=== PATIENT | male | born 1945 | race Caucasian/White ===

== ENCOUNTER 2020-01-01 10:43 | Inpatient (IN) | payer MEDICARE, SELFPAY ==
--- NOTE | 2020-01-01 | CT_ITS ---
EXAMINATION: CT ABDOMEN AND PELVIS WITHOUT CONTRAST CLINICAL INFORMATION: Right lower quadrant pain COMPARISON: Previous CT of the abdomen and pelvis January 2019 TECHNIQUE: Multidetector volumetric imaging was performed from the superior aspect of the liver through the pubic symphysis. Sagittal and coronal reformatted images were obtained on the technologist's workstation. This CT examination was performed using dose optimization techniques as appropriate, variously including the following: *Automated exposure control *Adjustment of mA and/or kV according to patient size (this includes techniques or standardized protocols for targeted exams where dose is matched to indication/reason for exam; i.e. extremities or head) *Use of iterative reconstruction technique DLP: 570 mGy-cm FINDINGS: LUNG BASES: There is dependent atelectasis seen at the lung bases. LIVER, GALLBLADDER, AND BILIARY TREE: The liver is normal in size, shape, and attenuation. No focal hepatic lesion or biliary ductal dilatation is present. There is a small gallstone in the gallbladder. There is no biliary duct dilatation. PANCREAS: Unremarkable. SPLEEN: Unremarkable. ADRENAL GLANDS: Unremarkable. KIDNEYS AND URETERS: There is bilateral hydronephrosis and ureteral dilatation. No stone is seen. BLADDER: There is a Gaytan catheter in the bladder. The bladder is empty. There is severe diffuse bladder wall thickening. This is new from January 2019 exam. GASTROINTESTINAL TRACT: The sigmoid colon is tortuous. There is mild diverticulosis of the colon. There is some stool seen in the distal colon. Small and large bowel is otherwise unremarkable. The appendix is unremarkable. ABDOMINAL WALL: There is a right inguinal hernia containing fat. LYMPH NODES: Normal. VASCULAR: Unremarkable. PELVIC VISCERA: The prostate gland is enlarged and measures 5.2 x 5.4 cm in AP and transverse dimension. OSSEOUS STRUCTURES: There are severe degenerative changes of the spine area there mild degenerative changes at the hip joints. IMPRESSION: Gaytan catheter in the bladder. Severe diffuse bladder wall thickening new from 2018 exam.. Bilateral hydronephrosis and ureteral dilatation. No stone seen. Enlarged prostate gland. Findings may be related to bladder outlet obstruction from the enlarged prostate gland. Infectious, inflammatory and neoplastic bladder process cannot be excluded. Small gallstone in the gallbladder. No evidence of cholecystitis. Mild diverticulosis.
[2020-01-01 11:18] VITALS: BP 101/58; PULSE 106; RESP 18; TEMP 36.7; O2SAT 99; BMI 34.0
--- NOTE | 2020-01-01 12:21 | PC.NURSE ---
Pt presents to the ED with c/o right groin pain, suspecting a correlation to his previous hernia repair. Awaiting initial provider eval.
[2020-01-01] MEDS: 0.9 % Sodium Chloride 1,000 ML 999 ML IVCONT ×2 (13:10→14:43)
[2020-01-01 13:17] LABS: MANUAL DIFF FLAG NO
[2020-01-01 13:20] LABS: Basophils Percent Auto 0.1 % (0-2); Hematocrit 40.5 % (42-52); Hemoglobin 13.3 g/dl (14.0-18.0); Imm Gran Abs Auto 0.08 X10*3/uL (0.00-0.03); Imm Gran Pct Auto 0.6 % (0.0-0.4); Lymphocytes Absolute Auto 0.7 X10*3/uL (1.2-4.9); Mean Corpuscular HGB Conc 32.8 g/dl (31.0-36.0); Mean Corpuscular Hemoglobin 30.4 pg (27.0-33.0); Mean Corpuscular Volume 92.7 fL (80-98); Mean Platelet Volume 9.7 fL (9.4-12.4); Monocytes Absolute Auto 0.8 X10*3/uL (0.1-1.2); Monocytes Percent Auto 5.7 % (2-11); Neutrophils Absolute Auto 12.8 X10*3/uL (2.0-8.3); Neutrophils Percent Auto 88.6 % (45-73); Platelet Count 294 X10*3/uL (160-400); Red Blood Count 4.37 X10*6/uL (4.60-5.80); White Blood Count 14.5 X10*3/uL (4.8-10.8)
[2020-01-01 13:24] LABS: Glucose Urine UA >=1000 MG/DL (NEG); Leukocyte Esterase Urine 2+ (NEG); Nitrite Urine NEG (NEG); Urine Blood 3+ (NEG); Urine Ketones NEG (NEG); Urine Protein 2+ MG/DL (NEG-TRACE)
[2020-01-01 13:27] LABS: Appearance Urine TURBID; Color Urine YELLOW
[2020-01-01] MEDS: Fluconazole 150 MG TABLET PO (13:41)
[2020-01-01] MEDS: Clotrimazole 1 % Cream 15 GM TUBE TOPICAL (13:41)
[2020-01-01] MEDS: Hydrocortisone 1 % Cream 28.35 GM TUBE 1 APPL TOPICAL (13:41)
[2020-01-01 13:43] LABS: Bacteria Urine 1+ /LPF; WBC Urine TNTC /HPF (0-4)
[2020-01-01 13:44] LABS: Lactic Acid 2.6 mmol/L (0.5-2.0)
[2020-01-01 14:32] VITALS: BP 111/56; PULSE 98; RESP 18; O2SAT 96
[2020-01-01] MEDS: cefTRIAXone sodium 2 GM in 0.9 % Sodium Chloride 50 ML IV (14:43)
[2020-01-01 14:46] VITALS: BP 125/71; PULSE 99; RESP 17; O2SAT 99
[2020-01-01 15:06] LABS: Anion Gap 13 (12-20); Blood Urea Nitrogen 33 mg/dL (9-16); Calcium 7.6 mg/dL (8.4-10.2); Carbon Dioxide 27 mmol/L (22-29); Chloride 98 mmol/L (96-108); Creatinine Clr Calc Pharmacy 33.2; Estimated Glomerular Filt Rate 37; Glucose Random 141 mg/dL (60-115); Potassium 3.7 mmol/l (3.3-5.1); Sodium 134 mmol/L (135-145)
[2020-01-01 15:15] LABS: Reflex Lactate? Lactic Acid Added
--- NOTE | 2020-01-01 15:23 | ED.ABDPAIN ---
HPI - Abdominal Pain General Chief Complaint: Abdominal Pain Stated Complaint: abd pain,diarrhea Time Seen by Provider: 01/01/20 12:20 Source: patient Mode of arrival: wheelchair Limitations: language barrier (Kiswahili Speaking ) History of Present Illness HPI narrative: 74yoM c PMHX of DM, HTN, asthma, arthritis, which is dependent presenting to the ED with complaints of right suprapubic abdominal/groin pain with associated dysuria, increased frequency/urgency with urinary incontinence along with increased weakness and rash around the foreskin of the penis x2 weeks. Denies Fvers, cough, CP/SOB, back pain, hematuria, urinary retention, diarrhea or any other symptoms complaints or concerns at this time. Related Data Home Medications Medication Instructions Recorded Confirmed albuterol sulfate 2 puff PO Q4-6H PRN 01/01/20 01/01/20 amlodipine 5 mg PO DAILY 01/01/20 01/01/20 brimonidine 1 drp OPHTHALMIC (EYE) TID 01/01/20 01/01/20 clopidogrel 75 mg PO DAILY 01/01/20 01/01/20 fluticasone propionate 2 spray INTRANASAL DAILY 01/01/20 01/01/20 glimepiride 1 mg PO DAILY 01/01/20 01/01/20 hydrochlorothiazide 12.5 mg PO DAILY 01/01/20 01/01/20 insulin glargine [Lantus Solostar 45 unit SUBCUT DAILY 01/01/20 01/01/20 U-100 Insulin] pravastatin 80 mg PO DAILY 01/01/20 01/01/20 Allergies Allergy/AdvReac Type Severity Reaction Status Date / Time No Known Allergies Allergy Unverified 12/14/19 18:22 [No Known Allergies*] Review of Systems Review of Systems Yes all other systems are reviewed and are negative Constitutional: Reports as per HPI, Denies chills, Denies fever(s), Denies frequent falls and Denies headache(s) Eyes: Reports as per HPI Reports as per HPI, Denies dizziness, Denies headache(s) and Denies neck pain Cardiovascular: Reports as per HPI, Denies Abdominal Distension, Denies chest pain, Denies chest pain at rest, Denies syncope, Denies rapid heart rate, Denies pedal edema, Denies edema, Denies irregular heart rhythm, Denies claudication, Denies leg edema, Denies lightheadedness, Denies Loss of Consciousness, Denies radiating jaw, neck or arm pain, Denies palpitations, Denies dyspnea, Denies dyspnea on exertion, Denies orthopnea, Denies paroxysmal nocturnal dyspnea and Denies slow heart rate Respiratory: Reports as per HPI, Denies cough, Denies dyspnea and Denies dyspnea on exertion Gastrointestinal: Reports as per HPI, Denies belching, Denies melena, Denies hematochezia, Denies change in bowel habits, Denies tenesmus, Denies coffee ground emesis, Denies constipation, Denies heartburn, Denies diarrhea, Denies nausea and Denies vomiting Genitourinary: Reports as per HPI, Denies hematuria, Reports oliguria, Denies genital lesions, Reports dysuria, Denies penile discharge, Denies scrotal swelling, Denies testicular mass, Denies testicular pain, Reports urinary frequency, Reports urinary hesitancy, Reports urinary incontinence and Reports urinary urgency Musculoskeletal: Reports as per HPI, Denies neck pain, Denies numbness and Denies tingling Skin/Breast: Reports as per HPI Reports Abnormal speech present, Denies dizziness, Denies syncope, Denies frequent falls, Denies headache(s), Denies numbness and Denies tingling Psychiatric: Reports as per HPI Endocrine: Reports as per HPI and Denies palpitations Hematologic/Lymphatic: Reports as per HPI Allergic/Immunologic: Reports as per HPI Physical Exam Vital Signs and I&O and Narrative: Vital Signs and I&O: Vital Signs Temp 98.0 F 01/01/20 11:18 Pulse 103 H 01/01/20 17:01 Resp 13 01/01/20 17:01 BP 144/74 H 01/01/20 17:01 Pulse Ox 97 01/01/20 17:01 Intake & Output 01/01/20 01/01/20 01/02/20 06:59 18:59 06:59 Intake Total 2049 Balance 2049 Weight 84.368 kg Intake: Intake, IV Amoun t 2049 cefTRIAXone so dium 2 gm In 0.9 50 / 50 % Sodium Chlor jason 50 ml @ 100 mls/hr IV ONCE ONE Rx#: [id number] 0.9 % Sodium C hloride 1,000 ml 1999 @ 999 mls/hr I VCONT .Q1H1M RENETTA Rx#:[id number] Body Mass Index 34.0 Const: General: cooperative, healthy appearing, comfortable, no acute distress, well developed, alert, awake and Physically active Nutritional Appearance: average body habitus Orientation/consciousness: patient oriented x3 Limitations: wheelchair HENMT: Head: Yes normal to inspection, Yes No palpable skull fracture present, Yes normocephalic and Yes atraumatic Ears: hearing grossly normal bilaterally General nose exam: Normal external nose present and Normal nares present Face and sinus: Yes normal facial exam Mouth: Normal oral and palatal mucosa present and moist mucous membranes Throat: Yes posterior oropharynx normal Eyes: General: appearance normal, both eyes and all related structures Visual [place]: normal visual copeland by confrontation Alignment and Position: alignment normal Periorbital: periorbital findings normal Eyelids: Yes eyelids normal Conjunctivae: conjunctivae normal Sclerae: sclerae normal Corneas: corneas normal Pupils: Equal, round and reactive pupils present EOM: EOMs intact bilaterally Direct Ophthalmoscopy: normal light reflex Neck: Neck: Yes normal visual inspection, Yes full ROM, Yes no lymphadenopathy, Yes no meningeal signs, Yes trachea midline and Yes supple Chest: Chest palpation & inspection: normal inspection of the chest Resp: Effort & Inspection: normal respiratory effort and able to speak in complete sentences Auscultation: clear to auscultation bilaterally, no crackles, no rales, no rhonchi and no wheezes Cardio: Rate: tachycardic Rhythm: regular rhythm Heart sounds: S1 normal heart sound present and S2 normal heart sound present Peripheral pulses: Peripheral pulses 2+ throughout GI: Inspection: Yes normal to inspection Palpation (GI): Soft to palpation, Tenderness to palpation present (GI) suprapubicly (Right suprapubic); Barragan's sign negative, obturator sign negative, psoas sign negative, with no rebound tenderness and Rovsing's sign negative and No hepatosplenomegaly present Percussion: Yes normal to percussion Auscultation: normal bowel sounds : Other: purulent thick plaque like exudate on the foreskin and glans penis c/w balanitis General: Yes no CVA tenderness Back/Spine/Pelvis: Back: no CVA tenderness Cervical Spine: normal cervical lordosis and cervical ROM normal Thoracic/Lumbar Spine: thoracic and lumbar spine normal to inspection and thoraco-lumbar ROM normal Skin: General skin exam: elasticity normal and turgor normal Lesions: no lesions Rashes: rashes noted (See above no rash to area) Neuro: General: patient oriented x3, moves all extremities, no meningeal signs and CN's II-XI intact bilaterally Cranial nerves: Yes CN's II-XII intact bilaterally, Yes Equal, round and reactive pupils present and Yes Bilaterally intact EOM present Cognition (Neuro): normal cognition Speech: Abnormal speech present Extrem: General: Yes normal to inspection Right upper extremity: normal to inspection Left upper extremity: normal to inspection Right lower extremity: normal to inspection Left lower extremity: normal to inspection Psych: Appearance: grossly normal Mental Status: mental status grossly normal Speech and movement: Normal speech and movement present Affect: normal affect Attitude: cooperative Thought process: Normal thought process present Thought content: Normal thought content present Insight: Good insight present (Psych) Judgement: Good judgement present (Psych) Course Course Course Narrative: Patient seen at 12:20PM - 74yoM c PMHX of DM, HTN, asthma, arthritis, which is dependent presenting to the ED with complaints of right suprapubic abdominal/groin pain with associated dysuria, increased frequency/urgency with urinary incontinence along with increased weakness and rash around the foreskin of the penis x2 weeks. Denies Fvers, cough, CP/SOB, back pain, hematuria, urinary retention, diarrhea or any other symptoms complaints or concerns at this time. -Plan: Labs, CT scan of abd/pelvis c IV contrast, Place a Gaytan Catheter due to moderate balanitis infection. Blood cultures, lactic acid. Provide IVF's, antifungal creams to penis balanitis infection and give 1 dose of 150mg Diflucan then re-evaluate. Labs/CT scan of ab/pelvis at 14:20PM - Elevated WBC at 14,000, BUN 33, creatinine and 1.78, lactic acid 2.6. UA consistent with UTI therefore 2 g of Rocephin ordered at this time. - Plan is to admit for UTI/dehydration/ENRIQUE/sepsis with balanitis. Patient understands agrees with this plan. Hospitalist understands agrees with this plan. MDM - Abdominal Pain Lab Data Result diagrams: 01/01/20 13:06 01/01/20 14:31 Labs: Lab Results 01/01/20 01/01/20 01/01/20 Range/Units 12:56 13:06 13:06 WBC 14.5 H (4.8-10.8) X10*3/uL RBC 4.37 L (4.60-5.80) X10*6/uL Hgb 13.3 L (14.0-18.0) g/dl Hct 40.5 L (42-52) % MCV 92.7 (80-98) fL MCH 30.4 (27.0-33.0) pg MCHC 32.8 (31.0-36.0) g/dl RDW 13.0 (11.0-16.0) % Plt Count 294 (160-400) X10*3/uL MPV 9.7 (9.4-12.4) fL Immature Gran % (Auto) 0.6 H (0.0-0.4) % Neut % (Auto) 88.6 H (45-73) % Lymph % (Auto) 5.0 L (20-40) % [place] % (Auto) 5.7 (2-11) % Eos % (Auto) 0.0 (0-4) % Baso % (Auto) 0.1 (0-2) % Neut # (Auto) 12.8 H (2.0-8.3) X10*3/uL Lymph # (Auto) 0.7 L (1.2-4.9) X10*3/uL [place] # (Auto) 0.8 (0.1-1.2) X10*3/uL Eos # (Auto) 0.0 (0.0-0.4) X10*3/uL Baso # (Auto) 0.0 (0.0-0.2) X10*3/uL Abs Immat Gran (auto) 0.08 H (0.00-0.03) X10*3/uL Absolute Nucleated RBC 0.000 (0.0-0.012) X10*3/uL Nucleated RBC % (auto) 0.0 (0.0-0.2) /100WBC Hold Purple Top SEE NOTE Sodium (135-145) mmol/L Potassium (3.3-5.1) mmol/l Chloride (96-108) mmol/L Carbon Dioxide (22-29) mmol/L Anion Gap (12-20) BUN (9-16) mg/dL Creatinine (0.5-1.4) mg/dL Estim Creat Clear Calc Estimated GFR Random Glucose (60-115) mg/dL Lactic Acid (0.5-2.0) mmol/L Calcium (8.4-10.2) mg/dL Urine Color YELLOW Urine Appearance TURBID Urine pH 6.0 (5.0-8.0) Ur Specific [place] 1.020 (1.005-1.025) Urine Protein 2+ H (NEG-TRACE) MG/DL Urine Glucose (UA) >=1000 H (NEG) MG/DL Urine Ketones NEG (NEG) MG/DL Urine Blood 3+ H (NEG) Urine Nitrite NEG (NEG) Ur Leukocyte Esterase 2+ H (NEG) Urine RBC 76-150 H (0) /HPF Urine WBC TNTC H (0-4) /HPF Ur Squamous Epith Cells NONE /LPF Urine Bacteria 1+ /LPF 01/01/20 01/01/20 Range/Units 13:06 14:31 WBC (4.8-10.8) X10*3/uL RBC (4.60-5.80) X10*6/uL Hgb (14.0-18.0) g/dl Hct (42-52) % MCV (80-98) fL MCH (27.0-33.0) pg MCHC (31.0-36.0) g/dl RDW (11.0-16.0) % Plt Count (160-400) X10*3/uL MPV (9.4-12.4) fL Immature Gran % (Auto) (0.0-0.4) % Neut % (Auto) (45-73) % Lymph % (Auto) (20-40) % [place] % (Auto) (2-11) % Eos % (Auto) (0-4) % Baso % (Auto) (0-2) % Neut # (Auto) (2.0-8.3) X10*3/uL Lymph # (Auto) (1.2-4.9) X10*3/uL [place] # (Auto) (0.1-1.2) X10*3/uL Eos # (Auto) (0.0-0.4) X10*3/uL Baso # (Auto) (0.0-0.2) X10*3/uL Abs Immat Gran (auto) (0.00-0.03) X10*3/uL Absolute Nucleated RBC (0.0-0.012) X10*3/uL Nucleated RBC % (auto) (0.0-0.2) /100WBC Hold Purple Top Sodium 134 L (135-145) mmol/L Potassium 3.7 (3.3-5.1) mmol/l Chloride 98 (96-108) mmol/L Carbon Dioxide 27 (22-29) mmol/L Anion Gap 13 (12-20) BUN 33 H (9-16) mg/dL Creatinine 1.78 H (0.5-1.4) mg/dL Estim Creat Clear Calc 33.2 Estimated GFR 37 Random Glucose 141 H (60-115) mg/dL Lactic Acid 2.6 H* (0.5-2.0) mmol/L Calcium 7.6 L (8.4-10.2) mg/dL Urine Color Urine Appearance Urine pH (5.0-8.0) Ur Specific [place] (1.005-1.025) Urine Protein (NEG-TRACE) MG/DL Urine Glucose (UA) (NEG) MG/DL Urine Ketones (NEG) MG/DL Urine Blood (NEG) Urine Nitrite (NEG) Ur Leukocyte Esterase (NEG) Urine RBC (0) /HPF Urine WBC (0-4) /HPF Ur Squamous Epith Cells /LPF Urine Bacteria /LPF Critical Care Time Critical Care Time Critical Care Time: Yes Total Critical Care Time: 60 Attestation: I attest to the [facility] Discharge Plan Discharge Clinical Impression: Acute UTI, Balanitis, Enlarged prostate, Cholelithiasis, Diverticulosis Sepsis Qualifiers: Sepsis type: sepsis due to unspecified organism Sepsis acute organ dysfunction status: with acute organ dysfunction Severe sepsis acute organ dysfunction type: acute renal failure Acute renal failure type: unspecified Severe sepsis shock status: without septic shock Qualified Code(s): A41.9 - Sepsis, unspecified organism Hydronephrosis Qualifiers: Hydronephrosis type: unspecified Qualified Code(s): N13.30 - Unspecified hydronephrosis Patient Disposition: Admitted As Inpatient [facility] Past Medical History Medical History Arthritis Asthma Diabetes mellitus, type 2 Hiatal hernia Hyperlipidemia Hypertension Surgical History H/O hernia repair Social History Social History Smoked in Last 30 Days: No Use of substances other than those prescribed or required for medical reasons: No Advance Directives: No Advance Directives Information Provided: No
[2020-01-01 17:01] VITALS: BP 144/74; PULSE 103; RESP 13; O2SAT 97
--- NOTE | 2020-01-01 17:38 | PM.IMHP ---
History of Present Illness Date of Service: 01/01/20 Chief Complaint: Flank pain 74-year-old man presenting with flank pain. He reported that he was having urinary symptoms including dark urine, dysuria. He stated that he felt cold but denied fever. 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 He seems mildly vague about his symptoms but reported that the MARINE CARGO SPECIALIST had been putting cream on his penis due to redness and he did not want that so he threw away. He was noted to have tachycardia with heart rate of 103 no fever, he was noted to gave leukocytosis, creatinine, lactic acid 2.6. ABD ct showed severe diffuse bladder wall thickening, bilateral hydronephrosis and ureteral dilatation. Possible bladder outlet obstruction from the enlarged prostate gland. He recieved Rocephin in the ED. He was also given a dose of diflucan and had topical clotriamzole and hydrocortisone. Review of Systems ENT: Comments: Denies any recent fever, chills, decrease in appetite Respiratory denies any shortness of breath, cough or sputum production Cardiovascular denies any chest pain, orthopnea, PND or edema Gastrointestinal denies any abdominal pain, nausea, vomiting, diarrhea Genitourinary denies any frequency hematuria, reports dysuria Denies any weakness or seizures All other systems are reviewed and are negative [facility] [place] Medical History (Updated 01/01/20 @ 18:20 by FLORENTIN Johns) Arthritis Asthma Diabetes mellitus, type 2 Hiatal hernia Hyperlipidemia Hypertension Cognitive capacity: Functional capacity: independent ambulation Pertinent family history: hypertension Surgical History H/O hernia repair Social History Smoked in Last 30 Days: No Use of substances other than those prescribed or required for medical reasons: No Advance Directives: No Advance Directives Information Provided: No Meds Allergies Allergy/AdvReac Type Severity Reaction Status Date / Time No Known Allergies Allergy Unverified 12/14/19 18:22 [No Known Allergies*] Home Medications Medication Instructions Recorded Confirmed Type albuterol sulfate 2 puff PO Q4-6H PRN 01/01/20 01/01/20 History amlodipine 5 mg PO DAILY 01/01/20 01/01/20 History brimonidine 1 drp OPHTHALMIC (EYE) TID 01/01/20 01/01/20 History clopidogrel 75 mg PO DAILY 01/01/20 01/01/20 History fluticasone propionate 2 spray INTRANASAL DAILY 01/01/20 01/01/20 History glimepiride 1 mg PO DAILY 01/01/20 01/01/20 History hydrochlorothiazide 12.5 mg PO DAILY 01/01/20 01/01/20 History insulin glargine [Lantus Solostar 45 unit SUBCUT DAILY 01/01/20 01/01/20 History U-100 Insulin] pravastatin 80 mg PO DAILY 01/01/20 01/01/20 History Physical Exam Vital Signs and Narrative: Vital Signs: Last Vital Signs Temp 98.0 F 01/01/20 11:18 Pulse 103 H 01/01/20 17:01 Resp 13 01/01/20 17:01 BP 144/74 H 01/01/20 17:01 Pulse Ox 97 01/01/20 17:01 Body Mass Index 34.0 Appearing in no acute distress head is normocephalic atraumatic eyes pupils are PERRLA sclera is anicteric mouth throat mucous membranes are intact and moist neck is supple no lymphadenopathy, no JVD noted lung sounds are clear to auscultation heart regular rate rhythm, clear S1, S2 positive bowel sounds, abdomen is soft, nontender patient is alert x3, no focal deficits Results Labs Labs: Laboratory Tests 01/01/20 01/01/20 01/01/20 12:56 13:06 13:06 WBC 14.5 H RBC 4.37 L Hgb 13.3 L Hct 40.5 L MCV 92.7 MCH 30.4 MCHC 32.8 RDW 13.0 Plt Count 294 MPV 9.7 Immature Gran % (Auto) 0.6 H Neut % (Auto) 88.6 H Lymph % (Auto) 5.0 L [place] % (Auto) 5.7 Eos % (Auto) 0.0 Baso % (Auto) 0.1 Neut # (Auto) 12.8 H Lymph # (Auto) 0.7 L [place] # (Auto) 0.8 Eos # (Auto) 0.0 Baso # (Auto) 0.0 Abs Immat Gran (auto) 0.08 H Absolute Nucleated RBC 0.000 Nucleated RBC % (auto) 0.0 Hold Purple Top SEE NOTE Sodium Potassium Chloride Carbon Dioxide Anion Gap BUN Creatinine Estim Creat Clear Calc Estimated GFR Random Glucose Lactic Acid Calcium Urine Color YELLOW Urine Appearance TURBID Urine pH 6.0 Ur Specific [place] 1.020 Urine Protein 2+ H Urine Glucose (UA) >=1000 H Urine Ketones NEG Urine Blood 3+ H Urine Nitrite NEG Ur Leukocyte Esterase 2+ H Urine RBC 76-150 H Urine WBC TNTC H Ur Squamous Epith Cells NONE Urine Bacteria 1+ 01/01/20 01/01/20 13:06 14:31 WBC RBC Hgb Hct MCV MCH MCHC RDW Plt Count MPV Immature Gran % (Auto) Neut % (Auto) Lymph % (Auto) [place] % (Auto) Eos % (Auto) Baso % (Auto) Neut # (Auto) Lymph # (Auto) [place] # (Auto) Eos # (Auto) Baso # (Auto) Abs Immat Gran (auto) Absolute Nucleated RBC Nucleated RBC % (auto) Hold Purple Top Sodium 134 L Potassium 3.7 Chloride 98 Carbon Dioxide 27 Anion Gap 13 BUN 33 H Creatinine 1.78 H Estim Creat Clear Calc 33.2 Estimated GFR 37 Random Glucose 141 H Lactic Acid 2.6 H* Calcium 7.6 L Urine Color Urine Appearance Urine pH Ur Specific [place] Urine Protein Urine Glucose (UA) Urine Ketones Urine Blood Urine Nitrite Ur Leukocyte Esterase Urine RBC Urine WBC Ur Squamous Epith Cells Urine Bacteria Assessment and Plan (1) Severe sepsis: Status: Acute (2) UTI (urinary tract infection): Status: Acute (3) Acute kidney injury superimposed on CKD: Status: Acute (4) Candidiasis of penis: Status: Acute 74-year-old man admitted with severe sepsis related to urinary tract infection. Abdominal CT shows possible bladder outlet obstruction due to enlarged prostate. Also malignancy is not ruled out. #Severe sepsis. Related to urinary tract infection. Leukocytosis, tachycardia, lactic acidosis. Follow blood cultures. #UTI. Rocephin, follow urine cultures. Will consult Urology for possible bladder outlet obstruction with hydronephrosis. Continue Gaytan catheter. #ENRIQUE on CKD. Related to urinary tract infection. IV fluids, continue Gaytan catheter. #Candidiasis. Noted on penis. Will continue with fluconazole and topical hydrocortisone. #Diabetes mellitus. Sliding scale, ADA diet. Continue lantus and glimeperide. #Hypertension. Stable blood pressure. Hold HCTZ due to ENRIQUE on CKD #DVT prophylaxis with heparin. Discussed with Dr. Pereira Full code Quality VTE Deep Vein Thrombosis/Pulmonary Embolism Present on Admission: No
--- NOTE | 2020-01-01 17:55 | P.EN_ITS ---
Event Note Event Note: Patient seen and examined independently and was present during yanez portion of E/M service. Agree with midlevel's history, physical, assessment, and plan. Patient presented with abdominal pain and urinary symptoms and diagnosed to have sepsis related to urinary tract infection and acute on chronic kidney disease stage 3 will continue antibiotic as prescribed follow CBC electrolytes,urine and blood cultures. On examination patient awake alert in no distress no confusion noted. 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 CT abdomen and pelvis reviewed.
[2020-01-01 18:48] LABS: ~Lactic Acid-LAB USE ONLY 0.8 mmol/L (0.5-2.0)
[2020-01-01 22:28] VITALS: BP 131/64; PULSE 106; RESP 20; O2SAT 96
--- NOTE | 2020-01-01 22:30 | PC.NURSE ---
AWAITING ROOM ASSIGNMENT FOR HOURS, THEN DELAY IN GIVING REPORT DUE TO VOLUME IN ER. PT AWAKE AND ALERT, VITALS REPEATED. PT GIVEN SANDWICH, APPLE SAUCE AND SODA.
--- NOTE | 2020-01-01 22:58 | PC.NURSE ---
rn from floor will call back for report.
--- NOTE | 2020-01-01 23:03 | PC.NURSE ---
report given to rn on floor, pt ready for transport.
[2020-01-01 23:58] VITALS: BP 140/61; PULSE 100; RESP 18; TEMP 36.9; O2SAT 96
[2020-01-02] VITALS (8 sets, daily range): BP systolic 103–153; BP diastolic 53–82; PULSE 82–104; RESP 18–20; TEMP 36.1–37.2; O2SAT 90–98; BMI 34.0
[2020-01-02 00:04] LABS: Glucose, Whole Blood 134 mg/dL (60-115)
--- NOTE | 2020-01-02 04:56 | PC.NURSE ---
Addendum entered by Bella Lyle RN 01/02/20 04:57: Patient has beefy red groin/ scrotum and discomfort given levaquin in the ED. Gaytan placed due to urinary incontinence in the ED r/t bladder outlet obstruction from lg prsotate as seen on CT. Patient oriented to room and how to use call hernadez. Patient able to teach back how to use call hernadez and discussed not getting out of bed alone. Stage 2 noted to L-Buttocks clean dry patient repositioned. Oncoming RN notified and will continue to monitor. Original Note: Patient is alert and oriented male [place]er speaking only who lives alone in elderly housing with SERVICE OFFICER services. Patient reports having multiple fall,generalized weakness, urinary issues and irritating/red area to groin. _a
[2020-01-02 06:51] LABS: Basophils Percent Auto 0.2 % (0-2); Hematocrit 34.1 % (42-52); Hemoglobin 11.2 g/dl (14.0-18.0); Imm Gran Abs Auto 0.08 X10*3/uL (0.00-0.03); Imm Gran Pct Auto 0.6 % (0.0-0.4); Lymphocytes Absolute Auto 0.7 X10*3/uL (1.2-4.9); Lymphocytes Percent Auto 5.5 % (20-40); MANUAL DIFF FLAG SCAN; Mean Corpuscular HGB Conc 32.8 g/dl (31.0-36.0); Mean Corpuscular Hemoglobin 30.6 pg (27.0-33.0); Mean Corpuscular Volume 93.2 fL (80-98); Mean Platelet Volume 9.7 fL (9.4-12.4); Monocytes Absolute Auto 0.9 X10*3/uL (0.1-1.2); Monocytes Percent Auto 7.2 % (2-11); Neutrophils Absolute Auto 10.8 X10*3/uL (2.0-8.3); Neutrophils Percent Auto 86.5 % (45-73); Platelet Count 233 X10*3/uL (160-400); Red Blood Count 3.66 X10*6/uL (4.60-5.80); Red Cell Distribution Width 13.1 % (11.0-16.0); SCAN SMEAR FLAG 1; White Blood Count 12.4 X10*3/uL (4.8-10.8)
[2020-01-02 07:23] LABS: Anion Gap 13 (12-20); Blood Urea Nitrogen 27 mg/dL (9-16); Calcium 7.3 mg/dL (8.4-10.2); Carbon Dioxide 27 mmol/L (22-29); Chloride 101 mmol/L (96-108); Creatinine Clr Calc Pharmacy 43.7; Estimated Glomerular Filt Rate 51; Glucose Fasting 95 mg/dL (60-99); Potassium 3.6 mmol/l (3.3-5.1); Sodium 137 mmol/L (135-145)
[2020-01-02 07:32] LABS: SLIDE REVIEW VERIFIED
[2020-01-02 07:38] LABS: Glucose, Whole Blood 91 mg/dL (60-115)
[2020-01-02] MEDS: glipiZIDE 5 MG TABLET 2.5 MG PO (08:03)
[2020-01-02] MEDS: Clopidogrel Bisulfate 75 MG TABLET PO (08:04)
[2020-01-02] MEDS: Heparin Sodium,Porcine 5,000 UNIT/ML VIAL 5000 UNIT SUBCUT ×2 (08:04→17:51)
[2020-01-02] MEDS: amLODIPine Besylate 5 MG TABLET PO (08:05)
[2020-01-02] MEDS: hydroCHLOROthiazide 12.5 MG TABLET PO (08:28)
[2020-01-02] MEDS: Clotrimazole 1 % Cream 15 GM TUBE TOPICAL ×2 (08:30→22:03)
--- NOTE | 2020-01-02 08:56 | PM.UROPN ---
Subjective Subjective Patient reports: no new complaints Interval history: a 74-year-old male with baseline diabetes. Presents with balanitis and paraphimosis Foreskin was reduced at bedside Should continue with clotrimoxazole cream BID to glands Physical Exam Vital Signs and I&O and Narrative: Vital Signs and I&O: Vital Signs Temp 98.9 F 01/02/20 08:00 Pulse 90 01/02/20 08:00 Resp 20 01/02/20 08:00 BP 107/58 L 01/02/20 08:00 Pulse Ox 95 01/02/20 07:00 Intake & Output 01/01/20 01/02/20 01/02/20 18:59 06:59 18:59 Intake Total 2049 / 2529 480 / 2530 Output Total 800 / 800 Balance 1250 / 1730 480 / 1730 Urine Output (Aver age ml/kg/hr) 0.79 0.79 Weight 186 lb Intake: Intake, Oral [place] unt 480 / 480 Intake, IV Amoun t 2049 cefTRIAXone so dium 2 gm In 0.9 50 / 50 % Sodium Chlor jason 50 ml @ 100 mls/hr IV ONCE ONE Rx#: [id number] 0.9 % Sodium C hloride 1,000 ml 2000 / 1999 @ 999 mls/hr I VCONT .Q1H1M [facility] Rx#:[id number] Output: Output, Urine Am ount (Catheter) 800 / 800 Urethral 800 / 800 Other: Number of Incont inent Bowel 1 Movements Last Bowel Movem ent 01/02/20 Stool Color Brown Stool Consistenc y Semi Formed Body Mass Index 34.0 Const: General: cooperative, healthy appearing, comfortable and no acute distress Nutritional Appearance: average body habitus Orientation/consciousness: oriented to person, oriented to place and oriented to time Eyes: General: appearance normal, both eyes and all related structures Chest: Chest palpation & inspection: normal inspection of the chest Resp: Effort & Inspection: normal respiratory effort Cardio: Rate: regular rate GI: Inspection: Yes normal to inspection : Penis: uncircumcised, erythematous and paraphimosis Meatus: meatus normal Scrotum: scrotum normal Skin: Hair: normal Neuro: General: oriented to person, oriented to place and oriented to time Extrem: General: Yes normal to inspection Progress Note: A&P Assessment and plan (1) Balanitis: Status: Acute (2) Paraphimosis: Status: Acute Assessment and Plan: continue topical therapy for fungal infection of glans Foreskin should remain in non retracted position Optimized with alpha-melba for urinary retention Fall Risk Details Current Medications: Current Medications Generic Name Dose Route Start Last Admin Trade Name Freq PRN Reason Stop Dose Admin Albuterol Sulfate 2 puff 01/01/20 23:58 Albuterol Sulfate 90 Mcg 18 Gm Inhaler INHALE Q4H PRN Shortness Of Breath Or Wheezing Amlodipine Besylate 5 mg 01/02/20 09:00 01/02/20 08:05 Amlodipine Besylate 5 Mg Tablet PO 5 mg DAILY [facility] Administration Protocol Brimonidine Tartrate 1 drop 01/01/20 23:58 01/02/20 02:28 Brimonidine Tartrate 0.2% Oph 5 Ml Bottle EYE-BOTH Not Given TID [facility] Clopidogrel Bisulfate 75 mg 01/02/20 09:00 01/02/20 08:04 Clopidogrel Bisulfate 75 Mg Tablet PO 75 mg DAILY [facility] Administration Clotrimazole 1 gm 01/01/20 23:58 01/02/20 08:30 Clotrimazole 1 % Cream 15 Gm Tube TOPICAL 1 gm BID [facility] Administration Fluticasone Propionate 2 spray 01/02/20 09:00 Fluticasone Propionate Nasal 16 Gm [place] NOSTRIL-B DAILY [facility] Glipizide 2.5 mg 01/02/20 07:30 01/02/20 08:03 Glipizide 5 Mg Tablet PO 2.5 mg DAILY@0730 [facility] Administration Heparin Sodium (Porcine) 5,000 unit 01/01/20 18:45 01/02/20 08:04 Heparin Sodium,Porcine 5,000 Unit/Ml Vial SUBCUT 5,000 unit Q12H [facility] Administration Hydrochlorothiazide 12.5 mg 01/02/20 09:00 01/02/20 08:28 Hydrochlorothiazide 12.5 Mg Tablet PO 12.5 mg DAILY [facility] Administration Protocol Hydrocortisone 1 appl 01/01/20 23:58 01/02/20 08:30 Hydrocortisone 1 % Ointment 28.35 Gm Tube TOPICAL Not Given BID [facility] Protocol Ceftriaxone Sodium 1 gm/ 50 mls @ 100 mls/hr 01/02/20 16:00 Sodium Chloride IV Q24H [facility] Insulin Glargine 45 unit 01/02/20 09:00 Insulin Glargine,Hum.Rec.Anlog 100 Unit/Ml 10 Ml Vial SUBCUT DAILY [facility] Insulin Human Lispro 0 unit 01/01/20 23:58 01/02/20 08:06 Insulin Lispro 100 Unit/Ml 3 Ml Vial SUBCUT 01/02/20 23:58 Not Given QIDACHS [facility] Protocol Pharmacy Consult 1 each 01/01/20 18:17 Consult Rx Perform Med Rec MISCELLANE ONCE PRN Consult order Pravastatin Sodium 80 mg 01/02/20 21:00 Pravastatin Sodium 80 Mg Tablet PO BEDTIME [facility] Time Spent With Patient Time: Total time spent is greater than 50% in coordination of care (as documented) at patient's floor/unit and/or counseling patient: Time with patient: 15 - 24 minutes
--- NOTE | 2020-01-02 09:58 | P.CDIC_ITS ---
CDI Concurrent Query Service Date: 01/03/20 Documentation Clarification: Please clarify if you are treating a proba ble/suspected/likely or confirmed: Specifics to documentation: Acute on chronic kidney disease (CKD) Stage 1 - 5 Please specify if known or undetermined Provider Response: CKD Stage 3 Other Diagnosis: acute on chronic kidney disease stage 3. PLEASE DO NOT DELETE/MODIFY EXISTING CONTENT Additional information is needed in order to code to the highest accuracy and appropriate Severity of Illness (SOI). Please clarify the information noted below in your progress notes and discharge summary. Risk Factors/Clinical Indicators/Treatments ENRIQUE superimposed on CKD. Cr. 2.76 from 2.3 Hydration as encouraged. Monitor renal function and electrolytes. Nephro consult. CDS: Meera Alvarado CCS, CDIS Contact Number: [phone] Please Review the information above and exercise your independent professional judgment in responding to the query. If you concur, pleas document in the PROGRESS NOTES and DISCHARGE SUMMARY. If you do not agree with the query, please document in the query above. THIS QUERY IS PART OF THE PERMANENT MEDICAL RECORD
--- NOTE | 2020-01-02 10:11 | MHC.CM.PN ---
Patient lives alone in an apartment and uses a w/c to assist with mobility. Patient receives 29.5 [employer] INTERN hours and a RN or SW, through [facility] . Plan is home with resumption of services and eventually to move in with his Son/Alberto.IMM addressed with Patient and the original has been given to him and a copy has been placed on the chart.
[2020-01-02] MEDS: Brimonidine Tartrate 0.2% Oph 5 ML BOTTLE 1 DROP EYE-BOTH ×2 (10:27→18:10)
[2020-01-02] MEDS: Finasteride 5 MG TABLET PO (10:27)
[2020-01-02] MEDS: Fluticasone Propionate Nasal 16 GM SPRAY 2 SPRAY NOSTRIL-B (10:27)
[2020-01-02 11:20] LABS: Glucose, Whole Blood 177 mg/dL (60-115)
[2020-01-02] MEDS: Insulin Lispro 100 UNIT/ML 3 ML VIAL SUBCUT ×2 (14:07→21:57)
[2020-01-02] MEDS: cefTRIAXone sodium 1 GM in 0.9 % Sodium Chloride 50 ML IV (17:50)
[2020-01-02 18:04] LABS: Glucose, Whole Blood 163 mg/dL (60-115)
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
[2020-01-02 21:33] LABS: Glucose, Whole Blood 232 mg/dL (60-115)
[2020-01-02] MEDS: diphenhydrAMINE HCL 50 MG/ML VIAL 25 MG IVPUSH (21:57)
[2020-01-02] MEDS: Doxazosin Mesylate 2 MG TABLET 4 MG PO (21:58)
[2020-01-02] MEDS: Pravastatin Sodium 80 MG TABLET PO (21:58)
[2020-01-03] VITALS (7 sets, daily range): BP systolic 99–112; BP diastolic 52–61; PULSE 77–86; RESP 18–20; TEMP 36.1–37.2; O2SAT 95–98
[2020-01-03] MEDS: Heparin Sodium,Porcine 5,000 UNIT/ML VIAL 5000 UNIT SUBCUT ×2 (06:24→21:52)
[2020-01-03 08:03] LABS: Glucose, Whole Blood 135 mg/dL (60-115)
[2020-01-03] MEDS: Insulin Glargine,Hum.rec.anlog 100 UNIT/ML 10 ML VIAL 45 UNIT SUBCUT (08:26)
[2020-01-03] MEDS: Clopidogrel Bisulfate 75 MG TABLET PO (08:27)
[2020-01-03] MEDS: glipiZIDE 5 MG TABLET 2.5 MG PO (08:27)
[2020-01-03] MEDS: amLODIPine Besylate 5 MG TABLET PO (08:27)
[2020-01-03] MEDS: Finasteride 5 MG TABLET PO (08:28)
[2020-01-03] MEDS: Fluticasone Propionate Nasal 16 GM SPRAY 2 SPRAY NOSTRIL-B (08:29)
[2020-01-03] MEDS: Hydrocortisone 1 % Ointment 28.35 GM TUBE 1 APPL TOPICAL (08:29)
[2020-01-03] MEDS: Brimonidine Tartrate 0.2% Oph 5 ML BOTTLE 1 DROP EYE-BOTH ×3 (08:30→21:52)
[2020-01-03] MEDS: Clotrimazole 1 % Cream 15 GM TUBE TOPICAL ×2 (08:30→21:52)
[2020-01-03] MEDS: hydroCHLOROthiazide 12.5 MG TABLET PO (08:32)
[2020-01-03 11:27] LABS: Glucose, Whole Blood 257 mg/dL (60-115)
--- NOTE | 2020-01-03 15:55 | CONS_ITS ---
DATE OF SERVICE: 01/02/2020 CONSULTING COMPLAINT: 1. Balanitis. 2. Paraphimosis. 3. Urinary retention. 4. Hydronephrosis. HISTORY OF PRESENT ILLNESS: This is a 74-year-old male. Initially presented with flank pain who reported urinary symptoms. These have been ongoing. He is not on any prostate medications. Was vague about his symptomatology. Had reported that his penis had been red and he had been getting cream for this. Was admitted and noted to have tachycardia with leukocytosis and lactic acid elevation. Abdominal CT has been performed. Notable for bilateral hydronephrosis and Gaytan catheter in the bladder. The bladder is empty. Diffuse bladder wall thickening that is new from a prior exam in January 2019. Large prostate. REVIEW OF SYSTEMS: Otherwise reported as negative. PAST MEDICAL HISTORY: Significant for diabetes, dyslipidemia, hypertension, asthma, and arthritis. SOCIAL HISTORY: Nonsmoker, nondrinker. Lives with family. 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 MEDICATIONS: On admission, reviewed and do not include any prostate medications. PHYSICAL EXAM: VITAL SIGNS: On admission, pulse 103, respiratory rate 13, BP 144/74, pulse ox 97. GENERAL: Appearance consistent with stated age. Awake, alert, and oriented. NECK: Trachea midline. RESPIRATORY: Normal excursion. CARDIOVASCULAR: Good peripheral pulses. Good capillary refill. GASTROINTESTINAL: Abdomen is soft, nontender, and nondistended. : Paraphimosis. Foreskin was reduced at this point in time. Also with balanitis and on clotrimazole. INVESTIGATIONS: WBC 12.4 down from 14.5, left shift. Creatinine 1.35, down from 1.78, baseline is approximately 1.3. ASSESSMENT AND PLAN: 1. Balanitis. Continue with clotrimazole cream. Stop steroid cream. 2. Bilateral hydronephrosis. Has Gaytan catheter in place. Addition of prostate medications, doxazosin and finasteride. Repeat imaging in 48 hours with ultrasound to check for resolution of hydronephrosis. Catheter can remain. Can move to a capped catheter rather than to a leg bag as creatinine has come into normal range. 3. We will continue to follow. MD BRISSA Moore/ROXANA / [phone]
[2020-01-03] MEDS: cefTRIAXone sodium 1 GM in 0.9 % Sodium Chloride 50 ML IV (16:06)
--- NOTE | 2020-01-03 16:11 | P.PNIM_ITS ---
Subjective Subjective Date of Service: 01/03/20 Interval History: patient presented with abdominal pain dark-colored urine and dysuria, patient was complaining of right leg pain and weakness yesterday, but today feels leg pain is significantly better. Patient denies nausea vomiting or diarrhea, no fever chills complain of intermittent lower abdominal discomfort. Review of Systems General no headache , no dizziness ,no fever, chills. CVS no chest pain, no palpitation. Respiratory no cough no sputum production no respiratory distress. Gastrointestinal no nausea no vomiting, lower abdominal pain difficulty emptying urine. Physical Exam Vital Signs and I&O and Narrative: Vital Signs and I&O: Vital Signs Temp 97.6 F 01/03/20 14:40 Pulse 79 01/03/20 14:40 Resp 18 01/03/20 14:40 BP 107/59 L 01/03/20 14:40 Pulse Ox 98 01/03/20 14:40 Intake & Output 01/02/20 01/03/20 01/03/20 18:59 06:59 18:59 Intake Total 600 / 1310 710 / 1310 720 / 720 Output Total 700 / 1550 850 / 1550 800 / 800 Balance -100 / -240 -140 / -240 -80 / -80 Urine Output (Aver age ml/kg/hr) 0.69 0.84 0.79 Weight 84.368 kg Intake: Intake, Oral [place] unt 600 / 1260 660 / 1260 720 / 720 Intake, IV Amoun t 50 / 50 cefTRIAXone so dium 1 gm In 0.9 50 / 50 % Sodium Chlor jason 50 ml @ 100 mls/hr IV Q24H [facility] Rx#: [id number] Output: Output, Urine Am ount 700 / 700 Output, Urine Am ount (Catheter) 850 / 850 800 / 800 Urethral 850 / 850 800 / 800 Other: Meal Refused No: pt is sleeping Breakfast % Eate n 50% 100% Lunch % Eaten 100% Urine SOLOMON Urine Color Straw Yellow Body Mass Index 34.0 General patient resting comfortably in no acute distress. Neck is supple no JVD. CVS regular rate rhythm, Respiratory lungs clear to auscultation, no respiratory distress, no wheeze, no rhonchi. Gastrointestinal abdomen soft, Mild suprapubic discomfort with palpation, bowel sounds audible, no no guarding , no rigidity. Extremities no clubbing cyanosis or edema. Neuro nonfocal patient moving all 4 extremity speech clear. Skin no rash right lower extremity able to move hip knee and ankle no limitation of movement Objective Data Current Medications Generic Name Dose Route Start Last Admin Trade Name Freray PRN Reason Stop Dose Admin Albuterol Sulfate 2 puff 01/01/20 23:58 Albuterol Sulfate 90 Mcg 18 Gm Inhaler INHALE Q4H PRN Shortness Of Breath Or Wheezing Amlodipine Besylate 5 mg 01/02/20 09:00 01/03/20 08:27 Amlodipine Besylate 5 Mg Tablet PO 5 mg DAILY [facility] Administration Protocol Brimonidine Tartrate 1 drop 01/01/20 23:58 01/03/20 14:25 Brimonidine Tartrate 0.2% Oph 5 Ml Bottle EYE-BOTH 1 drop TID [facility] Administration Clopidogrel Bisulfate 75 mg 01/02/20 09:00 01/03/20 08:27 Clopidogrel Bisulfate 75 Mg Tablet PO 75 mg DAILY [facility] Administration Clotrimazole 1 gm 01/01/20 23:58 01/03/20 08:30 Clotrimazole 1 % Cream 15 Gm Tube TOPICAL 1 gm BID [facility] Administration Doxazosin Mesylate 4 mg 01/02/20 21:00 01/02/20 21:58 Doxazosin Mesylate 2 Mg Tablet PO 4 mg BEDTIME [facility] Administration Protocol Finasteride 5 mg 01/02/20 09:00 01/03/20 08:28 Finasteride 5 Mg Tablet PO 5 mg DAILY [facility] Administration Fluticasone Propionate 2 spray 01/02/20 09:00 01/03/20 08:29 Fluticasone Propionate Nasal 16 Gm [place] NOSTRIL-B 2 spray DAILY [facility] Administration Glipizide 2.5 mg 01/02/20 07:30 01/03/20 08:27 Glipizide 5 Mg Tablet PO 2.5 mg DAILY@0730 [facility] Administration Heparin Sodium (Porcine) 5,000 unit 01/01/20 18:45 01/03/20 06:24 Heparin Sodium,Porcine 5,000 Unit/Ml Vial SUBCUT 5,000 unit Q12H [facility] Administration Hydrochlorothiazide 12.5 mg 01/02/20 09:00 01/03/20 08:32 Hydrochlorothiazide 12.5 Mg Tablet PO 12.5 mg DAILY [facility] Administration Protocol Hydrocortisone 1 appl 01/01/20 23:58 01/03/20 08:29 Hydrocortisone 1 % Ointment 28.35 Gm Tube TOPICAL 1 appl BID [facility] Administration Protocol Ceftriaxone Sodium 1 gm/ 50 mls @ 100 mls/hr 01/02/20 16:00 01/02/20 19:54 Sodium Chloride IV Infused Q24H [facility] Infusion Insulin Glargine 45 unit 01/02/20 09:00 01/03/20 08:26 Insulin Glargine,Hum.Rec.Anlog 100 Unit/Ml 10 Ml Vial SUBCUT 45 unit DAILY [facility] Administration Pharmacy Consult 1 each 01/01/20 18:17 Consult Rx Perform Med Rec MISCELLANE ONCE PRN Consult order Pravastatin Sodium 80 mg 01/02/20 21:00 01/02/20 21:58 Pravastatin Sodium 80 Mg Tablet PO 80 mg BEDTIME [facility] Administration Labs CBC & Chem 7: 01/02/20 05:30 01/02/20 05:30 Labs: Laboratory Results - last 24 hr 01/02/20 01/02/20 01/03/20 17:49 21:22 08:00 POC Glucose 163 H 232 H 135 H 01/03/20 11:24 POC Glucose 257 H Microbiology Microbiology Results: Microbiology 01/01/20 13:06 Blood - Venous Blood Culture - Preliminary No growth after 48 hours. 01/01/20 12:51 Urine clean catch - Clean Catch Midstream Urine Culture - Final Escherichia coli 01/01/20 14:31 Blood - Venous Blood Culture - Preliminary No growth after 24 hours. Quality VTE Deep Vein Thrombosis/Pulmonary Embolism Present on Admission: No Assessment and Plan (1) Sepsis: Status: Acute (2) Balanitis: Status: Acute (3) Hydronephrosis: Status: Acute (4) Enlarged prostate: Status: Acute (5) Acute UTI: Status: Acute (6) Diabetes mellitus, type 2: Status: Acute (7) Asthma: Status: Acute (8) Wheelchair dependence: Status: Acute Assessment and Plan: 74-year-old man admitted with severe sepsis related to urinary tract infection. Abdominal CT shows possible bladder outlet obstruction due to enlarged prostate. Also malignancy is not ruled out. #Severe sepsis. Related to urinary tract infection. WBC trending down, no fever,no chills, lactic acidosis resolved, urine culture growing Gram-negative rods blood cultures negative, continue Solomon catheter and IV ceftriaxone day 2 #ENRIQUE on CKD is stage III. Related to urinary tract infection, and retention due to enlarged prostate with bilateral hydronephrosis. continue Solomon catheter , DC IV fluid patient seen by Dr. Fuller he place patient on doxazosin and finasteride he recommend repeat imaging in 48 hours with ultrasound to check for resolution of hydronephrosis will order renal ultrasound for tomorrow morning. He recommend to cap Solomon catheter rather than to a leg bag. #Balanitis. Noted on penis. Will continue with clotrimazole and DC topical hydrocortisone. #Diabetes mellitus. blood sugar elevated continue Sliding scale, ADA diet, lantus and glimeperide. #Hypertension. Stable blood pressure, continue to hold hydrochlorothiazide. #DVT prophylaxis with heparin.
[2020-01-03 20:49] LABS: Glucose, Whole Blood 320 mg/dL (60-115)
[2020-01-03] MEDS: Doxazosin Mesylate 2 MG TABLET 4 MG PO (21:52)
[2020-01-03] MEDS: Pravastatin Sodium 80 MG TABLET PO (21:53)
[2020-01-04 04:00] VITALS: BP 139/75; PULSE 69; RESP 19; TEMP 36.8; O2SAT 96
[2020-01-04] MEDS: Heparin Sodium,Porcine 5,000 UNIT/ML VIAL 5000 UNIT SUBCUT ×2 (05:33→21:00)
[2020-01-04 06:58] LABS: Basophils Percent Auto 0.6 % (0-2); Eosinophils Absolute Auto 0.4 X10*3/uL (0.0-0.4); Eosinophils Percent Auto 7.6 % (0-4); Hematocrit 34.5 % (42-52); Hemoglobin 11.3 g/dl (14.0-18.0); Imm Gran Abs Auto 0.03 X10*3/uL (0.00-0.03); Imm Gran Pct Auto 0.6 % (0.0-0.4); Lymphocytes Absolute Auto 0.7 X10*3/uL (1.2-4.9); Lymphocytes Percent Auto 13.4 % (20-40); MANUAL DIFF FLAG SCAN; Mean Corpuscular HGB Conc 32.8 g/dl (31.0-36.0); Mean Corpuscular Hemoglobin 30.5 pg (27.0-33.0); Mean Platelet Volume 9.4 fL (9.4-12.4); Monocytes Absolute Auto 0.5 X10*3/uL (0.1-1.2); Monocytes Percent Auto 9.8 % (2-11); Neutrophils Absolute Auto 3.4 X10*3/uL (2.0-8.3); Platelet Count 211 X10*3/uL (160-400); Red Blood Count 3.71 X10*6/uL (4.60-5.80); SCAN SMEAR FLAG 1
[2020-01-04 07:33] VITALS: BP 133/66; PULSE 79; RESP 18; TEMP 36.6; O2SAT 96
[2020-01-04 07:34] LABS: Anion Gap 12 (12-20); Blood Urea Nitrogen 38 mg/dL (9-16); Calcium 7.5 mg/dL (8.4-10.2); Carbon Dioxide 29 mmol/L (22-29); Chloride 99 mmol/L (96-108); Creatinine Clr Calc Pharmacy 42.2; Estimated Glomerular Filt Rate 49; Glucose Random 334 mg/dL (60-115); Potassium 4.6 mmol/l (3.3-5.1); Sodium 135 mmol/L (135-145)
[2020-01-04 07:35] LABS: Glucose, Whole Blood 293 mg/dL (60-115)
[2020-01-04 07:36] LABS: SLIDE REVIEW VERIFIED
[2020-01-04] MEDS: Finasteride 5 MG TABLET PO (07:55)
[2020-01-04] MEDS: Clotrimazole 1 % Cream 15 GM TUBE TOPICAL ×2 (07:56→21:00)
[2020-01-04] MEDS: glipiZIDE 5 MG TABLET 2.5 MG PO (07:56)
[2020-01-04] MEDS: amLODIPine Besylate 5 MG TABLET PO (07:56)
[2020-01-04] MEDS: Clopidogrel Bisulfate 75 MG TABLET PO (07:56)
[2020-01-04] MEDS: Fluticasone Propionate Nasal 16 GM SPRAY 2 SPRAY NOSTRIL-B (07:57)
[2020-01-04] MEDS: Insulin Glargine,Hum.rec.anlog 100 UNIT/ML 10 ML VIAL 45 UNIT SUBCUT (07:57)
[2020-01-04] MEDS: Brimonidine Tartrate 0.2% Oph 5 ML BOTTLE 1 DROP EYE-BOTH ×3 (08:00→21:00)
--- NOTE | 2020-01-04 11:21 | US_ITS ---
EXAMINATION: US renal and PELVIS LIMITED (BLADDER) CLINICAL INFORMATION: Hydronephrosis. COMPARISON: Previous CT of the abdomen and pelvis 01/01/2020 TECHNIQUE: Real-time imaging of the kidneys and bladder. FINDINGS: The kidneys are normal in contour and symmetric in size in the right kidney measuring 11.0 x 5.6 x 6.8 cm and the left kidney measuring 11.1 x 6.7 x 5.6 cm. Renal cortical thickness and echogenicity is normal. No hydronephrosis is seen. The visualized right proximal and mid ureter is dilated. No renal stone or mass is seen. BLADDER: There is a Gaytan catheter in the bladder. The bladder wall is diffusely thickened and hypervascular measuring up to 1.7 cm in thickness. The prostate gland is enlarged and protrudes into the base of the bladder. The prostate gland measures 5.6 x 5.8 x 4.6 cm, volume 77 mL. Ureteral jets are not identified.. IMPRESSION: No hydronephrosis. The visualized right proximal and mid ureter is dilated. Gaytan catheter in the bladder. Diffusely thickened hypervascular bladder wall. Enlarged prostate gland that protrudes into the base of the bladder.
[2020-01-04 12:17] VITALS: BP 105/55; PULSE 79; RESP 18; TEMP 36.4; O2SAT 96
[2020-01-04 12:20] LABS: Glucose, Whole Blood 291 mg/dL (60-115)
--- NOTE | 2020-01-04 14:31 | PM.IMPN ---
Subjective Subjective Date of Service: 01/04/20 Physical Exam Vital Signs and I&O and Narrative: Vital Signs and I&O: Vital Signs Temp 97.5 F 01/04/20 12:17 Pulse 79 01/04/20 12:17 Resp 18 01/04/20 12:17 BP 105/55 L 01/04/20 12:17 Pulse Ox 96 01/04/20 12:17 Intake & Output 01/03/20 01/04/20 01/04/20 18:59 06:59 18:59 Intake Total 770 / 770 600 / 600 Output Total 800 / 2900 2100 / 2900 200 / 200 Balance -30 / -2130 -2100 / -2130 400 / 400 Urine Output (Aver age ml/kg/hr) 0.79 2.07 0.20 Intake: Intake, Oral Anil unt 720 / 720 600 / 600 Intake, IV Amoun t 50 / 50 cefTRIAXone so dium 1 gm In 0.9 50 / 50 % Sodium Chlor jason 50 ml @ 100 mls/hr IV Q24H [facility] Rx#: [id number] Output: Output, Urine Am ount 200 / 200 Output, Urine Am ount (Catheter) 800 / 2700 1900 / 2700 200 / 200 Urethral 800 / 2700 1900 / 2700 200 / 200 Other: Meal Refused Yes NPO Yes Breakfast % Eate n 100% 100% Lunch % Eaten 100% 100% Urine Color Yellow Body Mass Index 34.0 Objective Data Current Medications Generic Name Dose Route Start Last Admin Trade Name Freq PRN Reason Stop Dose Admin Albuterol Sulfate 2 puff 01/01/20 23:58 Albuterol Sulfate 90 Mcg 18 Gm Inhaler INHALE Q4H PRN Shortness Of Breath Or Wheezing Amlodipine Besylate 5 mg 01/02/20 09:00 01/04/20 07:56 Amlodipine Besylate 5 Mg Tablet PO 5 mg DAILY RENETTA Administration Protocol Brimonidine Tartrate 1 drop 01/01/20 23:58 01/04/20 08:00 Brimonidine Tartrate 0.2% Oph 5 Ml Bottle EYE-BOTH 1 drop TID RENETTA Administration Clopidogrel Bisulfate 75 mg 01/02/20 09:00 01/04/20 07:56 Clopidogrel Bisulfate 75 Mg Tablet PO 75 mg DAILY RENETTA Administration Clotrimazole 1 gm 01/01/20 23:58 01/04/20 07:56 Clotrimazole 1 % Cream 15 Gm Tube TOPICAL 1 gm BID RENETTA Administration Doxazosin Mesylate 4 mg 01/02/20 21:00 01/03/20 21:52 Doxazosin Mesylate 2 Mg Tablet PO 4 mg BEDTIME RENETTA Administration Protocol Finasteride 5 mg 01/02/20 09:00 01/04/20 07:55 Finasteride 5 Mg Tablet PO 5 mg DAILY RENETTA Administration Fluticasone Propionate 2 spray 01/02/20 09:00 01/04/20 07:57 Fluticasone Propionate Nasal 16 Gm [place] NOSTRIL-B 2 spray DAILY RENETTA Administration Glipizide 2.5 mg 01/02/20 07:30 01/04/20 07:56 Glipizide 5 Mg Tablet PO 2.5 mg DAILY@0730 RENETTA Administration Heparin Sodium (Porcine) 5,000 unit 01/01/20 18:45 01/04/20 05:33 Heparin Sodium,Porcine 5,000 Unit/Ml Vial SUBCUT 5,000 unit Q12H RENETTA Administration Ceftriaxone Sodium 1 gm/ 50 mls @ 100 mls/hr 01/02/20 16:00 01/03/20 16:52 Sodium Chloride IV Infused Q24H RENETTA Infusion Insulin Glargine 45 unit 01/02/20 09:00 01/04/20 07:57 Insulin Glargine,Hum.Rec.Anlog 100 Unit/Ml 10 Ml Vial SUBCUT 45 unit DAILY RENETTA Administration Insulin Human Lispro 0 unit 01/04/20 16:30 Insulin Lispro 100 Unit/Ml 3 Ml Vial SUBCUT QIDACHS [facility] Protocol Pharmacy Consult 1 each 01/01/20 18:17 Consult Rx Perform Med Rec MISCELLANE ONCE PRN Consult order Pravastatin Sodium 80 mg 01/02/20 21:00 01/03/20 21:53 Pravastatin Sodium 80 Mg Tablet PO 80 mg BEDTIME RENETTA Administration Labs CBC & Chem 7: 01/04/20 06:28 01/04/20 06:28 Labs: Laboratory Results - last 24 hr 01/03/20 01/04/20 01/04/20 20:40 06:28 06:28 MCV 93.0 MCH 30.5 MCHC 32.8 RDW 13.0 Plt Count 211 MPV 9.4 Immature Gran % (Auto) 0.6 H Neut % (Auto) 68.0 Lymph % (Auto) 13.4 L Miller % (Auto) 9.8 Eos % (Auto) 7.6 H Baso % (Auto) 0.6 Lymph # (Auto) 0.7 L Miller # (Auto) 0.5 Eos # (Auto) 0.4 Baso # (Auto) 0.0 Abs Immat Gran (auto) 0.03 Absolute Neuts (auto) 3.4 Absolute Nucleated RBC 0.000 Nucleated RBC % (auto) 0.0 Smear Tech's Comments VERIFIED Anion Gap 12 Estim Creat Clear Calc 42.2 Estimated GFR 49 POC Glucose 320 H Random Glucose 334 H D Calcium 7.5 L 01/04/20 01/04/20 07:31 12:13 MCV MCH MCHC RDW Plt Count MPV Immature Gran % (Auto) Neut % (Auto) Lymph % (Auto) Miller % (Auto) Eos % (Auto) Baso % (Auto) Lymph # (Auto) Miller # (Auto) Eos # (Auto) Baso # (Auto) Abs Immat Gran (auto) Absolute Neuts (auto) Absolute Nucleated RBC Nucleated RBC % (auto) Smear Tech's Comments Anion Gap Estim Creat Clear Calc Estimated GFR POC Glucose 293 H 291 H Random Glucose Calcium Microbiology Microbiology Results: Microbiology 01/01/20 14:31 Blood - Venous Blood Culture - Preliminary No growth after 48 hours. 01/01/20 13:06 Blood - Venous Blood Culture - Preliminary No growth after 48 hours. 01/01/20 12:51 Urine clean catch - Clean Catch Midstream Urine Culture - Final Escherichia coli Progress Note: A&P (1) Acute UTI: Status: Acute (2) Acute kidney injury superimposed on CKD: Status: Acute (3) Balanitis: Status: Acute (4) Hydronephrosis: Status: Acute Assessment and Plan: 74-year-old man admitted with severe sepsis related to urinary tract infection. Abdominal CT shows possible bladder outlet obstruction due to enlarged prostate. Also malignancy is not ruled out. 1.Severe sepsis. Related to urinary tract infection. WBC trending down, no fever,no chills, lactic acidosis resolved, urine culture growing E coli sensitive to ceftriaxone, blood culture prelim negative at 48 hour, continue Gaytan catheter and IV ceftriaxone day 3 2.ENRIQUE on CKD is stage III. Related to urinary tract infection, and retention due to enlarged prostate with bilateral hydronephrosis. continue Gaytan catheter off IV fluid patient seen by Dr. Fuller he place patient on doxazosin and finasteride . renal sono-? hydroureter: He recommend to cap Gaytan catheter rather than to a leg bag. urology fu pending 3.Balanitis. Noted on penis. Will continue with clotrimazole and DC topical hydrocortisone. 4.Diabetes mellitus. blood sugar elevated continue Sliding scale, ADA diet, lantus and glimeperide. 5.Hypertension. Stable blood pressure, continue to hold hydrochlorothiazide. 6. DVT prophylaxis with heparin. Quality VTE Deep Vein Thrombosis/Pulmonary Embolism Present on Admission: No
[2020-01-04 15:29] VITALS: BP 140/70; PULSE 85; RESP 14; TEMP 36.8; O2SAT 97
--- NOTE | 2020-01-04 16:35 | PM.UROPN ---
Subjective Subjective Patient reports: no new complaints Interval history: A 74-year-old male with baseline diabetes. original presentation with balanitis and paraphimosis On imaging was found to have bilateral chronic hydronephrosis with hydroureter down the level bladder Repeat ultrasound shows persistence of hydronephrosis on right Resolved on left Creatinine at baseline Presumed chronic in nature Would continue with catheter Physical Exam Vital Signs and I&O and Narrative: Vital Signs and I&O: Vital Signs Temp 98.3 F 01/04/20 15:29 Pulse 85 01/04/20 15:29 Resp 14 01/04/20 15:29 BP 140/70 H 01/04/20 15:29 Pulse Ox 97 01/04/20 15:29 Intake & Output 01/03/20 01/04/20 01/04/20 18:59 06:59 18:59 Intake Total 770 / 770 600 / 600 Output Total 800 / 2900 2100 / 2900 200 / 200 Balance -30 / -2130 -2100 / -2130 400 / 400 Urine Output (Aver age ml/kg/hr) 0.79 2.07 0.20 Intake: Intake, Oral Anil unt 720 / 720 600 / 600 Intake, IV Amoun t 50 / 50 cefTRIAXone so dium 1 gm In 0.9 50 / 50 % Sodium Chlor jason 50 ml @ 100 mls/hr IV Q24H [facility] Rx#: [id number] Output: Output, Urine Am ount 200 / 200 Output, Urine Am ount (Catheter) 800 / 2700 1900 / 2700 200 / 200 Urethral 800 / 2700 1900 / 2700 200 / 200 Other: Meal Refused Yes NPO Yes Breakfast % Eate n 100% 100% Lunch % Eaten 100% 100% Urine Color Yellow Body Mass Index 34.0 Const: General: cooperative, healthy appearing, comfortable and no acute distress Nutritional Appearance: average body habitus Orientation/consciousness: oriented to person, oriented to place and oriented to time Eyes: General: appearance normal, both eyes and all related structures Chest: Chest palpation & inspection: normal inspection of the chest Resp: Effort & Inspection: normal respiratory effort Cardio: Rate: regular rate GI: Inspection: Yes normal to inspection Skin: Hair: normal Neuro: General: oriented to person, oriented to place and oriented to time Extrem: General: Yes normal to inspection Progress Note: A&P Assessment and plan (1) Hydronephrosis: Status: Acute (2) Paraphimosis: Status: Acute Assessment and Plan: creatinine at baseline Paraphimosis resolved Balanitis clearing Would cap catheter and teach him how to use. Will need outpatient evaluation for prostate procedure Fall Risk Details Current Medications: Current Medications Generic Name Dose Route Start Last Admin Trade Name Freq PRN Reason Stop Dose Admin Albuterol Sulfate 2 puff 01/01/20 23:58 Albuterol Sulfate 90 Mcg 18 Gm Inhaler INHALE Q4H PRN Shortness Of Breath Or Wheezing Amlodipine Besylate 5 mg 01/02/20 09:00 01/04/20 07:56 Amlodipine Besylate 5 Mg Tablet PO 5 mg DAILY RENETTA Administration Protocol Brimonidine Tartrate 1 drop 01/01/20 23:58 01/04/20 08:00 Brimonidine Tartrate 0.2% Oph 5 Ml Bottle EYE-BOTH 1 drop TID RENETTA Administration Clopidogrel Bisulfate 75 mg 01/02/20 09:00 01/04/20 07:56 Clopidogrel Bisulfate 75 Mg Tablet PO 75 mg DAILY RENETTA Administration Clotrimazole 1 gm 01/01/20 23:58 01/04/20 07:56 Clotrimazole 1 % Cream 15 Gm Tube TOPICAL 1 gm BID RENETTA Administration Doxazosin Mesylate 4 mg 01/02/20 21:00 01/03/20 21:52 Doxazosin Mesylate 2 Mg Tablet PO 4 mg BEDTIME RENETTA Administration Protocol Finasteride 5 mg 01/02/20 09:00 01/04/20 07:55 Finasteride 5 Mg Tablet PO 5 mg DAILY RENETTA Administration Fluticasone Propionate 2 spray 01/02/20 09:00 01/04/20 07:57 Fluticasone Propionate Nasal 16 Gm [place] NOSTRIL-B 2 spray DAILY RENETTA Administration Glipizide 2.5 mg 01/02/20 07:30 01/04/20 07:56 Glipizide 5 Mg Tablet PO 2.5 mg DAILY@0730 RENETTA Administration Heparin Sodium (Porcine) 5,000 unit 01/01/20 18:45 01/04/20 05:33 Heparin Sodium,Porcine 5,000 Unit/Ml Vial SUBCUT 5,000 unit Q12H RENETTA Administration Ceftriaxone Sodium 1 gm/ 50 mls @ 100 mls/hr 01/02/20 16:00 01/03/20 16:52 Sodium Chloride IV Infused Q24H R[facility]TA Infusion Insulin Glargine 45 unit 01/02/20 09:00 01/04/20 07:57 Insulin Glargine,Hum.Rec.Anlog 100 Unit/Ml 10 Ml Vial SUBCUT 45 unit DAILY RENETTA Administration Insulin Human Lispro 0 unit 01/04/20 16:30 Insulin Lispro 100 Unit/Ml 3 Ml Vial SUBCUT QIDACHS [facility] Protocol Pharmacy Consult 1 each 01/01/20 18:17 Consult Rx Perform Med Rec MISCELLANE ONCE PRN Consult order Pravastatin Sodium 80 mg 01/02/20 21:00 01/03/20 21:53 Pravastatin Sodium 80 Mg Tablet PO 80 mg BEDTIME RENETTA Administration Time Spent With Patient Time: Total time spent is greater than 50% in coordination of care (as documented) at patient's floor/unit and/or counseling patient: Time with patient: less than 15 minutes
[2020-01-04 16:44] LABS: Glucose, Whole Blood 298 mg/dL (60-115)
[2020-01-04] MEDS: cefTRIAXone sodium 1 GM in 0.9 % Sodium Chloride 50 ML IV (16:49)
[2020-01-04] MEDS: Insulin Lispro 100 UNIT/ML 3 ML VIAL SUBCUT ×2 (16:51→21:10)
[2020-01-04 19:59] VITALS: BP 100/51; PULSE 85; RESP 18; TEMP 37.3; O2SAT 96
[2020-01-04] MEDS: Pravastatin Sodium 80 MG TABLET PO (20:59)
[2020-01-04] MEDS: Doxazosin Mesylate 2 MG TABLET 4 MG PO (21:01)
[2020-01-04 21:11] LABS: Glucose, Whole Blood 246 mg/dL (60-115)
[2020-01-05] VITALS (8 sets, daily range): BP systolic 107–151; BP diastolic 59–68; PULSE 74–89; RESP 17–20; TEMP 35.9–36.3; O2SAT 96–98
[2020-01-05 00:35] LABS: Glucose, Whole Blood 227 mg/dL (60-115)
[2020-01-05] MEDS: Heparin Sodium,Porcine 5,000 UNIT/ML VIAL 5000 UNIT SUBCUT ×2 (05:50→18:22)
[2020-01-05 07:34] LABS: Glucose, Whole Blood 227 mg/dL (60-115)
[2020-01-05 08:02] LABS: Glucose, Whole Blood 353 mg/dL (60-115)
[2020-01-05] MEDS: Insulin Lispro 100 UNIT/ML 3 ML VIAL SUBCUT ×4 (08:41→21:09)
[2020-01-05] MEDS: amLODIPine Besylate 5 MG TABLET PO (08:42)
[2020-01-05] MEDS: Finasteride 5 MG TABLET PO (08:42)
[2020-01-05] MEDS: Clopidogrel Bisulfate 75 MG TABLET PO (08:42)
[2020-01-05] MEDS: glipiZIDE 5 MG TABLET 2.5 MG PO (08:42)
[2020-01-05] MEDS: Insulin Glargine,Hum.rec.anlog 100 UNIT/ML 10 ML VIAL 50 UNIT SUBCUT (09:11)
[2020-01-05] MEDS: Fluticasone Propionate Nasal 16 GM SPRAY 2 SPRAY NOSTRIL-B (09:13)
[2020-01-05] MEDS: Clotrimazole 1 % Cream 15 GM TUBE TOPICAL ×2 (09:14→21:09)
[2020-01-05] MEDS: Brimonidine Tartrate 0.2% Oph 5 ML BOTTLE 1 DROP EYE-BOTH ×3 (09:15→21:09)
[2020-01-05 11:56] LABS: Glucose, Whole Blood 285 mg/dL (60-115)
--- NOTE | 2020-01-05 14:43 | PC.NURSE ---
f/c removed at 10am. unable to void. bladder scan pvr was 500ml. #16 Fr Cath inserted without diff. draining bloody urine at this time.
--- NOTE | 2020-01-05 14:59 | MHC.CM.PN ---
Addendum entered by Bella Wills 01/05/20 15:47: [facility] IS ACCEPTING PATIENT HOSPITALIST MADE AWARE. PATIENT WILL DC WEDNESDAY (ANTICIPATED) Original Note: PER [facility] STAFF MEMBER, PATIENT IS STARTED WITH [facility] OF TODAY. [facility]AN, TRANSITION OF CARE RN, AWARE AND GIVES AUTH TO PUT IN REFERRAL TO [facility], [facility] IS NOT TAKING REFERRALS FOR WEEKEND DC PER CONVERSATION WITH CASE MANAGEMENT TEAM. REAGAN'S CONTACT NUMBER IS [phone]
--- NOTE | 2020-01-05 15:06 | MHC.CLN ---
PO INTAKE 100% DIET RX: 1500-APPROPRIATE PT RECEIVING GLUCERNA BID AND SHEREE FOR WOUND HEALING FOLLOWING
--- NOTE | 2020-01-05 15:28 | PC.NURSE ---
1500 F/C reinserted easily. Was unable to void. PVR was 500ml. Gaytan now draining bloody urine. Dr Moraes and Dr Fuller aware
[2020-01-05] MEDS: cefTRIAXone sodium 1 GM in 0.9 % Sodium Chloride 50 ML IV (16:01)
[2020-01-05 17:10] LABS: Glucose, Whole Blood 164 mg/dL (60-115)
--- NOTE | 2020-01-05 19:00 | PM.IMPN ---
Subjective Subjective Date of Service: 01/05/20 Interval History: Hematuria Review of Systems patient denies any chest pain or shortness of breath or abdominal pain Physical Exam Vital Signs and I&O and Narrative: Vital Signs and I&O: Vital Signs Temp 97.2 F 01/05/20 15:18 Pulse 76 01/05/20 15:18 Resp 17 01/05/20 15:18 BP 107/60 01/05/20 15:18 Pulse Ox 97 01/05/20 15:18 Intake & Output 01/05/20 01/05/20 01/06/20 06:59 18:59 06:59 Intake Total 180 / 830 810 / 810 Output Total 1300 / 2300 1400 / 1400 Balance -1120 / -1470 -590 / -590 Urine Output (Aver age ml/kg/hr) 1.28 1.38 Intake: Intake, Oral [place] unt 180 / 780 760 / 760 Intake, IV Amoun t 50 / 50 cefTRIAXone so dium 1 gm In 0.9 50 / 50 % Sodium Chlor jason 50 ml @ 100 mls/hr IV Q24H [facility] Rx#: [id number] Output: Output, Urine Am ount 700 / 700 Output, Urine Am ount (Catheter) 1300 / 2300 700 / 700 Urethral 1300 / 2300 700 / 700 Other: Meal Refused No NPO No Breakfast % Eate n 100% Lunch % Eaten 100% Urine Urinal Urine Color Yellow Yellow Body Mass Index 34.0 physical exam: cvs: [id number], [id number] , no murmur res: clear to auscultation ,no rhonchii or wheezing abd: no rebound or guarding ,nt, bs present. ext pulses present , no cyanosis neuro: axo3 , nonfocal. gu: has urinary bag with pinkish urine Objective Data Current Medications Generic Name Dose Route Start Last Admin Trade Name Freq PRN Reason Stop Dose Admin Albuterol Sulfate 2 puff 01/01/20 23:58 Albuterol Sulfate 90 Mcg 18 Gm Inhaler INHALE Q4H PRN Shortness Of Breath Or Wheezing Amlodipine Besylate 5 mg 01/02/20 09:00 01/05/20 08:42 Amlodipine Besylate 5 Mg Tablet PO 5 mg DAILY [facility] Administration Protocol Brimonidine Tartrate 1 drop 01/01/20 23:58 10/09/20 14:54 Brimonidine Tartrate 0.2% Oph 5 Ml Bottle EYE-BOTH 1 drop TID RENETTA Administration Clopidogrel Bisulfate 75 mg 01/02/20 09:00 01/05/20 08:42 Clopidogrel Bisulfate 75 Mg Tablet PO 75 mg DAILY RENETTA Administration Clotrimazole 1 gm 01/01/20 23:58 01/05/20 09:14 Clotrimazole 1 % Cream 15 Gm Tube TOPICAL 1 gm BID RENETTA Administration Doxazosin Mesylate 4 mg 01/02/20 21:00 01/04/20 21:01 Doxazosin Mesylate 2 Mg Tablet PO 4 mg BEDTIME RENETTA Administration Protocol Finasteride 5 mg 01/02/20 09:00 01/05/20 08:42 Finasteride 5 Mg Tablet PO 5 mg DAILY RENETTA Administration Fluticasone Propionate 2 spray 01/02/20 09:00 01/05/20 09:13 Fluticasone Propionate Nasal 16 Gm [place] NOSTRIL-B 2 spray DAILY RENETTA Administration Glipizide 2.5 mg 01/02/20 07:30 01/05/20 08:42 Glipizide 5 Mg Tablet PO 2.5 mg DAILY@0730 RENETTA Administration Heparin Sodium (Porcine) 5,000 unit 01/01/20 18:45 01/05/20 18:22 Heparin Sodium,Porcine 5,000 Unit/Ml Vial SUBCUT 5,000 unit Q12H R[facility] Administration Ceftriaxone Sodium 1 gm/ 50 mls @ 100 mls/hr 01/02/20 16:00 01/05/20 16:44 Sodium Chloride IV Infused Q24H [facility] Infusion Insulin Glargine 50 unit 01/05/20 09:00 01/05/20 09:11 Insulin Glargine,Hum.Rec.Anlog 100 Unit/Ml 10 Ml Vial SUBCUT 50 unit DAILY [facility] Administration Insulin Human Lispro 0 unit 01/04/20 16:30 01/05/20 17:15 Insulin Lispro 100 Unit/Ml 3 Ml Vial SUBCUT 2 unit QIDACHS [facility] Administration Protocol Pharmacy Consult 1 each 01/01/20 18:17 Consult Rx Perform Med Rec MISCELLANE ONCE PRN Consult order Pravastatin Sodium 80 mg 01/02/20 21:00 01/04/20 20:59 Pravastatin Sodium 80 Mg Tablet PO 80 mg BEDTIME RENETTA Administration Labs CBC & Chem 7: 01/04/20 06:28 01/04/20 06:28 Labs: Laboratory Results - last 24 hr 01/04/20 01/05/20 01/05/20 21:05 00:30 00:30 POC Glucose 246 H 227 H 227 H 01/05/20 01/05/20 01/05/20 07:58 11:29 17:05 POC Glucose 353 H* 285 H 164 H Microbiology Microbiology Results: Microbiology 01/01/20 14:31 Blood - Venous Blood Culture - Preliminary No growth after 48 hours. 01/01/20 13:06 Blood - Venous Blood Culture - Preliminary No growth after 48 hours. 01/01/20 12:51 Urine clean catch - Clean Catch Midstream Urine Culture - Final Escherichia coli Progress Note: A&P (1) Acute UTI: Status: Acute (2) Hydronephrosis: Status: Acute (3) Hematuria: Status: Acute (4) Acute kidney injury superimposed on CKD: Status: Acute (5) Balanitis: Status: Acute Assessment and Plan: 74-year-old man admitted with severe sepsis related to urinary tract infection. Abdominal CT shows possible bladder outlet obstruction due to enlarged prostate. Also malignancy is not ruled out. 1.Severe sepsis. Related to urinary tract infection. WBC trending down, no fever,no chills, lactic acidosis resolved, urine culture growing E coli sensitive to ceftriaxone, blood culture prelim negative at 48 hour, continue Al catheter and IV ceftriaxone day 4 2.ENRIQEU on CKD is stage III. Related to urinary tract infection, and retention due to enlarged prostate with bilateral hydronephrosis. continue Al catheter off IV fluid patient seen by Dr. Fuller he place patient on doxazosin and finasteride . renal sono-? hydroureter: He recommend to cap Al catheter rather than to a leg bag. urology fu : continue to recommend treat UTI with IV antibiotics. hematuria green: Question related Al ingestion initially Al was removed but patient had started retained around 500 mL-al replaced -subsequently hematuria- will continue to monitor. 3.Balanitis. Noted on penis. Will continue with clotrimazole and DC topical hydrocortisone. 4.Diabetes mellitus. blood sugar elevated continue Sliding scale, ADA diet, lantus and glimeperide. 5.Hypertension. Stable blood pressure, continue to hold hydrochlorothiazide. 6. DVT prophylaxis with heparin. Quality VTE Deep Vein Thrombosis/Pulmonary Embolism Present on Admission: No
[2020-01-05] MEDS: Pravastatin Sodium 80 MG TABLET PO (21:09)
[2020-01-05] MEDS: Doxazosin Mesylate 2 MG TABLET 4 MG PO (21:10)
[2020-01-05 21:11] LABS: Glucose, Whole Blood 232 mg/dL (60-115)
[2020-01-06 03:49] VITALS: BP 101/61; PULSE 84; RESP 16; TEMP 36; O2SAT 97
[2020-01-06] MEDS: Heparin Sodium,Porcine 5,000 UNIT/ML VIAL 5000 UNIT SUBCUT (06:23)
[2020-01-06 07:54] VITALS: BP 121/60; PULSE 85; RESP 16; TEMP 36.4; O2SAT 98
[2020-01-06 07:55] LABS: Glucose, Whole Blood 214 mg/dL (60-115)
[2020-01-06] MEDS: amLODIPine Besylate 5 MG TABLET PO (08:12)
[2020-01-06] MEDS: Finasteride 5 MG TABLET PO (08:12)
[2020-01-06] MEDS: glipiZIDE 5 MG TABLET 2.5 MG PO (08:13)
[2020-01-06] MEDS: Clopidogrel Bisulfate 75 MG TABLET PO (08:13)
[2020-01-06] MEDS: Insulin Lispro 100 UNIT/ML 3 ML VIAL SUBCUT ×2 (08:13→11:45)
[2020-01-06] MEDS: Insulin Glargine,Hum.rec.anlog 100 UNIT/ML 10 ML VIAL 50 UNIT SUBCUT (08:14)
[2020-01-06 11:14] VITALS: BP 137/62; PULSE 80; RESP 18; TEMP 36.1; O2SAT 98
[2020-01-06 11:15] LABS: Glucose, Whole Blood 256 mg/dL (60-115)
[2020-01-06] MEDS: Fluticasone Propionate Nasal 16 GM SPRAY 2 SPRAY NOSTRIL-B (11:45)
[2020-01-06] MEDS: Brimonidine Tartrate 0.2% Oph 5 ML BOTTLE 1 DROP EYE-BOTH ×2 (11:46→15:17)
[2020-01-06] MEDS: Clotrimazole 1 % Cream 15 GM TUBE TOPICAL (11:46)
--- NOTE | 2020-01-06 13:16 | MHC.CM.PN ---
DISCHARGE PLANNED FOR TODAY, HOME WITH RESUMPTION OF STOCK REPLENISHER AND [facility] WELL A NEW REFERRAL FOR [facility].
--- NOTE | 2020-01-06 14:17 | W.MHC.F2F ---
Service Date Service Date: 01/06/20 Reasons for Services overseeing care: Maxime Fernandez MD . Homebound: Leaving the home is medically contraindicated at this time without the asist of a device and/or another person due th the listed conditions above and below. Certification: Based on the above findings, I certify that this patient is confined to the home and needs intermittent long term care, physical therapy and/or speech therapy, or continues to need occupational therapy. The patient is under my care, and I have initiated the establishment of the plan of care. The patient will be followed by a physician who will periodically review the plan of care.
--- NOTE | 2020-01-06 14:19 | PM.DS ---
DS: Providers Provider Date of admission: 01/01/20 16:47 Primary care physician: Maxime Fernandez MD Consults: 01/01/20 23:58 Consult to Urology Routine Consulting Provider: [facility] Reason for consultation: bladder outlet obstruction Has provider been notified: No DS: Diagnosis Discharge Diagnosis (1) Acute UTI: Status: Acute (2) Hydronephrosis: Status: Acute (3) Hematuria: Status: Acute (4) Acute kidney injury superimposed on CKD: Status: Acute (5) Balanitis: Status: Acute DS: Summary Hospital Course Hospital Course: [id number] man presenting with flank pain. He reported that he was having urinary symptoms including dark urine, dysuria. He stated that he felt cold but denied fever. He denied nausea, vomiting, diarrhea.He lives alone but has a BAR MACHINE OPERATOR PRODUCTION who assist in his care. He seems mildly vague about his symptoms but reported that the BAR MACHINE OPERATOR PRODUCTION had been putting cream on his penis due to redness and he did not want that so he threw away. He was noted to have tachycardia with heart rate of 103 no fever, he was noted to gave leukocytosis, creatinine, lactic acid 2.6. ABD ct showed severe diffuse bladder wall thickening, bilateral hydronephrosis and ureteral dilatation. Possible bladder outlet obstruction from the enlarged prostate gland. He recieved Rocephin in the ED. He was also given a dose of diflucan and had topical clotriamzole and hydrocortisone. Plan: Initially patient admitted forSevere sepsis probablyRelated to urinary tract infection. patient was started on IV antibiotics, subsequently WBC trending down, no fever,no chills, lactic acidosis resolved, urine culture growing E coli sensitive to ceftriaxone, blood culture prelim negative at 48 hour. discussed with Urology and patient was switched on p.o. antibiotic upon discharge- complete the course of Ceftin.. 2.ENRIQUE on CKD is stage III. Related to urinary tract infection, and retention due to enlarged prostate with bilateral hydronephrosis. Patient was started on IV fluids and Al was placed: furthermore seen by urologist who recommended to add doxazosin and finasteride colon and urology also repeated the renalsono and thought to be chronic dilation of the ureter. voiding trials was given but patient failed, and urology recommended to place follow up back- afterwards has some pinkish urine question hematuria mild related to Al ingestion as per urology. urology recommended to hold off on Plavix for 2 days and then continue if hematuria resolves further management as per PCP. hematuria green: Question related Al ingestion initially Al was removed but patient had started retained around 500 mL-al replaced -subsequently hematuria- will continue to monitor. Patient needs to follow-up with Urology outpatient Dr. Uli hernández from urology. 3.Balanitis. Noted on penis. continue with clotrimazole . please repeat renal function and electrolytes with PCP next week, further management as per PCP. assessment in plan coordination spent time for discharge 45 minutes. Time Spent with Patient Time attestation: Total time spent providing and/or coordinating discharge services: Quality: VTE Deep Vein Thrombosis/Pulmonary Embolism Present on Admission: No Physical Exam Vital Signs: Vital Signs: Vital Signs Temp Pulse Resp BP Pulse Ox 01/06/20 11:14 97 F 80 18 137/62 98 01/06/20 07:54 97.5 F 85 16 121/60 98 01/06/20 03:49 96.8 F 84 16 101/61 97 01/05/20 23:25 97.4 F 74 18 127/64 96 01/05/20 21:10 82 118/60 01/05/20 19:49 96.7 F L 85 118/59 L 97 01/05/20 15:18 97.2 F 76 17 107/60 97 Body Mass Index 34.0 physical exam: cvs: rrr, [id number] , no murmur res: clear to auscultation ,no rhonchii or wheezing abd: no rebound or guarding ,nt, bs present. ext pulses present , no cyanosis neuro: axo3 , nonfocal. gu: has urinary bag with pinkish urine improving from yesterday , penile area seems improving , no erythema DS: Data Data Completed and Pending Labs on day of discharge: Labs from last 24 hours 01/06/20 01/06/20 01/05/20 11:11 07:52 21:02 POC Glucose 256 H 214 H 232 H 01/05/20 17:05 POC Glucose 164 H Preliminary micro results at discharge 01/01/20 14:31 Blood Culture - Preliminary Blood - Venous No growth after 48 hours. 01/01/20 13:06 Blood Culture - Preliminary Blood - Venous No growth after 48 hours. Discharge Plan Discharge Patient Disposition: Home Health Service Referrals: [facility] [Outside] (THE NURSE WILL SEE YOU AT HOME TOMORROW 01/07/20) Name,MD Maxime [Primary Care Provider] - Discharge Medications: New cefuroxime axetil 250 mg tablet 250 mg PO BID Qty: 14 RF: 0 clotrimazole 1 % cream 1 applic topical BID Qty: 15 RF: 0 Continued amlodipine 5 mg tablet 5 mg PO DAILY RF: 0 glimepiride 1 mg tablet 1 mg PO DAILY RF: 0 pravastatin 80 mg tablet 80 mg PO DAILY RF: 0 brimonidine 0.2 % drops 1 drp ophthalmic (eye) TID RF: 0 albuterol sulfate 90 mcg/actuation HFA aerosol inhaler 2 puff PO Q4-6H PRN (Reason: Shortness Of Breath Or Wheezing) RF: 0 fluticasone propionate 50 mcg/actuation spray,suspension 2 spray intranasal DAILY RF: 0 Lantus Solostar U-100 Insulin 100 unit/mL (3 mL) insulin pen 45 unit subcut DAILY RF: 0 Held clopidogrel 75 mg tablet 75 mg PO DAILY RF: 0 Hold Instructions: Resume on 01/09/20. Hold Plavix until Wednesday, if patient still has hematuria discussed with PCP for further use. Discontinued hydrochlorothiazide 12.5 mg tablet 12.5 mg PO DAILY RF: 0 Discharge Orders: Discharge Order (Routine); Ordered 01/06/20 Ordered By: Keke Moraes Diet: diabetic diet Activity on Discharge: As tolerated Visit Report Forms: Patient Portal Discharge page Care Plan Goals: sepsis secondary to UTI: patient treated with IV antibiotics subsequently improving denies any new urinary complaints, patient will be going home with p.o. antibiotics. patient also has urinary retention issue for which a Al was placed and subsequently widening trial was given which patient failed- so Al replaced has some pinkish urine smiled hematuria - urology recommended to hold Plavix for 2 days and then start if hematuria resolves. Further management outpatient as per PCP. Health Concerns: As above. Plan of Treatment: As above.
--- NOTE | 2020-01-06 14:28 | MHC.CM.PN ---
CM met with pt along with database modeler. Pt is aware he will be discharged today, home with resumption of CAREER DEVELOPMENT SPECIALIST and new [facility] services. CM will contact [facility] to determine if they will be provding the custodial services or if it should be sent out to an agency. Pt reports his CAREER DEVELOPMENT SPECIALIST will provide transportation at DC and will bring in necessary personal items so he can get dressed. Pt was informed his new prescription was sent to his preferred pharmacy and will be ready for him to cotton picking machine operator after DC
--- NOTE | 2020-01-06 14:43 | MHC.CM.PN ---
ASHLEY spoke to Phylicia, JULI nurse at [facility] and informed her of pts DC and need for group home services. Phylicia indicated she would authorize services if arranged by CM. A referral had been made to [facility] prior and [facility] had offered services. CM messaged them to inquire when they would be able to initiate care as pt will be going with [facility] and is concerned. currently awaiting response.
[2020-01-06 15:07] VITALS: BP 133/70; PULSE 78; TEMP 36.1; O2SAT 96
--- NOTE | 2020-01-06 15:11 | MHC.CM.PN ---
PT ANXIOUS ABOUT [facility]. CM MADE NEW REFERRAL TO [facility] THEY ARE ABLE TO INITIATE SERVICE TOMORROW. REFERRAL TO [facility] CANCELLED. PT DISCHARGED HOME TODAY WITH RESUMPTION OF ASSISTANT SCIENTIST AND NEW [facility] REFERRAL
== END 2020-01-06 16:00 | disposition home health service (06) | DRG 872 ==
LOC: HO.ED 18:20 → HO.IMC 18:23 → HO.S3 01-03 16:00
PROVIDERS: Hospitalist; Physician Assistant Medical; Admitting Provider Nurse Practitioner Acute Care; PCP Internal Medicine Geriatric Medicine; Visit Provider Internal Medicine
DX: A41.9 Sepsis, unspecified organism (principal); N17.9 Acute kidney failure, unspecified; N13.6 Pyonephrosis; M19.90 Unspecified osteoarthritis, unspecified site; I12.9 Hypertensive chronic kidney disease with stage 1 through stage 4 chronic kidney disease, or unspecified chronic kidney disease; J45.909 Unspecified asthma, uncomplicated; E11.22 Type 2 diabetes mellitus with diabetic chronic kidney disease; N18.30 Chronic kidney disease, stage 3 unspecified; N47.2 Paraphimosis; R31.9 Hematuria, unspecified; R65.20 Severe sepsis without septic shock; B37.42 Candidal balanitis; N40.0 Benign prostatic hyperplasia without lower urinary tract symptoms; Z99.3 Dependence on wheelchair; Z79.4 Long term (current) use of insulin; Z79.02 Long term (current) use of antithrombotics/antiplatelets; Z79.51 Long term (current) use of inhaled steroids; Z79.899 Other long term (current) drug therapy
CPT/HCPCS: 36415; 74176; 76775; 76857; 80048; 81001; 82947; 83605; 85025; 87040; 87086; 87088; 87186; 96361; 96365; 99284; 99291; J0696; J1200

== ENCOUNTER → 2020-01-18 14:24 | Outpatient (BNVA) | payer MEDICARE, SELFPAY | PROVIDERS: PCP Internal Medicine Geriatric Medicine; Visit Provider Urology | DX: Z76.89 Persons encountering health services in other specified circumstances (principal) | CPT/HCPCS: 99212 ==

== ENCOUNTER → 2020-02-12 10:34 | Outpatient (BNVA) | payer MEDICARE, SELFPAY | PROVIDERS: PCP Internal Medicine Geriatric Medicine; Referring Provider Internal Medicine Geriatric Medicine; Visit Provider Internal Medicine Cardiovascular Disease | DX: R00.0 Tachycardia, unspecified (principal); R13.10 Dysphagia, unspecified; Z86.73 Personal history of transient ischemic attack (TIA), and cerebral infarction without residual deficits; Z79.02 Long term (current) use of antithrombotics/antiplatelets; Z79.82 Long term (current) use of aspirin | CPT/HCPCS: 93005; 99202 ==

== ENCOUNTER 2020-02-20 12:02 | Emergency (ER) | payer MEDICARE, SELFPAY ==
[2020-02-20 12:21] VITALS: BP 135/63; PULSE 93; RESP 18; TEMP 36.8; O2SAT 97; BMI 29.2
--- NOTE | 2020-02-20 14:01 | XR_ITS ---
EXAMINATION: XR CALCANEUS, LEFT CLINICAL INFORMATION: Foot ulcer. Assess for osteomyelitis. COMPARISON: Radiographs contralateral right foot 08/18/2018. TECHNIQUE: The left calcaneus is imaged in 2 views, lateral and Reyez. FINDINGS: There is no focal bony destructive process or periostitis. No gas tracking in the soft tissues. There is bulky plantar calcaneal spur and smaller posterior calcaneal spur. There are degenerative changes subtalar joint and extensive arthropathy midfoot. The retrocalcaneal recess is preserved. XR/XR calcaneus LT min 2V IMPRESSION: 1. No bony destructive process. No gas tracking in soft tissues. 2. Arthritic changes mid foot and subtalar joint. Posterior and plantar calcaneal spurs.
--- NOTE | 2020-02-20 14:32 | ED_ITS ---
HPI - General Adult General Chief complaint: Wound/Laceration Stated complaint: pressure ulcer Time Seen by Provider: 02/20/20 13:58 Source: patient Mode of arrival: ambulatory Limitations: language barrier History of Present Illness HPI narrative: 74 y/o male with multiple co-morbidities including DM, CKD, HTN, CVA w/ dysphagia, non-ambulatory at baseline who presentins with worsening left heel ulcer for the last 2-3 weeks. He states his SOFTWARE PROGRAM MANAGER at home told him that it was draining pus today, prompting ER evaluation. He denies fever, chills at home. He states his foot has been hurting more than usual. No subjective warmth or redness noted. Related Data Home Medications Medication Instructions Recorded Confirmed Lantus Solostar U-100 Insulin 45 unit SUBCUT DAILY 01/01/20 02/12/20 albuterol sulfate 2 puff PO Q4-6H PRN 01/01/20 02/12/20 amlodipine 5 mg PO DAILY 01/01/20 02/12/20 brimonidine 1 drp OPHTHALMIC (EYE) TID 01/01/20 02/12/20 clopidogrel 75 mg PO DAILY 01/01/20 02/12/20 fluticasone propionate 2 spray INTRANASAL DAILY 01/01/20 02/12/20 glimepiride 1 mg PO DAILY 01/01/20 02/12/20 atorvastatin 80 mg tablet 80 mg PO DAILY 02/12/20 02/12/20 Previous Rx's Medication Instructions Recorded cefuroxime axetil 250 mg PO BID #14 tab 01/05/20 clotrimazole 1 applic TOPICAL BID #15 g 01/06/20 finasteride 5 mg tablet 5 mg PO DAILY 90 Days #90 tab 01/18/20 cephalexin [Keflex] 500 mg PO QID #28 cap 02/20/20 Allergies Allergy/AdvReac Type Severity Reaction Status Date / Time No Known Allergies Allergy Unverified 12/14/19 18:22 [No Known Allergies*] Review of Systems Review of Systems: Constitutional: No Fever, No Chills ENT/Mouth: No sore throat, No Rhinorrhea, No Swallowing Difficulty Eyes: No Eye Pain, No Swelling, No Redness Cardiovascular: No Chest Pain, No SOB, No Orthopnea, No Edema Respiratory: No Cough, No Sputum, No Wheezing, No dyspnea Gastrointestinal: No Nausea, No Vomiting, No Diarrhea, No abdominal Pain Genitourinary: No Dysuria, No Urinary Frequency, No Hematuria Musculoskeletal: + joint pain, + Myalgias Skin: No Skin Lesions, No rash Neuro: No Weakness, No Numbness, No Dizziness, No Headache Psych: No Anxiety/Panic, No Depression Heme/Lymph: No Bruising, No Lymphadenopathy Endocrine: No Polyuria, No Polydipsia PMFSH Past Medical History Attestation statement: The following information was validated with the patient. Source: unable to obtain Medical History Arthritis Asthma Diabetes mellitus, type 2 Hiatal hernia Hyperlipidemia Hypertension Surgical History H/O hernia repair Social History Social History Household Members: None Housing: Apartment Alcohol intake: never Smoking Status: Never smoker Second Hand Smoke Exposure: No Use of substances other than those prescribed or required for medical reasons: No Advance Directives: No Advance Directives Information Provided: Yes service: No Current occupational status: disabled Physical Exam Vital Signs: Vital Signs: Last Vital Signs Temp 98.2 F 02/20/20 12:21 Pulse 70 02/20/20 15:12 Resp 18 02/20/20 15:12 BP 135/63 02/20/20 12:21 Pulse Ox 97 02/20/20 12:21 Body Mass Index 29.2 Appearance: Alert. Oriented X2. No acute distress. Eyes: Pupils equal, round and reactive to light. ENT: Pharynx normal. Neck: Normal inspection. Neck supple. CVS: Normal heart rate and rhythm. Pulses normal. Respiratory: No respiratory distress. Breath sounds normal. Abdomen: Soft and nontender. +BS x4 Skin: Skin warm and dry. Normal skin color. Normal skin turgor. No rashes. Extremities: left heal with 4cm blackened eschar to posterior aspect. mild serosanguinous drainage. 1+ DP pulse. Neuro: AAO x2. Confused, unable to move toes, has sensation Course Course Course Narrative: 74 y/o chronically ill male presenting with left heel ulcer that has been worsening over the last 2-3 weeks. Draining pus per SOFTWARE PROGRAM MANAGER, not appreaciated here. Will check XR to assess for developing osteo or gas. Labs and cultures pending. He is afebrile and hemodynamically stable. Reevaluation(s) Reevaluation #1: Lactic normal, no leukocytosis. Given appearance of the wound will cover empirically with Ancef. Spoke with hospitalist who will come and assess. Reevaluation #2: Dr. Alonzo came to evaluate the patient and is not recommending inpatient admission at this time. He is stable for discharge with plan to follow up with wound care. He has a timekeeper SOFTWARE PROGRAM MANAGER during the day hours and a son who helps take care of him. UA pending. Will treat ulcer with ppx keflex for possible evolving infection. Medical Decision Making Lab Data Result diagrams: 02/20/20 14:29 02/20/20 14:29 Labs: Lab Results 02/20/20 02/20/20 02/20/20 Range/Units 14:29 14:29 14:29 WBC 5.5 (4.8-10.8) X10*3/uL RBC 3.94 L (4.60-5.80) X10*6/uL Hgb 11.9 L (14.0-18.0) g/dl Hct 36.9 L (42-52) % MCV 93.7 (80-98) fL MCH 30.2 (27.0-33.0) pg MCHC 32.2 (31.0-36.0) g/dl RDW 13.8 (11.0-16.0) % Plt Count 290 D (160-400) X10*3/uL MPV 8.7 L (9.4-12.4) fL Immature Gran % (Auto) 0.4 (0.0-0.4) % Neut % (Auto) 73.6 H (45-73) % Lymph % (Auto) 15.2 L (20-40) % [place] % (Auto) 6.7 (2-11) % Eos % (Auto) 3.4 (0-4) % Baso % (Auto) 0.7 (0-2) % Lymph # (Auto) 0.8 L (1.2-4.9) X10*3/uL [place] # (Auto) 0.4 (0.1-1.2) X10*3/uL Eos # (Auto) 0.2 (0.0-0.4) X10*3/uL Baso # (Auto) 0.0 (0.0-0.2) X10*3/uL Abs Immat Gran (auto) 0.02 (0.00-0.03) X10*3/uL Absolute Neuts (auto) 4.1 (2.0-8.3) X10*3/uL Absolute Nucleated RBC 0.000 (0.0-0.012) X10*3/uL Nucleated RBC % (auto) 0.0 (0.0-0.2) /100WBC Sodium 139 (135-145) mmol/L Potassium 4.1 (3.3-5.1) mmol/l Chloride 102 (96-108) mmol/L Carbon Dioxide 27 (22-29) mmol/L Anion Gap 14 (12-20) BUN 23 H (9-16) mg/dL Creatinine 1.23 (0.5-1.4) mg/dL Estim Creat Clear Calc 44.6 Estimated GFR 57 Random Glucose 159 H D (60-115) mg/dL Lactic Acid 0.7 (0.5-2.0) mmol/L Calcium 8.3 L D (8.4-10.2) mg/dL Magnesium 1.9 (1.6-2.6) mg/dL Critical Care Time Critical Care Time Critical Care Time: No Discharge Plan Discharge Clinical Impression: Diabetic foot ulcer Qualifiers: Diabetic foot ulcer location: heel Diabetes mellitus type: type 2 Laterality: left Non-pressure ulcer stage: unspecified non-pressure ulcer stage Qualified Code(s): E11.621 - Type 2 diabetes mellitus with foot ulcer Patient Disposition: Home, Self-Care Instructions: Foot Care for People with Diabetes (ED), Diabetic Foot Ulcers (ED) Additional Instructions: It is very important that you follow up with the Wound Clinic. If you develop worsening symptoms including drainage of pus, increased pain or fever or chills come back to the ER for further evaluation. Follow up with your primary care doctor this week. Prescriptions: New cephalexin [Keflex] 500 mg capsule 500 mg PO QID Qty: 28 RF: 0 No Action clopidogrel 75 mg tablet 75 mg PO DAILY RF: 0 Hold Instructions: Resume on 01/09/20. Hold Plavix until Wednesday, if patient still has hematuria discussed with PCP for further use. amlodipine 5 mg tablet 5 mg PO DAILY RF: 0 glimepiride 1 mg tablet 1 mg PO DAILY RF: 0 brimonidine 0.2 % drops 1 drp ophthalmic (eye) TID RF: 0 albuterol sulfate 90 mcg/actuation HFA aerosol inhaler 2 puff PO Q4-6H PRN (Reason: Shortness Of Breath Or Wheezing) RF: 0 fluticasone propionate 50 mcg/actuation spray,suspension 2 spray intranasal DAILY RF: 0 Lantus Solostar U-100 Insulin 100 unit/mL (3 mL) insulin pen 45 unit subcut DAILY RF: 0 cefuroxime axetil 250 mg tablet 250 mg PO BID Qty: 14 RF: 0 clotrimazole 1 % cream 1 applic topical BID Qty: 15 RF: 0 finasteride 5 mg tablet 5 mg PO DAILY 90 Days Qty: 90 RF: 0 atorvastatin 80 mg tablet 80 mg PO DAILY RF: 0 Referrals: [facility] [Provider Group] - 2 days Print Language: Thai
[2020-02-20 14:35] LABS: MANUAL DIFF FLAG NO
[2020-02-20 14:38] LABS: Basophils Percent Auto 0.7 % (0-2); Eosinophils Absolute Auto 0.2 X10*3/uL (0.0-0.4); Eosinophils Percent Auto 3.4 % (0-4); Hematocrit 36.9 % (42-52); Hemoglobin 11.9 g/dl (14.0-18.0); Imm Gran Abs Auto 0.02 X10*3/uL (0.00-0.03); Imm Gran Pct Auto 0.4 % (0.0-0.4); Lymphocytes Absolute Auto 0.8 X10*3/uL (1.2-4.9); Lymphocytes Percent Auto 15.2 % (20-40); Mean Corpuscular HGB Conc 32.2 g/dl (31.0-36.0); Mean Corpuscular Hemoglobin 30.2 pg (27.0-33.0); Mean Corpuscular Volume 93.7 fL (80-98); Mean Platelet Volume 8.7 fL (9.4-12.4); Monocytes Absolute Auto 0.4 X10*3/uL (0.1-1.2); Monocytes Percent Auto 6.7 % (2-11); Neutrophils Absolute Auto 4.1 X10*3/uL (2.0-8.3); Neutrophils Percent Auto 73.6 % (45-73); Platelet Count 290 X10*3/uL (160-400); Red Blood Count 3.94 X10*6/uL (4.60-5.80); Red Cell Distribution Width 13.8 % (11.0-16.0); White Blood Count 5.5 X10*3/uL (4.8-10.8)
[2020-02-20 15:01] LABS: Lactic Acid 0.7 mmol/L (0.5-2.0)
[2020-02-20 15:05] LABS: Anion Gap 14 (12-20); Blood Urea Nitrogen 23 mg/dL (9-16); Calcium 8.3 mg/dL (8.4-10.2); Carbon Dioxide 27 mmol/L (22-29); Chloride 102 mmol/L (96-108); Creatinine Clr Calc Pharmacy 44.6; Estimated Glomerular Filt Rate 57; Glucose Random 159 mg/dL (60-115); Magnesium 1.9 mg/dL (1.6-2.6); Potassium 4.1 mmol/l (3.3-5.1); Sodium 139 mmol/L (135-145)
[2020-02-20 15:12] VITALS: PULSE 70; RESP 18
--- NOTE | 2020-02-20 16:21 | P.EN_ITS ---
Event Note Date of Service: 02/20/20 Event Note: Asked to evaluate patient's LLE wound to see if he would benefit f rom IV antibiotics. Per ED provider reports, apparently was draining serosanguineous discharge earlier in the ED. No reported fevers at home. No reported acute pain. Pt's current visit vitals, labs and imaging studies reviewed. He does not have any fevers or leukocytosis. His XR of the heel does not have any evidence of OM / soft tissue gas tracking. On Exam the wound (L calcaneal region) appears chronic in nature with out any acute drainage identified. No surrounding cellulitic changes. At this time, I do not think he would benefit from IV antibiotics. Can consider PO antibiotics for a week to 10 days. I think what he needs the most is appropriate wound care.
[2020-02-20] MEDS: ceFAZolin Sodium/Dextrose,Iso 2 GM/50 ML PIGGYBACK IV (16:27)
[2020-02-20 17:29] LABS: Glucose Urine UA NEG (NEG); Leukocyte Esterase Urine 3+ (NEG); Nitrite Urine NEG (NEG); Urine Blood 2+ (NEG); Urine Ketones NEG (NEG); Urine Protein 1+ MG/DL (NEG-TRACE)
[2020-02-20 17:40] LABS: Appearance Urine CLOUDY; Color Urine YELLOW
[2020-02-20 17:56] LABS: Bacteria Urine 3+ /LPF; Squamous Epithelial Cell Urine 1+ /LPF; WBC Urine TNTC /HPF (0-4)
[2020-02-23 08:06] LABS: Glucose, Whole Blood 171 mg/dL (60-115)
== END 2020-02-20 18:16 | disposition home or self-care (01) ==
PROVIDERS: Physician Assistant; Emergency Provider Emergency Medicine Emergency Medical Services
DX: E11.621 Type 2 diabetes mellitus with foot ulcer (principal); M79.672 Pain in left foot; M79.671 Pain in right foot; I10 Essential (primary) hypertension; J45.909 Unspecified asthma, uncomplicated; Z79.899 Other long term (current) drug therapy
CPT/HCPCS: 36415; 73650; 80048; 81001; 82947; 83605; 83735; 85025; 87040; 87086; 87088; 87186; 96365; 99284; J0690

== ENCOUNTER 2020-02-26 12:54 | Outpatient (RCR) | payer MEDICARE, SELFPAY | END 2020-06-04 14:00 | disposition home or self-care (01) | LOC: HO.WCC 12:54 | PROVIDERS: Visit Provider Physician Assistant | DX: E10.621 Type 1 diabetes mellitus with foot ulcer (principal); L97.422 Non-pressure chronic ulcer of left heel and midfoot with fat layer exposed; L97.529 Non-pressure chronic ulcer of other part of left foot with unspecified severity; L97.519 Non-pressure chronic ulcer of other part of right foot with unspecified severity; L89.519 Pressure ulcer of right ankle, unspecified stage; L89.619 Pressure ulcer of right heel, unspecified stage; I70.244 Atherosclerosis of native arteries of left leg with ulceration of heel and midfoot; E10.51 Type 1 diabetes mellitus with diabetic peripheral angiopathy without gangrene; E10.622 Type 1 diabetes mellitus with other skin ulcer; E10.40 Type 1 diabetes mellitus with diabetic neuropathy, unspecified; E10.22 Type 1 diabetes mellitus with diabetic chronic kidney disease; I12.9 Hypertensive chronic kidney disease with stage 1 through stage 4 chronic kidney disease, or unspecified chronic kidney disease; N18.30 Chronic kidney disease, stage 3 unspecified | CPT/HCPCS: 11042; 11043; 11044; 87071; 87077; 87186; 87205; 97597; 99204; 99212; 99213; 99215 ==

== ENCOUNTER → 2020-02-27 13:03 | Outpatient (REF) | payer MEDICARE, SELFPAY ==
--- NOTE | 2020-02-27 13:08 | HM_ITS ---
TEST PERFORMED: Cardiac event monitoring. INDICATION: Cerebral infarction. REQUESTING PHYSICIAN: Dr. Ross. ENROLLMENT PERIOD: 03/15/2020 to 04/10/2020 - 26 days. FINDINGS: In the above monitoring period, the underlying rhythm was sinus. Resting rate was 98/min. There were no documented bradyarrhythmias or tachyarrhythmias noted during this time. There was 1 isolated PVC, but essentially otherwise unremarkable. There were also no patient activated symptoms during this time. CONCLUSION: Study shows underlying sinus only without any concerning arrhythmias apart from 1 isolated PVC during the entire period. Jose F Feliz MD HS/MODL / [id number]
== END ==
LOC: HO.CARD 13:03
PROVIDERS: Visit Provider Internal Medicine Cardiovascular Disease
DX: Z86.73 Personal history of transient ischemic attack (TIA), and cerebral infarction without residual deficits (principal)
CPT/HCPCS: 93270

== ENCOUNTER 2020-03-28 09:26 | Outpatient (REF) | payer MEDICARE, SELFPAY ==
--- NOTE | 2020-03-28 | US_ITS ---
EXAMINATION: COLOR-FLOW DUPLEX IMAGING OF THE UNILATERAL LEFT LOWER EXTREMITY ARTERIAL SYSTEM. VELOCITY MEASUREMENTS THROUGHOUT THE FEMORAL ARTERIES WITH ANKLE-BRACHIAL PERIPHERAL ARTERIAL TESTING. CLINICAL INFORMATION: This a 74-year-old male with a left leg ulcer. Peripheral arterial disease. Interventional Radiologist: Elias Schaeffer M.D., F.S.I.R., F.A.C.R. RIGHT FEMORAL RUNOFF VELOCITIES: The right ankle-brachial index measured 1.59. This may be elevated due to calcified arteries and difficulty with compression. LEFT FEMORAL RUNOFF VELOCITIES: The left common femoral artery measures 113 cm/s and biphasic. The right profunda femoral artery is 118 cm/s and is biphasic. Right proximal superficial femoral artery measures 77 cm/s and biphasic. Mid superficial femoral artery is 143 cm/s and biphasic. Distal right superficial femoral artery measures 93 cm/s and is triphasic. Right popliteal velocity measures 115 cm/s and is triphasic. The posterior tibial artery velocity measures 13 cm/s and was monophasic. A severe stenosis is demonstrated in the proximal peroneal artery. The left ankle brachial index is 0.88. US/US KRISTINA complete IMPRESSION: 1. There appears to be mild hemodynamically significant atherosclerotic disease in the distal left superficial femoral artery. Furthermore, there appears to be significant distal runoff tibial vessel disease in the left calf.
--- NOTE | 2020-03-28 | US_ITS ---
EXAMINATION: COLOR-FLOW DUPLEX IMAGING OF THE UNILATERAL LEFT LOWER EXTREMITY ARTERIAL SYSTEM. VELOCITY MEASUREMENTS THROUGHOUT THE FEMORAL ARTERIES WITH ANKLE-BRACHIAL PERIPHERAL ARTERIAL TESTING. CLINICAL INFORMATION: This a 74-year-old male with a left leg ulcer. Peripheral arterial disease. Interventional Radiologist: Elias Schaeffer M.D., F.S.I.R., F.A.C.R. RIGHT FEMORAL RUNOFF VELOCITIES: The right ankle-brachial index measured 1.59. This may be elevated due to calcified arteries and difficulty with compression. LEFT FEMORAL RUNOFF VELOCITIES: The left common femoral artery measures 113 cm/s and biphasic. The right profunda femoral artery is 118 cm/s and is biphasic. Right proximal superficial femoral artery measures 77 cm/s and biphasic. Mid superficial femoral artery is 143 cm/s and biphasic. Distal right superficial femoral artery measures 93 cm/s and is triphasic. Right popliteal velocity measures 115 cm/s and is triphasic. The posterior tibial artery velocity measures 13 cm/s and was monophasic. A severe stenosis is demonstrated in the proximal peroneal artery. The left ankle brachial index is 0.88. US/US arterial duplex LE LT IMPRESSION: 1. There appears to be mild hemodynamically significant atherosclerotic disease in the distal left superficial femoral artery. Furthermore, there appears to be significant distal runoff tibial vessel disease in the left calf.
== END 2020-03-28 09:27 | disposition home or self-care (01) ==
LOC: HO.US 09:26
PROVIDERS: Visit Provider Physician Assistant
DX: L89.620 Pressure ulcer of left heel, unstageable (principal); I69.354 Hemiplegia and hemiparesis following cerebral infarction affecting left non-dominant side; I70.202 Unspecified atherosclerosis of native arteries of extremities, left leg
CPT/HCPCS: 93923; 93926

== ENCOUNTER 2020-04-01 10:54 | Emergency (ER) | payer MEDICARE, SELFPAY ==
[2020-04-01 12:08] VITALS: BP 119/66; PULSE 91; RESP 16; TEMP 36.6; O2SAT 99; BMI 25.8
--- NOTE | 2020-04-01 12:09 | ED.GENADULT ---
HPI - General Adult General Chief complaint: Urogenital-Male Stated complaint: blood in urine,catheter pain Time Seen by Provider: 04/01/20 12:08 Related Data Home Medications Medication Instructions Recorded Confirmed Lantus Solostar U-100 Insulin 45 unit SUBCUT DAILY 01/01/20 02/12/20 albuterol sulfate 2 puff PO Q4-6H PRN 01/01/20 02/12/20 amlodipine 5 mg PO DAILY 01/01/20 02/12/20 brimonidine 1 drp OPHTHALMIC (EYE) TID 01/01/20 02/12/20 clopidogrel 75 mg PO DAILY 01/01/20 02/12/20 fluticasone propionate 2 spray INTRANASAL DAILY 01/01/20 02/12/20 glimepiride 1 mg PO DAILY 01/01/20 02/12/20 atorvastatin 80 mg tablet 80 mg PO DAILY 02/12/20 02/12/20 Previous Rx's Medication Instructions Recorded cefuroxime axetil 250 mg PO BID #14 tab 01/05/20 clotrimazole 1 applic TOPICAL BID #15 g 01/06/20 finasteride 5 mg tablet 5 mg PO DAILY 90 Days #90 tab 01/18/20 cephalexin [Keflex] 500 mg PO QID #28 cap 02/20/20 Allergies Allergy/AdvReac Type Severity Reaction Status Date / Time No Known Allergies Allergy Unverified 12/14/19 18:22 [No Known Allergies*] [facility] Past Medical History Medical History Arthritis Asthma Diabetes mellitus, type 2 Hiatal hernia Hyperlipidemia Hypertension Surgical History H/O hernia repair Social History Social History Household Members: None Housing: Apartment Alcohol intake: never Smoking Status: Never smoker Second Hand Smoke Exposure: No service: No Current occupational status: disabled Course Course Course Narrative: 1205-This is a rapid medical exam. 74 yo male with BPH with chronic al here with hematuria in al bag since last evening. He tells me he accidentally pulled on the al catheter and then noticed gross hematuria with no clots. He is on plavix. Will check labs, UA. Deferred HPI, ROS and PE to primary provider. Discharge Plan Discharge Prescriptions: No Action clopidogrel 75 mg tablet 75 mg PO DAILY RF: 0 Hold Instructions: Resume on 01/09/20. Hold Plavix until Wednesday, if patient still has hematuria discussed with PCP for further use. amlodipine 5 mg tablet 5 mg PO DAILY RF: 0 glimepiride 1 mg tablet 1 mg PO DAILY RF: 0 brimonidine 0.2 % drops 1 drp ophthalmic (eye) TID RF: 0 albuterol sulfate 90 mcg/actuation HFA aerosol inhaler 2 puff PO Q4-6H PRN (Reason: Shortness Of Breath Or Wheezing) RF: 0 fluticasone propionate 50 mcg/actuation spray,suspension 2 spray intranasal DAILY RF: 0 Lantus Solostar U-100 Insulin 100 unit/mL (3 mL) insulin pen 45 unit subcut DAILY RF: 0 cefuroxime axetil 250 mg tablet 250 mg PO BID Qty: 14 RF: 0 clotrimazole 1 % cream 1 applic topical BID Qty: 15 RF: 0 cephalexin [Keflex] 500 mg capsule 500 mg PO QID Qty: 28 RF: 0 finasteride 5 mg tablet 5 mg PO DAILY 90 Days Qty: 90 RF: 0 atorvastatin 80 mg tablet 80 mg PO DAILY RF: 0
[2020-04-01] MEDS: Lidocaine HCl 2 % Urojet 10 ML JEL.PF.APP TOPICAL (19:18)
--- NOTE | 2020-04-01 19:30 | PC.NURSE ---
PATIENT REFUSED LAB DRAW, OKAY WITH URINALYSIS BEING OBTAINED. PROVIDER AWARE.
--- NOTE | 2020-04-01 19:34 | ED.MALEGU ---
HPI - Male Genitourinary General Chief complaint: Urogenital-Male Stated complaint: blood in urine,catheter pain Time Seen by Provider: 04/01/20 12:08 Source: patient Mode of arrival: wheelchair Limitations: language barrier History of Present Illness HPI Narrative: 74-year-old male past medical history of dysphagia, history of CVA, chronic Gaytan catheterization, hypertension, and arthritis presents with 1 day of hematuria. He ran over his Gaytan catheter bag and had pain at the meatus as well as bleeding noted in his Gaytan catheter bag. Does not have any other complaints at this time. MD Complaint: other (Hematuria) Onset (ago): day(s) (1) Duration: constant Location: penis Severity: moderate Severity scale (1-10): 6 Quality: aching Relieving factors: none Exacerbating factors: movement Associated symptoms: Reports denies other symptoms Related Data Sexually active: No Home Medications Medication Instructions Recorded Confirmed Lantus Solostar U-100 Insulin 45 unit SUBCUT DAILY 01/01/20 02/12/20 albuterol sulfate 2 puff PO Q4-6H PRN 01/01/20 02/12/20 amlodipine 5 mg PO DAILY 01/01/20 02/12/20 brimonidine 1 drp OPHTHALMIC (EYE) TID 01/01/20 02/12/20 clopidogrel 75 mg PO DAILY 01/01/20 02/12/20 fluticasone propionate 2 spray INTRANASAL DAILY 01/01/20 02/12/20 glimepiride 1 mg PO DAILY 01/01/20 02/12/20 atorvastatin 80 mg tablet 80 mg PO DAILY 02/12/20 02/12/20 Previous Rx's Medication Instructions Recorded cefuroxime axetil 250 mg PO BID #14 tab 01/05/20 clotrimazole 1 applic TOPICAL BID #15 g 01/06/20 finasteride 5 mg tablet 5 mg PO DAILY 90 Days #90 tab 01/18/20 cephalexin [Keflex] 500 mg PO QID #28 cap 02/20/20 levofloxacin 750 mg PO DAILY 4 Days #4 tab 04/01/20 Allergies Allergy/AdvReac Type Severity Reaction Status Date / Time No Known Allergies Allergy Unverified 12/14/19 18:22 [No Known Allergies*] Review of Systems Review of Systems: Constitutional: No Fever, No Chills ENT/Mouth: No Ear Pain, No Hoarseness, No sore throat Eyes: No Eye Pain, No Swelling, No Redness, No Foreign Body Cardiovascular: No Chest Pain, No SOB Respiratory: No Cough, No Dyspnea Gastrointestinal: No Nausea, No Vomiting, No Diarrhea, No abdominal Pain Genitourinary: Positive penile pain at the meatus, positive hematuria, No Dysuria Musculoskeletal: No joint pain, No Myalgias, No Joint Swelling Skin: No Skin lacerations, No rash Neuro: No Weakness, No Numbness, No Paresthesias, No Loss of Consciousness, No Dizziness, No Headache Psych: No Anxiety/Panic, No Depression Heme/Lymph: no easy bruising, no Lymphadenopathy Endocrine: No Polyuria, No Polydipsia Yes all other systems are reviewed and are negative [facility]LY [facility] Past Medical History Medical History Arthritis Asthma Candidiasis of penis Cholelithiasis Diabetes mellitus, type 2 Diverticulosis Hiatal hernia Hydronephrosis Hyperlipidemia Hypertension Sepsis Severe sepsis Wheelchair dependence Surgical History H/O hernia repair Social History Social History Household Members: None Housing: Apartment Alcohol intake: never Smoking Status: Never smoker Second Hand Smoke Exposure: No Advance Directives: No Advance Directives Information Provided: Yes service: No Current occupational status: disabled Physical Exam Vital Signs: Vital Signs: Last Vital Signs Temp 98 F 04/01/20 12:08 Pulse 91 04/01/20 12:08 Resp 16 04/01/20 12:08 BP 119/66 04/01/20 12:08 Pulse Ox 99 04/01/20 12:08 Body Mass Index 25.8 Appearance: Alert. Oriented X3. No acute distress. Eyes: Pupils equal, round and reactive to light. ENT: Pharynx normal. Neck: Normal inspection. Neck supple. CVS: Normal heart rate and rhythm. Pulses normal. Respiratory: No respiratory distress. Breath sounds normal. Abdomen: Soft and nontender. Skin: Skin warm and dry. Normal skin color. Normal skin turgor. Extremities: No lower extremity edema. Neuro: No motor deficit. No sensory deficit. Course Course Course Narrative: Patient presents with hematuria after running over his catheter bag with his electric wheelchair. Patient waiting in the waiting room for several hours and does not want labs to be drawn, asking to have the Gaytan bag removed. Multiple discussions between myself patient and RN utilizing diplomatic interpreter regarding best plan of care. Patient does realize that he must maintain the Gaytan and has accepted Gaytan catheter placement. This FLORIST DESIGNER replaced the Gaytan bag which had 600 mL of dark bloody urine with sediment. No difficulty with changing bag over, 16 English Gaytan replaced with a 16 English Gaytan. Urinalysis is pending. Urine is cloudy yellow with small wispy blood clots less than 2 mm in diameter. Urinalysis indicates UTI, plan of care is to treat with Levaquin and discharged home. Patient tolerated procedure and Gaytan catheter change without difficulty. diplomatic interpreter utilized for all correspondence. Google translate utilized for discharge instructions. MDM - Male Genitourinary MDM Narrative Medical decision making narrative: Mechanical trauma Differential Diagnosis Differential diagnosis: Likely urinary tract infection Medical Records Attestation: I reviewed the patient's medical records. Lab Data Attestation: I reviewed the patient's lab results. Labs: Lab Results 04/01/20 Range/Units 19:29 Urine Color YELLOW Urine Appearance CLEAR Urine pH 6.0 (5.0-8.0) Ur Specific [place] <= 1.005 (1.005-1.025) Urine Protein NEG (NEG-TRACE) MG/DL Urine Glucose (UA) NEG (NEG) MG/DL Urine Ketones NEG (NEG) MG/DL Urine Blood NEG (NEG) Urine Nitrite POS H (NEG) Ur Leukocyte Esterase NEG (NEG) Urine RBC 0 (0) /HPF Urine WBC 0 (0-4) /HPF Ur Squamous Epith Cells NONE /LPF Urine Bacteria TRACE /LPF Discharge Plan Discharge Clinical Impression: Acute UTI Hematuria Qualifiers: Hematuria type: gross Qualified Code(s): R31.0 - Gross hematuria Patient Disposition: Home, Self-Care Instructions: Gaytan Catheter Placement and Care (ED), Catheter-associated Urinary Tract Infection (ED) Additional Instructions: Se le evalu? la hematuria despu?s de atropellar poon bolsa de Gaytan urinaria con jalen silla de kelle. Reemplazamos poon bolsa, y el an?lisis de orina muestra jalen natalia?a cantidad de nitritos y rastros de bacterias. Debido a que tiene un cat?ter Gaytan, lo trataremos por infecci?n del tracto urinario. Por favor, tome Levaquin 750 mg jacquelin los pr?ximos 4 d?as. Le dimos poon primera dosis en el departamento de emergencias. Hilario por elegir sadie departamento de emergencias para la evaluaci?n. Por favor, clay un seguimiento con el m?dico de atenci?n primaria seg?n sea necesario. Regrese al servicio de urgencias para cualquier s?ntoma nuevo, preocupante o que empeore. You were evaluated for hematuria after running over your urinary Gaytan bag with a wheelchair. We replaced her bag, and urinalysis shows a small amount of nitrites and trace of bacteria. Because you have a Gaytan catheter we will treat you for urinary tract infection. Please take Levaquin 750 mg for the next 4 days. We gave you your 1st dose in the emergency department. Thank you for choosing this emergency department for evaluation. Please follow-up with primary care physician as needed. Return to the emergency department for any new, concerning, or worsening symptoms. Prescriptions: New levofloxacin 750 mg tablet 750 mg PO DAILY 4 Days Qty: 4 RF: 0 No Action clopidogrel 75 mg tablet 75 mg PO DAILY RF: 0 Hold Instructions: Resume on 01/09/20. Hold Plavix until Wednesday, if patient still has hematuria discussed with PCP for further use. amlodipine 5 mg tablet 5 mg PO DAILY RF: 0 glimepiride 1 mg tablet 1 mg PO DAILY RF: 0 brimonidine 0.2 % drops 1 drp ophthalmic (eye) TID RF: 0 albuterol sulfate 90 mcg/actuation HFA aerosol inhaler 2 puff PO Q4-6H PRN (Reason: Shortness Of Breath Or Wheezing) RF: 0 fluticasone propionate 50 mcg/actuation spray,suspension 2 spray intranasal DAILY RF: 0 Lantus Solostar U-100 Insulin 100 unit/mL (3 mL) insulin pen 45 unit subcut DAILY RF: 0 cefuroxime axetil 250 mg tablet 250 mg PO BID Qty: 14 RF: 0 clotrimazole 1 % cream 1 applic topical BID Qty: 15 RF: 0 cephalexin [Keflex] 500 mg capsule 500 mg PO QID Qty: 28 RF: 0 finasteride 5 mg tablet 5 mg PO DAILY 90 Days Qty: 90 RF: 0 atorvastatin 80 mg tablet 80 mg PO DAILY RF: 0 Interventions: ED Discharge Assessment Last Done: 04/01/20 20:24 Discharge Date/Time: 04/01/20 20:25 Print Language: Qatari
[2020-04-01 19:46] LABS: Glucose Urine UA NEG (NEG); Leukocyte Esterase Urine NEG (NEG); Nitrite Urine POS (NEG); Specific Gravity - Urine <= 1.005 (1.005-1.025); Urine Blood NEG (NEG); Urine Ketones NEG (NEG); Urine Protein NEG (NEG-TRACE)
[2020-04-01 19:47] LABS: Appearance Urine CLEAR; Color Urine YELLOW
[2020-04-01 19:53] LABS: Bacteria Urine TRACE /LPF; RBC Urine 0 /HPF (0); WBC Urine 0 /HPF (0-4)
[2020-04-01] MEDS: levoFLOXacin 750 MG TABLET PO (20:24)
== END 2020-04-01 20:25 | disposition home or self-care (01) ==
PROVIDERS: Nurse Practitioner Family; Emergency Provider Emergency Medicine; PCP Internal Medicine Geriatric Medicine
DX: T83.511A Infection and inflammatory reaction due to indwelling urethral catheter, initial encounter (principal); N39.0 Urinary tract infection, site not specified; R31.0 Gross hematuria; Z46.6 Encounter for fitting and adjustment of urinary device
CPT/HCPCS: 51702; 81001; 87086; 99283; 99284

== ENCOUNTER 2020-05-02 10:52 | Inpatient (IN) | payer MEDICARE, SELFPAY ==
[2020-05-02 11:05] VITALS: BP 106/47; PULSE 84; RESP 16; TEMP 36.9; O2SAT 98; BMI 26.6
--- NOTE | 2020-05-02 11:26 | XR_ITS ---
EXAMINATION: XR FOOT, LEFT XR FOOT, RIGHT CLINICAL INFORMATION: Worsening foot infection. Rule out osteomyelitis. COMPARISON: Right foot radiographs 08/18/2018 TECHNIQUE: 2 views of the left foot. 2 views of the right foot. FINDINGS: Left foot: Soft tissue swelling is seen diffusely. No acute fractures are identified. There is a destructive and distribution as the appearance of the midfoot/hindfoot with loss of joint spaces at the tarsometatarsal joints and prominent spurring. Crowding of the partial bones. No definite osseous erosion. Prominent heel spurs. Vascular calcifications. Right foot: No fracture or dislocation. Progressive abnormality of the right foot when compared to the prior study with disorganized appearance at the midfoot/hindfoot with heterogeneous appearance of the bones. Prominent heel spurs. No definite osseous erosions. Vascular calcifications. Mild soft tissue swelling. XR/XR foot RT 2V IMPRESSION: Abnormal appearance of both feet involving the midfoot/hindfoot, likely neuropathic in origin. No osseous erosions are seen, but cannot exclude infectious process. Soft tissue swelling is present.
--- NOTE | 2020-05-02 11:26 | XR_ITS ---
EXAMINATION: XR FOOT, LEFT XR FOOT, RIGHT CLINICAL INFORMATION: Worsening foot infection. Rule out osteomyelitis. COMPARISON: Right foot radiographs 08/18/2018 TECHNIQUE: 2 views of the left foot. 2 views of the right foot. FINDINGS: Left foot: Soft tissue swelling is seen diffusely. No acute fractures are identified. There is a destructive and distribution as the appearance of the midfoot/hindfoot with loss of joint spaces at the tarsometatarsal joints and prominent spurring. Crowding of the partial bones. No definite osseous erosion. Prominent heel spurs. Vascular calcifications. Right foot: No fracture or dislocation. Progressive abnormality of the right foot when compared to the prior study with disorganized appearance at the midfoot/hindfoot with heterogeneous appearance of the bones. Prominent heel spurs. No definite osseous erosions. Vascular calcifications. Mild soft tissue swelling. XR/XR foot LT 2V IMPRESSION: Abnormal appearance of both feet involving the midfoot/hindfoot, likely neuropathic in origin. No osseous erosions are seen, but cannot exclude infectious process. Soft tissue swelling is present.
--- NOTE | 2020-05-02 11:27 | PC.NURSE ---
Patient with 3 circular ulcers to right lateral foot, eschar covering ulcers. 4th circular ulcer to right lateral mallelous, covered w/ eschar. Left heel ulcer covered w/ eschar, slough, and foul smelling purluent drainage
--- NOTE | 2020-05-02 11:43 | ED_ITS ---
HPI - General Adult General Chief complaint: General Medical Stated complaint: L FOOT INFECTION, +COVID Time Seen by Provider: 05/02/20 10:59 Source: patient and EMS Mode of arrival: EMS Limitations: language barrier History of Present Illness HPI narrative: 74 y/o wheelchair bound male with extensive PMH including CVA, CKD, HTN, DM on insulin, dysphagia, artiritis, urinary retention with Gaytan, hx UTI, & chronic LE wounds who presents to the ED via EMS with reports of worsening wounds on his feet. He is a poor historian. History was obtained from Rene his [employer] & prior records. He was reportedly admitted at [facility] recently with COVID-19. He currently has no COVID symptoms. [facility] and Rene received a phone call from the doctor today to call the ambulance and bring him to the hospital for his LE wounds. MD complaint: worsening bilateral foot wounds Location: left, right and lower extremity Radiation: non-radiation Severity: moderate Related Data Home Medications Medication Instructions Recorded Confirmed Lantus Solostar U-100 Insulin 45 unit SUBCUT DAILY 01/01/20 02/12/20 albuterol sulfate 2 puff PO Q4-6H PRN 01/01/20 02/12/20 amlodipine 5 mg PO DAILY 01/01/20 02/12/20 brimonidine 1 drp OPHTHALMIC (EYE) TID 01/01/20 02/12/20 clopidogrel 75 mg PO DAILY 01/01/20 02/12/20 fluticasone propionate 2 spray INTRANASAL DAILY 01/01/20 02/12/20 glimepiride 1 mg PO DAILY 01/01/20 02/12/20 atorvastatin 80 mg tablet 80 mg PO DAILY 02/12/20 02/12/20 Previous Rx's Medication Instructions Recorded cefuroxime axetil 250 mg PO BID #14 tab 01/05/20 clotrimazole 1 applic TOPICAL BID #15 g 01/06/20 cephalexin [Keflex] 500 mg PO QID #28 cap 02/20/20 levofloxacin 750 mg PO DAILY 4 Days #4 tab 04/01/20 Allergies Allergy/AdvReac Type Severity Reaction Status Date / Time No Known Allergies Allergy Unverified 12/14/19 18:22 [No Known Allergies*] Review of Systems Review of Systems: Constitutional: No Fever, + Chills Cardiovascular: No Chest Pain, No SOB, No Orthopnea, No Edema Respiratory: No Cough, No Sputum, No Wheezing, No dyspnea Gastrointestinal: No Nausea, No Vomiting, No Diarrhea, No abdominal Pain Genitourinary: No Dysuria, No Urinary Frequency, No Hematuria Musculoskeletal: + joint pain, No Myalgias Skin: + Skin Lesions, No rash Neuro: No Weakness, No Numbness, No Dizziness, No Headache Psych: No Anxiety/Panic, No Depression Heme/Lymph: No Bruising, No Lymphadenopathy PMFSH Past Medical History Attestation statement: The following information was validated with the patient. Medical History Arthritis Asthma Candidiasis of penis Cholelithiasis Diabetes mellitus, type 2 Diverticulosis Hiatal hernia Hydronephrosis Hyperlipidemia Hypertension Sepsis Severe sepsis Wheelchair dependence Surgical History H/O hernia repair Social History Social History Household Members: None Housing: Apartment Alcohol intake: never Smoking Status: Never smoker Second Hand Smoke Exposure: No Advance Directives: No Advance Directives Information Provided: No service: No Current occupational status: disabled Physical Exam Vital Signs: Vital Signs: Last Vital Signs Temp 98.4 F 05/02/20 16:04 Pulse 86 05/02/20 16:04 Resp 18 05/02/20 16:04 BP 125/73 05/02/20 16:04 Pulse Ox 94 05/02/20 16:04 Body Mass Index 26.6 Appearance: Alert. Oriented X2. No acute distress. Eyes: Pupils equal, round and reactive to light. ENT: Pharynx normal. Neck: Normal inspection. Neck supple. CVS: Normal heart rate and rhythm. Pulses normal. Respiratory: No respiratory distress. Breath sounds normal. Abdomen: Soft and nontender. +BS x4 Skin: Skin warm and dry. Normal skin color. Normal skin turgor. No rashes. Extremities: right foot everted with 4 moderate sized pressure wounds with eschar, right foot with large lateral area with eschar with purulent, foul smelling drainage. 1+ dp pulses bilaterally, warm and well perfused. Neuro: Oriented X 2. Poor cooperative with examination given language barrier, can move all 4 extremities although bilateral LE are weak and painful due to wounds Course Course Course Narrative: 74 y/o male presenting with acute on chronic LE wounds. Left foot has purulent, foul-smelling discharge which is new. No fever at home per [facility] [employer]. Will get XR to assess for osteomyeliits, give empiric abx for such and plan for admission to the hospital. ?whether he had MRI or CT scan performed yesterday given [employer]'s report of wound provider calling today and telling him to go to the hospital. Reevaluation(s) Reevaluation #1: Lactic acid 2.5 - ordered for 1L IVF and vanco/zosyn. Remains hemodynamically stable and afebrile. Reevaluation #2: Lactic acid improved w/ 1L IVF. Plan for admission for IV abx, surgical consult and ?MRI to assess for osteo. TT Melody Neville at 230 PM for admission. Medical Decision Making Lab Data Result diagrams: 05/02/20 11:33 05/02/20 11:33 Labs: Lab Results 05/02/20 05/02/20 05/02/20 Range/Units 11:33 11:33 11:33 WBC 5.6 (4.8-10.8) X10*3/uL RBC 3.43 L (4.60-5.80) X10*6/uL Hgb 10.0 L (14.0-18.0) g/dl Hct 30.4 L (42-52) % MCV 88.6 (80-98) fL MCH 29.2 (27.0-33.0) pg MCHC 32.9 (31.0-36.0) g/dl RDW 14.6 (11.0-16.0) % Plt Count 334 (160-400) X10*3/uL MPV 9.0 L (9.4-12.4) fL Immature Gran % (Auto) 0.5 H (0.0-0.4) % Neut % (Auto) 82.1 H (45-73) % Lymph % (Auto) 10.0 L (20-40) % [place] % (Auto) 6.1 (2-11) % Eos % (Auto) 1.1 (0-4) % Baso % (Auto) 0.2 (0-2) % Lymph # (Auto) 0.6 L (1.2-4.9) X10*3/uL [place] # (Auto) 0.3 (0.1-1.2) X10*3/uL Eos # (Auto) 0.1 (0.0-0.4) X10*3/uL Baso # (Auto) 0.0 (0.0-0.2) X10*3/uL Abs Immat Gran (auto) 0.03 (0.00-0.03) X10*3/uL Absolute Neuts (auto) 4.6 (2.0-8.3) X10*3/uL Absolute Nucleated RBC 0.000 (0.0-0.012) X10*3/uL Nucleated RBC % (auto) 0.0 (0.0-0.2) /100WBC Smear Tech's Comments VERIFIED ESR (0-15) MM/HR Hold Blue Top SEE NOTE Sodium 136 (135-145) mmol/L Potassium 4.2 (3.3-5.1) mmol/L Chloride 97 (96-108) mmol/L Carbon Dioxide 28 (22-29) mmol/L Anion Gap 15 (12-20) BUN 16 (9-16) mg/dL Creatinine 1.02 (0.5-1.4) mg/dL Estim Creat Clear Calc 51.5 Estimated GFR > 60 Random Glucose 353 H* (60-115) mg/dL Lactic Acid (0.5-2.0) mmol/L Lactic Acid Fup @ 2Hr (0.5-2.0) mmol/L Calcium 7.3 L D (8.4-10.2) mg/dL Magnesium 1.5 L (1.6-2.6) mg/dL Total Bilirubin 0.5 (0.0-1.0) mg/dL Direct Bilirubin 0.3 (0.0-0.5) mg/dL AST 15 (5-37) U/L ALT 17 (0-40) U/L Alkaline Phosphatase 78 (39-117) U/L C-Reactive Protein 15.68 H (< or = 0.50) mg/dL Total Protein 5.9 L (6.5-8.0) g/dL Albumin 2.5 L (3.5-5.0) g/dL COVID-19 ([facility]) (Negative) COVID-19 Clin Com 05/02/20 05/02/20 05/02/20 Range/Units 11:53 11:53 13:58 WBC (4.8-10.8) X10*3/uL RBC (4.60-5.80) X10*6/uL Hgb (14.0-18.0) g/dl Hct (42-52) % MCV (80-98) fL MCH (27.0-33.0) pg MCHC (31.0-36.0) g/dl RDW (11.0-16.0) % Plt Count (160-400) X10*3/uL MPV (9.4-12.4) fL Immature Gran % (Auto) (0.0-0.4) % Neut % (Auto) (45-73) % Lymph % (Auto) (20-40) % [place] % (Auto) (2-11) % Eos % (Auto) (0-4) % Baso % (Auto) (0-2) % Lymph # (Auto) (1.2-4.9) X10*3/uL [place] # (Auto) (0.1-1.2) X10*3/uL Eos # (Auto) (0.0-0.4) X10*3/uL Baso # (Auto) (0.0-0.2) X10*3/uL Abs Immat Gran (auto) (0.00-0.03) X10*3/uL Absolute Neuts (auto) (2.0-8.3) X10*3/uL Absolute Nucleated RBC (0.0-0.012) X10*3/uL Nucleated RBC % (auto) (0.0-0.2) /100WBC Smear Tech's Comments ESR 94 H (0-15) MM/HR Hold Blue Top Sodium (135-145) mmol/L Potassium (3.3-5.1) mmol/L Chloride (96-108) mmol/L Carbon Dioxide (22-29) mmol/L Anion Gap (12-20) BUN (9-16) mg/dL Creatinine (0.5-1.4) mg/dL Estim Creat Clear Calc Estimated GFR Random Glucose (60-115) mg/dL Lactic Acid 2.3 H* (0.5-2.0) mmol/L Lactic Acid Fup @ 2Hr (0.5-2.0) mmol/L Calcium (8.4-10.2) mg/dL Magnesium (1.6-2.6) mg/dL Total Bilirubin (0.0-1.0) mg/dL Direct Bilirubin (0.0-0.5) mg/dL AST (5-37) U/L ALT (0-40) U/L Alkaline Phosphatase (39-117) U/L C-Reactive Protein (< or = 0.50) mg/dL Total Protein (6.5-8.0) g/dL Albumin (3.5-5.0) g/dL COVID-19 ([facility]) Positive A (Negative) COVID-19 Clin Com See Note 05/02/20 Range/Units 14:48 WBC (4.8-10.8) X10*3/uL RBC (4.60-5.80) X10*6/uL Hgb (14.0-18.0) g/dl Hct (42-52) % MCV (80-98) fL MCH (27.0-33.0) pg MCHC (31.0-36.0) g/dl RDW (11.0-16.0) % Plt Count (160-400) X10*3/uL MPV (9.4-12.4) fL Immature Gran % (Auto) (0.0-0.4) % Neut % (Auto) (45-73) % Lymph % (Auto) (20-40) % [place] % (Auto) (2-11) % Eos % (Auto) (0-4) % Baso % (Auto) (0-2) % Lymph # (Auto) (1.2-4.9) X10*3/uL [place] # (Auto) (0.1-1.2) X10*3/uL Eos # (Auto) (0.0-0.4) X10*3/uL Baso # (Auto) (0.0-0.2) X10*3/uL Abs Immat Gran (auto) (0.00-0.03) X10*3/uL Absolute Neuts (auto) (2.0-8.3) X10*3/uL Absolute Nucleated RBC (0.0-0.012) X10*3/uL Nucleated RBC % (auto) (0.0-0.2) /100WBC Smear Tech's Comments ESR (0-15) MM/HR Hold Blue Top Sodium (135-145) mmol/L Potassium (3.3-5.1) mmol/L Chloride (96-108) mmol/L Carbon Dioxide (22-29) mmol/L Anion Gap (12-20) BUN (9-16) mg/dL Creatinine (0.5-1.4) mg/dL Estim Creat Clear Calc Estimated GFR Random Glucose (60-115) mg/dL Lactic Acid (0.5-2.0) mmol/L Lactic Acid Fup @ 2Hr 1.0 (0.5-2.0) mmol/L Calcium (8.4-10.2) mg/dL Magnesium (1.6-2.6) mg/dL Total Bilirubin (0.0-1.0) mg/dL Direct Bilirubin (0.0-0.5) mg/dL AST (5-37) U/L ALT (0-40) U/L Alkaline Phosphatase (39-117) U/L C-Reactive Protein (< or = 0.50) mg/dL Total Protein (6.5-8.0) g/dL Albumin (3.5-5.0) g/dL COVID-19 ([facility]) (Negative) COVID-19 Clin Com Discharge Plan Discharge Clinical Impression: Open wnd foot-complicated Patient Disposition: Admitted As Inpatient Prescriptions: No Action clopidogrel 75 mg tablet 75 mg PO DAILY RF: 0 Hold Instructions: Resume on 01/09/20. Hold Plavix until Wednesday, if patient still has hematuria discussed with PCP for further use. amlodipine 5 mg tablet 5 mg PO DAILY RF: 0 glimepiride 1 mg tablet 1 mg PO DAILY RF: 0 brimonidine 0.2 % drops 1 drp ophthalmic (eye) TID RF: 0 albuterol sulfate 90 mcg/actuation HFA aerosol inhaler 2 puff PO Q4-6H PRN (Reason: Shortness Of Breath Or Wheezing) RF: 0 fluticasone propionate 50 mcg/actuation spray,suspension 2 spray intranasal DAILY RF: 0 Lantus Solmargaritaar U-100 Insulin 100 unit/mL (3 mL) insulin pen 45 unit subcut DAILY RF: 0 cefuroxime axetil 250 mg tablet 250 mg PO BID Qty: 14 RF: 0 clotrimazole 1 % cream 1 applic topical BID Qty: 15 RF: 0 cephalexin [Keflex] 500 mg capsule 500 mg PO QID Qty: 28 RF: 0 levofloxacin 750 mg tablet 750 mg PO DAILY 4 Days Qty: 4 RF: 0 atorvastatin 80 mg tablet 80 mg PO DAILY RF: 0
[2020-05-02 11:47] LABS: Basophils Percent Auto 0.2 % (0-2); Eosinophils Absolute Auto 0.1 X10*3/uL (0.0-0.4); Eosinophils Percent Auto 1.1 % (0-4); Hematocrit 30.4 % (42-52); Imm Gran Abs Auto 0.03 X10*3/uL (0.00-0.03); Imm Gran Pct Auto 0.5 % (0.0-0.4); Lymphocytes Absolute Auto 0.6 X10*3/uL (1.2-4.9); MANUAL DIFF FLAG SCAN; Mean Corpuscular HGB Conc 32.9 g/dl (31.0-36.0); Mean Corpuscular Hemoglobin 29.2 pg (27.0-33.0); Mean Corpuscular Volume 88.6 fL (80-98); Monocytes Absolute Auto 0.3 X10*3/uL (0.1-1.2); Monocytes Percent Auto 6.1 % (2-11); Neutrophils Absolute Auto 4.6 X10*3/uL (2.0-8.3); Neutrophils Percent Auto 82.1 % (45-73); Platelet Count 334 X10*3/uL (160-400); Red Blood Count 3.43 X10*6/uL (4.60-5.80); Red Cell Distribution Width 14.6 % (11.0-16.0); SCAN SMEAR FLAG 1; White Blood Count 5.6 X10*3/uL (4.8-10.8)
[2020-05-02 12:04] VITALS: BP 148/67; PULSE 90; RESP 16; TEMP 36.7; O2SAT 96
[2020-05-02] MEDS: Piperacillin Sodium/Tazobactam 3.375 GM in 0.9 % Sodium Chloride 50 ML IV ×2 (12:10→19:30)
[2020-05-02 12:16] LABS: SLIDE REVIEW VERIFIED
[2020-05-02 12:47] LABS: Alanine Aminotransferase 17 U/L (0-40); Albumin Level 2.5 g/dL (3.5-5.0); Alkaline Phosphatase 78 U/L (39-117); Anion Gap 15 (12-20); Aspartate Amino Transferase 15 U/L (5-37); Blood Urea Nitrogen 16 mg/dL (9-16); C Reactive Protein 15.68 mg/dL (< or = 0.50); Calcium 7.3 mg/dL (8.4-10.2); Carbon Dioxide 28 mmol/L (22-29); Chloride 97 mmol/L (96-108); Creatinine Clr Calc Pharmacy 51.5; Estimated Glomerular Filt Rate > 60; Glucose Random 353 mg/dL (60-115); Magnesium 1.5 mg/dL (1.6-2.6); Potassium 4.2 mmol/L (3.3-5.1); Sodium 136 mmol/L (135-145); Total Protein 5.9 g/dL (6.5-8.0)
[2020-05-02 12:47] LABS: Lactic Acid 2.3 mmol/L (0.5-2.0)
[2020-05-02 12:55] LABS: Bilirubin Direct 0.3 mg/dL (0.0-0.5); Bilirubin Total 0.5 mg/dL (0.0-1.0)
[2020-05-02 13:06] LABS: Erythrocyte Sedimentation Rate 94 MM/HR (0-15)
[2020-05-02] MEDS: 0.9 % Sodium Chloride 1,000 ML 999 ML IVCONT (13:12)
[2020-05-02] MEDS: vancomycin HCL 750 MG in 0.9 % Sodium Chloride 250 ML 265 MG IV (13:13)
[2020-05-02 14:02] LABS: Reflex Lactate? Lactic Acid Added
[2020-05-02 14:13] LABS: COVID-19 Test Positive (Negative)
[2020-05-02] MEDS: Magnesium Sulfate/H2O 2 GM/50 ML PIGGYBACK IV (14:37)
[2020-05-02 16:04] VITALS: BP 125/73; PULSE 86; RESP 18; TEMP 36.9; O2SAT 94
--- NOTE | 2020-05-02 17:05 | PM.EVENT ---
Event Note Date of Service: 05/02/20 Event Note: Patient seen and examined independently and was present during yanez portion of E/M service. Agree with midlevel's history, physical, assessment, and plan. 74M sent for infected chronic left heel ulcer offloading, wound care, empiric antibiotics covid seems to have recovered can keep isolated for now
--- NOTE | 2020-05-02 18:37 | PM.IMHP ---
History of Present Illness Date of Service: 05/02/20 Chief Complaint: Foot wound 74 year old man presenting with worsening diabetic foot wound. He was seen yesterday at the wound clinic and then called today and told to go to the ED. He was recently at [facility] due to Covid. Today he has no covid symptoms. He has had foot wounds and is being treated at the wound clinic. Blood sugar known with to be elevated at 353, initial lactic acid 2.3 with repeat of 1.0. Urinalysis showed positive UTI however patient does have Gaytan catheter. COVID-19 positive still from previous COVID test at [facility]. He had no leukocytosis or fever. He was given vancomycin and zosyn. He will be admitted for management of diabetic foot wound. Review of Systems Review of Systems: Denies any recent fever chills or decrease in appetite respiratory denies any shortness of breath Cardio no chest pain gastrointestinal denies any dysphagia abdominal pain nausea vomiting or diarrhea genitourinary denies any dysuria frequency or hematuria musculoskeletal denies any joint pain or swelling neuropsych denies any weakness or seizures all other systems reviewed are negative [facility] Medical History Arthritis Asthma Candidiasis of penis Cholelithiasis Diabetes mellitus, type 2 Diverticulosis Hiatal hernia Hydronephrosis Hyperlipidemia Hypertension Sepsis Severe sepsis Wheelchair dependence Surgical History H/O hernia repair Social History Household Members: None Housing: Apartment Alcohol intake: never Smoking Status: Never smoker Second Hand Smoke Exposure: No Advance Directives: No Advance Directives Information Provided: No service: No Current occupational status: disabled Meds Allergies Allergy/AdvReac Type Severity Reaction Status Date / Time No Known Allergies Allergy Unverified 12/14/19 18:22 [No Known Allergies*] Home Medications Medication Instructions Recorded Confirmed Type Lantus Solostar U-100 Insulin 35 unit SUBCUT BEDTIME 01/01/20 05/02/20 History albuterol sulfate 2 puff PO Q4-6H PRN 01/01/20 05/02/20 History amlodipine 5 mg PO DAILY 01/01/20 05/02/20 History clopidogrel 75 mg PO DAILY 01/01/20 05/02/20 History glimepiride 1 mg PO DAILY 01/01/20 05/02/20 History atorvastatin 80 mg tablet 80 mg PO DAILY 02/12/20 05/02/20 History aspirin 81 mg PO DAILY 05/02/20 05/02/20 History brimonidine 1 drp OPHTHALMIC (EYE) TID 05/02/20 05/02/20 History finasteride 5 mg PO DAILY 05/02/20 05/02/20 History fluticasone propionate [Flonase] 2 spray INTRANASAL DAILY 05/02/20 05/02/20 History melatonin 3 mg PO BEDTIME 05/02/20 05/02/20 History multivitamin [Daily-Casa] 1 tab PO DAILY 05/02/20 05/02/20 History sulfamethoxazole-trimethoprim 1 tab PO Q12H 05/02/20 05/02/20 History [SMZ-TMP DS] tamsulosin 0.4 mg PO BEDTIME 05/02/20 05/02/20 History Physical Exam Vital Signs and Narrative: Vital Signs: Last Vital Signs Temp 98.4 F 05/02/20 16:04 Pulse 86 05/02/20 16:04 Resp 18 05/02/20 16:04 BP 125/73 05/02/20 16:04 Pulse Ox 94 05/02/20 16:04 Body Mass Index 26.6 Appearing in no acute distress head is normocephalic atraumatic eyes pupils are PERRLA sclera is anicteric mouth throat mucous membranes are intact and moist neck is supple no lymphadenopathy, no JVD noted lung sounds Normal expansion heart regular rate rhythm bowel sounds nontender neuro patient is alert x3, no focal deficit Left foot above Right foot above Results Labs CBC and Chem 7: 05/02/20 11:33 05/02/20 11:33 Labs: Laboratory Results - last 24 hr 05/02/20 05/02/20 05/02/20 11:33 11:33 11:33 MCV 88.6 MCH 29.2 MCHC 32.9 RDW 14.6 Plt Count 334 MPV 9.0 L Immature Gran % (Auto) 0.5 H Neut % (Auto) 82.1 H Lymph % (Auto) 10.[address] [place] % (Auto) 6.1 Eos % (Auto) 1.1 Baso % (Auto) 0.2 Lymph # (Auto) 0.[address] [place] # (Auto) 0.3 Eos # (Auto) 0.1 Baso # (Auto) 0.0 Abs Immat Gran (auto) 0.03 Absolute Neuts (auto) 4.6 Absolute Nucleated RBC 0.000 Nucleated RBC % (auto) 0.0 Smear Tech's Comments VERIFIED ESR Hold Blue Top SEE NOTE Anion Gap 15 Estim Creat Clear Calc 51.5 Estimated GFR > 60 Random Glucose 353 H* Lactic Acid Lactic Acid Fup @ 2Hr Calcium 7.3 L D Magnesium 1.5 L Total Bilirubin 0.5 Direct Bilirubin 0.3 AST 15 ALT 17 Alkaline Phosphatase 78 C-Reactive Protein 15.68 H Total Protein 5.9 L Albumin 2.5 L COVID-19 (OCT[facility]IO) COVID-[employer] 05/02/20 05/02/20 05/02/20 11:53 11:53 13:58 MCV MCH MCHC RDW Plt Count MPV Immature Gran % (Auto) Neut % (Auto) Lymph % (Auto) [place] % (Auto) Eos % (Auto) Baso % (Auto) Lymph # (Auto) [place] # (Auto) Eos # (Auto) Baso # (Auto) Abs Immat Gran (auto) Absolute Neuts (auto) Absolute Nucleated RBC Nucleated RBC % (auto) Smear Tech's Comments ESR 94 H Hold Blue Top Anion Gap Estim Creat Clear Calc Estimated GFR Random Glucose Lactic Acid 2.3 H* Lactic Acid Fup @ 2Hr Calcium Magnesium Total Bilirubin Direct Bilirubin AST ALT Alkaline Phosphatase C-Reactive Protein Total Protein Albumin COVID-19 (OCTAVIO) Positive A COVID-19 [employer] See Note 05/02/20 14:48 MCV MCH MCHC RDW Plt Count MPV Immature Gran % (Auto) Neut % (Auto) Lymph % (Auto) [place] % (Auto) Eos % (Auto) Baso % (Auto) Lymph # (Auto) [place] # (Auto) Eos # (Auto) Baso # (Auto) Abs Immat Gran (auto) Absolute Neuts (auto) Absolute Nucleated RBC Nucleated RBC % (auto) Smear Tech's Comments ESR Hold Blue Top Anion Gap Estim Creat Clear Calc Estimated GFR Random Glucose Lactic Acid Lactic Acid Fup @ 2Hr 1.0 Calcium Magnesium Total Bilirubin Direct Bilirubin AST ALT Alkaline Phosphatase C-Reactive Protein Total Protein Albumin COVID-19 (OCTAVIO) COVID-19 Clin Com Imaging Radiologist's Impressions: Impressions Foot X-Ray 05/02/20 11:26 IMPRESSION: Abnormal appearance of both feet involving the midfoot/hindfoot, likely neuropathic in origin. No osseous erosions are seen, but cannot exclude infectious process. Soft tissue swelling is present. Foot X-Ray 05/02/20 11:26 IMPRESSION: Abnormal appearance of both feet involving the midfoot/hindfoot, likely neuropathic in origin. No osseous erosions are seen, but cannot exclude infectious process. Soft tissue swelling is present. Assessment and Plan (1) Open wnd foot-complicated: Qualifiers: Encounter type: initial encounter Laterality: left Qualified Code(s): S91.302A - Unspecified open wound, left foot, initial encounter Status: Acute 74 year old man admitted with bilateral diabetic foot wounds Bilateral diabetic foot wounds. May need debridement. General surgery consultation. Antibiotics. Normocytic anemia. No signs of bleeding. Follow CBC. Lactic acidosis. Resolved. Diabetes. Sliding scale, ADA diet, continue lantus. HTN. Stable. Continue amlodipine. Covid 19. No symptoms. Isolation. Urinary retension. Gaytan catheter, continue tamsulosin, finasteride. DVT prophylaxis with Heparin. Discussed with Dr. Lin Full code
[2020-05-02 19:09] VITALS: BP 156/70; PULSE 84; RESP 18; TEMP 36.9; O2SAT 94
[2020-05-02 19:25] LABS: Appearance Urine CLOUDY; Color Urine YELLOW; Glucose Urine UA 250 MG/DL (NEG); Leukocyte Esterase Urine 2+ (NEG); Nitrite Urine NEG (NEG); PH 6.5 (5.0-8.0); Specific Gravity - Urine 1.015 (1.005-1.025); UACC Culture Trigger YES; Urine Blood 3+ (NEG); Urine Ketones NEG (NEG); Urine Protein 3+ MG/DL (NEG-TRACE)
[2020-05-02] MEDS: Heparin Sodium,Porcine 5,000 UNIT/ML VIAL 5000 UNIT SUBCUT (19:30)
[2020-05-02 19:31] LABS: Bacteria Urine 1+ /LPF; Squamous Epithelial Cell Urine 1+ /LPF; WBC Urine TNTC /HPF (0-4)
--- NOTE | 2020-05-02 21:00 | PC.NURSE ---
PT RESTING IN STRETCHER W/O COMPLAINTS. PT MEDICATED PER EMAR. PT ALERT AND [place]ESE SPEAKING, RESPIRATIONS EASY, N/L.. SKIN W/D. PT DENIES ANY PAIN/COMPLAINTS AT THIS TIME. WILL CONTINUE TO MONITOR PT.
[2020-05-02] MEDS: Insulin Glargine,Hum.rec.anlog 100 UNIT/ML 10 ML VIAL 35 UNIT SUBCUT (21:30)
[2020-05-02] MEDS: Tamsulosin HCL 0.4 MG CAPSULE PO (22:09)
[2020-05-02 22:24] LABS: Glucose, Whole Blood 231 mg/dL (60-115)
[2020-05-03] VITALS (7 sets, daily range): BP systolic 114–150; BP diastolic 42–70; PULSE 79–84; RESP 15–20; TEMP 36.7–37.1; O2SAT 94–96
--- NOTE | 2020-05-03 00:05 | PC.NURSE ---
PT SLEEPING, RESPIRATIONS EASY, N/L. WILL CONTINUE TO MONITOR PT.
[2020-05-03] MEDS: 0.9 % Sodium Chloride Flush 3 ML SYRINGE IVFLUSH ×3 (00:39→16:10)
[2020-05-03] MEDS: Piperacillin Sodium/Tazobactam 3.375 GM in 0.9 % Sodium Chloride 50 ML IV ×4 (01:44→19:14)
--- NOTE | 2020-05-03 03:19 | PC.NURSE ---
PT WAKES TO VERBAL STIMULI, RESPIRATIONS EASY, N/L. SKIN W/D. PT DENIES ANY COMPLAINTS.
[2020-05-03 06:31] LABS: MANUAL DIFF FLAG NO
[2020-05-03 06:32] LABS: Basophils Percent Auto 0.2 % (0-2); Eosinophils Absolute Auto 0.1 X10*3/uL (0.0-0.4); Eosinophils Percent Auto 1.6 % (0-4); Hematocrit 30.2 % (42-52); Hemoglobin 9.7 g/dl (14.0-18.0); Imm Gran Abs Auto 0.03 X10*3/uL (0.00-0.03); Imm Gran Pct Auto 0.6 % (0.0-0.4); Lymphocytes Absolute Auto 0.8 X10*3/uL (1.2-4.9); Lymphocytes Percent Auto 15.3 % (20-40); Mean Corpuscular HGB Conc 32.1 g/dl (31.0-36.0); Mean Corpuscular Hemoglobin 28.9 pg (27.0-33.0); Mean Corpuscular Volume 89.9 fL (80-98); Mean Platelet Volume 8.5 fL (9.4-12.4); Monocytes Absolute Auto 0.4 X10*3/uL (0.1-1.2); Monocytes Percent Auto 7.4 % (2-11); Neutrophils Absolute Auto 3.9 X10*3/uL (2.0-8.3); Neutrophils Percent Auto 74.9 % (45-73); Platelet Count 342 X10*3/uL (160-400); Red Blood Count 3.36 X10*6/uL (4.60-5.80); Red Cell Distribution Width 14.6 % (11.0-16.0); White Blood Count 5.2 X10*3/uL (4.8-10.8)
[2020-05-03 06:54] LABS: Anion Gap 12 (12-20); Blood Urea Nitrogen 12 mg/dL (9-16); Calcium 7.1 mg/dL (8.4-10.2); Carbon Dioxide 30 mmol/L (22-29); Chloride 103 mmol/L (96-108); Creatinine Clr Calc Pharmacy 60.4; Estimated Glomerular Filt Rate > 60; Glucose Random 147 mg/dL (60-115); Potassium 3.6 mmol/L (3.3-5.1); Sodium 141 mmol/L (135-145)
--- NOTE | 2020-05-03 07:12 | PC.NURSE ---
report to FRANCHESCA Gibbs
[2020-05-03] MEDS: Atorvastatin Calcium 80 MG TABLET PO (09:14)
[2020-05-03] MEDS: amLODIPine Besylate 5 MG TABLET PO (09:14)
[2020-05-03] MEDS: Aspirin Enteric Coated 81 MG TABLET.DR PO (09:18)
[2020-05-03] MEDS: Clopidogrel Bisulfate 75 MG TABLET PO (09:18)
[2020-05-03] MEDS: Finasteride 5 MG TABLET PO (09:18)
[2020-05-03] MEDS: Multivitamin TABLET 1 TAB PO (09:18)
[2020-05-03] MEDS: glipiZIDE 5 MG TABLET 2.5 MG PO (09:30)
--- NOTE | 2020-05-03 09:53 | PC.NURSE ---
pt states he does not use oxygen at home. He was on 2L here, o2 sat was 97%. O2 was turned off, his O2 sat is now 96%.
--- NOTE | 2020-05-03 10:05 | PM.CNGS ---
History of Present Illness Consult details Consult date: 05/03/20 Narrative: Daron Kimble is a 74-year-old male patient presenting with worsening heel ulcers on the left side and history of chronic lower extremity wounds [facility]. Patient has multiple medical problems including a recent diagnosis of COVID-19, CVA, chronic kidney disease, hypertension, diabetes mellitus on insulin. The patient is a poor historian and is able to tell us along the wounds have been present. Surgical consultation requested for possible debridement. He denies significant pain associated with the foot. Review of Systems Review of Systems: Yes Unobtainable due to mental condition PMFSH Past Medical History Medical History Arthritis Asthma Candidiasis of penis Cholelithiasis Diabetes mellitus, type 2 Diverticulosis Hiatal hernia Hydronephrosis Hyperlipidemia Hypertension Sepsis Severe sepsis Wheelchair dependence Surgical History Surgical History H/O hernia repair Social History Social History Household Members: None Housing: Apartment Alcohol intake: unknown Smoking Status: Never smoker Second Hand Smoke Exposure: No Use of substances other than those prescribed or required for medical reasons: Unknown Advance Directives: No Advance Directives Information Provided: No service: No Current occupational status: disabled Meds Allergies Allergy/AdvReac Type Severity Reaction Status Date / Time No Known Allergies Allergy Unverified 12/14/19 18:22 [No Known Allergies*] Home Medications Medication Instructions Recorded Confirmed Type Lantus Solostar U-100 Insulin 35 unit SUBCUT BEDTIME 01/01/20 05/02/20 History albuterol sulfate 2 puff PO Q4-6H PRN 01/01/20 05/02/20 History amlodipine 5 mg PO DAILY 01/01/20 05/02/20 History clopidogrel 75 mg PO DAILY 01/01/20 05/02/20 History glimepiride 1 mg PO DAILY 01/01/20 05/02/20 History atorvastatin 80 mg tablet 80 mg PO DAILY 02/12/20 05/02/20 History aspirin 81 mg PO DAILY 05/02/20 05/02/20 History brimonidine 1 drp OPHTHALMIC (EYE) TID 05/02/20 05/02/20 History finasteride 5 mg PO DAILY 05/02/20 05/02/20 History fluticasone propionate [Flonase] 2 spray INTRANASAL DAILY 05/02/20 05/02/20 History melatonin 3 mg PO BEDTIME 05/02/20 05/02/20 History multivitamin [Daily-Casa] 1 tab PO DAILY 05/02/20 05/02/20 History sulfamethoxazole-trimethoprim 1 tab PO Q12H 05/02/20 05/02/20 History [SMZ-TMP DS] tamsulosin 0.4 mg PO BEDTIME 05/02/20 05/02/20 History Physical Exam Vital Signs: Vital Signs: Last Vital Signs Temp 98.2 F 05/03/20 06:00 Pulse 84 05/03/20 09:14 Resp 20 05/03/20 06:00 BP 129/54 L 05/03/20 09:14 Pulse Ox 96 05/03/20 09:54 Body Mass Index 26.6 Const: Other: Elderly male in no acute distress Eyes: Sclerae: sclerae normal EOM: EOMs intact bilaterally Neck: Neck: Yes normal visual inspection and Yes no JVD Resp: Other: Breathing comfortably on room air, no shortness of breath GI: Other: Soft and nondistended, nontender Skin: Other: Warm and dry, no rash Extrem: Other: Left foot examination reveals necrotic skin at the healed and multiple small areas both above and below this. There is lifting of the necrotic skin with some purulent discharge. Surrounding skin is warm and dry with out erythema. Results Labs Result diagrams: 05/03/20 06:12 05/03/20 06:12 Labs: Abnormal lab results 05/02/20 05/02/20 05/02/20 Range/Units 11:33 11:33 11:53 RBC 3.43 L (4.60-5.80) X10*6/uL Hgb 10.0 L (14.0-18.0) g/dl Hct 30.4 L (42-52) % MPV 9.0 L (9.4-12.4) fL Immature Gran % (Auto) 0.5 H (0.0-0.4) % Neut % (Auto) 82.1 H (45-73) % Lymph % (Auto) 10.0 L (20-40) % Lymph # (Auto) 0.6 L (1.2-4.9) X10*3/uL ESR 94 H (0-15) MM/HR Carbon Dioxide (22-29) mmol/L POC Glucose (60-115) mg/dL Random Glucose 353 H* (60-115) mg/dL Lactic Acid (0.5-2.0) mmol/L Calcium 7.3 L D (8.4-10.2) mg/dL Magnesium 1.5 L (1.6-2.6) mg/dL C-Reactive Protein 15.68 H (< or = 0.50) mg/dL Total Protein 5.9 L (6.5-8.0) g/dL Albumin 2.5 L (3.5-5.0) g/dL Urine Protein (NEG-TRACE) MG/DL Urine Glucose (UA) (NEG) MG/DL Urine Blood (NEG) Ur Leukocyte Esterase (NEG) Urine RBC (0) /HPF Urine WBC (0-4) /HPF COVID-19 (OCTAVIO) (Negative) 05/02/20 05/02/20 05/02/20 Range/Units 11:53 13:58 19:09 RBC (4.60-5.80) X10*6/uL Hgb (14.0-18.0) g/dl Hct (42-52) % MPV (9.4-12.4) fL Immature Gran % (Auto) (0.0-0.4) % Neut % (Auto) (45-73) % Lymph % (Auto) (20-40) % Lymph # (Auto) (1.2-4.9) X10*3/uL ESR (0-15) MM/HR Carbon Dioxide (22-29) mmol/L POC Glucose (60-115) mg/dL Random Glucose (60-115) mg/dL Lactic Acid 2.3 H* (0.5-2.0) mmol/L Calcium (8.4-10.2) mg/dL Magnesium (1.6-2.6) mg/dL C-Reactive Protein (< or = 0.50) mg/dL Total Protein (6.5-8.0) g/dL Albumin (3.5-5.0) g/dL Urine Protein 3+ H (NEG-TRACE) MG/DL Urine Glucose (UA) 250 H (NEG) MG/DL Urine Blood 3+ H (NEG) Ur Leukocyte Esterase 2+ H (NEG) Urine RBC 5-9 H (0) /HPF Urine WBC TNTC H (0-4) /HPF COVID-19 (OCTAVIO) Positive A (Negative) 05/02/20 05/03/20 05/03/20 Range/Units 22:01 06:12 06:12 RBC 3.36 L (4.60-5.80) X10*6/uL Hgb 9.7 L (14.0-18.0) g/dl Hct 30.2 L (42-52) % MPV 8.5 L (9.4-12.4) fL Immature Gran % (Auto) 0.6 H (0.0-0.4) % Neut % (Auto) 74.9 H (45-73) % Lymph % (Auto) 15.3 L (20-40) % Lymph # (Auto) 0.8 L (1.2-4.9) X10*3/uL ESR (0-15) MM/HR Carbon Dioxide 30 H (22-29) mmol/L POC Glucose 231 H (60-115) mg/dL Random Glucose 147 H D (60-115) mg/dL Lactic Acid (0.5-2.0) mmol/L Calcium 7.1 L (8.4-10.2) mg/dL Magnesium (1.6-2.6) mg/dL C-Reactive Protein (< or = 0.50) mg/dL Total Protein (6.5-8.0) g/dL Albumin (3.5-5.0) g/dL Urine Protein (NEG-TRACE) MG/DL Urine Glucose (UA) (NEG) MG/DL Urine Blood (NEG) Ur Leukocyte Esterase (NEG) Urine RBC (0) /HPF Urine WBC (0-4) /HPF COVID-19 (OCTAVIO) (Negative) Short CBC 05/02/20 05/03/20 Range/Units 11:33 06:12 WBC 5.6 5.2 (4.8-10.8) X10*3/uL Hgb 10.0 L 9.7 L (14.0-18.0) g/dl Hct 30.4 L 30.2 L (42-52) % Plt Count 334 342 (160-400) X10*3/uL BMP 05/02/20 05/03/20 11:33 06:12 Sodium 136 141 Potassium 4.2 3.6 Chloride 97 103 Carbon Dioxide 28 30 H BUN 16 12 Creatinine 1.02 0.87 Calcium 7.3 L D 7.1 L Liver Function 05/02/20 Range/Units 11:33 Total Bilirubin 0.5 (0.0-1.0) mg/dL Direct Bilirubin 0.3 (0.0-0.5) mg/dL AST 15 (5-37) U/L ALT 17 (0-40) U/L Alkaline Phosphatase 78 (39-117) U/L Albumin 2.5 L (3.5-5.0) g/dL Urine 05/02/20 Range/Units 19:09 Urine Color YELLOW Urine Appearance CLOUDY Urine pH 6.5 (5.0-8.0) Ur Specific [place] 1.015 (1.005-1.025) Urine Protein 3+ H (NEG-TRACE) MG/DL Urine Glucose (UA) 250 H (NEG) MG/DL All other labs normal. 03/28/2020: US/US arterial duplex LE IMPRESSION: 1. There appears to be mild hemodynamically significant atherosclerotic disease in the distal left superficial femoral artery. Furthermore, there appears to be significant distal runoff tibial vessel disease in the left calf. Assessment and Plan (1) Open wnd foot-complicated: Qualifiers: Encounter type: initial encounter Laterality: left Qualified Code(s): S91.302A - Unspecified open wound, left foot, initial encounter Status: Acute 74-year-old male patient with large ulceration involving the left heel and foot with necrotic skin in need of debridement. This will be a very difficult wound to heal given its size and location. The previous ultrasound arterial duplex study of 03/28/2020 is noted with hemodynamically significant atherosclerosis identified in the left superficial femoral artery. It does not appear that he was evaluated by vascular surgery following the study. Suggest vascular surgery consultation with Dr. Anderson for evaluation of a possible endovascular stenting. Will follow along during his hospitalization.
[2020-05-03 12:09] LABS: Glucose, Whole Blood 163 mg/dL (60-115)
[2020-05-03] MEDS: Acetaminophen 325 MG TABLET 650 MG PO ×2 (13:01→19:16)
--- NOTE | 2020-05-03 13:22 | HO.PM.IMPN ---
Subjective Subjective Date of Service: 05/03/20 Interval History: no complaints Cardiovascular Cardiovascular: Reports no additional cardiovascular complaints Respiratory Respiratory: Reports no additional respiratory complaints Physical Exam Vital Signs: Vital Signs: Last Vital Signs Temp 98.2 F 05/03/20 06:00 Pulse 84 05/03/20 09:14 Resp 20 05/03/20 06:00 BP 129/54 L 05/03/20 09:14 Pulse Ox 96 05/03/20 09:54 Body Mass Index 26.6 Const: Other: Elderly male in no acute distress Eyes: Sclerae: sclerae normal EOM: EOMs intact bilaterally Neck: Neck: Yes normal visual inspection and Yes no JVD Resp: Other: Breathing comfortably on room air, no shortness of breath Cardio: Other: Elderly male in no acute distress GI: Other: Soft and nondistended, nontender Skin: Other: Warm and dry, no rash Extrem: Other: Left foot examination reveals necrotic skin at the healed and multiple small areas both above and below this. There is lifting of the necrotic skin with some purulent discharge. Surrounding skin is warm and dry with out erythema. Objective Data Current Medications Generic Name Dose Route Start Last Admin Trade Name Freq PRN Reason Stop Dose Admin Acetaminophen 650 mg 05/02/20 19:11 05/03/20 13:01 Acetaminophen 325 Mg Tablet PO 650 mg Q6H PRN Administration Pain, Mild (Pain Scale 1-3) Albuterol Sulfate 2 puff 05/02/20 19:11 Albuterol Sulfate 90 Mcg 8 Gm Inhaler INHALE Q4H PRN Shortness Of Breath Or Wheezing Amlodipine Besylate 5 mg 05/03/20 09:00 05/03/20 09:14 Amlodipine Besylate 5 Mg Tablet PO 5 mg DAILY [facility] Administration Protocol Aspirin 81 mg 05/03/20 09:00 05/03/20 09:18 Aspirin Enteric Coated 81 Mg Tablet. PO 81 mg DAILY RENETTA Administration Atorvastatin Calcium 80 mg 05/03/20 09:00 05/03/20 09:14 Atorvastatin Calcium 80 Mg Tablet PO 80 mg DAILY [facility] Administration Brimonidine Tartrate 1 drop 05/02/20 21:00 05/03/20 09:30 Brimonidine Tartrate 0.2% Oph 5 Ml Bottle EYE-BOTH Not Given TID [facility] Clopidogrel Bisulfate 75 mg 05/03/20 09:00 05/03/20 09:18 Clopidogrel Bisulfate 75 Mg Tablet PO 75 mg DAILY [facility]TA Administration Finasteride 5 mg 05/03/20 09:00 05/03/20 09:18 Finasteride 5 Mg Tablet PO 5 mg DAILY [facility] Administration Fluticasone Propionate 2 spray 05/03/20 09:00 05/03/20 09:18 Fluticasone Propionate Nasal 16 Gm [place] NOSTRIL-B Not Given DAILY [facility] Glipizide 2.5 mg 05/03/20 09:00 05/03/20 09:30 Glipizide 5 Mg Tablet PO 2.5 mg DAILY [facility] Administration Heparin Sodium (Porcine) 5,000 unit 05/02/20 19:30 05/03/20 07:33 Heparin Sodium,Porcine 5,000 Unit/Ml Vial SUBCUT Not Given Q12H [facility] Vancomycin HCl 750 mg/ 275 mls @ 183.333 mls/hr 05/03/20 13:00 Vancomycin HCl 500 mg/ Sodium IV Chloride Q24H [facility] Piperacillin Sod/Tazobactam 50 mls @ 100 mls/hr 05/02/20 19:15 05/03/20 07:02 Sod 3.375 gm/ Sodium Chloride IV Infused Q6H [facility] Infusion Insulin Glargine 35 unit 05/02/20 21:00 05/02/20 21:30 Insulin Glargine,Hum.Rec.Anlog 100 Unit/Ml 10 Ml Vial SUBCUT 35 unit BEDTIME [facility] Administration Multivitamins/Vitamin C 1 tab 05/03/20 09:00 05/03/20 09:18 Multivitamin Tablet PO 1 tab DAILY [facility] Administration Ondansetron HCl 4 mg 05/02/20 19:11 Ondansetron Hcl 4 Mg/2 Ml Vial IVPUSH Q8H PRN Nausea and Vomiting Pharmacy Consult 1 each 05/02/20 19:14 Consult Rx Vancomycin Dosing MISCELLANE DAILY PRN Consult order Sodium Chloride 3 ml 05/03/20 00:00 05/03/20 07:29 0.9 % Sodium Chloride Flush 3 Ml Syringe IVFLUSH 3 ml QSHIFT [facility] Administration Tamsulosin HCl 0.4 mg 05/02/20 21:00 05/02/20 22:09 Tamsulosin Hcl 0.4 Mg Capsule PO 0.4 mg BEDTIME [facility] Administration Labs CBC & Chem 7: 05/03/20 06:12 05/03/20 06:12 Microbiology Microbiology Results: Microbiology 05/02/20 16:17 Ankle Left Gram Stain - Final 05/02/20 16:17 Ankle Left Routine Culture - Preliminary Gram negative keri 05/02/20 19:27 Urine clean catch - Clean Catch Midstream Urine Culture - Final Assessment and Plan (1) Open wnd foot-complicated: Status: Acute Assessment and Plan: 74 year old man admitted with bilateral diabetic foot wounds Bilateral diabetic foot wounds empiric antiobitcs surgery appreciated, will get vascular eval Normocytic anemia. No signs of bleeding. Follow CBC. Lactic acidosis. Resolved. Diabetes. Sliding scale, ADA diet, continue lantus. HTN. amlodipine. Covid 19. No symptoms. Isolation. Urinary retension. Gaytan catheter, continue tamsulosin, finasteride. DVT prophylaxis with Heparin.
[2020-05-03 16:41] LABS: Glucose, Whole Blood 196 mg/dL (60-115)
[2020-05-03] MEDS: Heparin Sodium,Porcine 5,000 UNIT/ML VIAL 5000 UNIT SUBCUT (19:13)
--- NOTE | 2020-05-03 19:21 | PC.NURSE ---
patient a&0, medicated per order, vss, al cath patient/draining, will continue to monitor.
--- NOTE | 2020-05-03 19:23 | PC.NURSE ---
attempted to call floor to give report, RN will call us back as she is with a patient with low o2 sats.
--- NOTE | 2020-05-03 19:34 | PC.NURSE ---
report called to floor
[2020-05-03 20:52] LABS: Glucose, Whole Blood 204 mg/dL (60-115)
[2020-05-03] MEDS: Insulin Lispro 100 UNIT/ML 3 ML VIAL SUBCUT (21:37)
[2020-05-03] MEDS: Insulin Glargine,Hum.rec.anlog 100 UNIT/ML 10 ML VIAL 35 UNIT SUBCUT (21:38)
[2020-05-03] MEDS: Tamsulosin HCL 0.4 MG CAPSULE PO (21:39)
[2020-05-04] VITALS (8 sets, daily range): BP systolic 112–147; BP diastolic 54–66; PULSE 75–95; RESP 18; TEMP 36.1–36.8; O2SAT 2–100
[2020-05-04] MEDS: Piperacillin Sodium/Tazobactam 3.375 GM in 0.9 % Sodium Chloride 50 ML IV ×4 (00:38→21:03)
[2020-05-04] MEDS: 0.9 % Sodium Chloride Flush 3 ML SYRINGE IVFLUSH ×3 (00:38→18:19)
[2020-05-04 06:27] LABS: MANUAL DIFF FLAG NO
[2020-05-04 06:35] LABS: Basophils Percent Auto 0.5 % (0-2); Eosinophils Absolute Auto 0.1 X10*3/uL (0.0-0.4); Eosinophils Percent Auto 2.1 % (0-4); Hematocrit 31.8 % (42-52); Hemoglobin 10.2 g/dl (14.0-18.0); Imm Gran Abs Auto 0.02 X10*3/uL (0.00-0.03); Imm Gran Pct Auto 0.4 % (0.0-0.4); Lymphocytes Percent Auto 16.9 % (20-40); Mean Corpuscular HGB Conc 32.1 g/dl (31.0-36.0); Mean Corpuscular Hemoglobin 28.7 pg (27.0-33.0); Mean Corpuscular Volume 89.6 fL (80-98); Mean Platelet Volume 8.6 fL (9.4-12.4); Monocytes Absolute Auto 0.4 X10*3/uL (0.1-1.2); Monocytes Percent Auto 7.3 % (2-11); Neutrophils Absolute Auto 4.1 X10*3/uL (2.0-8.3); Neutrophils Percent Auto 72.8 % (45-73); Platelet Count 408 X10*3/uL (160-400); Red Blood Count 3.55 X10*6/uL (4.60-5.80); Red Cell Distribution Width 14.5 % (11.0-16.0); White Blood Count 5.6 X10*3/uL (4.8-10.8)
[2020-05-04 06:54] LABS: Anion Gap 12 (12-20); Blood Urea Nitrogen 15 mg/dL (9-16); Calcium 7.1 mg/dL (8.4-10.2); Carbon Dioxide 28 mmol/L (22-29); Chloride 102 mmol/L (96-108); Creatinine Clr Calc Pharmacy 67.4; Estimated Glomerular Filt Rate > 60; Glucose Fasting 61 mg/dL (60-99); Potassium 3.9 mmol/L (3.3-5.1); Sodium 138 mmol/L (135-145)
[2020-05-04 07:22] LABS: Glucose, Whole Blood 65 mg/dL (60-115)
[2020-05-04] MEDS: Atorvastatin Calcium 80 MG TABLET PO (10:19)
[2020-05-04] MEDS: glipiZIDE 5 MG TABLET 2.5 MG PO (10:19)
[2020-05-04] MEDS: Multivitamin TABLET 1 TAB PO (10:19)
[2020-05-04] MEDS: Finasteride 5 MG TABLET PO (10:19)
[2020-05-04] MEDS: Heparin Sodium,Porcine 5,000 UNIT/ML VIAL 5000 UNIT SUBCUT ×2 (10:20→21:05)
[2020-05-04] MEDS: Clopidogrel Bisulfate 75 MG TABLET PO (10:20)
[2020-05-04] MEDS: Aspirin Enteric Coated 81 MG TABLET.DR PO (10:21)
[2020-05-04] MEDS: amLODIPine Besylate 5 MG TABLET PO (10:25)
--- NOTE | 2020-05-04 10:29 | P.PNIM_ITS ---
Subjective Subjective Date of Service: 05/04/20 Interval History: no coplaints Cardiovascular Cardiovascular: Reports no additional cardiovascular complaints Gastrointestinal Gastrointestinal: Reports no additional gastrointestinal complaints Physical Exam Vital Signs: Vital Signs: Last Vital Signs Temp 97.0 F 05/04/20 08:00 Pulse 95 05/04/20 08:00 Resp 18 05/04/20 08:00 BP 147/66 H 05/04/20 08:00 Pulse Ox 2 L 05/04/20 08:00 Body Mass Index 26.6 General: AO X 3, no acute distress Resp: CTA bilateral CVS: S1,S2,RRR GI: soft, non tender, non distended Neuro: motor grossly intact Psych: appropriate affect skinL: left heal ulcers Objective Data Current Medications Generic Name Dose Route Start Last Admin Trade Name Freq PRN Reason Stop Dose Admin Acetaminophen 650 mg 05/02/20 19:11 05/03/20 19:16 Acetaminophen 325 Mg Tablet PO 650 mg Q6H PRN Administration Pain, Mild (Pain Scale 1-3) Albuterol Sulfate 2 puff 05/02/20 19:11 Albuterol Sulfate 90 Mcg 8 Gm Inhaler INHALE Q4H PRN Shortness Of Breath Or Wheezing Amlodipine Besylate 5 mg 05/03/20 09:00 05/03/20 09:14 Amlodipine Besylate 5 Mg Tablet PO 5 mg DAILY RENETTA Administration Protocol Aspirin 81 mg 05/03/20 09:00 05/04/20 10:21 Aspirin Enteric Coated 81 Mg Tablet.Dr PO 81 mg DAILY RENETTA Administration Atorvastatin Calcium 80 mg 05/03/20 09:00 05/04/20 10:19 Atorvastatin Calcium 80 Mg Tablet PO 80 mg DAILY RENETTA Administration Brimonidine Tartrate 1 drop 05/02/20 21:00 05/03/20 21:40 Brimonidine Tartrate 0.2% Oph 5 Ml Bottle EYE-BOTH Not Given TID R[facility]ETTA Clopidogrel Bisulfate 75 mg 05/03/20 09:00 05/04/20 10:20 Clopidogrel Bisulfate 75 Mg Tablet PO 75 mg DAILY [facility] Administration Finasteride 5 mg 05/03/20 09:00 05/04/20 10:19 Finasteride 5 Mg Tablet PO 5 mg DAILY [facility] Administration Fluticasone Propionate 2 spray 05/03/20 09:00 05/03/20 09:18 Fluticasone Propionate Nasal 16 Gm [place] NOSTRIL-B Not Given DAILY R[facility]TA Glipizide 2.5 mg 05/03/20 09:00 05/04/20 10:19 Glipizide 5 Mg Tablet PO 2.5 mg DAILY R[facility]TA Administration Heparin Sodium (Porcine) 5,000 unit 05/02/20 19:30 05/04/20 10:20 Heparin Sodium,Porcine 5,000 Unit/Ml Vial SUBCUT 5,000 unit Q12H [facility] Administration Vancomycin HCl 750 mg/ 275 mls @ 183.333 mls/hr 05/03/20 13:00 05/03/20 16:26 Vancomycin HCl 500 mg/ Sodium IV Infused Chloride Q24H [facility] Infusion Piperacillin Sod/Tazobactam 50 mls @ 100 mls/hr 05/02/20 19:15 05/04/20 10:19 Sod 3.375 gm/ Sodium Chloride IV 100 mls/hr Q6H [facility] Administration Insulin Glargine 35 unit 05/02/20 21:00 05/03/20 21:38 Insulin Glargine,Hum.Rec.Anlog 100 Unit/Ml 10 Ml Vial SUBCUT 35 unit BEDTIME ON [facility] OF [facility] Administration Insulin Human Lispro 0 unit 05/03/20 20:13 05/04/20 10:22 Insulin Lispro 100 Unit/Ml 3 Ml Vial SUBCUT Not Given QIDACHS ON LICENSE OF [facility] Protocol Multivitamins/Vitamin C 1 tab 05/03/20 09:00 05/04/20 10:19 Multivitamin Tablet PO 1 tab DAILY [facility] OF [facility] Administration Ondansetron HCl 4 mg 05/02/20 19:11 Ondansetron Hcl 4 Mg/2 Ml Vial IVPUSH Q8H PRN Nausea and Vomiting Pharmacy Consult 1 each 05/02/20 19:14 Consult Rx Vancomycin Dosing MISCELLANE DAILY PRN Consult order Sodium Chloride 3 ml 05/03/20 00:00 05/04/20 10:21 0.9 % Sodium Chloride Flush 3 Ml Syringe IVFLUSH 3 ml QSHIFT ON [facility] OF [facility] Administration Tamsulosin HCl 0.4 mg 05/02/20 21:00 05/03/20 21:39 Tamsulosin Hcl 0.4 Mg Capsule PO 0.4 mg BEDTIME [facility] Administration Labs CBC & Chem 7: 05/04/20 05:56 05/04/20 05:56 Microbiology Microbiology Results: Microbiology 05/02/20 16:17 Ankle Left Gram Stain - Final 05/02/20 16:17 Ankle Left Routine Culture - Final Escherichia coli 05/02/20 11:53 Blood - Venous Blood Culture - Preliminary 05/02/20 11:33 Blood - Venous Blood Culture - Preliminary No growth after 24 hours. 05/02/20 19:27 Urine clean catch - Clean Catch Midstream Urine Culture - Final Assessment and Plan (1) Open wnd foot-complicated: Status: Acute Assessment and Plan: 74 year old man admitted with bilateral diabetic foot wounds Bilateral diabetic foot wounds continue antiobitcs surgery appreciated, vascular to see GPC in 1/2 bottles - ?contaminantl DM insulin HTN amlodipine covid asymptomatic, no hypoxia urinatry retention al, flomax, finasteride
[2020-05-04 11:16] LABS: Glucose, Whole Blood 96 mg/dL (60-115)
[2020-05-04] MEDS: Acetaminophen 325 MG TABLET 650 MG PO (13:17)
[2020-05-04 16:48] LABS: Glucose, Whole Blood 81 mg/dL (60-115)
[2020-05-04 20:45] LABS: Glucose, Whole Blood 83 mg/dL (60-115)
[2020-05-04] MEDS: Insulin Glargine,Hum.rec.anlog 100 UNIT/ML 10 ML VIAL 35 UNIT SUBCUT (21:06)
[2020-05-04] MEDS: Tamsulosin HCL 0.4 MG CAPSULE PO (21:07)
[2020-05-05] VITALS (7 sets, daily range): BP systolic 112–133; BP diastolic 54–67; PULSE 78–92; RESP 16–18; TEMP 36.1–37.1; O2SAT 92–98
[2020-05-05] MEDS: Piperacillin Sodium/Tazobactam 3.375 GM in 0.9 % Sodium Chloride 50 ML IV ×4 (01:25→19:22)
[2020-05-05 07:16] LABS: Basophils Percent Auto 0.3 % (0-2); Eosinophils Absolute Auto 0.1 X10*3/uL (0.0-0.4); Hematocrit 28.9 % (42-52); Hemoglobin 9.3 g/dl (14.0-18.0); Imm Gran Abs Auto 0.02 X10*3/uL (0.00-0.03); Imm Gran Pct Auto 0.3 % (0.0-0.4); Lymphocytes Absolute Auto 0.7 X10*3/uL (1.2-4.9); Lymphocytes Percent Auto 10.9 % (20-40); MANUAL DIFF FLAG SCAN; Mean Corpuscular HGB Conc 32.2 g/dl (31.0-36.0); Mean Corpuscular Hemoglobin 28.5 pg (27.0-33.0); Mean Corpuscular Volume 88.7 fL (80-98); Mean Platelet Volume 8.5 fL (9.4-12.4); Monocytes Absolute Auto 0.5 X10*3/uL (0.1-1.2); Monocytes Percent Auto 8.1 % (2-11); Neutrophils Absolute Auto 4.8 X10*3/uL (2.0-8.3); Neutrophils Percent Auto 79.4 % (45-73); Platelet Count 382 X10*3/uL (160-400); Red Blood Count 3.26 X10*6/uL (4.60-5.80); Red Cell Distribution Width 14.6 % (11.0-16.0); SCAN SMEAR FLAG 1; White Blood Count 6.1 X10*3/uL (4.8-10.8)
[2020-05-05 07:53] LABS: Anion Gap 12 (12-20); Blood Urea Nitrogen 12 mg/dL (9-16); Calcium 7.4 mg/dL (8.4-10.2); Carbon Dioxide 28 mmol/L (22-29); Chloride 103 mmol/L (96-108); Creatinine Clr Calc Pharmacy 62.6; Estimated Glomerular Filt Rate > 60; Glucose Fasting 42 mg/dL (60-99); Potassium 4.2 mmol/L (3.3-5.1); Sodium 139 mmol/L (135-145)
[2020-05-05 08:23] LABS: SLIDE REVIEW VERIFIED
[2020-05-05 08:27] LABS: Glucose, Whole Blood 49 mg/dL (60-115)
[2020-05-05 08:55] LABS: Glucose, Whole Blood 70 mg/dL (60-115)
--- NOTE | 2020-05-05 08:56 | MHC.CM.PN ---
CM attempted to contact pt via T/c to both his cell phone number ([phone]) and his room extension ([phone]). No answer at either number. CM will attempt to contact pt again later in the day. If unable to reach pt, CM will contact pts son, Alberto ([phone]).
--- NOTE | 2020-05-05 09:12 | P.PNIM_ITS ---
Subjective Subjective Date of Service: 05/05/20 Interval History: no complaints Cardiovascular Cardiovascular: Reports no additional cardiovascular complaints Respiratory Respiratory: Reports no additional respiratory complaints Physical Exam Vital Signs: Vital Signs: Last Vital Signs Temp 96.9 F 05/05/20 08:00 Pulse 85 05/05/20 08:00 Resp 18 05/05/20 08:00 BP 118/58 L 05/05/20 08:00 Pulse Ox 96 05/05/20 08:00 Body Mass Index 26.6 General: AO X 3, no acute distress Resp: CTA bilateral CVS: S1,S2,RRR GI: soft, non tender, non distended Neuro: motor grossly intact Psych: appropriate affect Objective Data Current Medications Generic Name Dose Route Start Last Admin Trade Name Freq PRN Reason Stop Dose Admin Acetaminophen 650 mg 05/02/20 19:11 05/04/20 13:17 Acetaminophen 325 Mg Tablet PO 650 mg Q6H PRN Administration Pain, Mild (Pain Scale 1-3) Albuterol Sulfate 2 puff 05/02/20 19:11 Albuterol Sulfate 90 Mcg 8 Gm Inhaler INHALE Q4H PRN Shortness Of Breath Or Wheezing Amlodipine Besylate 5 mg 05/03/20 09:00 05/04/20 10:25 Amlodipine Besylate 5 Mg Tablet PO 5 mg DAILY [facility]ETTA Administration Protocol Aspirin 81 mg 05/03/20 09:00 05/04/20 10:21 Aspirin Enteric Coated 81 Mg Tablet.Dr PO 81 mg DAILY [facility]TA Administration Atorvastatin Calcium 80 mg 05/03/20 09:00 05/04/20 10:19 Atorvastatin Calcium 80 Mg Tablet PO 80 mg DAILY [facility] Administration Brimonidine Tartrate 1 drop 05/02/20 21:00 05/04/20 22:10 Brimonidine Tartrate 0.2% Oph 5 Ml Bottle EYE-BOTH Not Given TID [facility] Clopidogrel Bisulfate 75 mg 05/03/20 09:00 05/04/20 10:20 Clopidogrel Bisulfate 75 Mg Tablet PO 75 mg DAILY R[facility]TA Administration Finasteride 5 mg 05/03/20 09:00 05/04/20 10:19 Finasteride 5 Mg Tablet PO 5 mg DAILY [facility] Administration Fluticasone Propionate 2 spray 05/03/20 09:00 05/04/20 11:11 Fluticasone Propionate Nasal 16 Gm [place] NOSTRIL-B Not Given DAILY [facility] Heparin Sodium (Porcine) 5,000 unit 05/02/20 19:30 05/04/20 21:05 Heparin Sodium,Porcine 5,000 Unit/Ml Vial SUBCUT 5,000 unit Q12H [facility] Administration Vancomycin HCl 750 mg/ 275 mls @ 183.333 mls/hr 05/03/20 13:00 05/04/20 19:23 Vancomycin HCl 500 mg/ Sodium IV Infused Chloride Q24H [facility] Infusion Piperacillin Sod/Tazobactam 50 mls @ 100 mls/hr 05/02/20 19:15 05/05/20 09:05 Sod 3.375 gm/ Sodium Chloride IV Infused Q6H [facility] Infusion Insulin Glargine 20 unit 05/05/20 21:00 Insulin Glargine,Hum.Rec.Anlog 100 Unit/Ml 10 Ml Vial SUBCUT BEDTIME [facility] Insulin Human Lispro 0 unit 05/03/20 20:13 05/05/20 08:04 Insulin Lispro 100 Unit/Ml 3 Ml Vial SUBCUT Not Given QIDACHS [facility] Protocol Multivitamins/Vitamin C 1 tab 05/03/20 09:00 05/04/20 10:19 Multivitamin Tablet PO 1 tab DAILY [facility] Administration Ondansetron HCl 4 mg 05/02/20 19:11 Ondansetron Hcl 4 Mg/2 Ml Vial IVPUSH Q8H PRN Nausea and Vomiting Pharmacy Consult 1 each 05/02/20 19:14 Consult Rx Vancomycin Dosing MISCELLANE DAILY PRN Consult order Sodium Chloride 3 ml 05/03/20 00:00 05/04/20 22:10 0.9 % Sodium Chloride Flush 3 Ml Syringe IVFLUSH Not Given QSHIFT [facility] Tamsulosin HCl 0.4 mg 05/02/20 21:00 05/04/20 21:07 Tamsulosin Hcl 0.4 Mg Capsule PO 0.4 mg BEDTIME [facility] Administration Labs CBC & Chem 7: 05/05/20 06:22 05/05/20 06:22 Microbiology Microbiology Results: Microbiology 05/02/20 11:53 Blood - Venous Blood Culture - Final Coag negative Staphylococcus 05/02/20 11:33 Blood - Venous Blood Culture - Preliminary No growth after 48 hours. 05/02/20 16:17 Ankle Left Gram Stain - Final 05/02/20 16:17 Ankle Left Routine Culture - Final Escherichia coli 02/04/21 19:27 Urine clean catch - Clean Catch Midstream Urine Culture - Final Assessment and Plan (1) Open wnd foot-complicated: Status: Acute Assessment and Plan: 74 year old man admitted with bilateral diabetic foot wounds Bilateral diabetic foot wounds continue antiobitcs surgery appreciated, vascular to see coag negative staph - contaminant DM with hypoglycemia in AM insulin dc glipizide, decrease pm lantus from 35units to 20units, monitor HTN amlodipine covid asymptomatic, no hypoxia urinatry retention al, flomax, finasteride
[2020-05-05] MEDS: Atorvastatin Calcium 80 MG TABLET PO (09:38)
[2020-05-05] MEDS: Clopidogrel Bisulfate 75 MG TABLET PO (09:38)
[2020-05-05] MEDS: Finasteride 5 MG TABLET PO (09:38)
[2020-05-05] MEDS: Multivitamin TABLET 1 TAB PO (09:38)
[2020-05-05] MEDS: Aspirin Enteric Coated 81 MG TABLET.DR PO (09:39)
[2020-05-05] MEDS: 0.9 % Sodium Chloride Flush 3 ML SYRINGE IVFLUSH ×2 (09:39→15:47)
[2020-05-05] MEDS: Heparin Sodium,Porcine 5,000 UNIT/ML VIAL 5000 UNIT SUBCUT ×2 (09:39→19:22)
[2020-05-05] MEDS: amLODIPine Besylate 5 MG TABLET PO (09:39)
[2020-05-05 11:50] LABS: Glucose, Whole Blood 105 mg/dL (60-115)
[2020-05-05 12:46] LABS: Vancomycin Trough 15.8 mcg/mL (10.0-20.0)
[2020-05-05] MEDS: Acetaminophen 325 MG TABLET 650 MG PO (12:46)
--- NOTE | 2020-05-05 14:45 | MHC.CM.PN ---
Addendum entered by Verena Reyez 05/05/20 14:51: CHILD [employer] TEAM LEAD completed using EMR Original Note: CM attempted to contact pt ([phone]). Pt did not answer, a VM message was left. CM attempted to contact pts son, Alberto ([phone]). There was no answer and VM did not pick up worker the call. Message left for pt included his medicare rights and a copy will be mailed to his home
[2020-05-05 16:32] LABS: Glucose, Whole Blood 109 mg/dL (60-115)
[2020-05-05 20:28] LABS: Glucose, Whole Blood 112 mg/dL (60-115)
[2020-05-05] MEDS: Tamsulosin HCL 0.4 MG CAPSULE PO (21:09)
[2020-05-05] MEDS: Insulin Glargine,Hum.rec.anlog 100 UNIT/ML 10 ML VIAL 20 UNIT SUBCUT (21:09)
[2020-05-06] VITALS (7 sets, daily range): BP systolic 119–148; BP diastolic 55–72; PULSE 81–101; RESP 16–20; TEMP 36.2–36.8; O2SAT 92–96
[2020-05-06] MEDS: Piperacillin Sodium/Tazobactam 3.375 GM in 0.9 % Sodium Chloride 50 ML IV ×4 (01:20→23:25)
[2020-05-06] MEDS: 0.9 % Sodium Chloride Flush 3 ML SYRINGE IVFLUSH ×3 (01:21→16:02)
[2020-05-06 06:10] LABS: MANUAL DIFF FLAG NO
[2020-05-06 06:14] LABS: Basophils Percent Auto 0.4 % (0-2); Eosinophils Absolute Auto 0.2 X10*3/uL (0.0-0.4); Hematocrit 28.2 % (42-52); Imm Gran Abs Auto 0.01 X10*3/uL (0.00-0.03); Imm Gran Pct Auto 0.2 % (0.0-0.4); Lymphocytes Absolute Auto 0.9 X10*3/uL (1.2-4.9); Mean Corpuscular HGB Conc 31.9 g/dl (31.0-36.0); Mean Corpuscular Hemoglobin 28.6 pg (27.0-33.0); Mean Corpuscular Volume 89.5 fL (80-98); Mean Platelet Volume 8.6 fL (9.4-12.4); Monocytes Absolute Auto 0.5 X10*3/uL (0.1-1.2); Monocytes Percent Auto 8.9 % (2-11); Neutrophils Absolute Auto 3.9 X10*3/uL (2.0-8.3); Neutrophils Percent Auto 71.5 % (45-73); Platelet Count 379 X10*3/uL (160-400); Red Blood Count 3.15 X10*6/uL (4.60-5.80); Red Cell Distribution Width 14.6 % (11.0-16.0); White Blood Count 5.4 X10*3/uL (4.8-10.8)
[2020-05-06 06:52] LABS: Anion Gap 10 (12-20); Blood Urea Nitrogen 11 mg/dL (9-16); Calcium 7.2 mg/dL (8.4-10.2); Carbon Dioxide 29 mmol/L (22-29); Chloride 105 mmol/L (96-108); Creatinine Clr Calc Pharmacy 57.8; Estimated Glomerular Filt Rate > 60; Magnesium 1.7 mg/dL (1.6-2.6); Potassium 3.7 mmol/L (3.3-5.1); Sodium 140 mmol/L (135-145)
[2020-05-06 06:54] LABS: Glucose Fasting 54 mg/dL (60-99)
[2020-05-06 07:19] LABS: Glucose, Whole Blood 70 mg/dL (60-115)
[2020-05-06] MEDS: Finasteride 5 MG TABLET PO (10:34)
[2020-05-06] MEDS: Heparin Sodium,Porcine 5,000 UNIT/ML VIAL 5000 UNIT SUBCUT ×2 (10:34→18:02)
[2020-05-06] MEDS: Multivitamin TABLET 1 TAB PO (10:35)
[2020-05-06] MEDS: Aspirin Enteric Coated 81 MG TABLET.DR PO (10:35)
[2020-05-06] MEDS: Clopidogrel Bisulfate 75 MG TABLET PO (10:35)
[2020-05-06] MEDS: Atorvastatin Calcium 80 MG TABLET PO (10:35)
[2020-05-06] MEDS: Fluticasone Propionate Nasal 16 GM SPRAY 2 SPRAY NOSTRIL-B (10:36)
[2020-05-06] MEDS: amLODIPine Besylate 5 MG TABLET PO (10:36)
[2020-05-06 11:44] LABS: Glucose, Whole Blood 69 mg/dL (60-115)
--- NOTE | 2020-05-06 16:05 | P.PNIM_ITS ---
Subjective Subjective Date of Service: 05/06/20 Interval History: hx taken in [place] from pt no fever/chills no chest pain/dyspnea Physical Exam Vital Signs: Vital Signs: Last Vital Signs Temp 98 F 05/06/20 11:47 Pulse 82 05/06/20 11:47 Resp 18 05/06/20 11:47 BP 132/72 05/06/20 11:47 Pulse Ox 96 05/06/20 11:47 Body Mass Index 26.6 Gen: in no acute distress HEENT: sclera anicteric, moist mucus membranes Neck: supple Lungs: no respiratory distress, auscultation deferred due to COVID-19 Heart: normal peripheral pulses Abd: soft, non-tender, non-distended Ext: no cyanosis, clubbing, or edema Skin: multiple ulcers R>L foot Neuro: alert and oriented x3, no focal findings Psych: appropriate affect Objective Data Current Medications Generic Name Dose Route Start Last Admin Trade Name Freq PRN Reason Stop Dose Admin Acetaminophen 650 mg 05/02/20 19:11 05/05/20 12:46 Acetaminophen 325 Mg Tablet PO 650 mg Q6H PRN Administration Pain, Mild (Pain Scale 1-3) Albuterol Sulfate 2 puff 05/02/20 19:11 Albuterol Sulfate 90 Mcg 8 Gm Inhaler INHALE Q4H PRN Shortness Of Breath Or Wheezing Amlodipine Besylate 5 mg 05/03/20 09:00 05/06/20 10:36 Amlodipine Besylate 5 Mg Tablet PO 5 mg DAILY [facility] Administration Protocol Aspirin 81 mg 05/03/20 09:00 05/06/20 10:35 Aspirin Enteric Coated 81 Mg Tablet. PO 81 mg DAILY [facility] Administration Atorvastatin Calcium 80 mg 05/03/20 09:00 05/06/20 10:35 Atorvastatin Calcium 80 Mg Tablet PO 80 mg DAILY [facility] Administration Brimonidine Tartrate 1 drop 05/02/20 21:00 05/06/20 16:01 Brimonidine Tartrate 0.2% Oph 5 Ml Bottle EYE-BOTH Not Given TID [facility] Clopidogrel Bisulfate 75 mg 05/03/20 09:00 05/06/20 10:35 Clopidogrel Bisulfate 75 Mg Tablet PO 75 mg DAILY [facility] Administration Finasteride 5 mg 05/03/20 09:00 05/06/20 10:34 Finasteride 5 Mg Tablet PO 5 mg DAILY [facility] Administration Fluticasone Propionate 2 spray 05/03/20 09:00 05/06/20 10:36 Fluticasone Propionate Nasal 16 Gm [place] NOSTRIL-B 2 spray DAILY [facility] Administration Heparin Sodium (Porcine) 5,000 unit 05/02/20 19:30 05/06/20 10:34 Heparin Sodium,Porcine 5,000 Unit/Ml Vial SUBCUT 5,000 unit Q12H [facility] Administration Vancomycin HCl 750 mg/ 275 mls @ 183.333 mls/hr 05/03/20 13:00 05/06/20 16:00 Vancomycin HCl 500 mg/ Sodium IV 183.33 mls/hr Chloride Q24H [facility] Administration Piperacillin Sod/Tazobactam 50 mls @ 100 mls/hr 05/06/20 16:00 Sod 3.375 gm/ Sodium Chloride IV Q6H [facility] Insulin Glargine 10 unit 05/06/20 21:00 Insulin Glargine,Hum.Rec.Anlog 100 Unit/Ml 10 Ml Vial SUBCUT BEDTIME [facility] Insulin Human Lispro 0 unit 05/03/20 20:13 05/06/20 12:02 Insulin Lispro 100 Unit/Ml 3 Ml Vial SUBCUT Not Given QIDACHS [facility] Protocol Multivitamins/Vitamin C 1 tab 05/03/20 09:00 05/06/20 10:35 Multivitamin Tablet PO 1 tab DAILY [facility] Administration Ondansetron HCl 4 mg 05/02/20 19:11 Ondansetron Hcl 4 Mg/2 Ml Vial IVPUSH Q8H PRN Nausea and Vomiting Pharmacy Consult 1 each 05/02/20 19:14 Consult Rx Vancomycin Dosing MISCELLANE DAILY PRN Consult order Sodium Chloride 3 ml 05/03/20 00:00 05/06/20 16:02 0.9 % Sodium Chloride Flush 3 Ml Syringe IVFLUSH 3 ml QSHIFT [facility] Administration Tamsulosin HCl 0.4 mg 05/02/20 21:00 05/05/20 21:09 Tamsulosin Hcl 0.4 Mg Capsule PO 0.4 mg BEDTIME [facility] Administration Labs CBC & Chem 7: 05/06/20 05:28 05/06/20 05:28 Labs: Laboratory Results - last 24 hr 05/05/20 05/05/20 05/06/20 16:22 20:12 05:28 WBC 5.4 RBC 3.15 L Hgb 9.0 L Hct 28.2 L MCV 89.5 MCH 28.6 MCHC 31.9 RDW 14.6 Plt Count 379 MPV 8.6 L Immature Gran % (Auto) 0.2 Neut % (Auto) 71.5 Lymph % (Auto) 16.0 L [place] % (Auto) 8.9 Eos % (Auto) 3.0 Baso % (Auto) 0.4 Lymph # (Auto) 0.9 L [place] # (Auto) 0.5 Eos # (Auto) 0.2 Baso # (Auto) 0.0 Abs Immat Gran (auto) 0.01 Absolute Neuts (auto) 3.9 Absolute Nucleated RBC 0.000 Nucleated RBC % (auto) 0.0 Sodium Potassium Chloride Carbon Dioxide Anion Gap BUN Creatinine Estim Creat Clear Calc Estimated GFR POC Glucose 109 112 Fasting Glucose Calcium Magnesium 05/06/20 05/06/20 05/06/20 05:28 07:10 11:41 WBC RBC Hgb Hct MCV MCH MCHC RDW Plt Count MPV Immature Gran % (Auto) Neut % (Auto) Lymph % (Auto) [place] % (Auto) Eos % (Auto) Baso % (Auto) Lymph # (Auto) [place] # (Auto) Eos # (Auto) Baso # (Auto) Abs Immat Gran (auto) Absolute Neuts (auto) Absolute Nucleated RBC Nucleated RBC % (auto) Sodium 140 Potassium 3.7 Chloride 105 Carbon Dioxide 29 Anion Gap 10 L BUN 11 Creatinine 0.91 Estim Creat Clear Calc 57.8 Estimated GFR > 60 POC Glucose 70 69 Fasting Glucose 54 L* Calcium 7.2 L Magnesium 1.7 ITS Impressions Foot X-Ray 05/02/20 11:26 IMPRESSION: Abnormal appearance of both feet involving the midfoot/hindfoot, likely neuropathic in origin. No osseous erosions are seen, but cannot exclude infectious process. Soft tissue swelling is present. Foot X-Ray 05/02/20 11:26 IMPRESSION: Abnormal appearance of both feet involving the midfoot/hindfoot, likely neuropathic in origin. No osseous erosions are seen, but cannot exclude infectious process. Soft tissue swelling is present. Microbiology Microbiology Results: Microbiology 05/02/20 11:53 Blood - Venous Blood Culture - Final Coag negative Staphylococcus 05/02/20 11:33 Blood - Venous Blood Culture - Preliminary No growth after 48 hours. 05/02/20 16:17 Ankle Left Gram Stain - Final 05/02/20 16:17 Ankle Left Routine Culture - Final Escherichia coli 05/02/20 19:27 Urine clean catch - Clean Catch Midstream Urine Culture - Final Assessment and Plan (1) Open wnd foot-complicated: Status: Acute Assessment and Plan: hospital d#5 74yo M with DM2 admitted with concern of infected bilateral diabetic foot ulcers asymptomatic COVID-19 infection # diabetic foot ulcers witn infection - pip/norm + vanco d#5 - ID + Vascular consults. may require angiogram/R BKA # COVID-19 infection - asymptomatic, tested positive 05/02/20 # DM2 with am hypoglycemia - decrease Lantus from 20 to 10 units, continue correction-dose lispro # HTN - continue amlodipine # PVD - continue clopidogrel + statin # urinary retention - continue finasteride + tamsulosin, Gaytan in place # VTE ppx - UFH # dispo - pending any surgical intervention
--- NOTE | 2020-05-06 16:22 | P.CNID_ITS ---
History of Present Illness Data of Consult Service Date: 05/06/20 Requesting physician: Richy Rivera Primary Care Provider: MD CHILO Mcmanus Reason for consult: left foot infection He presents with left lateral foot swelling and purulence He was hospitalized at [facility] recently with COVID He has some chills Review of Systems Review of Systems: Yes all other systems are reviewed and are negative PMFSH Past Medical History Medical History Arthritis Asthma Candidiasis of penis Cholelithiasis Diabetes mellitus, type 2 Diverticulosis Hiatal hernia Hydronephrosis Hyperlipidemia Hypertension Sepsis Severe sepsis Wheelchair dependence Surgical History Surgical History H/O hernia repair Social History Social History Household Members: Other Housing: Apartment Alcohol intake: unknown Smoking Status: Never smoker Second Hand Smoke Exposure: No service: No Current occupational status: disabled Meds Allergies Allergy/AdvReac Type Severity Reaction Status Date / Time No Known Allergies Allergy Unverified 12/14/19 18:22 [No Known Allergies*] Home Medications Medication Instructions Recorded Confirmed Type Lantus Solostar U-100 Insulin 35 unit SUBCUT BEDTIME 01/01/20 05/02/20 History albuterol sulfate 2 puff PO Q4-6H PRN 01/01/20 05/02/20 History amlodipine 5 mg PO DAILY 01/01/20 05/02/20 History clopidogrel 75 mg PO DAILY 01/01/20 05/02/20 History glimepiride 1 mg PO DAILY 01/01/20 05/02/20 History atorvastatin 80 mg tablet 80 mg PO DAILY 02/12/20 05/02/20 History aspirin 81 mg PO DAILY 05/02/20 05/02/20 History brimonidine 1 drp OPHTHALMIC (EYE) TID 05/02/20 05/02/20 History finasteride 5 mg PO DAILY 05/02/20 05/02/20 History fluticasone propionate [Flonase] 2 spray INTRANASAL DAILY 05/02/20 05/02/20 History melatonin 3 mg PO BEDTIME 05/02/20 05/02/20 History multivitamin [Daily-Casa] 1 tab PO DAILY 05/02/20 05/02/20 History sulfamethoxazole-trimethoprim 1 tab PO Q12H 05/02/20 05/02/20 History [SMZ-TMP DS] tamsulosin 0.4 mg PO BEDTIME 05/02/20 05/02/20 History Physical Exam Vital Signs: Vital Signs: Last Vital Signs Temp 98.2 F 05/06/20 16:00 Pulse 99 05/06/20 16:00 Resp 18 05/06/20 16:00 BP 145/65 H 05/06/20 16:00 Pulse Ox 94 05/06/20 16:00 Body Mass Index 26.6 Const: General: cooperative HENMT: Head: Yes normal to inspection Mouth: Normal oral and palatal mucosa present Resp: Effort & Inspection: normal respiratory effort Cardio: Rate: regular rate Rhythm: regular rhythm GI: Palpation (GI): Soft to palpation and nontender : General: Yes no CVA tenderness Back/Spine/Pelvis: Back: no CVA tenderness Skin: General skin exam: no rashes or lesions noted Extrem: Other: purulence lateral left foot Assessment and Plan (1) Open wnd foot-complicated: Qualifiers: Encounter type: initial encounter Laterality: left Qualified Code(s): S91.302A - Unspecified open wound, left foot, initial encounter Problem details: Possible gram negative /gram positive Diabetic foot infection,possible osteomyelitis Status: Acute Continue antibiotics See Dr Anderson If surgery done,doesnt need retirement antibiotics if all affected area removed Results Labs CBC & Chem 7: 05/06/20 05:28 05/06/20 05:28 Labs: Short CBC 05/06/20 Range/Units 05:28 WBC 5.4 (4.8-10.8) X10*3/uL Hgb 9.0 L (14.0-18.0) g/dl Hct 28.2 L (42-52) % Plt Count 379 (160-400) X10*3/uL BMP 05/06/20 05:28 Sodium 140 Potassium 3.7 Chloride 105 Carbon Dioxide 29 BUN 11 Creatinine 0.91 Calcium 7.2 L Microbiology Microbiology Results: Microbiology 05/02/20 11:53 Blood - Venous Blood Culture - Final Coag negative Staphylococcus 05/02/20 11:33 Blood - Venous Blood Culture - Preliminary No growth after 48 hours. 05/02/20 16:17 Ankle Left Gram Stain - Final 05/02/20 16:17 Ankle Left Routine Culture - Final Escherichia coli 05/02/20 19:27 Urine clean catch - Clean Catch Midstream Urine Culture - Final
[2020-05-06 16:52] LABS: Glucose, Whole Blood 124 mg/dL (60-115)
[2020-05-06 20:44] LABS: Glucose, Whole Blood 174 mg/dL (60-115)
[2020-05-06] MEDS: Insulin Lispro 100 UNIT/ML 3 ML VIAL SUBCUT (23:25)
[2020-05-06] MEDS: Tamsulosin HCL 0.4 MG CAPSULE PO (23:25)
[2020-05-06] MEDS: Insulin Glargine,Hum.rec.anlog 100 UNIT/ML 10 ML VIAL 10 UNIT SUBCUT (23:26)
[2020-05-07] VITALS (8 sets, daily range): BP systolic 97–144; BP diastolic 52–67; PULSE 77–95; RESP 16–20; TEMP 36–37.2; O2SAT 94–96
[2020-05-07] MEDS: 0.9 % Sodium Chloride Flush 3 ML SYRINGE IVFLUSH ×4 (02:36→23:07)
[2020-05-07] MEDS: Piperacillin Sodium/Tazobactam 3.375 GM in 0.9 % Sodium Chloride 50 ML IV ×4 (04:42→21:57)
[2020-05-07 05:52] LABS: MANUAL DIFF FLAG NO
[2020-05-07 06:18] LABS: Basophils Percent Auto 0.4 % (0-2); Eosinophils Absolute Auto 0.1 X10*3/uL (0.0-0.4); Eosinophils Percent Auto 2.6 % (0-4); Hematocrit 29.7 % (42-52); Hemoglobin 9.2 g/dl (14.0-18.0); Imm Gran Abs Auto 0.01 X10*3/uL (0.00-0.03); Imm Gran Pct Auto 0.2 % (0.0-0.4); Lymphocytes Percent Auto 19.6 % (20-40); Mean Corpuscular Hemoglobin 28.1 pg (27.0-33.0); Mean Corpuscular Volume 90.8 fL (80-98); Mean Platelet Volume 8.6 fL (9.4-12.4); Monocytes Absolute Auto 0.4 X10*3/uL (0.1-1.2); Monocytes Percent Auto 8.1 % (2-11); Neutrophils Absolute Auto 3.4 X10*3/uL (2.0-8.3); Neutrophils Percent Auto 69.1 % (45-73); Platelet Count 361 X10*3/uL (160-400); Red Blood Count 3.27 X10*6/uL (4.60-5.80); Red Cell Distribution Width 14.6 % (11.0-16.0)
[2020-05-07 06:21] LABS: Anion Gap 13 (12-20); Blood Urea Nitrogen 10 mg/dL (9-16); C Reactive Protein 5.42 mg/dL (< or = 0.50); Calcium 7.3 mg/dL (8.4-10.2); Carbon Dioxide 28 mmol/L (22-29); Chloride 104 mmol/L (96-108); Creatinine Clr Calc Pharmacy 61.1; Estimated Glomerular Filt Rate > 60; Glucose Random 61 mg/dL (60-115); Sodium 141 mmol/L (135-145)
--- NOTE | 2020-05-07 08:01 | PC.NURSE ---
Addendum entered by Shala Martin RN 05/07/20 09:25: Recheck POC blood glucose 118 Original Note: Patient POC blood glucose 58, asymptomatic. PT given 8oz of orange juice and breakfast tray. Dr. Rivera made aware. No new orders. Will recheck POC blood glucose in 15 mins.
[2020-05-07] MEDS: Heparin Sodium,Porcine 5,000 UNIT/ML VIAL 5000 UNIT SUBCUT ×2 (08:07→18:04)
[2020-05-07] MEDS: Clopidogrel Bisulfate 75 MG TABLET PO (08:07)
[2020-05-07] MEDS: Finasteride 5 MG TABLET PO (08:08)
[2020-05-07] MEDS: Aspirin Enteric Coated 81 MG TABLET.DR PO (08:08)
[2020-05-07] MEDS: amLODIPine Besylate 5 MG TABLET PO (08:08)
[2020-05-07] MEDS: Multivitamin TABLET 1 TAB PO (08:08)
[2020-05-07] MEDS: Atorvastatin Calcium 80 MG TABLET PO (08:08)
[2020-05-07] MEDS: Fluticasone Propionate Nasal 16 GM SPRAY 2 SPRAY NOSTRIL-B (08:09)
[2020-05-07 08:26] LABS: Glucose, Whole Blood 58 mg/dL (60-115)
[2020-05-07 09:28] LABS: Glucose, Whole Blood 118 mg/dL (60-115)
--- NOTE | 2020-05-07 10:04 | P.CONGS_ITS ---
History of Present Illness Consult details Consult date: 05/06/20 Reason for consult: other (Nonhealing leg ulcer) Narrative: Complex 74-year-old gentleman presents for vascular evaluation regarding nonhealing lower extremity ulceration. He had been admitted for pr ogression nonhealing left heel ulcer. Of note in general the patient is confused in history of CVA. He upon admission was worked up and noted to be COVID positive. He he has had prior admissions and has had prior arterial ultrasound. He has been seen and evaluated by General surgery. They have requested vascular evaluation regarding his arterial status. Review of Systems Constitutional: Constitutional: Reports daytime sleepiness and Reports other (Generalized confusion) ENT: Reports Normal hearing present Cardiovascular: Cardiovascular: Denies chest pain, Denies chest pain at rest, Denies chest pain with activity and Denies pedal edema Respiratory: Respiratory: Denies cough Gastrointestinal: Gastrointestinal: Denies abdominal pain Musculoskeletal: Musculoskeletal: Denies abnormal gait, Denies muscle cramps and Denies radiating pain into limb Integumentary/Breasts: Skin/Breast: Denies skin ulcer and Denies wounds Neurologic: Reports Normal hearing present and Denies abnormal gait Psychiatric: Psychiatric: Reports no additional psychiatric complaints PMFSH Past Medical History Medical History Arthritis Asthma Candidiasis of penis Cholelithiasis Diabetes mellitus, type 2 Diverticulosis Hiatal hernia Hydronephrosis Hyperlipidemia Hypertension Sepsis Severe sepsis Wheelchair dependence Surgical History Surgical History H/O hernia repair Social History Social History Household Members: Other Housing: Apartment Alcohol intake: unknown Smoking Status: Never smoker Second Hand Smoke Exposure: No service: No Current occupational status: disabled Meds Allergies Allergy/AdvReac Type Severity Reaction Status Date / Time No Known Allergies Allergy Unverified 12/14/19 18:22 [No Known Allergies*] Home Medications Medication Instructions Recorded Confirmed Type Lantus Solostar U-100 Insulin 35 unit SUBCUT BEDTIME 01/01/20 05/02/20 History albuterol sulfate 2 puff PO Q4-6H PRN 01/01/20 05/02/20 History amlodipine 5 mg PO DAILY 01/01/20 05/02/20 History clopidogrel 75 mg PO DAILY 01/01/20 05/02/20 History glimepiride 1 mg PO DAILY 01/01/20 05/02/20 History atorvastatin 80 mg tablet 80 mg PO DAILY 02/12/20 05/02/20 History aspirin 81 mg PO DAILY 05/02/20 05/02/20 History brimonidine 1 drp OPHTHALMIC (EYE) TID 05/02/20 05/02/20 History finasteride 5 mg PO DAILY 05/02/20 05/02/20 History fluticasone propionate [Flonase] 2 spray INTRANASAL DAILY 05/02/20 05/02/20 History melatonin 3 mg PO BEDTIME 05/02/20 05/02/20 History multivitamin [Daily-Casa] 1 tab PO DAILY 05/02/20 05/02/20 History sulfamethoxazole-trimethoprim 1 tab PO Q12H 05/02/20 05/02/20 History [SMZ-TMP DS] tamsulosin 0.4 mg PO BEDTIME 05/02/20 05/02/20 History Physical Exam Vital Signs: Vital Signs: Last Vital Signs Temp 97.8 F 05/07/20 07:48 Pulse 87 05/07/20 08:08 Resp 20 05/07/20 07:48 BP 117/58 L 05/07/20 08:08 Pulse Ox 95 05/07/20 07:48 Body Mass Index 26.6 Const: General: cooperative, healthy appearing and no acute distress Orientation/consciousness: oriented to person, oriented to place and oriented to time HENMT: Head: Yes normal to inspection Neck: Neck: Yes normal visual inspection Carotids: no bruits Chest: Chest palpation & inspection: normal inspection of the chest Resp: Effort & Inspection: normal respiratory effort and able to speak in complete sentences Auscultation: clear to auscultation bilaterally Cardio: Rate: regular rate Rhythm: regular rhythm Heart sounds: S1 normal heart sound present and S2 normal heart sound present Bruits: no carotid bruits Peripheral pulses: Peripheral pulses 2+ throughout GI: Inspection: Yes normal to inspection Skin: General skin exam: no rashes or lesions noted Wounds: wounds noted (Right lateral leg 3 focal dry areas. Left heel dry eschar) Hair: normal Neuro: General: oriented to person, oriented to place, oriented to time and CN's II-XI intact bilaterally Cranial nerves: Yes CN's II-XII intact bilaterally and Yes Normal hearing present Cognition (Neuro): normal cognition Motor exam (neuro): 5/5 motor strength present throughout Extrem: Other: venous exam: No significant superficial varicosities or spider telangiectasias, minimal edema General: Yes normal to inspection, Yes full ROM and Yes no clubbing, cyanosis or edema Psych: Appearance: grossly normal and well kempt Mental Status: mental status grossly normal Speech and movement: Normal speech and movement present Affect: normal affect Results Labs Result diagrams: 05/07/20 05:33 05/07/20 05:33 Labs: Abnormal lab results 05/06/20 05/06/20 05/07/20 Range/Units 16:48 20:39 05:33 RBC 3.27 L (4.60-5.80) X10*6/uL Hgb 9.2 L (14.0-18.0) g/dl Hct 29.7 L (42-52) % MPV 8.6 L (9.4-12.4) fL Lymph % (Auto) 19.6 L (20-40) % Lymph # (Auto) 1.0 L (1.2-4.9) X10*3/uL POC Glucose 124 H 174 H (60-115) mg/dL Calcium (8.4-10.2) mg/dL C-Reactive Protein (< or = 0.50) mg/dL 05/07/20 05/07/20 05/07/20 Range/Units 05:33 07:46 09:22 RBC (4.60-5.80) X10*6/uL Hgb (14.0-18.0) g/dl Hct (42-52) % MPV (9.4-12.4) fL Lymph % (Auto) (20-40) % Lymph # (Auto) (1.2-4.9) X10*3/uL POC Glucose 58 L* 118 H (60-115) mg/dL Calcium 7.3 L (8.4-10.2) mg/dL C-Reactive Protein 5.42 H (< or = 0.50) mg/dL Short CBC 05/07/20 Range/Units 05:33 WBC 5.0 (4.8-10.8) X10*3/uL Hgb 9.2 L (14.0-18.0) g/dl Hct 29.7 L (42-52) % Plt Count 361 (160-400) X10*3/uL BMP 05/07/20 05:33 Sodium 141 Potassium 4.0 Chloride 104 Carbon Dioxide 28 BUN 10 Creatinine 0.86 Calcium 7.3 L Urine 05/02/20 Range/Units 19:09 Urine Color YELLOW Urine Appearance CLOUDY Urine pH 6.5 (5.0-8.0) Ur Specific [place] 1.015 (1.005-1.025) Urine Protein 3+ H (NEG-TRACE) MG/DL Urine Glucose (UA) 250 H (NEG) MG/DL All other labs normal. Assessment and Plan (1) PVD (peripheral vascular disease): Status: Acute Noninvasive testing independently reviewed and interpreted. The KRISTINA of 0.88 May be artifactually elevated. There appears to be distal SFA and below knee disease. He may benefit from endovascular intervention. Unfortunately he may end up with a below-knee amputation on the left side. The right side is laterally rotated and appears to be more of a pressure ulcer. Recommend offloading as much as possible. We will follow-up with healthcare proxy for possible intervention. Thank you for allowing us to assist in this patient's care.
[2020-05-07 11:34] LABS: Glucose, Whole Blood 132 mg/dL (60-115)
--- NOTE | 2020-05-07 12:37 | HO.VASCPN ---
Subjective Subjective Date of Service: 05/07/20 Patient reports: no new complaints and feels better Interval history: Pt. seen and examined. No new events. In much better spirits this morning. Physical Exam Vital Signs: Vital Signs: Last Vital Signs Temp 98.9 F 05/07/20 12:00 Pulse 85 05/07/20 12:00 Resp 20 05/07/20 12:00 BP 129/57 L 05/07/20 12:00 Pulse Ox 94 05/07/20 12:00 Body Mass Index 26.6 Const: General: cooperative, healthy appearing and no acute distress Orientation/consciousness: oriented to person, oriented to place and oriented to time HENMT: Head: Yes normal to inspection Neck: Carotids: no bruits Chest: Chest palpation & inspection: normal inspection of the chest Resp: Effort & Inspection: normal respiratory effort and able to speak in complete sentences Auscultation: clear to auscultation bilaterally Cardio: Rate: regular rate Heart sounds: S1 normal heart sound present and S2 normal heart sound present Peripheral pulses: other (DP signals only) GI: Inspection: Yes normal to inspection Skin: General skin exam: no rashes or lesions noted Wounds: wounds noted (left heel ulcer. r lat foot ulcerx3. ) Neuro: General: oriented to person, oriented to place, oriented to time and CN's II-XI intact bilaterally Extrem: General: Yes normal to inspection, Yes full ROM and Yes no clubbing, cyanosis or edema Psych: Appearance: grossly normal and well kempt Speech and movement: Normal speech and movement present Affect: normal affect Progress Note: A&P Assessment and plan (1) PVD (peripheral vascular disease): Status: Acute Assessment and Plan: Patient notes nonhealing left leg ulcer. I have discussed the pathophysiology of peripheral vascular disease with the patient. I have also discussed risk factor modification. I have reviewed the patient's arterial testing which reveals distal SFA disease. the patient would benefit from a left leg endovascular peripheral angiogram with possible angioplasty, stent, and/or atherectomy. This has been discussed in detail with the patient along with risks, benefits, and complications. This includes but is not limited to bleeding, infection, heart attack, need for emergent surgical repair, limb ischemia, blood vessel damage, bleeding, puncture, kidney injury, bruising, allergic reaction, and skin reaction. The patient demonstrates a clear understanding. We will schedule for the next appropriate time. Thank you for allowing us to assist in this patient's care. Fall Risk Details Current Medications: Current Medications Generic Name Dose Route Start Last Admin Trade Name Marko PRN Reason Stop Dose Admin Acetaminophen 650 mg 05/02/20 19:11 05/05/20 12:46 Acetaminophen 325 Mg Tablet PO 650 mg Q6H PRN Administration Pain, Mild (Pain Scale 1-3) Albuterol Sulfate 2 puff 05/02/20 19:11 Albuterol Sulfate 90 Mcg 8 Gm Inhaler INHALE Q4H PRN Shortness Of Breath Or Wheezing Amlodipine Besylate 5 mg 05/03/20 09:00 05/07/20 08:08 Amlodipine Besylate 5 Mg Tablet PO 5 mg DAILY RENETTA Administration Protocol Aspirin 81 mg 05/03/20 09:00 05/07/20 08:08 Aspirin Enteric Coated 81 Mg Tablet. PO 81 mg DAILY RENETTA Administration Atorvastatin Calcium 80 mg 05/03/20 09:00 05/07/20 08:08 Atorvastatin Calcium 80 Mg Tablet PO 80 mg DAILY RENETTA Administration Brimonidine Tartrate 1 drop 05/02/20 21:00 05/07/20 08:09 Brimonidine Tartrate 0.2% Oph 5 Ml Bottle EYE-BOTH Not Given TID RENETTA Clopidogrel Bisulfate 75 mg 05/03/20 09:00 05/07/20 08:07 Clopidogrel Bisulfate 75 Mg Tablet PO 75 mg DAILY RENETTA Administration Finasteride 5 mg 05/03/20 09:00 05/07/20 08:08 Finasteride 5 Mg Tablet PO 5 mg DAILY RENETTA Administration Fluticasone Propionate 2 spray 05/03/20 09:00 05/07/20 08:09 Fluticasone Propionate Nasal 16 Gm [place] NOSTRIL-B 2 spray DAILY RENETTA Administration Heparin Sodium (Porcine) 5,000 unit 05/02/20 19:30 05/07/20 08:07 Heparin Sodium,Porcine 5,000 Unit/Ml Vial SUBCUT 5,000 unit Q12H RENETTA Administration Vancomycin HCl 750 mg/ 275 mls @ 183.333 mls/hr 05/03/20 13:00 05/06/20 17:35 Vancomycin HCl 500 mg/ Sodium IV Infused Chloride Q24H RENETTA Infusion Piperacillin Sod/Tazobactam 50 mls @ 100 mls/hr 05/06/20 16:00 05/07/20 10:46 Sod 3.375 gm/ Sodium Chloride IV Infused Q6H RENETTA Infusion Insulin Human Lispro 0 unit 05/03/20 20:13 05/07/20 11:25 Insulin Lispro 100 Unit/Ml 3 Ml Vial SUBCUT Not Given QIDACHS [facility] Protocol Multivitamins/Vitamin C 1 tab 05/03/20 09:00 05/07/20 08:08 Multivitamin Tablet PO 1 tab DAILY RENETTA Administration Ondansetron HCl 4 mg 05/02/20 19:11 Ondansetron Hcl 4 Mg/2 Ml Vial IVPUSH Q8H PRN Nausea and Vomiting Pharmacy Consult 1 each 05/02/20 19:14 Consult Rx Vancomycin Dosing MISCELLANE DAILY PRN Consult order Sodium Chloride 3 ml 05/03/20 00:00 05/07/20 07:55 0.9 % Sodium Chloride Flush 3 Ml Syringe IVFLUSH 3 ml QSHIFT RENETTA Administration Tamsulosin HCl 0.4 mg 05/02/20 21:00 05/06/20 23:25 Tamsulosin Hcl 0.4 Mg Capsule PO 0.4 mg BEDTIME RENETTA Administration Time Spent With Patient Time: Total time spent is greater than 50% in coordination of care (as documented) at patient's floor/unit and/or counseling patient: Time with patient: 15 - 24 minutes
--- NOTE | 2020-05-07 13:50 | P.PNIM_ITS ---
Subjective Subjective Date of Service: 05/07/20 Interval History: C/o pain of L foot. Denies fever, chills, cough, dyspnea, or chest pain. Physical Exam Vital Signs: Vital Signs: Last Vital Signs Temp 98.9 F 05/07/20 12:00 Pulse 85 05/07/20 12:00 Resp 20 05/07/20 12:00 BP 129/57 L 05/07/20 12:00 Pulse Ox 94 05/07/20 12:00 Body Mass Index 26.6 Gen: in no acute distress HEENT: sclera anicteric, moist mucus membranes Neck: supple Lungs: no respiratory distress, auscultation deferred due to COVID-19 Heart: normal peripheral pulses Abd: soft, non-tender, non-distended Ext: no cyanosis, clubbing, or edema Skin: multiple ulcers R>L foot Neuro: alert and oriented x3, no focal findings Psych: appropriate affect Objective Data Current Medications Generic Name Dose Route Start Last Admin Trade Name Freq PRN Reason Stop Dose Admin Acetaminophen 650 mg 05/02/20 19:11 05/05/20 12:46 Acetaminophen 325 Mg Tablet PO 650 mg Q6H PRN Administration Pain, Mild (Pain Scale 1-3) Albuterol Sulfate 2 puff 05/02/20 19:11 Albuterol Sulfate 90 Mcg 8 Gm Inhaler INHALE Q4H PRN Shortness Of Breath Or Wheezing Amlodipine Besylate 5 mg 05/03/20 09:00 05/07/20 08:08 Amlodipine Besylate 5 Mg Tablet PO 5 mg DAILY RENETTA Administration Protocol Aspirin 81 mg 05/03/20 09:00 05/07/20 08:08 Aspirin Enteric Coated 81 Mg Tablet. PO 81 mg DAILY RENETTA Administration Atorvastatin Calcium 80 mg 05/03/20 09:00 05/07/20 08:08 Atorvastatin Calcium 80 Mg Tablet PO 80 mg DAILY RENETTA Administration Brimonidine Tartrate 1 drop 05/02/20 21:00 05/07/20 08:09 Brimonidine Tartrate 0.2% Oph 5 Ml Bottle EYE-BOTH Not Given TID RENETTA Clopidogrel Bisulfate 75 mg 05/03/20 09:00 05/07/20 08:07 Clopidogrel Bisulfate 75 Mg Tablet PO 75 mg DAILY RENETTA Administration Finasteride 5 mg 05/03/20 09:00 02/09/21 08:08 Finasteride 5 Mg Tablet PO 5 mg DAILY RENETTA Administration Fluticasone Propionate 2 spray 05/03/20 09:00 05/07/20 08:09 Fluticasone Propionate Nasal 16 Gm [place] NOSTRIL-B 2 spray DAILY RENETTA Administration Heparin Sodium (Porcine) 5,000 unit 05/02/20 19:30 05/07/20 08:07 Heparin Sodium,Porcine 5,000 Unit/Ml Vial SUBCUT 5,000 unit Q12H RENETTA Administration Vancomycin HCl 750 mg/ 275 mls @ 183.333 mls/hr 05/03/20 13:00 05/07/20 13:15 Vancomycin HCl 500 mg/ Sodium IV 183.33 mls/hr Chloride Q24H RENETTA Administration Piperacillin Sod/Tazobactam 50 mls @ 100 mls/hr 05/06/20 16:00 05/07/20 10:46 Sod 3.375 gm/ Sodium Chloride IV Infused Q6H RENETTA Infusion Insulin Human Lispro 0 unit 05/03/20 20:13 05/07/20 11:25 Insulin Lispro 100 Unit/Ml 3 Ml Vial SUBCUT Not Given QIDACHS [facility] Protocol Multivitamins/Vitamin C 1 tab 05/03/20 09:00 05/07/20 08:08 Multivitamin Tablet PO 1 tab DAILY [facility] Administration Ondansetron HCl 4 mg 05/02/20 19:11 Ondansetron Hcl 4 Mg/2 Ml Vial IVPUSH Q8H PRN Nausea and Vomiting Pharmacy Consult 1 each 05/02/20 19:14 Consult Rx Vancomycin Dosing MISCELLANE DAILY PRN Consult order Sodium Chloride 3 ml 05/03/20 00:00 05/07/20 07:55 0.9 % Sodium Chloride Flush 3 Ml Syringe IVFLUSH 3 ml QSHIFT [facility] Administration Tamsulosin HCl 0.4 mg 05/02/20 21:00 05/06/20 23:25 Tamsulosin Hcl 0.4 Mg Capsule PO 0.4 mg BEDTIME RENETTA Administration Labs CBC & Chem 7: 05/07/20 05:33 05/07/20 05:33 Labs: Laboratory Results - last 24 hr 05/06/20 05/06/20 05/07/20 16:48 20:39 05:33 WBC 5.0 RBC 3.27 L Hgb 9.2 L Hct 29.7 L MCV 90.8 MCH 28.1 MCHC 31.0 RDW 14.6 Plt Count 361 MPV 8.6 L Immature Gran % (Auto) 0.2 Neut % (Auto) 69.1 Lymph % (Auto) 19.6 L [place] % (Auto) 8.1 Eos % (Auto) 2.6 Baso % (Auto) 0.4 Lymph # (Auto) 1.0 L [place] # (Auto) 0.4 Eos # (Auto) 0.1 Baso # (Auto) 0.0 Abs Immat Gran (auto) 0.01 Absolute Neuts (auto) 3.4 Absolute Nucleated RBC 0.000 Nucleated RBC % (auto) 0.0 Sodium Potassium Chloride Carbon Dioxide Anion Gap BUN Creatinine Estim Creat Clear Calc Estimated GFR POC Glucose 124 H 174 H Random Glucose Calcium C-Reactive Protein 05/07/20 05/07/20 05/07/20 05:33 07:46 09:22 WBC RBC Hgb Hct MCV MCH MCHC RDW Plt Count MPV Immature Gran % (Auto) Neut % (Auto) Lymph % (Auto) [place] % (Auto) Eos % (Auto) Baso % (Auto) Lymph # (Auto) [place] # (Auto) Eos # (Auto) Baso # (Auto) Abs Immat Gran (auto) Absolute Neuts (auto) Absolute Nucleated RBC Nucleated RBC % (auto) Sodium 141 Potassium 4.0 Chloride 104 Carbon Dioxide 28 Anion Gap 13 BUN 10 Creatinine 0.86 Estim Creat Clear Calc 61.1 Estimated GFR > 60 POC Glucose 58 L* 118 H Random Glucose 61 D Calcium 7.3 L C-Reactive Protein 5.42 H 05/07/20 11:23 WBC RBC Hgb Hct MCV MCH MCHC RDW Plt Count MPV Immature Gran % (Auto) Neut % (Auto) Lymph % (Auto) [place] % (Auto) Eos % (Auto) Baso % (Auto) Lymph # (Auto) [place] # (Auto) Eos # (Auto) Baso # (Auto) Abs Immat Gran (auto) Absolute Neuts (auto) Absolute Nucleated RBC Nucleated RBC % (auto) Sodium Potassium Chloride Carbon Dioxide Anion Gap BUN Creatinine Estim Creat Clear Calc Estimated GFR POC Glucose 132 H Random Glucose Calcium C-Reactive Protein Microbiology Microbiology Results: Microbiology 05/02/20 11:33 Blood - Venous Blood Culture - Final No growth after 5 days. 05/02/20 11:53 Blood - Venous Blood Culture - Final Coag negative Staphylococcus 05/02/20 16:17 Ankle Left Gram Stain - Final 05/02/20 16:17 Ankle Left Routine Culture - Final Escherichia coli 05/02/20 19:27 Urine clean catch - Clean Catch Midstream Urine Culture - Final Assessment and Plan (1) Open wnd foot-complicated: Status: Acute Assessment and Plan: hospital d#6 74yo M with DM2 admitted with concern of infected bilateral diabetic foot ulcers resolving COVID-19 infection (admitted to [facility] 04/23-04/26/20) # diabetic foot infection with ulcers - pip/norm + vanco d#6 - ID + Vascular consulted. Plan LLE angiogram tomorrow. May require BKA for definitive treatment. # COVID-19 infection - asymptomatic, tested positive 05/02/20 # DM2 with am hypoglycemia - d/c Lantus # HTN - continue amlodipine # PVD - continue clopidogrel + statin # urinary retention - continue finasteride + tamsulosin, Gaytan in place # VTE ppx - UFH # dispo - pending any surgical intervention I updated the pt's son Alberto by phone, [phone]
[2020-05-07 14:04] LABS: INTERNATIONAL NORM RATIO 1.1 (0.9-1.1)
[2020-05-07 14:07] LABS: Partial Thromboplastin Time 42.4 SEC (24.1-38.0)
[2020-05-07 16:53] LABS: Glucose, Whole Blood 153 mg/dL (60-115)
[2020-05-07] MEDS: Insulin Lispro 100 UNIT/ML 3 ML VIAL SUBCUT ×2 (17:00→21:53)
[2020-05-07 21:18] LABS: Glucose, Whole Blood 153 mg/dL (60-115)
[2020-05-07] MEDS: Tamsulosin HCL 0.4 MG CAPSULE PO (21:54)
[2020-05-08] VITALS (8 sets, daily range): BP systolic 115–142; BP diastolic 58–75; PULSE 77–95; RESP 18; TEMP 36.1–36.6; O2SAT 92–96
[2020-05-08] MEDS: Piperacillin Sodium/Tazobactam 3.375 GM in 0.9 % Sodium Chloride 50 ML IV ×4 (04:13→23:34)
[2020-05-08 08:26] LABS: Glucose, Whole Blood 98 mg/dL (60-115)
--- NOTE | 2020-05-08 11:02 | P.PNIM_ITS ---
Subjective Subjective Date of Service: 05/08/20 Interval History: c/o foot pain no chest pain no dyspnea Physical Exam Vital Signs: Vital Signs: Last Vital Signs Temp 97.3 F 05/08/20 08:00 Pulse 86 05/08/20 08:00 Resp 18 05/08/20 08:00 BP 140/67 H 05/08/20 08:00 Pulse Ox 96 05/08/20 08:00 Body Mass Index 26.6 Gen: in no acute distress HEENT: sclera anicteric, moist mucus membranes Neck: supple Lungs: no respiratory distress, auscultation deferred due to COVID-19 Heart: normal peripheral pulses Abd: soft, non-tender, non-distended Ext: no cyanosis, clubbing, or edema Skin: warm/well-perfused, multiple ulcers bilateral feet Neuro: alert and oriented x3, no focal findings Psych: appropriate affect Objective Data Current Medications Generic Name Dose Route Start Last Admin Trade Name Freq PRN Reason Stop Dose Admin Acetaminophen 650 mg 05/02/20 19:11 05/05/20 12:46 Acetaminophen 325 Mg Tablet PO 650 mg Q6H PRN Administration Pain, Mild (Pain Scale 1-3) Albuterol Sulfate 2 puff 05/02/20 19:11 Albuterol Sulfate 90 Mcg 8 Gm Inhaler INHALE Q4H PRN Shortness Of Breath Or Wheezing Amlodipine Besylate 5 mg 05/03/20 09:00 05/07/20 08:08 Amlodipine Besylate 5 Mg Tablet PO 5 mg DAILY RENETTA Administration Protocol Aspirin 81 mg 05/03/20 09:00 05/07/20 08:08 Aspirin Enteric Coated 81 Mg Tablet. PO 81 mg DAILY RENETTA Administration Atorvastatin Calcium 80 mg 05/03/20 09:00 05/07/20 08:08 Atorvastatin Calcium 80 Mg Tablet PO 80 mg DAILY RENETTA Administration Brimonidine Tartrate 1 drop 05/02/20 21:00 05/08/20 10:11 Brimonidine Tartrate 0.2% Oph 5 Ml Bottle EYE-BOTH Not Given TID [facility] Clopidogrel Bisulfate 75 mg 05/03/20 09:00 05/07/20 08:07 Clopidogrel Bisulfate 75 Mg Tablet PO 75 mg DAILY RENETTA Administration Finasteride 5 mg 05/03/20 09:00 05/07/20 08:08 Finasteride 5 Mg Tablet PO 5 mg DAILY RENETTA Administration Fluticasone Propionate 2 spray 05/03/20 09:00 05/07/20 08:09 Fluticasone Propionate Nasal 16 Gm [place] NOSTRIL-B 2 spray DAILY RENETTA Administration Heparin Sodium (Porcine) 5,000 unit 05/02/20 19:30 05/08/20 10:11 Heparin Sodium,Porcine 5,000 Unit/Ml Vial SUBCUT Not Given Q12H RENETTA Vancomycin HCl 750 mg/ 275 mls @ 183.333 mls/hr 05/03/20 13:00 05/07/20 14:58 Vancomycin HCl 500 mg/ Sodium IV Infused Chloride Q24H [facility] Infusion Piperacillin Sod/Tazobactam 50 mls @ 100 mls/hr 05/06/20 16:00 05/08/20 04:43 Sod 3.375 gm/ Sodium Chloride IV Infused Q6H [facility] Infusion Insulin Human Lispro 0 unit 05/03/20 20:13 05/08/20 08:47 Insulin Lispro 100 Unit/Ml 3 Ml Vial SUBCUT Not Given QIDACHS [facility] Protocol Multivitamins/Vitamin C 1 tab 05/03/20 09:00 05/07/20 08:08 Multivitamin Tablet PO 1 tab DAILY [facility] Administration Ondansetron HCl 4 mg 05/02/20 19:11 Ondansetron Hcl 4 Mg/2 Ml Vial IVPUSH Q8H PRN Nausea and Vomiting Pharmacy Consult 1 each 05/02/20 19:14 Consult Rx Vancomycin Dosing MISCELLANE DAILY PRN Consult order Sodium Chloride 3 ml 05/03/20 00:00 05/07/20 23:07 0.9 % Sodium Chloride Flush 3 Ml Syringe IVFLUSH 3 ml QSHIFT [facility] Administration Tamsulosin HCl 0.4 mg 05/02/20 21:00 05/07/20 21:54 Tamsulosin Hcl 0.4 Mg Capsule PO 0.4 mg BEDTIME RENETTA Administration Labs CBC & Chem 7: 05/07/20 05:33 05/07/20 05:33 Labs: Laboratory Results - last 24 hr 05/07/20 05/07/20 05/07/20 11:23 13:23 16:43 PT 13.0 INR 1.1 APTT 42.4 H POC Glucose 132 H 153 H 05/07/20 05/08/20 20:30 08:19 PT INR APTT POC Glucose 153 H 98 Microbiology Microbiology Results: Microbiology 05/02/20 11:33 Blood - Venous Blood Culture - Final No growth after 5 days. 05/02/20 11:53 Blood - Venous Blood Culture - Final Coag negative Staphylococcus 05/02/20 16:17 Ankle Left Gram Stain - Final 05/02/20 16:17 Ankle Left Routine Culture - Final Escherichia coli 05/02/20 19:27 Urine clean catch - Clean Catch Midstream Urine Culture - Final Assessment and Plan (1) Open wnd foot-complicated: Status: Acute Assessment and Plan: hospital d#7 74yo M with DM2 admitted with concern of infected bilateral diabetic foot ulcers resolving COVID-19 infection (admitted to [facility] 04/23-04/26/20) # diabetic foot infection with ulcers - pip/norm + vanco d#7 - ID + Vasc Surg following. LLE angiogram today; may require BKA for definitive treatment. # COVID-19 infection - asymptomatic, tested positive 05/02/20 # DM2 with am hypoglycemia - d/c'ed Lantus # HTN - continue amlodipine # PVD - continue clopidogrel + statin # urinary retention - continue finasteride + tamsulosin, Gaytan in place # VTE ppx - UFH # dispo - pending surgical intervention
--- NOTE | 2020-05-08 11:05 | W.PM.OPN ---
Operative Note Operative Note Date of Service: 05/08/20 Narrative: Angiogram report from [facility] Preoperative diagnosis: Peripheral arterial disease of left lower extremity Postoperative diagnosis: Same Procedure: 1. Ultrasound-guided right common femoral access 2. Aortogram with bilateral lower extremity runoff 3. Plasty of left popliteal 4. Plasty of left peroneal Surgeon:Bird Anderson M.D. Hydroelectric Station Operator Chief:None Anesthesia: Local with moderate conscious sedation for a total of 54minutes, performed by ia Specimens:none Drains:none Estimated blood loss:minimal Indications: 74-year-old diabetic gentleman with bilateral nonhealing ulcer. Left is significantly worse than right. On noninvasive testing he was noted to have arterial stenosis in the distal SFA popliteal and below-knee vessels. He now presents for endovascular intervention. Risks benefits complications were discussed in detail with the patient. He understood and consented. Procedure in detail: Patient was brought to the angiography suite prior to which a time-out was called for patient identification and site verification. Bilateral groins were prepped and draped in the standard surgical fashion. Under ultrasound guidance right common femoral was punctured with micro puncture needle and wire. Subsequently a precision 4 [place] sheath was then placed. [email or web address] wire was advanced to the level of the aorta. 4 [place] Flush catheter was brought up and parked at the level of the renal arteries. Aortogram was then undertaken. Catheter was brought down to the level of the iliac bifurcation. Iliacs were subsequently imaged. Catheter was then brought in up and over to the left side SFA. Runoff study was then undertaken. At this point 4000 units of systemic heparin was administered. After 5 minutes of circulation time Glidewire to rajiv was used to traverse the popliteal into the peroneal artery. Once in position an up and over 6 [place] sheath was then placed. After 5 minutes of circulation time we plasty the left peroneal with a 3 x 40 balloon pre areas once this was accomplished we upsized to a 4 x 40 drug coated balloon. This was brought into position in under 3 minutes and then subsequently insufflated for 3 minutes. We then turned our attention to the popliteal P2 segment and P1 segment which appear to be stenotic. This was plasty did with a 5 x 40 balloon. We then brought in a 5 x 40 drug coated balloon this was brought into position and under 3 minutes and insufflated for a total of 3 minutes in duration. Once this was accomplished completion angiogram demonstrated excellent result. Right lower extremity study was then undertaken. StarClose closure device was then deployed. Patient tolerated the procedure well returned to recovery with stable vitals. Interpretation of films: 1. Ultrasound demonstrates appropriate femoral puncture. Image of which was saved. 2. Aortogram demonstrates appropriate caliber aorta. Minimal disease. Appropriate take-off of the renals. 3. Iliac images demonstrate normal caliber aorta no significant stenosis. 4. Left lower extremity vessels demonstrate good flow through the common femoral profunda femorals all the way down through the SFA behind knee popliteal did demonstrated some stenosis the origin of the peroneal had some high-grade stenosis with good flow all the way down to the foot. This was the only 1 vessel below-knee runoff. 5. Right lower extremity demonstrated good flow through the profunda and SFA. Behind knee popliteal had no significant disease. Below-knee vessel was only pro Raheel which was somewhat diminutive and did terminate at the level of the ankle. There was some collateral flow below the ankle but no arch was noted. Conclusion: 1. Successful plasty of left peroneal and popliteal. The patient will require 6 months of aspirin and Plavix. This note is constructed using voice recognition software. While every effort has been made to ensure accuracy, human resources services specialist errors may have been included. Thank you for allowing me to participate in the care of your patient. Yours sincerely, Bird Anderson MD, FACS, R.P.V.I.
[2020-05-08] MEDS: iohexoL 300 MG/ML 100 ML INFUS..BTL 150 ML IV (11:18)
[2020-05-08] MEDS: Lidocaine HCl 1 % MPF 5 ML VIAL 10 ML SUBCUT (11:19)
[2020-05-08 12:38] LABS: Glucose, Whole Blood 87 mg/dL (60-115)
[2020-05-08] MEDS: Clopidogrel Bisulfate 75 MG TABLET PO (12:45)
[2020-05-08] MEDS: Atorvastatin Calcium 80 MG TABLET PO (12:45)
[2020-05-08] MEDS: 0.9 % Sodium Chloride Flush 3 ML SYRINGE IVFLUSH ×3 (12:45→23:34)
[2020-05-08] MEDS: Multivitamin TABLET 1 TAB PO (12:45)
[2020-05-08] MEDS: Aspirin Enteric Coated 81 MG TABLET.DR PO (12:45)
[2020-05-08] MEDS: amLODIPine Besylate 5 MG TABLET PO (12:46)
[2020-05-08] MEDS: Finasteride 5 MG TABLET PO (12:46)
[2020-05-08 13:33] LABS: Vancomycin Trough 18.9 mcg/mL (10.0-20.0)
--- NOTE | 2020-05-08 13:35 | MHC.CM.PN ---
CM spoke with patient's son Alberto [phone] who speaks little Polish and asked if I would speak with Brant his [employer] [phone]. ASHLEY spoke with Brant by phone who reports patient is wheel chair bound and does not amb. Patient lives alone and has 4 hrs daily of [employer] services with [facility]. Brant reports he does go back at night to help patient with his needs. Patient is dependent for care and are asking for increased [employer] hours. Instructed CM will suggest to [facility] if patient goes home after discharge. Also informed could refer to [facility]. Also instructed we will need to see how patient does with surgery and might need STR post discharge. CM will continue to follow patient for discharge needs.
[2020-05-08] MEDS: vancomycin HCL 1,000 MG in 0.9 % Sodium Chloride 250 ML 270 MG IV (13:55)
[2020-05-08 16:11] LABS: Glucose, Whole Blood 150 mg/dL (60-115)
[2020-05-08] MEDS: Heparin Sodium,Porcine 5,000 UNIT/ML VIAL 5000 UNIT SUBCUT (18:12)
[2020-05-08 19:56] LABS: Glucose, Whole Blood 226 mg/dL (60-115)
[2020-05-08] MEDS: Tamsulosin HCL 0.4 MG CAPSULE PO (20:10)
[2020-05-08] MEDS: Insulin Lispro 100 UNIT/ML 3 ML VIAL SUBCUT (20:10)
[2020-05-08] MEDS: Brimonidine Tartrate 0.2% Oph 5 ML BOTTLE 1 DROP EYE-BOTH (20:41)
[2020-05-09 03:42] VITALS: BP 127/60; PULSE 80; RESP 18; TEMP 36.8; O2SAT 96
[2020-05-09] MEDS: Piperacillin Sodium/Tazobactam 3.375 GM in 0.9 % Sodium Chloride 50 ML IV ×3 (05:11→17:44)
[2020-05-09 06:15] LABS: MANUAL DIFF FLAG NO
[2020-05-09 06:21] LABS: Basophils Percent Auto 0.7 % (0-2); Eosinophils Absolute Auto 0.1 X10*3/uL (0.0-0.4); Eosinophils Percent Auto 3.1 % (0-4); Hematocrit 27.4 % (42-52); Hemoglobin 8.6 g/dl (14.0-18.0); Imm Gran Abs Auto 0.02 X10*3/uL (0.00-0.03); Imm Gran Pct Auto 0.4 % (0.0-0.4); Lymphocytes Absolute Auto 0.8 X10*3/uL (1.2-4.9); Lymphocytes Percent Auto 17.4 % (20-40); Mean Corpuscular HGB Conc 31.4 g/dl (31.0-36.0); Mean Corpuscular Hemoglobin 28.4 pg (27.0-33.0); Mean Corpuscular Volume 90.4 fL (80-98); Mean Platelet Volume 8.8 fL (9.4-12.4); Monocytes Absolute Auto 0.4 X10*3/uL (0.1-1.2); Monocytes Percent Auto 9.5 % (2-11); Neutrophils Absolute Auto 3.1 X10*3/uL (2.0-8.3); Neutrophils Percent Auto 68.9 % (45-73); Platelet Count 337 X10*3/uL (160-400); Red Blood Count 3.03 X10*6/uL (4.60-5.80); Red Cell Distribution Width 14.6 % (11.0-16.0); White Blood Count 4.5 X10*3/uL (4.8-10.8)
[2020-05-09 06:46] LABS: Estimated Average Glucose 203 mg/dL; Hemoglobin A1c % 8.7 %
[2020-05-09 07:01] VITALS: BP 123/59; PULSE 96; RESP 18; TEMP 36; O2SAT 95
[2020-05-09 07:16] LABS: Glucose, Whole Blood 169 mg/dL (60-115)
[2020-05-09 07:20] LABS: Anion Gap 11 (12-20); Blood Urea Nitrogen 12 mg/dL (9-16); C Reactive Protein 6.57 mg/dL (< or = 0.50); Calcium 7.2 mg/dL (8.4-10.2); Carbon Dioxide 29 mmol/L (22-29); Chloride 104 mmol/L (96-108); Creatinine Clr Calc Pharmacy 49.1; Estimated Glomerular Filt Rate > 60; Glucose Random 220 mg/dL (60-115); Potassium 4.5 mmol/L (3.3-5.1); Sodium 139 mmol/L (135-145)
[2020-05-09 08:03] LABS: Erythrocyte Sedimentation Rate 100 MM/HR (0-15)
[2020-05-09] MEDS: Aspirin Enteric Coated 81 MG TABLET.DR PO (08:41)
[2020-05-09] MEDS: amLODIPine Besylate 5 MG TABLET PO (08:41)
[2020-05-09] MEDS: Clopidogrel Bisulfate 75 MG TABLET PO (08:41)
[2020-05-09] MEDS: Multivitamin TABLET 1 TAB PO (08:41)
[2020-05-09] MEDS: Atorvastatin Calcium 80 MG TABLET PO (08:41)
[2020-05-09] MEDS: Finasteride 5 MG TABLET PO (08:42)
[2020-05-09] MEDS: Insulin Lispro 100 UNIT/ML 3 ML VIAL SUBCUT ×4 (08:42→20:14)
[2020-05-09] MEDS: Heparin Sodium,Porcine 5,000 UNIT/ML VIAL 5000 UNIT SUBCUT ×2 (08:42→19:52)
[2020-05-09] MEDS: 0.9 % Sodium Chloride Flush 3 ML SYRINGE IVFLUSH ×2 (08:42→16:59)
--- NOTE | 2020-05-09 10:04 | P.PNIM_ITS ---
Subjective Subjective Date of Service: 05/09/20 Interval History: s/p angioplasty yesterday ongoing L foot pain no chest pain or dyspnea no fever Physical Exam Vital Signs: Vital Signs: Last Vital Signs Temp 96.8 F 05/09/20 07:01 Pulse 96 05/09/20 07:01 Resp 18 05/09/20 07:01 BP 123/59 L 05/09/20 07:01 Pulse Ox 95 05/09/20 07:01 Body Mass Index 26.6 Gen: in no acute distress HEENT: sclera anicteric, moist mucus membranes Neck: supple Lungs: no respiratory distress, auscultation deferred due to COVID-19 Heart: normal peripheral pulses Abd: soft, non-tender, non-distended Ext: no cyanosis, clubbing, or edema Skin: warm/well-perfused, multiple ulcers bilateral feet Neuro: alert and oriented x3, no focal findings Psych: appropriate affect Objective Data Current Medications Generic Name Dose Route Start Last Admin Trade Name Freq PRN Reason Stop Dose Admin Acetaminophen 650 mg 05/02/20 19:11 05/05/20 12:46 Acetaminophen 325 Mg Tablet PO 650 mg Q6H PRN Administration Pain, Mild (Pain Scale 1-3) Albuterol Sulfate 2 puff 05/02/20 19:11 Albuterol Sulfate 90 Mcg 8 Gm Inhaler INHALE Q4H PRN Shortness Of Breath Or Wheezing Amlodipine Besylate 5 mg 05/03/20 09:00 05/09/20 08:41 Amlodipine Besylate 5 Mg Tablet PO 5 mg DAILY [facility] Administration Protocol Aspirin 81 mg 05/03/20 09:00 05/09/20 08:41 Aspirin Enteric Coated 81 Mg Tablet. PO 81 mg DAILY [facility] Administration Atorvastatin Calcium 80 mg 05/03/20 09:00 05/09/20 08:41 Atorvastatin Calcium 80 Mg Tablet PO 80 mg DAILY [facility] Administration Brimonidine Tartrate 1 drop 05/02/20 21:00 05/09/20 08:43 Brimonidine Tartrate 0.2% Oph 5 Ml Bottle EYE-BOTH Not Given TID [facility] Clopidogrel Bisulfate 75 mg 05/03/20 09:00 05/09/20 08:41 Clopidogrel Bisulfate 75 Mg Tablet PO 75 mg DAILY [facility] Administration Finasteride 5 mg 05/03/20 09:00 05/09/20 08:42 Finasteride 5 Mg Tablet PO 5 mg DAILY [facility] Administration Fluticasone Propionate 2 spray 05/03/20 09:00 05/09/20 08:43 Fluticasone Propionate Nasal 16 Gm [place] NOSTRIL-B Not Given DAILY [facility] Heparin Sodium (Porcine) 5,000 unit 05/02/20 19:30 05/09/20 08:42 Heparin Sodium,Porcine 5,000 Unit/Ml Vial SUBCUT 5,000 unit Q12H [facility] Administration Vancomycin HCl 1,000 mg/ 270 mls @ 270 mls/hr 05/08/20 14:00 05/08/20 14:55 Sodium Chloride IV Infused Q24H [facility] Infusion Piperacillin Sod/Tazobactam 50 mls @ 100 mls/hr 05/08/20 18:00 05/09/20 05:51 Sod 3.375 gm/ Sodium Chloride IV Infused Q6H [facility] Infusion Insulin Human Lispro 0 unit 05/03/20 20:13 05/09/20 08:42 Insulin Lispro 100 Unit/Ml 3 Ml Vial SUBCUT 2 unit QIDACHS [facility] Administration Protocol Multivitamins/Vitamin C 1 tab 05/03/20 09:00 05/09/20 08:41 Multivitamin Tablet PO 1 tab DAILY [facility] Administration Ondansetron HCl 4 mg 05/02/20 19:11 Ondansetron Hcl 4 Mg/2 Ml Vial IVPUSH Q8H PRN Nausea and Vomiting Pharmacy Consult 1 each 05/02/20 19:14 Consult Rx Vancomycin Dosing MISCELLANE DAILY PRN Consult order Sodium Chloride 3 ml 05/03/20 00:00 05/09/20 08:42 0.9 % Sodium Chloride Flush 3 Ml Syringe IVFLUSH 3 ml QSHIFT [facility] Administration Tamsulosin HCl 0.4 mg 05/02/20 21:00 05/08/20 20:10 Tamsulosin Hcl 0.4 Mg Capsule PO 0.4 mg BEDTIME [facility] Administration Labs CBC & Chem 7: 05/09/20 05:34 05/09/20 05:34 Labs: Laboratory Results - last 24 hr 05/08/20 05/08/20 05/08/20 11:58 12:22 16:05 WBC RBC Hgb Hct MCV MCH MCHC RDW Plt Count MPV Immature Gran % (Auto) Neut % (Auto) Lymph % (Auto) Meigs % (Auto) Eos % (Auto) Baso % (Auto) Lymph # (Auto) Meigs # (Auto) Eos # (Auto) Baso # (Auto) Abs Immat Gran (auto) Absolute Neuts (auto) Absolute Nucleated RBC Nucleated RBC % (auto) ESR Sodium Potassium Chloride Carbon Dioxide Anion Gap BUN Creatinine Estim Creat Clear Calc Estimated GFR POC Glucose 87 150 H Random Glucose Estimat Average Glucose Hemoglobin A1c % Calcium C-Reactive Protein Vancomycin Trough 18.9 05/08/20 05/09/20 05/09/20 19:52 05:34 05:34 WBC 4.5 L RBC 3.03 L Hgb 8.6 L Hct 27.4 L MCV 90.4 MCH 28.4 MCHC 31.4 RDW 14.6 Plt Count 337 MPV 8.8 L Immature Gran % (Auto) 0.4 Neut % (Auto) 68.9 Lymph % (Auto) 17.4 L Meigs % (Auto) 9.5 Eos % (Auto) 3.1 Baso % (Auto) 0.7 Lymph # (Auto) 0.8 L Meigs # (Auto) 0.4 Eos # (Auto) 0.1 Baso # (Auto) 0.0 Abs Immat Gran (auto) 0.02 Absolute Neuts (auto) 3.1 Absolute Nucleated RBC 0.000 Nucleated RBC % (auto) 0.0 ESR Sodium Potassium Chloride Carbon Dioxide Anion Gap BUN Creatinine Estim Creat Clear Calc Estimated GFR POC Glucose 226 H Random Glucose Estimat Average Glucose 203 Hemoglobin A1c % 8.7 Calcium C-Reactive Protein Vancomycin Trough 05/09/20 05/09/20 05/09/20 05:34 05:34 07:01 WBC RBC Hgb Hct MCV MCH MCHC RDW Plt Count MPV Immature Gran % (Auto) Neut % (Auto) Lymph % (Auto) Meigs % (Auto) Eos % (Auto) Baso % (Auto) Lymph # (Auto) Meigs # (Auto) Eos # (Auto) Baso # (Auto) Abs Immat Gran (auto) Absolute Neuts (auto) Absolute Nucleated RBC Nucleated RBC % (auto) ESR 100 H Sodium 139 Potassium 4.5 Chloride 104 Carbon Dioxide 29 Anion Gap 11 L BUN 12 Creatinine 1.07 Estim Creat Clear Calc 49.1 Estimated GFR > 60 POC Glucose 169 H Random Glucose 220 H D Estimat Average Glucose Hemoglobin A1c % Calcium 7.2 L C-Reactive Protein 6.57 H Vancomycin Trough Microbiology Microbiology Results: Microbiology 05/02/20 11:33 Blood - Venous Blood Culture - Final No growth after 5 days. 05/02/20 11:53 Blood - Venous Blood Culture - Final Coag negative Staphylococcus 05/02/20 16:17 Ankle Left Gram Stain - Final 05/02/20 16:17 Ankle Left Routine Culture - Final Escherichia coli 05/02/20 19:27 Urine clean catch - Clean Catch Midstream Urine Culture - Final Assessment and Plan (1) Open wnd foot-complicated: Status: Acute Assessment and Plan: hospital d#8 74yo M with DM2 admitted with concern of infected bilateral diabetic foot ulcers resolving COVID-19 infection (admitted to [facility] 04/23-04/26/20) # diabetic foot infection with ulcers # peripheral arterial disease - pip/norm + vanco d#8 - POD #1 arterioplasty of left peroneal and popliteal arteries. DAPT + statin. # COVID-19 infection - resolving, diagnosed 04/23/20 # DM2 with am hypoglycemia, A1c 8.7 - d/c'ed Gabrieltus # HTN - continue amlodipine # urinary retention - continue finasteride + tamsulosin, Gaytan in place # VTE ppx - UFH # dispo - likely will need SNF
[2020-05-09 11:05] VITALS: BP 104/50; PULSE 78; RESP 19; TEMP 36; O2SAT 99
[2020-05-09 11:16] LABS: Glucose, Whole Blood 175 mg/dL (60-115)
[2020-05-09] MEDS: vancomycin HCL 1,000 MG in 0.9 % Sodium Chloride 250 ML 270 MG IV (14:02)
[2020-05-09] MEDS: Brimonidine Tartrate 0.2% Oph 5 ML BOTTLE 1 DROP EYE-BOTH ×2 (14:03→19:53)
[2020-05-09 15:21] VITALS: BP 136/65; PULSE 92; RESP 20; TEMP 36.3; O2SAT 98
[2020-05-09 16:28] LABS: Glucose, Whole Blood 217 mg/dL (60-115)
--- NOTE | 2020-05-09 16:46 | PM.PNGS ---
Subjective Subjective Date of Service: 05/09/20 Interval history: Patient denies any new complaints, denies left foot pain Physical Exam Vital Signs: Vital Signs: Last Vital Signs Temp 97.4 F 05/09/20 15:21 Pulse 92 05/09/20 15:21 Resp 20 05/09/20 15:21 BP 136/65 05/09/20 15:21 Pulse Ox 98 05/09/20 15:21 Body Mass Index 26.6 Const: General: cooperative, healthy appearing and no acute distress Resp: Effort & Inspection: normal respiratory effort, no stridor and not tachypneic Auscultation: clear to auscultation bilaterally and no wheezes Cardio: Jugular venous distension: no JVD Skin: General skin exam: no rashes or lesions noted Extrem: Other: Left heel ulcer with necrotic skin and purulent discharge lifting from skin margins. Foot otherwise warm with brisk capillary refill Ankle/foot/toe images: 1. Site of left heel ulcer 2. Site of left heel ulcer Progress Note: A&P Assessment and plan (1) Open wnd foot-complicated: Status: Acute Assessment and Plan: Patient is status post angioplasty with stent placement performed by Dr. Anderson with good results. Foot is now warm with brisk capillary refill. Patient is ready for debridement of the left heel ulcer. I explained the procedure, alternatives, and risks he consents to the procedure. He will be added onto the OR schedule for tomorrow. NPO after midnight. Fall Risk Details Current Medications: Current Medications Generic Name Dose Route Start Last Admin Trade Name Lvq PRN Reason Stop Dose Admin Acetaminophen 650 mg 05/02/20 19:11 05/05/20 12:46 Acetaminophen 325 Mg Tablet PO 650 mg Q6H PRN Administration Pain, Mild (Pain Scale 1-3) Albuterol Sulfate 2 puff 05/02/20 19:11 Albuterol Sulfate 90 Mcg 8 Gm Inhaler INHALE Q4H PRN Shortness Of Breath Or Wheezing Amlodipine Besylate 5 mg 05/03/20 09:00 05/09/20 08:41 Amlodipine Besylate 5 Mg Tablet PO 5 mg DAILY [facility] Administration Protocol Aspirin 81 mg 05/03/20 09:00 05/09/20 08:41 Aspirin Enteric Coated 81 Mg Tablet. PO 81 mg DAILY [facility] Administration Atorvastatin Calcium 80 mg 05/03/20 09:00 05/09/20 08:41 Atorvastatin Calcium 80 Mg Tablet PO 80 mg DAILY [facility] Administration Brimonidine Tartrate 1 drop 05/02/20 21:00 05/09/20 14:03 Brimonidine Tartrate 0.2% Oph 5 Ml Bottle EYE-BOTH 1 drop TID [facility] Administration Clopidogrel Bisulfate 75 mg 05/03/20 09:00 05/09/20 08:41 Clopidogrel Bisulfate 75 Mg Tablet PO 75 mg DAILY [facility] Administration Finasteride 5 mg 05/03/20 09:00 05/09/20 08:42 Finasteride 5 Mg Tablet PO 5 mg DAILY [facility] Administration Fluticasone Propionate 2 spray 05/03/20 09:00 05/09/20 08:43 Fluticasone Propionate Nasal 16 Gm [place] NOSTRIL-B Not Given DAILY [facility] Heparin Sodium (Porcine) 5,000 unit 05/02/20 19:30 05/09/20 08:42 Heparin Sodium,Porcine 5,000 Unit/Ml Vial SUBCUT 5,000 unit Q12H [facility] Administration Vancomycin HCl 1,000 mg/ 270 mls @ 270 mls/hr 05/08/20 14:00 05/09/20 14:02 Sodium Chloride IV 270 mls/hr Q24H [facility] Administration Piperacillin Sod/Tazobactam 50 mls @ 100 mls/hr 05/08/20 18:00 05/09/20 14:03 Sod 3.375 gm/ Sodium Chloride IV Infused Q6H [facility] Infusion Cefazolin Sodium/Dextrose 2 gm in 50 mls @ 100 mls/hr 05/10/20 12:00 Ancef IV 05/10/20 12:29 PREOP ONE Insulin Human Lispro 0 unit 05/03/20 20:13 05/09/20 12:10 Insulin Lispro 100 Unit/Ml 3 Ml Vial SUBCUT 2 unit QIDACHS [facility] Administration Protocol Multivitamins/Vitamin C 1 tab 05/03/20 09:00 05/09/20 08:41 Multivitamin Tablet PO 1 tab DAILY [facility] Administration Ondansetron HCl 4 mg 05/02/20 19:11 Ondansetron Hcl 4 Mg/2 Ml Vial IVPUSH Q8H PRN Nausea and Vomiting Pharmacy Consult 1 each 05/02/20 19:14 Consult Rx Vancomycin Dosing MISCELLANE DAILY PRN Consult order Sodium Chloride 3 ml 05/03/20 00:00 05/09/20 08:42 0.9 % Sodium Chloride Flush 3 Ml Syringe IVFLUSH 3 ml QSHIFT [facility] Administration Tamsulosin HCl 0.4 mg 05/02/20 21:00 05/08/20 20:10 Tamsulosin Hcl 0.4 Mg Capsule PO 0.4 mg BEDTIME [facility] Administration Time Spent With Patient Time: Total time spent is greater than 50% in coordination of care (as documented) at patient's floor/unit and/or counseling patient: Time with patient: 15 - 24 minutes
[2020-05-09] MEDS: Tamsulosin HCL 0.4 MG CAPSULE PO (19:53)
[2020-05-09 20:00] VITALS: BP 145/65; PULSE 94; RESP 18; TEMP 36.7; O2SAT 94
[2020-05-09 20:31] LABS: Glucose, Whole Blood 179 mg/dL (60-115)
[2020-05-10] VITALS (10 sets, daily range): BP systolic 110–158; BP diastolic 55–77; PULSE 81–99; RESP 16–20; TEMP 36.2–37.4; O2SAT 93–97
[2020-05-10] MEDS: 0.9 % Sodium Chloride Flush 3 ML SYRINGE IVFLUSH ×4 (01:09→22:04)
[2020-05-10] MEDS: Piperacillin Sodium/Tazobactam 3.375 GM in 0.9 % Sodium Chloride 50 ML IV ×4 (01:10→16:41)
[2020-05-10] MEDS: Heparin Sodium,Porcine 5,000 UNIT/ML VIAL 5000 UNIT SUBCUT ×2 (06:16→22:01)
--- NOTE | 2020-05-10 08:03 | P.PNVS_ITS ---
Subjective Subjective Date of Service: 05/10/20 Patient reports: no new complaints and feels better Interval history: Patient seen examined. No events over the past day. He has done well status post endovascular intervention. No lower extremity complaints. No groin hematoma. He now presents for routine postprocedure follow-up. Physical Exam Vital Signs: Vital Signs: Last Vital Signs Temp 99.3 F 05/10/20 03:46 Pulse 87 05/10/20 03:46 Resp 18 05/10/20 03:46 BP 112/57 L 05/10/20 03:46 Pulse Ox 93 05/10/20 03:46 Body Mass Index 26.6 Const: General: cooperative, healthy appearing and comfortable Orientation/consciousness: oriented to person, oriented to place and oriented to time HENMT: Head: Yes normal to inspection Neck: Neck: Yes normal visual inspection Carotids: no bruits Chest: Chest palpation & inspection: normal inspection of the chest Resp: Effort & Inspection: normal respiratory effort and able to speak in complete sentences Auscultation: clear to auscultation bilaterally, no crac kles, no rales, no rhonchi and no wheezes Cardio: Rate: regular rate Rhythm: regular rhythm Heart sounds: S1 normal heart sound present and S2 normal heart sound present Bruits: no carotid bruits Peripheral pulses: dorsalis pedis present (Bilateral signals only) GI: Inspection: Yes normal to inspection Skin: Wounds: wounds noted (Left heel, right ankle) Hair: normal Neuro: General: oriented to person, oriented to place and oriented to time Cranial nerves: Yes CN's II-XII intact bilaterally and Yes Normal hearing present Cognition (Neuro): normal cognition Motor exam (neuro): 5/5 motor strength present throughout Extrem: Other: venous exam: No significant superficial varicosities or spider telangiectasias, minimal edema General: No clubbing, No cyanosis and No edema Psych: Appearance: grossly normal Mental Status: mental status grossly normal Speech and movement: Normal speech and movement present Progress Note: A&P Assessment and plan (1) PVD (peripheral vascular disease): Problem details: 05/08/2020 - left popliteal and peroneal plasty Status: Acute Assessment and Plan: Patient is doing well from endovascular intervention. He is scheduled for debridement for today. Hopefully this will clear the if acute infection. Will plan for surveillance follow-up as outpatient. I did discuss with him and the family that even though he is undergoing all of this he is at high risk for amputation. They demonstrated a clear understanding. Data Recovery Planner was present at the time of discussion. Continue antibiotics. Wound care per General surgery. Thank you for allowing us to assist in his care. The patient had an opportunity to ask questions regarding the treatment plan. All questions were answered. Imaging studies, laboratory studies and physical exam results were discussed and reviewed in detail. No major barriers to understanding were identified. The patient expressed understanding and agreement with the above treatment plan. The patient is aware they should contact our office by phone for worsening of the current condition or the appearance of new symptoms. Thank you for allowing me to participate in the vascular care of this patient. If you have any questions or concerns regarding the treatment for the above condition please do not hesitate to contact me. The office telephone contact is [phone]. This note is constructed using voice recognition software. While every effort has been made to ensure accuracy, integrity assessor errors may have been included. Thank you for allowing me to participate in the care of your patient. Yours sincerely, Bird Anderson MD, FACS, R.P.V.I. Fall Risk Details Current Medications: Current Medications Generic Name Dose Route Start Last Admin Trade Name Freq PRN Reason Stop Dose Admin Acetaminophen 650 mg 05/02/20 19:11 05/05/20 12:46 Acetaminophen 325 Mg Tablet PO 650 mg Q6H PRN Administration Pain, Mild (Pain Scale 1-3) Albuterol Sulfate 2 puff 05/02/20 19:11 Albuterol Sulfate 90 Mcg 8 Gm Inhaler INHALE Q4H PRN Shortness Of Breath Or Wheezing Amlodipine Besylate 5 mg 05/03/20 09:00 05/09/20 08:41 Amlodipine Besylate 5 Mg Tablet PO 5 mg DAILY [facility] Administration Protocol Aspirin 81 mg 05/03/20 09:00 05/09/20 08:41 Aspirin Enteric Coated 81 Mg Tablet. PO 81 mg DAILY [facility] Administration Atorvastatin Calcium 80 mg 05/03/20 09:00 05/09/20 08:41 Atorvastatin Calcium 80 Mg Tablet PO 80 mg DAILY [facility] Administration Brimonidine Tartrate 1 drop 05/02/20 21:00 05/09/20 19:53 Brimonidine Tartrate 0.2% Oph 5 Ml Bottle EYE-BOTH 1 drop TID [facility] Administration Clopidogrel Bisulfate 75 mg 05/03/20 09:00 05/09/20 08:41 Clopidogrel Bisulfate 75 Mg Tablet PO 75 mg DAILY [facility] Administration Finasteride 5 mg 05/03/20 09:00 05/09/20 08:42 Finasteride 5 Mg Tablet PO 5 mg DAILY [facility] Administration Fluticasone Propionate 2 spray 05/03/20 09:00 05/09/20 08:43 Fluticasone Propionate Nasal 16 Gm [place] NOSTRIL-B Not Given DAILY [facility] Heparin Sodium (Porcine) 5,000 unit 05/02/20 19:30 05/10/20 06:16 Heparin Sodium,Porcine 5,000 Unit/Ml Vial SUBCUT 5,000 unit Q12H [facility] Administration Vancomycin HCl 1,000 mg/ 270 mls @ 270 mls/hr 05/08/20 14:00 05/09/20 16:59 Sodium Chloride IV Infused Q24H [facility] Infusion Piperacillin Sod/Tazobactam 50 mls @ 100 mls/hr 05/08/20 18:00 05/10/20 06:57 Sod 3.375 gm/ Sodium Chloride IV Infused Q6H [facility] Infusion Cefazolin Sodium/Dextrose 2 gm in 50 mls @ 100 mls/hr 05/10/20 12:00 Ancef IV 05/10/20 12:29 PREOP ONE Insulin Human Lispro 0 unit 05/03/20 20:13 05/09/20 20:14 Insulin Lispro 100 Unit/Ml 3 Ml Vial SUBCUT [address] [facility] Administration Protocol Multivitamins/Vitamin C 1 tab 05/03/20 09:00 05/09/20 08:41 Multivitamin Tablet PO 1 tab DAILY [facility] Administration Ondansetron HCl 4 mg 05/02/20 19:11 Ondansetron Hcl 4 Mg/2 Ml Vial IVPUSH Q8H PRN Nausea and Vomiting Sodium Chloride 3 ml 05/03/20 00:00 05/10/20 01:09 0.9 % Sodium Chloride Flush 3 Ml Syringe IVFLUSH 3 ml QSHIFT [facility] Administration Tamsulosin HCl 0.4 mg 05/02/20 21:00 05/09/20 19:53 Tamsulosin Hcl 0.4 Mg Capsule PO 0.4 mg BEDTIME [facility] Administration Time Spent With Patient Time: Total time spent is greater than 50% in coordination of care (as documented) at patient's floor/unit and/or counseling patient: Time with patient: 15 - 24 minutes
[2020-05-10 09:32] LABS: Glucose, Whole Blood 244 mg/dL (60-115)
--- NOTE | 2020-05-10 10:14 | P.PNIM_ITS ---
Subjective Subjective Date of Service: 05/10/20 Interval History: c/o foot pain going to OR today no cough or dyspnea no chest pain Physical Exam Vital Signs: Vital Signs: Last Vital Signs Temp 97.8 F 05/10/20 08:00 Pulse 97 05/10/20 08:00 Resp 18 05/10/20 08:00 BP 128/68 05/10/20 08:00 Pulse Ox 96 05/10/20 08:00 Body Mass Index 26.6 Gen: in no acute distress HEENT: sclera anicteric, moist mucus membranes Neck: supple Lungs: no respiratory distress, auscultation deferred due to COVID-19 Heart: normal peripheral pulses Abd: soft, non-tender, non-distended Ext: no cyanosis, clubbing, or edema Skin: warm/well-perfused, L heel with necrotic ulcer Neuro: alert and oriented x3, no focal findings Psych: appropriate affect Objective Data Current Medications Generic Name Dose Route Start Last Admin Trade Name Freq PRN Reason Stop Dose Admin Acetaminophen 650 mg 05/02/20 19:11 05/05/20 12:46 Acetaminophen 325 Mg Tablet PO 650 mg Q6H PRN Administration Pain, Mild (Pain Scale 1-3) Albuterol Sulfate 2 puff 05/02/20 19:11 Albuterol Sulfate 90 Mcg 8 Gm Inhaler INHALE Q4H PRN Shortness Of Breath Or Wheezing Amlodipine Besylate 5 mg 05/03/20 09:00 05/09/20 08:41 Amlodipine Besylate 5 Mg Tablet PO 5 mg DAILY [facility] Administration Protocol Aspirin 81 mg 05/03/20 09:00 05/09/20 08:41 Aspirin Enteric Coated 81 Mg Tablet. PO 81 mg DAILY [facility] Administration Atorvastatin Calcium 80 mg 05/03/20 09:00 05/09/20 08:41 Atorvastatin Calcium 80 Mg Tablet PO 80 mg DAILY [facility] Administration Brimonidine Tartrate 1 drop 05/02/20 21:00 05/09/20 19:53 Brimonidine Tartrate 0.2% Oph 5 Ml Bottle EYE-BOTH 1 drop TID [facility] Administration Clopidogrel Bisulfate 75 mg 05/03/20 09:00 05/09/20 08:41 Clopidogrel Bisulfate 75 Mg Tablet PO 75 mg DAILY [facility] Administration Finasteride 5 mg 05/03/20 09:00 05/09/20 08:42 Finasteride 5 Mg Tablet PO 5 mg DAILY [facility] Administration Fluticasone Propionate 2 spray 05/03/20 09:00 05/09/20 08:43 Fluticasone Propionate Nasal 16 Gm [place] NOSTRIL-B Not Given DAILY [facility] Heparin Sodium (Porcine) 5,000 unit 05/02/20 19:30 05/10/20 06:16 Heparin Sodium,Porcine 5,000 Unit/Ml Vial SUBCUT 5,000 unit Q12H [facility] Administration Vancomycin HCl 1,000 mg/ 270 mls @ 270 mls/hr 05/08/20 14:00 05/09/20 16:59 Sodium Chloride IV Infused Q24H [facility] Infusion Piperacillin Sod/Tazobactam 50 mls @ 100 mls/hr 05/08/20 18:00 05/10/20 06:57 Sod 3.375 gm/ Sodium Chloride IV Infused Q6H [facility] Infusion Cefazolin Sodium/Dextrose 2 gm in 50 mls @ 100 mls/hr 05/10/20 12:00 Ancef IV 05/10/20 12:29 PREOP ONE Insulin Human Lispro 0 unit 05/03/20 20:13 05/10/20 08:53 Insulin Lispro 100 Unit/Ml 3 Ml Vial SUBCUT Not Given QIDACHS [facility] Protocol Multivitamins/Vitamin C 1 tab 05/03/20 09:00 05/09/20 08:41 Multivitamin Tablet PO 1 tab DAILY [facility] Administration Ondansetron HCl 4 mg 05/02/20 19:11 Ondansetron Hcl 4 Mg/2 Ml Vial IVPUSH Q8H PRN Nausea and Vomiting Sodium Chloride 3 ml 05/03/20 00:00 05/10/20 08:54 0.9 % Sodium Chloride Flush 3 Ml Syringe IVFLUSH 3 ml QSHIFT [facility] Administration Tamsulosin HCl 0.4 mg 05/02/20 21:00 05/09/20 19:53 Tamsulosin Hcl 0.4 Mg Capsule PO 0.4 mg BEDTIME [facility] Administration Labs CBC & Chem 7: 05/09/20 05:34 05/09/20 05:34 Labs: Laboratory Results - last 24 hr 05/09/20 05/09/20 05/09/20 11:04 16:16 20:02 POC Glucose 175 H 217 H 179 H 05/10/20 08:48 POC Glucose 244 H Microbiology Microbiology Results: Microbiology 05/02/20 11:33 Blood - Venous Blood Culture - Final No growth after 5 days. 05/02/20 11:53 Blood - Venous Blood Culture - Final Coag negative Staphylococcus 05/02/20 16:17 Ankle Left Gram Stain - Final 05/02/20 16:17 Ankle Left Routine Culture - Final Escherichia coli 05/02/20 19:27 Urine clean catch - Clean Catch Midstream Urine Culture - Final Assessment and Plan (1) Open wnd foot-complicated: Status: Acute Assessment and Plan: hospital d#9 74yo M with DM2 admitted with concern of infected bilateral diabetic foot ulcers resolving COVID-19 infection (admitted to [facility] 04/23-04/26/20) # diabetic foot infection with ulcers # peripheral arterial disease - pip/norm + vanco d#9 - POD #2 arterioplasty of left peroneal and popliteal arteries. DAPT + statin. - to OR today for debridement of ulcer with Dr Yin # COVID-19 infection - resolving, diagnosed 04/23/20 # DM2 with am hypoglycemia, A1c 8.7 - d/c'ed Lantus # HTN - continue amlodipine # urinary retention - continue finasteride + tamsulosin, Gaytan in place # VTE ppx - UFH # dispo - likely will need SNF
[2020-05-10 12:36] LABS: Glucose, Whole Blood 208 mg/dL (60-115)
[2020-05-10] MEDS: Insulin Lispro 100 UNIT/ML 3 ML VIAL SUBCUT ×3 (12:40→22:03)
--- NOTE | 2020-05-10 13:06 | P.PNGS_ITS ---
Subjective Subjective Date of Service: 05/10/20 Interval history: No new complaints, happy surgery is scheduled for today Physical Exam Vital Signs: Vital Signs: Last Vital Signs Temp 98.5 F 05/10/20 12:00 Pulse 95 05/10/20 12:00 Resp 18 05/10/20 12:00 BP 150/70 H 05/10/20 12:00 Pulse Ox 95 05/10/20 12:00 Body Mass Index 26.6 Const: General: cooperative, comfortable and alert Resp: Effort & Inspection: normal respiratory effort, no audible wheezes and no cough Cardio: Rate: regular rate Rhythm: regular rhythm Skin: General skin exam: no rashes or lesions noted Extrem: Other: Bilateral foot ulcers in forefoot and heal with necrotic skin Progress Note: A&P Assessment and plan (1) Open wnd foot-complicated: Status: Acute Assessment and Plan: Bilateral foot wounds with skin necrosis. I reviewed the procedure, alternatives and risks of the bilateral foot debridements with the assistance of a medical oncologist, and the patient gives his consent for the surgery. Fall Risk Details Current Medications: Current Medications Generic Name Dose Route Start Last Admin Trade Name Freq PRN Reason Stop Dose Admin Acetaminophen 650 mg 05/02/20 19:11 05/05/20 12:46 Acetaminophen 325 Mg Tablet PO 650 mg Q6H PRN Administration Pain, Mild (Pain Scale 1-3) Albuterol Sulfate 2 puff 05/02/20 19:11 Albuterol Sulfate 90 Mcg 8 Gm Inhaler INHALE Q4H PRN Shortness Of Breath Or Wheezing Amlodipine Besylate 5 mg 05/03/20 09:00 05/10/20 10:52 Amlodipine Besylate 5 Mg Tablet PO Not Given DAILY [facility] Protocol Aspirin 81 mg 05/03/20 09:00 05/10/20 10:52 Aspirin Enteric Coated 81 Mg Tablet.Dr PO Not Given DAILY [facility] Atorvastatin Calcium 80 mg 05/03/20 09:00 05/10/20 10:52 Atorvastatin Calcium 80 Mg Tablet PO Not Given DAILY [facility] Brimonidine Tartrate 1 drop 05/02/20 21:00 05/10/20 10:52 Brimonidine Tartrate 0.2% Oph 5 Ml Bottle EYE-BOTH Not Given TID [facility] Clopidogrel Bisulfate 75 mg 05/03/20 09:00 05/10/20 10:52 Clopidogrel Bisulfate 75 Mg Tablet PO Not Given DAILY [facility] Finasteride 5 mg 05/03/20 09:00 05/10/20 10:52 Finasteride 5 Mg Tablet PO Not Given DAILY [facility] Fluticasone Propionate 2 spray 05/03/20 09:00 05/10/20 10:53 Fluticasone Propionate Nasal 16 Gm [place] NOSTRIL-B Not Given DAILY [facility] Heparin Sodium (Porcine) 5,000 unit 05/02/20 19:30 05/10/20 06:16 Heparin Sodium,Porcine 5,000 Unit/Ml Vial SUBCUT 5,000 unit Q12H [facility] Administration Vancomycin HCl 1,000 mg/ 270 mls @ 270 mls/hr 05/08/20 14:00 05/09/20 16:59 Sodium Chloride IV Infused Q24H [facility] Infusion Piperacillin Sod/Tazobactam 50 mls @ 100 mls/hr 05/08/20 18:00 05/10/20 13:01 Sod 3.375 gm/ Sodium Chloride IV Infused Q6H [facility] Infusion Insulin Human Lispro 0 unit 05/03/20 20:13 05/10/20 12:40 Insulin Lispro 100 Unit/Ml 3 Ml Vial SUBCUT 4 unit QIDACHS [facility] Administration Protocol Multivitamins/Vitamin C 1 tab 05/03/20 09:00 05/10/20 10:53 Multivitamin Tablet PO Not Given DAILY [facility] Ondansetron HCl 4 mg 05/02/20 19:11 Ondansetron Hcl 4 Mg/2 Ml Vial IVPUSH Q8H PRN Nausea and Vomiting Sodium Chloride 3 ml 05/03/20 00:00 05/10/20 08:54 0.9 % Sodium Chloride Flush 3 Ml Syringe IVFLUSH 3 ml QSHIFT [facility] Administration Tamsulosin HCl 0.4 mg 05/02/20 21:00 05/09/20 19:53 Tamsulosin Hcl 0.4 Mg Capsule PO 0.4 mg BEDTIME [facility] Administration Time Spent With Patient Time: Total time spent is greater than 50% in coordination of care (as documented) at patient's floor/unit and/or counseling patient: Time with patient: 15 - 24 minutes
--- NOTE | 2020-05-10 13:33 | MHC.SHP ---
Pre-Procedural Eval Section A The patient is an INPATIENT: Yes Changes since office visit: Yes Cold of Flu in the past 2 weeks The History & Physical has been completed within 30 days and I have reviewed it.: Yes Section B Chief Complaint: L FOOT INFECTION, +COVID Allergies: Allergies Allergy/AdvReac Type Severity Reaction Status Date / Time No Known Allergies Allergy Unverified 12/14/19 18:22 [No Known Allergies*] Plan Diagnosis/Plan: Unchanged I have reviewed the history and physical and performed a pertinent physical examination on my patient. No changes have occurred unless specified.
--- NOTE | 2020-05-10 13:36 | P.CONAN_ITS ---
[facility] Active Problems Active Problems: All Active Problems (Updated 05/10/20 @ 08:07 by Bird Anderson MD) PVD (peripheral vascular disease) (Acute) Open wnd foot-complicated (Acute) Dysphagia (Acute) CVA (cerebral vascular accident) (Acute) BPH w urinary obs/LUTS (Acute) Weak urinary stream (Acute) Hematuria (Acute) Paraphimosis (Acute) Acute UTI (Acute) Balanitis (Acute) Enlarged prostate (Acute) Acute kidney injury superimposed on CKD (Acute) UTI (urinary tract infection) (Acute) Hypertension (Acute) Hiatal hernia (Acute) Arthritis (Acute) Past Medical History Medical History Arthritis Asthma Candidiasis of penis Cholelithiasis Diabetes mellitus, type 2 Diverticulosis Hiatal hernia Hydronephrosis Hyperlipidemia Hypertension Sepsis Severe sepsis Wheelchair dependence Surgical History Surgical History H/O hernia repair Social History Social History Household Members: Other Housing: Apartment Alcohol intake: unknown Smoking Status: Never smoker Second Hand Smoke Exposure: No service: No Current occupational status: disabled Meds Allergies Allergy/AdvReac Type Severity Reaction Status Date / Time No Known Allergies Allergy Unverified 12/14/19 18:22 [No Known Allergies*] Active Medications: Current Medications Generic Name Dose Route Start Last Admin Trade Name Freq PRN Reason Stop Dose Admin Acetaminophen 650 mg 05/02/20 19:11 05/05/20 12:46 Acetaminophen 325 Mg Tablet PO 650 mg Q6H PRN Administration Pain, Mild (Pain Scale 1-3) Albuterol Sulfate 2 puff 05/02/20 19:11 Albuterol Sulfate 90 Mcg 8 Gm Inhaler INHALE Q4H PRN Shortness Of Breath Or Wheezing Amlodipine Besylate 5 mg 05/03/20 09:00 05/10/20 10:52 Amlodipine Besylate 5 Mg Tablet PO Not Given DAILY [facility] Protocol Aspirin 81 mg 05/03/20 09:00 05/10/20 10:52 Aspirin Enteric Coated 81 Mg Tablet.Dr PO Not Given DAILY [facility] Atorvastatin Calcium 80 mg 05/03/20 09:00 05/10/20 10:52 Atorvastatin Calcium 80 Mg Tablet PO Not Given DAILY [facility] Brimonidine Tartrate 1 drop 05/02/20 21:00 05/10/20 10:52 Brimonidine Tartrate 0.2% Oph 5 Ml Bottle EYE-BOTH Not Given TID [facility] Clopidogrel Bisulfate 75 mg 05/03/20 09:00 05/10/20 10:52 Clopidogrel Bisulfate 75 Mg Tablet PO Not Given DAILY [facility] Finasteride 5 mg 05/03/20 09:00 05/10/20 10:52 Finasteride 5 Mg Tablet PO Not Given DAILY [facility] Fluticasone Propionate 2 spray 05/03/20 09:00 05/10/20 10:53 Fluticasone Propionate Nasal 16 Gm [place] NOSTRIL-B Not Given DAILY [facility] Heparin Sodium (Porcine) 5,000 unit 05/02/20 19:30 05/10/20 06:16 Heparin Sodium,Porcine 5,000 Unit/Ml Vial SUBCUT 5,000 unit Q12H [facility] Administration Vancomycin HCl 1,000 mg/ 270 mls @ 270 mls/hr 05/08/20 14:00 05/09/20 16:59 Sodium Chloride IV Infused Q24H [facility] Infusion Piperacillin Sod/Tazobactam 50 mls @ 100 mls/hr 05/08/20 18:00 05/10/20 13:01 Sod 3.375 gm/ Sodium Chloride IV Infused Q6H [facility] Infusion Insulin Human Lispro 0 unit 05/03/20 20:13 05/10/20 12:40 Insulin Lispro 100 Unit/Ml 3 Ml Vial SUBCUT 4 unit QIDACHS [facility] Administration Protocol Multivitamins/Vitamin C 1 tab 05/03/20 09:00 05/10/20 10:53 Multivitamin Tablet PO Not Given DAILY [facility] Ondansetron HCl 4 mg 05/02/20 19:11 Ondansetron Hcl 4 Mg/2 Ml Vial IVPUSH Q8H PRN Nausea and Vomiting Sodium Chloride 3 ml 05/03/20 00:00 05/10/20 08:54 0.9 % Sodium Chloride Flush 3 Ml Syringe IVFLUSH 3 ml QSHIFT [facility] Administration Tamsulosin HCl 0.4 mg 05/02/20 21:00 05/09/20 19:53 Tamsulosin Hcl 0.4 Mg Capsule PO 0.4 mg BEDTIME [facility] Administration Home Medications Medication Instructions Recorded Confirmed Last Taken Type Lantus Solostar U-100 Insulin 35 unit SUBCUT BEDTIME 01/01/20 05/02/20 05/01/20 History albuterol sulfate 2 puff PO Q4-6H PRN 01/01/20 05/02/20 Unknown History amlodipine 5 mg PO DAILY 01/01/20 05/02/20 05/01/20 History clopidogrel 75 mg PO DAILY 01/01/20 05/02/20 05/01/20 History glimepiride 1 mg PO DAILY 01/01/20 05/02/20 05/01/20 History atorvastatin 80 mg tablet 80 mg PO DAILY 02/12/20 05/02/20 05/01/20 History aspirin 81 mg PO DAILY 05/02/20 05/02/20 05/01/20 History brimonidine 1 drp OPHTHALMIC (EYE) TID 05/02/20 05/02/20 05/01/20 History finasteride 5 mg PO DAILY 05/02/20 05/02/20 05/01/20 History fluticasone propionate [Flonase] 2 spray INTRANASAL DAILY 05/02/20 05/02/20 05/01/20 History melatonin 3 mg PO BEDTIME 05/02/20 05/02/20 05/01/20 History multivitamin [Daily-Casa] 1 tab PO DAILY 05/02/20 05/02/20 05/01/20 History sulfamethoxazole-trimethoprim 1 tab PO Q12H 05/02/20 05/02/20 05/01/20 History [SMZ-TMP DS] tamsulosin 0.4 mg PO BEDTIME 05/02/20 05/02/20 05/01/20 History Exam Exam Date and Time: May 10, 2020 1336 Height,Weight and Vital Signs: Height 5 ft 4 in Weight 70.5 kg Last Vital Signs Temp 98.5 F 05/10/20 12:00 Pulse 95 05/10/20 12:00 Resp 18 05/10/20 12:00 BP 150/70 H 05/10/20 12:00 Pulse Ox 95 05/10/20 12:00 Pertinent Lab Results Pertinent Lab Results: Laboratory Tests 05/02/20 05/02/20 05/02/20 11:33 11:33 11:33 WBC 5.6 RBC 3.43 L Hgb 10.0 L Hct 30.4 L MCV 88.6 MCH 29.2 MCHC 32.9 RDW 14.6 Plt Count 334 MPV 9.0 L Immature Gran % (Auto) 0.5 H Neut % (Auto) 82.1 H Lymph % (Auto) 10.0 L [place] % (Auto) 6.1 Eos % (Auto) 1.1 Baso % (Auto) 0.2 Lymph # (Auto) 0.6 L [place] # (Auto) 0.3 Eos # (Auto) 0.1 Baso # (Auto) 0.0 Abs Immat Gran (auto) 0.03 Absolute Neuts (auto) 4.6 Absolute Nucleated RBC 0.000 Nucleated RBC % (auto) 0.0 Smear Tech's Comments VERIFIED ESR PT INR APTT Hold Blue Top SEE NOTE Sodium 136 Potassium 4.2 Chloride 97 Carbon Dioxide 28 Anion Gap 15 BUN 16 Creatinine 1.02 Estim Creat Clear Calc 51.5 Estimated GFR > 60 POC Glucose Random Glucose 353 H* Fasting Glucose Estimat Average Glucose Hemoglobin A1c % Lactic Acid Lactic Acid Fup @ 2Hr Calcium 7.3 L D Magnesium 1.5 L Total Bilirubin 0.5 Direct Bilirubin 0.3 AST 15 ALT 17 Alkaline Phosphatase 78 C-Reactive Protein 15.68 H Total Protein 5.9 L Albumin 2.5 L Urine Color Urine Appearance Urine pH Ur Specific [place] Urine Protein Urine Glucose (UA) Urine Ketones Urine Blood Urine Nitrite Ur Leukocyte Esterase Urine RBC Urine WBC Ur Squamous Epith Cells Urine Bacteria Vancomycin Trough COVID-19 ([facility]) COVID-19 Clin Com 05/02/20 05/02/20 05/02/20 11:53 11:53 13:58 WBC RBC Hgb Hct MCV MCH MCHC RDW Plt Count MPV Immature Gran % (Auto) Neut % (Auto) Lymph % (Auto) [place] % (Auto) Eos % (Auto) Baso % (Auto) Lymph # (Auto) [place] # (Auto) Eos # (Auto) Baso # (Auto) Abs Immat Gran (auto) Absolute Neuts (auto) Absolute Nucleated RBC Nucleated RBC % (auto) Smear Tech's Comments ESR 94 H PT INR APTT Hold Blue Top Sodium Potassium Chloride Carbon Dioxide Anion Gap BUN Creatinine Estim Creat Clear Calc Estimated GFR POC Glucose Random Glucose Fasting Glucose Estimat Average Glucose Hemoglobin A1c % Lactic Acid 2.3 H* Lactic Acid Fup @ 2Hr Calcium Magnesium Total Bilirubin Direct Bilirubin AST ALT Alkaline Phosphatase C-Reactive Protein Total Protein Albumin Urine Color Urine Appearance Urine pH Ur Specific [place] Urine Protein Urine Glucose (UA) Urine Ketones Urine Blood Urine Nitrite Ur Leukocyte Esterase Urine RBC Urine WBC Ur Squamous Epith Cells Urine Bacteria Vancomycin Trough COVID-19 ([facility]) Positive A COVID-19 Clin Com See Note 05/02/20 05/02/20 05/02/20 14:48 19:09 22:01 WBC RBC Hgb Hct MCV MCH MCHC RDW Plt Count MPV Immature Gran % (Auto) Neut % (Auto) Lymph % (Auto) [place] % (Auto) Eos % (Auto) Baso % (Auto) Lymph # (Auto) [place] # (Auto) Eos # (Auto) Baso # (Auto) Abs Immat Gran (auto) Absolute Neuts (auto) Absolute Nucleated RBC Nucleated RBC % (auto) Smear Tech's Comments ESR PT INR APTT Hold Blue Top Sodium Potassium Chloride Carbon Dioxide Anion Gap BUN Creatinine Estim Creat Clear Calc Estimated GFR POC Glucose 231 H Random Glucose Fasting Glucose Estimat Average Glucose Hemoglobin A1c % Lactic Acid Lactic Acid Fup @ 2Hr 1.0 Calcium Magnesium Total Bilirubin Direct Bilirubin AST ALT Alkaline Phosphatase C-Reactive Protein Total Protein Albumin Urine Color YELLOW Urine Appearance CLOUDY Urine pH 6.5 Ur Specific [place] 1.015 Urine Protein 3+ H Urine Glucose (UA) 250 H Urine Ketones NEG Urine Blood 3+ H Urine Nitrite NEG Ur Leukocyte Esterase 2+ H Urine RBC 5-9 H Urine WBC TNTC H Ur Squamous Epith Cells 1+ Urine Bacteria 1+ Vancomycin Trough COVID-19 ([facility]) COVID-19 Clin Com 05/03/20 05/03/20 05/03/20 06:12 06:12 11:55 WBC 5.2 RBC 3.36 L Hgb 9.7 L Hct 30.2 L MCV 89.9 MCH 28.9 MCHC 32.1 RDW 14.6 Plt Count 342 MPV 8.5 L Immature Gran % (Auto) 0.6 H Neut % (Auto) 74.9 H Lymph % (Auto) 15.3 L [place] % (Auto) 7.4 Eos % (Auto) 1.6 Baso % (Auto) 0.2 Lymph # (Auto) 0.8 L [place] # (Auto) 0.4 Eos # (Auto) 0.1 Baso # (Auto) 0.0 Abs Immat Gran (auto) 0.03 Absolute Neuts (auto) 3.9 Absolute Nucleated RBC 0.000 Nucleated RBC % (auto) 0.0 Smear Tech's Comments ESR PT INR APTT Hold Blue Top Sodium 141 Potassium 3.6 Chloride 103 Carbon Dioxide 30 H Anion Gap 12 BUN 12 Creatinine 0.87 Estim Creat Clear Calc 60.4 Estimated GFR > 60 POC Glucose 163 H Random Glucose 147 H D Fasting Glucose Estimat Average Glucose Hemoglobin A1c % Lactic Acid Lactic Acid Fup @ 2Hr Calcium 7.1 L Magnesium Total Bilirubin Direct Bilirubin AST ALT Alkaline Phosphatase C-Reactive Protein Total Protein Albumin Urine Color Urine Appearance Urine pH Ur Specific [place] Urine Protein Urine Glucose (UA) Urine Ketones Urine Blood Urine Nitrite Ur Leukocyte Esterase Urine RBC Urine WBC Ur Squamous Epith Cells Urine Bacteria Vancomycin Trough COVID-19 ([facility]) [employer] 05/03/20 05/03/20 05/04/20 16:35 20:32 05:56 WBC 5.6 RBC 3.55 L Hgb 10.2 L Hct 31.8 L MCV 89.6 MCH 28.7 MCHC 32.1 RDW 14.5 Plt Count 408 H MPV 8.6 L Immature Gran % (Auto) 0.4 Neut % (Auto) 72.8 Lymph % (Auto) 16.9 L [place] % (Auto) 7.3 Eos % (Auto) 2.1 Baso % (Auto) 0.5 Lymph # (Auto) 1.0 L [place] # (Auto) 0.4 Eos # (Auto) 0.1 Baso # (Auto) 0.0 Abs Immat Gran (auto) 0.02 Absolute Neuts (auto) 4.1 Absolute Nucleated RBC 0.000 Nucleated RBC % (auto) 0.0 Smear Tech's Comments ESR PT INR APTT Hold Blue Top Sodium Potassium Chloride Carbon Dioxide Anion Gap BUN Creatinine Estim Creat Clear Calc Estimated GFR POC Glucose 196 H 204 H Random Glucose Fasting Glucose Estimat Average Glucose Hemoglobin A1c % Lactic Acid Lactic Acid Fup @ 2Hr Calcium Magnesium Total Bilirubin Direct Bilirubin AST ALT Alkaline Phosphatase C-Reactive Protein Total Protein Albumin Urine Color Urine Appearance Urine pH Ur Specific [place] Urine Protein Urine Glucose (UA) Urine Ketones Urine Blood Urine Nitrite Ur Leukocyte Esterase Urine RBC Urine WBC Ur Squamous Epith Cells Urine Bacteria Vancomycin Trough COVID-19 ([facility]) [employer] 05/04/20 05/04/20 05/04/20 05:56 07:16 11:07 WBC RBC Hgb Hct MCV MCH MCHC RDW Plt Count MPV Immature Gran % (Auto) Neut % (Auto) Lymph % (Auto) [place] % (Auto) Eos % (Auto) Baso % (Auto) Lymph # (Auto) [place] # (Auto) Eos # (Auto) Baso # (Auto) Abs Immat Gran (auto) Absolute Neuts (auto) Absolute Nucleated RBC Nucleated RBC % (auto) Smear Tech's Comments ESR PT INR APTT Hold Blue Top Sodium 138 Potassium 3.9 Chloride 102 Carbon Dioxide 28 Anion Gap 12 BUN 15 Creatinine 0.78 Estim Creat Clear Calc 67.4 Estimated GFR > 60 POC Glucose 65 96 Random Glucose Fasting Glucose 61 D Estimat Average Glucose Hemoglobin A1c % Lactic Acid Lactic Acid Fup @ 2Hr Calcium 7.1 L Magnesium Total Bilirubin Direct Bilirubin AST ALT Alkaline Phosphatase C-Reactive Protein Total Protein Albumin Urine Color Urine Appearance Urine pH Ur Specific [place] Urine Protein Urine Glucose (UA) Urine Ketones Urine Blood Urine Nitrite Ur Leukocyte Esterase Urine RBC Urine WBC Ur Squamous Epith Cells Urine Bacteria Vancomycin Trough COVID-19 ([facility]) COVID-19 Clin Com 05/04/20 05/04/20 05/05/20 16:42 20:34 06:22 WBC 6.1 RBC 3.26 L Hgb 9.3 L Hct 28.9 L MCV 88.7 MCH 28.5 MCHC 32.2 RDW 14.6 Plt Count 382 MPV 8.5 L Immature Gran % (Auto) 0.3 Neut % (Auto) 79.4 H Lymph % (Auto) 10.9 L [place] % (Auto) 8.1 Eos % (Auto) 1.0 Baso % (Auto) 0.3 Lymph # (Auto) 0.7 L [place] # (Auto) 0.5 Eos # (Auto) 0.1 Baso # (Auto) 0.0 Abs Immat Gran (auto) 0.02 Absolute Neuts (auto) 4.8 Absolute Nucleated RBC 0.000 Nucleated RBC % (auto) 0.0 Smear Tech's Comments VERIFIED ESR PT INR APTT Hold Blue Top Sodium Potassium Chloride Carbon Dioxide Anion Gap BUN Creatinine Estim Creat Clear Calc Estimated GFR POC Glucose 81 83 Random Glucose Fasting Glucose Estimat Average Glucose Hemoglobin A1c % Lactic Acid Lactic Acid Fup @ 2Hr Calcium Magnesium Total Bilirubin Direct Bilirubin AST ALT Alkaline Phosphatase C-Reactive Protein Total Protein Albumin Urine Color Urine Appearance Urine pH Ur Specific [place] Urine Protein Urine Glucose (UA) Urine Ketones Urine Blood Urine Nitrite Ur Leukocyte Esterase Urine RBC Urine WBC Ur Squamous Epith Cells Urine Bacteria Vancomycin Trough COVID-19 ([facility]) COVID-19 [email or web address] Com 05/05/20 05/05/20 05/05/20 06:22 08:10 08:51 WBC RBC Hgb Hct MCV MCH MCHC RDW Plt Count MPV Immature Gran % (Auto) Neut % (Auto) Lymph % (Auto) [place] % (Auto) Eos % (Auto) Baso % (Auto) Lymph # (Auto) [place] # (Auto) Eos # (Auto) Baso # (Auto) Abs Immat Gran (auto) Absolute Neuts (auto) Absolute Nucleated RBC Nucleated RBC % (auto) Smear Tech's Comments ESR PT INR APTT Hold Blue Top Sodium 139 Potassium 4.2 Chloride 103 Carbon Dioxide 28 Anion Gap 12 BUN 12 Creatinine 0.84 Estim Creat Clear Calc 62.6 Estimated GFR > 60 POC Glucose 49 L* 70 Random Glucose Fasting Glucose 42 L* Estimat Average Glucose Hemoglobin A1c % Lactic Acid Lactic Acid Fup @ 2Hr Calcium 7.4 L Magnesium Total Bilirubin Direct Bilirubin AST ALT Alkaline Phosphatase C-Reactive Protein Total Protein Albumin Urine Color Urine Appearance Urine pH Ur Specific [place] Urine Protein Urine Glucose (UA) Urine Ketones Urine Blood Urine Nitrite Ur Leukocyte Esterase Urine RBC Urine WBC Ur Squamous Epith Cells Urine Bacteria Vancomycin Trough COVID-19 ([facility]) [employer] 05/05/20 05/05/20 05/05/20 11:40 11:52 16:22 WBC RBC Hgb Hct MCV MCH MCHC RDW Plt Count MPV Immature Gran % (Auto) Neut % (Auto) Lymph % (Auto) [place] % (Auto) Eos % (Auto) Baso % (Auto) Lymph # (Auto) [place] # (Auto) Eos # (Auto) Baso # (Auto) Abs Immat Gran (auto) Absolute Neuts (auto) Absolute Nucleated RBC Nucleated RBC % (auto) Smear Tech's Comments ESR PT INR APTT Hold Blue Top Sodium Potassium Chloride Carbon Dioxide Anion Gap BUN Creatinine Estim Creat Clear Calc Estimated GFR POC Glucose 105 109 Random Glucose Fasting Glucose Estimat Average Glucose Hemoglobin A1c % Lactic Acid Lactic Acid Fup @ 2Hr Calcium Magnesium Total Bilirubin Direct Bilirubin AST ALT Alkaline Phosphatase C-Reactive Protein Total Protein Albumin Urine Color Urine Appearance Urine pH Ur Specific [place] Urine Protein Urine Glucose (UA) Urine Ketones Urine Blood Urine Nitrite Ur Leukocyte Esterase Urine RBC Urine WBC Ur Squamous Epith Cells Urine Bacteria Vancomycin Trough 15.8 COVID-19 ([facility]) COVID-19 Clin Com 05/05/20 05/06/20 05/06/20 20:12 05:28 05:28 WBC 5.4 RBC 3.15 L Hgb 9.0 L Hct 28.2 L MCV 89.5 MCH 28.6 MCHC 31.9 RDW 14.6 Plt Count 379 MPV 8.6 L Immature Gran % (Auto) 0.2 Neut % (Auto) 71.5 Lymph % (Auto) 16.0 L [place] % (Auto) 8.9 Eos % (Auto) 3.0 Baso % (Auto) 0.4 Lymph # (Auto) 0.9 L [place] # (Auto) 0.5 Eos # (Auto) 0.2 Baso # (Auto) 0.0 Abs Immat Gran (auto) 0.01 Absolute Neuts (auto) 3.9 Absolute Nucleated RBC 0.000 Nucleated RBC % (auto) 0.0 Smear Tech's Comments ESR PT INR APTT Hold Blue Top Sodium 140 Potassium 3.7 Chloride 105 Carbon Dioxide 29 Anion Gap 10 L BUN 11 Creatinine 0.91 Estim Creat Clear Calc 57.8 Estimated GFR > 60 POC Glucose 112 Random Glucose Fasting Glucose 54 L* Estimat Average Glucose Hemoglobin A1c % Lactic Acid Lactic Acid Fup @ 2Hr Calcium 7.2 L Magnesium 1.7 Total Bilirubin Direct Bilirubin AST ALT Alkaline Phosphatase C-Reactive Protein Total Protein Albumin Urine Color Urine Appearance Urine pH Ur Specific [place] Urine Protein Urine Glucose (UA) Urine Ketones Urine Blood Urine Nitrite Ur Leukocyte Esterase Urine RBC Urine WBC Ur Squamous Epith Cells Urine Bacteria Vancomycin Trough COVID-19 ([facility]) COVID-19 Clin Com 05/06/20 05/06/20 05/06/20 07:10 11:41 16:48 WBC RBC Hgb Hct MCV MCH MCHC RDW Plt Count MPV Immature Gran % (Auto) Neut % (Auto) Lymph % (Auto) [place] % (Auto) Eos % (Auto) Baso % (Auto) Lymph # (Auto) [place] # (Auto) Eos # (Auto) Baso # (Auto) Abs Immat Gran (auto) Absolute Neuts (auto) Absolute Nucleated RBC Nucleated RBC % (auto) Smear Tech's Comments ESR PT INR APTT Hold Blue Top Sodium Potassium Chloride Carbon Dioxide Anion Gap BUN Creatinine Estim Creat Clear Calc Estimated GFR POC Glucose 70 69 124 H Random Glucose Fasting Glucose Estimat Average Glucose Hemoglobin A1c % Lactic Acid Lactic Acid Fup @ 2Hr Calcium Magnesium Total Bilirubin Direct Bilirubin AST ALT Alkaline Phosphatase C-Reactive Protein Total Protein Albumin Urine Color Urine Appearance Urine pH Ur Specific [place] Urine Protein Urine Glucose (UA) Urine Ketones Urine Blood Urine Nitrite Ur Leukocyte Esterase Urine RBC Urine WBC Ur Squamous Epith Cells Urine Bacteria Vancomycin Trough COVID-19 ([facility]) COVID-19 Clin Com 05/06/20 05/07/20 05/07/20 20:39 05:33 05:33 WBC 5.0 RBC 3.27 L Hgb 9.2 L Hct 29.7 L MCV 90.8 MCH 28.1 MCHC 31.0 RDW 14.6 Plt Count 361 MPV 8.6 L Immature Gran % (Auto) 0.2 Neut % (Auto) 69.1 Lymph % (Auto) 19.6 L [place] % (Auto) 8.1 Eos % (Auto) 2.6 Baso % (Auto) 0.4 Lymph # (Auto) 1.0 L [place] # (Auto) 0.4 Eos # (Auto) 0.1 Baso # (Auto) 0.0 Abs Immat Gran (auto) 0.01 Absolute Neuts (auto) 3.4 Absolute Nucleated RBC 0.000 Nucleated RBC % (auto) 0.0 Smear Tech's Comments ESR PT INR APTT Hold Blue Top Sodium 141 Potassium 4.0 Chloride 104 Carbon Dioxide 28 Anion Gap 13 BUN 10 Creatinine 0.86 Estim Creat Clear Calc 61.1 Estimated GFR > 60 POC Glucose 174 H Random Glucose 61 D Fasting Glucose Estimat Average Glucose Hemoglobin A1c % Lactic Acid Lactic Acid Fup @ 2Hr Calcium 7.3 L Magnesium Total Bilirubin Direct Bilirubin AST ALT Alkaline Phosphatase C-Reactive Protein 5.42 H Total Protein Albumin Urine Color Urine Appearance Urine pH Ur Specific [place] Urine Protein Urine Glucose (UA) Urine Ketones Urine Blood Urine Nitrite Ur Leukocyte Esterase Urine RBC Urine WBC Ur Squamous Epith Cells Urine Bacteria Vancomycin Trough COVID-19 ([facility]) COVID-19 Clin Com 05/07/20 05/07/20 05/07/20 07:46 09:22 11:23 WBC RBC Hgb Hct MCV MCH MCHC RDW Plt Count MPV Immature Gran % (Auto) Neut % (Auto) Lymph % (Auto) [place] % (Auto) Eos % (Auto) Baso % (Auto) Lymph # (Auto) [place] # (Auto) Eos # (Auto) Baso # (Auto) Abs Immat Gran (auto) Absolute Neuts (auto) Absolute Nucleated RBC Nucleated RBC % (auto) Smear Tech's Comments ESR PT INR APTT Hold Blue Top Sodium Potassium Chloride Carbon Dioxide Anion Gap BUN Creatinine Estim Creat Clear Calc Estimated GFR POC Glucose 58 L* 118 H 132 H Random Glucose Fasting Glucose Estimat Average Glucose Hemoglobin A1c % Lactic Acid Lactic Acid Fup @ 2Hr Calcium Magnesium Total Bilirubin Direct Bilirubin AST ALT Alkaline Phosphatase C-Reactive Protein Total Protein Albumin Urine Color Urine Appearance Urine pH Ur Specific [place] Urine Protein Urine Glucose (UA) Urine Ketones Urine Blood Urine Nitrite Ur Leukocyte Esterase Urine RBC Urine WBC Ur Squamous Epith Cells Urine Bacteria Vancomycin Trough COVID-19 ([facility]) [employer] 05/07/20 05/07/20 05/07/20 13:23 16:43 20:30 WBC RBC Hgb Hct MCV MCH MCHC RDW Plt Count MPV Immature Gran % (Auto) Neut % (Auto) Lymph % (Auto) [place] % (Auto) Eos % (Auto) Baso % (Auto) Lymph # (Auto) [place] # (Auto) Eos # (Auto) Baso # (Auto) Abs Immat Gran (auto) Absolute Neuts (auto) Absolute Nucleated RBC Nucleated RBC % (auto) Smear Tech's Comments ESR PT 13.0 INR 1.1 APTT 42.4 H Hold Blue Top Sodium Potassium Chloride Carbon Dioxide Anion Gap BUN Creatinine Estim Creat Clear Calc Estimated GFR POC Glucose 153 H 153 H Random Glucose Fasting Glucose Estimat Average Glucose Hemoglobin A1c % Lactic Acid Lactic Acid Fup @ 2Hr Calcium Magnesium Total Bilirubin Direct Bilirubin AST ALT Alkaline Phosphatase C-Reactive Protein Total Protein Albumin Urine Color Urine Appearance Urine pH Ur Specific [place] Urine Protein Urine Glucose (UA) Urine Ketones Urine Blood Urine Nitrite Ur Leukocyte Esterase Urine RBC Urine WBC Ur Squamous Epith Cells Urine Bacteria Vancomycin Trough COVID-19 ([facility]) COVID-19 [facility] 05/08/20 05/08/20 05/08/20 08:19 11:58 12:22 WBC RBC Hgb Hct MCV MCH MCHC RDW Plt Count MPV Immature Gran % (Auto) Neut % (Auto) Lymph % (Auto) [place] % (Auto) Eos % (Auto) Baso % (Auto) Lymph # (Auto) [place] # (Auto) Eos # (Auto) Baso # (Auto) Abs Immat Gran (auto) Absolute Neuts (auto) Absolute Nucleated RBC Nucleated RBC % (auto) Smear Tech's Comments ESR PT INR APTT Hold Blue Top Sodium Potassium Chloride Carbon Dioxide Anion Gap BUN Creatinine Estim Creat Clear Calc Estimated GFR POC Glucose 98 87 Random Glucose Fasting Glucose Estimat Average Glucose Hemoglobin A1c % Lactic Acid Lactic Acid Fup @ 2Hr Calcium Magnesium Total Bilirubin Direct Bilirubin AST ALT Alkaline Phosphatase C-Reactive Protein Total Protein Albumin Urine Color Urine Appearance Urine pH Ur Specific [place] Urine Protein Urine Glucose (UA) Urine Ketones Urine Blood Urine Nitrite Ur Leukocyte Esterase Urine RBC Urine WBC Ur Squamous Epith Cells Urine Bacteria Vancomycin Trough 18.9 COVID-19 ([facility]) [employer] 05/08/20 05/08/20 05/09/20 16:05 19:52 05:34 WBC RBC Hgb Hct MCV MCH MCHC RDW Plt Count MPV Immature Gran % (Auto) Neut % (Auto) Lymph % (Auto) [place] % (Auto) Eos % (Auto) Baso % (Auto) Lymph # (Auto) [place] # (Auto) Eos # (Auto) Baso # (Auto) Abs Immat Gran (auto) Absolute Neuts (auto) Absolute Nucleated RBC Nucleated RBC % (auto) Smear Tech's Comments ESR PT INR APTT Hold Blue Top Sodium Potassium Chloride Carbon Dioxide Anion Gap BUN Creatinine Estim Creat Clear Calc Estimated GFR POC Glucose 150 H 226 H Random Glucose Fasting Glucose Estimat Average Glucose 203 Hemoglobin A1c % 8.7 Lactic Acid Lactic Acid Fup @ 2Hr Calcium Magnesium Total Bilirubin Direct Bilirubin AST ALT Alkaline Phosphatase C-Reactive Protein Total Protein Albumin Urine Color Urine Appearance Urine pH Ur Specific [place] Urine Protein Urine Glucose (UA) Urine Ketones Urine Blood Urine Nitrite Ur Leukocyte Esterase Urine RBC Urine WBC Ur Squamous Epith Cells Urine Bacteria Vancomycin Trough COVID-19 ([facility]) COVID-19 [facility] 05/09/20 05/09/20 05/09/20 05:34 05:34 05:34 WBC 4.5 L RBC 3.03 L Hgb 8.6 L Hct 27.4 L MCV 90.4 MCH 28.4 MCHC 31.4 RDW 14.6 Plt Count 337 MPV 8.8 L Immature Gran % (Auto) 0.4 Neut % (Auto) 68.9 Lymph % (Auto) 17.4 L [place] % (Auto) 9.5 Eos % (Auto) 3.1 Baso % (Auto) 0.7 Lymph # (Auto) 0.8 L [place] # (Auto) 0.4 Eos # (Auto) 0.1 Baso # (Auto) 0.0 Abs Immat Gran (auto) 0.02 Absolute Neuts (auto) 3.1 Absolute Nucleated RBC 0.000 Nucleated RBC % (auto) 0.0 Smear Tech's Comments ESR 100 H PT INR APTT Hold Blue Top Sodium 139 Potassium 4.5 Chloride 104 Carbon Dioxide 29 Anion Gap 11 L BUN 12 Creatinine 1.07 Estim Creat Clear Calc 49.1 Estimated GFR > 60 POC Glucose Random Glucose 220 H D Fasting Glucose Estimat Average Glucose Hemoglobin A1c % Lactic Acid Lactic Acid Fup @ 2Hr Calcium 7.2 L Magnesium Total Bilirubin Direct Bilirubin AST ALT Alkaline Phosphatase C-Reactive Protein 6.57 H Total Protein Albumin Urine Color Urine Appearance Urine pH Ur Specific [place] Furnace Urine Protein Urine Glucose (UA) Urine Ketones Urine Blood Urine Nitrite Ur Leukocyte Esterase Urine RBC Urine WBC Ur Squamous Epith Cells Urine Bacteria Vancomycin Trough COVID-19 ([facility]) COVID-19 Clin Com 05/09/20 05/09/20 05/09/20 07:01 11:04 16:16 WBC RBC Hgb Hct MCV MCH MCHC RDW Plt Count MPV Immature Gran % (Auto) Neut % (Auto) Lymph % (Auto) [place] % (Auto) Eos % (Auto) Baso % (Auto) Lymph # (Auto) [place] # (Auto) Eos # (Auto) Baso # (Auto) Abs Immat Gran (auto) Absolute Neuts (auto) Absolute Nucleated RBC Nucleated RBC % (auto) Smear Tech's Comments ESR PT INR APTT Hold Blue Top Sodium Potassium Chloride Carbon Dioxide Anion Gap BUN Creatinine Estim Creat Clear Calc Estimated GFR POC Glucose 169 H 175 H 217 H Random Glucose Fasting Glucose Estimat Average Glucose Hemoglobin A1c % Lactic Acid Lactic Acid Fup @ 2Hr Calcium Magnesium Total Bilirubin Direct Bilirubin AST ALT Alkaline Phosphatase C-Reactive Protein Total Protein Albumin Urine Color Urine Appearance Urine pH Ur Specific [place] Urine Protein Urine Glucose (UA) Urine Ketones Urine Blood Urine Nitrite Ur Leukocyte Esterase Urine RBC Urine WBC Ur Squamous Epith Cells Urine Bacteria Vancomycin Trough COVID-19 ([facility]) COVID-19 Clin Com 05/09/20 05/10/20 05/10/20 20:02 08:48 12:31 WBC RBC Hgb Hct MCV MCH MCHC RDW Plt Count MPV Immature Gran % (Auto) Neut % (Auto) Lymph % (Auto) [place] % (Auto) Eos % (Auto) Baso % (Auto) Lymph # (Auto) [place] # (Auto) Eos # (Auto) Baso # (Auto) Abs Immat Gran (auto) Absolute Neuts (auto) Absolute Nucleated RBC Nucleated RBC % (auto) Smear Tech's Comments ESR PT INR APTT Hold Blue Top Sodium Potassium Chloride Carbon Dioxide Anion Gap BUN Creatinine Estim Creat Clear Calc Estimated GFR POC Glucose 179 H 244 H 208 H Random Glucose Fasting Glucose Estimat Average Glucose Hemoglobin A1c % Lactic Acid Lactic Acid Fup @ 2Hr Calcium Magnesium Total Bilirubin Direct Bilirubin AST ALT Alkaline Phosphatase C-Reactive Protein Total Protein Albumin Urine Color Urine Appearance Urine pH Ur Specific [place] Urine Protein Urine Glucose (UA) Urine Ketones Urine Blood Urine Nitrite Ur Leukocyte Esterase Urine RBC Urine WBC Ur Squamous Epith Cells Urine Bacteria Vancomycin Trough COVID-19 ([facility]) COVID-19 Clin Com Airway Mallampati Class: II TM Dist: >3cm Neck ROM: Full Denture: Upper and Lower
--- NOTE | 2020-05-10 13:44 | MHC.CM.PN ---
Patient had an angioplasy yesterday to LLE, improved perfusion. Patient went to OR today to have foot wounds debrided. Patient is on IV Zosyn for wound infection. PT will see patient tomorrow and discuss discharge plan from there. CM will continue to follow patient for discharge needs.
[2020-05-10 13:48] LABS: Vancomycin Trough 18.5 mcg/mL (10.0-20.0)
--- NOTE | 2020-05-10 14:46 | W.PM.OPN ---
Operative Note Operative Note Date of Service: 05/10/20 Narrative: Prep diagnosis: Diabetic ulcers bilateral feet Postoperative diagnosis: Same Procedure: Debridement of bilateral diabetic foot ulcers Surgeon: Uriel Yin MD Ag Equipment Field Service Technician: None Anesthesia: Mac Indications: 74-year-old male patient with necrotic ulcers of bilateral feet with history of diabetes mellitus and peripheral vascular disease. Operative findings: Bilateral areas of necrotic skin including a large heel ulcer of the left foot and multiple smaller areas of necrosis on the lateral right foot. Specimen: Necrotic skin bilateral feet Estimated blood loss: 10 mL Complications: None Procedure details: Patient was brought to the OR and placed in a supine position. After administering light sedation patient's bilateral feet were prepped with Betadine and draped in a sterile fashion. A surgical time-out was called and the consent confirmed. Patient received preoperative antibiotics and no vena dyne boots were placed. Scalpel was used to debride the left heel ulcer with an ulcer measuring approximately 10 x 10 cm extending through skin dermis and subcutaneous tissue. No debridement of bone was performed. Ulcer was approximately 1 cm deep in the central portion. Bone is palpable at the base of the ulcer. Bleeding was noted from the margins of the wound. No undrained abscess was encountered. Pressure was held to maintain hemostasis. Attention was then directed to the right foot were again several small ulcers in the lateral foot were identified each measuring approximately 2 cm in diameter. There were 3 of these ulcers which were debrided of skin, subcutaneous tissue, and tendon sheath. Once again no bone was debrided at this time. Hemostasis was assured using light pressure. The wounds were then cleaned with saline solution. Xeroform dressings were then applied to both foot wounds followed by fluffed gauze, ABD pad, Kerlix, and 4 in Jose bandage. Patient tolerated the procedure well. Sponge, instrument, needle counts reported as correct. As the patient is COVID positive, he was recovered in OR room 5 and then transferred [place] his [place] [facility] [place]
[2020-05-10] MEDS: vancomycin HCL 750 MG in 0.9 % Sodium Chloride 250 ML 265 MG IV (15:34)
[2020-05-10] MEDS: Lactated Ringers 1,000 ML 100 ML IVCONT (15:34)
[2020-05-10 16:35] LABS: Glucose, Whole Blood 192 mg/dL (60-115)
[2020-05-10 21:33] LABS: Glucose, Whole Blood 249 mg/dL (60-115)
[2020-05-10] MEDS: Tamsulosin HCL 0.4 MG CAPSULE PO (22:03)
[2020-05-10] MEDS: Brimonidine Tartrate 0.2% Oph 5 ML BOTTLE 1 DROP EYE-BOTH (22:09)
[2020-05-11] VITALS (7 sets, daily range): BP systolic 110–134; BP diastolic 56–63; PULSE 77–97; RESP 18–20; TEMP 36.3–37.1; O2SAT 94–97
[2020-05-11] MEDS: Piperacillin Sodium/Tazobactam 3.375 GM in 0.9 % Sodium Chloride 50 ML IV ×2 (00:01→05:49)
[2020-05-11 06:32] LABS: MANUAL DIFF FLAG NO
[2020-05-11 06:39] LABS: Basophils Percent Auto 0.9 % (0-2); Eosinophils Absolute Auto 0.1 X10*3/uL (0.0-0.4); Eosinophils Percent Auto 2.8 % (0-4); Hemoglobin 8.4 g/dl (14.0-18.0); Imm Gran Abs Auto 0.01 X10*3/uL (0.00-0.03); Imm Gran Pct Auto 0.2 % (0.0-0.4); Lymphocytes Percent Auto 22.3 % (20-40); Mean Corpuscular HGB Conc 31.1 g/dl (31.0-36.0); Mean Corpuscular Hemoglobin 28.2 pg (27.0-33.0); Mean Corpuscular Volume 90.6 fL (80-98); Mean Platelet Volume 8.8 fL (9.4-12.4); Monocytes Absolute Auto 0.5 X10*3/uL (0.1-1.2); Monocytes Percent Auto 9.8 % (2-11); Neutrophils Absolute Auto 2.9 X10*3/uL (2.0-8.3); Platelet Count 302 X10*3/uL (160-400); Red Blood Count 2.98 X10*6/uL (4.60-5.80); Red Cell Distribution Width 15.1 % (11.0-16.0); White Blood Count 4.6 X10*3/uL (4.8-10.8)
[2020-05-11 07:08] LABS: Blood Urea Nitrogen 12 mg/dL (9-16); C Reactive Protein 6.26 mg/dL (< or = 0.50); Creatinine Clr Calc Pharmacy 50.1; Estimated Glomerular Filt Rate > 60; Glucose Random 231 mg/dL (60-115)
[2020-05-11 07:29] LABS: Anion Gap 11 (12-20); Calcium 7.6 mg/dL (8.4-10.2); Carbon Dioxide 28 mmol/L (22-29); Chloride 105 mmol/L (96-108); Potassium 4.9 mmol/L (3.3-5.1); Sodium 139 mmol/L (135-145)
[2020-05-11 07:39] LABS: Glucose, Whole Blood 215 mg/dL (60-115)
[2020-05-11] MEDS: Atorvastatin Calcium 80 MG TABLET PO (08:40)
[2020-05-11] MEDS: Insulin Lispro 100 UNIT/ML 3 ML VIAL SUBCUT ×4 (08:40→21:30)
[2020-05-11] MEDS: Multivitamin TABLET 1 TAB PO (08:40)
[2020-05-11] MEDS: 0.9 % Sodium Chloride Flush 3 ML SYRINGE IVFLUSH ×2 (08:40→17:04)
[2020-05-11] MEDS: Finasteride 5 MG TABLET PO (08:40)
[2020-05-11] MEDS: Aspirin Enteric Coated 81 MG TABLET.DR PO (08:40)
[2020-05-11] MEDS: Heparin Sodium,Porcine 5,000 UNIT/ML VIAL 5000 UNIT SUBCUT ×2 (08:40→21:30)
[2020-05-11] MEDS: Clopidogrel Bisulfate 75 MG TABLET PO (08:41)
[2020-05-11] MEDS: amLODIPine Besylate 5 MG TABLET PO (08:41)
[2020-05-11] MEDS: Insulin Glargine,Hum.rec.anlog 100 UNIT/ML 10 ML VIAL SUBCUT (10:42)
[2020-05-11] MEDS: Amoxicillin/Potassium Clav 875 MG TABLET PO ×2 (10:42→21:31)
[2020-05-11 11:24] LABS: Glucose, Whole Blood 181 mg/dL (60-115)
--- NOTE | 2020-05-11 11:56 | HO.POSTANES ---
Post Anesthesia Evaluation Post Anesthesia Evaluation Vital Signs: Vital Signs Temp Pulse Resp BP Pulse Ox 05/11/20 08:41 78 124/58 L 05/11/20 08:00 98.4 F 77 20 134/63 96 05/11/20 05:16 84 20 119/56 L 96 Anesthesia: Monitored Mental Status: Awake Pain Control: Satisfactory Nausea/Vomiting: None Hydration: Adequate Anesthesia-Related Issues: No Anes. Related Issues
--- NOTE | 2020-05-11 13:44 | P.PNIM_ITS ---
Subjective Subjective Date of Service: 05/11/20 Interval History: pain improved POD #1 no fever no chest pain or dyspnea Physical Exam Vital Signs: Vital Signs: Last Vital Signs Temp 97.3 F 05/11/20 12:00 Pulse 86 05/11/20 12:00 Resp 20 05/11/20 12:00 BP 110/56 L 05/11/20 12:00 Pulse Ox 95 05/11/20 12:50 Body Mass Index 26.6 Gen: in no acute distress HEENT: sclera anicteric, moist mucus membranes Neck: supple Lungs: no respiratory distress, auscultation deferred due to COVID-19 Heart: normal peripheral pulses Abd: soft, non-tender, non-distended Ext: no cyanosis, clubbing, or edema Skin: warm/well-perfused, bilateral heels in dressings Neuro: alert and oriented x3, no focal findings Psych: appropriate affect Objective Data Current Medications Generic Name Dose Route Start Last Admin Trade Name Freq PRN Reason Stop Dose Admin Acetaminophen 650 mg 05/02/20 19:11 05/05/20 12:46 Acetaminophen 325 Mg Tablet PO 650 mg Q6H PRN Administration Pain, Mild (Pain Scale 1-3) Albuterol Sulfate 2 puff 05/02/20 19:11 Albuterol Sulfate 90 Mcg 8 Gm Inhaler INHALE Q4H PRN Shortness Of Breath Or Wheezing Amlodipine Besylate 5 mg 05/03/20 09:00 05/11/20 08:41 Amlodipine Besylate 5 Mg Tablet PO 5 mg DAILY [facility] Administration Protocol Amoxicillin/Clavulanate Potassium 875 mg 05/11/20 11:00 05/11/20 10:42 Amoxicillin/Potassium Clav 875 Mg Tablet PO 875 mg Q12H [facility] Administration Aspirin 81 mg 05/03/20 09:00 05/11/20 08:40 Aspirin Enteric Coated 81 Mg Tablet.Dr PO 81 mg DAILY [facility] Administration Atorvastatin Calcium 80 mg 05/03/20 09:00 05/11/20 08:40 Atorvastatin Calcium 80 Mg Tablet PO 80 mg DAILY [facility] Administration Brimonidine Tartrate 1 drop 05/02/20 21:00 05/11/20 13:33 Brimonidine Tartrate 0.2% Oph 5 Ml Bottle EYE-BOTH Not Given TID [facility] Clopidogrel Bisulfate 75 mg 05/03/20 09:00 05/11/20 08:41 Clopidogrel Bisulfate 75 Mg Tablet PO 75 mg DAILY [facility] Administration Doxycycline Hyclate 100 mg 05/11/20 11:00 05/11/20 10:42 Doxycycline Hyclate 100 Mg Tablet PO 100 mg Q12H [facility] Administration Finasteride 5 mg 05/03/20 09:00 05/11/20 08:40 Finasteride 5 Mg Tablet PO 5 mg DAILY [facility] Administration Fluticasone Propionate 2 spray 05/03/20 09:00 05/11/20 08:59 Fluticasone Propionate Nasal 16 Gm [place] NOSTRIL-B Not Given DAILY [facility] Heparin Sodium (Porcine) 5,000 unit 05/02/20 19:30 05/11/20 08:40 Heparin Sodium,Porcine 5,000 Unit/Ml Vial SUBCUT 5,000 unit Q12H [facility] Administration Insulin Glargine 5 unit 05/11/20 09:15 05/11/20 10:42 Insulin Glargine,Hum.Rec.Anlog 100 Unit/Ml 10 Ml Vial SUBCUT 5 unit DAILY [facility] Administration Insulin Human Lispro 0 unit 05/03/20 20:13 05/11/20 11:41 Insulin Lispro 100 Unit/Ml 3 Ml Vial SUBCUT 2 unit QIDACHS [facility] Administration Protocol Multivitamins/Vitamin C 1 tab 05/03/20 09:00 05/11/20 08:40 Multivitamin Tablet PO 1 tab DAILY [facility] Administration Ondansetron HCl 4 mg 05/02/20 19:11 Ondansetron Hcl 4 Mg/2 Ml Vial IVPUSH Q8H PRN Nausea and Vomiting Sodium Chloride 3 ml 05/03/20 00:00 05/11/20 08:40 0.9 % Sodium Chloride Flush 3 Ml Syringe IVFLUSH 3 ml QSHIFT [facility] Administration Tamsulosin HCl 0.4 mg 05/02/20 21:00 05/10/20 22:03 Tamsulosin Hcl 0.4 Mg Capsule PO 0.4 mg BEDTIME [facility] Administration Labs CBC & Chem 7: 05/11/20 06:20 05/11/20 06:20 Microbiology Microbiology Results: Microbiology 05/02/20 11:33 Blood - Venous Blood Culture - Final No growth after 5 days. 05/02/20 11:53 Blood - Venous Blood Culture - Final Coag negative Staphylococcus 05/02/20 16:17 Ankle Left Gram Stain - Final 05/02/20 16:17 Ankle Left Routine Culture - Final Escherichia coli 05/02/20 19:27 Urine clean catch - Clean Catch Midstream Urine Culture - Final Assessment and Plan (1) Open wnd foot-complicated: Status: Acute Assessment and Plan: hospital d#10 74yo M with DM2 admitted with concern of infected bilateral diabetic foot ulcers resolving COVID-19 infection [place] [facility] [place] # diabetic foot infection with ulcers # peripheral arterial disease - got 9d of pip/norm + vanco, switched to amox/clav + doxy PO d#1 - POD #3 arterioplasty of left peroneal and popliteal arteries. DAPT + statin. - POD #1 debridement of bilateral necrotic ulcers # COVID-19 infection - resolving, diagnosed 04/23/20 # DM2, A1c 8.7 - resume low dose of Lantus, correction-dose Humalog # HTN - continue amlodipine # urinary retention - continue finasteride + tamsulosin, Gaytan in place- will do voiding trial # VTE ppx - UFH # dispo - PT recommends home with VNA - pt at baseline uses electric wheelchair and has [employer] I updated pt's son Alberto by phone. [phone]
[2020-05-11 16:09] LABS: Glucose, Whole Blood 217 mg/dL (60-115)
[2020-05-11 20:07] LABS: Glucose, Whole Blood 211 mg/dL (60-115)
[2020-05-11] MEDS: Brimonidine Tartrate 0.2% Oph 5 ML BOTTLE 1 DROP EYE-BOTH (21:32)
[2020-05-11] MEDS: Tamsulosin HCL 0.4 MG CAPSULE PO (21:32)
[2020-05-12] VITALS (8 sets, daily range): BP systolic 110–138; BP diastolic 56–76; PULSE 72–92; RESP 16–20; TEMP 36.3–36.7; O2SAT 94–98
[2020-05-12] MEDS: 0.9 % Sodium Chloride Flush 3 ML SYRINGE IVFLUSH ×4 (02:24→21:24)
[2020-05-12 06:30] LABS: MANUAL DIFF FLAG NO
[2020-05-12 06:36] LABS: Eosinophils Absolute Auto 0.2 X10*3/uL (0.0-0.4); Eosinophils Percent Auto 3.9 % (0-4); Hematocrit 27.2 % (42-52); Hemoglobin 8.6 g/dl (14.0-18.0); Imm Gran Abs Auto 0.01 X10*3/uL (0.00-0.03); Imm Gran Pct Auto 0.2 % (0.0-0.4); Lymphocytes Absolute Auto 0.9 X10*3/uL (1.2-4.9); Lymphocytes Percent Auto 22.7 % (20-40); Mean Corpuscular HGB Conc 31.6 g/dl (31.0-36.0); Mean Corpuscular Hemoglobin 28.7 pg (27.0-33.0); Mean Corpuscular Volume 90.7 fL (80-98); Monocytes Absolute Auto 0.5 X10*3/uL (0.1-1.2); Monocytes Percent Auto 11.2 % (2-11); Neutrophils Absolute Auto 2.5 X10*3/uL (2.0-8.3); Platelet Count 303 X10*3/uL (160-400); Red Cell Distribution Width 15.1 % (11.0-16.0); White Blood Count 4.1 X10*3/uL (4.8-10.8)
[2020-05-12 06:59] LABS: Anion Gap 10 (12-20); Blood Urea Nitrogen 13 mg/dL (9-16); C Reactive Protein 7.02 mg/dL (< or = 0.50); Calcium 7.6 mg/dL (8.4-10.2); Carbon Dioxide 28 mmol/L (22-29); Chloride 105 mmol/L (96-108); Creatinine Clr Calc Pharmacy 55.9; Estimated Glomerular Filt Rate > 60; Glucose Random 242 mg/dL (60-115); Potassium 4.1 mmol/L (3.3-5.1); Sodium 139 mmol/L (135-145)
[2020-05-12 07:28] LABS: Glucose, Whole Blood 219 mg/dL (60-115)
[2020-05-12] MEDS: Heparin Sodium,Porcine 5,000 UNIT/ML VIAL 5000 UNIT SUBCUT ×2 (10:21→19:49)
[2020-05-12] MEDS: Insulin Lispro 100 UNIT/ML 3 ML VIAL SUBCUT ×3 (10:21→21:23)
[2020-05-12] MEDS: Atorvastatin Calcium 80 MG TABLET PO (10:22)
[2020-05-12] MEDS: Multivitamin TABLET 1 TAB PO (10:23)
[2020-05-12] MEDS: Amoxicillin/Potassium Clav 875 MG TABLET PO ×2 (10:23→22:53)
[2020-05-12] MEDS: Clopidogrel Bisulfate 75 MG TABLET PO (10:23)
[2020-05-12] MEDS: Aspirin Enteric Coated 81 MG TABLET.DR PO (10:24)
[2020-05-12] MEDS: amLODIPine Besylate 5 MG TABLET PO (10:24)
[2020-05-12] MEDS: Finasteride 5 MG TABLET PO (10:25)
[2020-05-12] MEDS: Insulin Glargine,Hum.rec.anlog 100 UNIT/ML 10 ML VIAL SUBCUT (10:26)
--- NOTE | 2020-05-12 11:38 | P.PNIM_ITS ---
Subjective Subjective Date of Service: 05/12/20 Interval History: foot pain improved no fever no cough/dyspnea no chest pain no abd pain/diarrhea/nausea Physical Exam Vital Signs: Vital Signs: Last Vital Signs Temp 98.0 F 05/12/20 10:57 Pulse 72 05/12/20 10:57 Resp 18 05/12/20 10:57 BP 120/76 05/12/20 10:57 Pulse Ox 98 05/12/20 10:57 Body Mass Index 26.6 Gen: in no acute distress HEENT: sclera anicteric, moist mucus membranes Neck: supple Lungs: no respiratory distress, auscultation deferred due to COVID-19 Heart: normal peripheral pulses Abd: soft, non-tender, non-distended Ext: no cyanosis, clubbing, or edema Skin: large, deep ulcer involving the L heel down to bone, approx 10 cm in width and length; 3 ulcers approx 2-3 cm in diameter on the lateral R foot. minimal surrounding erythema Neuro: alert and oriented x3, no focal findings Psych: appropriate affect Objective Data Current Medications Generic Name Dose Route Start Last Admin Trade Name Freq PRN Reason Stop Dose Admin Acetaminophen 650 mg 05/02/20 19:11 05/05/20 12:46 Acetaminophen 325 Mg Tablet PO 650 mg Q6H PRN Administration Pain, Mild (Pain Scale 1-3) Albuterol Sulfate 2 puff 05/02/20 19:11 Albuterol Sulfate 90 Mcg 8 Gm Inhaler INHALE Q4H PRN Shortness Of Breath Or Wheezing Amlodipine Besylate 5 mg 05/03/20 09:00 05/12/20 10:24 Amlodipine Besylate 5 Mg Tablet PO 5 mg DAILY [facility] Administration Protocol Amoxicillin/Clavulanate Potassium 875 mg 05/11/20 11:00 05/12/20 10:23 Amoxicillin/Potassium Clav 875 Mg Tablet PO 875 mg Q12H [facility] Administration Aspirin 81 mg 05/03/20 09:00 05/12/20 10:24 Aspirin Enteric Coated 81 Mg Tablet.Dr PO 81 mg DAILY [facility] Administration Atorvastatin Calcium 80 mg 05/03/20 09:00 05/12/20 10:22 Atorvastatin Calcium 80 Mg Tablet PO 80 mg DAILY [facility] Administration Brimonidine Tartrate 1 drop 05/02/20 21:00 05/12/20 10:25 Brimonidine Tartrate 0.2% Oph 5 Ml Bottle EYE-BOTH Not Given TID [facility] Clopidogrel Bisulfate 75 mg 05/03/20 09:00 05/12/20 10:23 Clopidogrel Bisulfate 75 Mg Tablet PO 75 mg DAILY [facility] Administration Doxycycline Hyclate 100 mg 05/11/20 11:00 05/12/20 10:22 Doxycycline Hyclate 100 Mg Tablet PO 100 mg Q12H [facility] Administration Finasteride 5 mg 05/03/20 09:00 05/12/20 10:25 Finasteride 5 Mg Tablet PO 5 mg DAILY [facility] Administration Fluticasone Propionate 2 spray 05/03/20 09:00 05/12/20 10:26 Fluticasone Propionate Nasal 16 Gm [place] NOSTRIL-B Not Given DAILY [facility] Heparin Sodium (Porcine) 5,000 unit 05/02/20 19:30 05/12/20 10:21 Heparin Sodium,Porcine 5,000 Unit/Ml Vial SUBCUT 5,000 unit Q12H [facility] Administration Insulin Glargine 5 unit 05/11/20 09:15 05/12/20 10:26 Insulin Glargine,Hum.Rec.Anlog 100 Unit/Ml 10 Ml Vial SUBCUT 5 unit DAILY [facility] Administration Insulin Human Lispro 0 unit 05/03/20 20:13 05/12/20 10:21 Insulin Lispro 100 Unit/Ml 3 Ml Vial SUBCUT 4 unit QIDACHS [facility] Administration Protocol Multivitamins/Vitamin C 1 tab 05/03/20 09:00 05/12/20 10:23 Multivitamin Tablet PO 1 tab DAILY [facility] Administration Ondansetron HCl 4 mg 05/02/20 19:11 Ondansetron Hcl 4 Mg/2 Ml Vial IVPUSH Q8H PRN Nausea and Vomiting Sodium Chloride 3 ml 05/03/20 00:00 05/12/20 10:22 0.9 % Sodium Chloride Flush 3 Ml Syringe IVFLUSH 3 ml QSHIFT [facility] Administration Tamsulosin HCl 0.4 mg 05/02/20 21:00 05/11/20 21:32 Tamsulosin Hcl 0.4 Mg Capsule PO 0.4 mg BEDTIME [facility] Administration Labs CBC & Chem 7: 05/12/20 06:01 05/12/20 06:01 Labs: Laboratory Results - last 24 hr 05/11/20 05/11/20 05/12/20 15:41 19:52 06:01 WBC 4.1 L RBC 3.00 L Hgb 8.6 L Hct 27.2 L MCV 90.7 MCH 28.7 MCHC 31.6 RDW 15.1 Plt Count 303 MPV 9.0 L Immature Gran % (Auto) 0.2 Neut % (Auto) 61.0 Lymph % (Auto) 22.7 [place] % (Auto) 11.2 H Eos % (Auto) 3.9 Baso % (Auto) 1.0 Lymph # (Auto) 0.9 L [place] # (Auto) 0.5 Eos # (Auto) 0.2 Baso # (Auto) 0.0 Abs Immat Gran (auto) 0.01 Absolute Neuts (auto) 2.5 Absolute Nucleated RBC 0.000 Nucleated RBC % (auto) 0.0 Sodium Potassium Chloride Carbon Dioxide Anion Gap BUN Creatinine Estim Creat Clear Calc Estimated GFR POC Glucose 217 H 211 H Random Glucose Calcium C-Reactive Protein 05/12/20 05/12/20 06:01 07:19 WBC RBC Hgb Hct MCV MCH MCHC RDW Plt Count MPV Immature Gran % (Auto) Neut % (Auto) Lymph % (Auto) [place] % (Auto) Eos % (Auto) Baso % (Auto) Lymph # (Auto) [place] # (Auto) Eos # (Auto) Baso # (Auto) Abs Immat Gran (auto) Absolute Neuts (auto) Absolute Nucleated RBC Nucleated RBC % (auto) Sodium 139 Potassium 4.1 Chloride 105 Carbon Dioxide 28 Anion Gap 10 L BUN 13 Creatinine 0.94 Estim Creat Clear Calc 55.9 Estimated GFR > 60 POC Glucose 219 H Random Glucose 242 H Calcium 7.6 L C-Reactive Protein 7.02 H Microbiology Microbiology Results: Microbiology 05/02/20 11:33 Blood - Venous Blood Culture - Final No growth after 5 days. 05/02/20 11:53 Blood - Venous Blood Culture - Final Coag negative Staphylococcus 05/02/20 16:17 Ankle Left Gram Stain - Final 05/02/20 16:17 Ankle Left Routine Culture - Final Escherichia coli 05/02/20 19:27 Urine clean catch - Clean Catch Midstream Urine Culture - Final Assessment and Plan (1) Open wnd foot-complicated: Status: Acute Assessment and Plan: hospital d#11 74yo M with DM2 admitted with concern of infected bilateral diabetic foot ulcers resolving COVID-19 infection (admitted to [facility] 1/26-04/26/20) # diabetic foot infection with ulcers # peripheral arterial disease - got 9d of pip/norm + vanco, switched to amox/clav + doxy PO d#2/7 - POD #4 arterioplasty of left peroneal and popliteal arteries by Dr Anderson. continue DAPT + statin. - POD #2 debridement of bilateral necrotic diabetic foot ulcers. the left heel ulcer is down to bone. there is a risk he will end up needing L BKA but hopefully the revascularization procedure will allow the L foot ulcer to heal. I will ask surgery to see him again and also consult Wound Care # COVID-19 infection - resolved, diagnosed 04/23/20, out of the isolation window # DM2, A1c 8.7 - Lantus/Humalog # HTN - continue amlodipine # urinary retention - continue finasteride + tamsulosin, chronic Gaytan # VTE ppx - UFH # dispo - PT recommends home with VNA- will need daily wound care- CM notified - pt at baseline uses electric wheelchair and has [employer]IST I updated pt's son Alberto by phone. [phone]
[2020-05-12 11:42] LABS: Glucose, Whole Blood 242 mg/dL (60-115)
[2020-05-12] MEDS: Brimonidine Tartrate 0.2% Oph 5 ML BOTTLE 1 DROP EYE-BOTH ×2 (14:16→22:53)
[2020-05-12 16:08] LABS: Glucose, Whole Blood 146 mg/dL (60-115)
--- NOTE | 2020-05-12 16:43 | MHC.CM.PN ---
Current DC plan is for pt to go home with resumption of [employer] and new referral to [facility] for daily wound care. [facility] accepted referral and confirmed with pts [employer] that he will be willing to learn. Pt currently awaiting a wound care consult. POssible DC Wednesday. [facility] will need [facility] auth at DC. Pt will need BLS transport
[2020-05-12 20:21] LABS: Glucose, Whole Blood 183 mg/dL (60-115)
[2020-05-12] MEDS: Tamsulosin HCL 0.4 MG CAPSULE PO (21:23)
[2020-05-13] VITALS (9 sets, daily range): BP systolic 105–124; BP diastolic 57–62; PULSE 65–86; RESP 16–18; TEMP 36.3–36.9; O2SAT 93–99; BMI 26.6
[2020-05-13] MEDS: Acetaminophen 325 MG TABLET 650 MG PO ×2 (06:36→14:50)
[2020-05-13 07:12] LABS: Glucose, Whole Blood 190 mg/dL (60-115)
[2020-05-13] MEDS: Insulin Lispro 100 UNIT/ML 3 ML VIAL SUBCUT ×4 (07:19→20:51)
[2020-05-13] MEDS: Heparin Sodium,Porcine 5,000 UNIT/ML VIAL 5000 UNIT SUBCUT ×2 (07:24→19:25)
--- NOTE | 2020-05-13 07:48 | HO.VASCPN ---
Subjective Subjective Date of Service: 05/13/20 Patient reports: no new complaints and feels better Interval history: Pt. has undergone endovacular intervention (pop and peroneal plasty). Subsequent debridement by gen surg. No events Doing well. Physical Exam Vital Signs: Vital Signs: Last Vital Signs Temp 97.6 F 05/13/20 07:37 Pulse 77 05/13/20 07:37 Resp 18 05/13/20 07:37 BP 105/58 L 05/13/20 07:37 Pulse Ox 98 05/13/20 07:37 Body Mass Index 26.6 Const: General: cooperative, healthy appearing and no acute distress Orientation/consciousness: oriented to person, oriented to place and oriented to time HENMT: Head: Yes normal to inspection Neck: Carotids: no bruits Chest: Chest palpation & inspection: normal inspection of the chest Resp: Effort & Inspection: normal respiratory effort and able to speak in complete sentences Auscultation: clear to auscultation bilaterally Cardio: Rate: regular rate Heart sounds: S1 normal heart sound present and S2 normal heart sound present GI: Inspection: Yes normal to inspection Skin: General skin exam: no rashes or lesions noted Wounds: wounds noted (heel dressing) Neuro: General: oriented to person, oriented to place, oriented to time and CN's II-XI intact bilaterally Extrem: General: Yes normal to inspection, Yes full ROM and Yes no clubbing, cyanosis or edema Psych: Appearance: grossly normal and well kempt Speech and movement: Normal speech and movement present Affect: normal affect Progress Note: A&P Assessment and plan (1) PVD (peripheral vascular disease): Problem details: 05/08/2020 - left popliteal and peroneal plasty Status: Acute Assessment and Plan: Stable from vasc perspective. Cont. ASA and plavix on d/c. See me in 2 weeks upon d/c. Cont local wound care per gen Surg. Fall Risk Details Current Medications: Current Medications Generic Name Dose Route Start Last Admin Trade Name Freq PRN Reason Stop Dose Admin Acetaminophen 650 mg 05/02/20 19:11 05/13/20 06:36 Acetaminophen 325 Mg Tablet PO 650 mg Q6H PRN Administration Pain, Mild (Pain Scale 1-3) Albuterol Sulfate 2 puff 05/02/20 19:11 Albuterol Sulfate 90 Mcg 8 Gm Inhaler INHALE Q4H PRN Shortness Of Breath Or Wheezing Amlodipine Besylate 5 mg 05/03/20 09:00 05/12/20 10:24 Amlodipine Besylate 5 Mg Tablet PO 5 mg DAILY [facility] Administration Protocol Amoxicillin/Clavulanate Potassium 875 mg 05/11/20 11:00 05/12/20 22:53 Amoxicillin/Potassium Clav 875 Mg Tablet PO 875 mg Q12H [facility] Administration Aspirin 81 mg 05/03/20 09:00 05/12/20 10:24 Aspirin Enteric Coated 81 Mg Tablet.Dr PO 81 mg DAILY [facility] Administration Atorvastatin Calcium 80 mg 05/03/20 09:00 05/12/20 10:22 Atorvastatin Calcium 80 Mg Tablet PO 80 mg DAILY [facility] Administration Brimonidine Tartrate 1 drop 05/02/20 21:00 05/12/20 22:53 Brimonidine Tartrate 0.2% Oph 5 Ml Bottle EYE-BOTH 1 drop TID [facility] Administration Clopidogrel Bisulfate 75 mg 05/03/20 09:00 05/12/20 10:23 Clopidogrel Bisulfate 75 Mg Tablet PO 75 mg DAILY [facility] Administration Doxycycline Hyclate 100 mg 05/11/20 11:00 05/12/20 22:53 Doxycycline Hyclate 100 Mg Tablet PO 100 mg Q12H [facility] Administration Finasteride 5 mg 05/03/20 09:00 05/12/20 10:25 Finasteride 5 Mg Tablet PO 5 mg DAILY [facility] Administration Fluticasone Propionate 2 spray 05/03/20 09:00 05/12/20 10:26 Fluticasone Propionate Nasal 16 Gm [place] NOSTRIL-B Not Given DAILY [facility] Heparin Sodium (Porcine) 5,000 unit 05/02/20 19:30 05/13/20 07:24 Heparin Sodium,Porcine 5,000 Unit/Ml Vial SUBCUT 5,000 unit Q12H [facility] Administration Insulin Glargine 10 unit 05/13/20 09:00 Insulin Glargine,Hum.Rec.Anlog 100 Unit/Ml 10 Ml Vial SUBCUT DAILY [facility] Insulin Human Lispro 0 unit 05/03/20 20:13 05/13/20 07:19 Insulin Lispro 100 Unit/Ml 3 Ml Vial SUBCUT 2 unit QIDACHS [facility] Administration Protocol Multivitamins/Vitamin C 1 tab 05/03/20 09:00 05/12/20 10:23 Multivitamin Tablet PO 1 tab DAILY [facility] Administration Ondansetron HCl 4 mg 05/02/20 19:11 Ondansetron Hcl 4 Mg/2 Ml Vial IVPUSH Q8H PRN Nausea and Vomiting Sodium Chloride 3 ml 05/03/20 00:00 05/12/20 21:24 0.9 % Sodium Chloride Flush 3 Ml Syringe IVFLUSH 3 ml QSHIFT [facility] Administration Tamsulosin HCl 0.4 mg 05/02/20 21:00 05/12/20 21:23 Tamsulosin Hcl 0.4 Mg Capsule PO 0.4 mg BEDTIME [facility] Administration Time Spent With Patient Time: Total time spent is greater than 50% in coordination of care (as documented) at patient's floor/unit and/or counseling patient: Time with patient: 15 - 24 minutes
[2020-05-13] MEDS: Multivitamin TABLET 1 TAB PO (08:03)
[2020-05-13] MEDS: Finasteride 5 MG TABLET PO (08:03)
[2020-05-13] MEDS: Clopidogrel Bisulfate 75 MG TABLET PO (08:04)
[2020-05-13] MEDS: Atorvastatin Calcium 80 MG TABLET PO (08:04)
[2020-05-13] MEDS: amLODIPine Besylate 5 MG TABLET PO (08:05)
[2020-05-13] MEDS: Insulin Glargine,Hum.rec.anlog 100 UNIT/ML 10 ML VIAL 10 UNIT SUBCUT (08:05)
[2020-05-13] MEDS: 0.9 % Sodium Chloride Flush 3 ML SYRINGE IVFLUSH ×3 (08:06→20:51)
[2020-05-13] MEDS: Aspirin Enteric Coated 81 MG TABLET.DR PO (08:06)
[2020-05-13] MEDS: Brimonidine Tartrate 0.2% Oph 5 ML BOTTLE 1 DROP EYE-BOTH ×3 (08:12→20:55)
[2020-05-13] MEDS: Fluticasone Propionate Nasal 16 GM SPRAY 2 SPRAY NOSTRIL-B (09:46)
[2020-05-13 11:04] LABS: Glucose, Whole Blood 186 mg/dL (60-115)
[2020-05-13] MEDS: Amoxicillin/Potassium Clav 875 MG TABLET PO (11:57)
--- NOTE | 2020-05-13 11:57 | HO.PM.IMPN ---
Subjective Subjective Date of Service: 05/13/20 Interval History: no complaints Cardiovascular Cardiovascular: Reports no additional cardiovascular complaints Respiratory Respiratory: Reports no additional respiratory complaints Physical Exam Vital Signs: Vital Signs: Last Vital Signs Temp 97.5 F 05/13/20 11:28 Pulse 72 05/13/20 11:28 Resp 18 05/13/20 11:28 BP 118/59 L 05/13/20 11:28 Pulse Ox 99 05/13/20 11:28 Body Mass Index 26.6 General: AO X 3, no acute distress Resp: CTA bilateral CVS: S1,S2,RRR GI: soft, non tender, non distended Neuro: motor grossly intact Psych: appropriate affect Objective Data Current Medications Generic Name Dose Route Start Last Admin Trade Name Freq PRN Reason Stop Dose Admin Acetaminophen 650 mg 05/02/20 19:11 05/13/20 06:36 Acetaminophen 325 Mg Tablet PO 650 mg Q6H PRN Administration Pain, Mild (Pain Scale 1-3) Albuterol Sulfate 2 puff 05/02/20 19:11 Albuterol Sulfate 90 Mcg 8 Gm Inhaler INHALE Q4H PRN Shortness Of Breath Or Wheezing Amlodipine Besylate 5 mg 05/03/20 09:00 05/13/20 08:05 Amlodipine Besylate 5 Mg Tablet PO 5 mg DAILY RENETTA Administration Protocol Amoxicillin/Clavulanate Potassium 875 mg 05/11/20 11:00 05/13/20 11:57 Amoxicillin/Potassium Clav 875 Mg Tablet PO 875 mg Q12H RENETTA Administration Aspirin 81 mg 05/03/20 09:00 05/13/20 08:06 Aspirin Enteric Coated 81 Mg Tablet. PO 81 mg DAILY RENETTA Administration Atorvastatin Calcium 80 mg 05/03/20 09:00 05/13/20 08:04 Atorvastatin Calcium 80 Mg Tablet PO 80 mg DAILY RENETTA Administration Brimonidine Tartrate 1 drop 05/02/20 21:00 05/13/20 08:12 Brimonidine Tartrate 0.2% Oph 5 Ml Bottle EYE-BOTH 1 drop TID RENETTA Administration Clopidogrel Bisulfate 75 mg 05/03/20 09:00 05/13/20 08:04 Clopidogrel Bisulfate 75 Mg Tablet PO 75 mg DAILY RENETTA Administration Doxycycline Hyclate 100 mg 05/11/20 11:00 05/13/20 11:57 Doxycycline Hyclate 100 Mg Tablet PO 100 mg Q12H RENETTA Administration Finasteride 5 mg 05/03/20 09:00 05/13/20 08:03 Finasteride 5 Mg Tablet PO 5 mg DAILY RENETTA Administration Fluticasone Propionate 2 spray 05/03/20 09:00 05/13/20 09:46 Fluticasone Propionate Nasal 16 Gm [place] NOSTRIL-B 2 spray DAILY RENETTA Administration Heparin Sodium (Porcine) 5,000 unit 05/02/20 19:30 05/13/20 07:24 Heparin Sodium,Porcine 5,000 Unit/Ml Vial SUBCUT 5,000 unit Q12H RENETTA Administration Insulin Glargine 10 unit 05/13/20 09:00 05/13/20 08:05 Insulin Glargine,Hum.Rec.Anlog 100 Unit/Ml 10 Ml Vial SUBCUT 10 unit DAILY RENETTA Administration Insulin Human Lispro 0 unit 05/03/20 20:13 05/13/20 11:57 Insulin Lispro 100 Unit/Ml 3 Ml Vial SUBCUT 2 unit QIDACHS [facility] Administration Protocol Multivitamins/Vitamin C 1 tab 05/03/20 09:00 05/13/20 08:03 Multivitamin Tablet PO 1 tab DAILY RENETTA Administration Ondansetron HCl 4 mg 05/02/20 19:11 Ondansetron Hcl 4 Mg/2 Ml Vial IVPUSH Q8H PRN Nausea and Vomiting Sodium Chloride 3 ml 05/03/20 00:00 05/13/20 08:06 0.9 % Sodium Chloride Flush 3 Ml Syringe IVFLUSH 3 ml QSHIFT [facility] Administration Tamsulosin HCl 0.4 mg 05/02/20 21:00 05/12/20 21:23 Tamsulosin Hcl 0.4 Mg Capsule PO 0.4 mg BEDTIME RENETTA Administration Labs CBC & Chem 7: 05/12/20 06:01 05/12/20 06:01 Microbiology Microbiology Results: Microbiology 05/02/20 11:33 Blood - Venous Blood Culture - Final No growth after 5 days. 05/02/20 11:53 Blood - Venous Blood Culture - Final Coag negative Staphylococcus 05/02/20 16:17 Ankle Left Gram Stain - Final 05/02/20 16:17 Ankle Left Routine Culture - Final Escherichia coli 05/02/20 19:27 Urine clean catch - Clean Catch Midstream Urine Culture - Final Assessment and Plan (1) Open wnd foot-complicated: Status: Acute Assessment and Plan: hospital d#12 74yo M with DM2 admitted with concern of infected bilateral diabetic foot ulcers resolving COVID-19 infection (admitted to [facility] 04/23-04/26/20) diabetic foot infection with ulcers peripheral arterial disease - got 9d of pip/norm + vanco, switched to amox/clav + doxy PO d#3/7 - POD #5 arterioplasty of left peroneal and popliteal arteries by Dr Anderson. continue DAPT + statin. - POD #3 debridement of bilateral necrotic diabetic foot ulcers. the left heel ulcer is down to bone. there is a risk he will end up needing L BKA but hopefully the revascularization procedure will allow the L foot ulcer to heal. follow up Wound Care COVID-19 infection - resolved, diagnosed 04/23/20, out of the isolation window DM2, A1c 8.7 - Lantus/Humalog HTN - continue amlodipine urinary retention - continue finasteride + tamsulosin, chronic Gaytan VTE ppx - UFH
--- NOTE | 2020-05-13 13:29 | HO.WOUNDCONS ---
History of Present Illness Data of Consult Service Date: 05/13/20 Requesting physician: Richy Rivera Primary Care Provider: MD CHILO Mcmanus Reason for consult: Right lateral foot wounds 74-year-old male known to the wound clinic who was instructed to go to the emergency department when a foul smelling odor from the foot associated with black eschar of the heel. He was admitted. Was seen by Dr. Ingram and had a surgical debridement of the necrotic left heel. Prior to surgical debridement a left arterioplasty of the peroneal and posterior tibial arteries was done by Dr. Anderson. He was on Zosyn for 9 days. He was seen by Dr. Ibarra and switched to Augmentin and doxycycline to complete a 7 day course. He feels good. He has pain more so on the right foot where nonsurgical DFU are located compared to the surgical left foot. His history of chronic kidney disease and hypertension. [facility] Medical History Arthritis Asthma Candidiasis of penis Cholelithiasis Diabetes mellitus, type 2 Diverticulosis Hiatal hernia Hydronephrosis Hyperlipidemia Hypertension Sepsis Severe sepsis Wheelchair dependence Surgical History H/O hernia repair Social History Household Members: Other Housing: Apartment Alcohol intake: unknown Smoking Status: Never smoker Second Hand Smoke Exposure: No service: No Current occupational status: disabled Meds Allergies Allergy/AdvReac Type Severity Reaction Status Date / Time No Known Allergies Allergy Unverified 12/14/19 18:22 [No Known Allergies*] Active Medications: Current Medications Generic Name Dose Route Start Last Admin Trade Name Freq PRN Reason Stop Dose Admin Acetaminophen 650 mg 05/02/20 19:11 05/13/20 06:36 Acetaminophen 325 Mg Tablet PO 650 mg Q6H PRN Administration Pain, Mild (Pain Scale 1-3) Albuterol Sulfate 2 puff 05/02/20 19:11 Albuterol Sulfate 90 Mcg 8 Gm Inhaler INHALE Q4H PRN Shortness Of Breath Or Wheezing Amlodipine Besylate 5 mg 05/03/20 09:00 05/13/20 08:05 Amlodipine Besylate 5 Mg Tablet PO 5 mg DAILY RENETTA Administration Protocol Amoxicillin/Clavulanate Potassium 875 mg 05/11/20 11:00 05/13/20 11:57 Amoxicillin/Potassium Clav 875 Mg Tablet PO 875 mg Q12H RENETTA Administration Aspirin 81 mg 05/03/20 09:00 05/13/20 08:06 Aspirin Enteric Coated 81 Mg Tablet.Dr PO 81 mg DAILY RENETTA Administration Atorvastatin Calcium 80 mg 05/03/20 09:00 05/13/20 08:04 Atorvastatin Calcium 80 Mg Tablet PO 80 mg DAILY RENETTA Administration Brimonidine Tartrate 1 drop 05/02/20 21:00 05/13/20 08:12 Brimonidine Tartrate 0.2% Oph 5 Ml Bottle EYE-BOTH 1 drop TID RENETTA Administration Clopidogrel Bisulfate 75 mg 05/03/20 09:00 05/13/20 08:04 Clopidogrel Bisulfate 75 Mg Tablet PO 75 mg DAILY RENETTA Administration Doxycycline Hyclate 100 mg 05/11/20 11:00 05/13/20 11:57 Doxycycline Hyclate 100 Mg Tablet PO 100 mg Q12H RENETTA Administration Finasteride 5 mg 05/03/20 09:00 05/13/20 08:03 Finasteride 5 Mg Tablet PO 5 mg DAILY RENETTA Administration Fluticasone Propionate 2 spray 05/03/20 09:00 05/13/20 09:46 Fluticasone Propionate Nasal 16 Gm [place] NOSTRIL-B 2 spray DAILY RENETTA Administration Heparin Sodium (Porcine) 5,000 unit 05/02/20 19:30 05/13/20 07:24 Heparin Sodium,Porcine 5,000 Unit/Ml Vial SUBCUT 5,000 unit Q12H RENETTA Administration Insulin Glargine 10 unit 05/13/20 09:00 05/13/20 08:05 Insulin Glargine,Hum.Rec.Anlog 100 Unit/Ml 10 Ml Vial SUBCUT 10 unit DAILY RENETTA Administration Insulin Human Lispro 0 unit 05/03/20 20:13 05/13/20 11:57 Insulin Lispro 100 Unit/Ml 3 Ml Vial SUBCUT 2 unit QIDACHS RENETTA Administration Protocol Multivitamins/Vitamin C 1 tab 05/03/20 09:00 05/13/20 08:03 Multivitamin Tablet PO 1 tab DAILY RENETTA Administration Ondansetron HCl 4 mg 05/02/20 19:11 Ondansetron Hcl 4 Mg/2 Ml Vial IVPUSH Q8H PRN Nausea and Vomiting Sodium Chloride 3 ml 05/03/20 00:00 05/13/20 08:06 0.9 % Sodium Chloride Flush 3 Ml Syringe IVFLUSH 3 ml QSHIFT RENETTA Administration Tamsulosin HCl 0.4 mg 05/02/20 21:00 05/12/20 21:23 Tamsulosin Hcl 0.4 Mg Capsule PO 0.4 mg BEDTIME RENETTA Administration Home Medications Medication Instructions Recorded Confirmed Last Taken Type Lantus Solostar U-100 Insulin 35 unit SUBCUT BEDTIME 01/01/20 05/02/20 05/01/20 History albuterol sulfate 2 puff PO Q4-6H PRN 01/01/20 05/02/20 Unknown History amlodipine 5 mg PO DAILY 01/01/20 05/02/20 05/01/20 History clopidogrel 75 mg PO DAILY 01/01/20 05/02/20 05/01/20 History glimepiride 1 mg PO DAILY 01/01/20 05/02/20 05/01/20 History atorvastatin 80 mg tablet 80 mg PO DAILY 02/12/20 05/02/20 05/01/20 History aspirin 81 mg PO DAILY 05/02/20 05/02/20 05/01/20 History brimonidine 1 drp OPHTHALMIC (EYE) TID 05/02/20 05/02/20 05/01/20 History finasteride 5 mg PO DAILY 05/02/20 05/02/20 05/01/20 History fluticasone propionate [Flonase] 2 spray INTRANASAL DAILY 05/02/20 05/02/20 05/01/20 History melatonin 3 mg PO BEDTIME 05/02/20 05/02/20 05/01/20 History multivitamin [Daily-Casa] 1 tab PO DAILY 05/02/20 05/02/20 05/01/20 History sulfamethoxazole-trimethoprim 1 tab PO Q12H 05/02/20 05/02/20 05/01/20 History [SMZ-TMP DS] tamsulosin 0.4 mg PO BEDTIME 05/02/20 05/02/20 05/01/20 History Physical Exam Vital Signs and Narrative: Vital Signs: Last Vital Signs Temp 97.5 F 05/13/20 11:28 Pulse 72 05/13/20 11:28 Resp 18 05/13/20 11:28 BP 118/59 L 05/13/20 11:28 Pulse Ox 99 05/13/20 11:28 Body Mass Index 26.6 The left surgical dressing was not removed. The nurse was present for my examination. The right Jose wrap was removed. Xeroform was removed from the lateral foot wounds which are necrotic. The lateral malleolus is dry gangrene. The lateral 5th MTP wound is dry gangrene. The lateral midfoot wound is open without significant granulation. There is discoloration of the dorsum of the foot, brawny in appearance. There is no coldness. There is impaired capillary refill with pallor of the distal toes. I am able to obtain both dorsalis pedis and posterior tibial signals with Doppler. A photograph from the past shows a medial right calcaneal ulcer which does not appear to be present on this examination. There does not appear to be a wound opening or eschar on the medial calcaneus. 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 The Xeroform that is being utilized is helpful because that is non stick. I would continue with this. He will need complete vascular workup at the descrestion of Dr. Anderson for right foot wounds, ischemic in nature. A transition to Betadine paint could be considered to the lateral malleolus and lateral 5th MTP wound after he is discharged. The underlying root of these wounds should be identified before making significant changes to his care plan from a wound care perspective. Followup with Dr. Ingram for the left foot. Followup with Dr. Anderson for bilateral vasculopathy.
[2020-05-13 13:49] LABS: Vancomycin Trough 5.5 mcg/mL (10.0-20.0)
--- NOTE | 2020-05-13 15:50 | MHC.CLN ---
RE: CONSULT WILL START SHEREE AND GLUCERNA BID TO PROMOTE WOUND HEALING FOLLOWING
[2020-05-13 16:12] LABS: Glucose, Whole Blood 239 mg/dL (60-115)
[2020-05-13 20:36] LABS: Glucose, Whole Blood 237 mg/dL (60-115)
[2020-05-13] MEDS: Tamsulosin HCL 0.4 MG CAPSULE PO (20:50)
[2020-05-14] MEDS: Amoxicillin/Potassium Clav 875 MG TABLET PO ×2 (00:42→10:51)
[2020-05-14 03:11] VITALS: BP 128/58; PULSE 80; RESP 16; TEMP 36.7; O2SAT 97
[2020-05-14 07:11] LABS: Glucose, Whole Blood 122 mg/dL (60-115)
[2020-05-14 07:32] VITALS: BP 114/55; PULSE 90; RESP 18; TEMP 36.6; O2SAT 98
[2020-05-14 08:36] VITALS: BP 114/55; PULSE 90
[2020-05-14] MEDS: Heparin Sodium,Porcine 5,000 UNIT/ML VIAL 5000 UNIT SUBCUT (08:36)
[2020-05-14] MEDS: 0.9 % Sodium Chloride Flush 3 ML SYRINGE IVFLUSH (08:36)
[2020-05-14] MEDS: amLODIPine Besylate 5 MG TABLET PO (08:36)
[2020-05-14] MEDS: Aspirin Enteric Coated 81 MG TABLET.DR PO (08:37)
[2020-05-14] MEDS: Fluticasone Propionate Nasal 16 GM SPRAY 2 SPRAY NOSTRIL-B (08:37)
[2020-05-14] MEDS: Atorvastatin Calcium 80 MG TABLET PO (08:37)
[2020-05-14] MEDS: Insulin Glargine,Hum.rec.anlog 100 UNIT/ML 10 ML VIAL 10 UNIT SUBCUT (08:37)
[2020-05-14] MEDS: Finasteride 5 MG TABLET PO (08:37)
[2020-05-14] MEDS: Clopidogrel Bisulfate 75 MG TABLET PO (08:37)
[2020-05-14] MEDS: Multivitamin TABLET 1 TAB PO (08:37)
[2020-05-14] MEDS: Brimonidine Tartrate 0.2% Oph 5 ML BOTTLE 1 DROP EYE-BOTH ×2 (08:37→15:26)
[2020-05-14 11:04] LABS: Glucose, Whole Blood 192 mg/dL (60-115)
[2020-05-14 11:13] VITALS: BP 119/72; PULSE 80; RESP 18; TEMP 36.7; O2SAT 99
[2020-05-14] MEDS: Insulin Lispro 100 UNIT/ML 3 ML VIAL SUBCUT (12:49)
--- NOTE | 2020-05-14 13:16 | PM.DS ---
DS: Providers Provider Date of Service: 05/14/20 Date of admission: 05/02/20 19:11 Primary care physician: Maxime Fernandez MD Consults: 05/02/20 19:11 Consult to General Surgery Routine Consulting Provider: Uriel Yin Reason for consultation: Foot wounds, may need debridement Has provider been notified: No 05/03/20 13:19 Consult to Vascular Surgery Routine Consulting Provider: Bird Anderson Reason for consultation: pvd 05/06/20 08:21 Consult to Infectious Diseases Routine Consulting Provider: Nelida Ibarra Reason for consultation: DM foot wound 05/12/20 11:36 Consult to Wound Care Provider Routine Consulting Provider: Gem Bee Reason for consultation: necrotic DFU (3 on L, 1 on R) s/p debridement, R one is down to bone, DS: Diagnosis Discharge Diagnosis (1) 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: Status: Acute Problem details: Right lateral foot wounds with dry eschar DS: Medications Discharge Medications Home Medications: Home Medications Medication Instructions Recorded Confirmed Lantus Solostar U-100 Insulin 35 unit SUBCUT BEDTIME 01/01/20 05/02/20 albuterol sulfate 2 puff PO Q4-6H PRN 01/01/20 05/02/20 amlodipine 5 mg PO DAILY 01/01/20 05/02/20 clopidogrel 75 mg PO DAILY 01/01/20 05/02/20 glimepiride 1 mg PO DAILY 01/01/20 05/02/20 atorvastatin 80 mg tablet 80 mg PO DAILY 02/12/20 05/02/20 aspirin 81 mg PO DAILY 05/02/20 05/02/20 brimonidine 1 drp OPHTHALMIC (EYE) TID 05/02/20 05/02/20 finasteride 5 mg PO DAILY 05/02/20 05/02/20 fluticasone propionate 2 spray INTRANASAL DAILY 05/02/20 05/02/20 melatonin 3 mg PO BEDTIME 05/02/20 05/02/20 multivitamin [Daily-Casa] 1 tab PO DAILY 05/02/20 05/02/20 tamsulosin 0.4 mg PO BEDTIME 05/02/20 05/02/20 Previous Rx's Medication Instructions Recorded amoxicillin-pot clavulanate 875 mg PO Q12H #10 tab 05/14/20 doxycycline hyclate 100 mg PO Q12H #10 tab 05/14/20 DS: Summary Hospital Course Hospital Course: Patient was admitted for diabetic/vascular foot ulcer. He was treated with vancomycin and Zosyn for 9 days and then transition to p.o. doxy and Augmentin for total of 7 days (he has 5 days remaining.). Patient underwent a tube plasty of left prone you on popliteal arteries by Dr. Anderson. He will continue on aspirin statin and Plavix. He also underwent debridement of bilateral necrotic foot ulcers. He was seen by wound care who recommended transition to Betadine paint to the lateral malleolus and lateral 5th MTP wound after he is discharged. Is unclear if this will heal on its own. He may need BKA in the future. Time Spent with Patient Time attestation: Total time spent providing and/or coordinating discharge services: Discharge coordination time: Greater than 30 minutes Physical Exam Vital Signs: Vital Signs: Last Vital Signs Temp 98.1 F 05/14/20 11:13 Pulse 80 05/14/20 11:13 Resp 18 05/14/20 11:13 BP 119/72 05/14/20 11:13 Pulse Ox 99 05/14/20 11:13 Body Mass Index 26.6 General: AO X 3, no acute distress Resp: CTA bilateral CVS: S1,S2,RRR GI: soft, non tender, non distended Neuro: motor grossly intact Psych: appropriate affect DS: Data Data Completed and Pending Pending studies at discharge: Pending at discharge 05/10/20 14:47 Surgical [PTH] Routine Labs on day of discharge: Laboratory Results - last 24 hr 05/13/20 05/13/20 05/13/20 12:59 16:02 20:30 POC Glucose 239 H 237 H Vancomycin Trough 5.5 L 05/14/20 05/14/20 06:58 10:55 POC Glucose 122 H 192 H Vancomycin Trough Discharge Plan Discharge Patient Disposition: Home Health Service Referrals: [facility] [Outside] Name,MD Maxime [Primary Care Provider] - Discharge Medications: New doxycycline hyclate 100 mg Tablet 100 mg PO Q12H Qty: 10 RF: 0 amoxicillin-pot clavulanate 875-125 mg Tablet 875 mg PO Q12H Qty: 10 RF: 0 Continued clopidogrel 75 mg tablet 75 mg PO DAILY RF: 0 Hold Instructions: Resume on 01/09/20. Hold Plavix until Wednesday, if patient still has hematuria discussed with PCP for further use. amlodipine 5 mg tablet 5 mg PO DAILY RF: 0 glimepiride 1 mg tablet 1 mg PO DAILY RF: 0 albuterol sulfate 90 mcg/actuation HFA aerosol inhaler 2 puff PO Q4-6H PRN (Reason: Shortness Of Breath Or Wheezing) RF: 0 Lantus Solostar U-100 Insulin 100 unit/mL (3 mL) insulin pen 35 unit subcut BEDTIME RF: 0 multivitamin [Daily-Casa] Tablet 1 tab PO DAILY RF: 0 aspirin 81 mg Tablet,Delayed Release (Dr/Ec) 81 mg PO DAILY RF: 0 tamsulosin 0.4 mg Capsule 0.4 mg PO BEDTIME RF: 0 finasteride 5 mg Tablet 5 mg PO DAILY RF: 0 melatonin 3 mg Capsule 3 mg PO BEDTIME RF: 0 brimonidine 0.2 % Drops 1 drp OPHTHALMIC (EYE) TID RF: 0 fluticasone propionate 50 mcg/actuation [place],Suspension 2 spray INTRANASAL DAILY RF: 0 atorvastatin 80 mg tablet 80 mg PO DAILY RF: 0 Discontinued sulfamethoxazole-trimethoprim [SMZ-TMP DS] 800-160 mg Tablet 1 tab PO Q12H RF: 0 Discharge Orders: Discharge Order (Routine); Ordered 05/14/20 Ordered By: Edis Lin Diet: advance to usual diet Activity on Discharge: As tolerated Stand Alone Forms: Patient Portal Discharge page Care Plan Goals: recovery Health Concerns: foot ulcer Plan of Treatment: continue dapl and statin, antibiotics 5 more days, wound care, close follow up, may need amputation in near future if fails
--- NOTE | 2020-05-14 13:24 | W.MHC.F2F ---
Service Date Service Date: 05/14/20 Reasons for Services Reason for care home: wound care Homebound: Leaving the home is medically contraindicated at this time without the asist of a device and/or another person due th the listed conditions above and below. Certification: Based on the above findings, I certify that this patient is confined to the home and needs intermittent care home care, physical therapy and/or speech therapy, or continues to need occupational therapy. The patient is under my care, and I have initiated the establishment of the plan of care. The patient will be followed by a physician who will periodically review the plan of care.
--- NOTE | 2020-05-14 13:28 | MHC.CM.PN ---
Patient is being discharged home today at 4pm [employer] will provide transport. ASHLEY spoke with Ally at [facility] [place] to refer to [facility] for daily wound care. Patient will have services from [facility] who are aware of discharge. Nurse and son Alberto are all aware of discharge.
[2020-05-14 13:59] VITALS: O2SAT 95
--- NOTE | 2020-05-14 15:51 | PM.PNGS ---
Subjective Subjective Date of Service: 05/14/20 Interval history: Patient reports pain in his right foot, denies symptoms in the left foot Physical Exam Vital Signs: Vital Signs: Last Vital Signs Temp 98.1 F 05/14/20 11:13 Pulse 80 05/14/20 11:13 Resp 18 05/14/20 11:13 BP 119/72 05/14/20 11:13 Pulse Ox 95 05/14/20 13:59 Body Mass Index 26.6 Const: General: cooperative, no acute distress, alert and awake Resp: Effort & Inspection: normal respiratory effort and not tachypneic Skin: Other: Warm and dry, no rashes Extrem: Other: Bilateral foot dressings changed this morning. Left heel ulcer reveals no evidence of healing but some bloody discharge from the margins. Bone is noted at the base of the wound. No granulation tissue is noted. Wounds dressed with silver calcium alginate dry sterile dressings. Right foot reveals some mild erythema with necrotic changes in the forefoot which is new from previous examination. Areas of debridement show no evidence of healing. Wounds were redressed with Xeroform and dry sterile dressings. Patient is foot elevated to remove all pressure for the heel. Progress Note: A&P Assessment and plan (1) PVD (peripheral vascular disease): Problem details: 05/08/2020 - left popliteal and peroneal plasty Status: Acute Assessment and Plan: 74-year-old male patient with known history of peripheral vascular disease status post angioplasty of left leg now with evidence of vascular disease of the right leg as well. Status post debridement of the bilateral heel ulcers without significant evidence of healing at this point. Will continue to monitor wound healing. Patient is at risk for limb loss bilaterally. Continue daily bilateral foot dressing changes. All pressure should be taken off the heel at all times. Fall Risk Details Current Medications: Current Medications Generic Name Dose Route Start Last Admin Trade Name Freq PRN Reason Stop Dose Admin Acetaminophen 650 mg 05/02/20 19:11 05/13/20 14:50 Acetaminophen 325 Mg Tablet PO 650 mg Q6H PRN Administration Pain, Mild (Pain Scale 1-3) Albuterol Sulfate 2 puff 05/02/20 19:11 Albuterol Sulfate 90 Mcg 8 Gm Inhaler INHALE Q4H PRN Shortness Of Breath Or Wheezing Amlodipine Besylate 5 mg 05/03/20 09:00 05/14/20 08:36 Amlodipine Besylate 5 Mg Tablet PO 5 mg DAILY RENETTA Administration Protocol Amoxicillin/Clavulanate Potassium 875 mg 05/11/20 11:00 05/14/20 10:51 Amoxicillin/Potassium Clav 875 Mg Tablet PO 875 mg Q12H RENETTA Administration Aspirin 81 mg 05/03/20 09:00 05/14/20 08:37 Aspirin Enteric Coated 81 Mg Tablet.Dr PO 81 mg DAILY RENETTA Administration Atorvastatin Calcium 80 mg 05/03/20 09:00 05/14/20 08:37 Atorvastatin Calcium 80 Mg Tablet PO 80 mg DAILY RENETTA Administration Brimonidine Tartrate 1 drop 05/02/20 21:00 05/14/20 08:37 Brimonidine Tartrate 0.2% Oph 5 Ml Bottle EYE-BOTH 1 drop TID RENETTA Administration Clopidogrel Bisulfate 75 mg 05/03/20 09:00 05/14/20 08:37 Clopidogrel Bisulfate 75 Mg Tablet PO 75 mg DAILY RENETTA Administration Doxycycline Hyclate 100 mg 05/11/20 11:00 05/14/20 10:51 Doxycycline Hyclate 100 Mg Tablet PO 100 mg Q12H RENETTA Administration Finasteride 5 mg 05/03/20 09:00 05/14/20 08:37 Finasteride 5 Mg Tablet PO 5 mg DAILY RENETTA Administration Fluticasone Propionate 2 spray 05/03/20 09:00 05/14/20 08:37 Fluticasone Propionate Nasal 16 Gm [place] NOSTRIL-B 2 spray DAILY RENETTA Administration Heparin Sodium (Porcine) 5,000 unit 05/02/20 19:30 05/14/20 08:36 Heparin Sodium,Porcine 5,000 Unit/Ml Vial SUBCUT 5,000 unit Q12H RENETTA Administration Insulin Glargine 10 unit 05/13/20 09:00 05/14/20 08:37 Insulin Glargine,Hum.Rec.Anlog 100 Unit/Ml 10 Ml Vial SUBCUT 10 unit DAILY RENETTA Administration Insulin Human Lispro 0 unit 05/03/20 20:13 05/14/20 12:49 Insulin Lispro 100 Unit/Ml 3 Ml Vial SUBCUT 2 unit QIDACHS [facility] Administration Protocol Multivitamins/Vitamin C 1 tab 05/03/20 09:00 05/14/20 08:37 Multivitamin Tablet PO 1 tab DAILY RENETTA Administration Ondansetron HCl 4 mg 05/02/20 19:11 Ondansetron Hcl 4 Mg/2 Ml Vial IVPUSH Q8H PRN Nausea and Vomiting Sodium Chloride 3 ml 05/03/20 00:00 05/14/20 08:36 0.9 % Sodium Chloride Flush 3 Ml Syringe IVFLUSH 3 ml QSHIFT RENETTA Administration Tamsulosin HCl 0.4 mg 05/02/20 21:00 05/13/20 20:50 Tamsulosin Hcl 0.4 Mg Capsule PO 0.4 mg BEDTIME RENETTA Administration Time Spent With Patient Time: Total time spent is greater than 50% in coordination of care (as documented) at patient's floor/unit and/or counseling patient: Time with patient: 25 - 35 minutes
== END 2020-05-14 16:10 | disposition home health service (06) | DRG 622 ==
LOC: HO.ED 17:19 → HO.EDOVER 19:50 → HO.IMC 05-03 16:59
PROVIDERS: Family Medicine; Internal Medicine; Nurse Practitioner Acute Care; Physician Assistant; Surgery; Surgery Vascular Surgery; Admitting Provider Internal Medicine; Emergency Provider Emergency Medicine; PCP Internal Medicine Geriatric Medicine; Visit Provider Internal Medicine
PROC: 047N3Z1 Dilation of Left Popliteal Artery using Drug-Coated Balloon, Percutaneous Approach (ICD-10-PCS; principal; 2020-05-08 09:30)
PROC: 0JBR0ZZ Excision of Left Foot Subcutaneous Tissue and Fascia, Open Approach (ICD-10-PCS; principal; 2020-05-10 14:10)
DX: E11.621 Type 2 diabetes mellitus with foot ulcer (principal); U07.1 COVID-19; L97.429 Non-pressure chronic ulcer of left heel and midfoot with unspecified severity; L97.419 Non-pressure chronic ulcer of right heel and midfoot with unspecified severity; E87.2 Acidosis; E78.5 Hyperlipidemia, unspecified; R33.9 Retention of urine, unspecified; I12.9 Hypertensive chronic kidney disease with stage 1 through stage 4 chronic kidney disease, or unspecified chronic kidney disease; E11.22 Type 2 diabetes mellitus with diabetic chronic kidney disease; E11.51 Type 2 diabetes mellitus with diabetic peripheral angiopathy without gangrene; I70.234 Atherosclerosis of native arteries of right leg with ulceration of heel and midfoot; N18.9 Chronic kidney disease, unspecified; D63.1 Anemia in chronic kidney disease; Z96.0 Presence of urogenital implants; Z86.73 Personal history of transient ischemic attack (TIA), and cerebral infarction without residual deficits; Z99.3 Dependence on wheelchair; Z79.4 Long term (current) use of insulin; Z79.02 Long term (current) use of antithrombotics/antiplatelets; Z79.82 Long term (current) use of aspirin; Z79.899 Other long term (current) drug therapy
CPT/HCPCS: 36253; 36415; 37224; 73620; 75630; 76942; 80048; 80076; 80202; 81001; 81003; 82947; 83036; 83605; 83735; 85025; 85610; 85652; 85730; 86140; 87040; 87071; 87077; 87086; 87186; 87205; 87635; 88304; 96365; 96366; 96367; 97163; 99024; 99152; 99153; 99285; C1725; C1760; C1769; C1887; J0690; J2370; J2543; J3010; J3370; J3475; Q9967

== ENCOUNTER 2020-06-04 11:14 | Inpatient (IN) | payer MEDICARE, SELFPAY ==
[2020-06-04] VITALS (7 sets, daily range): BP systolic 128–162; BP diastolic 59–73; PULSE 90–100; RESP 16–20; TEMP 36.3–36.9; O2SAT 91–99
--- NOTE | ~2020-06-04 | XR_ITS ---
EXAMINATION: XR CHEST CLINICAL INFORMATION: Fever COMPARISON: Chest radiographs 02/01/2019 TECHNIQUE: Frontal view of the chest was obtained. FINDINGS: There is subtle groundglass opacities scattered mid zones. There is no lobar or segmental airspace consolidation, hyperinflation, pleural reaction, or effusion. The heart is normal in size. The hilar and mediastinal contours are normal. There are degenerative changes spine bilateral shoulders. XR/XR chest 1V IMPRESSION: Subtle groundglass opacities scattered mid zones suspicious for atypical or viral pneumonia.
--- NOTE | 2020-06-04 11:33 | ED.WOUNDLAC ---
HPI - Wound/Laceration General Chief Complaint: Wound/Laceration Stated Complaint: wound check, fever Time Seen by Provider: 06/04/20 11:33 Source: patient Mode of arrival: wheelchair Limitations: language barrier History of Present Illness HPI narrative: This is a 74-year-old elderly splenic male primarily speaks [place] with history of Arthritis, Asthma, Diabetes mellitus, type 2, Hiatal hernia, Hyperlipidemia, Hypertension as well as other history as noted below who presents as referral from the wound care center with worsening heel wounds patient is familiar to this facility for this he was most recently seen here and mid last month for same infection saw Dr. Anderson vascular had undergone left popliteal and peroneal plasty and subsequently wound debridement by general surgery who is being followed by wound care center here there was discussion previously about having below the knee amputation however there was some resistance with this plan of care and has been getting worse in relation to this foot wound according to wound care at appears worse with more purulent discharge as well necrotic tissue and exposed bone as well over the wound weak and had chills and subjective fever and night sweats. Related Data Home Medications Medication Instructions Recorded Confirmed Lantus Solostar U-100 Insulin 45 unit SUBCUT BEDTIME 01/01/20 06/04/20 albuterol sulfate 2 puff PO Q4-6H PRN 01/01/20 06/04/20 clopidogrel 75 mg PO DAILY 01/01/20 06/04/20 glimepiride 1 mg PO DAILY 01/01/20 06/04/20 atorvastatin 80 mg tablet 80 mg PO DAILY 02/12/20 06/04/20 aspirin 81 mg PO DAILY 05/02/20 06/04/20 finasteride 5 mg PO DAILY 05/02/20 06/04/20 melatonin 3 mg PO BEDTIME PRN 05/02/20 06/04/20 multivitamin [Daily-Casa] 1 tab PO DAILY 05/02/20 06/04/20 tamsulosin 0.4 mg PO BEDTIME 05/02/20 06/04/20 amlodipine 1 tab PO DAILY 06/04/20 06/04/20 gabapentin 1 cap PO DAILY 06/04/20 06/04/20 lactulose 15 ml PO DAILY 06/04/20 06/04/20 Allergies Allergy/AdvReac Type Severity Reaction Status Date / Time No Known Allergies Allergy Verified 06/04/20 11:24 [No Known Allergies*] Review of Systems Review of Systems: Constitutional: No Weight loss, subjective Fever, + Chills, No Fatigue, No Malaise ENT/Mouth: No Hearing loss, No Ear Pain, No Nasal Congestion, No Sinus Pain, No Hoarseness, No sore throat, No Rhinorrhea, No Swallowing Difficulty Eyes: No Eye Pain, No Swelling, No Redness, No Foreign Body, No Discharge, No Vision Changes Cardiovascular: No Chest Pain, No SOB, No Dyspnea on Exertion, No Orthopnea, No Edema, No Palpitations Respiratory: No Cough, No Sputum, No Wheezing, No Smoke Exposure, No Dyspnea Gastrointestinal: No Nausea, No Vomiting, No Diarrhea, No Constipation, No abdominal Pain, No Hematochezia, No Melena Genitourinary: No Dysuria, No Urinary Frequency, No Hematuria, No Urinary Incontinence, No Urgency, No Flank Pain, No Urinary Flow Changes, No Hesitancy Musculoskeletal: No joint pain, No Myalgias, No Joint Swelling Skin: No Skin Lesions, No rash Neuro: No Weakness, No Numbness, No Paresthesias, No Loss of Consciousness, No Dizziness, No Headache Psych: No Social Issues Heme/Lymph: No Bruising, No Bleeding,No Lymphadenopathy Endocrine: No Polyuria, No Polydipsia, No Temperature Intolerance Yes all other systems are reviewed and are negative [facility] Past Medical History Medical History Arthritis Asthma Candidiasis of penis Cholelithiasis Diabetes mellitus, type 2 Diverticulosis Gaytan catheter in place Hiatal hernia Hydronephrosis Hyperlipidemia Hypertension Sepsis Severe sepsis Wheelchair dependence Surgical History H/O hernia repair Social History Social History Household Members: Other Housing: Apartment Alcohol intake: unknown Smoking Status: Never smoker Smoked in Last 30 Days: No Second Hand Smoke Exposure: No Use of substances other than those prescribed or required for medical reasons: No Advance Directives: No Advance Directives Information Provided: No service: No Current occupational status: disabled Physical Exam Vital Signs: Vital Signs: Last Vital Signs Temp 97.8 F 06/04/20 12:27 Pulse 97 06/04/20 12:27 Resp 19 03/09/21 12:27 BP 142/66 H 06/04/20 12:27 Pulse Ox 97 06/04/20 12:27 Body Mass Index 20.0 Reviewed Const: Other: Elderly, frail appearing General: cooperative; No acute distress Orientation/consciousness: patient oriented x3 HENMT: Head: Yes normal to inspection Ears: hearing grossly normal bilaterally Eyes: General: appearance normal, both eyes and all related structures Visual Copeland: normal visual copeland by confrontation Neck: Neck: Yes normal visual inspection, No positive Brudzinski's sign, No positive Kernig's sign and No tender Thyroid: Thyroid normal Chest: Chest palpation & inspection: normal inspection of the chest Resp: Effort & Inspection: normal respiratory effort Auscultation: clear to auscultation bilaterally Cardio: Jugular venous distension: no JVD Rhythm: regular rhythm Heart sounds: S1 normal heart sound present and S2 normal heart sound present GI: Inspection: Yes normal to inspection Palpation (GI): Soft to palpation Percussion: Yes normal to percussion Auscultation: normal bowel sounds : General: Yes no CVA tenderness Back/Spine/Pelvis: Back: no CVA tenderness Skin: General skin exam: no rashes or lesions noted Neuro: General: patient oriented x3 Extrem: Other: Left foot; Right foot; Course Reevaluation(s) Reevaluation #1: 1150 Patient seen directly upon arrival at bedside. Lactic acid blood cultures as well as basic labs ordered. He offers no complaints he has a DIRECTOR VACCINE with him who takes care of him around the clock and his son Alberto is the healthcare proxy. The DIRECTOR VACCINE reports that primarily provides all the care to him and son is not very much involved in father's care at all. Any tells me that he has had some subjective chills fevers and night sweats over the weekend. Will discuss case with General surgery. Reevaluation #2: Labs overall appear at baseline. No signs of sepsis. Hemodynamically stable. Afebrile not tachy. He is status post COVID couple of weeks ago and his x-ray shows findings consistent with this he is otherwise asymptomatic. Given antibiotics admitted to General surgery. Consultations Consultation #1: Wound care provider FLORENTIN hunt called with expect. Consultation #2: [address] Yin [address] Dr. Mazzucco came down and evaluated patient at bedside will admit to service and Medicine will consult. Defer on any imaging of LE. MDM - Wound/Laceration Medical Records Attestation: I reviewed the patient's medical records. Lab Data Attestation: I reviewed the patient's lab results. Result diagrams: 06/04/20 11:58 06/04/20 11:58 Labs: Lab Results 06/04/20 06/04/20 06/04/20 Range/Units 11:58 11:58 11:58 WBC 5.4 (4.8-10.8) X10*3/uL RBC 3.50 L (4.60-5.80) X10*6/uL Hgb 10.2 L (14.0-18.0) g/dl Hct 31.5 L (42-52) % MCV 90.0 (80-98) fL MCH 29.1 (27.0-33.0) pg MCHC 32.4 (31.0-36.0) g/dl RDW 16.2 H (11.0-16.0) % Plt Count 289 (160-400) X10*3/uL MPV 10.4 (9.4-12.4) fL Immature Gran % (Auto) 0.4 (0.0-0.4) % Neut % (Auto) 71.5 (45-73) % Lymph % (Auto) 14.5 L (20-40) % Mathews % (Auto) 8.2 (2-11) % Eos % (Auto) 4.5 H (0-4) % Baso % (Auto) 0.9 (0-2) % Lymph # (Auto) 0.8 L (1.2-4.9) X10*3/uL Mathews # (Auto) 0.4 (0.1-1.2) X10*3/uL Eos # (Auto) 0.2 (0.0-0.4) X10*3/uL Baso # (Auto) 0.1 (0.0-0.2) X10*3/uL Abs Immat Gran (auto) 0.02 (0.00-0.03) X10*3/uL Absolute Neuts (auto) 3.9 (2.0-8.3) X10*3/uL Absolute Nucleated RBC 0.000 (0.0-0.012) X10*3/uL Nucleated RBC % (auto) 0.0 (0.0-0.2) /100WBC PT 12.9 (10.8-13.0) SEC INR 1.1 (0.9-1.1) APTT 35.3 (24.1-38.0) SEC Sodium 138 (135-145) mmol/L Potassium 4.1 (3.3-5.1) mmol/L Chloride 100 (96-108) mmol/L Carbon Dioxide 29 (22-29) mmol/L Anion Gap 13 (12-20) BUN 23 H D (9-16) mg/dL Creatinine 1.05 (0.5-1.4) mg/dL Estim Creat Clear Calc 46.0 Estimated GFR > 60 Random Glucose 256 H (60-115) mg/dL Lactic Acid (0.5-2.0) mmol/L Calcium 8.5 D (8.4-10.2) mg/dL Total Bilirubin 0.2 (0.0-1.0) mg/dL AST 16 (5-37) U/L ALT 28 (0-40) U/L Alkaline Phosphatase 105 D (39-117) U/L Total Protein 6.8 (6.5-8.0) g/dL Albumin 3.1 L D (3.5-5.0) g/dL Urine Color Urine Appearance Urine pH (5.0-8.0) Ur Specific [place] (1.005-1.025) Urine Protein (NEG-TRACE) MG/DL Urine Glucose (UA) (NEG) MG/DL Urine Ketones (NEG) MG/DL Urine Blood (NEG) Urine Nitrite (NEG) Ur Leukocyte Esterase (NEG) Urine RBC (0) /HPF Urine WBC (0-4) /HPF Ur Squamous Epith Cells /LPF Urine Bacteria /LPF COVID-19 ([facility]) (Negative) COVID-19 Clin Com 06/04/20 06/04/20 06/04/20 Range/Units 11:58 11:59 12:24 WBC (4.8-10.8) X10*3/uL RBC (4.60-5.80) X10*6/uL Hgb (14.0-18.0) g/dl Hct (42-52) % MCV (80-98) fL MCH (27.0-33.0) pg MCHC (31.0-36.0) g/dl RDW (11.0-16.0) % Plt Count (160-400) X10*3/uL MPV (9.4-12.4) fL Immature Gran % (Auto) (0.0-0.4) % Neut % (Auto) (45-73) % Lymph % (Auto) (20-40) % Mathews % (Auto) (2-11) % Eos % (Auto) (0-4) % Baso % (Auto) (0-2) % Lymph # (Auto) (1.2-4.9) X10*3/uL Mathews # (Auto) (0.1-1.2) X10*3/uL Eos # (Auto) (0.0-0.4) X10*3/uL Baso # (Auto) (0.0-0.2) X10*3/uL Abs Immat Gran (auto) (0.00-0.03) X10*3/uL Absolute Neuts (auto) (2.0-8.3) X10*3/uL Absolute Nucleated RBC (0.0-0.012) X10*3/uL Nucleated RBC % (auto) (0.0-0.2) /100WBC PT (10.8-13.0) SEC INR (0.9-1.1) APTT (24.1-38.0) SEC Sodium (135-145) mmol/L Potassium (3.3-5.1) mmol/L Chloride (96-108) mmol/L Carbon Dioxide (22-29) mmol/L Anion Gap (12-20) BUN (9-16) mg/dL Creatinine (0.5-1.4) mg/dL Estim Creat Clear Calc Estimated GFR Random Glucose (60-115) mg/dL Lactic Acid 1.0 (0.5-2.0) mmol/L Calcium (8.4-10.2) mg/dL Total Bilirubin (0.0-1.0) mg/dL AST (5-37) U/L ALT (0-40) U/L Alkaline Phosphatase (39-117) U/L Total Protein (6.5-8.0) g/dL Albumin (3.5-5.0) g/dL Urine Color YELLOW Urine Appearance HAZY Urine pH 5.5 (5.0-8.0) Ur Specific [place] 1.020 (1.005-1.025) Urine Protein 2+ H (NEG-TRACE) MG/DL Urine Glucose (UA) 250 H (NEG) MG/DL Urine Ketones NEG (NEG) MG/DL Urine Blood TRACE (NEG) Urine Nitrite NEG (NEG) Ur Leukocyte Esterase NEG (NEG) Urine RBC 0-2 (0) /HPF Urine WBC 0-2 (0-4) /HPF Ur Squamous Epith Cells NONE /LPF Urine Bacteria 1+ /LPF COVID-19 ([facility]) Negative (Negative) COVID-19 Clin Com See Note Imaging Data Chest x-ray: Radiologist's impression: [address] [id number] ReportSigned Patient: Daron KimbleMR#: [id number]: [id number]:[id number]/Sex: 74 / MADM Date: 06/04/20Loc: EDAttending Dr: Ordering Physician: Srini Mena NP Date of Service: 06/04/20 Procedure(s): XR chest 1V Accession Number(s): [id number] cc: Srini Mena CREATIVE SPECIALIST~ EXAMINATION: XR CHEST CLINICAL INFORMATION: Fever COMPARISON: Chest radiographs 02/01/2019 TECHNIQUE: Frontal view of the chest was obtained. FINDINGS: There is subtle groundglass opacities scattered mid zones. There is no lobar or segmental airspace consolidation, hyperinflation, pleural reaction, or effusion. The heart is normal in size. The hilar and mediastinal contours are normal. There are degenerative changes spine bilateral shoulders. XR/XR chest 1V IMPRESSION: Subtle groundglass opacities scattered mid zones suspicious for atypical or viral pneumonia. Dictated By:YAN MCINTYRE MDSigned By:<Electronically signed by YAN MCINTYRE MD in OV>06/04/20 1249 DD/ 1142TD/TT: Two Way Radio Technician: GOPI ECG Data Interpretation: Normal sinus rhythm Rate 97 Normal ECG When compared with ECG of 02-FEB-2019 09:11, Criteria for Septal infarct are no longer Present Discharge Plan Discharge Clinical Impression: Open wnd foot-complicated Patient Disposition: Admitted As Inpatient Prescriptions: No Action amlodipine 5 mg tablet 1 tab PO DAILY RF: 0 gabapentin 100 mg capsule 1 cap PO DAILY RF: 0 lactulose 10 gram/15 mL solution 15 ml PO DAILY RF: 0 clopidogrel 75 mg tablet 75 mg PO DAILY RF: 0 Hold Instructions: Resume on 01/09/20. Hold Plavix until Wednesday, if patient still has hematuria discussed with PCP for further use. glimepiride 1 mg tablet 1 mg PO DAILY RF: 0 albuterol sulfate 90 mcg/actuation HFA aerosol inhaler 2 puff PO Q4-6H PRN (Reason: Shortness Of Breath Or Wheezing) RF: 0 Lantus Solostar U-100 Insulin 100 unit/mL (3 mL) insulin pen 45 unit subcut BEDTIME RF: 0 multivitamin [Daily-Casa] Tablet 1 tab PO DAILY RF: 0 aspirin 81 mg Tablet,Delayed Release (Dr/Ec) 81 mg PO DAILY RF: 0 tamsulosin 0.4 mg Capsule 0.4 mg PO BEDTIME RF: 0 finasteride 5 mg Tablet 5 mg PO DAILY RF: 0 melatonin 3 mg Capsule 3 mg PO BEDTIME PRN (Reason: BEDTIME) RF: 0 atorvastatin 80 mg tablet 80 mg PO DAILY RF: 0
--- NOTE | 2020-06-04 11:42 | ECG_ITS ---
Test Reason : INFECTION Blood Pressure : / mmHG Vent. Rate : 097 BPM Atrial Rate : 097 BPM P-R Int : 134 ms QRS Dur : 078 ms QT Int : 342 ms P-R-T Axes : 030 004 044 degrees QTc Int : 434 ms Normal sinus rhythm Normal ECG When compared with ECG of 02-FEB-2019 09:11, Criteria for Septal infarct are no longer Present Referred By: Srini Mena Electronically Signed By:Seth Ross
[2020-06-04 12:15] LABS: MANUAL DIFF FLAG NO
[2020-06-04 12:16] LABS: Basophils Absolute Auto 0.1 X10*3/uL (0.0-0.2); Basophils Percent Auto 0.9 % (0-2); Eosinophils Absolute Auto 0.2 X10*3/uL (0.0-0.4); Eosinophils Percent Auto 4.5 % (0-4); Hematocrit 31.5 % (42-52); Hemoglobin 10.2 g/dl (14.0-18.0); Imm Gran Abs Auto 0.02 X10*3/uL (0.00-0.03); Imm Gran Pct Auto 0.4 % (0.0-0.4); Lymphocytes Absolute Auto 0.8 X10*3/uL (1.2-4.9); Lymphocytes Percent Auto 14.5 % (20-40); Mean Corpuscular HGB Conc 32.4 g/dl (31.0-36.0); Mean Corpuscular Hemoglobin 29.1 pg (27.0-33.0); Mean Platelet Volume 10.4 fL (9.4-12.4); Monocytes Absolute Auto 0.4 X10*3/uL (0.1-1.2); Monocytes Percent Auto 8.2 % (2-11); Neutrophils Absolute Auto 3.9 X10*3/uL (2.0-8.3); Neutrophils Percent Auto 71.5 % (45-73); Platelet Count 289 X10*3/uL (160-400); Red Cell Distribution Width 16.2 % (11.0-16.0); White Blood Count 5.4 X10*3/uL (4.8-10.8)
[2020-06-04 12:21] LABS: INTERNATIONAL NORM RATIO 1.1 (0.9-1.1); Prothrombin Time 12.9 SEC (10.8-13.0)
[2020-06-04 12:23] LABS: Partial Thromboplastin Time 35.3 SEC (24.1-38.0)
[2020-06-04] MEDS: Piperacillin Sodium/Tazobactam 3.375 GM in 0.9 % Sodium Chloride 50 ML IV (12:26)
[2020-06-04 12:40] LABS: Glucose Urine UA 250 MG/DL (NEG); Leukocyte Esterase Urine NEG (NEG); Nitrite Urine NEG (NEG); PH 5.5 (5.0-8.0); Urine Blood TRACE (NEG); Urine Ketones NEG (NEG); Urine Protein 2+ MG/DL (NEG-TRACE)
[2020-06-04 12:41] LABS: Appearance Urine HAZY; Color Urine YELLOW
--- NOTE | 2020-06-04 12:42 | P.HPGS_ITS ---
History of Present Illness History of Present Illness Date of Service: 06/04/20 Chief complaint: wound check, fever Narrative: Daron Kimble is a 74 year old male presenting with a known history of diabetic foot ulceration and a large heel ulcer on the left side extending to bone. Patient has been undergoing wound care therapy as an outpatient but is not improving. The patient is reporting increased pain in the foot. Pain is also extending up above the ankle. Patient is admitted to the surgical service for in anticipation of a possible below-knee amputation. Review of Systems Review of Systems: Yes Unobtainable due to mental condition [facility] Past Medical History Medical History Arthritis Asthma Candidiasis of penis Cholelithiasis Diabetes mellitus, type 2 Diverticulosis Gaytan catheter in place Hiatal hernia Hydronephrosis Hyperlipidemia Hypertension Sepsis Severe sepsis Wheelchair dependence Surgical History Surgical History H/O hernia repair Social History Social History Household Members: Other Housing: Apartment Alcohol intake: unknown Smoking Status: Never smoker Smoked in Last 30 Days: No Second Hand Smoke Exposure: No Use of substances other than those prescribed or required for medical reasons: No Advance Directives: No Advance Directives Information Provided: No service: No Current occupational status: disabled Meds Allergies Allergy/AdvReac Type Severity Reaction Status Date / Time No Known Allergies Allergy Verified 06/04/20 11:24 [No Known Allergies*] Active Medications: Current Medications Generic Name Dose Route Start Last Admin Trade Name Freq PRN Reason Stop Dose Admin Vancomycin HCl 750 mg/ Sodium 265 mls @ 265 mls/hr 06/04/20 11:51 Chloride IV 06/04/20 12:50 ONCE ONE Pharmacy Consult 1 each 06/04/20 11:51 Consult Rx Vancomycin Dosing MISCELLANE DAILY PRN Consult order Home Medications Medication Instructions Recorded Confirmed Last Taken Type Lantus Solostar U-100 Insulin 45 unit SUBCUT BEDTIME 01/01/20 06/04/20 05/01/20 History albuterol sulfate 2 puff PO Q4-6H PRN 01/01/20 06/04/20 Unknown History clopidogrel 75 mg PO DAILY 10/08/1506/04/20 05/01/20 History glimepiride 1 mg PO DAILY 01/01/20 06/04/20 05/01/20 History atorvastatin 80 mg tablet 80 mg PO DAILY 02/12/20 06/04/20 05/01/20 History aspirin 81 mg PO DAILY 05/02/20 06/04/20 05/01/20 History finasteride 5 mg PO DAILY 05/02/20 06/04/20 05/01/20 History melatonin 3 mg PO BEDTIME PRN 05/02/20 06/04/20 05/01/20 History multivitamin [Daily-Casa] 1 tab PO DAILY 05/02/20 06/04/20 05/01/20 History tamsulosin 0.4 mg PO BEDTIME 05/02/20 06/04/20 05/01/20 History amlodipine 1 tab PO DAILY 06/04/20 06/04/20 Unknown History gabapentin 1 cap PO DAILY 06/04/20 06/04/20 Unknown History lactulose 15 ml PO DAILY 06/04/20 06/04/20 Unknown History Physical Exam Vital Signs: Vital Signs: Last Vital Signs Temp 97.8 F 06/04/20 12:27 Pulse 97 06/04/20 12:27 Resp 19 06/04/20 12:27 BP 142/66 H 06/04/20 12:27 Pulse Ox 97 06/04/20 12:27 Body Mass Index 20.0 Const: General: cooperative, no acute distress, alert and awake Neck: Neck: Yes normal visual inspection, Yes full ROM and Yes no JVD Resp: Effort & Inspection: normal respiratory effort, no cough, no stridor and not tachypneic Auscultation: no wheezes Cardio: Jugular venous distension: no JVD Rate: regular rate Rhythm: regular rhythm GI: Inspection: Yes normal to inspection Skin: General skin exam: no rashes or lesions noted and dry skin Extrem: Other: Large open wound involving the healed extending to calcaneus as well as the plantar surface. There is also a secondary ulcer in the dorsal surface which is red and exquisitely tender to palpation. No fluctuance is noted to palpation. Skin of the aleman is normal without erythema or edema. 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 Patient is experiencing more discomfort associated with this foot. The ulcer is unlikely to heal given its location in the involvement of bone. I have discussed this with the Wound Care Center and they feel amputation would be the next best step. He will be admitted to the surgical service in preparation for amputation. I will discuss this with his healthcare proxy. Hospitalist consultation will be requested.
[2020-06-04] MEDS: vancomycin HCL 750 MG in 0.9 % Sodium Chloride 250 ML 265 MG IV (12:54)
[2020-06-04 12:59] LABS: Bacteria Urine 1+ /LPF; RBC Urine 0-2 /HPF (0); WBC Urine 0-2 /HPF (0-4)
[2020-06-04 13:15] LABS: Alanine Aminotransferase 28 U/L (0-40); Albumin Level 3.1 g/dL (3.5-5.0); Alkaline Phosphatase 105 U/L (39-117); Anion Gap 13 (12-20); Aspartate Amino Transferase 16 U/L (5-37); Bilirubin Total 0.2 mg/dL (0.0-1.0); Blood Urea Nitrogen 23 mg/dL (9-16); Calcium 8.5 mg/dL (8.4-10.2); Carbon Dioxide 29 mmol/L (22-29); Chloride 100 mmol/L (96-108); Estimated Glomerular Filt Rate > 60; Glucose Random 256 mg/dL (60-115); Potassium 4.1 mmol/L (3.3-5.1); Sodium 138 mmol/L (135-145); Total Protein 6.8 g/dL (6.5-8.0)
[2020-06-04 13:23] LABS: COVID-19 Test Negative (Negative); IDNOW Serial# 9DD0AD1C
[2020-06-04] MEDS: oxyCODONE HCl Immed Release 5 MG TABLET PO (16:47)
[2020-06-04] MEDS: levoFLOXacin/D5W 500 MG/100 ML PIGGYBACK 100 MG IV (16:47)
[2020-06-04] MEDS: Heparin Sodium,Porcine 5,000 UNIT/ML VIAL 5000 UNIT SUBCUT (16:48)
[2020-06-04] MEDS: 0.9 % Sodium Chloride Flush 3 ML SYRINGE IVFLUSH (16:51)
--- NOTE | 2020-06-04 17:07 | PC.NURSE ---
patient had large bowel movement. patient cleaned and linens changed. patient noticed to have pressure ulcer to coccyx as well.
[2020-06-04] MEDS: metroNIDAZOLE/NS 500 MG/100 ML PIGGYBACK 100 MG IV (18:39)
[2020-06-04] MEDS: Sodium Chloride 0.45 % 1,000 ML 80 ML IVCONT (18:39)
[2020-06-04 18:54] LABS: Glucose, Whole Blood 292 mg/dL (60-115)
[2020-06-04] MEDS: Insulin Glargine,Hum.rec.anlog 100 UNIT/ML 10 ML VIAL 45 UNIT SUBCUT (20:07)
[2020-06-04] MEDS: Tamsulosin HCL 0.4 MG CAPSULE PO (20:07)
[2020-06-05] VITALS (9 sets, daily range): BP systolic 101–118; BP diastolic 50–61; PULSE 80–98; RESP 18–20; TEMP 36–37.3; O2SAT 95–99
[2020-06-05] MEDS: metroNIDAZOLE/NS 500 MG/100 ML PIGGYBACK 100 MG IV ×3 (00:21→16:31)
[2020-06-05] MEDS: 0.9 % Sodium Chloride Flush 3 ML SYRINGE IVFLUSH ×2 (00:21→08:31)
[2020-06-05] MEDS: Heparin Sodium,Porcine 5,000 UNIT/ML VIAL 5000 UNIT SUBCUT ×2 (05:34→16:31)
[2020-06-05] MEDS: Sodium Chloride 0.45 % 1,000 ML 80 ML IVCONT ×2 (05:52→21:44)
[2020-06-05 06:38] LABS: MANUAL DIFF FLAG NO
[2020-06-05 06:48] LABS: Basophils Percent Auto 0.8 % (0-2); Eosinophils Absolute Auto 0.3 X10*3/uL (0.0-0.4); Eosinophils Percent Auto 6.4 % (0-4); Hematocrit 26.5 % (42-52); Hemoglobin 8.6 g/dl (14.0-18.0); Lymphocytes Absolute Auto 0.9 X10*3/uL (1.2-4.9); Mean Corpuscular HGB Conc 32.5 g/dl (31.0-36.0); Mean Corpuscular Hemoglobin 29.1 pg (27.0-33.0); Mean Corpuscular Volume 89.5 fL (80-98); Mean Platelet Volume 10.3 fL (9.4-12.4); Monocytes Absolute Auto 0.4 X10*3/uL (0.1-1.2); Monocytes Percent Auto 9.1 % (2-11); Neutrophils Absolute Auto 3.1 X10*3/uL (2.0-8.3); Neutrophils Percent Auto 65.7 % (45-73); Platelet Count 257 X10*3/uL (160-400); Red Blood Count 2.96 X10*6/uL (4.60-5.80); Red Cell Distribution Width 15.9 % (11.0-16.0); White Blood Count 4.7 X10*3/uL (4.8-10.8)
[2020-06-05 07:38] LABS: Anion Gap 12 (12-20); Blood Urea Nitrogen 21 mg/dL (9-16); Carbon Dioxide 28 mmol/L (22-29); Chloride 99 mmol/L (96-108); Creatinine Clr Calc Pharmacy 43.5; Estimated Glomerular Filt Rate > 60; Glucose Random 278 mg/dL (60-115); Potassium 4.9 mmol/L (3.3-5.1); Sodium 134 mmol/L (135-145)
[2020-06-05 07:49] LABS: Calcium 7.7 mg/dL (8.4-10.2)
[2020-06-05 08:06] LABS: Glucose, Whole Blood 266 mg/dL (60-115)
[2020-06-05] MEDS: Insulin Lispro 100 UNIT/ML 3 ML VIAL SUBCUT ×3 (08:19→21:41)
[2020-06-05] MEDS: Lactulose 20 GM/30 ML SOLUTION 10 GM PO (08:26)
[2020-06-05] MEDS: Finasteride 5 MG TABLET PO (08:33)
[2020-06-05] MEDS: Multivitamin TABLET 1 TAB PO (08:34)
[2020-06-05] MEDS: Gabapentin 100 MG CAPSULE PO (08:34)
[2020-06-05] MEDS: Atorvastatin Calcium 80 MG TABLET PO (08:34)
[2020-06-05] MEDS: amLODIPine Besylate 5 MG TABLET PO (08:34)
[2020-06-05] MEDS: Clopidogrel Bisulfate 75 MG TABLET PO (08:34)
[2020-06-05] MEDS: Aspirin Enteric Coated 81 MG TABLET.DR PO (08:34)
--- NOTE | 2020-06-05 08:50 | PM.PNGS ---
Subjective Subjective Date of Service: 06/05/20 <Adelina Maki PA-C - Last Filed: 06/05/20 08:57> 06/05/20 <Jeff Ruiz MD - Last Filed: 06/05/20 09:33> Patient reports: no new complaints <Adelina Maki PA-C - Last Filed: 06/05/20 08:57> Physical Exam Vital Signs: Vital Signs: Last Vital Signs Temp 99.2 F 06/05/20 08:00 Pulse 89 06/05/20 08:34 Resp 18 06/05/20 08:00 BP 111/61 06/05/20 08:34 Pulse Ox 95 06/05/20 08:00 Body Mass Index 20.0 <Adelina Maki PA-C - Last Filed: 06/05/20 08:57> Const: General: comfortable, no acute distress and alert <Adelina Maki PA-C - Last Filed: 06/05/20 08:57> Orientation/consciousness: patient oriented x3 <Adelina Maki PA-C - Last Filed: 06/05/20 08:57> Eyes: Sclerae: sclerae normal <Adelina Maki PA-C - Last Filed: 06/05/20 08:57> Resp: Effort & Inspection: normal respiratory effort <Adelina Maki PA-C - Last Filed: 06/05/20 08:57> Skin: General skin exam: no rashes or lesions noted <Adelina Maki PA-C - Last Filed: 06/05/20 08:57> Neuro: General: patient oriented x3 <Adelina Maki PA-C - Last Filed: 06/05/20 08:57> Extrem: Other: left heel- large open wound extending down to bone, surrounding eschar <NAOMIE Duarte Last Filed: 06/05/20 08:57> Progress Note: A&P Assessment and plan (1) PVD (peripheral vascular disease): Problem details: 05/08/2020 - left popliteal and peroneal plasty <NAOMIE Duarte Last Filed: 06/05/20 08:57> Status: Acute <Adelina Maki PA-C - Last Filed: 06/05/20 08:57> (2) 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 Yin tomorrow Seen and examined -agree with FLORENTIN Maki <Jeff Ruiz MD - Last Filed: 06/05/20 09:33> (3) Open wnd foot-complicated: Status: Acute <Adelina Maki PA-C - Last Filed: 06/05/20 08:57> Assessment and Plan: Nonhealing wound of left heel, down to bone. Dressing changed this morning. Left BKA planned for tomorrow. <Adelina Maki PA-C - Last Filed: 06/05/20 08:57> Fall Risk Details Current Medications: Current Medications Generic Name Dose Route Start Last Admin Trade Name Freq PRN Reason Stop Dose Admin Acetaminophen 650 mg 06/04/20 16:34 Acetaminophen 325 Mg Tablet PO Q6H PRN Pain, Mild (Pain Scale 1-3) Albuterol Sulfate 2 puff 06/04/20 16:34 Albuterol Sulfate 90 Mcg 8 Gm Inhaler INHALE Q4H PRN Shortness Of Breath Or Wheezing Amlodipine Besylate 5 mg 06/05/20 09:00 06/05/20 08:34 Amlodipine Besylate 5 Mg Tablet PO 5 mg DAILY RENETTA Administration Protocol Aspirin 81 mg 06/05/20 09:00 06/05/20 08:34 Aspirin Enteric Coated 81 Mg Tablet. PO 81 mg DAILY RENETTA Administration Atorvastatin Calcium 80 mg 06/05/20 09:00 06/05/20 08:34 Atorvastatin Calcium 80 Mg Tablet PO 80 mg DAILY RENETTA Administration Clopidogrel Bisulfate 75 mg 06/05/20 09:00 06/05/20 08:34 Clopidogrel Bisulfate 75 Mg Tablet PO 75 mg DAILY RENETTA Administration Finasteride 5 mg 06/05/20 09:00 06/05/20 08:33 Finasteride 5 Mg Tablet PO 5 mg DAILY RENETTA Administration Gabapentin 100 mg 06/05/20 09:00 06/05/20 08:34 Gabapentin 100 Mg Capsule PO 100 mg DAILY RENETTA Administration Heparin Sodium (Porcine) 5,000 unit 06/04/20 16:34 06/05/20 05:34 Heparin Sodium,Porcine 5,000 Unit/Ml Vial SUBCUT 5,000 unit Q12H RENETTA Administration Sodium Chloride 1,000 mls @ 80 mls/hr 06/04/20 16:34 06/05/20 05:52 IVCONT 80 mls/hr .[id number] RENETTA Administration Levofloxacin 500 mg in 100 mls @ 100 mls/hr 06/04/20 16:34 06/04/20 18:35 Levaquin IV Infused Q24H RENETTA Infusion Metronidazole 500 mg in 100 mls @ 100 mls/hr 06/04/20 16:34 06/05/20 08:24 Flagyl IV 100 mls/hr Q8H RENETTA Administration Insulin Glargine 45 unit 06/04/20 21:00 06/04/20 20:07 Insulin Glargine,Hum.Rec.Anlog 100 Unit/Ml 10 Ml Vial SUBCUT 45 unit BEDTIME RENETTA Administration Insulin Human Lispro 0 unit 06/05/20 11:30 06/05/20 08:19 Insulin Lispro 100 Unit/Ml 3 Ml Vial SUBCUT 6 unit QIDACHS COUNTS INCLUDE 234 BEDS AT THE [facility] Administration Protocol Lactulose 10 gm 06/05/20 09:00 06/05/20 08:26 Lactulose 20 Gm/30 Ml Solution PO 10 gm DAILY RENETTA Administration Morphine Sulfate 2 mg 06/04/20 16:34 Morphine Sulfate 4 Mg/Ml Cartridge IVPUSH Q2H PRN Pain, Severe (Pain Scale 7-10) Multivitamins/Vitamin C 1 tab 06/05/20 09:00 06/05/20 08:34 Multivitamin Tablet PO 1 tab DAILY RENETTA Administration Ondansetron HCl 4 mg 06/04/20 16:34 Ondansetron Hcl 4 Mg/2 Ml Vial IVPUSH Q8H PRN Nausea and Vomiting Oxycodone HCl 5 mg 06/04/20 16:34 06/04/20 16:47 Oxycodone Hcl Immed Release 5 Mg Tablet PO 5 mg Q6H PRN Administration Pain, Moderate (Pain Scale 4-6 Sodium Chloride 3 ml 06/04/20 16:34 06/05/20 08:31 0.9 % Sodium Chloride Flush 3 Ml Syringe IVFLUSH 3 ml QSHIFT RENETTA Administration Tamsulosin HCl 0.4 mg 06/04/20 21:00 06/04/20 20:07 Tamsulosin Hcl 0.4 Mg Capsule PO 0.4 mg BEDTIME RENETTA Administration Temazepam 15 mg 06/04/20 16:34 Temazepam 15 Mg Capsule PO BEDTIME PRN Insomnia <Adelina Maki PA-C - Last Filed: 06/05/20 08:57> Time Spent With Patient Time: Total time spent is greater than 50% in coordination of care (as documented) at patient's floor/unit and/or counseling patient: <Adelina Maki PA-C - Last Filed: 06/05/20 08:57> Time with patient: less than 15 minutes <Adelina Maki PA-C - Last Filed: 06/05/20 08:57>
[2020-06-05 11:10] LABS: Glucose, Whole Blood 112 mg/dL (60-115)
--- NOTE | 2020-06-05 12:08 | P.CONIM_ITS ---
History of Present Illness Data of Consult Service Date: 06/05/20 Primary Care Provider: Maxime Fernandez MD HPI Reason for consult: Medical management A 74 years old male with PMH of BPH, CVA, dysphagia, PVD, HTN, diabetes among others who presented to the hospital with worsening left lower extremity ulcer. 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 He reports increasing pain in the extremity associated with worsening of the ulcer that is getting deeper and larger in size. Admitted for below-knee amputation. Review of Systems Review of Systems: No fever, chills or weakness No chest pain, palpitation No shortness of breath or coughing No abdominal pain, nausea or vomiting No urinary symptoms Bilateral lower extremities wounds, left heel ulcers. [facility] Medical History (Updated 06/05/20 @ 12:14 by Francie Simpson MD) Arthritis Asthma Candidiasis of penis Cholelithiasis Diabetes mellitus, type 2 Diverticulosis Gaytan catheter in place Hiatal hernia Hydronephrosis Hyperlipidemia Hypertension Sepsis Severe sepsis Wheelchair dependence Surgical History H/O hernia repair Social History Household Members: Other Household Members Other:: sternman Housing: Apartment Do you presently have visiting nurse or other home services: No Alcohol intake: unknown Smoking Status: Never smoker Smoked in Last 30 Days: No Second Hand Smoke Exposure: No Use of substances other than those prescribed or required for medical reasons: No Currently Displaying Signs/Symptoms of Drug Intoxication Withdrawal: No Have you been hit, kicked, punched, or otherwise hurt by someone within the past year? If so, by whom?: No Do you feel safe in your current relationship?: No Current Relationship Is there a partner from a previous relationship who is making you feel unsafe now?: No Are you made to feel afraid or neglected: No Advance Directives: No Advance Directives Information Provided: No Do you have thoughts of harming others: None Do you have a plan to hurt others: No Plan Recently lost weight without trying: No service: No Current occupational status: disabled Meds Allergies Allergy/AdvReac Type Severity Reaction Status Date / Time No Known Allergies Allergy Verified 06/04/20 11:24 [No Known Allergies*] Active Medications: Current Medications Generic Name Dose Route Start Last Admin Trade Name Freq PRN Reason Stop Dose Admin Acetaminophen 650 mg 06/04/20 16:34 Acetaminophen 325 Mg Tablet PO Q6H PRN Pain, Mild (Pain Scale 1-3) Albuterol Sulfate 2 puff 06/04/20 16:34 Albuterol Sulfate 90 Mcg 8 Gm Inhaler INHALE Q4H PRN Shortness Of Breath Or Wheezing Amlodipine Besylate 5 mg 06/05/20 09:00 06/05/20 08:34 Amlodipine Besylate 5 Mg Tablet PO 5 mg DAILY RENETTA Administration Protocol Aspirin 81 mg 06/05/20 09:00 06/05/20 08:34 Aspirin Enteric Coated 81 Mg Tablet. PO 81 mg DAILY RENETTA Administration Atorvastatin Calcium 80 mg 06/05/20 09:00 06/05/20 08:34 Atorvastatin Calcium 80 Mg Tablet PO 80 mg DAILY RENETTA Administration Clopidogrel Bisulfate 75 mg 06/05/20 09:00 06/05/20 08:34 Clopidogrel Bisulfate 75 Mg Tablet PO 75 mg DAILY RENETTA Administration Finasteride 5 mg 06/05/20 09:00 06/05/20 08:33 Finasteride 5 Mg Tablet PO 5 mg DAILY RENETTA Administration Gabapentin 100 mg 06/05/20 09:00 06/05/20 08:34 Gabapentin 100 Mg Capsule PO 100 mg DAILY RENETTA Administration Heparin Sodium (Porcine) 5,000 unit 06/04/20 16:34 06/05/20 05:34 Heparin Sodium,Porcine 5,000 Unit/Ml Vial SUBCUT 5,000 unit Q12H RENETTA Administration Sodium Chloride 1,000 mls @ 80 mls/hr 06/04/20 16:34 06/05/20 05:52 IVCONT 80 mls/hr .[id number] RENETTA Administration Levofloxacin 500 mg in 100 mls @ 100 mls/hr 06/04/20 16:34 06/04/20 18:35 Levaquin IV Infused Q24H RENETTA Infusion Metronidazole 500 mg in 100 mls @ 100 mls/hr 06/04/20 16:34 06/05/20 10:18 Flagyl IV Infused Q8H RENETTA Infusion Cefazolin Sodium/Dextrose 2 gm in 50 mls @ 100 mls/hr 06/06/20 10:53 Ancef IV 06/06/20 11:22 PREOP ONE Insulin Glargine 45 unit 06/04/20 21:00 06/04/20 20:07 Insulin Glargine,Hum.Rec.Anlog 100 Unit/Ml 10 Ml Vial SUBCUT 45 unit BEDTIME RENETTA Administration Insulin Human Lispro 0 unit 06/05/20 11:30 06/05/20 08:19 Insulin Lispro 100 Unit/Ml 3 Ml Vial SUBCUT 6 unit QIDACHS RENETTA Administration Protocol Lactulose 10 gm 06/05/20 09:00 06/05/20 08:26 Lactulose 20 Gm/30 Ml Solution PO 10 gm DAILY RENETTA Administration Morphine Sulfate 2 mg 06/04/20 16:34 Morphine Sulfate 4 Mg/Ml Cartridge IVPUSH Q2H PRN Pain, Severe (Pain Scale 7-10) Multivitamins/Vitamin C 1 tab 06/05/20 09:00 06/05/20 08:34 Multivitamin Tablet PO 1 tab DAILY RENETTA Administration Ondansetron HCl 4 mg 06/04/20 16:34 Ondansetron Hcl 4 Mg/2 Ml Vial IVPUSH Q8H PRN Nausea and Vomiting Oxycodone HCl 5 mg 06/04/20 16:34 06/04/20 16:47 Oxycodone Hcl Immed Release 5 Mg Tablet PO 5 mg Q6H PRN Administration Pain, Moderate (Pain Scale 4-6 Sodium Chloride 3 ml 06/04/20 16:34 06/05/20 08:31 0.9 % Sodium Chloride Flush 3 Ml Syringe IVFLUSH 3 ml QSHIFT RENETTA Administration Tamsulosin HCl 0.4 mg 06/04/20 21:00 06/04/20 20:07 Tamsulosin Hcl 0.4 Mg Capsule PO 0.4 mg BEDTIME RENETTA Administration Temazepam 15 mg 06/04/20 16:34 Temazepam 15 Mg Capsule PO BEDTIME PRN Insomnia Home Medications Medication Instructions Recorded Confirmed Last Taken Type Lantus Solostar U-100 Insulin 45 unit SUBCUT BEDTIME 01/01/20 06/04/20 05/01/20 History albuterol sulfate 2 puff PO Q4-6H PRN 01/01/20 06/04/20 Unknown History clopidogrel 75 mg PO DAILY 01/01/20 06/04/20 05/01/20 History glimepiride 1 mg PO DAILY 01/01/20 06/04/20 05/01/20 History atorvastatin 80 mg tablet 80 mg PO DAILY 02/12/20 06/04/20 05/01/20 History aspirin 81 mg PO DAILY 05/02/20 06/04/20 05/01/20 History finasteride 5 mg PO DAILY 05/02/20 06/04/20 05/01/20 History melatonin 3 mg PO BEDTIME PRN 05/02/20 06/04/20 05/01/20 History multivitamin [Daily-Casa] 1 tab PO DAILY 05/02/20 06/04/20 05/01/20 History tamsulosin 0.4 mg PO BEDTIME 05/02/20 06/04/20 05/01/20 History amlodipine 1 tab PO DAILY 06/04/20 06/04/20 Unknown History gabapentin 1 cap PO DAILY 06/04/20 06/04/20 Unknown History lactulose 15 ml PO DAILY 06/04/20 06/04/20 Unknown History Physical Exam Vital Signs and Narrative: Vital Signs: Last Vital Signs Temp 98.1 F 06/05/20 11:46 Pulse 83 06/05/20 11:46 Resp 19 06/05/20 11:46 BP 104/51 L 06/05/20 11:46 Pulse Ox 98 06/05/20 11:46 Body Mass Index 20.0 Const: Other: Constitutional : Alert, oriented, not in distress Neck : Normal inspection, Supple Cardiovascular : RRR, S1 S2, no lower extremity edema Respiratory : Good bilateral air entry, no crackles, wheezes or rhonchi Gastrointestinal: soft, lax, Normal bowel sounds, Non tender Skin : Warm/Dry, right foot ulcer covered with dressing, left heel deep ulcer covered with dressing Neurological : Alert & oriented , No focal deficit Results Labs CBC and Chem 7: 06/05/20 06:04 06/05/20 06:04 Labs: Laboratory Results - last 24 hr 06/04/20 06/04/20 06/04/20 11:58 11:58 11:58 MCV 90.0 MCH 29.1 MCHC 32.4 RDW 16.2 H Plt Count 289 MPV 10.4 Immature Gran % (Auto) 0.4 Neut % (Auto) 71.5 Lymph % (Auto) 14.5 L [place] % (Auto) 8.2 Eos % (Auto) 4.5 H Baso % (Auto) 0.9 Lymph # (Auto) 0.8 L [place] # (Auto) 0.4 Eos # (Auto) 0.2 Baso # (Auto) 0.1 Abs Immat Gran (auto) 0.02 Absolute Neuts (auto) 3.9 Absolute Nucleated RBC 0.000 Nucleated RBC % (auto) 0.0 PT 12.9 INR 1.1 APTT 35.3 Anion Gap 13 Estim Creat Clear Calc 46.0 Estimated GFR > 60 POC Glucose Random Glucose 256 H Lactic Acid Calcium 8.5 D Total Bilirubin 0.2 AST 16 ALT 28 Alkaline Phosphatase 105 D Total Protein 6.8 Albumin 3.1 L D Urine Color Urine Appearance Urine pH Ur Specific [place] Urine Protein Urine Glucose (UA) Urine Ketones Urine Blood Urine Nitrite Ur Leukocyte Esterase Urine RBC Urine WBC Ur Squamous Epith Cells Urine Bacteria COVID-19 ([facility]) COVID-19 Clin Com 06/04/20 06/04/20 06/04/20 11:58 11:59 12:24 MCV MCH MCHC RDW Plt Count MPV Immature Gran % (Auto) Neut % (Auto) Lymph % (Auto) [place] % (Auto) Eos % (Auto) Baso % (Auto) Lymph # (Auto) [place] # (Auto) Eos # (Auto) Baso # (Auto) Abs Immat Gran (auto) Absolute Neuts (auto) Absolute Nucleated RBC Nucleated RBC % (auto) PT INR APTT Anion Gap Estim Creat Clear Calc Estimated GFR POC Glucose Random Glucose Lactic Acid 1.0 Calcium Total Bilirubin AST ALT Alkaline Phosphatase Total Protein Albumin Urine Color YELLOW Urine Appearance HAZY Urine pH 5.5 Ur Specific [place] 1.020 Urine Protein 2+ H Urine Glucose (UA) 250 H Urine Ketones NEG Urine Blood TRACE Urine Nitrite NEG Ur Leukocyte Esterase NEG Urine RBC 0-2 Urine WBC 0-2 Ur Squamous Epith Cells NONE Urine Bacteria 1+ COVID-19 ([facility]) Negative COVID-19 Clin Com See Note 06/04/20 06/05/20 06/05/20 18:51 06:04 06:04 MCV 89.5 MCH 29.1 MCHC 32.5 RDW 15.9 Plt Count 257 MPV 10.3 Immature Gran % (Auto) 0.0 Neut % (Auto) 65.7 Lymph % (Auto) 18.0 L [place] % (Auto) 9.1 Eos % (Auto) 6.4 H Baso % (Auto) 0.8 Lymph # (Auto) 0.9 L [place] # (Auto) 0.4 Eos # (Auto) 0.3 Baso # (Auto) 0.0 Abs Immat Gran (auto) 0.00 Absolute Neuts (auto) 3.1 Absolute Nucleated RBC 0.000 Nucleated RBC % (auto) 0.0 PT INR APTT Anion Gap 12 Estim Creat Clear Calc 43.5 Estimated GFR > 60 POC Glucose 292 H Random Glucose 278 H Lactic Acid Calcium 7.7 L D Total Bilirubin AST ALT Alkaline Phosphatase Total Protein Albumin Urine Color Urine Appearance Urine pH Ur Specific [place] Urine Protein Urine Glucose (UA) Urine Ketones Urine Blood Urine Nitrite Ur Leukocyte Esterase Urine RBC Urine WBC Ur Squamous Epith Cells Urine Bacteria COVID-19 ([facility]) COVID-19 [facility] 06/05/20 06/05/20 07:55 11:00 MCV MCH MCHC RDW Plt Count MPV Immature Gran % (Auto) Neut % (Auto) Lymph % (Auto) [place] % (Auto) Eos % (Auto) Baso % (Auto) Lymph # (Auto) [place] # (Auto) Eos # (Auto) Baso # (Auto) Abs Immat Gran (auto) Absolute Neuts (auto) Absolute Nucleated RBC Nucleated RBC % (auto) PT INR APTT Anion Gap Estim Creat Clear Calc Estimated GFR POC Glucose 266 H 112 Random Glucose Lactic Acid Calcium Total Bilirubin AST ALT Alkaline Phosphatase Total Protein Albumin Urine Color Urine Appearance Urine pH Ur Specific [place] Urine Protein Urine Glucose (UA) Urine Ketones Urine Blood Urine Nitrite Ur Leukocyte Esterase Urine RBC Urine WBC Ur Squamous Epith Cells Urine Bacteria COVID-19 ([facility]) COVID-19 [facility] Radiologist's Impressions: Impressions Chest X-Ray 06/04/20 11:42 IMPRESSION: Subtle groundglass opacities scattered mid zones suspicious for atypical or viral pneumonia. 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: Status: Acute (2) PVD (peripheral vascular disease): Status: Acute (3) Diabetes mellitus, type 2: Status: Inactive A 74 years old male with PMH of BPH, CVA, dysphagia, PVD, HTN, diabetes among others who presented to the hospital with worsening left lower Diabetic foot heel ulcer Peripheral vascular disease On IV antibiotic of levofloxacin Flagyl Plan for surgical intervention by surgery team Hx PVD On ASA and Plavix Diabetes type 2 Continue Lantus Add SSI Hold oral medications HTN Continue amlodipine BPH continue finasteride and tamsulosin DVT PPX
--- NOTE | 2020-06-05 14:00 | MHC.CM.PN ---
pt lives alone in apt. he has a client project coordinator, wilmar, listed in emr as contact lens edge buffer. pt is heavily dependent on the client project coordinator for all adl's. pt uses a wc for mobilizing. pt is in agreement to going to [facility] at [place] , he would like to stay in [place]. refs. for snfs have been made c regard to this. dc plan is to STR. cm to cont. to follow.
[2020-06-05] MEDS: levoFLOXacin/D5W 500 MG/100 ML PIGGYBACK 100 MG IV (15:38)
[2020-06-05 16:04] LABS: Glucose, Whole Blood 199 mg/dL (60-115)
[2020-06-05 19:50] LABS: Glucose, Whole Blood 161 mg/dL (60-115)
[2020-06-05] MEDS: Insulin Glargine,Hum.rec.anlog 100 UNIT/ML 10 ML VIAL 45 UNIT SUBCUT (21:40)
[2020-06-05] MEDS: Tamsulosin HCL 0.4 MG CAPSULE PO (21:40)
[2020-06-05] MEDS: Temazepam 15 MG CAPSULE PO (21:40)
[2020-06-06] VITALS (14 sets, daily range): BP systolic 85–148; BP diastolic 36–66; PULSE 77–90; RESP 16–20; TEMP 35.8–36.9; O2SAT 95–100
[2020-06-06] MEDS: metroNIDAZOLE/NS 500 MG/100 ML PIGGYBACK 100 MG IV ×3 (00:49→15:50)
[2020-06-06 04:45] LABS: Glucose, Whole Blood 183 mg/dL (60-115)
[2020-06-06 04:45] LABS: Glucose, Whole Blood 58 mg/dL (60-115)
--- NOTE | 2020-06-06 04:47 | PC.NURSE ---
pt diaphoretic checked blood sugar 58.pt npo for surgery 1 amp D50 given at 0425.rechecked blood sugar at 0440 183.
[2020-06-06 06:21] LABS: Hematocrit 29.9 % (42-52); Hemoglobin 9.4 g/dl (14.0-18.0); Mean Corpuscular HGB Conc 31.4 g/dl (31.0-36.0); Mean Corpuscular Hemoglobin 28.7 pg (27.0-33.0); Mean Corpuscular Volume 91.2 fL (80-98); Mean Platelet Volume 9.4 fL (9.4-12.4); Platelet Count 301 X10*3/uL (160-400); Red Blood Count 3.28 X10*6/uL (4.60-5.80); White Blood Count 4.6 X10*3/uL (4.8-10.8)
[2020-06-06 06:53] LABS: Anion Gap 10 (12-20); Blood Urea Nitrogen 18 mg/dL (9-16); Calcium 8.3 mg/dL (8.4-10.2); Carbon Dioxide 30 mmol/L (22-29); Chloride 104 mmol/L (96-108); Creatinine Clr Calc Pharmacy 51.4; Estimated Glomerular Filt Rate > 60; Glucose Random 135 mg/dL (60-115); Potassium 4.9 mmol/L (3.3-5.1); Sodium 139 mmol/L (135-145)
--- NOTE | 2020-06-06 07:33 | MHC.SHP ---
Pre-Procedural Eval Section A The patient is an INPATIENT: Yes Section B Chief Complaint: Left heel diabetic nonhealing ulcer Allergies: Allergies Allergy/AdvReac Type Severity Reaction Status Date / Time No Known Allergies Allergy Verified 06/04/20 11:24 [No Known Allergies*] Plan Diagnosis/Plan: Unchanged I have reviewed the history and physical and performed a pertinent physical examination on my patient. No changes have occurred unless specified.
[2020-06-06 08:04] LABS: Glucose, Whole Blood 109 mg/dL (60-115)
--- NOTE | 2020-06-06 08:28 | P.PNGS_ITS ---
Subjective Subjective Date of Service: 06/06/20 Interval history: Patient reports pain in the left foot and is concerned about his right foot ulcers. Physical Exam Vital Signs: Vital Signs: Last Vital Signs Temp 97.5 F 06/06/20 07:16 Pulse 90 06/06/20 07:16 Resp 17 06/06/20 07:16 BP 148/66 H 06/06/20 07:16 Pulse Ox 97 06/06/20 07:16 Body Mass Index 20.0 Const: General: cooperative, comfortable and no acute distress Resp: Effort & Inspection: normal respiratory effort, no stridor and not tachypneic Auscultation: no wheezes Cardio: Jugular venous distension: no JVD GI: Inspection: Yes normal to inspection Extrem: Other: Bilateral foot dressings clean and intact. Skin of the left aleman is clean and intact without erythema or edema. Progress Note: A&P Assessment and plan (1) Diabetic foot ulcer associated with diabetes mellitus due to underlying condition: Status: Acute Assessment and Plan: 74-year-old male patient with a known history of peripheral vascular disease and a difficult left heel ulcer which extends to the calcaneus. [facility] maximal efforts [facility] this has not healed. I reviewed the findings with the patient via a hospital food technologist. I recommended a below-knee amputation to the left leg and after discussion of the procedure, risks, and alternatives, consents to the procedure. He is scheduled for later on this afternoon. He is also requested debridement of the right foot which will be performed at the same time. (2) PVD (peripheral vascular disease): Status: Acute Fall Risk Details Current Medications: Current Medications Generic Name Dose Route Start Last Admin Trade Name Marko PRN Reason Stop Dose Admin Acetaminophen 650 mg 06/04/20 16:34 Acetaminophen 325 Mg Tablet PO Q6H PRN Pain, Mild (Pain Scale 1-3) Albuterol Sulfate 2 puff 06/04/20 16:34 Albuterol Sulfate 90 Mcg 8 Gm Inhaler INHALE Q4H PRN Shortness Of Breath Or Wheezing Amlodipine Besylate 5 mg 06/05/20 09:00 06/05/20 08:34 Amlodipine Besylate 5 Mg Tablet PO 5 mg DAILY RENETTA Administration Protocol Aspirin 81 mg 06/05/20 09:00 06/05/20 08:34 Aspirin Enteric Coated 81 Mg Tablet. PO 81 mg DAILY RENETTA Administration Atorvastatin Calcium 80 mg 06/05/20 09:00 06/05/20 08:34 Atorvastatin Calcium 80 Mg Tablet PO 80 mg DAILY RENETTA Administration Clopidogrel Bisulfate 75 mg 06/05/20 09:00 06/05/20 08:34 Clopidogrel Bisulfate 75 Mg Tablet PO 75 mg DAILY RENETTA Administration Finasteride 5 mg 06/05/20 09:00 06/05/20 08:33 Finasteride 5 Mg Tablet PO 5 mg DAILY RENETTA Administration Gabapentin 100 mg 06/05/20 09:00 06/05/20 08:34 Gabapentin 100 Mg Capsule PO 100 mg DAILY RENETTA Administration Heparin Sodium (Porcine) 5,000 unit 06/04/20 16:34 06/06/20 05:38 Heparin Sodium,Porcine 5,000 Unit/Ml Vial SUBCUT Not Given Q12H [facility] Sodium Chloride 1,000 mls @ 80 mls/hr 06/04/20 16:34 06/05/20 21:44 IVCONT 80 mls/hr .[id number] RENETTA Administration Levofloxacin 500 mg in 100 mls @ 100 mls/hr 06/04/20 16:34 06/05/20 16:48 Levaquin IV Infused Q24H RENETTA Infusion Metronidazole 500 mg in 100 mls @ 100 mls/hr 06/04/20 16:34 06/06/20 02:00 Flagyl IV Infused Q8H [facility] Infusion Cefazolin Sodium/Dextrose 2 gm in 50 mls @ 100 mls/hr 06/06/20 10:53 Ancef IV 06/06/20 11:22 PREOP ONE Insulin Glargine 35 unit 06/06/20 21:00 Insulin Glargine,Hum.Rec.Anlog 100 Unit/Ml 10 Ml Vial SUBCUT BEDTIME [facility] Insulin Human Lispro 0 unit 06/05/20 11:30 06/05/20 21:41 Insulin Lispro 100 Unit/Ml 3 Ml Vial SUBCUT 2 unit QIDACHS [facility] Administration Protocol Lactulose 10 gm 06/05/20 09:00 06/05/20 08:26 Lactulose 20 Gm/30 Ml Solution PO 10 gm DAILY [facility] Administration Morphine Sulfate 2 mg 06/04/20 16:34 Morphine Sulfate 4 Mg/Ml Cartridge IVPUSH Q2H PRN Pain, Severe (Pain Scale 7-10) Multivitamins/Vitamin C 1 tab 06/05/20 09:00 06/05/20 08:34 Multivitamin Tablet PO 1 tab DAILY RENETTA Administration Ondansetron HCl 4 mg 06/04/20 16:34 Ondansetron Hcl 4 Mg/2 Ml Vial IVPUSH Q8H PRN Nausea and Vomiting Oxycodone HCl 5 mg 06/04/20 16:34 06/04/20 16:47 Oxycodone Hcl Immed Release 5 Mg Tablet PO 5 mg Q6H PRN Administration Pain, Moderate (Pain Scale 4-6 Sodium Chloride 3 ml 06/04/20 16:34 06/05/20 21:41 0.9 % Sodium Chloride Flush 3 Ml Syringe IVFLUSH Not Given QSHIFT RENETTA Tamsulosin HCl 0.4 mg 06/04/20 21:00 06/05/20 21:40 Tamsulosin Hcl 0.4 Mg Capsule PO 0.4 mg BEDTIME RENETTA Administration Temazepam 15 mg 06/04/20 16:34 06/05/20 21:40 Temazepam 15 Mg Capsule PO 15 mg BEDTIME PRN Administration Insomnia Time Spent With Patient Time: Total time spent is greater than 50% in coordination of care (as documented) at patient's floor/unit and/or counseling patient: Time with patient: 25 - 35 minutes
[2020-06-06] MEDS: amLODIPine Besylate 5 MG TABLET PO (09:18)
[2020-06-06] MEDS: Gabapentin 100 MG CAPSULE PO (09:18)
[2020-06-06 10:58] LABS: Glucose, Whole Blood 71 mg/dL (60-115)
--- NOTE | 2020-06-06 13:12 | HO.PM.IMPN ---
Subjective Subjective Date of Service: 06/06/20 Interval History: The patient was seen and evaluated this morning Laying in bed, feels comfortable Denies any fever, chills or shortness of breath No reported other overnight events. Systemic review: No fever, chills or weakness No chest pain, palpitation No shortness of breath or coughing No abdominal pain, nausea or vomiting No urinary symptoms No any rash or wounds Physical Exam Vital Signs: Vital Signs: Last Vital Signs Temp 97.4 F 06/06/20 10:50 Pulse 88 06/06/20 10:50 Resp 18 06/06/20 10:50 BP 114/60 06/06/20 10:50 Pulse Ox 99 06/06/20 10:50 Body Mass Index 20.0 Const: Other: Constitutional : Alert, oriented, not in distress Neck : Normal inspection, Supple Cardiovascular : RRR, S1 S2, no lower extremity edema Respiratory : Good bilateral air entry, no crackles, wheezes or rhonchi Gastrointestinal: soft, lax, Normal bowel sounds, Non tender Skin : Warm/Dry, right foot ulcer covered with dressing, left heel deep ulcer covered with dressing Neurological : Alert & oriented , No focal deficit Objective Data Current Medications Generic Name Dose Route Start Last Admin Trade Name Freq PRN Reason Stop Dose Admin Acetaminophen 650 mg 06/04/20 16:34 Acetaminophen 325 Mg Tablet PO Q6H PRN Pain, Mild (Pain Scale 1-3) Albuterol Sulfate 2 puff 06/04/20 16:34 Albuterol Sulfate 90 Mcg 8 Gm Inhaler INHALE Q4H PRN Shortness Of Breath Or Wheezing Amlodipine Besylate 5 mg 06/05/20 09:00 06/06/20 09:18 Amlodipine Besylate 5 Mg Tablet PO 5 mg DAILY [facility] Administration Protocol Aspirin 81 mg 06/05/20 09:00 06/06/20 09:10 Aspirin Enteric Coated 81 Mg Tablet. PO Not Given DAILY [facility] Atorvastatin Calcium 80 mg 06/05/20 09:00 06/06/20 09:10 Atorvastatin Calcium 80 Mg Tablet PO Not Given DAILY [facility] Clopidogrel Bisulfate 75 mg 06/05/20 09:00 06/06/20 09:10 Clopidogrel Bisulfate 75 Mg Tablet PO Not Given DAILY [facility] Finasteride 5 mg 06/05/20 09:00 06/06/20 09:10 Finasteride 5 Mg Tablet PO Not Given DAILY [facility] Gabapentin 100 mg 06/05/20 09:00 06/06/20 09:18 Gabapentin 100 Mg Capsule PO 100 mg DAILY [facility] Administration Heparin Sodium (Porcine) 5,000 unit 06/04/20 16:34 06/06/20 05:38 Heparin Sodium,Porcine 5,000 Unit/Ml Vial SUBCUT Not Given Q12H [facility] Sodium Chloride 1,000 mls @ 80 mls/hr 06/04/20 16:34 06/06/20 10:44 IVCONT Infused .[id number] [facility] Infusion Levofloxacin 500 mg in 100 mls @ 100 mls/hr 06/04/20 16:34 06/05/20 16:48 Levaquin IV Infused Q24H [facility] Infusion Metronidazole 500 mg in 100 mls @ 100 mls/hr 06/04/20 16:34 06/06/20 10:44 Flagyl IV Infused Q8H [facility] Infusion Insulin Glargine 35 unit 06/06/20 21:00 Insulin Glargine,Hum.Rec.Anlog 100 Unit/Ml 10 Ml Vial SUBCUT BEDTIME [facility] Insulin Human Lispro 0 unit 06/05/20 11:30 06/06/20 08:29 Insulin Lispro 100 Unit/Ml 3 Ml Vial SUBCUT Not Given QIDACHS [facility] Protocol Lactulose 10 gm 06/05/20 09:00 06/06/20 09:10 Lactulose 20 Gm/30 Ml Solution PO Not Given DAILY [facility] Morphine Sulfate 2 mg 06/04/20 16:34 Morphine Sulfate 4 Mg/Ml Cartridge IVPUSH Q2H PRN Pain, Severe (Pain Scale 7-10) Multivitamins/Vitamin C 1 tab 06/05/20 09:00 06/06/20 09:11 Multivitamin Tablet PO Not Given DAILY [facility] Ondansetron HCl 4 mg 06/04/20 16:34 Ondansetron Hcl 4 Mg/2 Ml Vial IVPUSH Q8H PRN Nausea and Vomiting Oxycodone HCl 5 mg 06/04/20 16:34 06/04/20 16:47 Oxycodone Hcl Immed Release 5 Mg Tablet PO 5 mg Q6H PRN Administration Pain, Moderate (Pain Scale 4-6 Sodium Chloride 3 ml 06/04/20 16:34 06/06/20 08:29 0.9 % Sodium Chloride Flush 3 Ml Syringe IVFLUSH Not Given QSHIFT [facility] Tamsulosin HCl 0.4 mg 06/04/20 21:00 06/05/20 21:40 Tamsulosin Hcl 0.4 Mg Capsule PO 0.4 mg BEDTIME [facility] Administration Temazepam 15 mg 06/04/20 16:34 06/05/20 21:40 Temazepam 15 Mg Capsule PO 15 mg BEDTIME PRN Administration Insomnia Labs CBC & Chem 7: 06/06/20 05:59 06/06/20 05:59 Microbiology Microbiology Results: Microbiology 06/04/20 12:24 Blood - Venous Blood Culture - Preliminary No growth after 24 hours. 06/04/20 11:57 Blood - Venous Blood Culture - Preliminary No growth after 24 hours. 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: Status: Acute (2) PVD (peripheral vascular disease): Status: Acute (3) Diabetes mellitus, type 2: Status: Inactive Assessment and Plan: A 74 years old male with PMH of BPH, CVA, dysphagia, PVD, HTN, diabetes among others who presented to the hospital with worsening left lower Diabetic foot heel ulcer Peripheral vascular disease On IV antibiotic of levofloxacin Flagyl Plan for surgical intervention by surgery team Hx PVD On ASA and Plavix Hypoglycemia Diabetes type 2 Decrease Lantus to 35 units Add SSI Hold oral medications HTN Continue amlodipine BPH continue finasteride and tamsulosin DVT PPX Heparin
--- NOTE | 2020-06-06 13:47 | PM.OP ---
Brief Operative Note Date of Service: 06/06/20 <NAOMIE Duarte Last Filed: 06/06/20 13:49> Pre-op diagnosis: Diabetic foot ulcer, left foot <NAOMIE Duarte Last Filed: 06/06/20 13:49> Post-op diagnosis: same <Adelina Maki PA-C - Last Filed: 06/06/20 13:49> Procedure: Left below knee amputation and debridement of right foot ulcers <Adelina Maki PA-C - Last Filed: 06/06/20 13:49> Surgeon: TINA QUEEN MD <Adelina Maki PA-C - Last Filed: 06/06/20 13:49> Anesthesia: GLMA <Adelina Maki PA-C - Last Filed: 06/06/20 13:49> Ornamental Metal Erector Apprentice: Adelina Maki <NAOMIE Duarte Last Filed: 06/06/20 13:49> Estimated blood loss (mL): 250 <NAOMIE Duarte Last Filed: 06/06/20 13:49> Tourniquet time (min): 16 <NAOMIE Duarte Last Filed: 06/06/20 13:49> Pathology: other (left foot) <NAOMIE Duarte Last Filed: 06/06/20 13:49> Condition: stable <NAOMIE Duarte Last Filed: 06/06/20 13:49> Disposition: PACU <NAOMIE Duarte Last Filed: 06/06/20 13:49>
--- NOTE | 2020-06-06 13:51 | P.OP_ITS ---
Operative Note Operative Note Date of Service: 06/06/20 Narrative: Preoperative diagnosis: Nonhealing ulcer of left heel, ulcer of right foot Postoperative diagnosis: Same Procedure: Below-knee amputation left leg, debridement of right foot ulcers Surgeon: Uriel Yin MD Division Order Technician: Adelina Maki PA-C Anesthesia: General LMA Indications for procedure: 74-year-old male patient with diabetes and peripheral vascular disease presenting with a nonhealing ulcer of the heel treated with wound care therapy without significant improvement. He presents today for a left below-knee amputation. Right foot has multiple necrotic ulcers especially in the lateral foot pressure. These will be debrided as well Operative findings: Large necrotic ulcer of left heel, multiple small heel and forefoot ulcers related to pressure, peripheral vascular disease Specimen: Left foot Estimated blood loss: 250 mL Complications: None Procedure details: Patient was brought to the OR placed in a supine position. After administering general anesthesia patient's left and right lower extremities were prepped with Betadine and draped in sterile fashion. A surgical time-out was called and the consent confirmed. Patient received preoperative antibiotics. Starting on the left leg a fish mouth type incision was made with a 15 blade. This carried down through subcutaneous tissue. The lower flap was created longer than the upper flap. Electrocautery was then used to dissect down through muscle. Vascular and nerve structures were ligated with free ties of 3- 0 Polysorb or suture ligature of 2-0 silk. Dissection was continued down to the tibia and fibula.. The periosteum was dissected using electrocautery. A periosteal elevator was then used to dissect up more proximal approximately 3 cm. Fibula was also identified in dissected free. Bone saw was then used to divide the tibia and fibula proximal of the skin incision. Remaining muscular tissue was then divided using electrocautery and the specimen was passed off the table and sent to pathology for further examination. Wounds were then checked for hemostasis. Hemostasis was assured using electrocautery, free ties of Polysorb, and suture ligature. Wounds were then irrigated with saline solution and suctioned dry. Edge of tibia was then trimmed with a rasp. Muscular tissue was then reapproximated using interrupted 2 0 Polysorb sutures. Dermis was reapproximated using interrupted 3-0 Polysorb sutures. Two retention sutures were placed using 2 0 nylon suture. Skin was then reapproximated using skin fern. Attention was then directed to the right foot where several dry eschars were identified in the lateral foot. These were debrided down to viable tissue. Wounds were dressed with Xeroform fluff gauze and ABDs. The left leg was dressed with Xeroform, fluff gauze, Kerlix, and Jose bandage. Patient tolerated procedure well. Sponge, instrument, needle counts reported as correct. Patient was transferred to PACU in stable condition.
[2020-06-06 14:03] LABS: Glucose, Whole Blood 63 mg/dL (60-115)
[2020-06-06 14:35] LABS: Glucose, Whole Blood 130 mg/dL (60-115)
[2020-06-06] MEDS: 0.9 % Sodium Chloride Flush 3 ML SYRINGE IVFLUSH (15:50)
[2020-06-06 16:26] LABS: Glucose, Whole Blood 79 mg/dL (60-115)
[2020-06-06] MEDS: levoFLOXacin/D5W 500 MG/100 ML PIGGYBACK 100 MG IV (16:59)
[2020-06-06] MEDS: Heparin Sodium,Porcine 5,000 UNIT/ML VIAL 5000 UNIT SUBCUT (17:00)
[2020-06-06] MEDS: Sodium Chloride 0.45 % 1,000 ML 80 ML IVCONT (18:06)
[2020-06-06] MEDS: Morphine Sulfate 4 MG/ML CARTRIDGE 2 MG IVPUSH (19:52)
[2020-06-06 20:02] LABS: Glucose, Whole Blood 154 mg/dL (60-115)
[2020-06-06] MEDS: Insulin Glargine,Hum.rec.anlog 100 UNIT/ML 10 ML VIAL 35 UNIT SUBCUT (21:05)
[2020-06-06] MEDS: Tamsulosin HCL 0.4 MG CAPSULE PO (21:05)
[2020-06-06] MEDS: Insulin Lispro 100 UNIT/ML 3 ML VIAL SUBCUT (21:06)
[2020-06-07] MEDS: Morphine Sulfate 4 MG/ML CARTRIDGE 2 MG IVPUSH ×3 (00:09→21:56)
[2020-06-07] MEDS: metroNIDAZOLE/NS 500 MG/100 ML PIGGYBACK 100 MG IV ×3 (00:11→16:37)
[2020-06-07] MEDS: Heparin Sodium,Porcine 5,000 UNIT/ML VIAL 5000 UNIT SUBCUT ×2 (04:21→16:37)
[2020-06-07 07:28] VITALS: BP 119/89; PULSE 109; RESP 17; TEMP 36.4; O2SAT 96
[2020-06-07] MEDS: Finasteride 5 MG TABLET PO (07:40)
[2020-06-07] MEDS: Lactulose 20 GM/30 ML SOLUTION 10 GM PO (07:40)
[2020-06-07] MEDS: 0.9 % Sodium Chloride Flush 3 ML SYRINGE IVFLUSH (07:40)
[2020-06-07] MEDS: Gabapentin 100 MG CAPSULE PO (07:41)
[2020-06-07] MEDS: Clopidogrel Bisulfate 75 MG TABLET PO (07:41)
[2020-06-07] MEDS: Atorvastatin Calcium 80 MG TABLET PO (07:41)
[2020-06-07 07:42] VITALS: BP 119/89; PULSE 109
[2020-06-07] MEDS: amLODIPine Besylate 5 MG TABLET PO (07:42)
[2020-06-07] MEDS: Aspirin Enteric Coated 81 MG TABLET.DR PO (07:42)
[2020-06-07] MEDS: Multivitamin TABLET 1 TAB PO (07:42)
--- NOTE | 2020-06-07 07:58 | P.PNGS_ITS ---
Subjective Subjective Date of Service: 06/07/20 <Adelina Maki PA-C - Last Filed: 06/07/20 08:05> 06/07/20 <Uriel Yin MD - Last Filed: 06/07/20 08:11> Interval history: Having difficulty straightening leg. Having throbbing pain at amputation site. DId not sleep well. <Adelina Maki PA-C - Last Filed: 06/07/20 08:05> Physical Exam Vital Signs: Vital Signs: Last Vital Signs Temp 97.5 F 06/07/20 07:28 Pulse 109 H 06/07/20 07:42 Resp 17 06/07/20 07:28 BP 119/89 06/07/20 07:42 Pulse Ox 96 06/07/20 07:28 Body Mass Index 20.0 <Adelina Maki PA-C - Last Filed: 06/07/20 08:05> Const: General: comfortable, no acute distress and alert <Adelina Maki PA-C - Last Filed: 06/07/20 08:05> Orientation/consciousness: patient oriented x3 <Adelina Maki PA-C - Last Filed: 06/07/20 08:05> Eyes: Sclerae: sclerae normal <Adelina Maki PA-C - Last Filed: 06/07/20 08:05> Resp: Effort & Inspection: normal respiratory effort <Adelina Maki PA-C - Last Filed: 06/07/20 08:05> Skin: Other: normal color warm and dry <Adelina Maki PA-C - Last Filed: 06/07/20 08:05> Neuro: General: patient oriented x3 <NAOMIE Duarte Last Filed: 06/07/20 08:05> Extrem: Other: left BKA site- sutures/fern intact, no erythema and very little edema present right foot- ulcers with some eschar still present, no drainage, no erythema <NAOMIE Duarte Last Filed: 06/07/20 08:05> Progress Note: A&P Assessment and plan (1) Diabetic foot ulcer associated with diabetes mellitus due to underlying condition: Status: Acute <Adelina Maki PA-C - Last Filed: 06/07/20 08:05> (2) 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 COnt daily wound care. <Adelina Maki PA-C - Last Filed: 06/07/20 08:05> (3) Status post below-knee amputation of left lower extremity: Status: Acute <Adelina Maki PA-C - Last Filed: 06/07/20 08:05> Assessment and Plan: Doing fairly well post op. VS- slightly tachy. Amputation site clean. Having difficulty straightening knee- will consult PT, apply knee immobilizer. Cont pain control. Will repeat CBC today, trend H/H. <Adelina Maki PA-C - Last Filed: 06/07/20 08:05> Dressings changed today and wounds are clean and intact. No evidence of skin necrosis. Agree with the above assessment and plan. Will need physical therapy. Long-term plans include short-term rehab. <Uriel Yin MD - Last Filed: 06/07/20 08:11> Fall Risk Details Current Medications: Current Medications Generic Name Dose Route Start Last Admin Trade Name Freq PRN Reason Stop Dose Admin Acetaminophen 650 mg 06/04/20 16:34 Acetaminophen 325 Mg Tablet PO Q6H PRN Pain, Mild (Pain Scale 1-3) Albuterol Sulfate 2 puff 06/04/20 16:34 Albuterol Sulfate 90 Mcg 8 Gm Inhaler INHALE Q4H PRN Shortness Of Breath Or Wheezing Amlodipine Besylate 5 mg 06/05/20 09:00 06/07/20 07:42 Amlodipine Besylate 5 Mg Tablet PO 5 mg DAILY [facility] Administration Protocol Aspirin 81 mg 06/05/20 09:00 06/07/20 07:42 Aspirin Enteric Coated 81 Mg Tablet. PO 81 mg DAILY [facility] Administration Atorvastatin Calcium 80 mg 06/05/20 09:00 06/07/20 07:41 Atorvastatin Calcium 80 Mg Tablet PO 80 mg DAILY [facility] Administration Clopidogrel Bisulfate 75 mg 06/05/20 09:00 06/07/20 07:41 Clopidogrel Bisulfate 75 Mg Tablet PO 75 mg DAILY [facility] Administration Fentanyl 25 mcg 06/06/20 13:50 Fentanyl Citrate/Pf 100 Mcg/2 Ml Vial IVPUSH Q5M PRN Pain, Moderate (Pain Scale 4-6 Finasteride 5 mg 06/05/20 09:00 06/07/20 07:40 Finasteride 5 Mg Tablet PO 5 mg DAILY [facility] Administration Gabapentin 100 mg 06/05/20 09:00 06/07/20 07:41 Gabapentin 100 Mg Capsule PO 100 mg DAILY [facility] Administration Heparin Sodium (Porcine) 5,000 unit 06/04/20 16:34 06/07/20 04:21 Heparin Sodium,Porcine 5,000 Unit/Ml Vial SUBCUT 5,000 unit Q12H [facility] Administration Sodium Chloride 1,000 mls @ 80 mls/hr 06/04/20 16:34 06/07/20 06:31 IVCONT Not Given .[id number] [facility] Levofloxacin 500 mg in 100 mls @ 100 mls/hr 06/04/20 16:34 06/06/20 18:08 Levaquin IV Infused Q24H [facility] Infusion Metronidazole 500 mg in 100 mls @ 100 mls/hr 06/04/20 16:34 06/07/20 07:40 Flagyl IV 100 mls/hr Q8H [facility] Administration Promethazine HCl 12.5 mg/ 50.5 mls @ 202 mls/hr 06/06/20 13:50 Sodium Chloride IV ONCE PRN Nausea and Vomiting Insulin Glargine 35 unit 06/06/20 21:00 06/06/20 21:05 Insulin Glargine,Hum.Rec.Anlog 100 Unit/Ml 10 Ml Vial SUBCUT 35 unit BEDTIME [facility] Administration Insulin Human Lispro 0 unit 06/05/20 11:30 06/07/20 07:39 Insulin Lispro 100 Unit/Ml 3 Ml Vial SUBCUT Not Given QIDACHS [facility] Protocol Lactulose 10 gm 06/05/20 09:00 06/07/20 07:40 Lactulose 20 Gm/30 Ml Solution PO 10 gm DAILY [facility] Administration Morphine Sulfate 2 mg 06/04/20 16:34 06/07/20 00:09 Morphine Sulfate 4 Mg/Ml Cartridge IVPUSH 2 mg Q2H PRN Administration Pain, Severe (Pain Scale 7-10) Multivitamins/Vitamin C 1 tab 06/05/20 09:00 06/07/20 07:42 Multivitamin Tablet PO 1 tab DAILY [facility] Administration Ondansetron HCl 4 mg 06/04/20 16:34 Ondansetron Hcl 4 Mg/2 Ml Vial IVPUSH Q8H PRN Nausea and Vomiting Ondansetron HCl 4 mg 06/06/20 13:50 Ondansetron Hcl 4 Mg/2 Ml Vial IVPUSH ONCE PRN Nausea and Vomiting Oxycodone HCl 5 mg 06/04/20 16:34 06/04/20 16:47 Oxycodone Hcl Immed Release 5 Mg Tablet PO 5 mg Q6H PRN Administration Pain, Moderate (Pain Scale 4-6 Sodium Chloride 3 ml 06/04/20 16:34 06/07/20 07:40 0.9 % Sodium Chloride Flush 3 Ml Syringe IVFLUSH 3 ml QSHIFT [facility] Administration Tamsulosin HCl 0.4 mg 06/04/20 21:00 06/06/20 21:05 Tamsulosin Hcl 0.4 Mg Capsule PO 0.4 mg BEDTIME [facility] Administration Temazepam 15 mg 06/04/20 16:34 06/05/20 21:40 Temazepam 15 Mg Capsule PO 15 mg BEDTIME PRN Administration Insomnia <Adelina Maki PA-C - Last Filed: 06/07/20 08:05> Time Spent With Patient Time: Total time spent is greater than 50% in coordination of care (as documented) at patient's floor/unit and/or counseling patient: <Adelina Maki PA-C - Last Filed: 06/07/20 08:05> Time with patient: 15 - 24 minutes <Adelina Maki PA-C - Last Filed: 06/07/20 08:05> 25 - 35 minutes <Uriel Yin MD - Last Filed: 06/07/20 08:11>
[2020-06-07 08:23] LABS: Glucose, Whole Blood 95 mg/dL (60-115)
[2020-06-07 08:28] LABS: Basophils Percent Auto 0.3 % (0-2); Eosinophils Percent Auto 0.6 % (0-4); Hematocrit 24.1 % (42-52); Hemoglobin 7.7 g/dl (14.0-18.0); Imm Gran Abs Auto 0.03 X10*3/uL (0.00-0.03); Imm Gran Pct Auto 0.4 % (0.0-0.4); Lymphocytes Absolute Auto 0.5 X10*3/uL (1.2-4.9); Lymphocytes Percent Auto 6.6 % (20-40); MANUAL DIFF FLAG SCAN; Mean Corpuscular Hemoglobin 28.6 pg (27.0-33.0); Mean Corpuscular Volume 89.6 fL (80-98); Mean Platelet Volume 8.7 fL (9.4-12.4); Monocytes Absolute Auto 0.4 X10*3/uL (0.1-1.2); Monocytes Percent Auto 5.9 % (2-11); Neutrophils Absolute Auto 6.2 X10*3/uL (2.0-8.3); Neutrophils Percent Auto 86.2 % (45-73); Platelet Count 279 X10*3/uL (160-400); Red Blood Count 2.69 X10*6/uL (4.60-5.80); Red Cell Distribution Width 16.1 % (11.0-16.0); SCAN SMEAR FLAG 1; White Blood Count 7.1 X10*3/uL (4.8-10.8)
[2020-06-07] MEDS: ondansetron HCL 4 MG/2 ML VIAL IVPUSH (08:29)
[2020-06-07 09:01] VITALS: BP 119/89; PULSE 109
[2020-06-07] MEDS: Sodium Chloride 0.45 % 1,000 ML 80 ML IVCONT (09:02)
[2020-06-07 09:03] LABS: SLIDE REVIEW VERIFIED
[2020-06-07 11:27] LABS: Glucose, Whole Blood 95 mg/dL (60-115)
[2020-06-07 11:29] VITALS: BP 118/47; PULSE 107; RESP 24; TEMP 37; O2SAT 96
--- NOTE | 2020-06-07 13:03 | P.PNIM_ITS ---
Subjective Subjective Date of Service: 06/07/20 Interval History: The patient was seen and evaluated this morning Laying in bed, looks comfortable and not in distress, sleepy pain medications Blood level dropped overnight 9.4-7.7 Denies any fever, chills or shortness of breath No reported other overnight events. Systemic review: No fever, chills or weakness No chest pain, palpitation No shortness of breath or coughing No abdominal pain, nausea or vomiting No urinary symptoms No any rash or wounds Physical Exam Vital Signs: Vital Signs: Last Vital Signs Temp 98.6 F 06/07/20 11:29 Pulse 107 H 06/07/20 11:29 Resp 24 H 06/07/20 11:29 BP 118/47 L 06/07/20 11:29 Pulse Ox 96 06/07/20 11:29 Body Mass Index 20.0 Const: Other: Constitutional : Alert, oriented, not in distress Neck : Normal inspection, Supple Cardiovascular : RRR, S1 S2, no lower extremity edema Respiratory : Good bilateral air entry, no crackles, wheezes or rhonchi Gastrointestinal: soft, lax, Normal bowel sounds, Non tender Skin : Warm/Dry, right below-knee amputation, covered with dressing drainage noted. Neurological : Alert & oriented , No focal deficit Objective Data Current Medications Generic Name Dose Route Start Last Admin Trade Name Freq PRN Reason Stop Dose Admin Acetaminophen 650 mg 06/04/20 16:34 Acetaminophen 325 Mg Tablet PO Q6H PRN Pain, Mild (Pain Scale 1-3) Albuterol Sulfate 2 puff 06/04/20 16:34 Albuterol Sulfate 90 Mcg 8 Gm Inhaler INHALE Q4H PRN Shortness Of Breath Or Wheezing Amlodipine Besylate 5 mg 06/05/20 09:00 06/07/20 07:42 Amlodipine Besylate 5 Mg Tablet PO 5 mg DAILY [facility] Administration Protocol Aspirin 81 mg 06/05/20 09:00 06/07/20 07:42 Aspirin Enteric Coated 81 Mg Tablet. PO 81 mg DAILY [facility] Administration Atorvastatin Calcium 80 mg 06/05/20 09:00 06/07/20 07:41 Atorvastatin Calcium 80 Mg Tablet PO 80 mg DAILY [facility] Administration Clopidogrel Bisulfate 75 mg 06/05/20 09:00 06/07/20 07:41 Clopidogrel Bisulfate 75 Mg Tablet PO 75 mg DAILY [facility] Administration Fentanyl 25 mcg 06/06/20 13:50 Fentanyl Citrate/Pf 100 Mcg/2 Ml Vial IVPUSH Q5M PRN Pain, Moderate (Pain Scale 4-6 Finasteride 5 mg 06/05/20 09:00 06/07/20 07:40 Finasteride 5 Mg Tablet PO 5 mg DAILY [facility] Administration Gabapentin 100 mg 06/05/20 09:00 06/07/20 07:41 Gabapentin 100 Mg Capsule PO 100 mg DAILY [facility] Administration Heparin Sodium (Porcine) 5,000 unit 06/04/20 16:34 06/07/20 04:21 Heparin Sodium,Porcine 5,000 Unit/Ml Vial SUBCUT 5,000 unit Q12H [facility] Administration Sodium Chloride 1,000 mls @ 80 mls/hr 06/04/20 16:34 06/07/20 09:02 IVCONT 80 mls/hr .[id number] [facility] Administration Levofloxacin 500 mg in 100 mls @ 100 mls/hr 06/04/20 16:34 06/06/20 18:08 Levaquin IV Infused Q24H [facility] Infusion Metronidazole 500 mg in 100 mls @ 100 mls/hr 06/04/20 16:34 06/07/20 09:04 Flagyl IV Infused Q8H [facility] Infusion Promethazine HCl 12.5 mg/ 50.5 mls @ 202 mls/hr 06/06/20 13:50 Sodium Chloride IV ONCE PRN Nausea and Vomiting Insulin Glargine 25 unit 06/07/20 21:00 Insulin Glargine,Hum.Rec.Anlog 100 Unit/Ml 10 Ml Vial SUBCUT BEDTIME [facility] Insulin Human Lispro 0 unit 06/05/20 11:30 06/07/20 11:30 Insulin Lispro 100 Unit/Ml 3 Ml Vial SUBCUT Not Given QIDACHS [facility] Protocol Lactulose 10 gm 06/05/20 09:00 06/07/20 07:40 Lactulose 20 Gm/30 Ml Solution PO 10 gm DAILY [facility] Administration Morphine Sulfate 2 mg 06/04/20 16:34 06/07/20 00:09 Morphine Sulfate 4 Mg/Ml Cartridge IVPUSH 2 mg Q2H PRN Administration Pain, Severe (Pain Scale 7-10) Multivitamins/Vitamin C 1 tab 06/05/20 09:00 06/07/20 07:42 Multivitamin Tablet PO 1 tab DAILY [facility] Administration Ondansetron HCl 4 mg 06/04/20 16:34 06/07/20 08:29 Ondansetron Hcl 4 Mg/2 Ml Vial IVPUSH 4 mg Q8H PRN Administration Nausea and Vomiting Ondansetron HCl 4 mg 06/06/20 13:50 Ondansetron Hcl 4 Mg/2 Ml Vial IVPUSH ONCE PRN Nausea and Vomiting Oxycodone HCl 5 mg 06/04/20 16:34 06/04/20 16:47 Oxycodone Hcl Immed Release 5 Mg Tablet PO 5 mg Q6H PRN Administration Pain, Moderate (Pain Scale 4-6 Sodium Chloride 3 ml 06/04/20 16:34 06/07/20 07:40 0.9 % Sodium Chloride Flush 3 Ml Syringe IVFLUSH 3 ml QSHIFT [facility] Administration Tamsulosin HCl 0.4 mg 06/04/20 21:00 06/06/20 21:05 Tamsulosin Hcl 0.4 Mg Capsule PO 0.4 mg BEDTIME [facility] Administration Temazepam 15 mg 06/04/20 16:34 06/05/20 21:40 Temazepam 15 Mg Capsule PO 15 mg BEDTIME PRN Administration Insomnia Labs CBC & Chem 7: 06/07/20 08:12 06/06/20 05:59 Microbiology Microbiology Results: Microbiology 06/04/20 12:24 Blood - Venous Blood Culture - Preliminary No growth after 48 hours. 06/04/20 11:57 Blood - Venous Blood Culture - Preliminary No growth after 48 hours. Assessment and Plan (1) Diabetic foot ulcer associated with diabetes mellitus due to underlying c ondition: Status: Acute (2) PVD (peripheral vascular disease): Status: Acute (3) Diabetes mellitus, type 2: Status: Inactive Assessment and Plan: A 74 years old male with PMH of BPH, CVA, dysphagia, PVD, HTN, diabetes among others who presented to the hospital with worsening left lower Diabetic foot heel ulcer post BKA day 1 On IV antibiotic of levofloxacin Flagyl Plan for surgical intervention by surgery team Blood-loss anemia, acute Secondary to surgery and IV fluid HP dropped from 9.2-7.7 Hold on transfusion at this point and monitor Hypoglycemia Diabetes type 2 blood sugar below 100 with episode of hypoglycemia Decrease Lantus to 25 units Add SSI Hold oral medications HTN Continue amlodipine BPH continue finasteride and tamsulosin Peripheral vascular disease ASA, Plavix DVT PPX Heparin
--- NOTE | 2020-06-07 14:05 | HO.POSTANES ---
Post Anesthesia Evaluation Post Anesthesia Evaluation Vital Signs: Vital Signs Temp Pulse Resp BP Pulse Ox 06/07/20 11:29 98.6 F 107 H 24 H 118/47 L 96 06/07/20 09:01 109 H 119/89 06/07/20 07:42 109 H 119/89 06/07/20 07:28 97.5 F 109 H 17 119/89 96 Anesthesia: General Mental Status: Awake Pain Control: Satisfactory Nausea/Vomiting: None Hydration: Adequate Anesthesia-Related Issues: No Anes. Related Issues
--- NOTE | 2020-06-07 14:37 | MHC.CM.PN ---
nurse medicare sales representative note electronic medical record reviewed along with case discussed with staff nurse and on multiple disciplinary rounds met with patient , he is now pd #1 left below the knee amputation and debridement of the right of the right foot ulcer anticipate to be here 2 more days and then dischage to short term rehab . clinical updates sent via [facility] to [facility] , [facility] , [facility] and [facility] discharge plan short term rehab above facilities are continued to follow (
--- NOTE | 2020-06-07 15:20 | MHC.CLN ---
F/U PO INTAKE 75/100% DIET RX: 2000DM-APPROPRIATE WILL RESTART PROSOURCE AND SHEREE TO PROMOTE WOUND HEALING FOLLOWING
[2020-06-07 16:06] VITALS: BP 119/54; PULSE 106; RESP 16; TEMP 36.1; O2SAT 96
[2020-06-07 16:18] LABS: Glucose, Whole Blood 116 mg/dL (60-115)
[2020-06-07] MEDS: levoFLOXacin/D5W 500 MG/100 ML PIGGYBACK 100 MG IV (18:00)
[2020-06-07 18:40] VITALS: PULSE 100
[2020-06-07 20:26] LABS: Glucose, Whole Blood 140 mg/dL (60-115)
[2020-06-07] MEDS: Tamsulosin HCL 0.4 MG CAPSULE PO (21:44)
[2020-06-07] MEDS: Insulin Glargine,Hum.rec.anlog 100 UNIT/ML 10 ML VIAL 25 UNIT SUBCUT (21:45)
[2020-06-08] VITALS (7 sets, daily range): BP systolic 107–118; BP diastolic 42–58; PULSE 94–99; RESP 14–18; TEMP 36.3–37; O2SAT 94–95
[2020-06-08] MEDS: metroNIDAZOLE/NS 500 MG/100 ML PIGGYBACK 100 MG IV ×3 (02:02→18:14)
[2020-06-08] MEDS: Sodium Chloride 0.45 % 1,000 ML 80 ML IVCONT ×2 (03:52→16:46)
[2020-06-08] MEDS: Heparin Sodium,Porcine 5,000 UNIT/ML VIAL 5000 UNIT SUBCUT ×2 (05:53→16:42)
[2020-06-08 08:05] LABS: Glucose, Whole Blood 55 mg/dL (60-115)
[2020-06-08 08:05] LABS: Glucose, Whole Blood 36 mg/dL (60-115)
[2020-06-08 08:05] LABS: Glucose, Whole Blood 40 mg/dL (60-115)
[2020-06-08] MEDS: Morphine Sulfate 4 MG/ML CARTRIDGE 2 MG IVPUSH ×2 (08:14→15:24)
[2020-06-08] MEDS: Lactulose 20 GM/30 ML SOLUTION 10 GM PO (08:18)
[2020-06-08] MEDS: Aspirin Enteric Coated 81 MG TABLET.DR PO (08:19)
[2020-06-08] MEDS: Gabapentin 100 MG CAPSULE PO (08:19)
[2020-06-08] MEDS: Clopidogrel Bisulfate 75 MG TABLET PO (08:19)
[2020-06-08] MEDS: amLODIPine Besylate 5 MG TABLET PO (08:19)
[2020-06-08] MEDS: Finasteride 5 MG TABLET PO (08:19)
[2020-06-08] MEDS: Atorvastatin Calcium 80 MG TABLET PO (08:20)
[2020-06-08] MEDS: Multivitamin TABLET 1 TAB PO (08:20)
[2020-06-08 08:59] LABS: Glucose Random 50 mg/dL (60-115)
[2020-06-08 09:05] LABS: Glucose, Whole Blood 65 mg/dL (60-115)
--- NOTE | 2020-06-08 10:05 | PM.PNGS ---
Subjective Subjective Date of Service: 06/08/20 Interval history: says he has good pain control no events reported Physical Exam Vital Signs: Vital Signs: Last Vital Signs Temp 97.4 F 06/08/20 07:40 Pulse 97 06/08/20 08:19 Resp 18 06/08/20 08:14 BP 113/44 L 06/08/20 08:19 Pulse Ox 94 06/08/20 07:40 Body Mass Index 20.0 Laboratory Results - last 24 hr 06/07/20 06/07/20 06/07/20 11:23 15:59 20:09 POC Glucose 95 116 H 140 H Random Glucose 06/08/20 06/08/20 06/08/20 07:37 07:39 07:57 POC Glucose 36 L* 40 L* Random Glucose 50 L* 06/08/20 06/08/20 08:01 09:01 POC Glucose 55 L* 65 Random Glucose Const: General: comfortable and no acute distress Extrem: Other: BKA on left with dry dressings Progress Note: A&P Assessment and plan (1) Status post below-knee amputation of left lower extremity: Status: Acute Assessment and Plan: doing well postop dressings dry pain mgt plan to change dressings tomorrow Fall Risk Details Current Medications: Current Medications Generic Name Dose Route Start Last Admin Trade Name Lvq PRN Reason Stop Dose Admin Acetaminophen 650 mg 06/04/20 16:34 Acetaminophen 325 Mg Tablet PO Q6H PRN Pain, Mild (Pain Scale 1-3) Albuterol Sulfate 2 puff 06/04/20 16:34 Albuterol Sulfate 90 Mcg 8 Gm Inhaler INHALE Q4H PRN Shortness Of Breath Or Wheezing Amlodipine Besylate 5 mg 06/05/20 09:00 06/08/20 08:19 Amlodipine Besylate 5 Mg Tablet PO 5 mg DAILY [facility] Administration Protocol Aspirin 81 mg 06/05/20 09:00 06/08/20 08:19 Aspirin Enteric Coated 81 Mg Tablet. PO 81 mg DAILY [facility] Administration Atorvastatin Calcium 80 mg 06/05/20 09:00 06/08/20 08:20 Atorvastatin Calcium 80 Mg Tablet PO 80 mg DAILY [facility] Administration Clopidogrel Bisulfate 75 mg 06/05/20 09:00 06/08/20 08:19 Clopidogrel Bisulfate 75 Mg Tablet PO 75 mg DAILY [facility] Administration Fentanyl 25 mcg 06/06/20 13:50 Fentanyl Citrate/Pf 100 Mcg/2 Ml Vial IVPUSH Q5M PRN Pain, Moderate (Pain Scale 4-6 Finasteride 5 mg 06/05/20 09:00 06/08/20 08:19 Finasteride 5 Mg Tablet PO 5 mg DAILY [facility] Administration Gabapentin 100 mg 06/05/20 09:00 06/08/20 08:19 Gabapentin 100 Mg Capsule PO 100 mg DAILY [facility] Administration Heparin Sodium (Porcine) 5,000 unit 06/04/20 16:34 06/08/20 05:53 Heparin Sodium,Porcine 5,000 Unit/Ml Vial SUBCUT 5,000 unit Q12H [facility] Administration Sodium Chloride 1,000 mls @ 80 mls/hr 06/04/20 16:34 06/08/20 07:17 IVCONT Not Given .[id number] [facility] Levofloxacin 500 mg in 100 mls @ 100 mls/hr 06/04/20 16:34 06/07/20 20:11 Levaquin IV Infused Q24H [facility] Infusion Metronidazole 500 mg in 100 mls @ 100 mls/hr 06/04/20 16:34 06/08/20 09:31 Flagyl IV Infused Q8H [facility] Infusion Promethazine HCl 12.5 mg/ 50.5 mls @ 202 mls/hr 06/06/20 13:50 Sodium Chloride IV ONCE PRN Nausea and Vomiting Insulin Glargine 10 unit 06/08/20 21:00 Insulin Glargine,Hum.Rec.Anlog 100 Unit/Ml 10 Ml Vial SUBCUT BEDTIME [facility] Insulin Human Lispro 0 unit 06/05/20 11:30 06/08/20 07:45 Insulin Lispro 100 Unit/Ml 3 Ml Vial SUBCUT Not Given QIDACHS [facility] Protocol Lactulose 10 gm 06/05/20 09:00 06/08/20 08:18 Lactulose 20 Gm/30 Ml Solution PO 10 gm DAILY [facility] Administration Morphine Sulfate 2 mg 06/04/20 16:34 06/08/20 08:14 Morphine Sulfate 4 Mg/Ml Cartridge IVPUSH 2 mg Q2H PRN Administration Pain, Severe (Pain Scale 7-10) Multivitamins/Vitamin C 1 tab 06/05/20 09:00 06/08/20 08:20 Multivitamin Tablet PO 1 tab DAILY [facility] Administration Ondansetron HCl 4 mg 06/04/20 16:34 06/07/20 08:29 Ondansetron Hcl 4 Mg/2 Ml Vial IVPUSH 4 mg Q8H PRN Administration Nausea and Vomiting Ondansetron HCl 4 mg 06/06/20 13:50 Ondansetron Hcl 4 Mg/2 Ml Vial IVPUSH ONCE PRN Nausea and Vomiting Oxycodone HCl 5 mg 06/04/20 16:34 06/04/20 16:47 Oxycodone Hcl Immed Release 5 Mg Tablet PO 5 mg Q6H PRN Administration Pain, Moderate (Pain Scale 4-6 Sodium Chloride 3 ml 06/04/20 16:34 06/08/20 07:17 0.9 % Sodium Chloride Flush 3 Ml Syringe IVFLUSH Not Given QSHIFT [facility] Tamsulosin HCl 0.4 mg 06/04/20 21:00 06/07/20 21:44 Tamsulosin Hcl 0.4 Mg Capsule PO 0.4 mg BEDTIME [facility] Administration Temazepam 15 mg 06/04/20 16:34 06/05/20 21:40 Temazepam 15 Mg Capsule PO 15 mg BEDTIME PRN Administration Insomnia Time Spent With Patient Time: Total time spent is greater than 50% in coordination of care (as documented) at patient's floor/unit and/or counseling patient: Time with patient: less than 15 minutes
--- NOTE | 2020-06-08 10:41 | P.PNIM_ITS ---
Subjective Subjective Date of Service: 06/08/20 Interval History: The patient was seen and evaluated this morning Laying in bed, looks comfortable and not in distress, sleepy pain medications Denies any fever, chills or shortness of breath No reported other overnight events. Systemic review: No fever, chills or weakness No chest pain, palpitation No shortness of breath or coughing No abdominal pain, nausea or vomiting No urinary symptoms No any rash or wounds Physical Exam Vital Signs: Vital Signs: Last Vital Signs Temp 97.4 F 06/08/20 07:40 Pulse 97 06/08/20 08:19 Resp 18 06/08/20 08:14 BP 113/44 L 06/08/20 08:19 Pulse Ox 94 06/08/20 07:40 Body Mass Index 20.0 Const: Other: Constitutional : Alert, oriented, not in distress Neck : Normal inspection, Supple Cardiovascular : RRR, S1 S2, no lower extremity edema Respiratory : Good bilateral air entry, no crackles, wheezes or rhonchi Gastrointestinal: soft, lax, Normal bowel sounds, Non tender Skin : Warm/Dry, right below-knee amputation, covered with dressing drainage noted. Neurological : Alert & oriented , No focal deficit Objective Data Current Medications Generic Name Dose Route Start Last Admin Trade Name Freq PRN Reason Stop Dose Admin Acetaminophen 650 mg 06/04/20 16:34 Acetaminophen 325 Mg Tablet PO Q6H PRN Pain, Mild (Pain Scale 1-3) Albuterol Sulfate 2 puff 06/04/20 16:34 Albuterol Sulfate 90 Mcg 8 Gm Inhaler INHALE Q4H PRN Shortness Of Breath Or Wheezing Amlodipine Besylate 5 mg 06/05/20 09:00 06/08/20 08:19 Amlodipine Besylate 5 Mg Tablet PO 5 mg DAILY [facility] Administration Protocol Aspirin 81 mg 06/05/20 09:00 06/08/20 08:19 Aspirin Enteric Coated 81 Mg Tablet. PO 81 mg DAILY [facility] Administration Atorvastatin Calcium 80 mg 06/05/20 09:00 06/08/20 08:20 Atorvastatin Calcium 80 Mg Tablet PO 80 mg DAILY [facility] Administration Clopidogrel Bisulfate 75 mg 06/05/20 09:00 06/08/20 08:19 Clopidogrel Bisulfate 75 Mg Tablet PO 75 mg DAILY [facility] Administration Fentanyl 25 mcg 06/06/20 13:50 Fentanyl Citrate/Pf 100 Mcg/2 Ml Vial IVPUSH Q5M PRN Pain, Moderate (Pain Scale 4-6 Finasteride 5 mg 06/05/20 09:00 06/08/20 08:19 Finasteride 5 Mg Tablet PO 5 mg DAILY [facility] Administration Gabapentin 100 mg 06/05/20 09:00 06/08/20 08:19 Gabapentin 100 Mg Capsule PO 100 mg DAILY [facility] Administration Heparin Sodium (Porcine) 5,000 unit 06/04/20 16:34 06/08/20 05:53 Heparin Sodium,Porcine 5,000 Unit/Ml Vial SUBCUT 5,000 unit Q12H [facility] Administration Sodium Chloride 1,000 mls @ 80 mls/hr 06/04/20 16:34 06/08/20 07:17 IVCONT Not Given .[id number] [facility] Levofloxacin 500 mg in 100 mls @ 100 mls/hr 06/04/20 16:34 06/07/20 20:11 Levaquin IV Infused Q24H [facility] Infusion Metronidazole 500 mg in 100 mls @ 100 mls/hr 06/04/20 16:34 06/08/20 09:31 Flagyl IV Infused Q8H [facility] Infusion Promethazine HCl 12.5 mg/ 50.5 mls @ 202 mls/hr 06/06/20 13:50 Sodium Chloride IV ONCE PRN Nausea and Vomiting Insulin Glargine 10 unit 06/08/20 21:00 Insulin Glargine,Hum.Rec.Anlog 100 Unit/Ml 10 Ml Vial SUBCUT BEDTIME [facility] Insulin Human Lispro 0 unit 06/05/20 11:30 06/08/20 07:45 Insulin Lispro 100 Unit/Ml 3 Ml Vial SUBCUT Not Given QIDACHS [facility] Protocol Lactulose 10 gm 06/05/20 09:00 06/08/20 08:18 Lactulose 20 Gm/30 Ml Solution PO 10 gm DAILY [facility] Administration Morphine Sulfate 2 mg 06/04/20 16:34 06/08/20 08:14 Morphine Sulfate 4 Mg/Ml Cartridge IVPUSH 2 mg Q2H PRN Administration Pain, Severe (Pain Scale 7-10) Multivitamins/Vitamin C 1 tab 06/05/20 09:00 06/08/20 08:20 Multivitamin Tablet PO 1 tab DAILY [facility] Administration Ondansetron HCl 4 mg 06/04/20 16:34 06/07/20 08:29 Ondansetron Hcl 4 Mg/2 Ml Vial IVPUSH 4 mg Q8H PRN Administration Nausea and Vomiting Ondansetron HCl 4 mg 06/06/20 13:50 Ondansetron Hcl 4 Mg/2 Ml Vial IVPUSH ONCE PRN Nausea and Vomiting Oxycodone HCl 5 mg 06/04/20 16:34 06/04/20 16:47 Oxycodone Hcl Immed Release 5 Mg Tablet PO 5 mg Q6H PRN Administration Pain, Moderate (Pain Scale 4-6 Sodium Chloride 3 ml 06/04/20 16:34 06/08/20 07:17 0.9 % Sodium Chloride Flush 3 Ml Syringe IVFLUSH Not Given QSHIFT [facility] Tamsulosin HCl 0.4 mg 06/04/20 21:00 06/07/20 21:44 Tamsulosin Hcl 0.4 Mg Capsule PO 0.4 mg BEDTIME [facility] Administration Temazepam 15 mg 06/04/20 16:34 06/05/20 21:40 Temazepam 15 Mg Capsule PO 15 mg BEDTIME PRN Administration Insomnia Labs CBC & Chem 7: 06/07/20 08:12 06/08/20 07:57 Microbiology Microbiology Results: Microbiology 06/04/20 12:24 Blood - Venous Blood Culture - Preliminary No growth after 48 hours. 06/04/20 11:57 Blood - Venous Blood Culture - Preliminary No growth after 48 hours. 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: Status: Acute (2) PVD (peripheral vascular disease): Status: Acute (3) Diabetes mellitus, type 2: Status: Inactive Assessment and Plan: A 74 years old male with PMH of BPH, CVA, dysphagia, PVD, HTN, diabetes among others who presented to the hospital with worsening left lower Diabetic foot heel ulcer post BKA day 2 On IV antibiotic of levofloxacin Flagyl per surgical team Long-term antibiotics a source of infection removed Blood-loss anemia, acute Secondary to surgery and IV fluid HP dropped from 7.7 Hold on transfusion at this point and repeat CBC Hypoglycemia Diabetes type 2 blood sugar below 60 overnight Decrease Lantus to 10 units Add SSI Hold oral medications HTN Continue amlodipine BPH continue finasteride and tamsulosin Peripheral vascular disease ASA, Plavix DVT PPX Heparin
[2020-06-08 11:23] LABS: Glucose, Whole Blood 164 mg/dL (60-115)
[2020-06-08] MEDS: Insulin Lispro 100 UNIT/ML 3 ML VIAL SUBCUT ×2 (11:46→16:41)
[2020-06-08 16:14] LABS: Glucose, Whole Blood 158 mg/dL (60-115)
[2020-06-08] MEDS: levoFLOXacin/D5W 500 MG/100 ML PIGGYBACK 100 MG IV (16:42)
[2020-06-08 20:34] LABS: Glucose, Whole Blood 100 mg/dL (60-115)
[2020-06-08] MEDS: Tamsulosin HCL 0.4 MG CAPSULE PO (20:50)
[2020-06-09] VITALS (12 sets, daily range): BP systolic 107–136; BP diastolic 41–71; PULSE 89–105; RESP 12–19; TEMP 36.5–37.1; O2SAT 94–96
[2020-06-09] MEDS: metroNIDAZOLE/NS 500 MG/100 ML PIGGYBACK 100 MG IV ×3 (01:02→16:54)
[2020-06-09] MEDS: Heparin Sodium,Porcine 5,000 UNIT/ML VIAL 5000 UNIT SUBCUT (04:30)
[2020-06-09 06:44] LABS: Mean Corpuscular HGB Conc 32.4 g/dl (31.0-36.0); Mean Corpuscular Hemoglobin 29.1 pg (27.0-33.0); Mean Platelet Volume 9.1 fL (9.4-12.4); Platelet Count 242 X10*3/uL (160-400); Red Cell Distribution Width 16.7 % (11.0-16.0); White Blood Count 5.6 X10*3/uL (4.8-10.8)
[2020-06-09 07:16] LABS: Hematocrit 20.7 % (42-52); Hemoglobin 6.7 g/dl (14.0-18.0)
[2020-06-09 08:01] LABS: Glucose, Whole Blood 185 mg/dL (60-115)
[2020-06-09] MEDS: Insulin Lispro 100 UNIT/ML 3 ML VIAL SUBCUT ×3 (08:03→20:49)
[2020-06-09] MEDS: oxyCODONE HCl Immed Release 5 MG TABLET PO (08:04)
[2020-06-09] MEDS: Lactulose 20 GM/30 ML SOLUTION 10 GM PO (08:04)
[2020-06-09] MEDS: Atorvastatin Calcium 80 MG TABLET PO (08:04)
[2020-06-09] MEDS: Gabapentin 100 MG CAPSULE PO (08:04)
[2020-06-09] MEDS: Multivitamin TABLET 1 TAB PO (08:04)
[2020-06-09] MEDS: Finasteride 5 MG TABLET PO (08:04)
[2020-06-09] MEDS: 0.9 % Sodium Chloride Flush 3 ML SYRINGE IVFLUSH ×3 (08:04→20:52)
[2020-06-09] MEDS: amLODIPine Besylate 5 MG TABLET PO (08:06)
--- NOTE | 2020-06-09 10:16 | PM.PNGS ---
Subjective Subjective Date of Service: 06/09/20 Interval history: c/o pain on right leg otherwise no complaints says he is ok ongoing transfusion Physical Exam Vital Signs: Vital Signs: Last Vital Signs Temp 98.8 F 06/09/20 09:14 Pulse 96 06/09/20 09:14 Resp 18 06/09/20 09:14 BP 118/57 L 06/09/20 09:14 Pulse Ox 96 06/09/20 07:47 Body Mass Index 20.0 Laboratory Results - last 24 hr 06/06/20 06/08/20 06/08/20 11:06 11:10 15:46 WBC RBC Hgb Hct MCV MCH MCHC RDW Plt Count MPV Absolute Nucleated RBC Nucleated RBC % (a uto) POC Glucose 164 H 158 H Blood Type O Positive Antibody Screen NEGATIVE Crossmatch See Detail 06/08/20 06/09/20 06/09/20 20:21 06:21 07:47 WBC 5.6 RBC 2.30 L Hgb 6.7 L* Hct 20.7 L* MCV 90.0 MCH 29.1 MCHC 32.4 RDW 16.7 H Plt Count 242 MPV 9.1 L Absolute Nucleated RBC 0.000 Nucleated RBC % (a uto) 0.0 POC Glucose 100 185 H Blood Type Antibody Screen Crossmatch Const: General: comfortable and no acute distress GI: Palpation (GI): Soft to palpation and nontender Extrem: Other: left BKA stump clean, fern intact, no redness or drainage; right foot with small superficial ulcers, dry Progress Note: A&P Assessment and plan (1) Status post below-knee amputation of left lower extremity: Status: Acute Assessment and Plan: BKA stump looks good no signs of infection dressings changed - thick dry gauze with Kerlux and Jose right foot with superficial ulcers, stage 1 - dressings changed elevate foot off of bed ongoing transfusion for Hg of 6.7 Fall Risk Details Current Medications: Current Medications Generic Name Dose Route Start Last Admin Trade Name Freq PRN Reason Stop Dose Admin Acetaminophen 650 mg 06/04/20 16:34 Acetaminophen 325 Mg Tablet PO Q6H PRN Pain, Mild (Pain Scale 1-3) Albuterol Sulfate 2 puff 06/04/20 16:34 Albuterol Sulfate 90 Mcg 8 Gm Inhaler INHALE Q4H PRN Shortness Of Breath Or Wheezing Amlodipine Besylate 5 mg 06/05/20 09:00 06/09/20 08:06 Amlodipine Besylate 5 Mg Tablet PO 5 mg DAILY [facility] Administration Protocol Aspirin 81 mg 06/05/20 09:00 06/08/20 08:19 Aspirin Enteric Coated 81 Mg Tablet. PO 81 mg DAILY [facility] Administration Atorvastatin Calcium 80 mg 06/05/20 09:00 06/09/20 08:04 Atorvastatin Calcium 80 Mg Tablet PO 80 mg DAILY [facility] Administration Clopidogrel Bisulfate 75 mg 06/05/20 09:00 06/08/20 08:19 Clopidogrel Bisulfate 75 Mg Tablet PO 75 mg DAILY [facility] Administration Fentanyl 25 mcg 06/06/20 13:50 Fentanyl Citrate/Pf 100 Mcg/2 Ml Vial IVPUSH Q5M PRN Pain, Moderate (Pain Scale 4-6 Finasteride 5 mg 06/05/20 09:00 06/09/20 08:04 Finasteride 5 Mg Tablet PO 5 mg DAILY [facility] Administration Gabapentin 100 mg 06/05/20 09:00 06/09/20 08:04 Gabapentin 100 Mg Capsule PO 100 mg DAILY [facility] Administration Heparin Sodium (Porcine) 5,000 unit 06/04/20 16:34 06/09/20 04:30 Heparin Sodium,Porcine 5,000 Unit/Ml Vial SUBCUT 5,000 unit Q12H [facility] Administration Levofloxacin 500 mg in 100 mls @ 100 mls/hr 06/04/20 16:34 06/08/20 17:46 Levaquin IV Infused Q24H [facility] Infusion Metronidazole 500 mg in 100 mls @ 100 mls/hr 06/04/20 16:34 06/09/20 03:36 Flagyl IV Infused Q8H [facility] Infusion Promethazine HCl 12.5 mg/ 50.5 mls @ 202 mls/hr 06/06/20 13:50 Sodium Chloride IV ONCE PRN Nausea and Vomiting Insulin Glargine 10 unit 06/08/20 21:00 06/08/20 21:06 Insulin Glargine,Hum.Rec.Anlog 100 Unit/Ml 10 Ml Vial SUBCUT Not Given BEDTIME [facility] Insulin Human Lispro 0 unit 06/05/20 11:30 06/09/20 08:03 Insulin Lispro 100 Unit/Ml 3 Ml Vial SUBCUT 2 unit QIDACHS [facility] Administration Protocol Lactulose 10 gm 06/05/20 09:00 06/09/20 08:04 Lactulose 20 Gm/30 Ml Solution PO 10 gm DAILY [facility] Administration Morphine Sulfate 2 mg 06/04/20 16:34 06/08/20 15:24 Morphine Sulfate 4 Mg/Ml Cartridge IVPUSH 2 mg Q2H PRN Administration Pain, Severe (Pain Scale 7-10) Multivitamins/Vitamin C 1 tab 06/05/20 09:00 06/09/20 08:04 Multivitamin Tablet PO 1 tab DAILY [facility] Administration Ondansetron HCl 4 mg 06/04/20 16:34 06/07/20 08:29 Ondansetron Hcl 4 Mg/2 Ml Vial IVPUSH 4 mg Q8H PRN Administration Nausea and Vomiting Ondansetron HCl 4 mg 06/06/20 13:50 Ondansetron Hcl 4 Mg/2 Ml Vial IVPUSH ONCE PRN Nausea and Vomiting Oxycodone HCl 5 mg 06/04/20 16:34 06/09/20 08:04 Oxycodone Hcl Immed Release 5 Mg Tablet PO 5 mg Q6H PRN Administration Pain, Moderate (Pain Scale 4-6 Sodium Chloride 3 ml 06/04/20 16:34 06/09/20 08:04 0.9 % Sodium Chloride Flush 3 Ml Syringe IVFLUSH 3 ml QSHIFT [facility] Administration Tamsulosin HCl 0.4 mg 06/04/20 21:00 06/08/20 20:50 Tamsulosin Hcl 0.4 Mg Capsule PO 0.4 mg BEDTIME [facility] Administration Temazepam 15 mg 06/04/20 16:34 06/05/20 21:40 Temazepam 15 Mg Capsule PO 15 mg BEDTIME PRN Administration Insomnia Time Spent With Patient Time: Total time spent is greater than 50% in coordination of care (as documented) at patient's floor/unit and/or counseling patient: Time with patient: 15 - 24 minutes
--- NOTE | 2020-06-09 10:27 | HO.PM.IMPN ---
Subjective Subjective Date of Service: 06/09/20 Interval History: The patient was seen and evaluated this morning Laying in bed, looks comfortable and not in distress, sleepy pain medications No signs of bleeding, no reported bleeding overnight Hemoglobin dropped to 6.7 this morning Denies any fever, chills or shortness of breath No reported other overnight events. Systemic review: No fever, chills or weakness No chest pain, palpitation No shortness of breath or coughing No abdominal pain, nausea or vomiting No urinary symptoms No any rash or wounds Physical Exam Vital Signs: Vital Signs: Last Vital Signs Temp 98.8 F 06/09/20 09:14 Pulse 96 06/09/20 09:14 Resp 18 06/09/20 09:14 BP 118/57 L 06/09/20 09:14 Pulse Ox 96 06/09/20 07:47 Body Mass Index 20.0 Const: Other: Constitutional : Alert, oriented, not in distress Neck : Normal inspection, Supple Cardiovascular : RRR, S1 S2, no lower extremity edema Respiratory : Good bilateral air entry, no crackles, wheezes or rhonchi Gastrointestinal: soft, lax, Normal bowel sounds, Non tender Skin : Warm/Dry, right below-knee amputation, covered with dressing drainage noted. Neurological : Alert & oriented , No focal deficit Objective Data Current Medications Generic Name Dose Route Start Last Admin Trade Name Freq PRN Reason Stop Dose Admin Acetaminophen 650 mg 06/04/20 16:34 Acetaminophen 325 Mg Tablet PO Q6H PRN Pain, Mild (Pain Scale 1-3) Albuterol Sulfate 2 puff 06/04/20 16:34 Albuterol Sulfate 90 Mcg 8 Gm Inhaler INHALE Q4H PRN Shortness Of Breath Or Wheezing Amlodipine Besylate 5 mg 06/05/20 09:00 06/09/20 08:06 Amlodipine Besylate 5 Mg Tablet PO 5 mg DAILY [facility] Administration Protocol Aspirin 81 mg 06/05/20 09:00 06/08/20 08:19 Aspirin Enteric Coated 81 Mg Tablet. PO 81 mg DAILY [facility] Administration Atorvastatin Calcium 80 mg 06/05/20 09:00 06/09/20 08:04 Atorvastatin Calcium 80 Mg Tablet PO 80 mg DAILY [facility] Administration Clopidogrel Bisulfate 75 mg 06/05/20 09:00 06/08/20 08:19 Clopidogrel Bisulfate 75 Mg Tablet PO 75 mg DAILY [facility] Administration Fentanyl 25 mcg 06/06/20 13:50 Fentanyl Citrate/Pf 100 Mcg/2 Ml Vial IVPUSH Q5M PRN Pain, Moderate (Pain Scale 4-6 Finasteride 5 mg 06/05/20 09:00 06/09/20 08:04 Finasteride 5 Mg Tablet PO 5 mg DAILY [facility] Administration Gabapentin 100 mg 06/05/20 09:00 06/09/20 08:04 Gabapentin 100 Mg Capsule PO 100 mg DAILY [facility] Administration Heparin Sodium (Porcine) 5,000 unit 06/04/20 16:34 06/09/20 04:30 Heparin Sodium,Porcine 5,000 Unit/Ml Vial SUBCUT 5,000 unit Q12H [facility] Administration Levofloxacin 500 mg in 100 mls @ 100 mls/hr 06/04/20 16:34 06/08/20 17:46 Levaquin IV Infused Q24H [facility] Infusion Metronidazole 500 mg in 100 mls @ 100 mls/hr 06/04/20 16:34 06/09/20 10:18 Flagyl IV 100 mls/hr Q8H [facility] Administration Promethazine HCl 12.5 mg/ 50.5 mls @ 202 mls/hr 06/06/20 13:50 Sodium Chloride IV ONCE PRN Nausea and Vomiting Insulin Glargine 10 unit 06/08/20 21:00 06/08/20 21:06 Insulin Glargine,Hum.Rec.Anlog 100 Unit/Ml 10 Ml Vial SUBCUT Not Given BEDTIME [facility] Insulin Human Lispro 0 unit 06/05/20 11:30 06/09/20 08:03 Insulin Lispro 100 Unit/Ml 3 Ml Vial SUBCUT 2 unit QIDACHS [facility] Administration Protocol Lactulose 10 gm 06/05/20 09:00 06/09/20 08:04 Lactulose 20 Gm/30 Ml Solution PO 10 gm DAILY [facility] Administration Morphine Sulfate 2 mg 06/04/20 16:34 06/08/20 15:24 Morphine Sulfate 4 Mg/Ml Cartridge IVPUSH 2 mg Q2H PRN Administration Pain, Severe (Pain Scale 7-10) Multivitamins/Vitamin C 1 tab 06/05/20 09:00 06/09/20 08:04 Multivitamin Tablet PO 1 tab DAILY [facility] Administration Ondansetron HCl 4 mg 06/04/20 16:34 06/07/20 08:29 Ondansetron Hcl 4 Mg/2 Ml Vial IVPUSH 4 mg Q8H PRN Administration Nausea and Vomiting Ondansetron HCl 4 mg 06/06/20 13:50 Ondansetron Hcl 4 Mg/2 Ml Vial IVPUSH ONCE PRN Nausea and Vomiting Oxycodone HCl 5 mg 06/04/20 16:34 06/09/20 08:04 Oxycodone Hcl Immed Release 5 Mg Tablet PO 5 mg Q6H PRN Administration Pain, Moderate (Pain Scale 4-6 Sodium Chloride 3 ml 06/04/20 16:34 06/09/20 08:04 0.9 % Sodium Chloride Flush 3 Ml Syringe IVFLUSH 3 ml QSHIFT [facility] Administration Tamsulosin HCl 0.4 mg 06/04/20 21:00 06/08/20 20:50 Tamsulosin Hcl 0.4 Mg Capsule PO 0.4 mg BEDTIME [facility] Administration Temazepam 15 mg 06/04/20 16:34 06/05/20 21:40 Temazepam 15 Mg Capsule PO 15 mg BEDTIME PRN Administration Insomnia Labs CBC & Chem 7: 06/09/20 06:21 06/08/20 07:57 Microbiology Microbiology Results: Microbiology 06/04/20 12:24 Blood - Venous Blood Culture - Preliminary No growth after 48 hours. 06/04/20 11:57 Blood - Venous Blood Culture - Preliminary No growth after 48 hours. 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: Status: Acute (2) PVD (peripheral vascular disease): Status: Acute (3) Diabetes mellitus, type 2: Status: Inactive Assessment and Plan: A 74 years old male with PMH of BPH, CVA, dysphagia, PVD, HTN, diabetes among others who presented to the hospital with worsening left lower Diabetic foot heel ulcer post BKA day 3 On IV antibiotic of levofloxacin Flagyl per surgical team Long-term antibiotic not needed as source of infection removed Blood-loss anemia, acute Secondary to surgery and IV fluid HP dropped to 6.7 from baseline between 9-10 To give blood transfusion today Discontinue IV fluid One dose of Lasix after transfusion Continue to monitors CBC Hypoglycemia Diabetes type 2 blood sugar better controlled overnight Decrease Lantus to 10 units as he continue to have episodes of hypoglycemia SSI Hold oral medications HTN Continue amlodipine BPH continue finasteride and tamsulosin Peripheral vascular disease ASA, Plavix DVT PPX Heparin
[2020-06-09 11:40] LABS: Glucose, Whole Blood 142 mg/dL (60-115)
--- NOTE | 2020-06-09 14:39 | MHC.CM.PN ---
UPDATES SENT TO SNF REFERRALS. POSSIBLE DISCHARGE SATURDAY 06/10. CASE MANAGEMENT FOLLOWING
[2020-06-09] MEDS: levoFLOXacin/D5W 500 MG/100 ML PIGGYBACK 100 MG IV (15:52)
[2020-06-09 16:28] LABS: Glucose, Whole Blood 203 mg/dL (60-115)
[2020-06-09] MEDS: Morphine Sulfate 4 MG/ML CARTRIDGE 2 MG IVPUSH (17:30)
[2020-06-09 20:31] LABS: Glucose, Whole Blood 174 mg/dL (60-115)
[2020-06-09] MEDS: Tamsulosin HCL 0.4 MG CAPSULE PO (20:50)
[2020-06-09] MEDS: Insulin Glargine,Hum.rec.anlog 100 UNIT/ML 10 ML VIAL 10 UNIT SUBCUT (20:53)
[2020-06-10] MEDS: metroNIDAZOLE/NS 500 MG/100 ML PIGGYBACK 100 MG IV ×3 (01:24→16:37)
[2020-06-10 04:15] VITALS: BP 108/53; PULSE 80; RESP 19; TEMP 36.4; O2SAT 96
[2020-06-10] MEDS: Heparin Sodium,Porcine 5,000 UNIT/ML VIAL 5000 UNIT SUBCUT ×2 (04:56→16:42)
[2020-06-10] MEDS: oxyCODONE HCl Immed Release 5 MG TABLET PO (04:59)
[2020-06-10 07:01] LABS: Hematocrit 30.8 % (42-52); Mean Corpuscular HGB Conc 32.5 g/dl (31.0-36.0); Mean Corpuscular Hemoglobin 29.2 pg (27.0-33.0); Mean Corpuscular Volume 90.1 fL (80-98); Mean Platelet Volume 9.3 fL (9.4-12.4); Platelet Count 266 X10*3/uL (160-400); Red Blood Count 3.42 X10*6/uL (4.60-5.80); Red Cell Distribution Width 15.6 % (11.0-16.0); White Blood Count 5.9 X10*3/uL (4.8-10.8)
[2020-06-10 07:27] VITALS: BP 130/62; PULSE 82; RESP 18; TEMP 36.5; O2SAT 96
[2020-06-10 08:01] LABS: Glucose, Whole Blood 107 mg/dL (60-115)
[2020-06-10] MEDS: Lactulose 20 GM/30 ML SOLUTION 10 GM PO (09:54)
[2020-06-10] MEDS: Aspirin Enteric Coated 81 MG TABLET.DR PO (09:55)
[2020-06-10] MEDS: Gabapentin 100 MG CAPSULE PO (09:55)
[2020-06-10] MEDS: Multivitamin TABLET 1 TAB PO (09:55)
[2020-06-10] MEDS: Clopidogrel Bisulfate 75 MG TABLET PO (09:55)
[2020-06-10] MEDS: Finasteride 5 MG TABLET PO (09:55)
[2020-06-10] MEDS: Atorvastatin Calcium 80 MG TABLET PO (09:55)
[2020-06-10] MEDS: 0.9 % Sodium Chloride Flush 3 ML SYRINGE IVFLUSH ×2 (09:57→16:41)
[2020-06-10 11:17] LABS: Glucose, Whole Blood 147 mg/dL (60-115)
--- NOTE | 2020-06-10 14:40 | HO.PM.IMPN ---
Subjective Subjective Date of Service: 06/10/20 Interval History: Patient seen and examined at bedside Denies any complaint Review of Systems No fever, chills or weakness No chest pain, palpitation No shortness of breath or coughing No abdominal pain, nausea or vomiting No urinary symptoms Bilateral lower extremities wounds, left heel ulcers. Physical Exam Vital Signs: Vital Signs: Last Vital Signs Temp 97.7 F 06/10/20 07:27 Pulse 82 06/10/20 07:27 Resp 18 06/10/20 07:27 BP 130/62 06/10/20 07:27 Pulse Ox 96 06/10/20 07:27 Body Mass Index 20.0 Const: Other: Constitutional : Alert, oriented, not in distress Neck : Normal inspection, Supple Cardiovascular : RRR, S1 S2, no lower extremity edema Respiratory : Good bilateral air entry, no crackles, wheezes or rhonchi Gastrointestinal: soft, lax, Normal bowel sounds, Non tender Skin : Warm/Dry, right below-knee amputation, covered with dressing drainage noted. Neurological : Alert & oriented , No focal deficit Objective Data Current Medications Generic Name Dose Route Start Last Admin Trade Name Freq PRN Reason Stop Dose Admin Acetaminophen 650 mg 06/04/20 16:34 Acetaminophen 325 Mg Tablet PO Q6H PRN Pain, Mild (Pain Scale 1-3) Albuterol Sulfate 2 puff 06/04/20 16:34 Albuterol Sulfate 90 Mcg 8 Gm Inhaler INHALE Q4H PRN Shortness Of Breath Or Wheezing Amlodipine Besylate 5 mg 06/05/20 09:00 06/09/20 08:06 Amlodipine Besylate 5 Mg Tablet PO 5 mg DAILY RENETTA Administration Protocol Aspirin 81 mg 06/05/20 09:00 06/10/20 09:55 Aspirin Enteric Coated 81 Mg Tablet. PO 81 mg DAILY RENETTA Administration Atorvastatin Calcium 80 mg 06/05/20 09:00 06/10/20 09:55 Atorvastatin Calcium 80 Mg Tablet PO 80 mg DAILY RENETTA Administration Clopidogrel Bisulfate 75 mg 06/05/20 09:00 06/10/20 09:55 Clopidogrel Bisulfate 75 Mg Tablet PO 75 mg DAILY RENETTA Administration Fentanyl 25 mcg 06/06/20 13:50 Fentanyl Citrate/Pf 100 Mcg/2 Ml Vial IVPUSH Q5M PRN Pain, Moderate (Pain Scale 4-6 Finasteride 5 mg 06/05/20 09:00 06/10/20 09:55 Finasteride 5 Mg Tablet PO 5 mg DAILY RENETTA Administration Gabapentin 100 mg 06/05/20 09:00 06/10/20 09:55 Gabapentin 100 Mg Capsule PO 100 mg DAILY RENETTA Administration Heparin Sodium (Porcine) 5,000 unit 06/04/20 16:34 06/10/20 04:56 Heparin Sodium,Porcine 5,000 Unit/Ml Vial SUBCUT 5,000 unit Q12H RENETTA Administration Levofloxacin 500 mg in 100 mls @ 100 mls/hr 06/04/20 16:34 06/09/20 16:57 Levaquin IV Infused Q24H [facility] Infusion Metronidazole 500 mg in 100 mls @ 100 mls/hr 06/04/20 16:34 06/10/20 11:07 Flagyl IV Infused Q8H [facility] Infusion Promethazine HCl 12.5 mg/ 50.5 mls @ 202 mls/hr 06/06/20 13:50 Sodium Chloride IV ONCE PRN Nausea and Vomiting Insulin Glargine 10 unit 06/08/20 21:00 06/09/20 20:53 Insulin Glargine,Hum.Rec.Anlog 100 Unit/Ml 10 Ml Vial SUBCUT 10 unit BEDTIME [facility] Administration Insulin Human Lispro 0 unit 06/05/20 11:30 06/10/20 11:33 Insulin Lispro 100 Unit/Ml 3 Ml Vial SUBCUT Not Given QIDACHS [facility] Protocol Lactulose 10 gm 06/05/20 09:00 06/10/20 09:54 Lactulose 20 Gm/30 Ml Solution PO 10 gm DAILY [facility] Administration Morphine Sulfate 2 mg 06/09/20 17:17 06/09/20 17:30 Morphine Sulfate 4 Mg/Ml Cartridge IVPUSH 2 mg Q2H PRN Administration Pain, Severe (Pain Scale 7-10) Multivitamins/Vitamin C 1 tab 06/05/20 09:00 06/10/20 09:55 Multivitamin Tablet PO 1 tab DAILY [facility] Administration Ondansetron HCl 4 mg 06/04/20 16:34 06/07/20 08:29 Ondansetron Hcl 4 Mg/2 Ml Vial IVPUSH 4 mg Q8H PRN Administration Nausea and Vomiting Ondansetron HCl 4 mg 06/06/20 13:50 Ondansetron Hcl 4 Mg/2 Ml Vial IVPUSH ONCE PRN Nausea and Vomiting Oxycodone HCl 5 mg 06/09/20 17:14 06/10/20 04:59 Oxycodone Hcl Immed Release 5 Mg Tablet PO 5 mg Q6H PRN Administration Pain, Severe (Pain Scale 7-10) Sodium Chloride 3 ml 06/04/20 16:34 06/10/20 09:57 0.9 % Sodium Chloride Flush 3 Ml Syringe IVFLUSH 3 ml QSHIFT [facility]ETTA Administration Tamsulosin HCl 0.4 mg 06/04/20 21:00 06/09/20 20:50 Tamsulosin Hcl 0.4 Mg Capsule PO 0.4 mg BEDTIME [facility] Administration Labs CBC & Chem 7: 06/10/20 06:24 06/08/20 07:57 Microbiology Microbiology Results: Microbiology 06/04/20 12:24 Blood - Venous Blood Culture - Final No growth after 5 days. 06/04/20 11:57 Blood - Venous Blood Culture - Final No growth after 5 days. 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: Status: Acute (2) PVD (peripheral vascular disease): Status: Acute (3) Diabetes mellitus, type 2: Status: Inactive Assessment and Plan: A 74 years old male with PMH of BPH, CVA, dysphagia, PVD, HTN, diabetes among others who presented to the hospital with worsening left lower Diabetic foot heel ulcer post BKA day 4 On IV antibiotic of levofloxacin Flagyl per surgical team Management per surgical For acute postoperative blood loss anemia Hemoglobin dropped to 6.7 Received 2 units of PRBCs improved 10 today Monitor CBC Hypoglycemia resolved Diabetes type 2 Continue Lantus and sliding scale Monitor blood glucose HTN Continue amlodipine BPH continue finasteride and tamsulosin Peripheral vascular disease ASA, Plavix DVT PPX Heparin
[2020-06-10 15:42] VITALS: BP 122/61; PULSE 86; RESP 18; TEMP 36; O2SAT 95
--- NOTE | 2020-06-10 16:01 | MHC.CLN ---
F/U PO INTAKE 75/100% CONTINUES DIET RX: 2000DM-APPROPRIATE PT RECEIVING PROSOURCE AND SHEREE TO PROMOTE WOUND HEALING FOLLOWING
--- NOTE | 2020-06-10 16:03 | P.PNGS_ITS ---
Subjective Subjective Date of Service: 06/10/20 Interval history: Patient complaining of some soreness in the left leg but does feel improved. Physical Exam Vital Signs: Vital Signs: Last Vital Signs Temp 96.8 F 06/10/20 15:42 Pulse 86 06/10/20 15:42 Resp 18 06/10/20 15:42 BP 122/61 06/10/20 15:42 Pulse Ox 95 06/10/20 15:42 Body Mass Index 20.0 Const: General: cooperative, healthy appearing and comfortable Resp: Effort & Inspection: normal respiratory effort Cardio: Jugular venous distension: no JVD Rate: regular rate Skin: General skin exam: no rashes or lesions noted Extrem: Other: Dressings to bilateral legs are clean, dry, and intact. Knee immobilizer in place on the left leg. Progress Note: A&P Assessment and plan (1) Status post below-knee amputation of left lower extremity: Status: Acute Assessment and Plan: Patient with history of nonhealing ulcer of the left heel now status post left below-knee amputation. Patient tolerated procedure well but did have a decrease in his hemoglobin hematocrit over the weekend. He received transfusion yesterday and his blood count is improved today. Dressings are clean and intact will be changed tomorrow. Will recheck CBC in a.m.. Continue local wound care for right foot. Fall Risk Details Current Medications: Current Medications Generic Name Dose Route Start Last Admin Trade Name Freq PRN Reason Stop Dose Admin Acetaminophen 650 mg 06/04/20 16:34 Acetaminophen 325 Mg Tablet PO Q6H PRN Pain, Mild (Pain Scale 1-3) Albuterol Sulfate 2 puff 06/04/20 16:34 Albuterol Sulfate 90 Mcg 8 Gm Inhaler INHALE Q4H PRN Shortness Of Breath Or Wheezing Amlodipine Besylate 5 mg 06/05/20 09:00 06/09/20 08:06 Amlodipine Besylate 5 Mg Tablet PO 5 mg DAILY RENETTA Administration Protocol Aspirin 81 mg 06/05/20 09:00 06/10/20 09:55 Aspirin Enteric Coated 81 Mg Tablet. PO 81 mg DAILY REN[facility]TA Administration Atorvastatin Calcium 80 mg 06/05/20 09:00 06/10/20 09:55 Atorvastatin Calcium 80 Mg Tablet PO 80 mg DAILY [facility] Administration Clopidogrel Bisulfate 75 mg 06/05/20 09:00 06/10/20 09:55 Clopidogrel Bisulfate 75 Mg Tablet PO 75 mg DAILY [facility] Administration Finasteride 5 mg 06/05/20 09:00 06/10/20 09:55 Finasteride 5 Mg Tablet PO 5 mg DAILY [facility] Administration Gabapentin 100 mg 06/05/20 09:00 06/10/20 09:55 Gabapentin 100 Mg Capsule PO 100 mg DAILY [facility] Administration Heparin Sodium (Porcine) 5,000 unit 06/04/20 16:34 06/10/20 04:56 Heparin Sodium,Porcine 5,000 Unit/Ml Vial SUBCUT 5,000 unit Q12H [facility] Administration Levofloxacin 500 mg in 100 mls @ 100 mls/hr 06/04/20 16:34 06/09/20 16:57 Levaquin IV Infused Q24H [facility] Infusion Metronidazole 500 mg in 100 mls @ 100 mls/hr 06/04/20 16:34 06/10/20 11:07 Flagyl IV Infused Q8H [facility] Infusion Insulin Glargine 10 unit 06/08/20 21:00 06/09/20 20:53 Insulin Glargine,Hum.Rec.Anlog 100 Unit/Ml 10 Ml Vial SUBCUT 10 unit BEDTIME [facility] Administration Insulin Human Lispro 0 unit 06/05/20 11:30 06/10/20 11:33 Insulin Lispro 100 Unit/Ml 3 Ml Vial SUBCUT Not Given QIDACHS [facility] Protocol Lactulose 10 gm 06/05/20 09:00 06/10/20 09:54 Lactulose 20 Gm/30 Ml Solution PO 10 gm DAILY [facility] Administration Morphine Sulfate 2 mg 06/09/20 17:17 06/09/20 17:30 Morphine Sulfate 4 Mg/Ml Cartridge IVPUSH 2 mg Q2H PRN Administration Pain, Severe (Pain Scale 7-10) Multivitamins/Vitamin C 1 tab 06/05/20 09:00 06/10/20 09:55 Multivitamin Tablet PO 1 tab DAILY [facility] Administration Ondansetron HCl 4 mg 06/04/20 16:34 06/07/20 08:29 Ondansetron Hcl 4 Mg/2 Ml Vial IVPUSH 4 mg Q8H PRN Administration Nausea and Vomiting Oxycodone HCl 5 mg 06/09/20 17:14 06/10/20 04:59 Oxycodone Hcl Immed Release 5 Mg Tablet PO 5 mg Q6H PRN Administration Pain, Severe (Pain Scale 7-10) Sodium Chloride 3 ml 06/04/20 16:34 06/10/20 09:57 0.9 % Sodium Chloride Flush 3 Ml Syringe IVFLUSH 3 ml QSHIFT R[facility]TA Administration Tamsulosin HCl 0.4 mg 06/04/20 21:00 06/09/20 20:50 Tamsulosin Hcl 0.4 Mg Capsule PO 0.4 mg BEDTIME R[facility]TA Administration Time Spent With Patient Time: Total time spent is greater than 50% in coordination of care (as documented) at patient's floor/unit and/or counseling patient: Time with patient: 15 - 24 minutes
[2020-06-10] MEDS: levoFLOXacin/D5W 500 MG/100 ML PIGGYBACK 100 MG IV (16:41)
[2020-06-10] MEDS: Insulin Lispro 100 UNIT/ML 3 ML VIAL SUBCUT ×2 (16:43→20:51)
[2020-06-10 16:54] LABS: Glucose, Whole Blood 216 mg/dL (60-115)
[2020-06-10 20:32] LABS: Glucose, Whole Blood 218 mg/dL (60-115)
[2020-06-10] MEDS: Insulin Glargine,Hum.rec.anlog 100 UNIT/ML 10 ML VIAL 10 UNIT SUBCUT (20:50)
[2020-06-10] MEDS: Tamsulosin HCL 0.4 MG CAPSULE PO (20:51)
[2020-06-11] VITALS: BP 109/61; PULSE 85; RESP 18; TEMP 36.3; O2SAT 97
[2020-06-11] MEDS: metroNIDAZOLE/NS 500 MG/100 ML PIGGYBACK 100 MG IV ×2 (01:43→08:00)
[2020-06-11] MEDS: Heparin Sodium,Porcine 5,000 UNIT/ML VIAL 5000 UNIT SUBCUT ×2 (04:12→16:36)
[2020-06-11 06:16] LABS: Hematocrit 31.1 % (42-52); Hemoglobin 9.9 g/dl (14.0-18.0); Mean Corpuscular HGB Conc 31.8 g/dl (31.0-36.0); Mean Corpuscular Hemoglobin 28.9 pg (27.0-33.0); Mean Corpuscular Volume 90.9 fL (80-98); Mean Platelet Volume 8.9 fL (9.4-12.4); Platelet Count 274 X10*3/uL (160-400); Red Blood Count 3.42 X10*6/uL (4.60-5.80); Red Cell Distribution Width 16.1 % (11.0-16.0); White Blood Count 5.3 X10*3/uL (4.8-10.8)
[2020-06-11 07:45] VITALS: BP 107/54; PULSE 81; RESP 18; TEMP 36.2; O2SAT 98
[2020-06-11 07:51] LABS: Glucose, Whole Blood 189 mg/dL (60-115)
[2020-06-11] MEDS: Lactulose 20 GM/30 ML SOLUTION 10 GM PO (07:59)
[2020-06-11 08:00] VITALS: BP 107/54; PULSE 81
[2020-06-11] MEDS: 0.9 % Sodium Chloride Flush 3 ML SYRINGE IVFLUSH ×2 (08:00→16:36)
[2020-06-11] MEDS: Insulin Lispro 100 UNIT/ML 3 ML VIAL SUBCUT ×3 (08:00→16:36)
[2020-06-11] MEDS: Atorvastatin Calcium 80 MG TABLET PO (08:00)
[2020-06-11] MEDS: Clopidogrel Bisulfate 75 MG TABLET PO (08:00)
[2020-06-11] MEDS: Finasteride 5 MG TABLET PO (08:00)
[2020-06-11] MEDS: oxyCODONE HCl Immed Release 5 MG TABLET PO (08:00)
[2020-06-11] MEDS: amLODIPine Besylate 5 MG TABLET PO (08:00)
[2020-06-11] MEDS: Aspirin Enteric Coated 81 MG TABLET.DR PO (08:00)
[2020-06-11] MEDS: Multivitamin TABLET 1 TAB PO (08:01)
[2020-06-11] MEDS: Gabapentin 100 MG CAPSULE PO (08:01)
--- NOTE | 2020-06-11 08:31 | PM.PNGS ---
Subjective Subjective Date of Service: 06/11/20 Interval history: No new complaints, status post left below-knee amputation Physical Exam Vital Signs: Vital Signs: Last Vital Signs Temp 97.2 F 06/11/20 07:45 Pulse 81 06/11/20 08:00 Resp 18 06/11/20 07:45 BP 107/54 L 06/11/20 08:00 Pulse Ox 98 06/11/20 07:45 Body Mass Index 20.0 Const: General: cooperative, comfortable, no acute distress, alert and awake Skin: General skin exam: no rashes or lesions noted Extrem: Other: Left knee with a new area of ecchymosis. Knee immobilizer removed. Dressings changed. Wounds are clean, dry, and intact. No hematoma, wound separation, or infection is identified. Clean sterile dressings applied. Knee immobilizer kept off due to bruising. Right foot dressings changed and the loose fluffy dressing applied. Progress Note: A&P Assessment and plan (1) Status post below-knee amputation of left lower extremity: Status: Acute Assessment and Plan: 74-year-old male patient status post left below-knee amputation for nonhealing heel ulcer. He also has multiple small ulcers of the right foot which are being observed after debridement. Discussed with physical therapy this morning and he is not a candidate for a prosthetic as he has not walked for over year. Dressings changed today and wounds are clean and intact. Patient is ready for discharge to rehab facility. Hemoglobin is stable this morning with no evidence of ongoing bleeding. Fall Risk Details Current Medications: Current Medications Generic Name Dose Route Start Last Admin Trade Name Freq PRN Reason Stop Dose Admin Acetaminophen 650 mg 06/04/20 16:34 Acetaminophen 325 Mg Tablet PO Q6H PRN Pain, Mild (Pain Scale 1-3) Albuterol Sulfate 2 puff 06/04/20 16:34 Albuterol Sulfate 90 Mcg 8 Gm Inhaler INHALE Q4H PRN Shortness Of Breath Or Wheezing Amlodipine Besylate 5 mg 06/05/20 09:00 06/11/20 08:00 Amlodipine Besylate 5 Mg Tablet PO 5 mg DAILY [facility] Administration Protocol Aspirin 81 mg 06/05/20 09:00 06/11/20 08:00 Aspirin Enteric Coated 81 Mg Tablet. PO 81 mg DAILY [facility] Administration Atorvastatin Calcium 80 mg 06/05/20 09:00 06/11/20 08:00 Atorvastatin Calcium 80 Mg Tablet PO 80 mg DAILY [facility] Administration Clopidogrel Bisulfate 75 mg 06/05/20 09:00 06/11/20 08:00 Clopidogrel Bisulfate 75 Mg Tablet PO 75 mg DAILY [facility] Administration Finasteride 5 mg 06/05/20 09:00 06/11/20 08:00 Finasteride 5 Mg Tablet PO 5 mg DAILY [facility] Administration Gabapentin 100 mg 06/05/20 09:00 06/11/20 08:01 Gabapentin 100 Mg Capsule PO 100 mg DAILY [facility] Administration Heparin Sodium (Porcine) 5,000 unit 06/04/20 16:34 06/11/20 04:12 Heparin Sodium,Porcine 5,000 Unit/Ml Vial SUBCUT 5,000 unit Q12H [facility] Administration Levofloxacin 500 mg in 100 mls @ 100 mls/hr 06/04/20 16:34 06/10/20 17:46 Levaquin IV Infused Q24H [facility] Infusion Metronidazole 500 mg in 100 mls @ 100 mls/hr 06/04/20 16:34 06/11/20 08:00 Flagyl IV 100 mls/hr Q8H [facility] Administration Insulin Glargine 10 unit 06/08/20 21:00 06/10/20 20:50 Insulin Glargine,Hum.Rec.Anlog 100 Unit/Ml 10 Ml Vial SUBCUT 10 unit BEDTIME [facility] Administration Insulin Human Lispro 0 unit 06/05/20 11:30 06/11/20 08:00 Insulin Lispro 100 Unit/Ml 3 Ml Vial SUBCUT 2 unit QIDACHS [facility] Administration Protocol Lactulose 10 gm 06/05/20 09:00 06/11/20 07:59 Lactulose 20 Gm/30 Ml Solution PO 10 gm DAILY [facility]TA Administration Morphine Sulfate 2 mg 06/09/20 17:17 06/09/20 17:30 Morphine Sulfate 4 Mg/Ml Cartridge IVPUSH 2 mg Q2H PRN Administration Pain, Severe (Pain Scale 7-10) Multivitamins/Vitamin C 1 tab 06/05/20 09:00 06/11/20 08:01 Multivitamin Tablet PO 1 tab DAILY [facility] Administration Ondansetron HCl 4 mg 06/04/20 16:34 06/07/20 08:29 Ondansetron Hcl 4 Mg/2 Ml Vial IVPUSH 4 mg Q8H PRN Administration Nausea and Vomiting Oxycodone HCl 5 mg 06/09/20 17:14 06/11/20 08:00 Oxycodone Hcl Immed Release 5 Mg Tablet PO 5 mg Q6H PRN Administration Pain, Severe (Pain Scale 7-10) Sodium Chloride 3 ml 06/04/20 16:34 06/11/20 08:00 0.9 % Sodium Chloride Flush 3 Ml Syringe IVFLUSH 3 ml QSHIFT [facility] Administration Tamsulosin HCl 0.4 mg 06/04/20 21:00 06/10/20 20:51 Tamsulosin Hcl 0.4 Mg Capsule PO 0.4 mg BEDTIME [facility] Administration Time Spent With Patient Time: Total time spent is greater than 50% in coordination of care (as documented) at patient's floor/unit and/or counseling patient: Time with patient: 25 - 35 minutes
--- NOTE | 2020-06-11 08:48 | P.DS_ITS ---
DS: Providers Provider Date of Service: 06/11/20 Date of admission: 06/04/20 16:34 Primary care physician: Maxime Fernandez MD Consults: 06/04/20 11:41 Consult to General Surgery Stat Consulting Provider: Uriel Yin Reason for consultation: heel wound 06/04/20 12:24 Consult to Hospitalist Stat Consulting Provider: Hospitalist Reason For Exam: Multiple comorbidities, per surgery request DS: Diagnosis Discharge Diagnosis (1) Status post below-knee amputation of left lower extremity: Status: Acute (2) Diabetic foot ulcer associated with diabetes mellitus due to underlying condition: Status: Acute (3) Open wnd foot-complicated: Status: Acute (4) Anemia: Status: Acute DS: Medications Discharge Medications Home Medications: Home Medications Medication Instructions Recorded Confirmed Lantus Solostar U-100 Insulin 45 unit SUBCUT BEDTIME 01/01/20 06/04/20 albuterol sulfate 2 puff PO Q4-6H PRN 01/01/20 06/04/20 clopidogrel 75 mg PO DAILY 01/01/20 06/04/20 glimepiride 1 mg PO DAILY 01/01/20 06/04/20 atorvastatin 80 mg tablet 80 mg PO DAILY 02/12/20 06/04/20 aspirin 81 mg PO DAILY 05/02/20 06/04/20 finasteride 5 mg PO DAILY 05/02/20 06/04/20 melatonin 3 mg PO BEDTIME PRN 05/02/20 06/04/20 multivitamin [Daily-Casa] 1 tab PO DAILY 05/02/20 06/04/20 tamsulosin 0.4 mg PO BEDTIME 05/02/20 06/04/20 amlodipine 1 tab PO DAILY 06/04/20 06/04/20 gabapentin 1 cap PO DAILY 06/04/20 06/04/20 lactulose 15 ml PO DAILY 06/04/20 06/04/20 DS: Summary Hospital Course Hospital Course: BRIEF HPI: Daron Kimble is a 74 year old male presenting with a known history of diabetic foot ulceration and a large heel ulcer on the left side extending to bone. Patient has been undergoing wound care therapy as an outpatient but is no t improving. The patient is reporting increased pain in the foot. Pain is also extending up above the ankle. HOSPITAL COURSE: The ulcer is unlikely to heal given its location in the involvement of bone and this was discussed this with [facility] and they felt amputation would be the next best step. Patient was admitted to the surgical service for in anticipation of a possible below-knee amputation. He was started on IV flagyl and levaquin, IVF. Hospitalist consultation was requested. On 06/06/20, a left BKA and debridement of right foot ulcers was performed by Dr. Uriel Yin without complication. The patient tolerated the procedure well and was admitted back to the medical/surgical floor for observation and pain control post operatively. The patient had an uncomplicated post operative course but did require transfusion with 2U PRBC during his stay for anemia contributed to acute blood loss and IV fluids. He received a dose of lasix following the transfusion. His H/H christian appropriately and remained stable. His left BKA site remained clean with the suture/staple line intact. He remained inpatient for 5 days post operatively for pain control and monitoring of his H/H. He was initially put in a knee immobilizer as he had difficulty keeping his leg straight in anticipation of a future prosthesis. However, after he was seen by PT, they thought he would not be a candidate for a prosthesis given he is mostly wheelchair bound and the knee immobilizer was discontinued. During the stay, he also experienced hypoglycemia. His lantus dose was reduced to 10 units at bedtime and started on an ISS. His POCs improved without further episodes of hypoglycemia. His home dose was reduced to lantus 10 Units subq at bedtime with resumption of his glimepiride. On the day of discharge, his pain was well controlled and he was tolerating a solid diet. His vitals were stable and amputation site remained clean. His H/H was stable. He felt ready for discharge. He was transferred to [facility] in stable condition. Status at Discharge Functional status at discharge: wheelchair bound Overall status at discharge: patient is progressing back to baseline Time Spent with Patient Time attestation: Total time spent providing and/or coordinating discharge services: Discharge coordination time: Greater than 30 minutes Physical Exam Vital Signs: Vital Signs: Last Vital Signs Temp 97.2 F 06/11/20 07:45 Pulse 81 06/11/20 08:00 Resp 18 06/11/20 07:45 BP 107/54 L 06/11/20 08:00 Pulse Ox 98 06/11/20 07:45 Body Mass Index 20.0 Const: General: comfortable, no acute distress and alert Orientation/consciousness: patient oriented x3 Eyes: Sclerae: sclerae normal Resp: Effort & Inspection: normal respiratory effort Cardio: Rate: regular rate Skin: General skin exam: no rashes or lesions noted Neuro: General: patient oriented x3 Extrem: Other: left BKA site with sutures/fern intact, incision site clean, no erythema or edema noted; right foot kerlix wrap intact DS: Data Data Completed and Pending Completed studies during hospitalization [Text1]: 06/06/20 13:02 Surgical [PTH] Routine Left lower leg, amputation: - Skin and subcutaneous tissue with ulceration and gangrenous necrosis. - Acute osteomyelitis; osteonecrosis. - Arteriosclerosis. - Viable tissue present at margin. Procedures Dilation of Left Peroneal Artery using Drug-Coated Balloon, Percutaneous Approach (05/02/20) Dilation of Left Popliteal Artery using Drug-Coated Balloon, Percutaneous Approach (05/02/20) Excision of Left Foot Subcutaneous Tissue and Fascia, Open Approach (05/02/20) Excision of Right Foot Tendon, Open Approach (05/02/20) Labs on day of discharge: Laboratory Results - last 24 hr 06/09/20 06/10/20 06/10/20 06:21 11:11 16:26 WBC RBC Hgb Hct MCV MCH MCHC RDW Plt Count MPV Absolute Nucleated RBC Nucleated RBC % (auto) Smear Path Review SEE NOTE POC Glucose 147 H 216 H 06/10/20 06/11/20 06/11/20 20:28 05:57 07:47 WBC 5.3 RBC 3.42 L Hgb 9.9 L Hct 31.1 L MCV 90.9 MCH 28.9 MCHC 31.8 RDW 16.1 H Plt Count 274 MPV 8.9 L Absolute Nucleated RBC 0.000 Nucleated RBC % (auto) 0.0 Smear Path Review POC Glucose 218 H 189 H Discharge Plan Discharge Patient Disposition: [facility] Referrals: Uriel Yin MD [Physician] - 1 Week Name,MD Maxime [Primary Care Provider] - (SNF-) Discharge Medications: New oxycodone 5 mg tablet 5 mg PO Q4H PRN (Reason: pain (scale score 7-10)) Qty: 26 RF: 0 Continued amlodipine 5 mg tablet 1 tab PO DAILY RF: 0 gabapentin 100 mg capsule 1 cap PO DAILY RF: 0 lactulose 10 gram/15 mL solution 15 ml PO DAILY RF: 0 clopidogrel 75 mg tablet 75 mg PO DAILY RF: 0 Hold Instructions: Resume on 01/09/20. Hold Plavix until Wednesday, if patient still has hematuria discussed with PCP for further use. glimepiride 1 mg tablet 1 mg PO DAILY RF: 0 albuterol sulfate 90 mcg/actuation HFA aerosol inhaler 2 puff PO Q4-6H PRN (Reason: Shortness Of Breath Or Wheezing) RF: 0 multivitamin [Daily-Casa] Tablet 1 tab PO DAILY RF: 0 aspirin 81 mg Tablet,Delayed Release (Dr/Ec) 81 mg PO DAILY RF: 0 tamsulosin 0.4 mg Capsule 0.4 mg PO BEDTIME RF: 0 finasteride 5 mg Tablet 5 mg PO DAILY RF: 0 melatonin 3 mg Capsule 3 mg PO BEDTIME PRN (Reason: BEDTIME) RF: 0 atorvastatin 80 mg tablet 80 mg PO DAILY RF: 0 Changed Lantus Solostar U-100 Insulin 100 unit/mL (3 mL) insulin pen 10 unit subcut BEDTIME Qty: 0 RF: 0 Discharge Orders: Discharge Order (Routine); Ordered 06/11/20 Ordered By: Adelina Maki Diet: advance to usual diet Activity on Discharge: wheelchair Stand Alone Forms: Patient Portal Discharge page Activity Restrictions/Additional Instructions: DRESSING CHANGES : (daily and PRN) LEFT BKA SITE: fluffs followed by abdominal dressing,kerlix wrap and tolu wrap RIGHT FOOT ULCERS: xeroform to wound bases, fluffs followed by kerlix wrap Care Plan Goals: Healing of left BKA site Health Concerns: Diabetes Mellitus, HTN, diabetic foot ulcers s/p left BKA Plan of Treatment: Transfer to SNF, f/u in office
[2020-06-11 11:33] LABS: Glucose, Whole Blood 264 mg/dL (60-115)
[2020-06-11 13:54] LABS: COVID-19 Test Negative (Negative)
[2020-06-11 15:20] VITALS: BP 119/61; PULSE 81; RESP 19; TEMP 36.7; O2SAT 96
--- NOTE | 2020-06-11 16:03 | MHC.CM.PN ---
nurse palliative care nurse ntoe eectronic medical record reviewex along with case discussed with hospitlaist , physical theaprist staff nruse patient with ashly and his sn tha , after review with patient and his son they chose [facility] for short term rehab anticipate [place] at 5-6 pm tonight if insuurance authroization comes through he sailaja be transported via [facility]
[2020-06-11 16:12] LABS: Glucose, Whole Blood 285 mg/dL (60-115)
== END 2020-06-11 17:30 | disposition skilled nursing facility (03) | DRG 240 ==
LOC: HO.ED 13:53 → HO.EDOVER 16:44 → HO.IMC 17:11 → HO.S3 22:48
PROVIDERS: Nurse Practitioner Primary Care; Physician Assistant Surgical; Student in an Organized Health Care Education/Training Program; Admitting Provider Surgery; Emergency Provider Emergency Medicine Emergency Medical Services; PCP Internal Medicine Geriatric Medicine; Visit Provider Surgery
PROC: 0Y6J0Z1 Detachment at Left Lower Leg, High, Open Approach (ICD-10-PCS; CPT 27880; principal; 2020-06-06 13:10)
DX: E11.51 Type 2 diabetes mellitus with diabetic peripheral angiopathy without gangrene (principal); L97.424 Non-pressure chronic ulcer of left heel and midfoot with necrosis of bone; L97.319 Non-pressure chronic ulcer of right ankle with unspecified severity; M86.172 Other acute osteomyelitis, left ankle and foot; D62 Acute posthemorrhagic anemia; E11.649 Type 2 diabetes mellitus with hypoglycemia without coma; L97.519 Non-pressure chronic ulcer of other part of right foot with unspecified severity; I70.244 Atherosclerosis of native arteries of left leg with ulceration of heel and midfoot; E11.69 Type 2 diabetes mellitus with other specified complication; I10 Essential (primary) hypertension; I70.233 Atherosclerosis of native arteries of right leg with ulceration of ankle; I70.235 Atherosclerosis of native arteries of right leg with ulceration of other part of foot; N40.0 Benign prostatic hyperplasia without lower urinary tract symptoms; Z20.822 Contact with and (suspected) exposure to COVID-19; Z79.4 Long term (current) use of insulin; Z79.02 Long term (current) use of antithrombotics/antiplatelets; Z79.82 Long term (current) use of aspirin; Z79.899 Other long term (current) drug therapy
CPT/HCPCS: 36415; 71045; 80048; 80053; 81001; 82947; 83605; 85025; 85027; 85060; 85610; 85730; 86850; 86900; 86923; 87040; 87635; 88307; 88311; 93005; 96365; 96368; 97162; 99024; 99284; 99285; J0690; J1956; J2250; J2270; J2405; J2543; J3010; J3370; P9016

== ENCOUNTER → 2020-06-21 10:57 | Outpatient (BNVA) | payer MEDICARE, SELFPAY | PROVIDERS: PCP Internal Medicine Geriatric Medicine; Visit Provider Surgery | DX: Z47.1 Aftercare following joint replacement surgery (principal); E08.621 Diabetes mellitus due to underlying condition with foot ulcer; L97.509 Non-pressure chronic ulcer of other part of unspecified foot with unspecified severity; Z89.512 Acquired absence of left leg below knee | CPT/HCPCS: 99212 ==

== ENCOUNTER 2020-07-19 15:35 | Emergency (ER) | payer MEDICARE, SELFPAY ==
[2020-07-19 15:43] VITALS: BP 129/63; PULSE 87; RESP 16; TEMP 36.9; O2SAT 96; BMI 26.0
--- NOTE | 2020-07-19 16:23 | ED.EXTPRO ---
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 peripheral vascular disease sent from rehab for recheck of the wound as he missed the PCP appointment yesterday patient feeling otherwise normal no significant pus discharge no fever Patient and patient's family do not know why he was sent to ER Related Data Home Medications Medication Instructions Recorded Confirmed albuterol sulfate 2 puff PO Q4-6H PRN 01/01/20 06/21/20 clopidogrel 75 mg PO DAILY 01/01/20 06/21/20 glimepiride 1 mg PO DAILY 01/01/20 06/21/20 atorvastatin 80 mg tablet 80 mg PO DAILY 02/12/20 06/21/20 aspirin 81 mg PO DAILY 05/02/20 06/21/20 finasteride 5 mg PO DAILY 05/02/20 06/21/20 melatonin 3 mg PO BEDTIME PRN 05/02/20 06/21/20 multivitamin [Daily-Casa] 1 tab PO DAILY 05/02/20 06/21/20 tamsulosin 0.4 mg PO BEDTIME 05/02/20 06/21/20 amlodipine 1 tab PO DAILY 06/04/20 06/21/20 gabapentin 1 cap PO DAILY 06/04/20 06/21/20 lactulose 15 ml PO DAILY 06/04/20 06/21/20 acetaminophen 325 mg capsule 325 mg PO QID PRN 06/21/20 06/21/20 calcium carbonate 600 mg calcium 600 mg PO DAILY 06/21/20 06/21/20 (1,500 mg) tablet Previous Rx's Medication Instructions Recorded Lantus Solostar U-100 Insulin 10 unit SUBCUT BEDTIME #0 ml 06/11/20 oxycodone 5 mg PO Q4H PRN #26 tab 06/11/20 Allergies Allergy/AdvReac Type Severity Reaction Status Date / Time No Known Allergies Allergy Verified 06/04/20 11:24 [No Known Allergies*] Review of Systems Review of Systems: Constitutional : No Weight loss, No Fever, No Chills ENT/Mouth : No sore throat, No Rhinorrhea Eyes: No Eye Pain, No Swelling Cardiovascular : No Chest Pain, no palpitations Respiratory : No Cough, No Sputum, no shortness of breath Gastrointestinal : no Nausea, No Vomiting, No Diarrhea, No abdominal Pain, no black stools Genitourinary : No Dysuria, No Urinary Frequency Musculoskeletal : No joint pain, No Myalgias, No Joint Swelling Skin : +Skin Lesions, No rash Neuro : No Weakness, No Numbness, No Dizziness, No Headache Psych : No Anxiety/Panic, No Depression Heme/Lymph: No Bruising, No Lymphadenopathy Endocrine : No Polyuria, No Polydipsia All other systems reviewed and are negative [facility] Past Medical History Medical History Arthritis Asthma Candidiasis of penis Cholelithiasis Diabetes mellitus, type 2 Diverticulosis Gaytan catheter in place Hiatal hernia Hydronephrosis Hyperlipidemia Hypertension Sepsis Severe sepsis Wheelchair dependence Surgical History H/O hernia repair Social History Social History Household Members: Other Housing: Apartment Alcohol intake: never Smoking Status: Never smoker Smoked in Last 30 Days: No Second Hand Smoke Exposure: No Use of substances other than those prescribed or required for medical reasons: No Advance Directives: No Advance Directives Information Provided: No service: No Current occupational status: retired Physical Exam Vital Signs: Vital Signs: Last Vital Signs Temp 98.4 F 07/19/20 15:43 Pulse 87 07/19/20 15:43 Resp 16 07/19/20 15:43 BP 129/63 07/19/20 15:43 Pulse Ox 96 07/19/20 15:43 Body Mass Index 26.0 Appearance: Alert. Oriented X3. No acute distress. Eyes: Pupils equal, round and reactive to light. ENT: Pharynx normal. Neck: Normal inspection. Neck supple. CVS: Normal heart rate and rhythm. Pulses normal. Respiratory: No respiratory distress. Breath sounds normal. Abdomen: Soft and nontender. Bowel sounds are present, no mass palpable, no CVA tenderness Skin: Skin warm and dry. Normal skin color. Normal skin turgor. Extremities: No lower extremity edema. Left BKA with healthy stump right foot with superficial pressure ulcers without any significant pus discharge or surrounding erythema Neuro: Oriented X 3. No motor deficit. No sensory deficit. MDM - Extremity (Nontraumatic) MDM Narrative Medical decision making narrative: Patient post of left BKA with healing stump sent here for missing appointment with his PCP at this time wound looks healthy no signs of infection labs are stable discharge patient back to nursing Lab Data Attestation: I reviewed the patient's lab results. Result diagrams: 07/19/20 16:59 07/19/20 16:59 Labs: Lab Results 07/19/20 07/19/20 Range/Units 16:59 16:59 WBC 6.7 (4.8-10.8) X10*3/uL RBC 3.12 L (4.60-5.80) X10*6/uL Hgb 9.0 L (14.0-18.0) g/dl Hct 28.4 L (42-52) % MCV 91.0 (80-98) fL MCH 28.8 (27.0-33.0) pg MCHC 31.7 (31.0-36.0) g/dl RDW 15.8 (11.0-16.0) % Plt Count 263 (160-400) X10*3/uL MPV 8.4 L (9.4-12.4) fL Immature Gran % (Auto) 0.1 (0.0-0.4) % Neut % (Auto) 67.8 (45-73) % Lymph % (Auto) 16.9 L (20-40) % [place] % (Auto) 7.3 (2-11) % Eos % (Auto) 7.3 H (0-4) % Baso % (Auto) 0.6 (0-2) % Lymph # (Auto) 1.1 L (1.2-4.9) X10*3/uL [place] # (Auto) 0.5 (0.1-1.2) X10*3/uL Eos # (Auto) 0.5 H (0.0-0.4) X10*3/uL Baso # (Auto) 0.0 (0.0-0.2) X10*3/uL Abs Immat Gran (auto) 0.01 (0.00-0.03) X10*3/uL Absolute Neuts (auto) 4.5 (2.0-8.3) X10*3/uL Absolute Nucleated RBC 0.000 (0.0-0.012) X10*3/uL Nucleated RBC % (auto) 0.0 (0.0-0.2) /100WBC Sodium 138 (135-145) mmol/L Potassium 5.2 H (3.3-5.1) mmol/L Chloride 101 (96-108) mmol/L Carbon Dioxide 30 H (22-29) mmol/L Anion Gap 12 (12-20) BUN 19 H (9-16) mg/dL Creatinine 0.83 (0.5-1.4) mg/dL Estim Creat Clear Calc 58.4 Estimated GFR > 60 Random Glucose 196 H D (60-115) mg/dL Calcium 9.2 D (8.4-10.2) mg/dL Discharge Plan Discharge Clinical Impression: Encounter for postoperative wound care Patient Disposition: Home, Self-Care Instructions: Chronic Wounds (ED) Additional Instructions: Local care as advised for healing wound postop At this time there is no sign of deeper infection Prescriptions: No Action amlodipine 5 mg tablet 1 tab PO DAILY RF: 0 gabapentin 100 mg capsule 1 cap PO DAILY RF: 0 lactulose 10 gram/15 mL solution 15 ml PO DAILY RF: 0 Lantus Solostar U-100 Insulin 100 unit/mL (3 mL) insulin pen 10 unit subcut BEDTIME Qty: 0 RF: 0 oxycodone 5 mg tablet 5 mg PO Q4H PRN (Reason: pain (scale score 7-10)) Qty: 26 RF: 0 clopidogrel 75 mg tablet 75 mg PO DAILY RF: 0 Hold Instructions: Resume on 01/09/20. Hold Plavix until Wednesday, if patient still has hematuria discussed with PCP for further use. glimepiride 1 mg tablet 1 mg PO DAILY RF: 0 albuterol sulfate 90 mcg/actuation HFA aerosol inhaler 2 puff PO Q4-6H PRN (Reason: Shortness Of Breath Or Wheezing) RF: 0 multivitamin [Daily-Casa] Tablet 1 tab PO DAILY RF: 0 aspirin 81 mg Tablet,Delayed Release (Dr/Ec) 81 mg PO DAILY RF: 0 tamsulosin 0.4 mg Capsule 0.4 mg PO BEDTIME RF: 0 finasteride 5 mg Tablet 5 mg PO DAILY RF: 0 melatonin 3 mg Capsule 3 mg PO BEDTIME PRN (Reason: BEDTIME) RF: 0 atorvastatin 80 mg tablet 80 mg PO DAILY RF: 0 acetaminophen 325 mg capsule 325 mg PO QID PRNRF: 0 calcium carbonate 600 mg calcium (1,500 mg) tablet 600 mg PO DAILY RF: 0
[2020-07-19 17:02] LABS: MANUAL DIFF FLAG NO
[2020-07-19 17:07] LABS: Basophils Percent Auto 0.6 % (0-2); Eosinophils Absolute Auto 0.5 X10*3/uL (0.0-0.4); Eosinophils Percent Auto 7.3 % (0-4); Hematocrit 28.4 % (42-52); Imm Gran Abs Auto 0.01 X10*3/uL (0.00-0.03); Imm Gran Pct Auto 0.1 % (0.0-0.4); Lymphocytes Absolute Auto 1.1 X10*3/uL (1.2-4.9); Lymphocytes Percent Auto 16.9 % (20-40); Mean Corpuscular HGB Conc 31.7 g/dl (31.0-36.0); Mean Corpuscular Hemoglobin 28.8 pg (27.0-33.0); Mean Platelet Volume 8.4 fL (9.4-12.4); Monocytes Absolute Auto 0.5 X10*3/uL (0.1-1.2); Monocytes Percent Auto 7.3 % (2-11); Neutrophils Absolute Auto 4.5 X10*3/uL (2.0-8.3); Neutrophils Percent Auto 67.8 % (45-73); Platelet Count 263 X10*3/uL (160-400); Red Blood Count 3.12 X10*6/uL (4.60-5.80); Red Cell Distribution Width 15.8 % (11.0-16.0); White Blood Count 6.7 X10*3/uL (4.8-10.8)
[2020-07-19 17:43] LABS: Anion Gap 12 (12-20); Blood Urea Nitrogen 19 mg/dL (9-16); Calcium 9.2 mg/dL (8.4-10.2); Carbon Dioxide 30 mmol/L (22-29); Chloride 101 mmol/L (96-108); Creatinine Clr Calc Pharmacy 58.4; Estimated Glomerular Filt Rate > 60; Glucose Random 196 mg/dL (60-115); Potassium 5.2 mmol/L (3.3-5.1); Sodium 138 mmol/L (135-145)
== END 2020-07-19 19:05 | disposition home or self-care (01) ==
PROVIDERS: Emergency Provider Internal Medicine; PCP Internal Medicine Geriatric Medicine
DX: Z48.00 Encounter for change or removal of nonsurgical wound dressing (principal); Z79.82 Long term (current) use of aspirin; Z79.899 Other long term (current) drug therapy
CPT/HCPCS: 36415; 80048; 85025; 99283; 99284

== ENCOUNTER → 2020-08-02 11:05 | Outpatient (BNVA) | payer MEDICARE, SELFPAY | PROVIDERS: PCP Internal Medicine Geriatric Medicine; Referring Provider Internal Medicine Geriatric Medicine; Visit Provider Surgery | DX: Z89.512 Acquired absence of left leg below knee (principal) | CPT/HCPCS: 99212 ==

== ENCOUNTER 2020-08-03 09:14 | Inpatient (IN) | payer MEDICARE, SELFPAY ==
[2020-08-03] VITALS (7 sets, daily range): BP systolic 107–141; BP diastolic 59–68; PULSE 80–93; RESP 14–20; TEMP 36.4–36.9; O2SAT 96–100; BMI 22.9
--- NOTE | ~2020-08-03 | CT_ITS ---
EXAMINATION: CT HEAD WITHOUT CONTRAST (STROKE PROTOCOL) CLINICAL INFORMATION: Stroke protocol. Dizziness. Visual field deficit. COMPARISON: Head CT from 02/01/2019 TECHNIQUE: Contiguous axial imaging was performed from the skull base to vertex without intravenous administration of contrast. This CT examination was performed using dose optimization techniques as appropriate, variously including the following: *Automated exposure control *Adjustment of mA and/or kV according to patient size (this includes techniques or standardized protocols for targeted exams where dose is matched to indication/reason for exam; i.e. extremities or head) *Use of iterative reconstruction technique DLP: 652 mGy-cm FINDINGS: No intracranial hemorrhage, extra axial fluid collection, focal mass effect or midline shift. Atherosclerotic calcification of proximal intradural segments of vertebral arteries and cavernous carotid arteries. No evidence of a dense cerebral artery sign. The chaney-white matter differentiation is maintained. Old small lacunar infarcts in bilateral gangliocapsular regions. Also, old small infarct is present within the centrum semiovale of the left frontal lobe. No evidence of an acute major vascular territory infarction. The calvarium is intact. The visualized paranasal sinuses, mastoid air cells and middle ear cavities are well aerated. Temporomandibular joints are unremarkable. The visualized orbits are intact. CT/CT head for stroke IMPRESSION: No acute intracranial pathology compared to 02/01/2019. This critical result was discussed with Dr. Interiano at 9:40 AM hours on 08/03/2020. It was ascertained that the content and urgency of the report was understood at the time of direct communication.
--- NOTE | ~2020-08-03 | MR_ITS ---
MRI OF THE BRAIN WITHOUT IV CONTRAST INDICATION: Dizziness/vision loss. COMPARISON: Head CT and head and neck CTA 08/03/2020. TECHNIQUE: Multiplanar multisequence MR imaging of the brain was obtained without IV contrast. FINDINGS: There is no hydrocephalus, extra-axial surface collection, or herniation. There is global cerebral volume loss, there is mild chronic microangiopathy, and there is a chronic infarct within the left frontal lobe. The major flow voids at the skull base are preserved. There is no acute infarct on diffusion-weighted imaging. There is no intracranial hemorrhage on the gradient recalled echo acquisition. Small foci of chronic hemosiderin staining within the cerebral hemispheres bilaterally. The midline structures are normal. The cerebellar tonsils are normally positioned. The cerebellum and brainstem are normal. The craniocervical junction is normal. Osseous marrow signal intensity is homogenous. The visualized soft tissues are unremarkable. MR/MR head/brain wo con IMPRESSION: - No acute intracranial findings. No acute infarcts. - There is global cerebral volume loss, there is mild chronic microangiopathy, and there is a chronic infarct within the left frontal lobe. - Small foci of chronic hemosiderin staining within the cerebral hemispheres bilaterally.
--- NOTE | ~2020-08-03 | CT_ITS ---
EXAMINATION: CT ANGIOGRAM NECK WITH CONTRAST CT ANGIOGRAM BRAIN WITH CONTRAST CLINICAL INFORMATION: Stroke. COMPARISON: Head CT performed earlier the same day. TECHNIQUE: Test bolus sequences followed by intravenous administration 70 mL of Omnipaque 350. Helical imaging was performed in the axial plane from the thoracic inlet to the skull vertex. Delayed postcontrast imaging of the head was also performed. The data was processed at the instructional technologist workstation for generation of MIP sequences. Angled MIPs and volume rendered reformatted images were also generated at an offline 3D workstation under concurrent supervision. Stenoses are assessed in accordance with NASCET criteria unless otherwise indicated. This CT examination was performed using dose optimization techniques as appropriate, variously including the following: *Automated exposure control *Adjustment of mA and/or kV according to patient size (this includes techniques or standardized protocols for targeted exams where dose is matched to indication/reason for exam; i.e. extremities or head) *Use of iterative reconstruction technique FINDINGS: BRAIN: There is a small infarct of indeterminate age within the left frontal centrum semiovale and left middle frontal gyrus that can be more definitively assessed with MRI. There is no intracranial hemorrhage, hydrocephalus, extra-axial surface collection, midline shift, or other herniation pattern. Mejias to white matter differentiation is diffusely maintained without evidence of an evolved acute territorial infarct. The basilar cisterns are preserved. No significant soft tissue abnormality. No acute osseous abnormality. The paranasal sinuses and the mastoid air cells are well aerated.] CERVICAL SOFT TISSUES AND LUNG APICES: There is advanced multilevel cervical spondylosis. Advanced spondylitic changes result in possible severe central canal stenosis and mass effect on the cervical spinal cord at the C4-C5, C5-C6, and C6-C7 levels. If there is cervical myelopathy clinically, this can be further assessed with a dedicated cervical spine MRI. NECK CTA: Left common carotid artery arises from the brachiocephalic artery, an anatomic variant. Proximal arch vessels are non-stenotic. The vertebral arteries are codominant. Atherosclerotic calcification involving the right vertebral artery origin without significant stenosis. Both vertebral arteries are widely patent throughout their extracranial cervical course. Both common carotid arteries are normal in course and caliber.] There is atherosclerotic disease involving the carotid bifurcations bilaterally resulting in less than 50% stenoses of the proximal internal carotid arteries on both sides by NASCET criteria. BRAIN CTA: [Extensive atherosclerotic disease resulting in a severe stenosis of the proximal left intradural vertebral artery. Extensive atherosclerotic disease throughout the carotid siphons bilaterally resulting in a moderate stenosis of the distal left cavernous/paraclinoid ICA segment. No aneurysm. Timing of the contrast bolus allows assessment of the major dural venous sinuses, which all opacify normally] CT/CT angio head neck stroke IMPRESSION: - There is a small infarct of indeterminate age within the left frontal centrum semiovale and left middle frontal gyrus that can be more definitively assessed with MRI. No large acute territorial infarcts and no intracranial hemorrhage. - No acute arterial occlusions intracranially. - Extensive atherosclerotic disease resulting in a severe stenosis of the proximal left intradural vertebral artery. - Extensive atherosclerotic disease throughout the carotid siphons bilaterally resulting in a moderate stenosis of the distal left cavernous/paraclinoid ICA segment. - There is atherosclerotic disease involving the carotid bifurcations bilaterally resulting in less than 50% stenoses of the proximal internal carotid arteries on both sides by NASCET criteria. - There is advanced multilevel cervical spondylosis. Advanced spondylitic changes result in possible severe central canal stenosis and mass effect on the cervical spinal cord at the C4-C5, C5-C6, and C6-C7 levels. If there is cervical myelopathy clinically, this can be further assessed with a dedicated cervical spine MRI. Stroke protocol discussed with Dr. Interiano at 12:46 PM on 08/03/2020.
--- NOTE | ~2020-08-03 | XR_ITS ---
EXAMINATION: XR SHOULDER, LEFT CLINICAL INFORMATION: Left shoulder pain. COMPARISON: Left shoulder radiographs dated February 01, 2019. TECHNIQUE: Portable frontal radiograph with shoulder in internal rotation. Lateral portable radiograph. FINDINGS: Examination is limited secondary to patient positioning. Within this limitation, no definable fracture line is appreciated. The humeral head appears approximated on the glenoid without anterior or posterior translation on the scapular Y/lateral view. There is narrowing of the acromiohumeral interval which may reflect sequelae rotator cuff pathology. The acromioclavicular joint is approximated with mild hypertrophic change. Visualized ribs are intact. Low lung volumes. No consolidation. XR/XR shoulder LT min 2V IMPRESSION: Left shoulder: No acute fracture or malalignment on this limited examination. Narrowing of the acromiohumeral interval which may reflect sequelae of rotator cuff pathology. Mild AC joint arthrosis.
--- NOTE | ~2020-08-03 | XR_ITS ---
EXAMINATION: XR CHEST CLINICAL INFORMATION: Stroke. COMPARISON: Chest 3 09/04/2020 TECHNIQUE: Frontal view of the chest was obtained. FINDINGS: The lungs are hypoexpanded finding on glass attenuation changes in both lungs similar to previous study. No dense consolidation, pleural effusion or pneumothorax. Heart size and vascularity is normal. No gross bony abnormality. XR/XR chest 1V IMPRESSION: Subtle finding groundglass opacities, similar to previous study 06/04/2020. There is no confluent infiltrate or pleural effusion.
--- NOTE | 2020-08-03 09:23 | ECG_ITS ---
Test Reason : STROKE Blood Pressure : / mmHG Vent. Rate : 088 BPM Atrial Rate : 088 BPM P-R Int : 150 ms QRS Dur : 080 ms QT Int : 354 ms P-R-T Axes : 045 013 053 degrees QTc Int : 428 ms Normal sinus rhythm Normal ECG When compared with ECG of 04-JUN-2020 12:03, No significant change was found Referred By: Maddie Interiano Electronically Signed By:HAYDEN FERREIRA
--- NOTE | 2020-08-03 09:29 | ED.NEUROSD ---
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 This is a 74-year-old male with history of diabetes and peripheral vascular disease, patient last known well was last night before he went to bed, in the morning patient was complaining to the nurse that he has been having dizziness, and visual problem that the patient experienced after he woke this morning, otherwise patient declined any motor and sensory deficit. Patient claimed that he did have normal vision. Patient went to CT scan of the head, patient was re-evaluated in the room now patient claimed that his vision is back to normal and no more dizziness. Related Data Home Medications Medication Instructions Recorded Confirmed albuterol sulfate 2 puff PO Q4-6H PRN 01/01/20 08/03/20 clopidogrel 75 mg PO DAILY 01/01/20 08/03/20 glimepiride 1 mg PO DAILY 01/01/20 08/03/20 atorvastatin 80 mg tablet 80 mg PO DAILY 02/12/20 08/03/20 aspirin 81 mg PO DAILY 05/02/20 08/03/20 finasteride 5 mg PO DAILY 05/02/20 08/03/20 melatonin 3 mg PO BEDTIME PRN 05/02/20 08/03/20 multivitamin [Daily-Casa] 1 tab PO DAILY 05/02/20 08/03/20 tamsulosin 0.4 mg PO BEDTIME 05/02/20 08/03/20 amlodipine 1 tab PO DAILY 06/04/20 08/03/20 gabapentin 1 cap PO DAILY 06/04/20 08/03/20 lactulose 15 ml PO DAILY 06/04/20 08/03/20 acetaminophen 325 mg capsule 650 mg PO QID PRN 06/21/20 08/03/20 calcium carbonate 600 mg calcium 1,500 mg PO DAILY 06/21/20 08/03/20 (1,500 mg) tablet ascorbic acid (vitamin C) 500 mg PO DAILY 08/03/20 08/03/20 ferrous sulfate 325 mg PO DAILY 08/03/20 08/03/20 omeprazole 20 mg PO DAILY 08/03/20 08/03/20 Previous Rx's Medication Instructions Recorded Lantus Solostar U-100 Insulin 10 unit SUBCUT BEDTIME #0 ml 06/11/20 oxycodone 5 mg PO Q4H PRN #26 tab 06/11/20 Allergies Allergy/AdvReac Type Severity Reaction Status Date / Time No Known Allergies Allergy Verified 06/04/20 11:24 [No Known Allergies*] Review of Systems Review of Systems: All other systems are reviewed and are negative Constitutional: Reports as per HPI and Reports no additional constitutional complaints Eyes: Reports as per HPI and Reports no additional eye complaints Reports system reviewed and no additional complaints, except as documented Cardiovascular: Reports as per HPI and Reports no additional cardiovascular complaints Respiratory: Reports as per HPI and Reports no additional respiratory complaints Gastrointestinal: Reports as per HPI and Reports no additional gastrointestinal complaints Genitourinary: Reports no additional female genitourinary complaints Musculoskeletal: Reports no additional musculoskeletal complaints Skin/Breast: Reports system reviewed and no additional complaints, except as docu Psychiatric: Reports no additional psychiatric complaints Endocrine: Reports no additional endocrine complaints Hematologic/Lymphatic: Reports no additional hematologic/lymphatic complaints Allergic/Immunologic: Reports no additional allergic/immunologic complaints Reports system reviewed and no additional complaints, except as documented and Reports Abnormal speech present [facility] Past Medical History Medical History Arthritis Asthma Candidiasis of penis Cholelithiasis Diabetes mellitus, type 2 Diverticulosis Gaytan catheter in place Hiatal hernia Hydronephrosis Hyperlipidemia Hypertension Sepsis Severe sepsis Wheelchair dependence Surgical History H/O hernia repair Social History Social History Household Members: Other 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 Blood pressure normal. Heart rate normal. Respiration rate normal. Temperature normal. Oxygen saturation normal. Appearance: Alert. Oriented X3. No acute distress. Head: Normal external exam. Normocephalic. Atraumatic. No Carrillo signs noted. No raccoon eyes noted Eyes: PERRLA. EOMI. Conjunctiva and sclera normal. Eyelids normal. Right eye visual acuity 20/200 left eye 20/70 ENT: TM's Normal. Pharynx normal. Uvula midline. Moist mucous membranes. No trismus noted. No drooling noted. No muffled voice noted. Neck: Normal inspection. Neck supple. FROM. No adenopathy. Thyroid Normal. No meningeal signs. No neck mass noted. CVS: Normal heart rate and rhythm. Heart sound normal. No murmurs noted. Pulses normal throughout. Respiratory: No respiratory distress. Painless inspiration. Breath sounds normal. No wheezes/rales/rhonchi noted. Chest nontender. No accessory muscle usage noted or decreased air movement noted. Abdomen: Soft and nontender. Bowel sounds normal in all 4 quadrants. No distention noted. No organomegaly noted. No visible injury noted. Back: No CVA tenderness. Full range of motion noted. Skin: Skin warm and dry. Normal skin color. Normal skin turgor. No rashes/lesions/lacerations noted. Extremities: No lower extremity edema. Status post left BKA Neuro: Oriented X 3. No motor deficit. No sensory deficit. Reflexes normal. Course Course Course Narrative: Assessment and plan. 74-year-old male came in from [facility] initially with dizziness and visual loss. As patient in the emergency department start improve, CT/CTA head and neck was unremarkable for acute occlusion or acute stroke, patient is not a candidate for tPA for resolution of all his symptoms. Will admit for further neurological assessment. MDM - Neuro Symptoms/Deficit Lab Data Attestation: I reviewed the patient's lab results. Result diagrams: 08/03/20 09:50 08/03/20 09:50 Labs: Lab Results 08/03/20 08/03/20 08/03/20 Range/Units 09:35 09:50 09:50 WBC 5.8 (4.8-10.8) X10*3/uL RBC 3.32 L (4.60-5.80) X10*6/uL Hgb 9.6 L (14.0-18.0) g/dl Hct 30.1 L (42-52) % MCV 90.7 (80-98) fL MCH 28.9 (27.0-33.0) pg MCHC 31.9 (31.0-36.0) g/dl RDW 15.3 (11.0-16.0) % Plt Count 310 (160-400) X10*3/uL MPV 8.5 L (9.4-12.4) fL Immature Gran % (Auto) 0.2 (0.0-0.4) % Neut % (Auto) 68.3 (45-73) % Lymph % (Auto) 15.9 L (20-40) % [place] % (Auto) 6.1 (2-11) % Eos % (Auto) 8.8 H (0-4) % Baso % (Auto) 0.7 (0-2) % Lymph # (Auto) 0.9 L (1.2-4.9) X10*3/uL [place] # (Auto) 0.4 (0.1-1.2) X10*3/uL Eos # (Auto) 0.5 H (0.0-0.4) X10*3/uL Baso # (Auto) 0.0 (0.0-0.2) X10*3/uL Abs Immat Gran (auto) 0.01 (0.00-0.03) X10*3/uL Absolute Neuts (auto) 3.9 (2.0-8.3) X10*3/uL Absolute Nucleated RBC 0.000 (0.0-0.012) X10*3/uL Nucleated RBC % (auto) 0.0 (0.0-0.2) /100WBC PT 12.4 (10.8-13.0) SEC INR 1.0 (0.9-1.1) APTT 36.9 (24.1-38.0) SEC Sodium (135-145) mmol/L Potassium (3.3-5.1) mmol/L Chloride (96-108) mmol/L Carbon Dioxide (22-29) mmol/L Anion Gap (12-20) BUN (9-16) mg/dL Creatinine (0.5-1.4) mg/dL Estim Creat Clear Calc Estimated GFR POC Glucose 98 (60-115) mg/dL Random Glucose (60-115) mg/dL Calcium (8.4-10.2) mg/dL Total Creatine Kinase (38-174) U/L Troponin I High Sens (<3.5-35.0) ng/L Urine Color Urine Appearance Urine pH (5.0-8.0) Ur Specific [place] (1.005-1.025) Urine Protein (NEG-TRACE) MG/DL Urine Glucose (UA) (NEG) MG/DL Urine Ketones (NEG) MG/DL Urine Blood (NEG) Urine Nitrite (NEG) Ur Leukocyte Esterase (NEG) Urine RBC (0) /HPF Urine WBC (0-4) /HPF Ur Squamous Epith Cells /LPF Urine Bacteria /LPF 08/03/20 08/03/20 08/03/20 Range/Units 09:50 09:50 11:01 WBC (4.8-10.8) X10*3/uL RBC (4.60-5.80) X10*6/uL Hgb (14.0-18.0) g/dl Hct (42-52) % MCV (80-98) fL MCH (27.0-33.0) pg MCHC (31.0-36.0) g/dl RDW (11.0-16.0) % Plt Count (160-400) X10*3/uL MPV (9.4-12.4) fL Immature Gran % (Auto) (0.0-0.4) % Neut % (Auto) (45-73) % Lymph % (Auto) (20-40) % [place] % (Auto) (2-11) % Eos % (Auto) (0-4) % Baso % (Auto) (0-2) % Lymph # (Auto) (1.2-4.9) X10*3/uL [place] # (Auto) (0.1-1.2) X10*3/uL Eos # (Auto) (0.0-0.4) X10*3/uL Baso # (Auto) (0.0-0.2) X10*3/uL Abs Immat Gran (auto) (0.00-0.03) X10*3/uL Absolute Neuts (auto) (2.0-8.3) X10*3/uL Absolute Nucleated RBC (0.0-0.012) X10*3/uL Nucleated RBC % (auto) (0.0-0.2) /100WBC PT (10.8-13.0) SEC INR (0.9-1.1) APTT (24.1-38.0) SEC Sodium 139 (135-145) mmol/L Potassium 4.4 (3.3-5.1) mmol/L Chloride 103 (96-108) mmol/L Carbon Dioxide 28 (22-29) mmol/L Anion Gap 12 (12-20) BUN 23 H (9-16) mg/dL Creatinine 0.96 (0.5-1.4) mg/dL Estim Creat Clear Calc 56.9 Estimated GFR > 60 POC Glucose (60-115) mg/dL Random Glucose 107 D (60-115) mg/dL Calcium 8.6 D (8.4-10.2) mg/dL Total Creatine Kinase 27 L (38-174) U/L Troponin I High Sens 7.5 (<3.5-35.0) ng/L Urine Color YELLOW Urine Appearance CLOUDY Urine pH 5.5 (5.0-8.0) Ur Specific [place] 1.025 (1.005-1.025) Urine Protein 1+ H (NEG-TRACE) MG/DL Urine Glucose (UA) NEG (NEG) MG/DL Urine Ketones 5 (NEG) MG/DL Urine Blood 3+ H (NEG) Urine Nitrite NEG (NEG) Ur Leukocyte Esterase 1+ H (NEG) Urine RBC 30-49 H (0) /HPF Urine WBC 10-14 H (0-4) /HPF Ur Squamous Epith Cells NONE /LPF Urine Bacteria 2+ /LPF Imaging Data CT scan - head: Radiologist's impression: No acute pathology. Chest x-ray: Radiologist's impression: No acute pathology. CTA head and neck: Radiologist's impression: There is a small infarct of indeterminate age within the left frontal centrum semiovale and left middle frontal gyrus that can be more definitively assessed with MRI. No large acute territorial infarcts and no intracranial hemorrhage. - No acute arterial occlusions intracranially. - Extensive atherosclerotic disease resulting in a severe stenosis of the proximal left intradural vertebral artery. - Extensive atherosclerotic disease throughout the carotid siphons bilaterally resulting in a moderate stenosis of the distal left cavernous/paraclinoid ICA segment. - There is atherosclerotic disease involving the carotid bifurcations bilaterally resulting in less than 50% stenoses of the proximal internal carotid arteries on both sides by NASCET criteria. - There is advanced multilevel cervical spondylosis. Advanced spondylitic changes result in possible severe central canal stenosis and mass effect on the cervical spinal cord at the C4-C5, C5-C6, and C6-C7 levels. If there is cervical myelopathy clinically, this can be further assessed with a dedicated cervical spine MRI. NIH Stroke Scale Level of Consciousness: Alert Level of Consciousness Questions: Answers both questions correctly Level of Consciousness Commands: Performs both tasks correctly Best Gaze: Normal Visual: Partial hemianopia Facial Palsy: Normal Motor Arm (Right): No drift Motor Arm (Left): No drift Motor Leg (Right): No drift Motor Leg (Left): No drift Limb Ataxia: Absent Sensory: Normal Best Language: No aphasia Dysarthia: Normal Extinction and Inattention: No abnormality Score: 1 Discharge Plan Discharge Clinical Impression: Brain TIA Patient Disposition: Admitted As Inpatient
[2020-08-03 09:44] LABS: Glucose, Whole Blood 98 mg/dL (60-115)
[2020-08-03 10:03] LABS: Basophils Percent Auto 0.7 % (0-2); Eosinophils Absolute Auto 0.5 X10*3/uL (0.0-0.4); Eosinophils Percent Auto 8.8 % (0-4); Hematocrit 30.1 % (42-52); Hemoglobin 9.6 g/dl (14.0-18.0); Imm Gran Abs Auto 0.01 X10*3/uL (0.00-0.03); Imm Gran Pct Auto 0.2 % (0.0-0.4); Lymphocytes Absolute Auto 0.9 X10*3/uL (1.2-4.9); Lymphocytes Percent Auto 15.9 % (20-40); MANUAL DIFF FLAG NO; Mean Corpuscular HGB Conc 31.9 g/dl (31.0-36.0); Mean Corpuscular Hemoglobin 28.9 pg (27.0-33.0); Mean Corpuscular Volume 90.7 fL (80-98); Mean Platelet Volume 8.5 fL (9.4-12.4); Monocytes Absolute Auto 0.4 X10*3/uL (0.1-1.2); Monocytes Percent Auto 6.1 % (2-11); Neutrophils Absolute Auto 3.9 X10*3/uL (2.0-8.3); Neutrophils Percent Auto 68.3 % (45-73); Platelet Count 310 X10*3/uL (160-400); Red Blood Count 3.32 X10*6/uL (4.60-5.80); Red Cell Distribution Width 15.3 % (11.0-16.0); White Blood Count 5.8 X10*3/uL (4.8-10.8)
[2020-08-03 10:08] LABS: Prothrombin Time 12.4 SEC (10.8-13.0)
[2020-08-03 10:11] LABS: Partial Thromboplastin Time 36.9 SEC (24.1-38.0); Stroke Lab Use COMPLETE
[2020-08-03 10:31] LABS: Anion Gap 12 (12-20); Blood Urea Nitrogen 23 mg/dL (9-16); Calcium 8.6 mg/dL (8.4-10.2); Carbon Dioxide 28 mmol/L (22-29); Chloride 103 mmol/L (96-108); Creatinine Clr Calc Pharmacy 56.9; Estimated Glomerular Filt Rate > 60; Glucose Random 107 mg/dL (60-115); Potassium 4.4 mmol/L (3.3-5.1); Sodium 139 mmol/L (135-145)
[2020-08-03 10:38] LABS: Troponin-I High Sensitivity 7.5 ng/L (<3.5-35.0)
[2020-08-03] MEDS: 0.9 % Sodium Chloride 1,000 ML 999 ML IVCONT (10:41)
[2020-08-03 11:06] LABS: Glucose Urine UA NEG (NEG); Leukocyte Esterase Urine 1+ (NEG); Nitrite Urine NEG (NEG); PH 5.5 (5.0-8.0); Specific Gravity - Urine 1.025 (1.005-1.025); UACC Culture Trigger YES; Urine Blood 3+ (NEG); Urine Ketones 5 MG/DL (NEG); Urine Protein 1+ MG/DL (NEG-TRACE)
[2020-08-03 11:07] LABS: Appearance Urine CLOUDY; Color Urine YELLOW
[2020-08-03 11:19] LABS: Bacteria Urine 2+ /LPF; RBC Urine 30-49 /HPF (0)
[2020-08-03] MEDS: iohexoL 350 MG/ML 100 ML INFUS..BTL IV (12:28)
--- NOTE | 2020-08-03 13:15 | MHC.STROKE ---
Addendum entered by Yanet Rendon RN 08/05/20 11:56: I MET WITH THE PATIENT USING AN LAP WELDER, WE REVIEWED THE MRI RESULTS, HIS SYMPTOMS AND THE VERTEBRAL STENOSIS. HE IS [employer] AND HE IS IN [facility] AND BEING MANAGED THERE. I ANSWERED HIS QUESTIONS, I SPOKE WITH THE HOSPITALIST PAROLE DIRECTOR AND IT IS LIKELY THAT HE WILL BE DISCHARGED BACK TO THE SNF TODAY. Original Note: 0912 EMS PRE-NOTIFIED FOR A STROKE ALERT , DIZZINESS AND VISUAL FIELD CUT, VISUAL DISTURBANCE, NIHSS = 1. LAST KNOWN WELL 08/02/20 AT 2300, WOKE WITH SYMPTOMS TODAY. OUT OF THE WINDOW FOR TPA (ALTEPLASE). DIRECT TO CT HEAD AND CTA H/N. NO BLEED, NO LVO. PRIOR STROKES IDENTIFIED AND LEFT FRONTAL UNDETERMINED AGE. SEE DR FLORES'S NOTE. MULTIPLE STROKE RISK FACTORS, ON ASPIRIN AND PLAVIX. PASSED SWALLOW SCREEN. I WILL CONTINUE TO FOLLOW.
--- NOTE | 2020-08-03 14:50 | PC.NURSE ---
UPDATE GIVEN TO [facility] RN, PLAN TO ADMIT. PT HAS BEEN REPEATEDLY REMINDED OF HIS ADMISSION, OFFERS NO COMPLAINTS AT THIS TIME. DENIES ANY VISION DISTURBANCES, PAIN. PT HAS REMAINED ALERT SINCE ARRIVAL, SPEAKING IN FULL SENTENCES. RESP EVEN, NONLABOURED. PT ATE LUNCH WITH NO ISSUE.
--- NOTE | 2020-08-03 15:13 | P.HPHOSP_ITS ---
History of Present Illness Date of Service: 08/03/20 Chief Complaint: Dizziness, vision loss This is a 74-year-old Australian-speaking male who presents to the emergency department after an episode of vision loss. When patient woke up this morning he reports feeling dizzy and states that he was unable to see out of either eye. Everything was black. He was transported to the hospital for evaluation and underwent head and neck CTA. Shortly after finishing his CT scan his symptoms began to improve and have since completely resolved. Imaging showed small infarct of indeterminate age within the left centrum semiovale and left middle frontal gyrus, severe stenosis of the proximal vertebral artery, myra ateral internal carotid stenosis less than 50% and severe canal stenosis and mass effect on the cervical spinal cord at C4-C5, C5-C6, and C6-C7 levels. Lab work was significant for anemia which appears to be chronic and is at the patient's baseline. Currently patient complains only of left arm pain which he reports is new. 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 Candidiasis of penis Cholelithiasis Diabetes mellitus, type 2 Diverticulosis Al catheter in place Hiatal hernia Hydronephrosis Hyperlipidemia Hypertension PVD (peripheral vascular disease) Sepsis Severe sepsis Wheelchair dependence Functional capacity: wheelchair bound Family history: reviewed and not pertinent Surgical History (Updated 08/03/20 @ 15:19 by FLORENTIN Sánchez) H/O hernia repair Status post below-knee amputation of left lower extremity Social History Household Members: Other 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 Housing: Apartment Alcohol intake: never Smoking Status: Never smoker Second Hand Smoke Exposure: No Use of substances other than those prescribed or required for medical reasons: No Advance Directives: No Advance Directives Information Provided: Yes service: No Current occupational status: retired Meds Allergies Allergy/AdvReac Type Severity Reaction Status Date / Time No Known Allergies Allergy Verified 06/04/20 11:24 [No Known Allergies*] Home Medications Medication Instructions Recorded Confirmed Last Taken Type albuterol sulfate 2 puff PO Q4-6H PRN 01/01/20 08/03/20 Unknown History clopidogrel 75 mg PO DAILY 01/01/20 08/03/20 05/01/20 History glimepiride 1 mg PO DAILY 01/01/20 08/03/20 05/01/20 History atorvastatin 80 mg tablet 80 mg PO DAILY 02/12/20 08/03/20 05/01/20 History aspirin 81 mg PO DAILY 05/02/20 08/03/20 05/01/20 History finasteride 5 mg PO DAILY 05/02/20 08/03/20 05/01/20 History melatonin 3 mg PO BEDTIME PRN 05/02/20 08/03/20 05/01/20 History multivitamin [Daily-Casa] 1 tab PO DAILY 05/02/20 08/03/20 05/01/20 History tamsulosin 0.4 mg PO BEDTIME 05/02/20 08/03/20 05/01/20 History amlodipine 1 tab PO DAILY 06/04/20 08/03/20 Unknown History gabapentin 1 cap PO DAILY 06/04/20 08/03/20 Unknown History lactulose 15 ml PO DAILY 06/04/20 08/03/20 Unknown History acetaminophen 325 mg capsule 650 mg PO QID PRN 06/21/20 08/03/20 Unknown History calcium carbonate 600 mg calcium 1,500 mg PO DAILY 06/21/20 08/03/20 Unknown History (1,500 mg) tablet ascorbic acid (vitamin C) 500 mg PO DAILY 08/03/20 08/03/20 Unknown History ferrous sulfate 325 mg PO DAILY 08/03/20 08/03/20 Unknown History omeprazole 20 mg PO DAILY 08/03/20 08/03/20 Unknown History Physical Exam Vital Signs and Narrative: Vital Signs: Last Vital Signs Temp 98.0 F 08/03/20 11:31 Pulse 88 08/03/20 14:37 Resp 14 08/03/20 14:37 BP 122/65 08/03/20 14:37 Pulse Ox 99 08/03/20 14:37 Body Mass Index 22.9 Const: General: comfortable, no acute distress, alert and awake Nutritional Appearance: well nourished Orientation/consciousness: patient oriented x3 HENMT: Head: Yes normocephalic and Yes atraumatic Eyes: Sclerae: sclerae normal Chest: Chest palpation & inspection: normal inspection of the chest Resp: Effort & Inspection: normal respiratory effort and no respiratory distress Cardio: Rate: regular rate Rhythm: regular rhythm GI: Palpation (GI): Soft to palpation and nontender : Other: al in place draining clear yellow urine Skin: Other: scab left knee; right foot wound wrapped in c/d/i dressing Neuro: Other: hand grasp equal bilaterally; unable to lift left arm against resistance due to shoulder pain General: patient oriented x3 Cranial nerves: Yes CN's II-XII intact bilaterally and Yes Bilaterally intact EOM present Extrem: Other: s/p left BKA - stump wrapped in tolu bandage Results Labs CBC and Chem 7: 08/03/20 09:50 08/03/20 09:50 Labs: Laboratory Results - last 24 hr 08/03/20 08/03/20 08/03/20 09:35 09:50 09:50 MCV 90.7 MCH 28.9 MCHC 31.9 RDW 15.3 Plt Count 310 MPV 8.5 L Immature Gran % (Auto) 0.2 Neut % (Auto) 68.3 Lymph % (Auto) 15.9 L [place] % (Auto) 6.1 Eos % (Auto) 8.8 H Baso % (Auto) 0.7 Lymph # (Auto) 0.9 L [place] # (Auto) 0.4 Eos # (Auto) 0.5 H Baso # (Auto) 0.0 Abs Immat Gran (auto) 0.01 Absolute Neuts (auto) 3.9 Absolute Nucleated RBC 0.000 Nucleated RBC % (auto) 0.0 PT 12.4 INR 1.0 APTT 36.9 Anion Gap Estim Creat Clear Calc Estimated GFR POC Glucose 98 Random Glucose Calcium Total Creatine Kinase Troponin I High Sens Urine Color Urine Appearance Urine pH Ur Specific [place] Urine Protein Urine Glucose (UA) Urine Ketones Urine Blood Urine Nitrite Ur Leukocyte Esterase Urine RBC Urine WBC Ur Squamous Epith Cells Urine Bacteria 08/03/20 08/03/20 08/03/20 09:50 09:50 11:01 MCV MCH MCHC RDW Plt Count MPV Immature Gran % (Auto) Neut % (Auto) Lymph % (Auto) [place] % (Auto) Eos % (Auto) Baso % (Auto) Lymph # (Auto) [place] # (Auto) Eos # (Auto) Baso # (Auto) Abs Immat Gran (auto) Absolute Neuts (auto) Absolute Nucleated RBC Nucleated RBC % (auto) PT INR APTT Anion Gap 12 Estim Creat Clear Calc 56.9 Estimated GFR > 60 POC Glucose Random Glucose 107 D Calcium 8.6 D Total Creatine Kinase 27 L Troponin I High Sens 7.5 Urine Color YELLOW Urine Appearance CLOUDY Urine pH 5.5 Ur Specific [place] 1.025 Urine Protein 1+ H Urine Glucose (UA) NEG Urine Ketones 5 Urine Blood 3+ H Urine Nitrite NEG Ur Leukocyte Esterase 1+ H Urine RBC 30-49 H Urine WBC 10-14 H Ur Squamous Epith Cells NONE Urine Bacteria 2+ Imaging Radiologist's Impressions: Impressions Chest X-Ray 08/03/20 09:22 IMPRESSION: Subtle finding groundglass opacities, similar to previous study 06/04/2020. There is no confluent infiltrate or pleural effusion. Head CT 08/03/20 09:23 IMPRESSION: No acute intracranial pathology compared to 02/01/2019. This critical result was discussed with Dr. Interiano at 9:40 AM hours on 08/03/2020. It was ascertained that the content and urgency of the report was understood at the time of direct communication. Head/Neck CTA 08/03/20 09:40 IMPRESSION: - There is a small infarct of indeterminate age within the left frontal centrum semiovale and left middle frontal gyrus that can be more definitively assessed with MRI. No large acute territorial infarcts and no intracranial hemorrhage. - No acute arterial occlusions intracranially. - Extensive atherosclerotic disease resulting in a severe stenosis of the proximal left intradural vertebral artery. - Extensive atherosclerotic disease throughout the carotid siphons bilaterally resulting in a moderate stenosis of the distal left cavernous/paraclinoid ICA segment. - There is atherosclerotic disease involving the carotid bifurcations bilaterally resulting in less than 50% stenoses of the proximal internal carotid arteries on both sides by NASCET criteria. - There is advanced multilevel cervical spondylosis. Advanced spondylitic changes result in possible severe central canal stenosis and mass effect on the cervical spinal cord at the C4-C5, C5-C6, and C6-C7 levels. If there is cervical myelopathy clinically, this can be further assessed with a dedicated cervical spine MRI. Stroke protocol discussed with Dr. Interiano at 12:46 PM on 08/03/2020. Assessment and Plan (1) Brain TIA: Status: Acute This is a 74-year-old Australian-speaking male with history of CVA, PVD, hypertension, diabetes, BPH/urinary obstruction with chronic indwelling Al, recent left BKA sent to the emergency department for episode of dizziness and transient visual loss. Dizziness/transient visual loss Symptoms have resolved head/neck cta done showing small infarct of indeterminate age within the left frontal centrum semiovale and left middle frontal gyrus. no large acute territorial infarcts or hemorrhage, no acute arterial occlusions. 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 Bilateral carotid stenosis less than 50%. r/t tia, r/o cva -Admit to telemetry for monitoring/neuro checks -MRI of brain -neurology consult -continue asa, plavix, statin; check lipid profile -PT/OT eval Left shoulder pain -xray left shoulder Diabetes -continue Lantus -hold glimepiride -SSI, POCs BPH/urinary obstruction with chronic indwelling Al -continue finasteride, tamsulosin Hypertension -Continue Norvasc PVD -continue aspirin, Plavix, statin DVT prophylaxis-Lovenox Code status-full code Attending-Dr. Simpson Disposition- to [facility] when medically stable
--- NOTE | 2020-08-03 16:07 | PM.EVENT ---
Event Note Date of Service: 08/03/20 Event Note: the patient was seen and evaluated with FLORENTIN Vazquez. I agree with her note, assessment and plan with the following. In summary, a 74 years old Chinese-speaking male with PMH of PVD, HTN, HLD, diabetes among others who presented to the hospital with an episode of vision loss and dizziness. He reported he woke up feeling dizzy and he was not able to see with either of his eyes. He was brought to the emergency and he returned his vision while in the CT scan, was not able to identify much before that. Improved back to baseline since then. Images including CTA showed several stenosis of proximal vertebral artery and abnormality in the cervical spinal cord with stenosis and mass effect. TIA Loss of vision could be secondary to posterior circ abnormality To do brain MRI Start baby aspirin and statin To get Neurology evaluation New checks, aspiration precautions Rest of evaluations by PA note.
[2020-08-03 18:09] LABS: Glucose, Whole Blood 127 mg/dL (60-115)
[2020-08-03 18:20] LABS: COVID-19 Test Negative (Negative)
[2020-08-03] MEDS: 0.9 % Sodium Chloride Flush 3 ML SYRINGE IVFLUSH ×2 (18:20→20:03)
[2020-08-03] MEDS: Enoxaparin Sodium 40 MG/0.4 ML SYRINGE SUBCUT (18:20)
[2020-08-03] MEDS: Aspirin 81 MG TAB.CHEW PO (18:20)
--- NOTE | 2020-08-03 18:45 | PC.NURSE ---
CALLED UP FOR RN REPORT, EXPECTING CALL BACK
[2020-08-03 19:56] LABS: Glucose, Whole Blood 177 mg/dL (60-115)
[2020-08-03] MEDS: Insulin Glargine,Hum.rec.anlog 100 UNIT/ML 10 ML VIAL 10 UNIT SUBCUT (20:00)
[2020-08-03] MEDS: Insulin Lispro 100 UNIT/ML 3 ML VIAL SUBCUT (20:00)
[2020-08-03] MEDS: Melatonin 3 MG TABLET PO (20:01)
[2020-08-03] MEDS: Tamsulosin HCL 0.4 MG CAPSULE PO (20:01)
[2020-08-03] MEDS: oxyCODONE HCl Immed Release 5 MG TABLET PO (20:01)
[2020-08-04 02:09] LABS: Glucose, Whole Blood 141 mg/dL (60-115)
[2020-08-04 03:42] VITALS: BP 130/63; PULSE 77; RESP 18; TEMP 36.6; O2SAT 98
[2020-08-04 07:25] LABS: Glucose, Whole Blood 93 mg/dL (60-115)
[2020-08-04 07:30] VITALS: BP 119/56; PULSE 81; RESP 20; TEMP 36.6; O2SAT 98
[2020-08-04 07:54] LABS: Cholesterol 95 mg/dL; HDL Cholesterol 42 mg/dL; LDL Cholesterol Calculated 41 mg/dl; Triglycerides 64 mg/dL
[2020-08-04] MEDS: Calcium Carbonate 750 MG TAB.CHEW 1500 MG PO (08:57)
[2020-08-04] MEDS: Clopidogrel Bisulfate 75 MG TABLET PO (08:57)
[2020-08-04] MEDS: Aspirin Enteric Coated 81 MG TABLET.DR PO (08:57)
[2020-08-04] MEDS: Omeprazole 20 MG CAPSULE.DR PO (08:57)
[2020-08-04] MEDS: Finasteride 5 MG TABLET PO (08:57)
[2020-08-04] MEDS: Multivitamin TABLET 1 TAB PO (08:57)
[2020-08-04] MEDS: Ferrous Sulfate 324 MG TABLET.DR PO (08:57)
[2020-08-04] MEDS: Gabapentin 100 MG CAPSULE PO (08:57)
[2020-08-04] MEDS: Ascorbic Acid 500 MG TABLET PO (08:57)
[2020-08-04] MEDS: Lactulose 20 GM/30 ML SOLUTION 10 GM PO (08:58)
[2020-08-04] MEDS: 0.9 % Sodium Chloride Flush 3 ML SYRINGE IVFLUSH ×2 (08:58→15:56)
[2020-08-04] MEDS: amLODIPine Besylate 5 MG TABLET PO (08:58)
--- NOTE | 2020-08-04 11:48 | HO.PM.IMPN ---
Subjective Subjective Date of Service: 08/04/20 <FLORENTIN Sánchez - Last Filed: 08/04/20 14:16> 08/04/20 <Benjamin Burns MD - Last Filed: 08/04/20 15:04> Interval History: seen in follow up for transient vision loss left shoulder pain seen and examined this am Urine culture growing Gram-positive cocci Gram-negative <FLORENTIN Sánchez - Last Filed: 08/04/20 14:16> Review of Systems Review of Systems: Yes all other systems are reviewed and are negative <FLORENTIN Sánchez - Last Filed: 08/04/20 14:16> Constitutional Constitutional: Denies chills and Denies fever(s) <FLORENTIN Sánchez - Last Filed: 08/04/20 14:16> Cardiovascular Cardiovascular: Denies chest pain <FLORENTIN Sánchez - Last Filed: 08/04/20 14:16> Respiratory Respiratory: Denies cough <FLORENTIN Sánchez - Last Filed: 08/04/20 14:16> Gastrointestinal Gastrointestinal: Denies abdominal pain <FLORENTIN Sánchez - Last Filed: 08/04/20 14:16> Physical Exam Vital Signs: Vital Signs: Last Vital Signs Temp 97.9 F 08/04/20 07:30 Pulse 81 08/04/20 07:30 Resp 20 08/04/20 07:30 BP 119/56 L 08/04/20 07:30 Pulse Ox 98 08/04/20 07:30 Body Mass Index 22.9 <FLORENTIN Sánchez - Last Filed: 08/04/20 14:16> Const: General: comfortable, no acute distress, alert and awake <FLORENTIN Sánchez - Last Filed: 08/04/20 14:16> Nutritional Appearance: well nourished <FLORENTIN Sánchez - Last Filed: 08/04/20 14:16> Orientation/consciousness: patient oriented x3 <FLORENTIN Sánchez - Last Filed: 08/04/20 14:16> HENMT: Head: Yes normocephalic and Yes atraumatic <FLORENTIN Sánchez - Last Filed: 08/04/20 14:16> Eyes: Sclerae: sclerae normal <FLORENTIN Sánchez - Last Filed: 08/04/20 14:16> Chest: Chest palpation & inspection: normal inspection of the chest <FLORENTIN Sánchez - Last Filed: 08/04/20 14:16> Resp: Effort & Inspection: normal respiratory effort and no respiratory distress <FLORENTIN Sánchez - Last Filed: 08/04/20 14:16> Cardio: Rate: regular rate <FLORENTIN Sánchez - Last Filed: 08/04/20 14:16> Rhythm: regular rhythm <FLORENTIN Sánchez - Last Filed: 08/04/20 14:16> GI: Palpation (GI): Soft to palpation and nontender <FLORENTIN Sánchez - Last Filed: 08/04/20 14:16> : Other: al in place draining clear yellow urine <FLORENTIN Sánchez - Last Filed: 08/04/20 14:16> Skin: Other: scab left knee <FLORENTIN Sánchez - Last Filed: 08/04/20 14:16> Neuro: Other: hand grasp equal bilaterally; unable to lift left arm against resistance due to shoulder pain <FLORENTIN Sánchez - Last Filed: 08/04/20 14:16> General: patient oriented x3 <FLORENTIN Sánchez - Last Filed: 08/04/20 14:16> Cranial nerves: Yes CN's II-XII intact bilaterally and Yes Bilaterally intact EOM present <FLORENTIN Sánchez - Last Filed: 08/04/20 14:16> Extrem: Other: s/p left BKA - stump wrapped in tolu bandage <FLORENTIN Sánchez - Last Filed: 08/04/20 14:16> Objective Data Current Medications Generic Name Dose Route Start Last Admin Trade Name Freq PRN Reason Stop Dose Admin Acetaminophen 650 mg 08/03/20 16:13 Acetaminophen 325 Mg Tablet PO Q6H PRN Pain, Mild (Pain Scale 1-3) Albuterol Sulfate 2 puff 08/03/20 16:13 Albuterol Sulfate 90 Mcg 8 Gm Inhaler INHALE Q4H PRN Shortness Of Breath Or Wheezing Amlodipine Besylate 5 mg 08/04/20 09:00 08/04/20 08:58 Amlodipine Besylate 5 Mg Tablet PO 5 mg DAILY RENETTA Administration Protocol Ascorbic Acid 500 mg 08/04/20 09:00 08/04/20 08:57 Ascorbic Acid 500 Mg Tablet PO 500 mg DAILY RENETTA Administration Aspirin 81 mg 08/04/20 09:00 08/04/20 08:57 Aspirin Enteric Coated 81 Mg Tablet. PO 81 mg DAILY RENETTA Administration Atorvastatin Calcium 80 mg 08/04/20 16:12 Atorvastatin Calcium 80 Mg Tablet PO DAILY RENETTA Calcium Carbonate 1,500 mg 08/04/20 09:00 08/04/20 08:57 Calcium Carbonate 750 Mg Tab.Chew PO 1,500 mg DAILY RENETTA Administration Clopidogrel Bisulfate 75 mg 08/04/20 09:00 08/04/20 08:57 Clopidogrel Bisulfate 75 Mg Tablet PO 75 mg DAILY RENETTA Administration Docusate Sodium 100 mg 08/03/20 16:13 Docusate Sodium 100 Mg Capsule PO DAILY PRN Constipation Enoxaparin Sodium 40 mg 08/03/20 16:13 08/03/20 18:20 Enoxaparin Sodium 40 Mg/0.4 Ml Syringe SUBCUT 40 mg Q24H RENETTA Administration Ferrous Sulfate 324 mg 08/04/20 09:00 08/04/20 08:57 Ferrous Sulfate 324 Mg Tablet. PO 324 mg DAILY RENETTA Administration Finasteride 5 mg 08/04/20 09:00 08/04/20 08:57 Finasteride 5 Mg Tablet PO 5 mg DAILY RENETTA Administration Gabapentin 100 mg 08/04/20 09:00 08/04/20 08:57 Gabapentin 100 Mg Capsule PO 100 mg DAILY RENETTA Administration Ceftriaxone Sodium 1 gm/ 50 mls @ 100 mls/hr 08/04/20 11:45 Sodium Chloride IV Q24H RENETTA Vancomycin HCl 1,000 mg/ 270 mls @ 270 mls/hr 08/04/20 11:44 Sodium Chloride IV 08/04/20 12:43 ONCE ONE Insulin Glargine 10 unit 08/03/20 21:00 08/03/20 20:00 Insulin Glargine,Hum.Rec.Anlog 100 Unit/Ml 10 Ml Vial SUBCUT 10 unit BEDTIME RENETTA Administration Insulin Human Lispro 0 unit 08/03/20 16:30 08/04/20 08:58 Insulin Lispro 100 Unit/Ml 3 Ml Vial SUBCUT Not Given QIDACHS [facility] Protocol Lactulose 10 gm 08/04/20 09:00 08/04/20 08:58 Lactulose 20 Gm/30 Ml Solution PO 10 gm DAILY RENETTA Administration Melatonin 3 mg 08/03/20 16:13 08/03/20 20:01 Melatonin 3 Mg Tablet PO 3 mg BEDTIME PRN Administration BEDTIME Multivitamins/Vitamin C 1 tab 08/04/20 09:00 08/04/20 08:57 Multivitamin Tablet PO 1 tab DAILY RENETTA Administration Omeprazole 20 mg 08/04/20 09:00 08/04/20 08:57 Omeprazole 20 Mg Capsule.Dr PO 20 mg DAILY RENETTA Administration Ondansetron HCl 4 mg 08/03/20 16:13 Ondansetron Hcl 4 Mg/2 Ml Vial IVPUSH Q8H PRN Nausea and Vomiting Oxycodone HCl 5 mg 08/03/20 16:13 08/03/20 20:01 Oxycodone Hcl Immed Release 5 Mg Tablet PO 5 mg Q4H PRN Administration pain (scale score 7-10) Pharmacy Consult 1 each 08/04/20 11:44 Consult Rx Vancomycin Dosing MISCELLANE DAILY PRN Consult order Sodium Chloride 3 ml 08/03/20 16:13 08/04/20 08:58 0.9 % Sodium Chloride Flush 3 Ml Syringe IVFLUSH 3 ml QSHIFT RENETTA Administration Tamsulosin HCl 0.4 mg 08/03/20 21:00 08/03/20 20:01 Tamsulosin Hcl 0.4 Mg Capsule PO 0.4 mg BEDTIME RENETTA Administration <FLORENTIN Sánchez - Last Filed: 08/04/20 14:16> Labs CBC & Chem 7: : 08/03/20 09:50 08/03/20 09:50 <FLORENTIN Sánchez Last Filed: 08/04/20 14:16> Microbiology Microbiology Results: Microbiology 08/03/20 00:00 Urine Al Port Urine Culture - Preliminary Gram negative keri Gram positive cocci <FLORENTIN Sánchez Last Filed: 08/04/20 14:16> Assessment and Plan (1) Brain TIA: Status: Acute <FLORENTIN Sánchez Last Filed: 08/04/20 14:16> Assessment and Plan: This is a 74-year-old Bulgarian-speaking male with history of CVA, PVD, hypertension, diabetes, BPH/urinary obstruction with chronic indwelling Al, recent left BKA sent to the emergency department for episode of dizziness and transient visual loss. Dizziness/transient visual loss Out of window for tpa, and symptoms resolved completely while in ED head/neck cta done showing small infarct of indeterminate age within the left frontal centrum semiovale and left middle frontal gyrus. no large acute territorial infarcts or hemorrhage, no acute arterial occlusions. 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 Bilateral carotid stenosis less than 50%. r/t tia, r/o cva -Admit to telemetry for monitoring/neuro checks -continue asa, plavix, statin; LDL 41 -PT/OT eval -MRI of brain pending -neurology consult pending UTI In setting of chronic indwelling Al No evidence of sepsis pt asymptomatic UCx growing gram neg keri and gram + cocci -start IV ceftriaxone -will give 1 dose vancomycin -follow final sensitivities of urine culture Right foot ulcer -general surgery consult for ?debridement Left shoulder pain -xray left shoulder shows changes likely related to rotator cuff pathology Diabetes -continue Lantus -hold glimepiride -SSI, POCs BPH/urinary obstruction with chronic indwelling Al -continue finasteride, tamsulosin Hypertension -Continue Norvasc PVD -continue aspirin, Plavix, statin s/p L BKA 06/16 -continue local wound care DVT prophylaxis-Lovenox Code status-full code Attending-Dr. Burns Disposition- likely back to [facility] when medically stable <FLORENTIN Sánchez - Last Filed: 08/04/20 14:16> I saw and examined patient with vision loss and now blury with occipital changes on imaging, he has no focal neuro deficit at this point, and he has MRI peding, neuro consult pending othwerwise I agree with assessment and plan as abobe <Benjamin Burns MD - Last Filed: 08/04/20 15:04>
[2020-08-04 12:00] VITALS: BP 138/62; PULSE 88; RESP 18; TEMP 36.1; O2SAT 98
[2020-08-04 12:04] LABS: Glucose, Whole Blood 197 mg/dL (60-115)
[2020-08-04] MEDS: Insulin Lispro 100 UNIT/ML 3 ML VIAL SUBCUT ×3 (12:34→21:02)
[2020-08-04] MEDS: cefTRIAXone sodium 1 GM in 0.9 % Sodium Chloride 50 ML IV (13:13)
[2020-08-04] MEDS: vancomycin HCL 1,250 MG in 0.9 % Sodium Chloride 250 ML 166.67 MG IV (13:46)
[2020-08-04 15:07] VITALS: BP 150/68; PULSE 90; RESP 15; TEMP 37.1; O2SAT 99
--- NOTE | 2020-08-04 15:47 | MHC.CM.PN ---
CM MET WITH PT WITH THE ASSISTANCE OF PRIVATE CHEF. PT CONFIRMS HE PLANS TO RETURN TO [facility] TO CONTINUE HIS STR. PT ALSO CONFIRMS HIS PCP IS BLANCA GILLESPIE AND HE HAS A HCP ON FILE. IMM DELIVERED REFERRAL WAS SENT TO [facility] TO FOLLOW ADMISSION AND THEY ARE AWARE THE PT WILL LIKELY RETURN WEDNESDAY. PT IS A BED HOLD AT THE FACILITY. PT WILL DC BACK TO [facility] VIA BLS
[2020-08-04] MEDS: Enoxaparin Sodium 40 MG/0.4 ML SYRINGE SUBCUT (15:55)
[2020-08-04] MEDS: Atorvastatin Calcium 80 MG TABLET PO (15:56)
[2020-08-04 16:09] LABS: Glucose, Whole Blood 168 mg/dL (60-115)
[2020-08-04 19:32] VITALS: BP 120/60; PULSE 92; RESP 15; TEMP 36.8; O2SAT 98
[2020-08-04 20:30] LABS: Glucose, Whole Blood 172 mg/dL (60-115)
[2020-08-04] MEDS: Insulin Glargine,Hum.rec.anlog 100 UNIT/ML 10 ML VIAL 10 UNIT SUBCUT (21:01)
[2020-08-04] MEDS: Tamsulosin HCL 0.4 MG CAPSULE PO (21:01)
[2020-08-04] MEDS: Melatonin 3 MG TABLET PO (21:10)
[2020-08-04] MEDS: oxyCODONE HCl Immed Release 5 MG TABLET PO (21:11)
[2020-08-04 23:56] VITALS: BP 144/65; PULSE 81; RESP 18; TEMP 36.7; O2SAT 98
[2020-08-05] VITALS (7 sets, daily range): BP systolic 110–132; BP diastolic 58–65; PULSE 80–92; RESP 16–20; TEMP 36.2–37; O2SAT 97–99
[2020-08-05] MEDS: 0.9 % Sodium Chloride Flush 3 ML SYRINGE IVFLUSH ×4 (00:07→20:39)
[2020-08-05 07:27] LABS: Glucose, Whole Blood 104 mg/dL (60-115)
--- NOTE | 2020-08-05 08:34 | PM.CNGS ---
History of Present Illness Consult details Consult date: 08/05/20 Narrative: 74-year-old male referred because of right foot ulcers. He was brought to the emergency room last 08/03/2020 because of transient loss of vision. The impression therefore was a TIA. He does have ulcers on the right foot which he has had for months. He actually had undergone left BKA with Dr. Yin last 06/10/2020 because of a diabetic ulcer. I have been consulted for care of the right foot ulcers. The patient is not very mobile and seems to be bedbound for most of the time. He is able to move his lower legs with gravity. Review of Systems Constitutional: Constitutional: Denies chills and Denies fever(s) Cardiovascular: Cardiovascular: Denies chest pain, Denies dyspnea and Denies dyspnea on exertion Respiratory: Respiratory: Denies cough, Denies dyspnea and Denies dyspnea on exertion Gastrointestinal: Gastrointestinal: Denies hematochezia and Denies change in bowel habits Genitourinary: Genitourinary: Denies hematuria and Denies difficulty urinating Musculoskeletal: Musculoskeletal: Denies back pain and Denies limited range of motion Neurologic: Reports as per HPI, Denies focal weakness and Reports convulsions Psychiatric: Psychiatric: Denies depression and Denies mood swings PMFSH Past Medical History Medical History (Updated 08/05/20 @ 12:30 by Melody Neville NP) Anemia Arthritis Asthma 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 BPH w urinary obs/LUTS Candidiasis of penis Cholelithiasis Decubitus ulcer of right foot Diabetes mellitus, type 2 Diverticulosis Gaytan catheter in place Hiatal hernia Hydronephrosis Hyperlipidemia Hypertension PVD (peripheral vascular disease) Sepsis Severe sepsis Wheelchair dependence Functional capacity: wheelchair bound Family History Family history: reviewed and not pertinent Surgical History Surgical History H/O hernia repair Status post below-knee amputation of left lower extremity Social History Social History Household Members: Other Household Members Other:: hand stamper Housing: Apartment Alcohol intake: never Smoking Status: Never smoker Second Hand Smoke Exposure: No Use of substances other than those prescribed or required for medical reasons: No Currently Displaying Signs/Symptoms of Drug Intoxication Withdrawal: No Advance Directives: No Advance Directives Information Provided: Yes Advance Directives on File: No Do you have thoughts of harming others: None Do you have a plan to hurt others: Clear service: No Current occupational status: retired Meds Allergies Allergy/AdvReac Type Severity Reaction Status Date / Time No Known Allergies Allergy Verified 06/04/20 11:24 [No Known Allergies*] Active Medications: Current Medications Generic Name Dose Route Start Last Admin Trade Name Freq PRN Reason Stop Dose Admin Acetaminophen 650 mg 08/03/20 16:13 Acetaminophen 325 Mg Tablet PO Q6H PRN Pain, Mild (Pain Scale 1-3) Albuterol Sulfate 2 puff 08/03/20 16:13 Albuterol Sulfate 90 Mcg 8 Gm Inhaler INHALE Q4H PRN Shortness Of Breath Or Wheezing Amlodipine Besylate 5 mg 08/04/20 09:00 08/04/20 08:58 Amlodipine Besylate 5 Mg Tablet PO 5 mg DAILY RENETTA Administration Protocol Ascorbic Acid 500 mg 08/04/20 09:00 08/04/20 08:57 Ascorbic Acid 500 Mg Tablet PO 500 mg DAILY RENETTA Administration Aspirin 81 mg 08/04/20 09:00 08/04/20 08:57 Aspirin Enteric Coated 81 Mg Tablet. PO 81 mg DAILY RENETTA Administration Atorvastatin Calcium 80 mg 08/04/20 16:12 08/04/20 15:56 Atorvastatin Calcium 80 Mg Tablet PO 80 mg DAILY RENETTA Administration Calcium Carbonate 1,500 mg 08/04/20 09:00 08/04/20 08:57 Calcium Carbonate 750 Mg Tab.Chew PO 1,500 mg DAILY RENETTA Administration Clopidogrel Bisulfate 75 mg 08/04/20 09:00 08/04/20 08:57 Clopidogrel Bisulfate 75 Mg Tablet PO 75 mg DAILY RENETTA Administration Docusate Sodium 100 mg 08/03/20 16:13 Docusate Sodium 100 Mg Capsule PO DAILY PRN Constipation Enoxaparin Sodium 40 mg 08/03/20 16:13 08/04/20 15:55 Enoxaparin Sodium 40 Mg/0.4 Ml Syringe SUBCUT 40 mg Q24H RENETTA Administration Ferrous Sulfate 324 mg 08/04/20 09:00 08/04/20 08:57 Ferrous Sulfate 324 Mg Tablet. PO 324 mg DAILY RENETTA Administration Finasteride 5 mg 08/04/20 09:00 08/04/20 08:57 Finasteride 5 Mg Tablet PO 5 mg DAILY RENETTA Administration Gabapentin 100 mg 08/04/20 09:00 08/04/20 08:57 Gabapentin 100 Mg Capsule PO 100 mg DAILY RENETTA Administration Ceftriaxone Sodium 1 gm/ 50 mls @ 100 mls/hr 08/04/20 12:00 08/04/20 14:02 Sodium Chloride IV Infused Q24H RENETTA Infusion Insulin Glargine 10 unit 08/03/20 21:00 08/04/20 21:01 Insulin Glargine,Hum.Rec.Anlog 100 Unit/Ml 10 Ml Vial SUBCUT 10 unit BEDTIME RENETTA Administration Insulin Human Lispro 0 unit 08/03/20 16:30 08/05/20 08:20 Insulin Lispro 100 Unit/Ml 3 Ml Vial SUBCUT Not Given YAZMIN [facility] Protocol Lactulose 10 gm 08/04/20 09:00 08/04/20 08:58 Lactulose 20 Gm/30 Ml Solution PO 10 gm DAILY RENETTA Administration Melatonin 3 mg 08/03/20 16:13 08/04/20 21:10 Melatonin 3 Mg Tablet PO 3 mg BEDTIME PRN Administration BEDTIME Multivitamins/Vitamin C 1 tab 08/04/20 09:00 08/04/20 08:57 Multivitamin Tablet PO 1 tab DAILY [facility] Administration Omeprazole 20 mg 08/04/20 09:00 08/04/20 08:57 Omeprazole 20 Mg Capsule.Dr PO 20 mg DAILY RENETTA Administration Ondansetron HCl 4 mg 08/03/20 16:13 Ondansetron Hcl 4 Mg/2 Ml Vial IVPUSH Q8H PRN Nausea and Vomiting Oxycodone HCl 5 mg 08/03/20 16:13 08/04/20 21:11 Oxycodone Hcl Immed Release 5 Mg Tablet PO 5 mg Q4H PRN Administration pain (scale score 7-10) Sodium Chloride 3 ml 08/03/20 16:13 08/05/20 00:07 0.9 % Sodium Chloride Flush 3 Ml Syringe IVFLUSH 3 ml QSHIFT RENETTA Administration Tamsulosin HCl 0.4 mg 08/03/20 21:00 08/04/20 21:01 Tamsulosin Hcl 0.4 Mg Capsule PO 0.4 mg BEDTIME RENETTA Administration Home Medications Medication Instructions Recorded Confirmed Last Taken Type albuterol sulfate 2 puff PO Q4-6H PRN 01/01/20 08/03/20 Unknown History clopidogrel 75 mg PO DAILY 01/01/20 08/03/20 05/01/20 History glimepiride 1 mg PO DAILY 01/01/20 08/03/20 05/01/20 History atorvastatin 80 mg tablet 80 mg PO DAILY 02/12/20 08/03/20 05/01/20 History aspirin 81 mg PO DAILY 05/02/20 08/03/20 05/01/20 History finasteride 5 mg PO DAILY 05/02/20 08/03/20 05/01/20 History melatonin 3 mg PO BEDTIME PRN 05/02/20 08/03/20 05/01/20 History multivitamin [Daily-Casa] 1 tab PO DAILY 05/02/20 08/03/20 05/01/20 History tamsulosin 0.4 mg PO BEDTIME 05/02/20 08/03/20 05/01/20 History amlodipine 1 tab PO DAILY 06/04/20 08/03/20 Unknown History gabapentin 1 cap PO DAILY 06/04/20 08/03/20 Unknown History lactulose 15 ml PO DAILY 06/04/20 08/03/20 Unknown History acetaminophen 325 mg capsule 650 mg PO QID PRN 06/21/20 08/03/20 Unknown History calcium carbonate 600 mg calcium 1,500 mg PO DAILY 06/21/20 08/03/20 Unknown History (1,500 mg) tablet ascorbic acid (vitamin C) 500 mg PO DAILY 08/03/20 08/03/20 Unknown History ferrous sulfate 325 mg PO DAILY 08/03/20 08/03/20 Unknown History omeprazole 20 mg PO DAILY 08/03/20 08/03/20 Unknown History Physical Exam Vital Signs: Vital Signs: Last Vital Signs Temp 98.1 F 08/05/20 07:37 Pulse 90 08/05/20 07:37 Resp 16 08/05/20 07:37 BP 110/58 L 08/05/20 07:37 Pulse Ox 98 08/05/20 07:37 Body Mass Index 22.9 Const: General: comfortable and no acute distress Resp: Effort & Inspection: normal respiratory effort Cardio: Rate: regular rate GI: Palpation (GI): Soft to palpation and nontender Neuro: Other: Able to move all extremities although very weak Extrem: Other: Right foot - multiple ulcers on the lateral aspect, appearing to be full-thickness of the skin with some subcutaneous fat involved; 3 of these were noted, 1 about 2.5 cm in diameter and to about 1.5 cm in diameter. All of these have some dry over line eschar; there was another more superficial ulcer on the dorsum of the foot, about 2.5 cm in diameter, likely a stage 2 Left BKA stump is well healed without any ulcers Results Labs Result diagrams: 08/03/20 09:50 08/03/20 09:50 Labs: Abnormal lab results 08/04/20 08/04/20 08/04/20 Range/Units 12:00 15:55 20:21 POC Glucose 197 H 168 H 172 H (60-115) mg/dL Urine 08/03/20 Range/Units 11:01 Urine Color YELLOW Urine Appearance CLOUDY Urine pH 5.5 (5.0-8.0) Ur Specific [place] 1.025 (1.005-1.025) Urine Protein 1+ H (NEG-TRACE) MG/DL Urine Glucose (UA) NEG (NEG) MG/DL All other labs normal. Assessment and Plan (1) Open wnd foot-complicated: Qualifiers: Encounter type: initial encounter Laterality: left Qualified Code(s): S91.302A - Unspecified open wound, left foot, initial encounter Status: Acute He has multiple ulcers on the right foot above. There are 4 of them, 3 on the lower aspect and one on the dorsum. The lateral foot ulcers are consistent with pressure ulcers at least a stage II. There is note of eschar on all of these ulcers. I therefore had to debride all of these ulcers using scissors down to viable tissue. I debrided this eschars involving the full-thickness of the skin and part of subcutaneous layer and fibrinous coating until I was able to see viable tissue. I covered all these ulcers with wet to dry dressing and wrapped this with a Victor M roll. His right calf should be elevated with 2 pillows so that the right foot will not be touching the bed. I will follow along for wound care while he is in the hospital.
[2020-08-05] MEDS: Gabapentin 100 MG CAPSULE PO (09:21)
[2020-08-05] MEDS: Lactulose 20 GM/30 ML SOLUTION 10 GM PO (09:21)
[2020-08-05] MEDS: Multivitamin TABLET 1 TAB PO (09:21)
[2020-08-05] MEDS: amLODIPine Besylate 5 MG TABLET PO (09:22)
[2020-08-05] MEDS: Calcium Carbonate 750 MG TAB.CHEW 1500 MG PO (09:23)
[2020-08-05] MEDS: Clopidogrel Bisulfate 75 MG TABLET PO (09:23)
[2020-08-05] MEDS: Finasteride 5 MG TABLET PO (09:23)
[2020-08-05] MEDS: Ascorbic Acid 500 MG TABLET PO (09:23)
[2020-08-05] MEDS: Ferrous Sulfate 324 MG TABLET.DR PO (09:23)
[2020-08-05] MEDS: Omeprazole 20 MG CAPSULE.DR PO (09:23)
[2020-08-05] MEDS: Atorvastatin Calcium 80 MG TABLET PO (09:23)
[2020-08-05] MEDS: Aspirin Enteric Coated 81 MG TABLET.DR PO (09:23)
--- NOTE | 2020-08-05 10:22 | PM.NEUROCN ---
History of Present Illness Data of Consult Service Date: 08/05/20 Primary Care Provider: Maxime Fernandez MD 74 years old man with underlying history of diabetes and its multiple complications came to hospital with dizziness and loss of vision. Patient stated that he lost vision in both eyes and was evaluated in emergency room for a stroke. No acute stroke was found his symptoms resolved and he was admitted for further evaluation. There was no nausea or vomiting or focal weakness of new onset. Review of Systems Review of Systems: No recent cold or flu-like illness or trauma. 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 urinary obs/LUTS Candidiasis of penis Cholelithiasis Decubitus ulcer of right foot Diabetes mellitus, type 2 Diverticulosis Gaytan catheter in place Hiatal hernia Hydronephrosis Hyperlipidemia Hypertension PVD (peripheral vascular disease) Sepsis Severe sepsis Wheelchair dependence Functional capacity: wheelchair bound Family History Family history: reviewed and not pertinent Surgical History Surgical History H/O hernia repair Status post below-knee amputation of left lower extremity Social History Social History Household Members: Other 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 Housing: Apartment Alcohol intake: never Smoking Status: Never smoker Second Hand Smoke Exposure: No Use of substances other than those prescribed or required for medical reasons: No Currently Displaying Signs/Symptoms of Drug Intoxication Withdrawal: No Advance Directives: No Advance Directives Information Provided: Yes Advance Directives on File: No Do you have thoughts of harming others: None Do you have a plan to hurt others: No Plan service: No Current occupational status: retired Meds Allergies Allergy/AdvReac Type Severity Reaction Status Date / Time No Known Allergies Allergy Verified 06/04/20 11:24 [No Known Allergies*] Active Medications: Current Medications Generic Name Dose Route Start Last Admin Trade Name Freq PRN Reason Stop Dose Admin Acetaminophen 650 mg 08/03/20 16:13 Acetaminophen 325 Mg Tablet PO Q6H PRN Pain, Mild (Pain Scale 1-3) Albuterol Sulfate 2 puff 08/03/20 16:13 Albuterol Sulfate 90 Mcg 8 Gm Inhaler INHALE Q4H PRN Shortness Of Breath Or Wheezing Amlodipine Besylate 5 mg 08/04/20 09:00 08/05/20 09:22 Amlodipine Besylate 5 Mg Tablet PO 5 mg DAILY RENETTA Administration Protocol Ascorbic Acid 500 mg 08/04/20 09:00 08/05/20 09:23 Ascorbic Acid 500 Mg Tablet PO 500 mg DAILY RENETTA Administration Aspirin 81 mg 08/04/20 09:00 08/05/20 09:23 Aspirin Enteric Coated 81 Mg Tablet. PO 81 mg DAILY RENETTA Administration Atorvastatin Calcium 80 mg 08/04/20 16:12 08/05/20 09:23 Atorvastatin Calcium 80 Mg Tablet PO 80 mg DAILY RENETTA Administration Calcium Carbonate 1,500 mg 08/04/20 09:00 08/05/20 09:23 Calcium Carbonate 750 Mg Tab.Chew PO 1,500 mg DAILY RENETTA Administration Clopidogrel Bisulfate 75 mg 08/04/20 09:00 08/05/20 09:23 Clopidogrel Bisulfate 75 Mg Tablet PO 75 mg DAILY RENETTA Administration Docusate Sodium 100 mg 08/03/20 16:13 Docusate Sodium 100 Mg Capsule PO DAILY PRN Constipation Enoxaparin Sodium 40 mg 08/03/20 16:13 08/04/20 15:55 Enoxaparin Sodium 40 Mg/0.4 Ml Syringe SUBCUT 40 mg Q24H RENETTA Administration Ferrous Sulfate 324 mg 08/04/20 09:00 08/05/20 09:23 Ferrous Sulfate 324 Mg Tablet. PO 324 mg DAILY RENETTA Administration Finasteride 5 mg 08/04/20 09:00 08/05/20 09:23 Finasteride 5 Mg Tablet PO 5 mg DAILY RENETTA Administration Gabapentin 100 mg 08/04/20 09:00 08/05/20 09:21 Gabapentin 100 Mg Capsule PO 100 mg DAILY [facility] Administration Ceftriaxone Sodium 1 gm/ 50 mls @ 100 mls/hr 08/04/20 12:00 08/04/20 14:02 Sodium Chloride IV Infused Q24H [facility] Infusion Insulin Glargine 10 unit 08/03/20 21:00 08/04/20 21:01 Insulin Glargine,Hum.Rec.Anlog 100 Unit/Ml 10 Ml Vial SUBCUT 10 unit BEDTIME RENETTA Administration Insulin Human Lispro 0 unit 08/03/20 16:30 08/05/20 08:20 Insulin Lispro 100 Unit/Ml 3 Ml Vial SUBCUT Not Given QIDAJasen [facility] Protocol Lactulose 10 gm 08/04/20 09:00 08/05/20 09:21 Lactulose 20 Gm/30 Ml Solution PO 10 gm DAILY RENETTA Administration Melatonin 3 mg 08/03/20 16:13 08/04/20 21:10 Melatonin 3 Mg Tablet PO 3 mg BEDTIME PRN Administration BEDTIME Multivitamins/Vitamin C 1 tab 08/04/20 09:00 08/05/20 09:21 Multivitamin Tablet PO 1 tab DAILY RENETTA Administration Omeprazole 20 mg 08/04/20 09:00 08/05/20 09:23 Omeprazole 20 Mg Capsule. PO 20 mg DAILY RENETTA Administration Ondansetron HCl 4 mg 08/03/20 16:13 Ondansetron Hcl 4 Mg/2 Ml Vial IVPUSH Q8H PRN Nausea and Vomiting Oxycodone HCl 5 mg 08/03/20 16:13 08/04/20 21:11 Oxycodone Hcl Immed Release 5 Mg Tablet PO 5 mg Q4H PRN Administration pain (scale score 7-10) Sodium Chloride 3 ml 08/03/20 16:13 08/05/20 09:24 0.9 % Sodium Chloride Flush 3 Ml Syringe IVFLUSH 3 ml QSHIFT [facility] Administration Tamsulosin HCl 0.4 mg 08/03/20 21:00 08/04/20 21:01 Tamsulosin Hcl 0.4 Mg Capsule PO 0.4 mg BEDTIME RENETTA Administration Home Medications Medication Instructions Recorded Confirmed Last Taken Type albuterol sulfate 2 puff PO Q4-6H PRN 01/01/20 08/03/20 Unknown History clopidogrel 75 mg PO DAILY 01/01/20 08/03/20 05/01/20 History glimepiride 1 mg PO DAILY 01/01/20 08/03/20 05/01/20 History atorvastatin 80 mg tablet 80 mg PO DAILY 02/12/20 08/03/20 05/01/20 History aspirin 81 mg PO DAILY 05/02/20 08/03/20 05/01/20 History finasteride 5 mg PO DAILY 05/02/20 08/03/20 05/01/20 History melatonin 3 mg PO BEDTIME PRN 05/02/20 08/03/20 05/01/20 History multivitamin [Daily-Casa] 1 tab PO DAILY 05/02/20 08/03/20 05/01/20 History tamsulosin 0.4 mg PO BEDTIME 05/02/20 08/03/20 05/01/20 History amlodipine 1 tab PO DAILY 06/04/20 08/03/20 Unknown History gabapentin 1 cap PO DAILY 06/04/20 08/03/20 Unknown History lactulose 15 ml PO DAILY 06/04/20 08/03/20 Unknown History acetaminophen 325 mg capsule 650 mg PO QID PRN 06/21/20 08/03/20 Unknown History calcium carbonate 600 mg calcium 1,500 mg PO DAILY 06/21/20 08/03/20 Unknown History (1,500 mg) tablet ascorbic acid (vitamin C) 500 mg PO DAILY 08/03/20 08/03/20 Unknown History ferrous sulfate 325 mg PO DAILY 08/03/20 08/03/20 Unknown History omeprazole 20 mg PO DAILY 08/03/20 08/03/20 Unknown History Physical Exam Vital Signs: Vital Signs: Last Vital Signs Temp 98.1 F 08/05/20 07:37 Pulse 90 08/05/20 09:22 Resp 16 08/05/20 07:37 BP 110/58 L 08/05/20 09:22 Pulse Ox 98 08/05/20 07:37 Body Mass Index 22.9 Alert and awake with normal spontaneity of speech fluency comprehension and affect. He was looking around but not making an eye contact. He was able to see finger movements in front of his eyes and on the side. Face was symmetrical. Left leg was partly amputated. There was significant ulceration of right foot. Deep tendon reflexes were absent. He did not move his left arm stating pain in left shoulder area. Examination was limited. Results Labs CBC & Chem 7: 08/03/20 09:50 08/03/20 09:50 Microbiology Microbiology Results: Microbiology 08/03/20 00:00 Urine [place] Urine Culture - Preliminary Acinetobacter baumannii Enterococcus species His CTA of brain and neck revealed extensive extra and intracranial atherosclerotic disease with no acute lesion. MRI of brain similarly did not reveal any acute lesion. Diffuse moderate cerebral atrophy and mild to moderate chronic microvascular ischemic changes including 1 distinct left frontal chronic cortical wedge-shaped small infarct. Assessment and Plan (1) Blindness: Problem details: Known cerebral or cortical reason for blindness was found. I would recommend Ophthalmology evaluation to rule out local etiologies particularly related to diabetes. His evaluation did show significant intra and extracranial atherosclerotic disease and chronic microvascular ischemic changes. One small chronic cortical infarct was also noted. Mainstay of management is anti-platelet agent, statin, and blood pressure management. Finally his imaging also reveals significant atrophy implying that he probably suffered from dementia related to that. 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
[2020-08-05 11:21] LABS: Glucose, Whole Blood 181 mg/dL (60-115)
[2020-08-05] MEDS: cefTRIAXone sodium 1 GM in 0.9 % Sodium Chloride 50 ML IV (12:03)
[2020-08-05] MEDS: Insulin Lispro 100 UNIT/ML 3 ML VIAL SUBCUT ×2 (12:04→20:35)
--- NOTE | 2020-08-05 12:05 | P.DS_ITS ---
DS: Providers Provider Date of Service: 08/07/20 <Melody Neville NP - Last Filed: 08/07/20 17:52> 08/07/20 <Mariano Alonzo MD - Last Filed: 08/08/20 11:38> Date of admission: 08/03/20 15:03 <Melody Neville NP - Last Filed: 08/07/20 17:52> Date of discharge: 08/05/20 <Melody Neville NP - Last Filed: 08/07/20 17:52> Primary care physician: Maxime Fernandez MD <Melody Neville NP - Last Filed: 08/07/20 17:52> Admitting clinician: Deirdre Ford <Melody Neville NP - Last Filed: 08/07/20 17:52> Attending physician on admission: Francie Simpson <Melody Neville NP - Last Filed: 08/07/20 17:52> Consults: 08/03/20 15:03 Consult to Neurology Routine Consulting Provider: [facility] Reason for consultation: dizziness; episode of vision loss; LUE pain/weakness Has provider been notified: No 08/04/20 14:07 Consult to General Surgery Routine Consulting Provider: Jeff Ruiz Reason for consultation: right foot ulcer Has provider been notified: No <Melody Neville NP - Last Filed: 08/07/20 17:52> Attending physician on discharge: Mariano Alonzo <Melody Neville NP - Last Filed: 08/07/20 17:52> Discharging clinician: Melody Neville <Melody Neville NP - Last Filed: 08/07/20 17:52> DS: Diagnosis Discharge Diagnosis (1) Brain TIA: Status: Acute <Melody Neville NP - Last Filed: 08/07/20 17:52> (2) Cerebral microvascular disease: Status: Acute <Melody Neville NP - Last Filed: 08/07/20 17:52> (3) Diabetic foot ulcer associated with diabetes mellitus due to underlying condition: Status: Acute <Melody Neville NP - Last Filed: 08/07/20 17:52> (4) UTI (urinary tract infection): Status: Acute <Melody Neville NP - Last Filed: 08/07/20 17:52> (5) COVID-19: Status: Acute <Melody Neville NP - Last Filed: 08/07/20 17:52> DS: Medications Discharge Medications Home Medications: Home Medications Medication Instructions Recorded Confirmed albuterol sulfate 2 puff PO Q4-6H PRN 01/01/20 08/03/20 clopidogrel 75 mg PO DAILY 01/01/20 08/03/20 glimepiride 1 mg PO DAILY 01/01/20 08/03/20 atorvastatin 80 mg tablet 80 mg PO DAILY 02/12/20 08/03/20 aspirin 81 mg PO DAILY 05/02/20 08/03/20 finasteride 5 mg PO DAILY 05/02/20 08/03/20 melatonin 3 mg PO BEDTIME PRN 05/02/20 08/03/20 multivitamin [Daily-Casa] 1 tab PO DAILY 05/02/20 08/03/20 tamsulosin 0.4 mg PO BEDTIME 05/02/20 08/03/20 amlodipine 1 tab PO DAILY 06/04/20 08/03/20 gabapentin 1 cap PO DAILY 06/04/20 08/03/20 lactulose 15 ml PO DAILY 06/04/20 08/03/20 acetaminophen 325 mg capsule 650 mg PO QID PRN 06/21/20 08/03/20 calcium carbonate 600 mg calcium 1,500 mg PO DAILY 06/21/20 08/03/20 (1,500 mg) tablet ascorbic acid (vitamin C) 500 mg PO DAILY 08/03/20 08/03/20 ferrous sulfate 325 mg PO DAILY 08/03/20 08/03/20 omeprazole 20 mg PO DAILY 08/03/20 08/03/20 Previous Rx's Medication Instructions Recorded Lantus Solostar U-100 Insulin 10 unit SUBCUT BEDTIME #0 ml 06/11/20 oxycodone 5 mg PO Q4H PRN #26 tab 06/11/20 <Melody Neville NP - Last Filed: 08/07/20 17:52> DS: Summary Hospital Course Hospital Course: HP as per admitting provider This is a 74-year-old Ecuadorean-speaking male who presents to the emergency department after an episode of vision loss. When patient woke up this morning he reports feeling dizzy and states that he was unable to see out of either eye. Everything was black. He was transported to the hospital for evaluation and underwent head and neck CTA. Shortly after finishing his CT scan his symptoms began to improve and have since completely resolved. Imaging showed small infarct of indeterminate age within the left centrum semiovale and left middle frontal gyrus, severe stenosis of the proximal vertebral artery, bilateral internal carotid stenosis less than 50% and severe canal stenosis and mass effect on the cervical spinal cord at C4-C5, C5- C6, and C6-C7 levels. Lab work was significant for anemia which appears to be chronic and is at the patient's baseline. Currently patient complains only of left arm pain which he reports is new . TIA. No acute stroke noted, however atherosclerotic disease and chronic microvascular ischemic changes noted with one small chronic cortical infarct. All visual symptoms resolved. He will continue plavix, aspirin and statin. He needs follow up with ophthamology for further evaluation of diabetes on visual problems. UTI secondary to Chronic indwelling al catheter, urine culture with gram negative rods and gram positive cocci. Treated with Rocephin and one dose of vancomycin. Seems like colonization, no further antibiotic treatment. Diabetic foot ulcer. Debridement by general surgeon today, continue daily dressing with foam dressing. COVID-19 positive. Obtained by a rapid COVID test upon discharge for transfer back to [facility]. Initial COVID test on August 03 was negative. Patient has no respiratory symptoms at this time. [facility] will take him back, COVID PCR x 2 negative Attending Attestation: Patient seen and examined independently and I was present during yanez portion of E/M service. Agree with Nathalia Neville NP's history, physical, assessment, and plan. <Melody Neville NP - Last Filed: 08/07/20 17:52> Time Spent with Patient Time attestation: Total time spent providing and/or coordinating discharge services: <Melody Neville NP - Last Filed: 08/07/20 17:52> Discharge coordination time: Greater than 30 minutes <Melody Neville NP - Last Filed: 08/07/20 17:52> Quality: Stroke Pt Provided Written Stroke Discharge Instructions: Patient given written information <Melody Neville NP - Last Filed: 08/07/20 17:52> Physical Exam Vital Signs: Vital Signs: Last Vital Signs Temp 97.3 F 08/05/20 12:00 Pulse 89 08/05/20 12:00 Resp 18 08/05/20 12:00 BP 132/63 08/05/20 12:00 Pulse Ox 98 08/05/20 12:00 Body Mass Index 22.9 <Melody Neville NP - Last Filed: 08/07/20 17:52> Appearing in no acute distress lung sounds are clear to auscultation heart regular rate rhythm, clear S1, S2 positive bowel sounds, abdomen is soft, nontender neuro patient is alert x3, no focal deficits Left BKA, right foot lateral aspect multiple ulcers, full thickness x3 Dry eschar debrided <Melody Neville NP - Last Filed: 08/07/20 17:52> DS: Data Data Completed and Pending Completed studies during hospitalization [Text1]: Procedures Detachment at Left Lower Leg, High, Open Approach (06/04/20) Dilation of Left Peroneal Artery using Drug-Coated Balloon, Percutaneous Approach (05/02/20) Dilation of Left Popliteal Artery using Drug-Coated Balloon, Percutaneous Approach (05/02/20) Excision of Left Foot Subcutaneous Tissue and Fascia, Open Approach (05/02/20) Excision of Right Foot Subcutaneous Tissue and Fascia, Open Approach (06/04/20) Excision of Right Foot Tendon, Open Approach (05/02/20) Transfusion of Nonautologous Red Blood Cells into Peripheral Vein, Percutaneous Approach (06/04/20) <Melody Neville NP - Last Filed: 08/07/20 17:52> Labs on day of discharge: Laboratory Results - last 24 hr 08/04/20 08/04/20 08/05/20 15:55 20:21 07:20 POC Glucose 168 H 172 H 104 08/05/20 11:15 POC Glucose 181 H Preliminary micro results at discharge 08/03/20 00:00 Urine Culture - Preliminary Urine [place] Acinetobacter baumannii Enterococcus species <Melody Neville NP - Last Filed: 08/07/20 17:52> Discharge Plan Discharge Anticipated Discharge Date/Time: 08/07/20 08:28 <Melody Neville NP - Last Filed: 08/07/20 17:52> Patient Disposition: Xfer SNF <CLEMENTINE Stein Last Filed: 08/07/20 17:52> Discharge Diagnosis: TIA UTI <Melody Neville NP - Last Filed: 08/07/20 17:52> TIA UTI <Mariano Alonzo MD - Last Filed: 08/08/20 11:38> Referrals: [facility] [Outside] - 1 Week Name,MD Maxime [Primary Care Provider] - 1 Week <Melody Neville NP - Last Filed: 08/07/20 17:52> Discharge Medications: Continued amlodipine 5 mg tablet 1 tab PO DAILY RF: 0 gabapentin 100 mg capsule 1 cap PO DAILY RF: 0 lactulose 10 gram/15 mL solution 15 ml PO DAILY RF: 0 Lantus Solostar U-100 Insulin 100 unit/mL (3 mL) insulin pen 10 unit subcut BEDTIME Qty: 0 RF: 0 oxycodone 5 mg tablet 5 mg PO Q4H PRN (Reason: pain (scale score 7-10)) Qty: 26 RF: 0 ferrous sulfate 325 mg (65 mg iron) Tablet 325 mg PO DAILY RF: 0 omeprazole 20 mg Capsule,Delayed Release(Dr/Ec) 20 mg PO DAILY RF: 0 ascorbic acid (vitamin C) 500 mg Tablet 500 mg PO DAILY RF: 0 clopidogrel 75 mg tablet 75 mg PO DAILY RF: 0 Hold Instructions: Resume on 01/09/20. Hold Plavix until Wednesday, if patient still has hematuria discussed with PCP for further use. glimepiride 1 mg tablet 1 mg PO DAILY RF: 0 albuterol sulfate 90 mcg/actuation HFA aerosol inhaler 2 puff PO Q4-6H PRN (Reason: Shortness Of Breath Or Wheezing) RF: 0 multivitamin [Daily-Casa] Tablet 1 tab PO DAILY RF: 0 aspirin 81 mg Tablet,Delayed Release (Dr/Ec) 81 mg PO DAILY RF: 0 tamsulosin 0.4 mg Capsule 0.4 mg PO BEDTIME RF: 0 finasteride 5 mg Tablet 5 mg PO DAILY RF: 0 melatonin 3 mg Capsule 3 mg PO BEDTIME PRN (Reason: BEDTIME) RF: 0 atorvastatin 80 mg tablet 80 mg PO DAILY RF: 0 acetaminophen 325 mg capsule 650 mg PO QID PRN (Reason: Pain) RF: 0 calcium carbonate 600 mg calcium (1,500 mg) tablet 1,500 mg PO DAILY RF: 0 <Melody Neville NP - Last Filed: 08/07/20 17:52> Discharge Orders: Discharge Order (Routine); Ordered 08/07/20 Ordered By: Melody Neville <Melody Neville NP - Last Filed: 08/07/20 17:52> Diet: advance to usual diet <Melody Neville NP - Last Filed: 08/07/20 17:52> advance to usual diet <Mariano Alonzo MD - Last Filed: 08/08/20 11:38> Activity on Discharge: As tolerated <Melody Neville NP - Last Filed: 08/07/20 17:52> As tolerated <Mariano Alonzo MD - Last Filed: 08/08/20 11:38> Stand Alone Forms: Patient Portal Discharge page <Melody Neville NP - Last Filed: 08/07/20 17:52> Care Plan Goals: Resolution of visual symptoms Daily wound care dressings to right foot Foam dressing Elevate right leg so heal does not touch bed/chair [place]ore precautions <Melody Neville NP - Last Filed: 08/07/20 17:52> Health Concerns: TIA Vertebral artery stenosis UTI Diabetic foot ulcer <Melody Neville NP - Last Filed: 08/07/20 17:52> Plan of Treatment: Follow up with ophthamologist for evaluation of diabetic etiologies of eye problems. Dr. Cipriano Dash [phone] Follow up with primary care provider as needed. <Melody Neville NP - Last Filed: 08/07/20 17:52> Assessment: See discharge summary <Melody Neville NP - Last Filed: 08/07/20 17:52> Discharge Date/Time: 08/07/20 14:51 <Melody Neville NP - Last Filed: 08/07/20 17:52>
[2020-08-05 12:45] LABS: COVID-19 Test Positive (Negative); IDNOW Serial# 9DD0AD1C
--- NOTE | 2020-08-05 12:45 | MHC.CM.PN ---
pt to be dcd at 2:30 today to [facility] by amb attempted to reach son tha at [phone] no answer and unable to leave message as his mail box is full
--- NOTE | 2020-08-05 13:12 | MHC.CM.PN ---
pts dc cancelled till he has had a pcr covid test [facility] will accept pt back after results of test is known
[2020-08-05] MEDS: Enoxaparin Sodium 40 MG/0.4 ML SYRINGE SUBCUT (16:20)
[2020-08-05 16:54] LABS: Glucose, Whole Blood 122 mg/dL (60-115)
[2020-08-05 20:07] LABS: Glucose, Whole Blood 173 mg/dL (60-115)
[2020-08-05] MEDS: Tamsulosin HCL 0.4 MG CAPSULE PO (20:34)
[2020-08-05] MEDS: Insulin Glargine,Hum.rec.anlog 100 UNIT/ML 10 ML VIAL 10 UNIT SUBCUT (20:35)
[2020-08-05] MEDS: Melatonin 3 MG TABLET PO (20:35)
[2020-08-06] VITALS (7 sets, daily range): BP systolic 105–144; BP diastolic 57–69; PULSE 82–94; RESP 14–18; TEMP 36.1–36.8; O2SAT 97–99
[2020-08-06 07:07] LABS: Glucose, Whole Blood 108 mg/dL (60-115)
--- NOTE | 2020-08-06 08:16 | P.PNIM_ITS ---
Subjective Subjective Date of Service: 08/06/20 Interval History: Late entry. Follow up TIA. Feeling better no vision issues Physical Exam Vital Signs: Vital Signs: Last Vital Signs Temp 97 F 08/06/20 07:07 Pulse 86 08/06/20 07:07 Resp 18 08/06/20 07:07 BP 129/60 08/06/20 07:07 Pulse Ox 99 08/06/20 07:07 Body Mass Index 22.9 Appearing in no acute distress lung sounds are clear to auscultation heart regular rate rhythm, clear S1, S2 positive bowel sounds, abdomen is soft, nontender neuro patient is alert x3, no focal deficits Objective Data Current Medications Generic Name Dose Route Start Last Admin Trade Name Freq PRN Reason Stop Dose Admin Acetaminophen 650 mg 08/03/20 16:13 Acetaminophen 325 Mg Tablet PO Q6H PRN Pain, Mild (Pain Scale 1-3) Albuterol Sulfate 2 puff 08/03/20 16:13 Albuterol Sulfate 90 Mcg 8 Gm Inhaler INHALE Q4H PRN Shortness Of Breath Or Wheezing Amlodipine Besylate 5 mg 08/04/20 09:00 08/05/20 09:22 Amlodipine Besylate 5 Mg Tablet PO 5 mg DAILY RENETTA Administration Protocol Ascorbic Acid 500 mg 08/04/20 09:00 08/05/20 09:23 Ascorbic Acid 500 Mg Tablet PO 500 mg DAILY RENETTA Administration Aspirin 81 mg 08/04/20 09:00 08/05/20 09:23 Aspirin Enteric Coated 81 Mg Tablet.Dr PO 81 mg DAILY RENETTA Administration Atorvastatin Calcium 80 mg 08/04/20 16:12 08/05/20 09:23 Atorvastatin Calcium 80 Mg Tablet PO 80 mg DAILY RENETTA Administration Calcium Carbonate 1,500 mg 08/04/20 09:00 08/05/20 09:23 Calcium Carbonate 750 Mg Tab.Chew PO 1,500 mg DAILY RENETTA Administration Clopidogrel Bisulfate 75 mg 08/04/20 09:00 08/05/20 09:23 Clopidogrel Bisulfate 75 Mg Tablet PO 75 mg DAILY RENETTA Administration Docusate Sodium 100 mg 08/03/20 16:13 Docusate Sodium 100 Mg Capsule PO DAILY PRN Constipation Enoxaparin Sodium 40 mg 08/03/20 16:13 08/05/20 16:20 Enoxaparin Sodium 40 Mg/0.4 Ml Syringe SUBCUT 40 mg Q24H RENETTA Administration Ferrous Sulfate 324 mg 08/04/20 09:00 08/05/20 09:23 Ferrous Sulfate 324 Mg Tablet. PO 324 mg DAILY RENETTA Administration Finasteride 5 mg 08/04/20 09:00 08/05/20 09:23 Finasteride 5 Mg Tablet PO 5 mg DAILY RENETTA Administration Gabapentin 100 mg 08/04/20 09:00 08/05/20 09:21 Gabapentin 100 Mg Capsule PO 100 mg DAILY RENETTA Administration Ceftriaxone Sodium 1 gm/ 50 mls @ 100 mls/hr 08/04/20 12:00 08/05/20 12:43 Sodium Chloride IV Infused Q24H RENETTA Infusion Insulin Glargine 10 unit 08/03/20 21:00 08/05/20 20:35 Insulin Glargine,Hum.Rec.Anlog 100 Unit/Ml 10 Ml Vial SUBCUT 10 unit BEDTIME RENETTA Administration Insulin Human Lispro 0 unit 08/03/20 16:30 08/06/20 07:21 Insulin Lispro 100 Unit/Ml 3 Ml Vial SUBCUT Not Given QIDACHS [facility] Protocol Lactulose 10 gm 08/04/20 09:00 08/05/20 09:21 Lactulose 20 Gm/30 Ml Solution PO 10 gm DAILY [facility] Administration Melatonin 3 mg 08/03/20 16:13 08/05/20 20:35 Melatonin 3 Mg Tablet PO 3 mg BEDTIME PRN Administration BEDTIME Multivitamins/Vitamin C 1 tab 08/04/20 09:00 08/05/20 09:21 Multivitamin Tablet PO 1 tab DAILY RENETTA Administration Omeprazole 20 mg 08/04/20 09:00 08/05/20 09:23 Omeprazole 20 Mg Capsule. PO 20 mg DAILY RENETTA Administration Ondansetron HCl 4 mg 08/03/20 16:13 Ondansetron Hcl 4 Mg/2 Ml Vial IVPUSH Q8H PRN Nausea and Vomiting Oxycodone HCl 5 mg 08/03/20 16:13 08/04/20 21:11 Oxycodone Hcl Immed Release 5 Mg Tablet PO 5 mg Q4H PRN Administration pain (scale score 7-10) Sodium Chloride 3 ml 08/03/20 16:13 08/05/20 20:39 0.9 % Sodium Chloride Flush 3 Ml Syringe IVFLUSH 3 ml QSHIFT RENETTA Administration Tamsulosin HCl 0.4 mg 08/03/20 21:00 08/05/20 20:34 Tamsulosin Hcl 0.4 Mg Capsule PO 0.4 mg BEDTIME RENETTA Administration Labs CBC & Chem 7: 08/03/20 09:50 08/03/20 09:50 Microbiology Microbiology Results: Microbiology 08/03/20 00:00 Urine Al Port Urine Culture - Final Acinetobacter baumannii Enterococcus faecalis Assessment and Plan (1) Brain TIA: Status: Acute Assessment and Plan: This is a 74-year-old [place]utanese-speaking male with history of CVA, PVD, hypertension, diabetes, BPH/urinary obstruction with chronic indwelling Al, recent left BKA sent to the emergency department for episode of dizziness and transient visual loss. Covid 19. Tested prior to tx back to [facility]. positive result. He will be accepted back after PCR -PCR pending Dizziness/transient visual loss Out of window for tpa, and symptoms resolved completely while in ED head/neck cta done showing small infarct of indeterminate age within the left frontal centrum semiovale and left middle frontal gyrus. no large acute territorial infarcts or hemorrhage, no acute arterial occlusions. 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 Bilateral carotid stenosis less than 50%. r/t tia, r/o cva -Neuro function intact, no visual issues -continue asa, plavix, statin; LDL 41 -PT/OT eval -MRI of brain pending -neurology evaluated, rec optho for diabetes etiology. 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 Alonzo Disposition- Back to [facility] when covid PCR back
[2020-08-06] MEDS: Calcium Carbonate 750 MG TAB.CHEW 1500 MG PO (09:36)
[2020-08-06] MEDS: Ascorbic Acid 500 MG TABLET PO (09:39)
[2020-08-06] MEDS: Multivitamin TABLET 1 TAB PO (09:39)
[2020-08-06] MEDS: Atorvastatin Calcium 80 MG TABLET PO (09:39)
[2020-08-06] MEDS: Clopidogrel Bisulfate 75 MG TABLET PO (09:39)
[2020-08-06] MEDS: amLODIPine Besylate 5 MG TABLET PO (09:40)
[2020-08-06] MEDS: Omeprazole 20 MG CAPSULE.DR PO (09:40)
[2020-08-06] MEDS: Ferrous Sulfate 324 MG TABLET.DR PO (09:40)
[2020-08-06] MEDS: Aspirin Enteric Coated 81 MG TABLET.DR PO (09:40)
[2020-08-06] MEDS: Gabapentin 100 MG CAPSULE PO (09:40)
[2020-08-06] MEDS: Finasteride 5 MG TABLET PO (09:40)
[2020-08-06] MEDS: Lactulose 20 GM/30 ML SOLUTION 10 GM PO (09:40)
[2020-08-06] MEDS: oxyCODONE HCl Immed Release 5 MG TABLET PO (09:46)
--- NOTE | 2020-08-06 10:43 | P.PNIM_ITS ---
Subjective Subjective Date of Service: 08/06/20 <Melody Neville NP - Last Filed: 08/06/20 13:16> 08/07/20 <Mariano Alonzo MD - Last Filed: 08/07/20 07:54> Interval History: Late entry. Follow up TIA. Feeling better no vision issues <Melody Neville NP - Last Filed: 08/06/20 13:16> Review of Systems No recent cold or flu-like illness or trauma. <Melody Neville NP - Last Filed: 08/06/20 13:16> Constitutional Constitutional: Denies chills and Denies fever(s) <Melody Neville NP - Last Filed: 08/06/20 13:16> Cardiovascular Cardiovascular: Denies chest pain, Denies dyspnea and Denies dyspnea on exertion <Melody Neville NP - Last Filed: 08/06/20 13:16> Respiratory Respiratory: Denies cough, Denies dyspnea and Denies dyspnea on exertion <Melody Neville NP - Last Filed: 08/06/20 13:16> Gastrointestinal Gastrointestinal: Denies abdominal pain, Denies hematochezia and Denies change in bowel habits <Melody Neville NP - Last Filed: 08/06/20 13:16> Musculoskeletal Musculoskeletal: Denies back pain and Denies limited range of motion <Melody Neville NP - Last Filed: 08/06/20 13:16> Neurologic Neurologic: Reports as per HPI, Denies focal weakness and Reports convulsions <Melody Neville NP - Last Filed: 08/06/20 13:16> Psychiatric Psychiatric: Denies depression and Denies mood swings <Melody Neville NP - Last Filed: 08/06/20 13:16> Physical Exam Vital Signs: Vital Signs: Last Vital Signs Temp 97 F 08/06/20 07:07 Pulse 86 08/06/20 09:40 Resp 18 08/06/20 07:07 BP 129/60 08/06/20 09:40 Pulse Ox 99 08/06/20 07:07 Body Mass Index 22.9 <Melody Neville NP - Last Filed: 08/06/20 13:16> Appearing in no acute distress lung sounds are clear to auscultation heart regular rate rhythm, clear S1, S2 positive bowel sounds, abdomen is soft, nontender neuro patient is alert x3, no focal deficits <Melody Neville ELECTRICAL SYSTEM SPECIALIST - Last Filed: 08/06/20 13:16> Objective Data Current Medications Generic Name Dose Route Start Last Admin Trade Name Marko PRN Reason Stop Dose Admin Acetaminophen 650 mg 08/03/20 16:13 Acetaminophen 325 Mg Tablet PO Q6H PRN Pain, Mild (Pain Scale 1-3) Albuterol Sulfate 2 puff 08/03/20 16:13 Albuterol Sulfate 90 Mcg 8 Gm Inhaler INHALE Q4H PRN Shortness Of Breath Or Wheezing Amlodipine Besylate 5 mg 08/04/20 09:00 08/06/20 09:40 Amlodipine Besylate 5 Mg Tablet PO 5 mg DAILY RENETTA Administration Protocol Ascorbic Acid 500 mg 08/04/20 09:00 08/06/20 09:39 Ascorbic Acid 500 Mg Tablet PO 500 mg DAILY RENETTA Administration Aspirin 81 mg 08/04/20 09:00 08/06/20 09:40 Aspirin Enteric Coated 81 Mg Tablet. PO 81 mg DAILY RENETTA Administration Atorvastatin Calcium 80 mg 08/04/20 16:12 08/06/20 09:39 Atorvastatin Calcium 80 Mg Tablet PO 80 mg DAILY RENETTA Administration Calcium Carbonate 1,500 mg 08/04/20 09:00 08/06/20 09:36 Calcium Carbonate 750 Mg Tab.Chew PO 1,500 mg DAILY RENETTA Administration Clopidogrel Bisulfate 75 mg 08/04/20 09:00 08/06/20 09:39 Clopidogrel Bisulfate 75 Mg Tablet PO 75 mg DAILY RENETTA Administration Docusate Sodium 100 mg 08/03/20 16:13 Docusate Sodium 100 Mg Capsule PO DAILY PRN Constipation Enoxaparin Sodium 40 mg 08/03/20 16:13 08/05/20 16:20 Enoxaparin Sodium 40 Mg/0.4 Ml Syringe SUBCUT 40 mg Q24H RENETTA Administration Ferrous Sulfate 324 mg 08/04/20 09:00 08/06/20 09:40 Ferrous Sulfate 324 Mg Tablet. PO 324 mg DAILY RENETTA Administration Finasteride 5 mg 08/04/20 09:00 08/06/20 09:40 Finasteride 5 Mg Tablet PO 5 mg DAILY RENETTA Administration Gabapentin 100 mg 08/04/20 09:00 08/06/20 09:40 Gabapentin 100 Mg Capsule PO 100 mg DAILY RENETTA Administration Ceftriaxone Sodium 1 gm/ 50 mls @ 100 mls/hr 08/04/20 12:00 08/05/20 12:43 Sodium Chloride IV Infused Q24H RENETTA Infusion Insulin Glargine 10 unit 08/03/20 21:00 08/05/20 20:35 Insulin Glargine,Hum.Rec.Anlog 100 Unit/Ml 10 Ml Vial SUBCUT 10 unit BEDTIME RENETTA Administration Insulin Human Lispro 0 unit 08/03/20 16:30 08/06/20 07:21 Insulin Lispro 100 Unit/Ml 3 Ml Vial SUBCUT Not Given QIDACHS COUNTS INCLUDE 234 BEDS AT THE [facility] Protocol Lactulose 10 gm 08/04/20 09:00 08/06/20 09:40 Lactulose 20 Gm/30 Ml Solution PO 10 gm DAILY COUNTS INCLUDE 234 BEDS AT THE [facility] Administration Melatonin 3 mg 08/03/20 16:13 08/05/20 20:35 Melatonin 3 Mg Tablet PO 3 mg BEDTIME PRN Administration BEDTIME Multivitamins/Vitamin C 1 tab 08/04/20 09:00 08/06/20 09:39 Multivitamin Tablet PO 1 tab DAILY COUNTS INCLUDE 234 BEDS AT THE [facility] Administration Omeprazole 20 mg 08/04/20 09:00 08/06/20 09:40 Omeprazole 20 Mg Capsule.Dr PO 20 mg DAILY COUNTS INCLUDE 234 BEDS AT THE [facility] Administration Ondansetron HCl 4 mg 08/03/20 16:13 Ondansetron Hcl 4 Mg/2 Ml Vial IVPUSH Q8H PRN Nausea and Vomiting Oxycodone HCl 5 mg 08/03/20 16:13 08/06/20 09:46 Oxycodone Hcl Immed Release 5 Mg Tablet PO 5 mg Q4H PRN Administration pain (scale score 7-10) Sodium Chloride 3 ml 08/03/20 16:13 08/05/20 20:39 0.9 % Sodium Chloride Flush 3 Ml Syringe IVFLUSH 3 ml QSHIFT RENETTA Administration Tamsulosin HCl 0.4 mg 08/03/20 21:00 08/05/20 20:34 Tamsulosin Hcl 0.4 Mg Capsule PO 0.4 mg BEDTIME RENETTA Administration <Melody Neville NP - Last Filed: 08/06/20 13:16> Labs CBC & Chem 7: : 08/03/20 09:50 08/03/20 09:50 <Melody Neville NP - Last Filed: 08/06/20 13:16> Microbiology Microbiology Results: Microbiology 08/03/20 00:00 Urine Al Port Urine Culture - Final Acinetobacter baumannii Enterococcus faecalis <Melody Neville NP - Last Filed: 08/06/20 13:16> Assessment and Plan (1) Brain TIA: Status: Acute <Melody Neville NP - Last Filed: 08/06/20 13:16> Assessment and Plan: This is a 74-year-old Japanese-speaking male with history of CVA, PVD, hypertension, diabetes, BPH/urinary obstruction with chronic indwelling Al, recent left BKA sent to the emergency department for episode of dizziness and transient visual loss. Covid 19. Tested prior to tx back to [facility]. positive result. He will be accepted back after PCR -PCRx2 pending Dizziness/transient visual loss Out of window for tpa, and symptoms resolved completely while in ED head/neck cta done showing small infarct of indeterminate age within the left frontal centrum semiovale and left middle frontal gyrus. no large acute territorial infarcts or hemorrhage, no acute arterial occlusions. 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 Bilateral carotid stenosis less than 50%. r/t tia, r/o cva -Neuro function intact, no visual issues -continue asa, plavix, statin; LDL 41 -PT/OT eval -MRI of brain pending -neurology evaluated, rec optho for diabetes etiology. 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 Alonzo Disposition- Back to [facility] when covid PCR back Attending: Dr. Alonzo <Melody Neville NP - Last Filed: 08/06/20 13:16>
[2020-08-06] MEDS: 0.9 % Sodium Chloride Flush 3 ML SYRINGE IVFLUSH ×3 (10:44→20:19)
[2020-08-06 11:14] LABS: Glucose, Whole Blood 153 mg/dL (60-115)
[2020-08-06] MEDS: Insulin Lispro 100 UNIT/ML 3 ML VIAL SUBCUT (11:56)
--- NOTE | 2020-08-06 13:06 | MHC.CM.PN ---
Per Alla at [facility], patient would need a 2nd PCR COVID test done today before patient can return. MD notified and will order test.
[2020-08-06 14:05] LABS: Adenovirus PCR Not Detected (Not Detect.); Bordetella parapertussis PCR Not Detected (Not Detect.); Bordetella pertussis PCR Not Detected (Not Detect.); Chlamydia pneumoniae PCR Not Detected (Not Detect.); Coronavirus 229E PCR Not Detected (Not Detect.); Coronavirus HKU1 PCR Not Detected (Not Detect.); Coronavirus NL63 PCR Not Detected (Not Detect.); Coronavirus OC43 PCR Not Detected (Not Detect.); Human metapneumovirus PCR Not Detected (Not Detect.); Influenza A PCR Not Detected (Not Detect.); Influenza B PCR Not Detected (Not Detect.); Mycoplasma pneumoniae PCR Not Detected (Not Detect.); Parainfluenza 1 PCR Not Detected (Not Detect.); Parainfluenza 2 PCR Not Detected (Not Detect.); Parainfluenza 3 PCR Not Detected (Not Detect.); Parainfluenza 4 PCR Not Detected (Not Detect.); RSV PCR Not Detected (Not Detect.); Rhino/Enterovirus PCR Not Detected (Not Detect.); SARS-CoV-2 PCR Not Detected (Not Detect.)
[2020-08-06] MEDS: cefTRIAXone sodium 1 GM in 0.9 % Sodium Chloride 50 ML IV (14:05)
[2020-08-06 16:20] LABS: Glucose, Whole Blood 111 mg/dL (60-115)
[2020-08-06] MEDS: Enoxaparin Sodium 40 MG/0.4 ML SYRINGE SUBCUT (17:05)
[2020-08-06 20:08] LABS: Glucose, Whole Blood 136 mg/dL (60-115)
[2020-08-06] MEDS: Insulin Glargine,Hum.rec.anlog 100 UNIT/ML 10 ML VIAL 10 UNIT SUBCUT (20:18)
[2020-08-06] MEDS: Tamsulosin HCL 0.4 MG CAPSULE PO (20:18)
[2020-08-07 03:54] VITALS: BP 118/57; PULSE 87; RESP 12; TEMP 36; O2SAT 98
[2020-08-07 07:15] VITALS: BP 107/56; PULSE 90; RESP 18; TEMP 36.1; O2SAT 99
[2020-08-07 07:15] LABS: Glucose, Whole Blood 90 mg/dL (60-115)
[2020-08-07] MEDS: Lactulose 20 GM/30 ML SOLUTION 10 GM PO (09:38)
[2020-08-07 09:39] VITALS: BP 107/56; PULSE 92
[2020-08-07] MEDS: Multivitamin TABLET 1 TAB PO (09:39)
[2020-08-07] MEDS: Omeprazole 20 MG CAPSULE.DR PO (09:39)
[2020-08-07] MEDS: amLODIPine Besylate 5 MG TABLET PO (09:39)
[2020-08-07] MEDS: Ferrous Sulfate 324 MG TABLET.DR PO (09:39)
[2020-08-07] MEDS: 0.9 % Sodium Chloride Flush 3 ML SYRINGE IVFLUSH (09:39)
[2020-08-07] MEDS: Ascorbic Acid 500 MG TABLET PO (09:39)
[2020-08-07] MEDS: Calcium Carbonate 750 MG TAB.CHEW 1500 MG PO (09:39)
[2020-08-07] MEDS: Clopidogrel Bisulfate 75 MG TABLET PO (09:39)
[2020-08-07] MEDS: Aspirin Enteric Coated 81 MG TABLET.DR PO (09:39)
[2020-08-07] MEDS: Gabapentin 100 MG CAPSULE PO (09:39)
[2020-08-07] MEDS: Atorvastatin Calcium 80 MG TABLET PO (09:39)
[2020-08-07] MEDS: Finasteride 5 MG TABLET PO (09:39)
--- NOTE | 2020-08-07 10:26 | MHC.CM.PN ---
IMM 08/07/20 dc today negative Covid result x2. [facility] will accept today. DC info sent transport booked for 1pm.
[2020-08-07 11:20] LABS: Glucose, Whole Blood 185 mg/dL (60-115)
[2020-08-07] MEDS: Insulin Lispro 100 UNIT/ML 3 ML VIAL SUBCUT (11:37)
== END 2020-08-07 14:51 | disposition skilled nursing facility (03) | DRG 40 ==
LOC: HO.ED 12:14 → HO.IMC 08-04 07:38 → HO.EDOVER 08-04 11:56 → HO.IMC 08-04 11:56
PROVIDERS: Internal Medicine; Admitting Provider Physician Assistant Medical; Emergency Provider Emergency Medicine; PCP Internal Medicine Geriatric Medicine; Visit Provider Nurse Practitioner Acute Care
DX: G45.9 Transient cerebral ischemic attack, unspecified (principal); U07.1 COVID-19; T83.511A Infection and inflammatory reaction due to indwelling urethral catheter, initial encounter; N13.8 Other obstructive and reflux uropathy; N39.0 Urinary tract infection, site not specified; L97.419 Non-pressure chronic ulcer of right heel and midfoot with unspecified severity; E78.5 Hyperlipidemia, unspecified; N40.1 Benign prostatic hyperplasia with lower urinary tract symptoms; Z96.0 Presence of urogenital implants; Z89.512 Acquired absence of left leg below knee; H54.7 Unspecified visual loss; L89.892 Pressure ulcer of other site, stage 2; E11.621 Type 2 diabetes mellitus with foot ulcer; I65.23 Occlusion and stenosis of bilateral carotid arteries; E11.51 Type 2 diabetes mellitus with diabetic peripheral angiopathy without gangrene; Z99.3 Dependence on wheelchair; Z79.4 Long term (current) use of insulin; Z79.02 Long term (current) use of antithrombotics/antiplatelets; Z79.82 Long term (current) use of aspirin; Z79.891 Long term (current) use of opiate analgesic; Z79.899 Other long term (current) drug therapy
CPT/HCPCS: 36415; 70450; 70496; 70498; 70551; 71045; 73030; 80048; 80061; 81001; 81003; 82550; 82947; 84484; 85025; 85610; 85730; 87086; 87088; 87186; 87633; 87635; 93005; 96365; 96366; 96368; 97162; 97167; 99212; 99285; J0696; J1650; J3370; Q9967; U0003; U0005

== ENCOUNTER → 2020-09-06 10:13 | Outpatient (BNVA) | payer MEDICARE, SELFPAY | PROVIDERS: PCP Internal Medicine Geriatric Medicine; Referring Provider Internal Medicine Geriatric Medicine; Visit Provider Surgery | DX: L97.529 Non-pressure chronic ulcer of other part of left foot with unspecified severity (principal); E08.621 Diabetes mellitus due to underlying condition with foot ulcer; Z79.4 Long term (current) use of insulin | CPT/HCPCS: 99212 ==

== ENCOUNTER → 2020-09-19 13:05 | Outpatient (BNVA) | payer MEDICARE, SELFPAY | PROVIDERS: PCP Internal Medicine Geriatric Medicine; Visit Provider Urology | DX: N31.9 Neuromuscular dysfunction of bladder, unspecified (principal); E08.40 Diabetes mellitus due to underlying condition with diabetic neuropathy, unspecified | CPT/HCPCS: 99212 ==

== ENCOUNTER 2020-09-26 12:08 | Outpatient (REF) | payer MEDICARE, SELFPAY | END 2020-09-26 12:09 | disposition home or self-care (01) | LOC: HO.CT 12:08 | PROVIDERS: PCP Internal Medicine Geriatric Medicine; Visit Provider Urology | DX: Z13.89 Encounter for screening for other disorder (principal) ==

== ENCOUNTER → 2020-10-07 09:35 | Outpatient (BNVA) | payer MEDICARE, SELFPAY | PROVIDERS: PCP Internal Medicine Geriatric Medicine; Visit Provider Internal Medicine Gastroenterology | DX: D64.9 Anemia, unspecified (principal) | CPT/HCPCS: 99202 ==

== ENCOUNTER → 2020-10-18 08:11 | Outpatient (BNVA) | payer MEDICARE, SELFPAY | PROVIDERS: PCP Internal Medicine Geriatric Medicine; Visit Provider Surgery | DX: Z47.81 Encounter for orthopedic aftercare following surgical amputation (principal); E11.621 Type 2 diabetes mellitus with foot ulcer; L97.519 Non-pressure chronic ulcer of other part of right foot with unspecified severity; Z89.512 Acquired absence of left leg below knee | CPT/HCPCS: 11042; 99212 ==

== ENCOUNTER → 2020-11-21 11:16 | Outpatient (BNVA) | payer MEDICARE, SELFPAY | PROVIDERS: PCP Internal Medicine Geriatric Medicine; Visit Provider Surgery | DX: E11.621 Type 2 diabetes mellitus with foot ulcer (principal); E11.51 Type 2 diabetes mellitus with diabetic peripheral angiopathy without gangrene; E08.621 Diabetes mellitus due to underlying condition with foot ulcer; L97.419 Non-pressure chronic ulcer of right heel and midfoot with unspecified severity; L97.519 Non-pressure chronic ulcer of other part of right foot with unspecified severity | CPT/HCPCS: 11044; 99212 ==

== ENCOUNTER → 2020-12-24 09:50 | Outpatient (BNVA) | payer MEDICARE, SELFPAY | PROVIDERS: PCP Internal Medicine Geriatric Medicine; Visit Provider Surgery | DX: I73.9 Peripheral vascular disease, unspecified (principal); E08.621 Diabetes mellitus due to underlying condition with foot ulcer; L97.509 Non-pressure chronic ulcer of other part of unspecified foot with unspecified severity; Z89.512 Acquired absence of left leg below knee | CPT/HCPCS: 99212 ==

== ENCOUNTER → 2021-02-04 09:55 | Outpatient (BNVA) | payer MEDICARE, SELFPAY | PROVIDERS: PCP Internal Medicine Geriatric Medicine; Referring Provider Internal Medicine Geriatric Medicine; Visit Provider Surgery | DX: L97.519 Non-pressure chronic ulcer of other part of right foot with unspecified severity (principal); E08.621 Diabetes mellitus due to underlying condition with foot ulcer; Z89.512 Acquired absence of left leg below knee; Z99.3 Dependence on wheelchair | CPT/HCPCS: 99212 ==

== ENCOUNTER → 2021-03-06 09:25 | Outpatient (BNVA) | payer MEDICARE, SELFPAY | PROVIDERS: PCP Internal Medicine Geriatric Medicine; Referring Provider Internal Medicine Geriatric Medicine; Visit Provider Surgery | DX: L97.519 Non-pressure chronic ulcer of other part of right foot with unspecified severity (principal); E08.621 Diabetes mellitus due to underlying condition with foot ulcer; E08.51 Diabetes mellitus due to underlying condition with diabetic peripheral angiopathy without gangrene; Z89.512 Acquired absence of left leg below knee; Z99.3 Dependence on wheelchair; Z79.4 Long term (current) use of insulin | CPT/HCPCS: 99212 ==

== ENCOUNTER → 2021-04-08 09:09 | Outpatient (BNVA) | payer MEDICARE, SELFPAY | PROVIDERS: PCP Internal Medicine Geriatric Medicine; Referring Provider Internal Medicine Geriatric Medicine; Visit Provider Surgery | DX: L89.899 Pressure ulcer of other site, unspecified stage (principal); E08.621 Diabetes mellitus due to underlying condition with foot ulcer; I10 Essential (primary) hypertension; Z99.3 Dependence on wheelchair; Z89.512 Acquired absence of left leg below knee | CPT/HCPCS: 99212 ==

== ENCOUNTER → 2021-05-09 10:15 | Outpatient (BNVA) | payer MEDICARE, SELFPAY | PROVIDERS: PCP Internal Medicine Geriatric Medicine; Visit Provider Surgery | DX: L97.509 Non-pressure chronic ulcer of other part of unspecified foot with unspecified severity (principal); E08.621 Diabetes mellitus due to underlying condition with foot ulcer; Z89.512 Acquired absence of left leg below knee | CPT/HCPCS: 99212 ==

== ENCOUNTER 2021-09-25 16:53 | Inpatient (IN) | payer OTHER, SELFPAY ==
--- NOTE | ~2021-09-25 | XR_ITS ---
EXAMINATION: XR FOOT, RIGHT CLINICAL INFORMATION: Possible osteomyelitis COMPARISON: Right foot radiographs 05/02/2020 TECHNIQUE: AP, lateral, and oblique views of the right foot. FINDINGS: Status post prior partial amputation of the fifth ray to the proximal to mid shaft of the fifth metatarsal. Lucency suspicious for osteomyelitis and bone destruction of the fourth toe distal phalanx. Question of a small amount of adjacent soft tissue gas. Additional lucency in the distal portion of the third toe proximal phalanx, possibly osseous destructive change as well. Mild first MTP joint osteoarthritis is noted. Changes of advanced mid foot neuroarthropathy. Large posterior and plantar calcaneal spurs. Extensive vascular calcifications. XR/XR foot RT min 3V IMPRESSION: 1. Findings suspicious for acute osteomyelitis with bone destruction of the fourth distal phalanx and distal aspect of the third proximal phalanx. 2. Suggestion of small bubbles of soft tissue gas along the medial aspect of the third toe, possibly due to gas-forming infection.
--- NOTE | ~2021-09-25 | US_ITS ---
EXAMINATION: ULTRASOUND ARTERIAL DUPLEX LOWER EXTREMITY RIGHT CLINICAL INFORMATION: Right foot necrosis COMPARISON: Previous left leg exam February 2020 TECHNIQUE: Doppler color and grayscale evaluation of the arteries of the right lower extremity FINDINGS: There is atherosclerotic disease with vessel wall calcification. The right common femoral artery is patent. There is a narrowing of the right common femoral artery. There is slightly diminished peak systolic velocity measuring 60 cm/s and biphasic waveform. The right proximal profunda is patent. This demonstrates slightly decreased peak systolic velocity of 48 cm/s and biphasic waveform. The right superficial femoral artery is patent. This is not well visualized distally. There is some luminal narrowing demonstrated in the midportion. Right SFA peak systolic velocities measure 100, 88 and 89 cm/s proximally in the midportion and distally and demonstrate a biphasic waveform. The right popliteal artery is patent. This demonstrates a peak systolic velocity of 50 cm/s and abnormal monophasic waveform. The posterior tibial artery is severely diseased. This demonstrates a peak systolic velocity of 32 cm per sec and an abnormal monophasic waveform. US/US arterial duplex LE RT IMPRESSION: There is evidence of multilevel significant atherosclerotic disease greatest distally in the right popliteal and posterior tibial artery.
--- NOTE | 2021-09-25 18:12 | ED.GENADULT ---
HPI - General Adult General Chief complaint: General Medical Stated complaint: necrotic toe Time Seen by Provider: 09/25/21 17:05 Source: patient and EMS Mode of arrival: EMS Limitations: other (Dementia) History of Present Illness HPI narrative: Patient comes emergency room via EMS. Patient has had a necrotic toe for several months, today his son force him to come, Alberto Kimble who is the patient's healthcare proxy. Today, [facility] signed the form where it states the patient has no capacity to make his own decisions. Patient states that he does not want any treatment, refusing vitals, labs, IV. We are trying to get in touch with his patient's son Alberto, who is not taking of the phone despite multiple attempts. Patient refusing everything, keeps yelling that but will cure him Related Data Home Medications Medication Instructions Recorded Confirmed albuterol sulfate 90 mcg/actuation 2 puff PO Q4-6H PRN Shortness Of 01/01/20 03/06/21 aerosol inhaler Breath Or Wheezing clopidogrel 75 mg tablet 75 mg PO DAILY 01/01/20 03/06/21 glimepiride 1 mg tablet 1 mg PO DAILY 01/01/20 03/06/21 atorvastatin 80 mg tablet 80 mg PO DAILY 02/12/20 03/06/21 aspirin 81 mg tablet,delayed 81 mg PO DAILY 05/02/20 03/06/21 release finasteride 5 mg tablet 5 mg PO DAILY 05/02/20 03/06/21 melatonin 3 mg capsule 3 mg PO BEDTIME PRN BEDTIME 05/02/20 03/06/21 multivitamin (Daily-Casa) 1 tab PO DAILY 05/02/20 03/06/21 tamsulosin 0.4 mg capsule 0.4 mg PO BEDTIME 05/02/20 03/06/21 amlodipine 5 mg tablet 1 tab PO DAILY 06/04/20 03/06/21 gabapentin 100 mg capsule 1 cap PO DAILY 06/04/20 03/06/21 lactulose 10 gram/15 mL oral 15 ml PO DAILY 06/04/20 03/06/21 solution acetaminophen 325 mg capsule 650 mg PO QID PRN Pain 06/21/20 05/09/21 calcium carbonate 600 mg calcium 1,500 mg PO DAILY 06/21/20 03/06/21 (1,500 mg) tablet ascorbic acid (vitamin C) 500 mg 500 mg PO DAILY 08/03/20 03/06/21 tablet ferrous sulfate 325 mg (65 mg 325 mg PO DAILY 08/03/20 03/06/21 iron) tablet omeprazole 20 mg capsule,delayed 20 mg PO DAILY 08/03/20 03/06/21 release methocarbamol 500 mg tablet 500 mg PO BEDTIME 09/19/20 03/06/21 pen needle, diabetic 32 gauge x #50 ea 09/19/20 03/06/21 insulin aspart U-100 100 unit/mL subcut 02/04/21 03/06/21 (3 mL) subcutaneous pen (Novolog Flexpen U-100 Insulin aspart) Previous Rx's Medication Instructions Recorded insulin glargine 100 unit/mL (3 10 unit (0.1 mL) subcut BEDTIME #0 06/11/20 mL) subcutaneous pen (Lantus mL Solostar U-100 Insulin) oxycodone 5 mg tablet 5 mg PO Q4H PRN pain (scale score 06/11/20 7-10) #26 tabs Allergies Allergy/AdvReac Type Severity Reaction Status Date / Time No Known Allergies Allergy Verified 04/08/21 09:19 [No Known Allergies*] Review of Systems Review of Systems: Constitutional : No Weight loss, No Fever, No Chills, No Night Sweats, No Fatigue, No Malaise ENT/Mouth : No Hearing loss, No Ear Pain, No Nasal Congestion, No Sinus Pain, No Hoarseness, No sore throat, No Rhinorrhea, No Swallowing Difficulty Eyes: No Eye Pain, No Swelling, No Redness, No Foreign Body, No Discharge, No Vision Changes Cardiovascular : No Chest Pain, No SOB, No Dyspnea on Exertion, No Orthopnea, No Edema, No Palpitations Respiratory : No Cough, No Sputum, No Wheezing, No Smoke Exposure, No Dyspnea Gastrointestinal : No Nausea, No Vomiting, No Diarrhea, No Constipation, No abdominal Pain, No Hematochezia, No Melena Genitourinary : no irregular bleeding, No Dysuria, No Urinary Frequency, No Hematuria, No Urinary Incontinence, No Urgency, No Flank Pain, No Urinary Flow Changes, No Hesitancy Musculoskeletal : No joint pain, No Myalgias, No Joint Swelling Skin : Necrotic toe on the right foot, denies pain Neuro : No Weakness, No Numbness, No Paresthesias, No Loss of Consciousness, No Dizziness, No Headache Psych : No Anxiety/Panic, No Depression, No SI/HI/AH/VH, No Social Issues, Heme/Lymph: No Bruising, No Bleeding,No Lymphadenopathy Endocrine : No Polyuria, No Polydipsia, No Temperature Intolerance [facility] Past Medical History Medical History Anemia Arthritis Asthma 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 Candidiasis of penis Cholelithiasis Decubitus ulcer of right foot Diabetes mellitus, type 2 Diverticulosis Gaytan catheter in place Hiatal hernia Hydronephrosis Hyperlipidemia Hypertension PVD (peripheral vascular disease) Sepsis Severe sepsis Wheelchair dependence Surgical History H/O hernia repair Status post below-knee amputation of left lower extremity Social History Social History Household Members: Other 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 Housing: Apartment Do you presently have visiting nurse or other home services: No Alcohol intake: never Patient Tobacco Use Status: Never used Tobacco Second Hand Smoke Exposure: No Use of substances other than those prescribed or required for medical reasons: No Advance Directives: Yes Advance Directives on File: Yes Advance Directives Date on File: 09/25/21 service: No Current occupational status: retired Physical Exam ED Vital Signs: Vital Signs - 24 hr 09/25/21 18:31 09/25/21 20:00 09/25/21 22:00 Temperature 0 F L 98.1 F 97.7 F Pulse Rate 0 L 93 92 Respiratory Rate 0 L 20 19 Blood Pressure 00/00 L 185/81 H 128/68 Pulse Oximetry 0 L 97 97 Oxygen Delivery Method Room Air Room Air Room Air BMI result Body Mass Index 25.7 Const Other: Appearance: Alert. Oriented X1. No acute distress. Eyes: Pupils equal, round and reactive to light. ENT: Pharynx normal. Neck: Normal inspection. Neck supple. No lymph nodes noted. No crepitus CVS: Normal heart rate and rhythm. Pulses normal. Normal S1 and S2 Respiratory: No respiratory distress. Breath sounds normal. No Wheezing. No rales Abdomen: Soft and nontender. No rigidity. No distention. Skin: Skin warm and dry. Chronic venous stasis bilaterally, See extremity below Extremities: No lower extremity edema. Left BKA, Chronic venous stasis on the right foot, necrotic 4th toe on the right foot, no pain on palpation Neuro: Oriented X 3. No motor deficit. No sensory deficit. Moving all extremities. No slurred speech. CN 2 through 12 grossly intact Psych: calm, unwilling to accept any kind of treatment, states God will cure him Course Course Course Narrative: 18:23, we have been unable to reach the patient's healthcare proxy. So far patient is not willing to have any workup done, is not allowing us to take any vitals. Case Management is trying to help us reach the patient's healthcare proxy. Unfortunately, if the patient is not compliant and his treatment, he may have to be sedated to even get vitals and blood work, which we are trying to avoid 18:45: We were able to reach patient's healthcare proxy Alberto Kimble, who states that he is very concerned that his father may become septic, had infection will spread of his foot. Healthcare proxy states that if it is necessary, we may chemically and physically restrain the patient to do our workup, treatment. Also, patient's son states that if he needs an amputation, he is allowing us to do so. This conversation was witnessed by our shoe caser Melody and hospital feature writer John, as we were all in the loud speaker Patient received 2 mg IM of Ativan and 50 mg IM of Benadryl. Patient is still awake, alert, more relaxed. Patient is now compliant, accepted to have blood tests done an IV placed. Patient is getting fluids and antibiotics at this time. Foot x-ray does show osteomyelitis. Patient getting Zosyn and vancomycin. Sepsis is not suspected, white blood cell count and lactic acid within normal limits, blood pressure normal. I discussed the patient with Dr. Wiley, patient's son is aware that the patient will be admitted and likely need surgery. Medical Decision Making Lab Data Result diagrams: 09/25/21 21:49 09/25/21 21:49 Labs: Lab Results 09/25/21 09/25/21 09/25/21 Range/Units 21:49 21:49 21:49 WBC 5.6 (4.8-10.8) X10*3/uL RBC 3.91 L (4.60-5.80) X10*6/uL Hgb 11.3 L (14.0-18.0) g/dl Hct 34.7 L (42.0-52.0) % MCV 88.7 (80.0-98.0) fL MCH 28.9 (27.0-33.0) pg MCHC 32.6 (31.0-36.0) g/dl RDW 13.7 (11.0-16.0) % Plt Count 249 (160-400) X10*3/uL MPV 8.4 L (9.4-12.4) fL Immature Gran % (Auto) 0.5 H (0.0-0.4) % Neut % (Auto) 69.5 (45-73) % Lymph % (Auto) 16.3 L (20-40) % [place] % (Auto) 8.2 (2-11) % Eos % (Auto) 5.0 H (0-4) % Baso % (Auto) 0.5 (0-2) % Lymph # (Auto) 0.9 L (1.2-4.9) X10*3/uL [place] # (Auto) 0.5 (0.1-1.2) X10*3/uL Eos # (Auto) 0.3 (0.0-0.4) X10*3/uL Baso # (Auto) 0.0 (0.0-0.2) X10*3/uL Abs Immat Gran (auto) 0.03 (0.00-0.03) X10*3/uL Absolute Neuts (auto) 3.9 (2.0-8.3) x10*3/uL Absolute Nucleated RBC 0.000 (0.0-0.012) X10*3/uL Nucleated RBC % (auto) 0.0 (0.0-0.2) /100WBC PT 12.6 (10.0-13.1) SEC INR 1.1 (0.9-1.1) Sodium 137 (135-145) mmol/L Potassium 3.8 (3.3-5.1) mmol/L Chloride 103 (96-108) mmol/L Carbon Dioxide 26 (22-29) mmol/L Anion Gap 12 (12-20) BUN 29 H (9-16) mg/dL Creatinine 1.28 (0.5-1.4) mg/dL Estim Creat Clear Calc 40.4 Estimated GFR 54 Random Glucose 223 H D (60-115) mg/dL Lactic Acid (0.5-2.0) mmol/L Calcium 8.2 L (8.4-10.2) mg/dL Total Bilirubin 0.3 (0.0-1.0) mg/dL Direct Bilirubin 0.2 (0.0-0.5) mg/dL AST 11 (5-37) U/L ALT 8 (0-40) U/L Alkaline Phosphatase 107 (39-117) U/L Total Protein 6.7 (6.5-8.0) g/dL Albumin 3.4 L (3.5-5.0) g/dL COVID-19 (OCTAVIO) (Negative) COVID-19 Clin Com 09/25/21 09/25/21 Range/Units 21:49 21:49 WBC (4.8-10.8) X10*3/uL RBC (4.60-5.80) X10*6/uL Hgb (14.0-18.0) g/dl Hct (42.0-52.0) % MCV (80.0-98.0) fL MCH (27.0-33.0) pg MCHC (31.0-36.0) g/dl RDW (11.0-16.0) % Plt Count (160-400) X10*3/uL MPV (9.4-12.4) fL Immature Gran % (Auto) (0.0-0.4) % Neut % (Auto) (45-73) % Lymph % (Auto) (20-40) % [place] % (Auto) (2-11) % Eos % (Auto) (0-4) % Baso % (Auto) (0-2) % Lymph # (Auto) (1.2-4.9) X10*3/uL [place] # (Auto) (0.1-1.2) X10*3/uL Eos # (Auto) (0.0-0.4) X10*3/uL Baso # (Auto) (0.0-0.2) X10*3/uL Abs Immat Gran (auto) (0.00-0.03) X10*3/uL Absolute Neuts (auto) (2.0-8.3) x10*3/uL Absolute Nucleated RBC (0.0-0.012) X10*3/uL Nucleated RBC % (auto) (0.0-0.2) /100WBC PT (10.0-13.1) SEC INR (0.9-1.1) Sodium (135-145) mmol/L Potassium (3.3-5.1) mmol/L Chloride (96-108) mmol/L Carbon Dioxide (22-29) mmol/L Anion Gap (12-20) BUN (9-16) mg/dL Creatinine (0.5-1.4) mg/dL Estim Creat Clear Calc Estimated GFR Random Glucose (60-115) mg/dL Lactic Acid 0.7 (0.5-2.0) mmol/L Calcium (8.4-10.2) mg/dL Total Bilirubin (0.0-1.0) mg/dL Direct Bilirubin (0.0-0.5) mg/dL AST (5-37) U/L ALT (0-40) U/L Alkaline Phosphatase (39-117) U/L Total Protein (6.5-8.0) g/dL Albumin (3.5-5.0) g/dL COVID-19 (OCTAVIO) Negative (Negative) COVID-19 Clin Com See Note Imaging Data Foot x-ray: Radiologist's impression: FINDINGS: Status post prior partial amputation of the fifth ray to the proximal to mid shaft of the fifth metatarsal. Lucency suspicious for osteomyelitis and bone destruction of the fourth toe distal phalanx. Question of a small amount of adjacent soft tissue gas. Additional lucency in the distal portion of the third toe proximal phalanx, possibly osseous destructive change as well. Mild first MTP joint osteoarthritis is noted. Changes of advanced mid foot neuroarthropathy. Large posterior and plantar calcaneal spurs. Extensive vascular calcifications. XR/XR foot RT min 3V IMPRESSION: ? 1. Findings suspicious for acute osteomyelitis with bone destruction of the fourth distal phalanx and distal aspect of the third proximal phalanx. 2. Suggestion of small bubbles of soft tissue gas along the medial aspect of the third toe, possibly due to gas-forming infection. Critical Care Time Critical Care Time Critical Care Time: Yes Total Critical Care Time: 45 Attestation: I have personally provided critical care time. Time includes review of lab data, radiology results, discussion with consultants, and monitoring for potential decompensation. Intervention performed as documented. Discharge Plan Discharge Clinical Impression: Necrosis of toe, Osteomyelitis Patient Disposition: Admitted As Inpatient
[2021-09-25 18:31] VITALS: BP 00/00; PULSE 0; RESP 0; TEMP -17.7; TEMP 0; O2SAT 0; BMI 25.7
--- NOTE | 2021-09-25 18:48 | MHC.CM.ED ---
Addendum entered by Reina Tena 09/25/21 19:56: Retrun referral placed in [facility] to [facility]. Requested to follow for d/c. Addendum entered by Reina Tena 09/25/21 19:47: IMM 09/25. Mailed to HCP Alberto Kimble ([phone]). Addendum entered by Reina Tena 09/25/21 19:35: MOLST on file. Full code. HCP gave permission for all care in ED. SEE ED Note. Original Note: CM was asked by Dr. Sanchez to try and contact HCP on file. Dr. Sanchez tried to call and could not reach HCP. Pt is refusing all treatment. Came in by ambulance from [facility]. Upon review of paperwork, CM noted that the HCP has been invoked. Invoked today at [facility] by Dr. Ricky Krueger. HCP/son Alberto Kimble ([phone]).Message left. Attempted to call secondary contact, Rene Ramirez, but the contact information is not correct. Dr. Sanchez questioning CM if she can sedate patient to complete an assessment without HCP. CM called Aubrie Menjivar who suggested Dr. Sanchez called Myles A Tubing Supervisor for guidance. aware. CM called HCP/son again with informal waiter/waitress. Alberto answered telephone. Is [place] speaking only. Dr. Sanchez spoke with him at length about his father's medical condition. CM will follow for d/c needs.
[2021-09-25 20:00] VITALS: BP 185/81; PULSE 93; RESP 20; TEMP 36.7; O2SAT 97
[2021-09-25] MEDS: LORazepam 2 MG/ML VIAL 1 MG IM (20:50)
[2021-09-25] MEDS: diphenhydrAMINE HCL 50 MG/ML VIAL IM (20:50)
[2021-09-25 21:54] LABS: MANUAL DIFF FLAG NO
[2021-09-25 21:56] LABS: Basophils Percent Auto 0.5 % (0-2); Eosinophils Absolute Auto 0.3 X10*3/uL (0.0-0.4); Hematocrit 34.7 % (42.0-52.0); Hemoglobin 11.3 g/dl (14.0-18.0); Imm Gran Abs Auto 0.03 X10*3/uL (0.00-0.03); Imm Gran Pct Auto 0.5 % (0.0-0.4); Lymphocytes Absolute Auto 0.9 X10*3/uL (1.2-4.9); Lymphocytes Percent Auto 16.3 % (20-40); Mean Corpuscular HGB Conc 32.6 g/dl (31.0-36.0); Mean Corpuscular Hemoglobin 28.9 pg (27.0-33.0); Mean Corpuscular Volume 88.7 fL (80.0-98.0); Mean Platelet Volume 8.4 fL (9.4-12.4); Monocytes Absolute Auto 0.5 X10*3/uL (0.1-1.2); Monocytes Percent Auto 8.2 % (2-11); Neutrophils Absolute Auto 3.9 x10*3/uL (2.0-8.3); Neutrophils Percent Auto 69.5 % (45-73); Platelet Count 249 X10*3/uL (160-400); Red Blood Count 3.91 X10*6/uL (4.60-5.80); Red Cell Distribution Width 13.7 % (11.0-16.0); White Blood Count 5.6 X10*3/uL (4.8-10.8)
[2021-09-25 22:00] VITALS: BP 128/68; PULSE 92; RESP 19; TEMP 36.5; O2SAT 97
[2021-09-25 22:01] LABS: INTERNATIONAL NORM RATIO 1.1 (0.9-1.1); Prothrombin Time 12.6 SEC (10.0-13.1)
[2021-09-25 22:05] LABS: Lactic Acid 0.7 mmol/L (0.5-2.0)
[2021-09-25] MEDS: 0.9 % Sodium Chloride 1,000 ML 999 ML IVCONT (22:08)
[2021-09-25 22:09] LABS: Alanine Aminotransferase 8 U/L (0-40); Albumin Level 3.4 g/dL (3.5-5.0); Alkaline Phosphatase 107 U/L (39-117); Anion Gap 12 (12-20); Aspartate Amino Transferase 11 U/L (5-37); Bilirubin Direct 0.2 mg/dL (0.0-0.5); Bilirubin Total 0.3 mg/dL (0.0-1.0); Blood Urea Nitrogen 29 mg/dL (9-16); Calcium 8.2 mg/dL (8.4-10.2); Carbon Dioxide 26 mmol/L (22-29); Chloride 103 mmol/L (96-108); Creatinine Clr Calc Pharmacy 40.4; Estimated Glomerular Filt Rate 54; Glucose Random 223 mg/dL (60-115); Potassium 3.8 mmol/L (3.3-5.1); Sodium 137 mmol/L (135-145); Total Protein 6.7 g/dL (6.5-8.0)
[2021-09-25 22:18] LABS: COVID-19 Test Negative (Negative)
[2021-09-25] MEDS: Piperacillin Sodium/Tazobactam 3.375 GM in 0.9 % Sodium Chloride 50 ML IV (22:36)
[2021-09-25] MEDS: vancomycin HCL 1,000 MG, vancomycin HCL 750 MG in 0.9 % Sodium Chloride 500 ML 267.5 MG IV (23:00)
--- NOTE | 2021-09-25 23:53 | PM.IMHP ---
History of Present Illness Date of Service: 09/25/21 Chief Complaint: foot wound In Moroccan-speaking, history is obtained of with the help of city administrator This is a 75-year-old Moroccan-speaking only male with past medical history of asthma, BPH, HLD, HTN, PVD, with her dependent, history of CVA, diabetes, among others who presents to the hospital, due to necrotic toe for several months. Patient is alert and oriented to self and place. According to his son he has been refusing care, he has noticed a necrotic toe on the right foot what has refused to see a physician for it and finally his son for some to come to the ED today. Patient initially refused care, refused vitals as well as blood draws but once ED physician spoke to the son he reports that his father has now been deemed incompetent to make medical conditions and as his healthcare proxy he wants patient to receive full care against his will. At this time patient has become more agreeable and allowed for blood draws and vitals to be done. Patient is a poor historian at baseline and I am unable to receive much history on the nature of his necrotic right 4th toe. He otherwise denies any chest pain, no shortness of breath, no abdominal pain nausea or vomiting, no diarrhea constipation, no urinary symptoms and no lower extremity edema. Arrival to the ED patient noted to be hemodynamically stable with no significant abnormal vitals Labs are significant for WBC count of 5.6, hemoglobin of 11.3, BUN of 29, creatinine of 1.28 with a baseline of 0.9. Labs otherwise unremarkable Foot x-ray showed acute osteomyelitis with bone destruction of the 4th distal phalanx and distal aspect of the 3rd proximal phalanx. 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 Candidiasis of penis Cholelithiasis Decubitus ulcer of right foot Diabetes mellitus, type 2 Diverticulosis Gaytan catheter in place Hiatal hernia Hydronephrosis Hyperlipidemia Hypertension PVD (peripheral vascular disease) Sepsis Severe sepsis Wheelchair dependence Pertinent family history: Unable to obtain from patient Surgical History H/O hernia repair Status post below-knee amputation of left lower extremity Social History Household Members: Other 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 Housing: Apartment Do you presently have visiting nurse or other home services: No Alcohol intake: never Patient Tobacco Use Status: Never used Tobacco Second Hand Smoke Exposure: No Use of substances other than those prescribed or required for medical reasons: No Advance Directives: Yes Advance Directives on File: Yes Advance Directives Date on File: 09/25/21 service: No Current occupational status: retired Meds Allergies Allergy/AdvReac Type Severity Reaction Status Date / Time No Known Allergies Allergy Verified 04/08/21 09:19 [No Known Allergies*] Active Medications: Current Medications Acetaminophen (Acetaminophen 325 Mg Tablet) 650 mg PO Q6H PRN PRN Reason: Pain, Mild (Pain Scale 1-3) Docusate Sodium (Docusate Sodium 100 Mg Capsule) 100 mg PO DAILY PRN PRN Reason: Constipation Heparin Sodium (Porcine) (Heparin Sodium,Porcine 5,000 Unit/Ml Vial) 5,000 unit SUBCUT Q12H RENETTA Vancomycin HCl 1,000 mg/Vancomycin HCl 750 mg/ Sodium Chloride 535 mls @ 267.5 mls/hr IV ONCE ONE Stop: 09/26/21 00:59 Lactated Ringer's (Lr) 1,000 mls @ 80 mls/hr IVCONT .[id number] REPLACED BY [facility] Ondansetron HCl (Ondansetron Hcl 4 Mg/2 Ml Vial) 4 mg IVPUSH Q8H PRN PRN Reason: Nausea and Vomiting Pharmacy Consult (Consult Rx Vancomycin Dosing) 1 each MISCELLANE DAILY PRN PRN Reason: Consult order Sodium Chloride (0.9 % Sodium Chloride Flush 3 Ml Syringe) 3 ml IVFLUSH QSHIFT REPLACED BY [facility] Home Medications Medication Instructions Recorded Confirmed Last Taken Type albuterol sulfate 90 mcg/actuation 2 puff PO Q4-6H PRN Shortness Of 01/01/20 09/26/21 Unknown History aerosol inhaler Breath Or Wheezing clopidogrel 75 mg tablet 75 mg PO DAILY 01/01/20 09/26/21 05/01/20 History glimepiride 1 mg tablet 1 mg PO DAILY 01/01/20 09/26/21 05/01/20 History aspirin 81 mg tablet,delayed 81 mg PO DAILY 05/02/20 09/26/21 05/01/20 History release melatonin 3 mg capsule 3 mg PO BEDTIME PRN BEDTIME 05/02/20 09/26/21 05/01/20 History multivitamin (Daily-Casa) 1 tab PO DAILY 05/02/20 09/26/21 05/01/20 History gabapentin 100 mg capsule 1 cap PO DAILY 06/04/20 09/26/21 Unknown History acetaminophen 325 mg capsule 650 mg PO QID PRN Pain 06/21/20 09/26/21 Unknown History calcium carbonate 600 mg calcium 1,500 mg PO DAILY 06/21/20 09/26/21 Unknown History (1,500 mg) tablet ascorbic acid (vitamin C) 500 mg 500 mg PO DAILY 08/03/20 09/26/21 Unknown History tablet ferrous sulfate 325 mg (65 mg 325 mg PO DAILY 08/03/20 09/26/21 Unknown History iron) tablet omeprazole 20 mg capsule,delayed 20 mg PO DAILY 08/03/20 09/26/21 Unknown History release pen needle, diabetic 32 gauge x #50 ea 09/19/20 09/26/21 Unknown History Physical Exam Vital Signs and Narrative: Vital Signs: Last Vital Signs Temp 97.7 F 09/25/21 22:00 Pulse 92 09/25/21 22:00 Resp 19 09/25/21 22:00 BP 128/68 09/25/21 22:00 Pulse Ox 97 09/25/21 22:00 O2 Del Method 09/25/21 22:00 BMI result Body Mass Index 25.7 Const: General: cooperative and no acute distress Orientation/consciousness: patient oriented x3 Eyes: General: appearance normal, both eyes and all related structures Pupils: Equal, round and reactive pupils present Resp: Effort & Inspection: normal respiratory effort Auscultation: clear to auscultation bilaterally Cardio: Rate: regular rate Rhythm: regular rhythm GI: Palpation (GI): Soft to palpation Auscultation: normal bowel sounds Skin: General skin exam: no rashes or lesions noted Neuro: General: patient oriented x3 Cranial nerves: Yes Equal, round and reactive pupils present Cognition (Neuro): normal cognition Extrem: Other: Left below-knee amputation, right 5th toe necrosis Results Labs CBC and Chem 7: 09/25/21 21:49 09/25/21 21:49 Labs: Laboratory Results - last 24 hr 09/25/21 09/25/21 09/25/21 21:49 21:49 21:49 MCV 88.7 MCH 28.9 MCHC 32.6 RDW 13.7 Plt Count 249 MPV 8.4 L Immature Gran % (Auto) 0.5 H Neut % (Auto) 69.5 Lymph % (Auto) 16.3 L [place] % (Auto) 8.2 Eos % (Auto) 5.0 H Baso % (Auto) 0.5 Lymph # (Auto) 0.9 L [place] # (Auto) 0.5 Eos # (Auto) 0.3 Baso # (Auto) 0.0 Abs Immat Gran (auto) 0.03 Absolute Neuts (auto) 3.9 Absolute Nucleated RBC 0.000 Nucleated RBC % (auto) 0.0 PT 12.6 INR 1.1 Anion Gap 12 Estim Creat Clear Calc 40.4 Estimated GFR 54 Random Glucose 223 H D Lactic Acid Calcium 8.2 L Total Bilirubin 0.3 Direct Bilirubin 0.2 AST 11 ALT 8 Alkaline Phosphatase 107 Total Protein 6.7 Albumin 3.4 L COVID-19 (OCTAVIO) COVID-19 Appature 09/25/21 09/25/21 21:49 21:49 MCV MCH MCHC RDW Plt Count MPV Immature Gran % (Auto) Neut % (Auto) Lymph % (Auto) [place] % (Auto) Eos % (Auto) Baso % (Auto) Lymph # (Auto) [place] # (Auto) Eos # (Auto) Baso # (Auto) Abs Immat Gran (auto) Absolute Neuts (auto) Absolute Nucleated RBC Nucleated RBC % (auto) PT INR Anion Gap Estim Creat Clear Calc Estimated GFR Random Glucose Lactic Acid 0.7 Calcium Total Bilirubin Direct Bilirubin AST ALT Alkaline Phosphatase Total Protein Albumin COVID-19 (OCTAVIO) Negative COVID-19 Clin Com See Note Imaging Radiologist's Impressions: Impressions Foot X-Ray 09/25/21 18:44 IMPRESSION: 1. Findings suspicious for acute osteomyelitis with bone destruction of the fourth distal phalanx and distal aspect of the third proximal phalanx. 2. Suggestion of small bubbles of soft tissue gas along the medial aspect of the third toe, possibly due to gas-forming infection. Comment: no flow limiting stenosis Assessment and Plan (1) Necrosis of toe: Status: Acute (2) Osteomyelitis: Status: Acute (3) ENRIQUE (acute kidney injury): Status: Acute Plan 75-year-old male with past medical history of diabetes as well as PVD who presents to the hospital with necrotic right toe found to have osteomyelitis # osteomyelitis - x-ray of the foot showed acute osteomyelitis - no leukocytosis, afebrile - will treat with IV antibiotics - infectious disease consulted - surgical team consulted - arterial Dopplers done showed no significant stenosis # ENRIQUE - likely prerenal in the setting of dehydration/infection - will treat with IV fluid - follow BMP # diabetes - low-dose sliding scale insulin - diabetic diet # history of PVD - continue Plavix - no evidence of acute stenosis on arterial Dopplers DVT prophylaxis: Heparin subQ Given the acute osteomyelitis and need for IV antibiotics patient will be admitted for further management and monitoring and requires a minimum 2 night hospital stay Quality Stroke Does the patient have a stroke diagnosis?: No VTE Prior VTE?: No VTE Risk Level:: Medical - moderate - high VTE Device Contraindication: Treatment Not Indicated VTE Drug Contraindication: N/A - Med Ordered
[2021-09-26] VITALS (7 sets, daily range): BP systolic 136–175; BP diastolic 63–86; PULSE 74–97; RESP 12–18; TEMP 36.1–37; O2SAT 97–99
[2021-09-26 08:07] LABS: Glucose, Whole Blood 164 mg/dL (60-115)
[2021-09-26] MEDS: Ascorbic Acid 500 MG TABLET PO (08:45)
[2021-09-26] MEDS: Aspirin Enteric Coated 81 MG TABLET.DR PO (08:45)
[2021-09-26] MEDS: Insulin Lispro 100 UNIT/ML 3 ML VIAL SUBCUT (08:46)
--- NOTE | 2021-09-26 08:56 | PHA.MEDREC ---
Pharmacy Consult ? Medication Reconciliation Pharmacy has completed the medication reconciliation. Pt had list from facility; confirmed with pt's son Alberto that his rehab facility takes care of medications. Med rec done overnight by Dotty Elena did not have many of the medications that she confirmed; notified Dr. Moraes of this.
--- NOTE | 2021-09-26 09:06 | PC.NURSE ---
pt npo for surgery, changed and repositioned and needs are being met.
--- NOTE | 2021-09-26 11:56 | P.CONGS_ITS ---
History of Present Illness Consult details Consult date: 09/26/21 Reason for consult: wound care Narrative: 75-year-old gentleman who is a known vasculopath has had a prior left below-knee amputation. He presented to the hospital with a nonhealing 4th toe ulcer. He reports a began several weeks ago as he got the nail clot and that is when it started changing color. He now had increasing pain that is were brought him into the hospital yesterday. He has undergone ultrasound and he now presents for vascular evaluation. Review of Systems Review of Systems: Yes all other systems are reviewed and are negative Constitutional: Constitutional: Reports no additional constitutional complaints ENT: Reports Normal hearing present Cardiovascular: Cardiovascular: Denies chest pain, Denies chest pain at rest, Denies chest pain with activity and Denies pedal edema Respiratory: Respiratory: Denies cough Gastrointestinal: Gastrointestinal: Denies abdominal pain Musculoskeletal: Musculoskeletal: Denies abnormal gait, Denies muscle cramps and Denies radiating pain into limb Integumentary/Breasts: Skin/Breast: Denies skin ulcer and Denies wounds Neurologic: Reports Normal hearing present and Denies abnormal gait Psychiatric: Psychiatric: Reports no additional psychiatric complaints [facility] Past Medical History Medical History Anemia Arthritis Asthma 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 Candidiasis of penis Cholelithiasis Decubitus ulcer of right foot Diabetes mellitus, type 2 Diverticulosis Gaytan catheter in place Hiatal hernia Hydronephrosis Hyperlipidemia Hypertension PVD (peripheral vascular disease) Sepsis Severe sepsis Wheelchair dependence Surgical History Surgical History H/O hernia repair Status post below-knee amputation of left lower extremity Social History Social History Household Members: Other 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 Housing: Apartment Do you presently have visiting nurse or other home services: No Alcohol intake: never Patient Tobacco Use Status: Never used Tobacco Second Hand Smoke Exposure: No Use of substances other than those prescribed or required for medical reasons: No Advance Directives: Yes Advance Directives on File: Yes Advance Directives Date on File: 09/25/21 service: No Current occupational status: retired Meds Allergies Allergy/AdvReac Type Severity Reaction Status Date / Time No Known Allergies Allergy Verified 04/08/21 09:19 [No Known Allergies*] Active Medications: Current Medications Acetaminophen (Acetaminophen 325 Mg Tablet) 650 mg PO Q6H PRN PRN Reason: Pain, Mild (Pain Scale 1-3) Albuterol Sulfate (Albuterol Sulfate 90 Mcg 8 Gm Inhaler) 2 puff INHALE Q4H PRN PRN Reason: Shortness Of Breath Or Wheezing Ascorbic Acid (Ascorbic Acid 500 Mg Tablet) 500 mg PO DAILY [facility] Last Admin: 09/26/21 08:45 Dose: 500 mg Aspirin (Aspirin Enteric Coated 81 Mg Tablet.Dr) 81 mg PO DAILY [facility] Last Admin: 09/26/21 08:45 Dose: 81 mg Calcium Carbonate (Calcium Carbonate 500 Mg Tablet) 1,500 mg PO DAILY [facility] Last Admin: 09/26/21 09:23 Dose: Not Given Dextrose (Dextrose 50 % 25 Gm/50 Ml Syringe) 25 gm IVPUSH Q15M PRN; Protocol PRN Reason: per Hypoglycemia Standing Ord. Docusate Sodium (Docusate Sodium 100 Mg Capsule) 100 mg PO DAILY PRN PRN Reason: Constipation Glucose (Glucose Gel 15 Gm Gel..Gram.) 15 gm PO Q15M PRN; Protocol PRN Reason: per Hypoglycemia Standing Ord. Heparin Sodium (Porcine) (Heparin Sodium,Porcine 5,000 Unit/Ml Vial) 5,000 unit SUBCUT 0700,1900 [facility] Last Admin: 09/26/21 09:05 Dose: Not Given Lactated Ringer's (Lr) 1,000 mls @ 80 mls/hr IVCONT .[id number] [facility] Last Admin: 09/25/21 23:45 Dose: Not Given Insulin Glargine (Insulin Glargine,Hum.Rec.Anlog 100 Unit/Ml 10 Ml Vial) 12 unit SUBCUT BEDTIME [facility] Insulin Human Lispro (Insulin Lispro 100 Unit/Ml 3 Ml Vial) 0.1 - 10 unit SUBCUT QIDACHS [facility]; Protocol Last Admin: 09/26/21 08:46 Dose: 2 unit Ondansetron HCl (Ondansetron Hcl 4 Mg/2 Ml Vial) 4 mg IVPUSH Q8H PRN PRN Reason: Nausea and Vomiting Pharmacy Consult (Consult Rx Vancomycin Dosing) 1 each MISCELLANE DAILY PRN PRN Reason: Consult order Sodium Chloride (0.9 % Sodium Chloride Flush 3 Ml Syringe) 3 ml IVFLUSH QSHIFT [facility] Last Admin: 09/26/21 09:46 Dose: Not Given Home Medications Medication Instructions Recorded Confirmed Last Taken Type acetaminophen 325 mg capsule 650 mg PO QID PRN Pain 06/21/20 09/26/21 09/01/21 History pen needle, diabetic 32 gauge x #50 ea 09/19/20 09/26/21 Unknown History insulin aspart U-100 100 unit/mL See Protocol subcut TIDAC 09/26/21 09/26/21 09/25/21 History (3 mL) subcutaneous pen (Novolog Flexpen U-100 Insulin aspart) insulin glargine 100 unit/mL (3 12 unit subcut BEDTIME 09/26/21 09/26/21 09/24/21 History mL) subcutaneous pen (Lantus Solostar U-100 Insulin) levofloxacin 500 mg tablet 1 tab PO DAILY 09/26/21 09/26/21 09/24/21 History Physical Exam Vital Signs: Vital Signs: Last Vital Signs Temp 97.9 F 09/26/21 11:05 Pulse 86 09/26/21 11:05 Resp 12 09/26/21 11:05 BP 154/81 H 09/26/21 11:05 Pulse Ox 99 09/26/21 11:05 O2 Del Method 09/26/21 11:05 BMI result Body Mass Index 25.7 Const: General: cooperative, healthy appearing and comfortable Orientation/consciousness: oriented to person, oriented to place and oriented to time HEENT: Head: Yes normal to inspection Neck: Neck: Yes normal visual inspection Carotids: no bruits Chest: Chest palpation & inspection: normal inspection of the chest Resp: Effort & Inspection: normal respiratory effort and able to speak in complete sentences Auscultation: clear to auscultation bilaterally, no crackles, no rales, no rhonchi and no wheezes Cardio: Rate: regular rate Rhythm: regular rhythm Heart sounds: S1 normal heart sound present and S2 normal heart sound present Bruits: no carotid bruits Peripheral pulses: dorsalis pedis present (Right side DP signal) GI: Inspection: Yes normal to inspection Skin: Wounds: amputation site (Left healed) and wounds noted (Right 4th toe) Hair: normal Neuro: General: oriented to person, oriented to place and oriented to time Cranial nerves: Yes CN's II-XII intact bilaterally and Yes Normal hearing present Cognition (Neuro): normal cognition Motor exam (neuro): 5/5 motor strength present throughout Extrem: Other: venous exam: No significant superficial varicosities or spider telangiectasias, minimal edema General: No clubbing, No cyanosis and No edema Psych: Appearance: grossly normal Mental Status: mental status grossly normal Speech and movement: Normal speech and movement present Results Labs Result diagrams: 09/25/21 21:49 09/25/21 21:49 Labs: Abnormal lab results 09/25/21 09/25/21 09/26/21 Range/Units 21:49 21:49 07:56 RBC 3.91 L (4.60-5.80) X10*6/uL Hgb 11.3 L (14.0-18.0) g/dl Hct 34.7 L (42.0-52.0) % MPV 8.4 L (9.4-12.4) fL Immature Gran % (Auto) 0.5 H (0.0-0.4) % Lymph % (Auto) 16.3 L (20-40) % Eos % (Auto) 5.0 H (0-4) % Lymph # (Auto) 0.9 L (1.2-4.9) X10*3/uL BUN 29 H (9-16) mg/dL POC Glucose 164 H (60-115) mg/dL Random Glucose 223 H D (60-115) mg/dL Calcium 8.2 L (8.4-10.2) mg/dL Albumin 3.4 L (3.5-5.0) g/dL Short CBC 09/25/21 Range/Units 21:49 WBC 5.6 (4.8-10.8) X10*3/uL Hgb 11.3 L (14.0-18.0) g/dl Hct 34.7 L (42.0-52.0) % Plt Count 249 (160-400) X10*3/uL BMP 09/25/21 21:49 Sodium 137 Potassium 3.8 Chloride 103 Carbon Dioxide 26 BUN 29 H Creatinine 1.28 Calcium 8.2 L Liver Function 09/25/21 Range/Units 21:49 Total Bilirubin 0.3 (0.0-1.0) mg/dL Direct Bilirubin 0.2 (0.0-0.5) mg/dL AST 11 (5-37) U/L ALT 8 (0-40) U/L Alkaline Phosphatase 107 (39-117) U/L Albumin 3.4 L (3.5-5.0) g/dL All other labs normal. Assessment and Plan (1) PAD (peripheral artery disease): Status: Acute Plan In short patient has peripheral vascular disease. Arterial ultrasound reviewed and it appears that he has popliteal and below-knee disease. He will require peripheral angiogram. This was discussed in detail with the patient with second baller present. He is in agreement and would like to move forward. He will need antibiotic therapy for underlying osteomyelitis. In addition he is refusing amputation of any sort. We will schedule for early next week for peripheral angiogram. Thank you for allowing us to assist in his care. If there are any questions or concerns please do not hesitate to contact us. Procedures Date of Service Date of Service: 09/26/21
[2021-09-26 12:36] LABS: Glucose, Whole Blood 154 mg/dL (60-115)
[2021-09-26] MEDS: Lactated Ringers 1,000 ML 80 ML IVCONT (12:52)
--- NOTE | 2021-09-26 13:02 | PM.CNGS ---
History of Present Illness Consult details Consult date: 09/26/21 Narrative: 75-year-old male with multiple medical problems including diabetes, history of CVA, peripheral vascular disease, hypertension, brought to the ER by the family because of what was described as a ?necrotic 4th toe? on the right. Apparently has had discoloration this area for a while now but has diffuse to go to the ER until was convinced yesterday. He has a history of a BKA on the left last April, with Dr. Yin. He had debridement of ulcers on the right foot on the malleolar aspect as well and the 5th toe at that time as well. The patient answers questions well but does not appear to be a good historian. Apparently, there were issues with his competence as well with decision making. 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 Candidiasis of penis Cholelithiasis Decubitus ulcer of right foot Diabetes mellitus, type 2 Diverticulosis Gayt[place] catheter in place Hiatal hernia Hydronephrosis Hyperlipidemia Hypertension PVD (peripheral vascular disease) Sepsis Severe sepsis Wheelchair dependence Surgical History Surgical History H/O hernia repair Status post below-knee amputation of left lower extremity Social History Social History Household Members: Other 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 Housing: Apartment Do you presently have visiting nurse or other home services: No Alcohol intake: never Patient Tobacco Use Status: Never used Tobacco Second Hand Smoke Exposure: No Use of substances other than those prescribed or required for medical reasons: No Advance Directives: Yes Advance Directives on File: Yes Advance Directives Date on File: 09/25/21 service: No Current occupational status: retired Meds Allergies Allergy/AdvReac Type Severity Reaction Status Date / Time No Known Allergies Allergy Verified 04/08/21 09:19 [No Known Allergies*] Active Medications: Current Medications Acetaminophen (Acetaminophen 325 Mg Tablet) 650 mg PO Q6H PRN PRN Reason: Pain, Mild (Pain Scale 1-3) Albuterol Sulfate (Albuterol Sulfate 90 Mcg 8 Gm Inhaler) 2 puff INHALE Q4H PRN PRN Reason: Shortness Of Breath Or Wheezing Ascorbic Acid (Ascorbic Acid 500 Mg Tablet) 500 mg PO DAILY [facility] Last Admin: 09/26/21 08:45 Dose: 500 mg Aspirin (Aspirin Enteric Coated 81 Mg Tablet.Dr) 81 mg PO DAILY [facility] Last Admin: 09/26/21 08:45 Dose: 81 mg Calcium Carbonate (Calcium Carbonate 500 Mg Tablet) 1,500 mg PO DAILY [facility] Last Admin: 09/26/21 09:23 Dose: Not Given Dextrose (Dextrose 50 % 25 Gm/50 Ml Syringe) 25 gm IVPUSH Q15M PRN; Protocol PRN Reason: per Hypoglycemia Standing Ord. Docusate Sodium (Docusate Sodium 100 Mg Capsule) 100 mg PO DAILY PRN PRN Reason: Constipation Glucose (Glucose Gel 15 Gm Gel..Gram.) 15 gm PO Q15M PRN; Protocol PRN Reason: per Hypoglycemia Standing Ord. Heparin Sodium (Porcine) (Heparin Sodium,Porcine 5,000 Unit/Ml Vial) 5,000 unit SUBCUT 0700,1900 [facility] Last Admin: 09/26/21 09:05 Dose: Not Given Lactated Ringer's (Lr) 1,000 mls @ 80 mls/hr IVCONT .[id number] [facility] Last Admin: 09/26/21 12:52 Dose: 80 mls/hr Insulin Glargine (Insulin Glargine,Hum.Rec.Anlog 100 Unit/Ml 10 Ml Vial) 12 unit SUBCUT BEDTIME [facility] Insulin Human Lispro (Insulin Lispro 100 Unit/Ml 3 Ml Vial) 0.1 - 10 unit SUBCUT QIDACHS [facility]; Protocol Last Admin: 09/26/21 08:46 Dose: 2 unit Ondansetron HCl (Ondansetron Hcl 4 Mg/2 Ml Vial) 4 mg IVPUSH Q8H PRN PRN Reason: Nausea and Vomiting Pharmacy Consult (Consult Rx Vancomycin Dosing) 1 each MISCELLANE DAILY PRN PRN Reason: Consult order Sodium Chloride (0.9 % Sodium Chloride Flush 3 Ml Syringe) 3 ml IVFLUSH QSHIFT [facility] Last Admin: 09/26/21 09:46 Dose: Not Given Home Medications Medication Instructions Recorded Confirmed Last Taken Type acetaminophen 325 mg capsule 650 mg PO QID PRN Pain 06/21/20 09/26/21 09/01/21 History pen needle, diabetic 32 gauge x #50 ea 09/19/20 09/26/21 Unknown History insulin aspart U-100 100 unit/mL See Protocol subcut TIDAC 09/26/21 09/26/21 09/25/21 History (3 mL) subcutaneous pen (Novolog Flexpen U-100 Insulin aspart) insulin glargine 100 unit/mL (3 12 unit subcut BEDTIME 09/26/21 09/26/21 09/24/21 History mL) subcutaneous pen (Lantus Solostar U-100 Insulin) levofloxacin 500 mg tablet 1 tab PO DAILY 09/26/21 09/26/21 09/24/21 History Physical Exam Vital Signs: Vital Signs: Last Vital Signs Temp 97.9 F 09/26/21 11:05 Pulse 86 09/26/21 11:05 Resp 12 09/26/21 11:05 BP 154/81 H 09/26/21 11:05 Pulse Ox 99 09/26/21 11:05 O2 Del Method 09/26/21 11:05 BMI result Body Mass Index 25.7 Const: General: comfortable and no acute distress Resp: Effort & Inspection: normal respiratory effort Cardio: Rate: regular rate GI: Palpation (GI): Soft to palpation and nontender Extrem: Other: BKA on the left; right foot ulcers on the mediolateral aspect of the 4th toe, eschar on the lateral aspect; appears to have chronic trophic changes of the right foot Results Labs Result diagrams: 09/25/21 21:49 09/25/21 21:49 Labs: Abnormal lab results 09/25/21 09/25/21 09/26/21 Range/Units 21:49 21:49 07:56 RBC 3.91 L (4.60-5.80) X10*6/uL Hgb 11.3 L (14.0-18.0) g/dl Hct 34.7 L (42.0-52.0) % MPV 8.4 L (9.4-12.4) fL Immature Gran % (Auto) 0.5 H (0.0-0.4) % Lymph % (Auto) 16.3 L (20-40) % Eos % (Auto) 5.0 H (0-4) % Lymph # (Auto) 0.9 L (1.2-4.9) X10*3/uL BUN 29 H (9-16) mg/dL POC Glucose 164 H (60-115) mg/dL Random Glucose 223 H D (60-115) mg/dL Calcium 8.2 L (8.4-10.2) mg/dL Albumin 3.4 L (3.5-5.0) g/dL 09/26/21 Range/Units 12:33 RBC (4.60-5.80) X10*6/uL Hgb (14.0-18.0) g/dl Hct (42.0-52.0) % MPV (9.4-12.4) fL Immature Gran % (Auto) (0.0-0.4) % Lymph % (Auto) (20-40) % Eos % (Auto) (0-4) % Lymph # (Auto) (1.2-4.9) X10*3/uL BUN (9-16) mg/dL POC Glucose 154 H (60-115) mg/dL Random Glucose (60-115) mg/dL Calcium (8.4-10.2) mg/dL Albumin (3.5-5.0) g/dL Short CBC 09/25/21 Range/Units 21:49 WBC 5.6 (4.8-10.8) X10*3/uL Hgb 11.3 L (14.0-18.0) g/dl Hct 34.7 L (42.0-52.0) % Plt Count 249 (160-400) X10*3/uL BMP 09/25/21 21:49 Sodium 137 Potassium 3.8 Chloride 103 Carbon Dioxide 26 BUN 29 H Creatinine 1.28 Calcium 8.2 L Liver Function 09/25/21 Range/Units 21:49 Total Bilirubin 0.3 (0.0-1.0) mg/dL Direct Bilirubin 0.2 (0.0-0.5) mg/dL AST 11 (5-37) U/L ALT 8 (0-40) U/L Alkaline Phosphatase 107 (39-117) U/L Albumin 3.4 L (3.5-5.0) g/dL All other labs normal. Assessment and Plan (1) Osteomyelitis: Status: Acute He has ulceration on his 4th toe as described above on the right. He has osteomyelitis on the phalanges of the toe suggested by the x-ray. I had a long discussion with him about options of amputation versus IV antibiotic treatment although this will be unlikely to provide lasting healing. He says that he wants to save the toe if possible. He has apparently been seen by Dr. Anderson vascular surgery and an angiogram is being planned. I will therefore defer the rest of his management to vascular surgery with Dr. Anderson. Procedures Date of Service Date of Service: 09/26/21
--- NOTE | 2021-09-26 13:56 | P.CNID_ITS ---
History of Present Illness Data of Consult Service Date: 09/26/21 Requesting physician: Keke Moraes Primary Care Provider: Maxime Fernandez MD HPI Reason for consult: right foot infection He presents with family for necrotic toe for month or more apparently. He has blackened toe area. He has no fever or chills. He is getting workup including angiogram. 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 Candidiasis of penis Cholelithiasis Decubitus ulcer of right foot Diabetes mellitus, type 2 Diverticulosis Gaytan catheter in place Hiatal hernia Hydronephrosis Hyperlipidemia Hypertension PVD (peripheral vascular disease) Sepsis Severe sepsis Wheelchair dependence Family History Family history: reviewed and not pertinent Surgical History Surgical History H/O hernia repair Status post below-knee amputation of left lower extremity Social History Social History 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 Housing: Apartment Do you presently have visiting nurse or other home services: No Alcohol intake: never Patient Tobacco Use Status: Never used Tobacco Second Hand Smoke Exposure: No Use of substances other than those prescribed or required for medical reasons: No Advance Directives: Yes Advance Directives on File: Yes Advance Directives Date on File: 09/25/21 service: No Current occupational status: retired Meds Allergies Allergy/AdvReac Type Severity Reaction Status Date / Time No Known Allergies Allergy Verified 04/08/21 09:19 [No Known Allergies*] Active Medications: Current Medications Acetaminophen (Acetaminophen 325 Mg Tablet) 650 mg PO Q6H PRN PRN Reason: Pain, Mild (Pain Scale 1-3) Albuterol Sulfate (Albuterol Sulfate 90 Mcg 8 Gm Inhaler) 2 puff INHALE Q4H PRN PRN Reason: Shortness Of Breath Or Wheezing Ascorbic Acid (Ascorbic Acid 500 Mg Tablet) 500 mg PO DAILY [facility] Last Admin: 09/26/21 08:45 Dose: 500 mg Aspirin (Aspirin Enteric Coated 81 Mg Tablet.Dr) 81 mg PO DAILY [facility] Last Admin: 09/26/21 08:45 Dose: 81 mg Calcium Carbonate (Calcium Carbonate 500 Mg Tablet) 1,500 mg PO DAILY [facility] Last Admin: 09/26/21 09:23 Dose: Not Given Dextrose (Dextrose 50 % 25 Gm/50 Ml Syringe) 25 gm IVPUSH Q15M PRN; Protocol PRN Reason: per Hypoglycemia Standing Ord. Docusate Sodium (Docusate Sodium 100 Mg Capsule) 100 mg PO DAILY PRN PRN Reason: Constipation Glucose (Glucose Gel 15 Gm Gel..Gram.) 15 gm PO Q15M PRN; Protocol PRN Reason: per Hypoglycemia Standing Ord. Heparin Sodium (Porcine) (Heparin Sodium,Porcine 5,000 Unit/Ml Vial) 5,000 unit SUBCUT 0700,1900 [facility] Last Admin: 09/26/21 09:05 Dose: Not Given Lactated Ringer's (Lr) 1,000 mls @ 80 mls/hr IVCONT .[id number] [facility] Last Admin: 09/26/21 12:52 Dose: 80 mls/hr Insulin Glargine (Insulin Glargine,Hum.Rec.Anlog 100 Unit/Ml 10 Ml Vial) 12 unit SUBCUT BEDTIME [facility] Insulin Human Lispro (Insulin Lispro 100 Unit/Ml 3 Ml Vial) 0.1 - 10 unit SUBCUT QIDACHS [facility]; Protocol Last Admin: 09/26/21 08:46 Dose: 2 unit Ondansetron HCl (Ondansetron Hcl 4 Mg/2 Ml Vial) 4 mg IVPUSH Q8H PRN PRN Reason: Nausea and Vomiting Pharmacy Consult (Consult Rx Vancomycin Dosing) 1 each MISCELLANE DAILY PRN PRN Reason: Consult order Sodium Chloride (0.9 % Sodium Chloride Flush 3 Ml Syringe) 3 ml IVFLUSH QSHIFT [facility] Last Admin: 09/26/21 09:46 Dose: Not Given Home Medications Medication Instructions Recorded Confirmed Last Taken Type acetaminophen 325 mg capsule 650 mg PO QID PRN Pain 06/21/20 09/26/21 09/01/21 History pen needle, diabetic 32 gauge x #50 ea 09/19/20 09/26/21 Unknown History insulin aspart U-100 100 unit/mL See Protocol subcut TIDAC 09/26/21 09/26/21 09/25/21 History (3 mL) subcutaneous pen (Novolog Flexpen U-100 Insulin aspart) insulin glargine 100 unit/mL (3 12 unit subcut BEDTIME 09/26/21 09/26/21 09/24/21 History mL) subcutaneous pen (Lantus Solostar U-100 Insulin) levofloxacin 500 mg tablet 1 tab PO DAILY 09/26/21 09/26/21 09/24/21 History Physical Exam Vital Signs: Vital Signs: Last Vital Signs Temp 97.9 F 09/26/21 11:05 Pulse 86 09/26/21 11:05 Resp 12 09/26/21 11:05 BP 154/81 H 09/26/21 11:05 Pulse Ox 99 09/26/21 11:05 O2 Del Method 09/26/21 11:05 BMI result Body Mass Index 25.7 Const: General: awake HEENT: Head: Yes normal to inspection Mouth: Normal oral and palatal mucosa present Eyes: General: appearance normal, both eyes and all related structures Pupi ls: Equal, round and reactive pupils present Resp: Effort & Inspection: normal respiratory effort Cardio: Rate: regular rate Rhythm: regular rhythm GI: Auscultation: normal bowel sounds Neuro: Cranial nerves: Yes Equal, round and reactive pupils present Extrem: Other: right fourth toe dark probable neuropathy feet left BKA Results Labs CBC & Chem 7: 09/25/21 21:49 09/25/21 21:49 Labs: Short CBC 09/25/21 Range/Units 21:49 WBC 5.6 (4.8-10.8) X10*3/uL Hgb 11.3 L (14.0-18.0) g/dl Hct 34.7 L (42.0-52.0) % Plt Count 249 (160-400) X10*3/uL BMP 09/25/21 21:49 Sodium 137 Potassium 3.8 Chloride 103 Carbon Dioxide 26 BUN 29 H Creatinine 1.28 Calcium 8.2 L Liver Function 09/25/21 Range/Units 21:49 Total Bilirubin 0.3 (0.0-1.0) mg/dL Direct Bilirubin 0.2 (0.0-0.5) mg/dL AST 11 (5-37) U/L ALT 8 (0-40) U/L Alkaline Phosphatase 107 (39-117) U/L Albumin 3.4 L (3.5-5.0) g/dL Assessment and Plan (1) PAD (peripheral artery disease): Status: Acute (2) Necrosis of toe: Status: Acute (3) Osteomyelitis: Status: Acute He has foot infection,necrotic fourth toe infection He may have anerobes,gram negative,gram positive. Plan Continue Piperacillin/tazobactam and Vancomycin Amputation would be curative. Antibiotics may be suppressive Family will decide.
--- NOTE | 2021-09-26 17:17 | P.PNIM_ITS ---
Subjective Subjective Date of Service: 09/26/21 Interval History: toe infection/necrosis Review of Systems Mild pain in the foot otherwise denies any chest pain or shortness of breath or abdominal pain or fever chills. Physical Exam Vital Signs: Vital Signs: Last Vital Signs Temp 97.7 F 09/26/21 15:29 Pulse 93 09/26/21 15:29 Resp 16 09/26/21 15:29 BP 165/82 H 09/26/21 15:29 Pulse Ox 97 09/26/21 15:29 O2 Del Method 09/26/21 15:29 BMI result Body Mass Index 25.7 Appearance: Alert.? Oriented X3.? not in distress.?. cvs: rrr, [id number] , no murmur res: clear to auscultation ,no rhonchii or wheezing abd: no rebound or guarding ,nt, bs present. ext pulses present , no cyanosis , left BKA, right-foot and toe unchanged (please see as per H&P.) neuro: axo3 , follows command, moves it moves extremities Objective Data Active Medications Acetaminophen (Acetaminophen 325 Mg Tablet) 650 mg PO Q6H PRN PRN Reason: Pain, Mild (Pain Scale 1-3) Albuterol Sulfate (Albuterol Sulfate 90 Mcg 8 Gm Inhaler) 2 puff INHALE Q4H PRN PRN Reason: Shortness Of Breath Or Wheezing Ascorbic Acid (Ascorbic Acid 500 Mg Tablet) 500 mg PO DAILY [facility] Last Admin: 09/26/21 08:45 Dose: 500 mg Documented By: MIC Aspirin (Aspirin Enteric Coated 81 Mg Tablet.) 81 mg PO DAILY [facility] Last Admin: 09/26/21 08:45 Dose: 81 mg Documented By: MIC Calcium Carbonate (Calcium Carbonate 500 Mg Tablet) 1,500 mg PO DAILY [facility] Last Admin: 09/26/21 09:23 Dose: Not Given Documented By: MIC Non-Admin Reason: NPO Clopidogrel Bisulfate (Clopidogrel Bisulfate 75 Mg Tablet) 75 mg PO DAILY [facility] Dextrose (Dextrose 50 % 25 Gm/50 Ml Syringe) 25 gm IVPUSH Q15M PRN; Protocol PRN Reason: per Hypoglycemia Standing Ord. Docusate Sodium (Docusate Sodium 100 Mg Capsule) 100 mg PO DAILY PRN PRN Reason: Constipation Glucose (Glucose Gel 15 Gm Gel..Gram.) 15 gm PO Q15M PRN; Protocol PRN Reason: per Hypoglycemia Standing Ord. Heparin Sodium (Porcine) (Heparin Sodium,Porcine 5,000 Unit/Ml Vial) 5,000 unit SUBCUT 0700,1900 [facility] Last Admin: 09/26/21 09:05 Dose: Not Given Documented By: MIC Non-Admin Reason: See Note Lactated Ringer's (Lr) 1,000 mls @ 80 mls/hr IVCONT .[id number] [facility] Last Admin: 09/26/21 12:52 Dose: 80 mls/hr Documented By: MIC Insulin Glargine (Insulin Glargine,Hum.Rec.Anlog 100 Unit/Ml 10 Ml Vial) 12 unit SUBCUT BEDTIME [facility] Insulin Human Lispro (Insulin Lispro 100 Unit/Ml 3 Ml Vial) 0.1 - 10 unit SUBCUT QIDACHS [facility]; Protocol Last Admin: 09/26/21 08:46 Dose: 2 unit Documented By: MIC Ondansetron HCl (Ondansetron Hcl 4 Mg/2 Ml Vial) 4 mg IVPUSH Q8H PRN PRN Reason: Nausea and Vomiting Pharmacy Consult (Consult Rx Vancomycin Dosing) 1 each MISCELLANE DAILY PRN PRN Reason: Consult order Sodium Chloride (0.9 % Sodium Chloride Flush 3 Ml Syringe) 3 ml IVFLUSH QSHIFT [facility] Last Admin: 09/26/21 15:11 Dose: Not Given Documented By: ALEN Non-Admin Reason: Med Not Available Labs CBC & Chem 7: 09/25/21 21:49 09/25/21 21:49 Labs: Laboratory Results - last 24 hr 09/25/21 09/25/21 09/25/21 21:49 21:49 21:49 MCV 88.7 MCH 28.9 MCHC 32.6 RDW 13.7 Plt Count 249 MPV 8.4 L Immature Gran % (Auto) 0.5 H Neut % (Auto) 69.5 Lymph % (Auto) 16.3 L [place] % (Auto) 8.2 Eos % (Auto) 5.0 H Baso % (Auto) 0.5 Lymph # (Auto) 0.9 L [place] # (Auto) 0.5 Eos # (Auto) 0.3 Baso # (Auto) 0.0 Abs Immat Gran (auto) 0.03 Absolute Neuts (auto) 3.9 Absolute Nucleated RBC 0.000 Nucleated RBC % (auto) 0.0 PT 12.6 INR 1.1 Anion Gap 12 Estim Creat Clear Calc 40.4 Estimated GFR 54 POC Glucose Random Glucose 223 H D Lactic Acid Calcium 8.2 L Total Bilirubin 0.3 Direct Bilirubin 0.2 AST 11 ALT 8 Alkaline Phosphatase 107 Total Protein 6.7 Albumin 3.4 L COVID-19 ([facility]) COVID-19 Clin Com 09/25/21 09/25/21 09/26/21 21:49 21:49 07:56 MCV MCH MCHC RDW Plt Count MPV Immature Gran % (Auto) Neut % (Auto) Lymph % (Auto) [place] % (Auto) Eos % (Auto) Baso % (Auto) Lymph # (Auto) [place] # (Auto) Eos # (Auto) Baso # (Auto) Abs Immat Gran (auto) Absolute Neuts (auto) Absolute Nucleated RBC Nucleated RBC % (auto) PT INR Anion Gap Estim Creat Clear Calc Estimated GFR POC Glucose 164 H Random Glucose Lactic Acid 0.7 Calcium Total Bilirubin Direct Bilirubin AST ALT Alkaline Phosphatase Total Protein Albumin COVID-19 ([facility]) Negative COVID-19 Clin Com See Note 09/26/21 12:33 MCV MCH MCHC RDW Plt Count MPV Immature Gran % (Auto) Neut % (Auto) Lymph % (Auto) [place] % (Auto) Eos % (Auto) Baso % (Auto) Lymph # (Auto) [place] # (Auto) Eos # (Auto) Baso # (Auto) Abs Immat Gran (auto) Absolute Neuts (auto) Absolute Nucleated RBC Nucleated RBC % (auto) PT INR Anion Gap Estim Creat Clear Calc Estimated GFR POC Glucose 154 H Random Glucose Lactic Acid Calcium Total Bilirubin Direct Bilirubin AST ALT Alkaline Phosphatase Total Protein Albumin COVID-19 ([facility]) COVID-19 Clin Com Assessment and Plan (1) PAD (peripheral artery disease): Status: Acute (2) ENRIQUE (acute kidney injury): Status: Acute (3) Osteomyelitis: Status: Acute Plan 75-year-old male with past medical history of diabetes as well as PVD who presents to the hospital with necrotic right toe found to have osteomyelitis # osteomyelitis - x-ray of the foot showed acute osteomyelitis - no leukocytosis, afebrile - infectious disease consulted - surgical team consulted - arterial Dopplers done showed no significant stenosis vascular and surgery eval Continue Piperacillin/tazobactam and Vancomycin vancotrough # ENRIQUE - likely prerenal in the setting of dehydration/infection - will treat with IV fluid, improving - follow BMP # diabetes - low-dose sliding scale insulin - diabetic diet # history of PVD - continue Plavix - no evidence of acute stenosis on arterial Dopplers DVT prophylaxis:? Heparin subQ Inpatient need: Osteomyelitis, possible toe necrosis on IV antibiotics, need further vascular workup. Quality Stroke Does the patient have a stroke diagnosis?: No VTE Prior VTE?: No VTE Risk Level:: Medical - moderate - high VTE Device Contraindication: Treatment Not Indicated VTE Drug Contraindication: N/A - Med Ordered
[2021-09-26] MEDS: Clopidogrel Bisulfate 75 MG TABLET PO (17:30)
--- NOTE | 2021-09-26 17:42 | PC.NURSE ---
Spoke with pt via an technical rep Pt alert and orientated x4 but is a little confused on the procedure that will take place. Provider aware
[2021-09-26 21:13] LABS: Glucose, Whole Blood 220 mg/dL (60-115)
[2021-09-26] MEDS: Insulin Glargine,Hum.rec.anlog 100 UNIT/ML 10 ML VIAL 12 UNIT SUBCUT (21:22)
[2021-09-27] VITALS: BP 162/72; PULSE 91; RESP 20; TEMP 36.4; O2SAT 97
[2021-09-27] MEDS: Lactated Ringers 1,000 ML 80 ML IVCONT ×2 (00:13→17:16)
[2021-09-27 04:00] VITALS: BP 157/67; PULSE 71; RESP 16; TEMP 37.2; O2SAT 97
[2021-09-27 07:58] VITALS: BP 146/74; PULSE 82; RESP 16; O2SAT 98
[2021-09-27 08:43] LABS: Glucose, Whole Blood 151 mg/dL (60-115)
[2021-09-27] MEDS: Ascorbic Acid 500 MG TABLET PO (11:03)
[2021-09-27] MEDS: Clopidogrel Bisulfate 75 MG TABLET PO (11:03)
[2021-09-27] MEDS: Aspirin Enteric Coated 81 MG TABLET.DR PO (11:03)
[2021-09-27] MEDS: 0.9 % Sodium Chloride Flush 3 ML SYRINGE IVFLUSH ×2 (11:03→17:17)
[2021-09-27 12:27] VITALS: BP 174/49; PULSE 89; RESP 16; O2SAT 98
[2021-09-27 12:50] LABS: Glucose, Whole Blood 117 mg/dL (60-115)
--- NOTE | 2021-09-27 15:23 | PC.NURSE ---
PATIENT WAS INC OF URINE ,CARE GIVEN BEDDING CHANGE ,PATIENT RESTING AND WATCHING TELEVISION .
[2021-09-27 16:00] VITALS: BP 168/74; PULSE 74; RESP 16; TEMP 36.6; O2SAT 97
--- NOTE | 2021-09-27 16:32 | HO.PM.IMPN ---
Subjective Subjective Date of Service: 09/27/21 Interval History: foot osteo. Review of Systems foot seems similar to yesterday denies any chest pain or sob or fevers or chills' Physical Exam Vital Signs: Vital Signs: Last Vital Signs Temp 99.0 F 09/27/21 04:00 Pulse 89 09/27/21 12:27 Resp 16 09/27/21 12:27 BP 174/49 H 09/27/21 12:27 Pulse Ox 98 09/27/21 12:27 O2 Del Method 09/27/21 12:27 BMI result Body Mass Index 25.7 Appearance: Alert.? Oriented, seems comfortable. cvs: rrr, [id number] , no murmur res: clear to auscultation ,no rhonchii or wheezing abd: no rebound or guarding ,nt, bs present. ext pulses present , no cyanosis ,Gait well balanced well coordinated. neuro: axo3 , nonfocal. BKA on the left; right foot ulcers on the mediolateral aspect of the 4th toe, eschar on the lateral aspect; appears to have chronic trophic changes of the right foot seems similar to yesterday. Objective Data Active Medications Acetaminophen (Acetaminophen 325 Mg Tablet) 650 mg PO Q6H PRN PRN Reason: Pain, Mild (Pain Scale 1-3) Albuterol Sulfate (Albuterol Sulfate 90 Mcg 8 Gm Inhaler) 2 puff INHALE Q4H PRN PRN Reason: Shortness Of Breath Or Wheezing Ascorbic Acid (Ascorbic Acid 500 Mg Tablet) 500 mg PO DAILY [facility] Last Admin: 09/27/21 11:03 Dose: 500 mg Documented By: CUAUHTEMOC Aspirin (Aspirin Enteric Coated 81 Mg Tablet.) 81 mg PO DAILY [facility] Last Admin: 09/27/21 11:03 Dose: 81 mg Documented By: CUAUHTEMOC Calcium Carbonate (Calcium Carbonate 500 Mg Tablet) 1,500 mg PO DAILY [facility] Last Admin: 09/27/21 11:03 Dose: 1,500 mg Documented By: CUAUHTEMOC Clopidogrel Bisulfate (Clopidogrel Bisulfate 75 Mg Tablet) 75 mg PO DAILY [facility] Last Admin: 09/27/21 11:03 Dose: 75 mg Documented By: CUAUHTEMOC Dextrose (Dextrose 50 % 25 Gm/50 Ml Syringe) 25 gm IVPUSH Q15M PRN; Protocol PRN Reason: per Hypoglycemia Standing Ord. Docusate Sodium (Docusate Sodium 100 Mg Capsule) 100 mg PO DAILY PRN PRN Reason: Constipation Glucose (Glucose Gel 15 Gm Gel..Gram.) 15 gm PO Q15M PRN; Protocol PRN Reason: per Hypoglycemia Standing Ord. Heparin Sodium (Porcine) (Heparin Sodium,Porcine 5,000 Unit/Ml Vial) 5,000 unit SUBCUT 0700,1900 [facility] Last Admin: 09/26/21 09:05 Dose: Not Given Documented By: MIC Non-Admin Reason: See Note Lactated Ringer's (Lr) 1,000 mls @ 80 mls/hr IVCONT .[id number] [facility] Last Admin: 09/27/21 00:13 Dose: 80 mls/hr Documented By: SHERIN Piperacillin Sod/Tazobactam (Sod 3.375 gm/ Sodium Chloride) 50 mls @ 100 mls/hr IV Q6H ON [facility] Insulin Glargine (Insulin Glargine,Hum.Rec.Anlog 100 Unit/Ml 10 Ml Vial) 12 unit SUBCUT BEDTIME ON [facility] Last Admin: 09/26/21 21:22 Dose: 12 unit Documented By: REGLA Insulin Human Lispro (Insulin Lispro 100 Unit/Ml 3 Ml Vial) 0.1 - 10 unit SUBCUT QIDACHS ON [facility]; Protocol Last Admin: 09/26/21 08:46 Dose: 2 unit Documented By: MIC Ondansetron HCl (Ondansetron Hcl 4 Mg/2 Ml Vial) 4 mg IVPUSH Q8H PRN PRN Reason: Nausea and Vomiting Pharmacy Consult (Consult Rx Vancomycin Dosing) 1 each MISCELLANE DAILY PRN PRN Reason: Consult order Sodium Chloride (0.9 % Sodium Chloride Flush 3 Ml Syringe) 3 ml IVFLUSH QSHIFT ON [facility] Last Admin: 09/27/21 11:03 Dose: 3 ml Documented By: CUAUHTEMOC Labs CBC & Chem 7: 09/25/21 21:49 09/25/21 21:49 Labs: Laboratory Results - last 24 hr 09/26/21 09/27/21 09/27/21 21:09 07:31 12:26 POC Glucose 220 H 151 H 117 H Microbiology Microbiology Results: Microbiology 09/25/21 21:49 Blood Culture - Preliminary Blood - Venous No growth after 24 hours. 09/25/21 21:49 Blood Culture - Preliminary Blood - Venous No growth after 24 hours. Assessment and Plan (1) PAD (peripheral artery disease): Status: Acute (2) Necrosis of toe: Status: Acute (3) Osteomyelitis: Status: Acute Plan 75-year-old male with past medical history of diabetes as well as PVD who presents to the hospital with necrotic right toe found to have osteomyelitis # osteomyelitis - x-ray of the foot showed acute osteomyelitis - no leukocytosis, afebrile - will treat with IV antibiotics-iv vanco/zosyn arterial dupplex:?arterial duplex LE RT IMPRESSION: There is evidence of multilevel significant atherosclerotic disease greatest distally in the right popliteal and posterior tibial artery.? Seen by surgery and vascular recommended to continue IV antibiotics, may need vascular intervention Patient intermittently refuses treatments but talked to him in detail he is now agreeable. # ENRIQUE - likely prerenal in the setting of dehydration/infection - will treat with IV fluid - follow BMP # diabetes - low-dose sliding scale insulin - diabetic diet # history of PVD - continue Plavix - no evidence of acute stenosis on arterial Dopplers DVT prophylaxis:? Heparin subQ In patient need: Foot osteomyelitis on iv antibiotic, vascular intervention needed. Quality Stroke Does the patient have a stroke diagnosis?: No VTE Prior VTE?: No VTE Risk Level:: Medical - moderate - high VTE Device Contraindication: Treatment Not Indicated VTE Drug Contraindication: N/A - Med Ordered
[2021-09-27 17:09] LABS: Glucose, Whole Blood 156 mg/dL (60-115)
[2021-09-27] MEDS: Piperacillin Sodium/Tazobactam 3.375 GM in 0.9 % Sodium Chloride 50 ML IV ×2 (17:25→21:21)
[2021-09-27 17:27] LABS: Anion Gap 10 (12-20); Blood Urea Nitrogen 20 mg/dL (9-16); Calcium 8.9 mg/dL (8.4-10.2); Carbon Dioxide 30 mmol/L (22-29); Chloride 105 mmol/L (96-108); Creatinine Clr Calc Pharmacy 51.2; Estimated Glomerular Filt Rate > 60; Glucose Random 183 mg/dL (60-115); Potassium 4.3 mmol/L (3.3-5.1); Sodium 141 mmol/L (135-145)
--- NOTE | 2021-09-27 17:46 | PC.NURSE ---
1739-report called to FRANCHESCA Fitzgerald. questions answered.
--- NOTE | 2021-09-27 18:06 | PC.NURSE ---
PATIENT PUT OUT 400 ML URINE .
[2021-09-27 18:30] VITALS: BP 169/82; PULSE 89; RESP 18; TEMP 36.9; O2SAT 98
[2021-09-27] MEDS: vancomycin HCL 1,500 MG in 0.9 % Sodium Chloride 500 ML 333.33 MG IV (18:39)
[2021-09-27 20:01] LABS: Glucose, Whole Blood 207 mg/dL (60-115)
[2021-09-27] MEDS: Insulin Glargine,Hum.rec.anlog 100 UNIT/ML 10 ML VIAL 12 UNIT SUBCUT (21:21)
--- NOTE | 2021-09-27 21:52 | PHA.PROG ---
Admission Date/Time: September 25, 2021 23:50 Indication: Weight in k.039 kg Adjusted body weight in Kg: Critz body weight in Kg: Obesity Dosing Indication % IBW: Serum Creatinine - Last 168 Hours 09/25/21 09/27/21 21:49 16:49 Creatinine 1.28 1.01 Estimated CrCl and GFR - Last 168 Hours 09/25/21 09/27/21 21:49 16:49 Estim Creat Clear Calc 40.4 51.2 Estimated GFR 54 > 60 Vancomycin Loading Dose: 1500 mg Current Vancomycin Dosing Regimen: 1250 q24h Vancomycin Monitoring using AUC goal of 400 - 600 range with trough as surrogate marker: Date and Time for next Vancomycin Level to be drawn: 09/29/21 @1600 Pharmacist Comments on Vancomycin Plan: expected random auc >400 trough~14 Vancomycin dosing will take advantage of [employer]oxil[employer]X as a clinical decision support tool that uses Bayesian modeling to calculate individual patient's pharmacokinetic parameters and forecast the patient's drug concentration time course with the target goal AUC 24 range of 400 - 600 mg/L/hr.
[2021-09-28] VITALS (7 sets, daily range): BP systolic 130–182; BP diastolic 55–87; PULSE 78–90; RESP 17–18; TEMP 36.1–37; O2SAT 96–99
[2021-09-28] MEDS: Piperacillin Sodium/Tazobactam 3.375 GM in 0.9 % Sodium Chloride 50 ML IV ×4 (06:07→23:02)
[2021-09-28] MEDS: Lactated Ringers 1,000 ML 80 ML IVCONT ×2 (06:08→16:44)
[2021-09-28 07:40] LABS: Glucose, Whole Blood 156 mg/dL (60-115)
[2021-09-28] MEDS: Clopidogrel Bisulfate 75 MG TABLET PO (08:38)
[2021-09-28] MEDS: Aspirin Enteric Coated 81 MG TABLET.DR PO (08:38)
[2021-09-28] MEDS: Ascorbic Acid 500 MG TABLET PO (08:38)
[2021-09-28] MEDS: amLODIPine Besylate 2.5 MG TABLET PO (08:38)
[2021-09-28] MEDS: 0.9 % Sodium Chloride Flush 3 ML SYRINGE IVFLUSH (08:38)
[2021-09-28 11:42] LABS: Glucose, Whole Blood 189 mg/dL (60-115)
--- NOTE | 2021-09-28 12:06 | HO.PM.IMPN ---
Subjective Subjective Date of Service: 09/28/21 Interval History: foot osteo. Review of Systems foot seems similar to yesterday Denies any chest pain or shortness of breath or fever or chills. Physical Exam Vital Signs: Vital Signs: Last Vital Signs Temp 97.9 F 09/28/21 11:39 Pulse 90 09/28/21 11:39 Resp 18 09/28/21 11:39 BP 160/79 H 09/28/21 11:39 Pulse Ox 98 09/28/21 11:39 O2 Del Method 09/28/21 11:39 BMI result Body Mass Index 25.7 Appearance: Alert.? Oriented, seems comfortable. cvs: [id number], [id number] , no murmur res: clear to auscultation ,no rhonchii or wheezing abd: no rebound or guarding ,nt, bs present. ext pulses present , no cyanosis ,Gait well balanced well coordinated. neuro: axo3 , nonfocal. BKA on the left; right foot ulcers on the mediolateral aspect of the 4th toe, eschar on the lateral aspect; appears to have chronic trophic changes of the right foot seems similar to yesterday. Objective Data Active Medications Acetaminophen (Acetaminophen 325 Mg Tablet) 650 mg PO Q6H PRN PRN Reason: Pain, Mild (Pain Scale 1-3) Albuterol Sulfate (Albuterol Sulfate 90 Mcg 8 Gm Inhaler) 2 puff INHALE Q4H PRN PRN Reason: Shortness Of Breath Or Wheezing Amlodipine Besylate (Amlodipine Besylate 2.5 Mg Tablet) 2.5 mg PO DAILY [facility]; Protocol Last Admin: 09/28/21 08:38 Dose: 2.5 mg Documented By: DALIA Ascorbic Acid (Ascorbic Acid 500 Mg Tablet) 500 mg PO DAILY [facility] Last Admin: 09/28/21 08:38 Dose: 500 mg Documented By: DALIA Aspirin (Aspirin Enteric Coated 81 Mg Tablet.) 81 mg PO DAILY [facility] Last Admin: 09/28/21 08:38 Dose: 81 mg Documented By: DALIA Calcium Carbonate (Calcium Carbonate 500 Mg Tablet) 1,500 mg PO DAILY [facility] Last Admin: 09/28/21 08:38 Dose: 1,500 mg Documented By: DALIA Clopidogrel Bisulfate (Clopidogrel Bisulfate 75 Mg Tablet) 75 mg PO DAILY [facility] Last Admin: 09/28/21 08:38 Dose: 75 mg Documented By: DALIA Dextrose (Dextrose 50 % 25 Gm/50 Ml Syringe) 25 gm IVPUSH Q15M PRN; Protocol PRN Reason: per Hypoglycemia Standing Ord. Docusate Sodium (Docusate Sodium 100 Mg Capsule) 100 mg PO DAILY PRN PRN Reason: Constipation Glucose (Glucose Gel 15 Gm Gel..Gram.) 15 gm PO Q15M PRN; Protocol PRN Reason: per Hypoglycemia Standing Ord. Heparin Sodium (Porcine) (Heparin Sodium,Porcine 5,000 Unit/Ml Vial) 5,000 unit SUBCUT 0700,1900 [facility] Last Admin: 09/26/21 09:05 Dose: Not Given Documented By: MIC Non-Admin Reason: See Note Lactated Ringer's (Lr) 1,000 mls @ 80 mls/hr IVCONT .[id number] [facility] Last Admin: 09/28/21 06:08 Dose: 80 mls/hr Documented By: SCOTTY Piperacillin Sod/Tazobactam (Sod 3.375 gm/ Sodium Chloride) 50 mls @ 100 mls/hr IV Q6H [facility] Last Infusion: 09/28/21 12:02 Dose: 0 mls/hr Documented By: DALIA Vancomycin HCl 1,250 mg/ (Sodium Chloride) 250 mls @ 166.667 mls/hr IV Q24H [facility] Insulin Glargine (Insulin Glargine,Hum.Rec.Anlog 100 Unit/Ml 10 Ml Vial) 12 unit SUBCUT BEDTIME [facility] Last Admin: 09/27/21 21:21 Dose: 12 unit Documented By: SCOTTY Insulin Human Lispro (Insulin Lispro 100 Unit/Ml 3 Ml Vial) 0.1 - 10 unit SUBCUT QIDACHS [facility]; Protocol Last Admin: 09/26/21 08:46 Dose: 2 unit Documented By: MIC Ondansetron HCl (Ondansetron Hcl 4 Mg/2 Ml Vial) 4 mg IVPUSH Q8H PRN PRN Reason: Nausea and Vomiting Pharmacy Consult (Consult Rx Vancomycin Dosing) 1 each MISCELLANE DAILY PRN PRN Reason: Consult order Sodium Chloride (0.9 % Sodium Chloride Flush 3 Ml Syringe) 3 ml IVFLUSH QSHIFT [facility] Last Admin: 09/28/21 08:38 Dose: 3 ml Documented By: DALIA Labs CBC & Chem 7: 09/25/21 21:49 09/27/21 16:49 Labs: Laboratory Results - last 24 hr 09/27/21 09/27/21 09/27/21 12:26 16:41 16:49 Anion Gap 10 L Estim Creat Clear Calc 51.2 Estimated GFR > 60 POC Glucose 117 H 156 H Random Glucose 183 H Calcium 8.9 D 09/27/21 09/28/21 09/28/21 19:45 07:32 11:38 Anion Gap Estim Creat Clear Calc Estimated GFR POC Glucose 207 H 156 H 189 H Random Glucose Calcium Microbiology Microbiology Results: Microbiology 09/25/21 21:49 Blood Culture - Preliminary Blood - Venous No growth after 48 hours. 09/25/21 21:49 Blood Culture - Preliminary Blood - Venous No growth after 48 hours. Assessment and Plan (1) PAD (peripheral artery disease): Status: Acute (2) ENRIQUE (acute kidney injury): Status: Acute Plan 75-year-old male with past medical history of diabetes as well as PVD who presents to the hospital with necrotic right toe found to have osteomyelitis # osteomyelitis - x-ray of the foot showed acute osteomyelitis - no leukocytosis, afebrile - will treat with IV antibiotics-iv vanco/zosyn arterial dupplex:?arterial duplex LE RT IMPRESSION: There is evidence of multilevel significant atherosclerotic disease greatest distally in the right popliteal and posterior tibial artery.? Seen by surgery and vascular recommended to continue IV antibiotics, may need vascular intervention Patient intermittently refuses treatments but talked to him in detail he is now agreeable. # ENRIQUE - likely prerenal in the setting of dehydration/infection on IV fluid-improving - follow BMP # diabetes: fs 150-180 - low-dose sliding scale insulin - diabetic diet # history of PVD - continue Plavix - no evidence of acute stenosis on arterial Dopplers. Patient intermittently refuses labs and medications-discussed with him with the help of echocardiologist-he agrees to continue antibiotic and lab draws. DVT prophylaxis:? Heparin subQ In patient need:? Foot osteomyelitis on iv antibiotic, vascular intervention needed. Quality Stroke Does the patient have a stroke diagnosis?: No VTE Prior VTE?: No VTE Risk Level:: Medical - moderate - high VTE Device Contraindication: Treatment Not Indicated VTE Drug Contraindication: N/A - Med Ordered
[2021-09-28 16:21] LABS: Glucose, Whole Blood 216 mg/dL (60-115)
[2021-09-28 16:32] LABS: Blood Urea Nitrogen 17 mg/dL (9-16); Creatinine Clr Calc Pharmacy 52.8; Estimated Glomerular Filt Rate > 60
[2021-09-28] MEDS: Insulin Lispro 100 UNIT/ML 3 ML VIAL SUBCUT (16:44)
[2021-09-28] MEDS: vancomycin HCL 1,250 MG in 0.9 % Sodium Chloride 250 ML 166.67 MG IV (18:01)
[2021-09-28 20:13] LABS: Glucose, Whole Blood 139 mg/dL (60-115)
[2021-09-28] MEDS: Insulin Glargine,Hum.rec.anlog 100 UNIT/ML 10 ML VIAL 12 UNIT SUBCUT (20:20)
[2021-09-29 04:00] VITALS: BP 148/71; PULSE 83; RESP 18; TEMP 36.1; O2SAT 96
[2021-09-29] MEDS: Piperacillin Sodium/Tazobactam 3.375 GM in 0.9 % Sodium Chloride 50 ML IV ×4 (04:52→22:45)
[2021-09-29 06:55] LABS: Creatinine Clr Calc Pharmacy 60.9; Estimated Glomerular Filt Rate > 60
[2021-09-29 07:26] LABS: Glucose, Whole Blood 89 mg/dL (60-115)
[2021-09-29 08:00] VITALS: BP 156/81; PULSE 85; RESP 20; TEMP 36.4; O2SAT 97
[2021-09-29] MEDS: Lactated Ringers 1,000 ML 80 ML IVCONT (09:11)
--- NOTE | 2021-09-29 09:49 | HO.VASCPN ---
Subjective Subjective Date of Service: 09/29/21 Patient reports: no new complaints and feels better Interval history: Complex 75 yo male with gangerenous right 4th toe. He has had no events over the past weekend. Appears to be doing relatively well. now for follow-up with arterial testing Physical Exam Vital Signs: Vital Signs: Last Vital Signs Temp 97.5 F 09/29/21 08:00 Pulse 85 09/29/21 08:00 Resp 20 09/29/21 08:00 BP 156/81 H 09/29/21 08:00 Pulse Ox 97 09/29/21 08:00 O2 Del Method 09/29/21 08:00 BMI result Body Mass Index 25.7 Const: General: cooperative, healthy appearing and no acute distress Orientation/consciousness: oriented to person, oriented to place and oriented to time HEENT: Head: Yes normal to inspection Neck: Carotids: no bruits Chest: Chest palpation & inspection: normal inspection of the chest Resp: Effort & Inspection: normal respiratory effort and able to speak in complete sentences Auscultation: clear to auscultation bilaterally Cardio: Rate: regular rate Heart sounds: S1 normal heart sound present and S2 normal heart sound present Peripheral pulses: dorsalis pedis present on the right dopplerable GI: Inspection: Yes normal to inspection Skin: General skin exam: no rashes or lesions noted Wounds: wounds noted ( right 4th toe gangrene) Neuro: General: oriented to person, oriented to place, oriented to time and CN's II-XI intact bilaterally Extrem: General: Yes normal to inspection, Yes full ROM and Yes no clubbing, cyanosis or edema Psych: Appearance: grossly normal and well kempt Speech and movement: Normal speech and movement present Affect: normal affect Progress Note: A&P Assessment and plan (1) PAD (peripheral artery disease): Status: Acute Assessment and Plan: Patient notes right foot ulcer. I have discussed the pathophysiology of peripheral vascular disease with the patient. I have also discussed risk factor modification. I have reviewed the patient's arterial testing which reveals SFA and tibial disease on the right. the patient would benefit from a right leg endovascular peripheral angiogram with possible angioplasty, stent, and/or atherectomy. This has been discussed in detail with the patient along with risks, benefits, and complications. This includes but is not limited to bleeding, infection, heart attack, need for emergent surgical repair, limb ischemia, blood vessel damage, bleeding, puncture, kidney injury, bruising, allergic reaction, and skin reaction. The patient demonstrates a clear understanding. We will schedule for the next appropriate time. Thank you for allowing us to assist in this patient's care. Time Spent With Patient Time: Total time spent is greater than 50% in coordination of care (as documented) at patient's floor/unit and/or counseling patient: Procedures Date of Service Date of Service: 09/29/21 Quality Stroke Does the patient have a stroke diagnosis?: No VTE Prior VTE?: No VTE Risk Level:: Medical - moderate - high VTE Device Contraindication: Treatment Not Indicated VTE Drug Contraindication: N/A - Med Ordered
[2021-09-29] MEDS: Aspirin Enteric Coated 81 MG TABLET.DR PO (10:39)
[2021-09-29] MEDS: amLODIPine Besylate 2.5 MG TABLET PO (10:39)
[2021-09-29] MEDS: Ascorbic Acid 500 MG TABLET PO (10:39)
[2021-09-29] MEDS: Clopidogrel Bisulfate 75 MG TABLET PO (10:40)
--- NOTE | 2021-09-29 10:43 | P.PNIM_ITS ---
Subjective Subjective Date of Service: 09/29/21 Interval History: foot osteo. Review of Systems foot seems similar to yesterday Denies any chest pain or shortness of breath or fever or chills Physical Exam Vital Signs: Vital Signs: Last Vital Signs Temp 97.5 F 09/29/21 08:00 Pulse 85 09/29/21 08:00 Resp 20 09/29/21 08:00 BP 156/81 H 09/29/21 08:00 Pulse Ox 97 09/29/21 08:00 O2 Del Method 09/29/21 08:00 BMI result Body Mass Index 25.7 Appearance: Alert.? Oriented, seems comfortable. cvs: rrr, [id number] , no murmur res: clear to auscultation ,no rhonchii or wheezing abd: no rebound or guarding ,nt, bs present. ext pulses present , no cyanosis ,Gait well balanced well coordinated. neuro: axo3 , nonfocal. BKA on the left; right foot ulcers on the mediolateral aspect of the 4th toe, eschar on the lateral aspect; appears to have chronic trophic changes of the right foot seems similar to yesterday. Objective Data Active Medications Acetaminophen (Acetaminophen 325 Mg Tablet) 650 mg PO Q6H PRN PRN Reason: Pain, Mild (Pain Scale 1-3) Albuterol Sulfate (Albuterol Sulfate 90 Mcg 8 Gm Inhaler) 2 puff INHALE Q4H PRN PRN Reason: Shortness Of Breath Or Wheezing Amlodipine Besylate (Amlodipine Besylate 2.5 Mg Tablet) 2.5 mg PO DAILY [facility]; Protocol Last Admin: 09/29/21 10:39 Dose: 2.5 mg Documented By: ABELARDO Ascorbic Acid (Ascorbic Acid 500 Mg Tablet) 500 mg PO DAILY [facility] Last Admin: 09/29/21 10:39 Dose: 500 mg Documented By: ABELARDO Aspirin (Aspirin Enteric Coated 81 Mg Tablet.) 81 mg PO DAILY [facility] Last Admin: 09/29/21 10:39 Dose: 81 mg Documented By: ABELARDO Calcium Carbonate (Calcium Carbonate 500 Mg Tablet) 1,500 mg PO DAILY [facility] Last Admin: 09/29/21 10:39 Dose: 1,500 mg Documented By: ABELARDO Clopidogrel Bisulfate (Clopidogrel Bisulfate 75 Mg Tablet) 75 mg PO DAILY [facility] Last Admin: 09/29/21 10:40 Dose: 75 mg Documented By: ABELARDO Dextrose (Dextrose 50 % 25 Gm/50 Ml Syringe) 25 gm IVPUSH Q15M PRN; Protocol PRN Reason: per Hypoglycemia Standing Ord. Docusate Sodium (Docusate Sodium 100 Mg Capsule) 100 mg PO DAILY PRN PRN Reason: Constipation Glucose (Glucose Gel 15 Gm Gel..Gram.) 15 gm PO Q15M PRN; Protocol PRN Reason: per Hypoglycemia Standing Ord. Heparin Sodium (Porcine) (Heparin Sodium,Porcine 5,000 Unit/Ml Vial) 5,000 unit SUBCUT 0700,1900 [facility] Lactated Ringer's (Lr) 1,000 mls @ 80 mls/hr IVCONT .[id number] [facility] Last Admin: 09/29/21 09:11 Dose: 80 mls/hr Documented By: ABELARDO Piperacillin Sod/Tazobactam (Sod 3.375 gm/ Sodium Chloride) 50 mls @ 100 mls/hr IV Q6H [facility] Last Admin: 09/29/21 10:40 Dose: 100 mls/hr Documented By: ABELARDO Vancomycin HCl 1,250 mg/ (Sodium Chloride) 250 mls @ 166.667 mls/hr IV Q24H [facility] Last Infusion: 09/28/21 20:17 Dose: 0 mls/hr Documented By: ALYSA Sodium Chloride (Ns) 1,000 mls @ 100 mls/hr IVCONT .Q10H [facility] Insulin Glargine (Insulin Glargine,Hum.Rec.Anlog 100 Unit/Ml 10 Ml Vial) 12 unit SUBCUT BEDTIME [facility] Last Admin: 09/28/21 20:20 Dose: 12 unit Documented By: ALYSA Insulin Human Lispro (Insulin Lispro 100 Unit/Ml 3 Ml Vial) 0.1 - 10 unit SUBC UT QIDACHS [facility]; Protocol Last Admin: 09/29/21 08:03 Dose: Not Given Documented By: ABELARDO Non-Admin Reason: No Insulin Coverage Ondansetron HCl (Ondansetron Hcl 4 Mg/2 Ml Vial) 4 mg IVPUSH Q8H PRN PRN Reason: Nausea and Vomiting Pharmacy Consult (Consult Rx Vancomycin Dosing) 1 each MISCELLANE DAILY PRN PRN Reason: Consult order Sodium Chloride (0.9 % Sodium Chloride Flush 3 Ml Syringe) 3 ml IVFLUSH QSHIFT [facility] Last Admin: 09/29/21 09:11 Dose: Not Given Documented By: ABELARDO Non-Admin Reason: IV Running Labs CBC & Chem 7: 09/25/21 21:49 09/29/21 06:07 Labs: Laboratory Results - last 24 hr 09/28/21 09/28/21 09/28/21 11:38 15:33 15:50 Estim Creat Clear Calc 52.8 Estimated GFR > 60 POC Glucose 189 H 216 H 09/28/21 09/29/21 09/29/21 20:01 06:07 07:19 Estim Creat Clear Calc 60.9 Estimated GFR > 60 POC Glucose 139 H 89 Assessment and Plan (1) PAD (peripheral artery disease): Status: Acute (2) Osteomyelitis: Status: Acute Plan 75-year-old male with past medical history of diabetes as well as PVD who presents to the hospital with necrotic right toe found to have osteomyelitis # osteomyelitis - x-ray of the foot showed acute osteomyelitis - no leukocytosis, afebrile - will treat with IV antibiotics-iv vanco/zosyn arterial dupplex:?arterial duplex LE RT IMPRESSION: There is evidence of multilevel significant atherosclerotic disease greatest distally in the right popliteal and posterior tibial artery.? Seen by surgery and vascular recommended to continue IV antibiotics, may need vascular intervention Patient intermittently refuses treatments but talked to him in detail he is now agreeable. # ENRIQUE - likely prerenal in the setting of dehydration/infection on? IV fluid-improving - follow BMP # diabetes: fs 100-200 - low-dose sliding scale insulin - diabetic diet # history of PVD - continue Plavix - no evidence of acute stenosis on arterial Dopplers. Patient intermittently refuses labs and medications-discussed with him with the help of biology specimen technician-he agrees to continue antibiotic and lab draws. DVT prophylaxis:? Heparin subQ In patient need:? Foot osteomyelitis on iv antibiotic, vascular intervention needed. Quality Stroke Does the patient have a stroke diagnosis?: No VTE Prior VTE?: No VTE Risk Level:: Medical - moderate - high VTE Device Contraindication: Treatment Not Indicated VTE Drug Contraindication: N/A - Med Ordered
[2021-09-29] MEDS: Heparin Sodium,Porcine 5,000 UNIT/ML VIAL 5000 UNIT SUBCUT ×2 (11:36→22:45)
[2021-09-29 11:42] LABS: Glucose, Whole Blood 155 mg/dL (60-115)
[2021-09-29 12:00] VITALS: BP 178/91; PULSE 89; RESP 20; TEMP 36.4; O2SAT 97
[2021-09-29] MEDS: Insulin Lispro 100 UNIT/ML 3 ML VIAL SUBCUT ×2 (12:37→16:45)
[2021-09-29 15:45] VITALS: BP 137/83; PULSE 84; RESP 16; TEMP 36.6; O2SAT 96
[2021-09-29 16:00] LABS: Glucose, Whole Blood 157 mg/dL (60-115)
[2021-09-29] MEDS: vancomycin HCL 1,250 MG in 0.9 % Sodium Chloride 250 ML 166.67 MG IV (19:10)
[2021-09-29 19:37] VITALS: BP 160/65; PULSE 85; RESP 20; TEMP 37.1; O2SAT 98
[2021-09-29 20:14] LABS: Glucose, Whole Blood 158 mg/dL (60-115)
[2021-09-29 23:42] VITALS: BP 143/59; PULSE 77; RESP 17; TEMP 36.6; O2SAT 97
[2021-09-30] VITALS (13 sets, daily range): BP systolic 136–187; BP diastolic 67–88; PULSE 81–100; RESP 16–18; TEMP 35.9–36.9; O2SAT 95–98
[2021-09-30] MEDS: Lactated Ringers 1,000 ML 80 ML IVCONT (01:00)
[2021-09-30] MEDS: Piperacillin Sodium/Tazobactam 3.375 GM in 0.9 % Sodium Chloride 50 ML IV ×3 (05:31→23:47)
[2021-09-30 06:23] LABS: Hematocrit 36.7 % (42.0-52.0); Hemoglobin 11.8 g/dl (14.0-18.0); Mean Corpuscular HGB Conc 32.2 g/dl (31.0-36.0); Mean Corpuscular Hemoglobin 28.6 pg (27.0-33.0); Mean Corpuscular Volume 89.1 fL (80.0-98.0); Mean Platelet Volume 9.2 fL (9.4-12.4); Platelet Count 249 X10*3/uL (160-400); Red Blood Count 4.12 X10*6/uL (4.60-5.80); Red Cell Distribution Width 13.3 % (11.0-16.0); White Blood Count 5.4 X10*3/uL (4.8-10.8)
[2021-09-30 06:42] LABS: Creatinine Clr Calc Pharmacy 55.1; Estimated Glomerular Filt Rate > 60
[2021-09-30 07:15] LABS: Anion Gap 12 (12-20); Blood Urea Nitrogen 13 mg/dL (9-16); Calcium 9.7 mg/dL (8.4-10.2); Carbon Dioxide 30 mmol/L (22-29); Chloride 103 mmol/L (96-108); Creatinine Clr Calc Pharmacy 53.4; Estimated Glomerular Filt Rate > 60; Glucose Random 167 mg/dL (60-115); Potassium 3.9 mmol/L (3.3-5.1); Sodium 141 mmol/L (135-145)
[2021-09-30 07:44] LABS: Glucose, Whole Blood 140 mg/dL (60-115)
[2021-09-30] MEDS: amLODIPine Besylate 2.5 MG TABLET PO (09:07)
--- NOTE | 2021-09-30 10:33 | P.PNIM_ITS ---
Subjective Subjective Date of Service: 09/30/21 Interval History: foot osteo. Review of Systems foot seems similar to yesterday Denies any chest pain or shortness of breath or fever or chills Physical Exam Vital Signs: Vital Signs: Last Vital Signs Temp 96.7 F L 09/30/21 08:00 Pulse 81 09/30/21 08:00 Resp 16 09/30/21 08:00 BP 173/82 H 09/30/21 08:00 Pulse Ox 98 09/30/21 08:00 O2 Del Method 09/30/21 08:00 BMI result Body Mass Index 25.7 Appearing in no acute distress LSCTA HRRR abd soft Alert and oriented Objective Data Active Medications Acetaminophen (Acetaminophen 325 Mg Tablet) 650 mg PO Q6H PRN PRN Reason: Pain, Mild (Pain Scale 1-3) Albuterol Sulfate (Albuterol Sulfate 90 Mcg 8 Gm Inhaler) 2 puff INHALE Q4H PRN PRN Reason: Shortness Of Breath Or Wheezing Amlodipine Besylate (Amlodipine Besylate 2.5 Mg Tablet) 2.5 mg PO DAILY [facility]; Protocol Last Admin: 09/30/21 09:07 Dose: 2.5 mg Documented By: ABELARDO Ascorbic Acid (Ascorbic Acid 500 Mg Tablet) 500 mg PO DAILY [facility] Last Admin: 09/30/21 09:08 Dose: Not Given Documented By: ABELARDO Non-Admin Reason: NPO Aspirin (Aspirin Enteric Coated 81 Mg Tablet.) 81 mg PO DAILY [facility] Last Admin: 09/30/21 09:08 Dose: Not Given Documented By: ABELARDO Non-Admin Reason: NPO Calcium Carbonate (Calcium Carbonate 500 Mg Tablet) 1,500 mg PO DAILY [facility] Last Admin: 09/30/21 09:08 Dose: Not Given Documented By: ABELARDO Non-Admin Reason: NPO Clopidogrel Bisulfate (Clopidogrel Bisulfate 75 Mg Tablet) 75 mg PO DAILY [facility] Last Admin: 09/30/21 09:12 Dose: Not Given Documented By: ABELARDO Non-Admin Reason: NPO Dextrose (Dextrose 50 % 25 Gm/50 Ml Syringe) 25 gm IVPUSH Q15M PRN; Protocol PRN Reason: per Hypoglycemia Standing Ord. Docusate Sodium (Docusate Sodium 100 Mg Capsule) 100 mg PO DAILY PRN PRN Reason: Constipation Glucose (Glucose Gel 15 Gm Gel..Gram.) 15 gm PO Q15M PRN; Protocol PRN Reason: per Hypoglycemia Standing Ord. Heparin Sodium (Porcine) (Heparin Sodium,Porcine 5,000 Unit/Ml Vial) 5,000 unit SUBCUT 0700,1900 [facility] Last Admin: 09/30/21 06:49 Dose: Not Given Documented By: KANDICE Non-Admin Reason: hold per rn report, preop Lactated Ringer's (Lr) 1,000 mls @ 80 mls/hr IVCONT .[id number] [facility] Last Infusion: 09/30/21 06:06 Dose: 80 mls/hr Documented By: KANDICE Piperacillin Sod/Tazobactam (Sod 3.375 gm/ Sodium Chloride) 50 mls @ 100 mls/hr IV Q6H [facility] Last Infusion: 09/30/21 06:06 Dose: 0 mls/hr Documented By: KANDICE Sodium Chloride (Ns) 1,000 mls @ 100 mls/hr IVCONT .Q10H [facility] Vancomycin HCl 1,250 mg/ (Sodium Chloride) 250 mls @ 166.667 mls/hr IV Q24H [facility] Last Infusion: 09/29/21 21:15 Dose: 0 mls/hr Documented By: MAMTA Insulin Glargine (Insulin Glargine,Hum.Rec.Anlog 100 Unit/Ml 10 Ml Vial) 12 unit SUBCUT BEDTIME [facility] Last Admin: 09/29/21 21:17 Dose: Not Given Documented By: MAMTA Non-Admin Reason: NPO Comments: Per Dr Amaral, instructed to hold medication Insulin Human Lispro (Insulin Lispro 100 Unit/Ml 3 Ml Vial) 0.1 - 10 unit SUBCUT QIDACHS [facility]; Protocol Last Admin: 09/30/21 08:37 Dose: Not Given Documented By: ABELARDO Non-Admin Reason: No Insulin Coverage Ondansetron HCl (Ondansetron Hcl 4 Mg/2 Ml Vial) 4 mg IVPUSH Q8H PRN PRN Reason: Nausea and Vomiting Pharmacy Consult (Consult Rx Vancomycin Dosing) 1 each MISCELLANE DAILY PRN PRN Reason: Consult order Sodium Chloride (0.9 % Sodium Chloride Flush 3 Ml Syringe) 3 ml IVFLUSH QSHIFT [facility] Last Admin: 09/30/21 09:08 Dose: Not Given Documented By: ABELARDO Non-Admin Reason: IV Running Labs CBC & Chem 7: 09/30/21 05:51 09/30/21 05:51 Labs: Laboratory Results - last 24 hr 09/29/21 09/29/21 09/29/21 11:32 15:49 19:43 MCV MCH MCHC RDW Plt Count MPV Absolute Nucleated RBC Nucleated RBC % (auto) Anion Gap Estim Creat Clear Calc Estimated GFR POC Glucose 155 H 157 H 158 H Random Glucose Calcium 09/30/21 09/30/21 09/30/21 05:51 05:51 05:51 MCV 89.1 MCH 28.6 MCHC 32.2 RDW 13.3 Plt Count 249 MPV 9.2 L Absolute Nucleated RBC 0.000 Nucleated RBC % (auto) 0.0 Anion Gap 12 Estim Creat Clear Calc 55.1 53.4 Estimated GFR > 60 > 60 POC Glucose Random Glucose 167 H Calcium 9.7 D 09/30/21 07:39 MCV MCH MCHC RDW Plt Count MPV Absolute Nucleated RBC Nucleated RBC % (auto) Anion Gap Estim Creat Clear Calc Estimated GFR POC Glucose 140 H Random Glucose Calcium Assessment and Plan (1) PAD (peripheral artery disease): Status: Acute (2) Osteomyelitis: Status: Acute Plan 75-year-old male with past medical history of diabetes as well as PVD who presen ts to the hospital with necrotic right toe found to have osteomyelitis Osteomyelitis vanco/zosyn Seen by surgery and vascular recommended to continue IV antibiotics, may need vascular intervention Patient intermittently refuses treatments but talked to him in detail he is now agreeable. Discussed with Vascular, Will likely need amputation of 4th and 5th right toes ENRIQUE. Resolved likely prerenal in the setting of dehydration/infection on?IV fluid-improving follow BMP Diabetes 2 SS, ADA diet History of PVD continue Plavix no evidence of acute stenosis on arterial Dopplers. Patient intermittently refuses labs and medications-discussed with him with the help of manager process excellence-he agrees to continue antibiotic and lab draws. DVT prophylaxis:? Heparin subQ Attending Dr. Alonzo Continued hospitalization for foot osteomyelitis on iv antibiotic, vascular intervention needed while inpatient Quality Stroke Does the patient have a stroke diagnosis?: No VTE Prior VTE?: No VTE Risk Level:: Medical - moderate - high VTE Device Contraindication: Treatment Not Indicated VTE Drug Contraindication: N/A - Med Ordered
[2021-09-30 11:34] LABS: Glucose, Whole Blood 113 mg/dL (60-115)
[2021-09-30] MEDS: 0.9 % Sodium Chloride 1,000 ML 100 ML IVCONT ×3 (12:03→23:48)
--- NOTE | 2021-09-30 13:12 | P.OP_ITS ---
Operative Note Operative Note Date of Service: 09/30/21 Narrative: Angiogram report from [facility] Preoperative diagnosis: Atherosclerosis of right lower extremity with nonhealing ulcer Postoperative diagnosis: Same Procedure: 1. Ultrasound-guided left common femoral access 2. Aortogram with right lower extremity runoff Surgeon:Bird Anderson M.D., FACS, RPVI Photographic Aide:None Anesthesia: Local with moderate conscious sedation. Total intraservice moderate sedation time was 34 minutes. I monitored the patient's level of consciousness and physiologic status continuously throughout the procedure. Specimens:none Drains:none Estimated blood loss: Less than 10 ml Implant: None Indications: 75-year-old gentleman with a prior history of nonhealing right lower extremity ulcer presents for vascular evaluation. Once consent was obtained via son who has signed the informed consent after reviewing risks, complications, benefits, and alternatives previously discussed with the patient. The patient was given the opportunity to ask any additional questions or voice any concerns. All questions were answered to the patient's satisfaction. Procedure in detail: Patient was brought to the angiography suite prior to which a time-out was called for patient identification and site verification. Bilateral groins were prepped and draped in the standard surgical fashion. Under ultrasound guidance left common femoral was punctured with micro puncture needle and wire. Subsequently a precision 5 Turkish sheath was then placed. Sientra wire was advanced to the level of the aorta. 5 Turkish Flush catheter was brought up and parked at the level of the renal arteries. Aortogram was then undertaken. Catheter was brought down to the level of the iliac bifurcation. Iliacs were subsequently imaged. Catheter was then brought in up and over to the right side SFA. Runoff study was then undertaken. No intervention was indicated I. Catheter wire and sheath was removed. Direct pressure was held for 10 minutes. Patient tolerated the procedure well. Interpretation of films: 1. Ultrasound demonstrates appropriate femoral puncture. Image of which was saved. 2. Aortogram demonstrates appropriate caliber aorta. Minimal disease. Appropriate take-off of the renals. 3. Iliac images demonstrate no significant disease 4. Right Leg Common femoral artery: No significant disease Profundus Femoris: No significant disease Superficial femoral artery: Calcified and some mild stenosis but no flow- limiting stenosis noted Popliteal artery (p1,p2,p3): No disease in the popliteal noted Anterior tibial artery: Occludes right beyond origin Peroneal artery: Dominant runoff goes all the way down to the foot supplies anterior tibial Posterior tibial artery: Occluded Dorsalis pedis/plantar arch: Incomplete Conclusion: 1. Successful diagnostic angiogram with no intervention indicated. Poor runoff with no bypass options 2. Anticoagulation status: Continue with aspirin and Plavix This note is constructed using voice recognition software. While every effort has been made to ensure accuracy, digitizer operator errors may have been included. Thank you for allowing me to participate in the care of your patient. Yours sincerely, Bird Anderson MD, FACS, R.P.V.I.
[2021-09-30 16:22] LABS: Glucose, Whole Blood 108 mg/dL (60-115)
[2021-09-30] MEDS: vancomycin HCL 1,250 MG in 0.9 % Sodium Chloride 250 ML 166.67 MG IV (19:47)
[2021-09-30] MEDS: Insulin Glargine,Hum.rec.anlog 100 UNIT/ML 10 ML VIAL 12 UNIT SUBCUT (19:56)
[2021-09-30] MEDS: Heparin Sodium,Porcine 5,000 UNIT/ML VIAL 5000 UNIT SUBCUT (19:56)
[2021-09-30] MEDS: Insulin Lispro 100 UNIT/ML 3 ML VIAL SUBCUT (19:56)
[2021-09-30 20:22] LABS: Glucose, Whole Blood 203 mg/dL (60-115)
[2021-10-01 03:22] VITALS: BP 146/67; PULSE 83; RESP 17; TEMP 36.5; O2SAT 99
[2021-10-01] MEDS: Heparin Sodium,Porcine 5,000 UNIT/ML VIAL 5000 UNIT SUBCUT ×2 (05:55→21:21)
[2021-10-01] MEDS: Piperacillin Sodium/Tazobactam 3.375 GM in 0.9 % Sodium Chloride 50 ML IV ×4 (05:55→22:18)
[2021-10-01 07:43] VITALS: BP 162/75; PULSE 83; RESP 16; TEMP 36.4; O2SAT 96
[2021-10-01 07:50] LABS: Glucose, Whole Blood 138 mg/dL (60-115)
[2021-10-01] MEDS: 0.9 % Sodium Chloride 1,000 ML 100 ML IVCONT (08:54)
[2021-10-01] MEDS: Aspirin Enteric Coated 81 MG TABLET.DR PO (08:55)
[2021-10-01] MEDS: Clopidogrel Bisulfate 75 MG TABLET PO (08:56)
[2021-10-01] MEDS: Ascorbic Acid 500 MG TABLET PO (08:56)
[2021-10-01] MEDS: amLODIPine Besylate 2.5 MG TABLET PO (08:56)
--- NOTE | 2021-10-01 10:08 | HO.VASCPN ---
Subjective Subjective Date of Service: 10/01/21 Patient reports: no new complaints and feels better Interval history: Pleasant 75-year-old gentleman presents for follow-up regarding nonhealing right lower extremity ulcers 4th and 5th digits. They continue to be a source discomfort. Fourth toe is gangrenous and has fair amount of drainage. He has undergone diagnostic angiogram. Of note he has 1 vessel runoff. He now presents for follow-up Physical Exam Vital Signs: Vital Signs: Last Vital Signs Temp 97.6 F 10/01/21 07:43 Pulse 83 10/01/21 07:43 Resp 16 10/01/21 07:43 BP 162/75 H 10/01/21 07:43 Pulse Ox 96 10/01/21 07:43 O2 Del Method 10/01/21 07:43 BMI result Body Mass Index 25.7 Const: General: cooperative, healthy appearing and no acute distress Orientation/consciousness: oriented to person, oriented to place and oriented to time HEENT: Head: Yes normal to inspection Neck: Carotids: no bruits Chest: Chest palpation & inspection: normal inspection of the chest Resp: Effort & Inspection: normal respiratory effort and able to speak in complete sentences Auscultation: clear to auscultation bilaterally Cardio: Rate: regular rate Heart sounds: S1 normal heart sound present and S2 normal heart sound present GI: Inspection: Yes normal to inspection Skin: General skin exam: no rashes or lesions noted Wounds: wounds noted (Right 4th toe gangrene) Neuro: General: oriented to person, oriented to place, oriented to time and CN's II-XI intact bilaterally Extrem: General: Yes normal to inspection, Yes full ROM and Yes no clubbing, cyanosis or edema Psych: Appearance: grossly normal and well kempt Speech and movement: Normal speech and movement present Affect: normal affect Progress Note: A&P Assessment and plan (1) PAD (peripheral artery disease): Status: Acute Assessment and Plan: In short patient has nonhealing right foot ulceration. He will require right 4th and 5th toe amputation. The right 4th toe is gangrenous and the 5th toe will not be viable once the 4th toe is amputated. This was discussed with the patient's son who is the healthcare proxy. He is in agreement and would like to proceed forward. Thank you for allowing us to participate in his care. If there are any questions or concerns please do not hesitate to contact us. Time Spent With Patient Time: Total time spent is greater than 50% in coordination of care (as documented) at patient's floor/unit and/or counseling patient: Procedures Date of Service Date of Service: 10/01/21 Quality Stroke Does the patient have a stroke diagnosis?: No VTE Prior VTE?: No VTE Risk Level:: Medical - moderate - high VTE Device Contraindication: Treatment Not Indicated VTE Drug Contraindication: N/A - Med Ordered
[2021-10-01 10:30] LABS: Creatinine Clr Calc Pharmacy 42.4; Estimated Glomerular Filt Rate 58
[2021-10-01 11:43] LABS: Glucose, Whole Blood 145 mg/dL (60-115)
[2021-10-01 11:46] VITALS: BP 171/88; PULSE 94; RESP 16; TEMP 36.3; O2SAT 96
--- NOTE | 2021-10-01 11:58 | P.PNIM_ITS ---
Subjective Subjective Date of Service: 10/01/21 Interval History: cc: necrotic toes interval history:no pain Cardiovascular Cardiovascular: Reports no additional cardiovascular complaints Respiratory Respiratory: Reports no additional respiratory complaints Physical Exam Vital Signs: Vital Signs: Last Vital Signs Temp 97.3 F 10/01/21 11:46 Pulse 94 10/01/21 11:46 Resp 16 10/01/21 11:46 BP 171/88 H 10/01/21 11:46 Pulse Ox 96 10/01/21 11:46 O2 Del Method 10/01/21 11:46 BMI result Body Mass Index 25.7 Appearing in no acute distress LSCTA HRRR abd soft Alert and oriented Objective Data Active Medications Acetaminophen (Acetaminophen 325 Mg Tablet) 650 mg PO Q6H PRN PRN Reason: Pain, Mild (Pain Scale 1-3) Albuterol Sulfate (Albuterol Sulfate 90 Mcg 8 Gm Inhaler) 2 puff INHALE Q4H PRN PRN Reason: Shortness Of Breath Or Wheezing Amlodipine Besylate (Amlodipine Besylate 2.5 Mg Tablet) 2.5 mg PO DAILY [facility]; Protocol Last Admin: 10/01/21 08:56 Dose: 2.5 mg Documented By: VIOLETTE Ascorbic Acid (Ascorbic Acid 500 Mg Tablet) 500 mg PO DAILY [facility] Last Admin: 10/01/21 08:56 Dose: 500 mg Documented By: VIOLETTE Aspirin (Aspirin Enteric Coated 81 Mg Tablet.) 81 mg PO DAILY [facility] Last Admin: 10/01/21 08:55 Dose: 81 mg Documented By: VIOLETTE Calcium Carbonate (Calcium Carbonate 500 Mg Tablet) 1,500 mg PO DAILY [facility] Last Admin: 10/01/21 08:56 Dose: 1,500 mg Documented By: VIOLETTE Clopidogrel Bisulfate (Clopidogrel Bisulfate 75 Mg Tablet) 75 mg PO DAILY [facility] Last Admin: 10/01/21 08:56 Dose: 75 mg Documented By: VIOLETTE Dextrose (Dextrose 50 % 25 Gm/50 Ml Syringe) 25 gm IVPUSH Q15M PRN; Protocol PRN Reason: per Hypoglycemia Standing Ord. Docusate Sodium (Docusate Sodium 100 Mg Capsule) 100 mg PO DAILY PRN PRN Reason: Constipation Glucose (Glucose Gel 15 Gm Gel..Gram.) 15 gm PO Q15M PRN; Protocol PRN Reason: per Hypoglycemia Standing Ord. Heparin Sodium (Porcine) (Heparin Sodium,Porcine 5,000 Unit/Ml Vial) 5,000 unit SUBCUT 0700,1900 [facility] Last Admin: 10/01/21 05:55 Dose: 5,000 unit Documented By: VANDANA Piperacillin Sod/Tazobactam (Sod 3.375 gm/ Sodium Chloride) 50 mls @ 100 mls/hr IV Q6H [facility] Last Infusion: 10/01/21 06:29 Dose: 0 mls/hr Documented By: VANDANA Sodium Chloride (Ns) 1,000 mls @ 100 mls/hr IVCONT .Q10H [facility] Last Admin: 10/01/21 08:54 Dose: 100 mls/hr Documented By: VIOLETTE Vancomycin HCl 1,250 mg/ (Sodium Chloride) 250 mls @ 166.667 mls/hr IV Q24H [facility] Last Infusion: 09/30/21 21:25 Dose: 0 mls/hr Documented By: VANDANA Insulin Glargine (Insulin Glargine,Hum.Rec.Anlog 100 Unit/Ml 10 Ml Vial) 12 unit SUBCUT BEDTIME [facility] Last Admin: 09/30/21 19:56 Dose: 12 unit Documented By: VANDANA Insulin Human Lispro (Insulin Lispro 100 Unit/Ml 3 Ml Vial) 0.1 - 10 unit SUBCUT QIDACHS [facility]; Protocol Last Admin: 10/01/21 08:50 Dose: Not Given Documented By: VIOLETTE Non-Admin Reason: No Insulin Coverage Ondansetron HCl (Ondansetron Hcl 4 Mg/2 Ml Vial) 4 mg IVPUSH Q8H PRN PRN Reason: Nausea and Vomiting Pharmacy Consult (Consult Rx Vancomycin Dosing) 1 each MISCELLANE DAILY PRN PRN Reason: Consult order Sodium Chloride (0.9 % Sodium Chloride Flush 3 Ml Syringe) 3 ml IVFLUSH QSHIFT [facility] Last Admin: 10/01/21 07:32 Dose: Not Given Documented By: VIOLETTE Non-Admin Reason: IV Running Labs CBC & Chem 7: 09/30/21 05:51 10/01/21 09:47 Labs: Laboratory Results - last 24 hr 09/30/21 09/30/21 10/01/21 16:18 19:50 07:46 Estim Creat Clear Calc Estimated GFR POC Glucose 108 203 H 138 H 10/01/21 10/01/21 09:47 11:39 Estim Creat Clear Calc 42.4 Estimated GFR 58 POC Glucose 145 H Microbiology Microbiology Results: Microbiology 09/25/21 21:49 Blood Culture - Final Blood - Venous No growth after 5 days. 09/25/21 21:49 Blood Culture - Final Blood - Venous No growth after 5 days. Assessment and Plan (1) PAD (peripheral artery disease): Status: Acute (2) Osteomyelitis: Status: Acute Plan 75-year-old male with past medical history of diabetes as well as PVD who presents to the hospital with necrotic right toe found to have osteomyelitis Osteomyelitis vanco/zosyn Seen by surgery and vascular recommended to continue IV antibiotics s/p angio - see report plan for amp of 4th and 5th toes tomorrow 10/02/21 ENRIQUE. Resolved likely prerenal in the setting of dehydration/infection follow BMP Diabetes 2 SS, ADA diet History of PVD continue Plavix, asa no evidence of acute stenosis on arterial Dopplers. htn amlodipnie DVT prophylaxis:? Heparin subQ Continued hospitalization for foot osteomyelitis on iv antibiotic, plan for amputation Quality Stroke Does the patient have a stroke diagnosis?: No VTE Prior VTE?: No VTE Risk Level:: Medical - moderate - high VTE Device Contraindication: Treatment Not Indicated VTE Drug Contraindication: N/A - Med Ordered
[2021-10-01 15:08] VITALS: BP 171/78; PULSE 93; RESP 16; TEMP 36.8; O2SAT 94
[2021-10-01 16:43] LABS: Glucose, Whole Blood 187 mg/dL (60-115)
[2021-10-01] MEDS: Insulin Lispro 100 UNIT/ML 3 ML VIAL SUBCUT (17:06)
[2021-10-01 20:00] VITALS: BP 160/65; PULSE 90; RESP 18; TEMP 36.6; O2SAT 96
[2021-10-01 20:55] LABS: Glucose, Whole Blood 131 mg/dL (60-115)
[2021-10-01] MEDS: Insulin Glargine,Hum.rec.anlog 100 UNIT/ML 10 ML VIAL 12 UNIT SUBCUT (21:21)
[2021-10-01] MEDS: DAPTOmycin 500 MG in 0.9 % Sodium Chloride 50 ML 120 MG IV (21:21)
[2021-10-01 23:38] VITALS: BP 153/72; PULSE 83; RESP 17; TEMP 36.3; O2SAT 95
[2021-10-02] VITALS (10 sets, daily range): BP systolic 130–177; BP diastolic 64–85; PULSE 72–98; RESP 14–18; TEMP 36.1–36.6; O2SAT 93–99
[2021-10-02] MEDS: 0.9 % Sodium Chloride 1,000 ML 100 ML IVCONT (01:27)
[2021-10-02] MEDS: Piperacillin Sodium/Tazobactam 3.375 GM in 0.9 % Sodium Chloride 50 ML IV ×4 (06:02→23:18)
[2021-10-02 07:52] LABS: Glucose, Whole Blood 86 mg/dL (60-115)
--- NOTE | 2021-10-02 08:08 | HO.ANESPROP2 ---
[facility] Active Problems Active Problems: All Active Problems (Updated 09/26/21 @ 11:58 by Bird Anderson MD) PAD (peripheral artery disease) (Acute) ENRIQUE (acute kidney injury) (Acute) Necrosis of toe (Acute) Osteomyelitis (Acute) Anemia (Acute) Diabetic neuropathy associated with diabetes mellitus due to underlying condition (Acute) Neurogenic urinary bladder disorder (Acute) COVID-19 (Acute) Chronic cerebral infarction assoc w/ with systemic hypoxia or ischemia (Acute) Cerebral microvascular disease (Acute) Vertebral artery stenosis (Acute) Diabetic foot ulcer associated with diabetes mellitus due to underlying condition (Acute) UTI (urinary tract infection) (Acute) Acute kidney injury superimposed on CKD (Acute) Acute UTI (Acute) Balanitis (Acute) Enlarged prostate (Acute) Paraphimosis (Acute) Hematuria (Acute) Weak urinary stream (Acute) CVA (cerebral vascular accident) (Acute) Dysphagia (Acute) Open wnd foot-complicated (Acute) Hypertension (Acute) Hiatal hernia (Acute) Arthritis (Acute) Past Medical History Medical History Anemia Arthritis Asthma Atherosclerosis of [place] arteries of right leg with ulceration of heel and midfoot BPH w urinary obs/LUTS Candidiasis of penis Cholelithiasis Decubitus ulcer of right foot Diabetes mellitus, type 2 [address]verticulosis [address] catheter in place Hiatal hernia Hydronephrosis Hyperlipidemia Hypertension PVD (peripheral vascular disease) Sepsis Severe sepsis Wheelchair dependence Surgical History Surgical History H/O hernia repair Status post below-knee amputation of left lower extremity History of Problems with Anesthesia: No Social History Social History Household Members: Other 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 Housing: Senior Living Do you presently have visiting nurse or other home services: No Alcohol intake: never Patient Tobacco Use Status: Never used Tobacco Second Hand Smoke Exposure: No Advance Directives Date on File: 09/25/21 service: No Current occupational status: retired Meds Allergies Allergy/AdvReac Type Severity Reaction Status Date / Time No Known Allergies Allergy Verified 09/30/21 11:27 [No Known Allergies*] Active Medications: Current Medications Acetaminophen (Acetaminophen 325 Mg Tablet) 650 mg PO Q6H PRN PRN Reason: Pain, Mild (Pain Scale 1-3) Albuterol Sulfate (Albuterol Sulfate 90 Mcg 8 Gm Inhaler) 2 puff INHALE Q4H PRN PRN Reason: Shortness Of Breath Or Wheezing Amlodipine Besylate (Amlodipine Besylate 2.5 Mg Tablet) 2.5 mg PO DAILY [facility]; Protocol Last Admin: 10/01/21 08:56 Dose: 2.5 mg Ascorbic Acid (Ascorbic Acid 500 Mg Tablet) 500 mg PO DAILY [facility] Last Admin: 10/01/21 08:56 Dose: 500 mg Aspirin (Aspirin Enteric Coated 81 Mg Tablet.Dr) 81 mg PO DAILY [facility] Last Admin: 10/01/21 08:55 Dose: 81 mg Calcium Carbonate (Calcium Carbonate 500 Mg Tablet) 1,500 mg PO DAILY [facility] Last Admin: 10/01/21 08:56 Dose: 1,500 mg Clopidogrel Bisulfate (Clopidogrel Bisulfate 75 Mg Tablet) 75 mg PO DAILY [facility] Last Admin: 10/01/21 08:56 Dose: 75 mg Dextrose (Dextrose 50 % 25 Gm/50 Ml Syringe) 25 gm IVPUSH Q15M PRN; Protocol PRN Reason: per Hypoglycemia Standing Ord. Docusate Sodium (Docusate Sodium 100 Mg Capsule) 100 mg PO DAILY PRN PRN Reason: Constipation Glucose (Glucose Gel 15 Gm Gel..Gram.) 15 gm PO Q15M PRN; Protocol PRN Reason: per Hypoglycemia Standing Ord. Heparin Sodium (Porcine) (Heparin Sodium,Porcine 5,000 Unit/Ml Vial) 5,000 unit SUBCUT 0700,1900 [facility] Last Admin: 10/02/21 06:07 Dose: Not Given Piperacillin Sod/Tazobactam (Sod 3.375 gm/ Sodium Chloride) 50 mls @ 100 mls/hr IV Q6H [facility] Last Infusion: 10/02/21 06:38 Dose: Infused Sodium Chloride (Ns) 1,000 mls @ 100 mls/hr IVCONT .Q10H [facility] Last Admin: 10/02/21 01:27 Dose: 100 mls/hr Daptomycin 500 mg/ Sodium (Chloride) 60 mls @ 120 mls/hr IV Q24H [facility] Last Infusion: 10/01/21 22:13 Dose: Infused Insulin Glargine (Insulin Glargine,Hum.Rec.Anlog 100 Unit/Ml 10 Ml Vial) 12 unit SUBCUT BEDTIME [facility] Last Admin: 10/01/21 21:21 Dose: 12 unit Insulin Human Lispro (Insulin Lispro 100 Unit/Ml 3 Ml Vial) 0.1 - 10 unit SUBCUT QIDACHS [facility]; Protocol Last Admin: 10/02/21 08:07 Dose: Not Given Ondansetron HCl (Ondansetron Hcl 4 Mg/2 Ml Vial) 4 mg IVPUSH Q8H PRN PRN Reason: Nausea and Vomiting Pharmacy Consult (Consult Rx Vancomycin Dosing) 1 each MISCELLANE DAILY PRN PRN Reason: Consult order Sodium Chloride (0.9 % Sodium Chloride Flush 3 Ml Syringe) 3 ml IVFLUSH QSHIFT [facility] Last Admin: 10/02/21 08:07 Dose: Not Given Home Medications Medication Instructions Recorded Confirmed Last Taken Type acetaminophen 325 mg capsule 650 mg PO QID PRN Pain 06/21/20 09/26/21 09/01/21 History pen needle, diabetic 32 gauge x #50 ea 09/19/20 09/26/21 Unknown History insulin aspart U-100 100 unit/mL See Protocol subcut TIDAC 09/26/21 09/26/21 09/25/21 History (3 mL) subcutaneous pen (Novolog Flexpen U-100 Insulin aspart) insulin glargine 100 unit/mL (3 12 unit subcut BEDTIME 09/26/21 09/26/21 09/24/21 History mL) subcutaneous pen (Lantus Solostar U-100 Insulin) levofloxacin 500 mg tablet 1 tab PO DAILY 09/26/21 09/26/21 09/24/21 History Exam Exam Date and Time: October 02, 2021 0808 Height,Weight and Vital Signs: Height 5 ft 4 in Weight 68.039 kg Last Vital Signs Temp 97.4 F 10/02/21 07:57 Pulse 91 10/02/21 07:57 Resp 18 10/02/21 07:57 BP 177/85 H 10/02/21 07:57 Pulse Ox 95 10/02/21 07:57 O2 Del Method 10/02/21 07:57 Pertinent Lab Results Pertinent Lab Results: Laboratory Tests 09/25/21 09/25/21 09/25/21 21:49 21:49 21:49 WBC 5.6 RBC 3.91 L Hgb 11.3 L Hct 34.7 L MCV 88.7 MCH 28.9 MCHC 32.6 RDW 13.7 Plt Count 249 MPV 8.4 L Immature Gran % (Auto) 0.5 H Neut % (Auto) 69.5 Lymph % (Auto) 16.3 L [place] % (Auto) 8.2 Eos % (Auto) 5.0 H Baso % (Auto) 0.5 Lymph # (Auto) 0.9 L [place] # (Auto) 0.5 Eos # (Auto) 0.3 Baso # (Auto) 0.0 Abs Immat Gran (auto) 0.03 Absolute Neuts (auto) 3.9 Absolute Nucleated RBC 0.000 Nucleated RBC % (auto) 0.0 PT 12.6 INR 1.1 Sodium 137 Potassium 3.8 Chloride 103 Carbon Dioxide 26 Anion Gap 12 BUN 29 H Creatinine 1.28 Estim Creat Clear Calc 40.4 Estimated GFR 54 POC Glucose Random Glucose 223 H D Lactic Acid Calcium 8.2 L Total Bilirubin 0.3 Direct Bilirubin 0.2 AST 11 ALT 8 Alkaline Phosphatase 107 Total Protein 6.7 Albumin 3.4 L COVID-19 ([facility]) COVID-19 Clin Com 09/25/21 09/25/21 09/26/21 21:49 21:49 07:56 WBC RBC Hgb Hct MCV MCH MCHC RDW Plt Count MPV Immature Gran % (Auto) Neut % (Auto) Lymph % (Auto) [place] % (Auto) Eos % (Auto) Baso % (Auto) Lymph # (Auto) [place] # (Auto) Eos # (Auto) Baso # (Auto) Abs Immat Gran (auto) Absolute Neuts (auto) Absolute Nucleated RBC Nucleated RBC % (auto) PT INR Sodium Potassium Chloride Carbon Dioxide Anion Gap BUN Creatinine Estim Creat Clear Calc Estimated GFR POC Glucose 164 H Random Glucose Lactic Acid 0.7 Calcium Total Bilirubin Direct Bilirubin AST ALT Alkaline Phosphatase Total Protein Albumin COVID-19 ([facility]) Negative COVID-19 Clin Com See Note 09/26/21 09/26/21 09/27/21 12:33 21:09 07:31 WBC RBC Hgb Hct MCV MCH MCHC RDW Plt Count MPV Immature Gran % (Auto) Neut % (Auto) Lymph % (Auto) [place] % (Auto) Eos % (Auto) Baso % (Auto) Lymph # (Auto) [place] # (Auto) Eos # (Auto) Baso # (Auto) Abs Immat Gran (auto) Absolute Neuts (auto) Absolute Nucleated RBC Nucleated RBC % (auto) PT INR Sodium Potassium Chloride Carbon Dioxide Anion Gap BUN Creatinine Estim Creat Clear Calc Estimated GFR POC Glucose 154 H 220 H 151 H Random Glucose Lactic Acid Calcium Total Bilirubin Direct Bilirubin AST ALT Alkaline Phosphatase Total Protein Albumin COVID-19 ([facility]) COVID-19 Clin Com 09/27/21 09/27/21 09/27/21 12:26 16:41 16:49 WBC RBC Hgb Hct MCV MCH MCHC RDW Plt Count MPV Immature Gran % (Auto) Neut % (Auto) Lymph % (Auto) [place] % (Auto) Eos % (Auto) Baso % (Auto) Lymph # (Auto) [place] # (Auto) Eos # (Auto) Baso # (Auto) Abs Immat Gran (auto) Absolute Neuts (auto) Absolute Nucleated RBC Nucleated RBC % (auto) PT INR Sodium 141 Potassium 4.3 Chloride 105 Carbon Dioxide 30 H Anion Gap 10 L BUN 20 H Creatinine 1.01 Estim Creat Clear Calc 51.2 Estimated GFR > 60 POC Glucose 117 H 156 H Random Glucose 183 H Lactic Acid Calcium 8.9 D Total Bilirubin Direct Bilirubin AST ALT Alkaline Phosphatase Total Protein Albumin COVID-19 ([facility]) COVID-19 [facility] 09/27/21 09/28/21 09/28/21 19:45 07:32 11:38 WBC RBC Hgb Hct MCV MCH MCHC RDW Plt Count MPV Immature Gran % (Auto) Neut % (Auto) Lymph % (Auto) [place] % (Auto) Eos % (Auto) Baso % (Auto) Lymph # (Auto) [place] # (Auto) Eos # (Auto) Baso # (Auto) Abs Immat Gran (auto) Absolute Neuts (auto) Absolute Nucleated RBC Nucleated RBC % (auto) PT INR Sodium Potassium Chloride Carbon Dioxide Anion Gap BUN Creatinine Estim Creat Clear Calc Estimated GFR POC Glucose 207 H 156 H 189 H Random Glucose Lactic Acid Calcium Total Bilirubin Direct Bilirubin AST ALT Alkaline Phosphatase Total Protein Albumin COVID-19 ([facility]) COVID-19 Clin Com 09/28/21 09/28/21 09/28/21 15:33 15:50 20:01 WBC RBC Hgb Hct MCV MCH MCHC RDW Plt Count MPV Immature Gran % (Auto) Neut % (Auto) Lymph % (Auto) [place] % (Auto) Eos % (Auto) Baso % (Auto) Lymph # (Auto) [place] # (Auto) Eos # (Auto) Baso # (Auto) Abs Immat Gran (auto) Absolute Neuts (auto) Absolute Nucleated RBC Nucleated RBC % (auto) PT INR Sodium Potassium Chloride Carbon Dioxide Anion Gap BUN 17 H Creatinine 0.98 Estim Creat Clear Calc 52.8 Estimated GFR > 60 POC Glucose 216 H 139 H Random Glucose Lactic Acid Calcium Total Bilirubin Direct Bilirubin AST ALT Alkaline Phosphatase Total Protein Albumin COVID-19 ([facility]) COVID-19 [facility] 09/29/21 09/29/21 09/29/21 06:07 07:19 11:32 WBC RBC Hgb Hct MCV MCH MCHC RDW Plt Count MPV Immature Gran % (Auto) Neut % (Auto) Lymph % (Auto) [place] % (Auto) Eos % (Auto) Baso % (Auto) Lymph # (Auto) [place] # (Auto) Eos # (Auto) Baso # (Auto) Abs Immat Gran (auto) Absolute Neuts (auto) Absolute Nucleated RBC Nucleated RBC % (auto) PT INR Sodium Potassium Chloride Carbon Dioxide Anion Gap BUN Creatinine 0.85 Estim Creat Clear Calc 60.9 Estimated GFR > 60 POC Glucose 89 155 H Random Glucose Lactic Acid Calcium Total Bilirubin Direct Bilirubin AST ALT Alkaline Phosphatase Total Protein Albumin COVID-19 ([facility]) COVID-19 [facility] 09/29/21 09/29/21 09/30/21 15:49 19:43 05:51 WBC RBC Hgb Hct MCV MCH MCHC RDW Plt Count MPV Immature Gran % (Auto) Neut % (Auto) Lymph % (Auto) [place] % (Auto) Eos % (Auto) Baso % (Auto) Lymph # (Auto) [place] # (Auto) Eos # (Auto) Baso # (Auto) Abs Immat Gran (auto) Absolute Neuts (auto) Absolute Nucleated RBC Nucleated RBC % (auto) PT INR Sodium Potassium Chloride Carbon Dioxide Anion Gap BUN Creatinine 0.94 Estim Creat Clear Calc 55.1 Estimated GFR > 60 POC Glucose 157 H 158 H Random Glucose Lactic Acid Calcium Total Bilirubin Direct Bilirubin AST ALT Alkaline Phosphatase Total Protein Albumin COVID-19 ([facility]) COVID-19 [facility] 09/30/21 09/30/21 09/30/21 05:51 05:51 07:39 WBC 5.4 RBC 4.12 L Hgb 11.8 L Hct 36.7 L MCV 89.1 MCH 28.6 MCHC 32.2 RDW 13.3 Plt Count 249 MPV 9.2 L Immature Gran % (Auto) Neut % (Auto) Lymph % (Auto) [place] % (Auto) Eos % (Auto) Baso % (Auto) Lymph # (Auto) [place] # (Auto) Eos # (Auto) Baso # (Auto) Abs Immat Gran (auto) Absolute Neuts (auto) Absolute Nucleated RBC 0.000 Nucleated RBC % (auto) 0.0 PT INR Sodium 141 Potassium 3.9 Chloride 103 Carbon Dioxide 30 H Anion Gap 12 BUN 13 Creatinine 0.97 Estim Creat Clear Calc 53.4 Estimated GFR > 60 POC Glucose 140 H Random Glucose 167 H Lactic Acid Calcium 9.7 D Total Bilirubin Direct Bilirubin AST ALT Alkaline Phosphatase Total Protein Albumin COVID-19 ([facility]) COVID-19 [place] 09/30/21 09/30/21 09/30/21 11:31 16:18 19:50 WBC RBC Hgb Hct MCV MCH MCHC RDW Plt Count MPV Immature Gran % (Auto) Neut % (Auto) Lymph % (Auto) [place] % (Auto) Eos % (Auto) Baso % (Auto) Lymph # (Auto) [place] # (Auto) Eos # (Auto) Baso # (Auto) Abs Immat Gran (auto) Absolute Neuts (auto) Absolute Nucleated RBC Nucleated RBC % (auto) PT INR Sodium Potassium Chloride Carbon Dioxide Anion Gap BUN Creatinine Estim Creat Clear Calc Estimated GFR POC Glucose 113 108 203 H Random Glucose Lactic Acid Calcium Total Bilirubin Direct Bilirubin AST ALT Alkaline Phosphatase Total Protein Albumin COVID-19 ([facility]) COVID-19 Clin Com 10/01/21 10/01/21 10/01/21 07:46 09:47 11:39 WBC RBC Hgb Hct MCV MCH MCHC RDW Plt Count MPV Immature Gran % (Auto) Neut % (Auto) Lymph % (Auto) [place] % (Auto) Eos % (Auto) Baso % (Auto) Lymph # (Auto) [place] # (Auto) Eos # (Auto) Baso # (Auto) Abs Immat Gran (auto) Absolute Neuts (auto) Absolute Nucleated RBC Nucleated RBC % (auto) PT INR Sodium Potassium Chloride Carbon Dioxide Anion Gap BUN Creatinine 1.22 Estim Creat Clear Calc 42.4 Estimated GFR 58 POC Glucose 138 H 145 H Random Glucose Lactic Acid Calcium Total Bilirubin Direct Bilirubin AST ALT Alkaline Phosphatase Total Protein Albumin COVID-19 ([facility]) COVID-19 Clin Com 10/01/21 10/01/21 10/02/21 16:36 20:50 07:35 WBC RBC Hgb Hct MCV MCH MCHC RDW Plt Count MPV Immature Gran % (Auto) Neut % (Auto) Lymph % (Auto) [place] % (Auto) Eos % (Auto) Baso % (Auto) Lymph # (Auto) [place] # (Auto) Eos # (Auto) Baso # (Auto) Abs Immat Gran (auto) Absolute Neuts (auto) Absolute Nucleated RBC Nucleated RBC % (auto) PT INR Sodium Potassium Chloride Carbon Dioxide Anion Gap BUN Creatinine Estim Creat Clear Calc Estimated GFR POC Glucose 187 H 131 H 86 Random Glucose Lactic Acid Calcium Total Bilirubin Direct Bilirubin AST ALT Alkaline Phosphatase Total Protein Albumin COVID-19 ([facility]) COVID-19 Clin Com Airway Mallampati Class: II TM Dist: >3cm Neck ROM: Full Loose/Missing/Broken Teeth: Yes, Upper and Lower Heart: RRR Lungs: CTA Assessment and Plan Assessment Anesthesia Assessment: Anesthesia Plan Discussed and Chart Reviewed Final Anesthetic Review History of Problems with Anesthesia: No NPO: Yes ASA Class: III Final Preanesthetic Review: Meds/Allgs Chart Reviewed, Consent Obtained/Reviewed and Anes Risks/Benef Reviewed Patient Risk: Intermediate Procedure Risk: Low Anesthetic Plan Anesthetic Plan: GA Disposition: Standard PACU
--- NOTE | 2021-10-02 08:33 | MHC.SHP ---
Pre-Procedural Eval Section A Date of Service: 10/02/21 The patient is an INPATIENT: Yes Changes since office visit: Yes Patient answered all questions The History & Physical has been completed within 30 days and I have reviewed it.: Yes Section B Chief Complaint: RIGHT LEG,PAD Allergies: Allergies Allergy/AdvReac Type Severity Reaction Status Date / Time No Known Allergies Allergy Verified 09/30/21 11:27 [No Known Allergies*] Plan I have reviewed the history and physical and performed a pertinent physical examination on my patient. No changes have occurred unless specified.
[2021-10-02] MEDS: Lactated Ringers 1,000 ML 50 ML IVCONT ×2 (08:46→21:19)
[2021-10-02 08:57] LABS: Hemoglobin 11.4 g/dl (14.0-18.0); Mean Corpuscular HGB Conc 32.6 g/dl (31.0-36.0); Mean Corpuscular Hemoglobin 29.2 pg (27.0-33.0); Mean Corpuscular Volume 89.7 fL (80.0-98.0); Mean Platelet Volume 9.1 fL (9.4-12.4); Platelet Count 237 X10*3/uL (160-400); Red Cell Distribution Width 13.6 % (11.0-16.0)
[2021-10-02 09:12] LABS: Anion Gap 14 (12-20); Blood Urea Nitrogen 13 mg/dL (9-16); Calcium 9.3 mg/dL (8.4-10.2); Carbon Dioxide 29 mmol/L (22-29); Chloride 105 mmol/L (96-108); Creatinine Clr Calc Pharmacy 48.4; Estimated Glomerular Filt Rate > 60; Glucose Fasting 86 mg/dL (60-99); Potassium 3.5 mmol/L (3.3-5.1); Sodium 144 mmol/L (135-145)
--- NOTE | 2021-10-02 11:01 | W.PM.OPN ---
Operative Note Operative Note Date of Service: 10/02/21 Narrative: Operative note by [facility] Preoperative diagnosis: Nonhealing gangrenous right 4th and 5th toe diabetic foot ulceration Postoperative diagnosis: Same Procedure: Right 4th and 5th toe ray amputation Surgeon:Bird Anderson M.D. Laboratory Veterinarian: None Anesthesia: Local and sedation performed by Anesthesia Dr. [place] Specimens: 1 Drains: None Estimated blood loss: Minimal Indications: Very pleasant 75-year-old gentleman presents for amputation of right 4th and 5th toe. He had a prior angiogram demonstrating tenuous blood supply. Risks benefits complications were discussed in detail with the patient with park interpreter present. In addition yesterday I personally call the son and discussed the case with him as well. The patient has signed the informed consent after reviewing risks, complications, benefits, and alternatives previously discussed with the patient. The patient was given the opportunity to ask any additional questions or voice any concerns. All questions were answered to the patient's satisfaction. Procedure in detail: Patient was brought to the operating room prior to which a time-out was called for patient identification and site verification. Right leg was prepped and draped in standard surgical fashion. Curvilinear fishmouth incision was made over the right 4th and 5th toe. This was resected back to the metatarsal head. We removed the toes. It was recognized that the incision due to the amount of skin damage would not close. We had to resect back on to the metatarsal head using a TPX power saw. Once this was accomplished the wound was thoroughly irrigated out. Adequate hemostasis was achieved. We reapproximated the deep layer with 2-0 Polysorb superficial layer with 2-0 Polysorb and then finally skin with a mattress 3-0 nylon and skin fern. At the end the case sponge instrument counts were correct. Patient tolerated the procedure well and was recovered to the recovery with stable vitals. This note is constructed using voice recognition software. While every effort has been made to ensure accuracy, tree fruit and nut crops farmer errors may have been included. Thank you for allowing me to participate in the care of your patient. Yours sincerely, Bird Anderson MD, FACS, R.P.V.I.
[2021-10-02 11:29] LABS: Glucose, Whole Blood 72 mg/dL (60-115)
[2021-10-02] MEDS: Clopidogrel Bisulfate 75 MG TABLET PO (11:38)
[2021-10-02] MEDS: Aspirin Enteric Coated 81 MG TABLET.DR PO (11:38)
[2021-10-02] MEDS: Ascorbic Acid 500 MG TABLET PO (11:38)
[2021-10-02] MEDS: amLODIPine Besylate 2.5 MG TABLET PO (11:38)
--- NOTE | 2021-10-02 12:12 | HO.PM.IMPN ---
Subjective Subjective Date of Service: 10/02/21 Interval History: cc: necrotic toes interval history:no pain Cardiovascular Cardiovascular: Reports no additional cardiovascular complaints Respiratory Respiratory: Reports no additional respiratory complaints Physical Exam Vital Signs: Vital Signs: Last Vital Signs Temp 97.7 F 10/02/21 11:06 Pulse 88 10/02/21 11:06 Resp 15 10/02/21 11:06 BP 146/78 H 10/02/21 11:06 Pulse Ox 99 10/02/21 11:06 O2 Del Method 10/02/21 11:06 O2 Flow Rate 4 10/02/21 10:07 BMI result Body Mass Index 25.7 General: AO X 3, no acute distress Resp: CTA bilateral, no accessory muscles used CVS: S1,S2,RRR GI: soft, non tender, non distended Neuro: motor grossly intact, alert Psych: appropriate affect, appropriate insight Objective Data Active Medications Acetaminophen (Acetaminophen 325 Mg Tablet) 650 mg PO Q6H PRN PRN Reason: Pain, Mild (Pain Scale 1-3) Albuterol Sulfate (Albuterol Sulfate 90 Mcg 8 Gm Inhaler) 2 puff INHALE Q4H PRN PRN Reason: Shortness Of Breath Or Wheezing Albuterol Sulfate (Albuterol Sulfate (0.083%) 2.5 Mg/3 Ml Vial.Neb) 2.5 mg INHALE ONCE PRN PRN Reason: Wheezing Amlodipine Besylate (Amlodipine Besylate 2.5 Mg Tablet) 2.5 mg PO DAILY [facility]; Protocol Last Admin: 10/02/21 11:38 Dose: 2.5 mg Documented By: SAMMI Ascorbic Acid (Ascorbic Acid 500 Mg Tablet) 500 mg PO DAILY [facility] Last Admin: 10/02/21 11:38 Dose: 500 mg Documented By: SAMMI Aspirin (Aspirin Enteric Coated 81 Mg Tablet.) 81 mg PO DAILY [facility] Last Admin: 10/02/21 11:38 Dose: 81 mg Documented By: SAMMI Calcium Carbonate (Calcium Carbonate 500 Mg Tablet) 1,500 mg PO DAILY [facility] Last Admin: 10/02/21 11:37 Dose: 1,500 mg Documented By: SAMMI Clopidogrel Bisulfate (Clopidogrel Bisulfate 75 Mg Tablet) 75 mg PO DAILY [facility] Last Admin: 10/02/21 11:38 Dose: 75 mg Documented By: SAMMI Dextrose (Dextrose 50 % 25 Gm/50 Ml Syringe) 25 gm IVPUSH Q15M PRN; Protocol PRN Reason: per Hypoglycemia Standing Ord. Docusate Sodium (Docusate Sodium 100 Mg Capsule) 100 mg PO DAILY PRN PRN Reason: Constipation Fentanyl (Fentanyl Citrate/Pf 100 Mcg/2 Ml Vial) 25 mcg IVPUSH Q5M PRN; Protocol PRN Reason: Pain, Moderate (Pain Scale 4-6 Glucose (Glucose Gel 15 Gm Gel..Gram.) 15 gm PO Q15M PRN; Protocol PRN Reason: per Hypoglycemia Standing Ord. Heparin Sodium (Porcine) (Heparin Sodium,Porcine 5,000 Unit/Ml Vial) 5,000 unit SUBCUT 0700,1900 [facility] Last Admin: 10/02/21 06:07 Dose: Not Given Documented By: VANDANA Non-Admin Reason: Off Unit: Surgery Piperacillin Sod/Tazobactam (Sod 3.375 gm/ Sodium Chloride) 50 mls @ 100 mls/hr IV Q6H [facility] Last Admin: 10/02/21 11:37 Dose: 100 mls/hr Documented By: SAMMI Daptomycin 500 mg/ Sodium (Chloride) 60 mls @ 120 mls/hr IV Q24H [facility] Last Infusion: 10/01/21 22:13 Dose: 0 mls/hr Documented By: VANDANA Lactated Ringer's (Lr) 1,000 mls @ 50 mls/hr IVCONT .Q20H [facility] Last Infusion: 10/02/21 10:35 Dose: 0 mls/hr Documented By: RISA Insulin Glargine (Insulin Glargine,Hum.Rec.Anlog 100 Unit/Ml 10 Ml Vial) 12 unit SUBCUT BEDTIME [facility] Last Admin: 10/01/21 21:21 Dose: 12 unit Documented By: VANDANA Insulin Human Lispro (Insulin Lispro 100 Unit/Ml 3 Ml Vial) 0.1 - 10 unit SUBCUT QIDACHS [facility]; Protocol Last Admin: 10/02/21 12:01 Dose: Not Given Documented By: SAMMI Non-Admin Reason: No Insulin Coverage Ondansetron HCl (Ondansetron Hcl 4 Mg/2 Ml Vial) 4 mg IVPUSH Q8H PRN PRN Reason: Nausea and Vomiting Ondansetron HCl (Ondansetron Hcl 4 Mg/2 Ml Vial) 4 mg IVPUSH ONCE PRN PRN Reason: Nausea and Vomiting Oxycodone HCl (Oxycodone Hcl Immed Release 5 Mg Tablet) 5 mg PO ONCE PRN PRN Reason: Pain, Severe (Pain Scale 7-10) Pharmacy Consult (Consult Rx Vancomycin Dosing) 1 each MISCELLANE DAILY PRN PRN Reason: Consult order Sodium Chloride (0.9 % Sodium Chloride Flush 3 Ml Syringe) 3 ml IVFLUSH QSHIFT [facility] Last Admin: 10/02/21 08:07 Dose: Not Given Documented By: SAMMI Non-Admin Reason: IV Running Labs CBC & Chem 7: 10/02/21 08:42 10/02/21 08:42 Labs: Laboratory Results - last 24 hr 10/01/21 10/01/21 10/02/21 16:36 20:50 07:35 MCV MCH MCHC RDW Plt Count MPV Absolute Nucleated RBC Nucleated RBC % (auto) Anion Gap Estim Creat Clear Calc Estimated GFR POC Glucose 187 H 131 H 86 Fasting Glucose Calcium 10/02/21 10/02/21 10/02/21 08:42 08:42 11:15 MCV 89.7 MCH 29.2 MCHC 32.6 RDW 13.6 Plt Count 237 MPV 9.1 L Absolute Nucleated RBC 0.000 Nucleated RBC % (auto) 0.0 Anion Gap 14 Estim Creat Clear Calc 48.4 Estimated GFR > 60 POC Glucose 72 Fasting Glucose 86 D Calcium 9.3 Assessment and Plan (1) PAD (peripheral artery disease): Status: Acute (2) Osteomyelitis: Status: Acute Plan 75-year-old male with past medical history of diabetes as well as PVD who presents to the hospital with necrotic right toe found to have osteomyelitis Osteomyelitis vanco/zosyn s/p angio - see report Right 4th and 5th toe ray amputation 10/02/21 ENRIQUE. Resolved likely prerenal in the setting of dehydration/infection follow BMP Diabetes 2 SS, ADA diet History of PVD continue Plavix, asa no evidence of acute stenosis on arterial Dopplers. htn amlodipnie DVT prophylaxis:? Heparin subQ reason for continued hospitalization: monitoring post op Quality Stroke Does the patient have a stroke diagnosis?: No VTE Prior VTE?: No VTE Risk Level:: Medical - moderate - high VTE Device Contraindication: Treatment Not Indicated VTE Drug Contraindication: N/A - Med Ordered
[2021-10-02] MEDS: 0.9 % Sodium Chloride Flush 3 ML SYRINGE IVFLUSH (16:17)
[2021-10-02 16:23] LABS: Glucose, Whole Blood 161 mg/dL (60-115)
[2021-10-02] MEDS: Insulin Lispro 100 UNIT/ML 3 ML VIAL SUBCUT ×2 (16:57→21:29)
[2021-10-02 20:18] LABS: Glucose, Whole Blood 190 mg/dL (60-115)
[2021-10-02] MEDS: DAPTOmycin 500 MG in 0.9 % Sodium Chloride 50 ML 120 MG IV (21:24)
[2021-10-02] MEDS: Insulin Glargine,Hum.rec.anlog 100 UNIT/ML 10 ML VIAL 12 UNIT SUBCUT (21:29)
[2021-10-03] VITALS: BP 142/67; PULSE 87; RESP 18; TEMP 36.2; O2SAT 100
[2021-10-03 04:00] VITALS: BP 131/70; PULSE 90; RESP 18; TEMP 36.2; O2SAT 100
[2021-10-03] MEDS: Piperacillin Sodium/Tazobactam 3.375 GM in 0.9 % Sodium Chloride 50 ML IV (05:52)
[2021-10-03 06:00] LABS: Hematocrit 32.1 % (42.0-52.0); Hemoglobin 10.4 g/dl (14.0-18.0); Mean Corpuscular HGB Conc 32.4 g/dl (31.0-36.0); Mean Corpuscular Hemoglobin 28.5 pg (27.0-33.0); Mean Corpuscular Volume 87.9 fL (80.0-98.0); Mean Platelet Volume 9.1 fL (9.4-12.4); Platelet Count 205 X10*3/uL (160-400); Red Blood Count 3.65 X10*6/uL (4.60-5.80); Red Cell Distribution Width 13.6 % (11.0-16.0); White Blood Count 6.2 X10*3/uL (4.8-10.8)
[2021-10-03 06:16] LABS: Anion Gap 12 (12-20); Blood Urea Nitrogen 14 mg/dL (9-16); Carbon Dioxide 29 mmol/L (22-29); Chloride 103 mmol/L (96-108); Creatinine Clr Calc Pharmacy 49.9; Estimated Glomerular Filt Rate > 60; Glucose Fasting 115 mg/dL (60-99); Potassium 3.6 mmol/L (3.3-5.1); Sodium 140 mmol/L (135-145)
[2021-10-03 07:29] LABS: Glucose, Whole Blood 99 mg/dL (60-115)
[2021-10-03 07:33] VITALS: BP 180/78; PULSE 91; RESP 18; TEMP 36.7; O2SAT 100
[2021-10-03] MEDS: amLODIPine Besylate 2.5 MG TABLET PO (07:49)
[2021-10-03] MEDS: Aspirin Enteric Coated 81 MG TABLET.DR PO (07:49)
[2021-10-03] MEDS: Clopidogrel Bisulfate 75 MG TABLET PO (07:50)
[2021-10-03] MEDS: Ascorbic Acid 500 MG TABLET PO (07:50)
[2021-10-03 08:12] VITALS: O2SAT 100
--- NOTE | 2021-10-03 08:38 | HO.POSTANES ---
Post Anesthesia Evaluation Post Anesthesia Evaluation Vital Signs: Vital Signs Temp Pulse Resp BP Pulse Ox O2 Del Method O2 Flow Rate 10/03/21 08:12 100 Room Air 10/03/21 07:33 98.1 F 91 18 180/78 H 100 Room Air 10/03/21 04:00 97.2 F 90 18 131/70 100 Nasal Cannula 2 10/03/21 00:00 97.1 F 87 18 142/67 H 100 Nasal Cannula Anesthesia: General LMA Mental Status: Awake Pain Control: Satisfactory Nausea/Vomiting: None Hydration: Adequate Anesthesia-Related Issues: No Anes. Related Issues
[2021-10-03 10:52] VITALS: BP 162/62; PULSE 92; RESP 18; TEMP 36.6; O2SAT 95
--- NOTE | 2021-10-03 10:58 | HO.VASCPN ---
Subjective Subjective Date of Service: 10/03/21 Patient reports: no new complaints and feels better Interval history: Very pleasant 76-year-old gentleman presents for follow-up status post toe amputation. Of note today his his 77th birthday. He appears to be in relatively good spirits. Denies any significant pain. He is now for dressing change. Physical Exam Vital Signs: Vital Signs: Last Vital Signs Temp 98.1 F 10/03/21 07:33 Pulse 91 10/03/21 07:33 Resp 18 10/03/21 07:33 BP 180/78 H 10/03/21 07:33 Pulse Ox 100 10/03/21 08:12 O2 Del Method 10/03/21 08:12 O2 Flow Rate 2 10/03/21 04:00 BMI result Body Mass Index 25.7 Const: General: cooperative, healthy appearing and no acute distress Orientation/consciousness: oriented to person, oriented to place and oriented to time HEENT: Head: Yes normal to inspection Neck: Carotids: no bruits Chest: Chest palpation & inspection: normal inspection of the chest Resp: Effort & Inspection: normal respiratory effort and able to speak in complete sentences Auscultation: clear to auscultation bilaterally Cardio: Rate: regular rate Heart sounds: S1 normal heart sound present and S2 normal heart sound present GI: Inspection: Yes normal to inspection Skin: General skin exam: no rashes or lesions noted Wounds: amputation site ( Right foot appears to be healing well - dressing changed) Neuro: General: oriented to person, oriented to place, oriented to time and CN's II-XI intact bilaterally Extrem: General: Yes normal to inspection, Yes full ROM and Yes no clubbing, cyanosis or edema Psych: Appearance: grossly normal and well kempt Speech and movement: Normal speech and movement present Affect: normal affect Progress Note: A&P Assessment and plan (1) PAD (peripheral artery disease): Status: Acute Assessment and Plan: in short patient appears to be doing well with right 4th and 5th toe amputation. Would recommend continued local wound care. I do not believe he will unfortunately ever ambulate as he appears to have that leg externally rotated and has not been functional in addition he has this left BKA. He is stable from my perspective for discharge. I do not believe he requires additional antibiotics. He can follow up with me in approximately 2 weeks time for suture and staple removal. Thank you for allowing us to assist in his care. Time Spent With Patient Time: Total time spent is greater than 50% in coordination of care (as documented) at patient's floor/unit and/or counseling patient: Procedures Date of Service Date of Service: 10/03/21 Quality Stroke Does the patient have a stroke diagnosis?: No VTE Prior VTE?: No VTE Risk Level:: Medical - moderate - high VTE Device Contraindication: Treatment Not Indicated VTE Drug Contraindication: N/A - Med Ordered
--- NOTE | 2021-10-03 11:24 | PM.DS ---
DS: Providers Provider Date of Service: 10/03/21 Date of admission: 09/25/21 23:50 Primary care physician: Maxime Fernandez MD Consults: 09/25/21 23:52 Consult to General Surgery Routine Consulting Provider: Mau Cohen Reason for consultation: Osteomyelitis Has provider been notified: No Consult to Infectious Diseases Routine Consulting Provider: Nelida Ibarra Reason for consultation: Osteo Has provider been notified: No 09/26/21 10:02 Consult to Vascular Surgery Routine Consulting Provider: Bird Anderson Reason for consultation: pad/osteo left foot -? 4 th toe necrosis Has provider been notified: No DS: Diagnosis Discharge Diagnosis (1) PAD (peripheral artery disease): Status: Acute DS: Summary Hospital Course Hospital Course: from initial hpi: Chief Complaint: foot wound In Danish-speaking, history is obtained of with the help of language interpreter This is a 75-year-old Danish-speaking only male with past medical history of asthma, BPH, HLD, HTN, PVD, with her dependent, history of CVA, diabetes, among others who presents to the hospital, due to necrotic toe for several months.? Patient is alert and oriented to self and place.? According to his son he has been refusing care, he has noticed a necrotic toe on the right foot what has refused to see a physician for it and finally his son for some to come to the ED today.? Patient initially refused care, refused vitals as well as blood draws but once ED physician spoke to the son he reports that his father has now been deemed incompetent to make medical conditions and as his healthcare proxy he wants patient to receive full care against his will.? At this time patient has become more agreeable and allowed for blood draws and vitals to be done. Patient is a poor historian at baseline and I am unable to receive much history on the nature of his necrotic right 4th toe.? He otherwise denies any chest pain, no shortness of breath, no abdominal pain nausea or vomiting, no diarrhea constipation, no urinary symptoms and no lower extremity edema. Arrival to the ED patient noted to be hemodynamically stable with no significant abnormal vitals Labs are significant for WBC count of 5.6, hemoglobin of 11.3, BUN of 29, creatinine of 1.28 with a baseline of 0.9.? Labs otherwise unremarkable Foot x-ray showed acute osteomyelitis with bone destruction of the 4th distal phalanx and distal aspect of the 3rd proximal phalanx.? Suggestion of small bubbles of soft tissue gas along the medial aspect of the 3rd toe, Patient will be admitted for further management hospital course: patient was admitted for right 4th and 5th toe osteomyelitis due to diabetes and peripheral vascular disease. He was given broad-spectrum antibiotics with vancomycin Zosyn, later changes in to daptomycin. He underwent angiogram with no intervention, there was poor runoff with no bypass options. He underwent ray amputation of 4th and 5th right toes on 10/02 with clean margins. On discharge will not require antibiotics. Will continue aspirin statin. Patient also had some acute kidney injury which was likely prerenal and resolved with hydration. For his diabetes he was continue insulin. For his hypertension amlodipine 5 mg was added. Patient will be discharged to senior care facility. Time Spent with Patient Time attestation: Total time spent providing and/or coordinating discharge services: Discharge coordination time: Greater than 30 minutes Quality: Safe Use of Opioids Does Pt have an Active Cancer Diagnosis on the Problem List?: No Quality: Stroke Does the patient have a stroke diagnosis?: No Physical Exam Vital Signs: Vital Signs: Last Vital Signs Temp 97.8 F 10/03/21 10:52 Pulse 92 10/03/21 10:52 Resp 18 10/03/21 10:52 BP 162/62 H 10/03/21 10:52 Pulse Ox 95 10/03/21 10:52 O2 Del Method 10/03/21 10:52 O2 Flow Rate 2 10/03/21 04:00 BMI result Body Mass Index 25.7 General: AO X 3, no acute distress Resp: CTA bilateral, no accessory muscles used CVS: S1,S2,RRR GI: soft, non tender, non distended Neuro: motor grossly intact, alert Psych: appropriate affect, appropriate insight DS: Data Data Completed and Pending Completed studies during hospitalization [Text1]: Procedures Detachment at Left Lower Leg, High, Open Approach (06/04/20) Dilation of Left Peroneal Artery using Drug-Coated Balloon, Percutaneous Approach (05/02/20) Dilation of Left Popliteal Artery using Drug-Coated Balloon, Percutaneous Approach (05/02/20) Excision of Left Foot Subcutaneous Tissue and Fascia, Open Approach (05/02/20) Excision of Right Foot Subcutaneous Tissue and Fascia, Open Approach (08/03/20) Excision of Right Foot Tendon, Open Approach (05/02/20) Transfusion of Nonautologous Red Blood Cells into Peripheral Vein, Percutaneous Approach (06/04/20) Pending studies at discharge: Pending at discharge 10/02/21 09:16 Surgical [PTH] Routine Labs on day of discharge: Laboratory Results - last 24 hr 10/02/21 10/02/21 10/02/21 11:15 16:08 20:12 WBC RBC Hgb Hct MCV MCH MCHC RDW Plt Count MPV Absolute Nucleated RBC Nucleated RBC % (auto) Sodium Potassium Chloride Carbon Dioxide Anion Gap BUN Creatinine Estim Creat Clear Calc Estimated GFR POC Glucose 72 161 H 190 H Fasting Glucose Calcium 10/03/21 10/03/21 10/03/21 05:44 05:44 07:24 WBC 6.2 RBC 3.65 L Hgb 10.4 L Hct 32.1 L MCV 87.9 MCH 28.5 MCHC 32.4 RDW 13.6 Plt Count 205 MPV 9.1 L Absolute Nucleated RBC 0.000 Nucleated RBC % (auto) 0.0 Sodium 140 Potassium 3.6 Chloride 103 Carbon Dioxide 29 Anion Gap 12 BUN 14 Creatinine 1.02 Estim Creat Clear Calc 49.9 Estimated GFR > 60 POC Glucose 99 Fasting Glucose 115 H Calcium 9.0 Discharge Plan Discharge Patient Disposition: er [facility] Discharge Diagnosis: OM Referrals: Name,MD Maxime [Primary Care Provider] - 1 Week Discharge Medications: New amlodipine 2.5 mg Tablet 5 mg PO DAILY Qty: 0 0RF Protocol: Hold for SBP< HOLD for SBP < : 90 aspirin 81 mg Tablet,Delayed Release (Dr/Ec) 81 mg PO DAILY Qty: 0 0RF calcium carbonate [Oyster Shell Calcium 500] 500 mg calcium (1,250 mg) Tablet 1,500 mg PO DAILY Qty: 0 0RF Continued insulin aspart U-100 [Novolog Flexpen U-100 Insulin] 100 unit/mL (3 mL) insulin pen See Protocol subcut TIDAC Protocol: Insulin Correction Scale Less than or equal to 110 ---- Give (units): 0 111 to 150 Give (units): 0 151 to 200 Give (units): 0 201 to 250 Give (units): 2 251 to 300 Give (units): 4 301 to 350 Give (units): 6 Greater than 350 Give (units): 8 Call MD if Blood Glucose > : 400 insulin glargine [Lantus Solostar U-100 Insulin] 100 unit/mL (3 mL) insulin pen 12 unit subcut BEDTIME Discontinued levofloxacin 500 mg tablet 1 tab PO DAILY acetaminophen 325 mg capsule 650 mg PO QID PRN (Reason: Pain) (DME) pen needle, diabetic 32 gauge x 5/32 needle See Rx Instructions .ROUTE .MEDSUPPLY Qty: 50 Rx Instructions: As directed Discharge Orders: Discharge Order (Routine); Ordered 10/03/21 Ordered By: Edis Lin Diet: Advance to usual diet Activity on Discharge: As tolerated Stand Alone Forms: Patient Portal Discharge page Activity Restrictions/Additional Instructions: Wound care upon discharge of right foot: xeroform, 4x4 and Kerlix wrap to be changed daily. Please call Dr. Anderson at [phone] for 2 week follow up for suture and staple removal Care Plan Goals: recovery Health Concerns: om Plan of Treatment: wound care Assessment: see above
[2021-10-03 11:25] LABS: Glucose, Whole Blood 133 mg/dL (60-115)
--- NOTE | 2021-10-03 13:02 | MHC.CM.PN ---
PT WILL DC BACK TO [facility] TODAY VIA [facility] NEW COVID TEST RESULTS PENDING PTS SON/HCP AMENA [phone] INFORMED VIA T/C, HE IS AGREEABLE SECOND COPY OF PTS MEDICARE RIGHTS DELIVERED, THEY WILL BE SENT TO SNF WITH PT PER DISCUSSION
[2021-10-03 13:16] LABS: COVID-19 Test Negative (Negative)
== END 2021-10-03 13:35 | disposition skilled nursing facility (03) | DRG 256 ==
LOC: HO.ED 22:43 → HO.EDOVER 23:56 → HO.S3 09-27 16:19
PROVIDERS: Internal Medicine; Nurse Practitioner Acute Care; Surgery Vascular Surgery; Admitting Provider Internal Medicine; Emergency Provider Emergency Medicine; PCP Internal Medicine Geriatric Medicine; Visit Provider Internal Medicine
PROC: B40DYZZ Plain Radiography of Aorta and Bilateral Lower Extremity Arteries using Other Contrast (ICD-10-PCS; principal; 2021-09-30 12:00)
PROC: 0Y6V0Z0 Detachment at Right 4th Toe, Complete, Open Approach (ICD-10-PCS; principal; 2021-10-02 08:40)
DX: E11.52 Type 2 diabetes mellitus with diabetic peripheral angiopathy with gangrene (principal); I70.261 Atherosclerosis of native arteries of extremities with gangrene, right leg; M86.171 Other acute osteomyelitis, right ankle and foot; L97.519 Non-pressure chronic ulcer of other part of right foot with unspecified severity; E11.69 Type 2 diabetes mellitus with other specified complication; J45.909 Unspecified asthma, uncomplicated; Z20.822 Contact with and (suspected) exposure to COVID-19; Z89.512 Acquired absence of left leg below knee; Z86.73 Personal history of transient ischemic attack (TIA), and cerebral infarction without residual deficits; Z79.4 Long term (current) use of insulin; Z79.82 Long term (current) use of aspirin; Z79.899 Other long term (current) drug therapy
CPT/HCPCS: 36247; 36415; 73630; 75630; 76937; 80048; 80076; 82565; 82947; 83605; 84520; 85025; 85027; 85610; 87040; 87635; 88305; 88311; 93926; 96361; 96365; 96366; 96372; 96375; 99152; 99285; C1769; C1887; J0878; J1200; J2060; J2543; J3010; J3370

== ENCOUNTER → 2021-10-14 13:47 | Outpatient (BNVA) | payer OTHER, SELFPAY | PROVIDERS: PCP Family Medicine; Visit Provider Surgery Vascular Surgery | DX: Z47.81 Encounter for orthopedic aftercare following surgical amputation (principal); I73.9 Peripheral vascular disease, unspecified; Z89.421 Acquired absence of other right toe(s) | CPT/HCPCS: 99212 ==

== ENCOUNTER → 2021-10-28 13:20 | Outpatient (BNVA) | payer OTHER, SELFPAY | PROVIDERS: PCP Family Medicine; Visit Provider Surgery Vascular Surgery | DX: Z47.81 Encounter for orthopedic aftercare following surgical amputation (principal); I73.9 Peripheral vascular disease, unspecified; Z89.422 Acquired absence of other left toe(s); Z89.421 Acquired absence of other right toe(s) | CPT/HCPCS: 99212 ==

== ENCOUNTER → 2021-11-18 13:47 | Outpatient (BNVA) | payer OTHER, SELFPAY | PROVIDERS: PCP Family Medicine; Visit Provider Surgery Vascular Surgery | DX: I73.9 Peripheral vascular disease, unspecified (principal); Z89.421 Acquired absence of other right toe(s) | CPT/HCPCS: 99212 ==

== ENCOUNTER → 2021-12-09 13:29 | Outpatient (BNVA) | payer OTHER, SELFPAY | PROVIDERS: PCP Family Medicine; Visit Provider Surgery Vascular Surgery | DX: Z47.81 Encounter for orthopedic aftercare following surgical amputation (principal); I73.9 Peripheral vascular disease, unspecified; Z89.421 Acquired absence of other right toe(s) | CPT/HCPCS: 99212 ==

== ENCOUNTER → 2022-01-06 13:47 | Outpatient (BNVA) | payer OTHER, SELFPAY | PROVIDERS: PCP Family Medicine; Visit Provider Surgery Vascular Surgery | DX: L97.509 Non-pressure chronic ulcer of other part of unspecified foot with unspecified severity (principal); E08.621 Diabetes mellitus due to underlying condition with foot ulcer; Z89.421 Acquired absence of other right toe(s) | CPT/HCPCS: 17250; 99212 ==

== ENCOUNTER 2022-01-12 11:32 | Emergency (ER) | payer OTHER, SELFPAY ==
--- NOTE | ~2022-01-12 | CT_ITS ---
EXAMINATION: CT ABDOMEN AND PELVIS WITHOUT CONTRAST CLINICAL INFORMATION: distended abdomen vomiting COMPARISON: CT 01/01/2020 TECHNIQUE: Multidetector volumetric imaging was performed from the lung bases through the pubic symphysis. Sagittal and coronal reformatted images were obtained on the technologist workstation. This CT examination was performed using dose optimization techniques as appropriate, variously including the following: *Automated exposure control *Adjustment of mA and/or kV according to patient size (this includes techniques or standardized protocols for targeted exams where dose is matched to indication/reason for exam; i.e. extremities or head) *Use of iterative reconstruction technique FINDINGS: The lack of intravenous contrast limits evaluation of the solid visceral organs including the liver, spleen, pancreas, and kidneys. LUNG BASES: Bibasilar atelectasis. Mild cardiomegaly. Three-vessel coronary artery calcifications are present. LIVER, GALLBLADDER, AND BILIARY TREE: Limited non-contrast evaluation is normal. No gross focal hepatic lesion. Normal liver size and contour. No gross biliary ductal dilation. The gallbladder is unremarkable with no evidence of radiopaque gallstones, gallbladder wall thickening, or obvious pericholecystic inflammatory changes. PANCREAS: Limited non-contrast evaluation is normal. No mira-pancreatic fluid. SPLEEN: Limited non-contrast evaluation is normal. ADRENAL GLANDS: Normal; no adrenal mass. KIDNEYS AND URETERS: There is bilateral hydroureteronephrosis, new/worsened since the prior study 01/01/2020. The prior study showed bilateral hydroureter, worsened, followed to the level of the urinary bladder. No discrete mass or calculus seen. GASTROINTESTINAL TRACT: Small hiatal hernia. Stomach and small bowel are nondilated. No right lower quadrant inflammatory changes to suggest appendicitis. Scattered colonic diverticulosis. No evidence of colitis or diverticulitis. Large volume stool in the rectum but no perirectal inflammatory changes to suggest stercoral colitis. ABDOMINAL WALL: Fat-containing right inguinal hernia. LYMPH NODES: No lymphadenopathy. VASCULAR: Moderate nearly circumferential calcified atherosclerotic changes of the normal caliber aorta. BLADDER: The urinary bladder is partially distended but circumferential irregular with several bladder diverticula. PELVIC VISCERA: Prostatomegaly measuring 5.6 x 4.3 x 4.9 cm. Extensive vascular calcifications of the penis. OSSEOUS STRUCTURES: Extensive multilevel degenerative changes are present. 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 Bilateral hip joint effusions are present. There is abnormal soft tissue density adjacent both ischial tuberosities suggesting ulcers. CT/CT abdomen pelvis wo IV con IMPRESSION: New/worsened bilateral hydroureteronephrosis followed to an abnormal urinary bladder with circumferential wall irregularity and diverticula. The prostate is markedly enlarged. No discrete mass or calculus seen; the hydronephrosis may be due to bladder outlet obstruction. Consider correlation with urinalysis. Large volume stool within the colon but no findings to suggest stercoral colitis. Abnormal soft tissue density extending from both ischial tuberosities to the skin surface suggesting soft tissue ulcers. Recommend correlation with physical exam.
--- NOTE | 2022-01-12 11:36 | ECG_ITS ---
Test Reason : gi bleed Blood Pressure : / mmHG Vent. Rate : 097 BPM Atrial Rate : 097 BPM P-R Int : 144 ms QRS Dur : 080 ms QT Int : 334 ms P-R-T Axes : 000 195 141 degrees QTc Int : 424 ms Suspect limb lead reversal, interpretation assumes no reversal Normal sinus rhythm Abnormal ECG When compared with ECG of 03-AUG-2020 09:37, advise repeat study for limb lead reversal Referred By: Mckenna Degroot Electronically Signed By:JENN MENESES MD
[2022-01-12 11:40] VITALS: BP 166/83; PULSE 102; RESP 220; TEMP 37.1; O2SAT 96; BMI 28.3
--- NOTE | 2022-01-12 11:46 | ED_ITS ---
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 He notes his abdomen has become more painful and distended. He states this has never happened before. MD complaint: coffee ground emesis Onset (ago): hour(s) (several) Pain Consistency: constant Severity: moderate Relieving factors: none Exacerbating factors: eating Context: other (states started after injection) Associated symptoms: abdominal pain, nausea and vomiting Treatments Prior to Arrival: none Related Data Home Medications Medication Instructions Recorded Confirmed insulin aspart U-100 100 unit/mL See Protocol subcut TIDAC 09/26/21 09/26/21 (3 mL) subcutaneous pen (Novolog Flexpen U-100 Insulin aspart) insulin glargine 100 unit/mL (3 12 unit subcut BEDTIME 09/26/21 09/26/21 mL) subcutaneous pen (Lantus Solostar U-100 Insulin) levofloxacin 500 mg tablet 500 mg PO DAILY 10/14/21 Previous Rx's Medication Instructions Recorded amlodipine 2.5 mg tablet 5 mg PO DAILY #0 tabs 10/03/21 aspirin 81 mg tablet,delayed 81 mg PO DAILY #0 tabs 10/03/21 release calcium carbonate 500 mg calcium 1,500 mg PO DAILY #0 tabs 10/03/21 (1,250 mg) tablet (Oyster Shell Calcium 500) Allergies Allergy/AdvReac Type Severity Reaction Status Date / Time No Known Allergies Allergy Verified 01/06/22 14:46 [No Known Allergies*] Review of Systems Review of Systems: Constitutional : No Weight loss, No Fever, No Chills ENT/Mouth : No sore throat, No Rhinorrhea Eyes: No Swelling, No Redness Cardiovascular : No Chest Pain, No SOB, NoEdema Respiratory : No Cough, No Sputum, No Wheezing Gastrointestinal : Positive Nausea, Positive Vomiting, no Diarrhea, positive abdominal Pain, No Hematochezia, No Melena, pos coffee ground emesis Genitourinary : No Dysuria, No Urinary Frequency, No Hematuria, No Urgency Musculoskeletal : No joint pain, No Myalgias, No Joint Swelling Skin : No Skin Lesions, No rash Neuro : No Weakness, No Numbness, No Dizziness, No Headache Psych : No Anxiety/Panic, No Depression Heme/Lymph: No Bruising, No Lymphadenopathy Endocrine : No Polyuria, No Polydipsia All other systems reviewed and are negative. [facility] Past Medical History Medical History Anemia Arthritis Asthma Atherosclerosis of [place] arteries of right leg with ulceration of heel and midfoot BPH w urinary obs/LUTS Candidiasis of penis Cholelithiasis Decubitus ulcer of right foot Diabetes mellitus, type 2 Diverticulosis Gaytan catheter in place Hiatal hernia Hydronephrosis Hyperlipidemia Hypertension PVD (peripheral vascular disease) Sepsis Severe sepsis Wheelchair dependence Surgical History H/O hernia repair Status post below-knee amputation of left lower extremity Social History Social History Household Members: Other 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 Housing: Intermediate Do you presently have visiting nurse or other home services: No Alcohol intake: never Patient Tobacco Use Status: Never used Tobacco Second Hand Smoke Exposure: No Advance Directives: Yes Advance Directives on File: Yes Advance Directives Date on File: 09/25/21 service: No Current occupational status: retired Physical Exam Vital Signs: Vital Signs: Last Vital Signs Temp 98.5 F 01/12/22 15:27 Pulse 106 H 01/12/22 15:27 Resp 16 01/12/22 15:27 BP 164/86 H 01/12/22 15:27 Pulse Ox 96 01/12/22 15:27 O2 Del Method 01/12/22 15:27 BMI result Body Mass Index 28.3 Appearance: Alert. Oriented X3. No acute distress. talking on phone Eyes: Pupils equal, round and reactive to light. ENT: Pharynx normal. Neck: Normal inspection. Neck supple. CVS: Normal heart rate and rhythm. Pulses normal. Respiratory: No respiratory distress. Breath sounds normal. Abdomen: Soft and mild upper abdominal ttp no rebound there is mild distention and decreased BS as well Skin: Skin warm and dry. Normal skin color. Normal skin turgor. Extremities: No lower extremity edema. L BKA, R foot wrapped distal toes no signs of infection Neuro: Oriented X 3. No motor deficit. No sensory deficit. Course Course Course Narrative: refusing catheter, no vomiting while here in ED, will send off guiac repeat CBC for 4pm no obstruction on CT scan but fecal impaction - refusing rectal exam CT scan bladder outlet obstruction likely BPH but he will not allow catheter - voided here, UA negative for infection signed out to Dr. Sanchez pending repeat CBC - I did not see coffee ground emesis has not vomited here symptoms started at 11 would expect some drop in H/H if he is having GIB. has not had any BMs here. MDM - GI Bleed MDM Narrative Medical decision making narrative: 76 yo male with hx of DM, anemia, ENRIQUE, PAD, CVA, UTI, dysphagia, hiatal hernia, on oral aspirin only no blood thinners here with abdominal distention, n/v and coffee ground emesis - at this time labs, EKG, type and screen, IVF , zofran and IV protonix. CT scan for obstruction. Dispo per results and findings. Lab Data Result diagrams: 01/12/22 12:20 01/12/22 12:20 Labs: Lab Results 01/12/22 01/12/22 01/12/22 Range/Units 12:20 12:20 12:20 WBC 8.9 (4.8-10.8) X10*3/uL RBC 4.20 L (4.60-5.80) X10*6/uL Hgb 12.0 L (14.0-18.0) g/dl Hct 37.3 L (42.0-52.0) % MCV 88.8 (80.0-98.0) fL MCH 28.6 (27.0-33.0) pg MCHC 32.2 (31.0-36.0) g/dl RDW 14.4 (11.0-16.0) % Plt Count 222 (160-400) X10*3/uL MPV 9.2 L (9.4-12.4) fL Immature Gran % (Auto) 0.3 (0.0-0.4) % Neut % (Auto) 86.1 H (45-73) % Lymph % (Auto) 8.0 L (20-40) % [place] % (Auto) 5.3 (2-11) % Eos % (Auto) 0.1 (0-4) % Baso % (Auto) 0.2 (0-2) % Lymph # (Auto) 0.7 L (1.2-4.9) X10*3/uL [place] # (Auto) 0.5 (0.1-1.2) X10*3/uL Eos # (Auto) 0.0 (0.0-0.4) X10*3/uL Baso # (Auto) 0.0 (0.0-0.2) X10*3/uL Abs Immat Gran (auto) 0.03 (0.00-0.03) X10*3/uL Absolute Neuts (auto) 7.6 (2.0-8.3) x10*3/uL Absolute Nucleated RBC 0.000 (0.0-0.012) X10*3/uL Nucleated RBC % (auto) 0.0 (0.0-0.2) /100WBC PT (10.0-13.1) SEC INR (0.9-1.1) APTT (26.0-36.4) SEC Sodium 140 (135-145) mmol/L Potassium 4.1 (3.3-5.1) mmol/L Chloride 101 (96-108) mmol/L Carbon Dioxide 28 (22-29) mmol/L Anion Gap 15 (12-20) BUN 26 H D (9-16) mg/dL Creatinine 1.01 (0.5-1.4) mg/dL Estim Creat Clear Calc 55.8 Estimated GFR > 60 POC Glucose (60-115) mg/dL Random Glucose 188 H (60-115) mg/dL Lactic Acid (0.5-2.0) mmol/L Calcium 8.8 (8.4-10.2) mg/dL Magnesium 1.8 (1.6-2.6) mg/dL Total Bilirubin 0.4 (0.0-1.0) mg/dL Direct Bilirubin 0.2 (0.0-0.5) mg/dL AST 11 (5-37) U/L ALT 9 (0-40) U/L Alkaline Phosphatase 109 (39-117) U/L Troponin I High Sens (<3.5-35.0) ng/L Total Protein 7.1 (6.5-8.0) g/dL Albumin 3.7 (3.5-5.0) g/dL Lipase 19 (8-78) U/L Urine Color Urine Appearance Urine pH (5.0-9.0) Ur Specific [place] (1.005-1.025) Urine Protein (Neg-Trace) mg/dL Urine Glucose (UA) (Negative) mg/dL Urine Ketones (Negative) mg/dL Urine Blood (Negative) Urine Nitrite (Negative) Ur Leukocyte Esterase (Negative) Urine RBC (0-2) /HPF Urine WBC (0-5) /HPF Ur Squamous Epith Cells (0-2) /HPF Urine Bacteria (None Seen) Hyaline Casts (0-2) /LPF COVID-19 (OCTAVIO) Negative (Negative) COVID-19 Clin Com See Note Blood Type Antibody Screen 01/12/22 01/12/22 01/12/22 Range/Units 12:20 12:20 12:20 WBC (4.8-10.8) X10*3/uL RBC (4.60-5.80) X10*6/uL Hgb (14.0-18.0) g/dl Hct (42.0-52.0) % MCV (80.0-98.0) fL MCH (27.0-33.0) pg MCHC (31.0-36.0) g/dl RDW (11.0-16.0) % Plt Count (160-400) X10*3/uL MPV (9.4-12.4) fL Immature Gran % (Auto) (0.0-0.4) % Neut % (Auto) (45-73) % Lymph % (Auto) (20-40) % [place] % (Auto) (2-11) % Eos % (Auto) (0-4) % Baso % (Auto) (0-2) % Lymph # (Auto) (1.2-4.9) X10*3/uL [place] # (Auto) (0.1-1.2) X10*3/uL Eos # (Auto) (0.0-0.4) X10*3/uL Baso # (Auto) (0.0-0.2) X10*3/uL Abs Immat Gran (auto) (0.00-0.03) X10*3/uL Absolute Neuts (auto) (2.0-8.3) x10*3/uL Absolute Nucleated RBC (0.0-0.012) X10*3/uL Nucleated RBC % (auto) (0.0-0.2) /100WBC PT 12.2 (10.0-13.1) SEC INR 1.1 (0.9-1.1) APTT 33.6 (26.0-36.4) SEC Sodium (135-145) mmol/L Potassium (3.3-5.1) mmol/L Chloride (96-108) mmol/L Carbon Dioxide (22-29) mmol/L Anion Gap (12-20) BUN (9-16) mg/dL Creatinine (0.5-1.4) mg/dL Estim Creat Clear Calc Estimated GFR POC Glucose (60-115) mg/dL Random Glucose (60-115) mg/dL Lactic Acid 1.5 (0.5-2.0) mmol/L Calcium (8.4-10.2) mg/dL Magnesium (1.6-2.6) mg/dL Total Bilirubin (0.0-1.0) mg/dL Direct Bilirubin (0.0-0.5) mg/dL AST (5-37) U/L ALT (0-40) U/L Alkaline Phosphatase (39-117) U/L Troponin I High Sens 9.2 (<3.5-35.0) ng/L Total Protein (6.5-8.0) g/dL Albumin (3.5-5.0) g/dL Lipase (8-78) U/L Urine Color Urine Appearance Urine pH (5.0-9.0) Ur Specific Bath (1.005-1.025) Urine Protein (Neg-Trace) mg/dL Urine Glucose (UA) (Negative) mg/dL Urine Ketones (Negative) mg/dL Urine Blood (Negative) Urine Nitrite (Negative) Ur Leukocyte Esterase (Negative) Urine RBC (0-2) /HPF Urine WBC (0-5) /HPF Ur Squamous Epith Cells (0-2) /HPF Urine Bacteria (None Seen) Hyaline Casts (0-2) /LPF COVID-19 (OCT[facility]IO) (Negative) COVID-19 Clin Com Blood Type Antibody Screen 01/12/22 01/12/22 01/12/22 Range/Units 13:03 14:02 15:24 WBC (4.8-10.8) X10*3/uL RBC (4.60-5.80) X10*6/uL Hgb (14.0-18.0) g/dl Hct (42.0-52.0) % MCV (80.0-98.0) fL MCH (27.0-33.0) pg MCHC (31.0-36.0) g/dl RDW (11.0-16.0) % Plt Count (160-400) X10*3/uL MPV (9.4-12.4) fL Immature Gran % (Auto) (0.0-0.4) % Neut % (Auto) (45-73) % Lymph % (Auto) (20-40) % [place] % (Auto) (2-11) % Eos % (Auto) (0-4) % Baso % (Auto) (0-2) % Lymph # (Auto) (1.2-4.9) X10*3/uL [place] # (Auto) (0.1-1.2) X10*3/uL Eos # (Auto) (0.0-0.4) X10*3/uL Baso # (Auto) (0.0-0.2) X10*3/uL Abs Immat Gran (auto) (0.00-0.03) X10*3/uL Absolute Neuts (auto) (2.0-8.3) x10*3/uL Absolute Nucleated RBC (0.0-0.012) X10*3/uL Nucleated RBC % (auto) (0.0-0.2) /100WBC PT (10.0-13.1) SEC INR (0.9-1.1) APTT (26.0-36.4) SEC Sodium (135-145) mmol/L Potassium (3.3-5.1) mmol/L Chloride (96-108) mmol/L Carbon Dioxide (22-29) mmol/L Anion Gap (12-20) BUN (9-16) mg/dL Creatinine (0.5-1.4) mg/dL Estim Creat Clear Calc Estimated GFR POC Glucose 154 H (60-115) mg/dL Random Glucose (60-115) mg/dL Lactic Acid (0.5-2.0) mmol/L Calcium (8.4-10.2) mg/dL Magnesium (1.6-2.6) mg/dL Total Bilirubin (0.0-1.0) mg/dL Direct Bilirubin (0.0-0.5) mg/dL AST (5-37) U/L ALT (0-40) U/L Alkaline Phosphatase (39-117) U/L Troponin I High Sens (<3.5-35.0) ng/L Total Protein (6.5-8.0) g/dL Albumin (3.5-5.0) g/dL Lipase (8-78) U/L Urine Color Yellow Urine Appearance Clear Urine pH 6.5 (5.0-9.0) Ur Specific Bath 1.015 (1.005-1.025) Urine Protein 100 (2+) H (Neg-Trace) mg/dL Urine Glucose (UA) 250 H (Negative) mg/dL Urine Ketones Trace (Negative) mg/dL Urine Blood Negative (Negative) Urine Nitrite Negative (Negative) Ur Leukocyte Esterase Negative (Negative) Urine RBC 0-2 (0-2) /HPF Urine WBC 0-5 (0-5) /HPF Ur Squamous Epith Cells 0-2 (0-2) /HPF Urine Bacteria None Seen (None Seen) Hyaline Casts 0-2 (0-2) /LPF COVID-19 (OCT[facility]IO) (Negative) COVID-19 Clin Com Blood Type O Positive Antibody Screen NEGATIVE ECG Data Attestation: I personally reviewed and interpreted this ECG as follows: ECG interpretation date: 01/12/22 ECG interpretation time: 12:05 Interpretation: Rate: 97 Rhythm: NSR [place]: left Normal P waves. Normal JOCELINE. Normal QRS complex. ST T wave : normal no JEFFREY qTC: normal prior studies: no acute ischemia The study has been interpreted contemporaneously by me. . Discharge Plan Discharge Clinical Impression: Bladder outlet obstruction Constipation Qualifiers: Constipation type: unspecified constipation type Qualified Code(s): K59.00 - Constipation, unspecified Vomiting Qualifiers: Vomiting type: unspecified Patient Disposition: Still a Patient Prescriptions: No Action insulin aspart U-100 [Novolog Flexpen U-100 Insulin] 100 unit/mL (3 mL) insulin pen See Protocol subcut TIDAC Protocol: Insulin Correction Scale Less than or equal to 110 ---- Give (units): 0 111 to 150 Give (units): 0 151 to 200 Give (units): 0 201 to 250 Give (units): 2 251 to 300 Give (units): 4 301 to 350 Give (units): 6 Greater than 350 Give (units): 8 Call MD if Blood Glucose > : 400 insulin glargine [Lantus Solostar U-100 Insulin] 100 unit/mL (3 mL) insulin pen 12 unit subcut BEDTIME amlodipine 2.5 mg Tablet 5 mg PO DAILY Qty: 0 0RF Protocol: Hold for SBP< HOLD for SBP < : 90 aspirin 81 mg Tablet,Delayed Release (Dr/Ec) 81 mg PO DAILY Qty: 0 0RF calcium carbonate [Oyster Shell Calcium 500] 500 mg calcium (1,250 mg) Tablet 1,500 mg PO DAILY Qty: 0 0RF levofloxacin 500 mg tablet 500 mg PO DAILY
[2022-01-12] MEDS: Pantoprazole Sodium 40 MG/10 ML VIAL IVPUSH (12:10)
[2022-01-12] MEDS: ondansetron HCL 4 MG/2 ML VIAL IVPUSH (12:10)
[2022-01-12] MEDS: 0.9 % Sodium Chloride 1,000 ML 999 ML IVCONT ×2 (12:10→17:29)
[2022-01-12 12:24] LABS: MANUAL DIFF FLAG NO
[2022-01-12 12:25] LABS: Basophils Percent Auto 0.2 % (0-2); Eosinophils Percent Auto 0.1 % (0-4); Hematocrit 37.3 % (42.0-52.0); Imm Gran Abs Auto 0.03 X10*3/uL (0.00-0.03); Imm Gran Pct Auto 0.3 % (0.0-0.4); Lymphocytes Absolute Auto 0.7 X10*3/uL (1.2-4.9); Mean Corpuscular HGB Conc 32.2 g/dl (31.0-36.0); Mean Corpuscular Hemoglobin 28.6 pg (27.0-33.0); Mean Corpuscular Volume 88.8 fL (80.0-98.0); Mean Platelet Volume 9.2 fL (9.4-12.4); Monocytes Absolute Auto 0.5 X10*3/uL (0.1-1.2); Monocytes Percent Auto 5.3 % (2-11); Neutrophils Absolute Auto 7.6 x10*3/uL (2.0-8.3); Neutrophils Percent Auto 86.1 % (45-73); Platelet Count 222 X10*3/uL (160-400); Red Cell Distribution Width 14.4 % (11.0-16.0); White Blood Count 8.9 X10*3/uL (4.8-10.8)
[2022-01-12 12:31] LABS: INTERNATIONAL NORM RATIO 1.1 (0.9-1.1); Prothrombin Time 12.2 SEC (10.0-13.1)
[2022-01-12 12:33] LABS: Partial Thromboplastin Time 33.6 SEC (26.0-36.4)
[2022-01-12 12:38] LABS: Lactic Acid 1.5 mmol/L (0.5-2.0)
[2022-01-12 12:44] LABS: Alanine Aminotransferase 9 U/L (0-40); Albumin Level 3.7 g/dL (3.5-5.0); Alkaline Phosphatase 109 U/L (39-117); Anion Gap 15 (12-20); Aspartate Amino Transferase 11 U/L (5-37); Bilirubin Direct 0.2 mg/dL (0.0-0.5); Bilirubin Total 0.4 mg/dL (0.0-1.0); Blood Urea Nitrogen 26 mg/dL (9-16); Calcium 8.8 mg/dL (8.4-10.2); Carbon Dioxide 28 mmol/L (22-29); Chloride 101 mmol/L (96-108); Creatinine Clr Calc Pharmacy 55.8; Estimated Glomerular Filt Rate > 60; Glucose Random 188 mg/dL (60-115); Lipase 19 U/L (8-78); Magnesium 1.8 mg/dL (1.6-2.6); Potassium 4.1 mmol/L (3.3-5.1); Sodium 140 mmol/L (135-145); Total Protein 7.1 g/dL (6.5-8.0)
[2022-01-12 12:48] LABS: Troponin-I High Sensitivity 9.2 ng/L (<3.5-35.0)
[2022-01-12 12:51] LABS: COVID-19 Test Negative (Negative); IDNOW Serial# 9DD0AD1C
--- NOTE | 2022-01-12 14:00 | PC.NURSE ---
PT A&Ox3, C/O blood in emesis, and ABD pain. ABD distended and firm, hypoactive BS. Denies chest pain, SOB, and dizziness.
[2022-01-12 14:06] LABS: Glucose, Whole Blood 154 mg/dL (60-115)
--- NOTE | 2022-01-12 15:00 | PC.NURSE ---
PT refused al cath placement. Stated he had a bad experience.
--- NOTE | 2022-01-12 15:20 | PC.NURSE ---
PT voided in urinal. Urine sample collected, incontinent care provided.
[2022-01-12 15:27] VITALS: BP 164/86; PULSE 106; RESP 16; TEMP 36.9; O2SAT 96
[2022-01-12 15:37] LABS: Appearance Urine Clear; Color Urine Yellow; Glucose Urine UA 250 mg/dL (Negative); Leukocyte Esterase Urine Negative (Negative); Nitrite Urine Negative (Negative); PH 6.5 (5.0-9.0); Specific Gravity - Urine 1.015 (1.005-1.025); UMIC TRIGGER UACC YES; Urine Blood Negative (Negative); Urine Ketones Trace mg/dL (Negative); Urine Protein 100 (2+) mg/dL (Neg-Trace)
[2022-01-12 16:03] LABS: Bacteria Urine None Seen (None Seen); Hyaline Casts Urine 0-2 /LPF (0-2); RBC Urine 0-2 /HPF (0-2); Squamous Epithelial Cell Urine 0-2 /HPF (0-2); WBC Urine 0-5 /HPF (0-5)
[2022-01-12 17:01] LABS: Hematocrit 35.7 % (42.0-52.0); Hemoglobin 11.7 g/dl (14.0-18.0); Mean Corpuscular HGB Conc 32.8 g/dl (31.0-36.0); Mean Corpuscular Hemoglobin 28.8 pg (27.0-33.0); Mean Corpuscular Volume 87.9 fL (80.0-98.0); Mean Platelet Volume 9.4 fL (9.4-12.4); Platelet Count 203 X10*3/uL (160-400); Red Blood Count 4.06 X10*6/uL (4.60-5.80); Red Cell Distribution Width 14.4 % (11.0-16.0); White Blood Count 9.1 X10*3/uL (4.8-10.8)
[2022-01-12 17:31] VITALS: BP 166/85; PULSE 108; RESP 19; TEMP 36.8; O2SAT 97
[2022-01-12 17:47] LABS: OBS Int Ctl Valid YES; OBS1 NEGATIVE (NEGATIVE)
[2022-01-12 18:05] VITALS: BP 174/84; PULSE 110; RESP 16; O2SAT 96
--- NOTE | 2022-01-12 18:35 | PC.NURSE ---
This service writer called Hakeem [phone] (former [facility]). Nurse to nurse report given to FRANCHESCA Vu. ED confidential secretary booking ambulance. Horace aware of plan.
== END 2022-01-12 20:37 | disposition home or self-care (01) ==
PROVIDERS: Emergency Medicine; Emergency Provider Emergency Medicine; PCP Internal Medicine Geriatric Medicine
DX: N32.0 Bladder-neck obstruction (principal); R11.10 Vomiting, unspecified; K59.00 Constipation, unspecified; Z20.822 Contact with and (suspected) exposure to COVID-19; I10 Essential (primary) hypertension; E11.9 Type 2 diabetes mellitus without complications; Z79.4 Long term (current) use of insulin; Z79.899 Other long term (current) drug therapy
CPT/HCPCS: 36415; 74176; 80048; 80076; 81001; 82272; 82947; 83605; 83690; 83735; 84484; 85025; 85027; 85610; 85730; 86850; 86900; 86901; 87635; 93005; 96361; 96374; 96375; 99284; J2405

== ENCOUNTER 2022-01-15 14:39 | Emergency (ER) | payer OTHER, SELFPAY ==
--- NOTE | ~2022-01-15 | XR_ITS ---
EXAMINATION: XR FOOT, RIGHT CLINICAL INFORMATION: Ulcer is, amputation wound. COMPARISON: Right foot radiographs dated 09/25/2021. TECHNIQUE: AP, lateral, and oblique views of the right foot. FINDINGS: Post surgical changes are seen in the fourth and fifth metatarsals. Irregular lucencies are seen in the distal aspect of the residual fourth metatarsal. Deformity is also seen in the distal aspect of the proximal phalanx of the third digit. The first and second digits are intact. Mild soft tissue swelling is seen. The tarsal bones are normally aligned. Mild to moderate intertarsal degenerative joint changes are seen. Moderate plantar and small retrocalcaneal spurs are seen. Severe small vessel arteriosclerosis is noted. XR/XR foot RT 2V IMPRESSION: Postsurgical changes as detailed above. Irregular lucency in the distal aspect of the residual fourth metatarsal as well as in the distal aspect of the proximal phalanx of the third digit. Osteomyelitis cannot be excluded.
[2022-01-15 15:35] VITALS: BP 157/62; BP 168/84; PULSE 102; PULSE 104; RESP 18; TEMP 36.6; O2SAT 96; BMI 25.6
--- NOTE | 2022-01-15 16:04 | ED.WOUNDLAC ---
HPI - Wound/Laceration General Chief Complaint: Wound/Laceration <Shawnee Amelia LAYLA Cervantes - Last Filed: 01/15/22 17:56> Stated Complaint: ? INF PER EMS <Shawnee Ameliajoleen Cervantes CNP - Last Filed: 01/15/22 17:56> Time Seen by Provider: 01/15/22 15:37 <Shawneesheela Cervantes CNP - Last Filed: 01/15/22 17:56> Source: patient and RN notes reviewed <Shawnee Cervantes CNP - Last Filed: 01/15/22 17:56> Mode of arrival: EMS <Shawnee Ameliajoleen Cervantes CNP - Last Filed: 01/15/22 17:56> Limitations: language barrier (Arabic-speaking map plotter utilized) <Shawneevincent Cervantes CNP - Last Filed: 01/15/22 17:56> History of Present Illness HPI narrative: Patient is a 76-year-old male wheelchair-bound presents emergency department via EMS from longterm [facility], for evaluation right foot wounds. Concern for worsening appearance of foot wounds, but report from EMS and staff noted Patient is a poor historian, he is unable to tell me much about the onset her the treatment of the wounds currently. <Shawneesheela Cervantes CNP - Last Filed: 01/15/22 17:56> Related Data Home Medications: Home Medications Medication Instructions Recorded Confirmed insulin aspart U-100 100 unit/mL See Protocol subcut TIDAC 09/26/21 09/26/21 (3 mL) subcutaneous pen (Novolog Flexpen U-100 Insulin aspart) insulin glargine 100 unit/mL (3 12 unit subcut BEDTIME 09/26/21 09/26/21 mL) subcutaneous pen (Lantus Solostar U-100 Insulin) levofloxacin 500 mg tablet 500 mg PO DAILY 10/14/21 Previous Rx's Medication Instructions Recorded amlodipine 2.5 mg tablet 5 mg PO DAILY #0 tabs 10/03/21 aspirin 81 mg tablet,delayed 81 mg PO DAILY #0 tabs 10/03/21 release calcium carbonate 500 mg calcium 1,500 mg PO DAILY #0 tabs 10/03/21 (1,250 mg) tablet (Oyster Shell Calcium 500) ondansetron HCl 4 mg tablet 4 mg PO Q6H PRN nausea and 01/12/22 vomiting #10 tabs polyethylene glycol 3350 17 17 g PO DAILY PRN constipation 01/12/22 gram/dose oral powder (Miralax) #119 grams <Shawnee Cervantes CNP - Last Filed: 01/15/22 17:56> Allergies/Adverse Reactions: Allergies Allergy/AdvReac Type Severity Reaction Status Date / Time No Known Allergies Allergy Verified 01/06/22 14:46 [No Known Allergies*] <Shawnee Cervantes CNP - Last Filed: 01/15/22 17:56> Review of Systems Review of Systems: Constitutional: No fever, chills Skin: No rash or itching. Cardiovascular: No chest pain. No palpitations Respiratory: No shortness of breath, or couch Gastrointestinal: No nausea, vomiting or diarrhea. No abdominal pain Musculoskeletal: Left BKA. Positive pain to right foot. Psychiatric: No depression or anxiety. <Shawnee Cervantes CNP - Last Filed: 01/15/22 17:56> Yes all other systems are reviewed and are negative <Shawnee Cervantes CNP - Last Filed: 01/15/22 17:56> PMFSH Past Medical History Attestation statement: The following information was validated with the patient. <Shawnee Cervantes CNP - Last Filed: 01/15/22 17:56> Source: old records reviewed <Shawnee Cervantes CNP - Last Filed: 01/15/22 17:56> Medical History: Medical History Anemia Arthritis Asthma Atherosclerosis of [place] arteries of right leg with ulceration of heel and midfoot BPH w urinary obs/LUTS Candidiasis of penis Cholelithiasis Decubitus ulcer of right foot Diabetes mellitus, type 2 Diverticulosis Gaytan catheter in place Hiatal hernia Hydronephrosis Hyperlipidemia Hypertension PVD (peripheral vascular disease) Sepsis Severe sepsis Wheelchair dependence <Shawnee Cervantes CNP - Last Filed: 01/15/22 17:56> Surgical History: Surgical History H/O hernia repair Status post below-knee amputation of left lower extremity <Shawnee Cervantes CNP - Last Filed: 01/15/22 17:56> Social History Social History: Social History Household Members: Other 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 Housing: Jail Do you presently have visiting nurse or other home services: No Alcohol intake: never Patient Tobacco Use Status: Never used Tobacco Second Hand Smoke Exposure: No Advance Directives: Yes Advance Directives on File: Yes Advance Directives Date on File: 09/25/21 service: No Current occupational status: retired <Shawnee Cervantes CNP - Last Filed: 01/15/22 17:56> Physical Exam Vital Signs: Vital Signs: Last Vital Signs Temp 97.9 F 01/15/22 15:35 Pulse 102 H 01/15/22 15:35 Resp 18 01/15/22 15:35 BP 157/62 H 01/15/22 15:35 Pulse Ox 96 01/15/22 15:35 BMI result Body Mass Index 25.6 Vital signs have been reviewed and appeared to be correct. Hypertension Tachycardia? Respiration rate normal. Temperature normal.? Oxygen saturation normal. <Shawnee Cervantes CNP - Last Filed: 01/15/22 17:56> Vital Signs: Last Vital Signs Temp 97.9 F 01/15/22 15:35 Pulse 102 H 01/15/22 15:35 Resp 18 01/15/22 15:35 BP 157/62 H 01/15/22 15:35 Pulse Ox 96 01/15/22 15:35 BMI result Body Mass Index 25.6 <FLORENTIN Anderson - Last Filed: 01/15/22 20:55> Appearance: Alert.?Oriented to person and place, disoriented to time and about. No acute distress.?Normal affect. Eyes: Pupils equal, round and reactive to light.? ENT: Pharynx normal.?? Neck: Normal inspection.? Neck supple.?? CVS: Heart sounds normal. Normal heart rate and rhythm.? Pulses normal.?? Respiratory: No respiratory distress.? Lung sounds clear to auscultation bilaterally?? Abdomen: Soft and non-tender. Normoactive bowel sounds. ? Skin: Skin warm and dry.? Normal skin color.? Extremities: Right foot eversion, presence of pressure wounds with surrounding erythema and warmth as noted in photos, amputation site of the 4th and 5th digit with bloody drainage, surrounding skin appears macerated. 1+ DP/PT pulse on the right. Neuro: Moves all extremities spontaneously. Sensation intact bilaterally. No focal neuro deficits. <Shawnee Cervantes CNP - Last Filed: 01/15/22 17:56> Course Course Course Narrative: First contact with patient at 1545: patient waited for room placement from EMS Stretcher Patient is a 76-year-old male with a past medical history of peripheral artery disease, hypertension, left BKA, osteomyelitis, anemia, diabetes with neuropathy, CVA, dysphagia, vertebral artery stenosis presenting to emergency department for evaluation of right foot ulcerations from a longterm facility concerns for worsening appearance and infection. Foot is painful, tenderness upon palpation. Based on appearance concern for surrounding cellulitis versus osteomyelitis versus sepsis versus worsening peripheral arterial disease. At this time he is afebrile, mildly tachycardic. Will obtain CBC, CMP, lactic acid, blood cultures, XR of the foot to evaluate for osteomyelitis or presence of gas. Patient was in the emergency department 3 days ago for unrelated matter, at that time did not know any leukocytosis. <Shawnee Cervantes CNP - Last Filed: 01/15/22 17:56> Reevaluation(s) Reevaluation #1: Nursing staff had presented to patient's bedside to place IV as well obtain blood work. Patient became very agitated refusing to have any blood work obtained at this time. I had an extensive conversation with map plotter, regarding why blood work needs to be repeated despite him having had blood work obtained 3 days ago, discussed the possibility of osteomyelitis in the complications associated with that including bacteremia, resultant requirement for amputation of the right lower extremity, as well as potential for and patient states he understands this however he refuses to have any blood work done today. He is requesting to be transferred back to longterm facility. He continues to express growing frustration that he is ?not being cared for at the facility? as his wound has not been looked at in a few days Discussed this case with Case Management, ears of the patient's healthcare proxy is invoked indefinitely due to cognitive impairment, HCP is patient's son Alberto Kimble, attempted to contact proxy by telephone unable to make contact in voicemail is full unable to leave a voicemail for call back. Patient did allow for XR to be obtained which reveals an irregular lucency in the distal aspect of the residual 4th metatarsal as well as in the distal aspect of the proximal phalanx of the 3rd digit osteomyelitis cannot be excluded from this. Would like to obtain CT with contrast for further evaluation however still unable to have patient agreeable to obtain lab work. <Shawnee Cervantes CNP - Last Filed: 01/15/22 17:56> Time: 16:42 <Shawnee Cervantes CNP - Last Filed: 01/15/22 17:56> Reevaluation #2: Spoke with [facility] [employer] Product Consultant, Myles Dominguez, discussed current situation. Still unable to make contact with patient's healthcare proxy. Patient continues to refuse care at this time. Again he does have tachycardia there is concern for possible osteomyelitis and/or sepsis. Unable to get patient to allow IV or labs at this time. Recommendation that while patient remains relatively stable to continue to try and make contact with healthcare proxy. Patient signed out to Maricel LERMA pending patient cooperation or contact with proxy. <Shawnee Cervantes CNP - Last Filed: 01/15/22 17:56> Time: 17:44 <Shawnee Cervantes CNP - Last Filed: 01/15/22 17:56> Reevaluation #3: 2053--still unable to make contact with healthcare proxy, patient is still refusing labs at this time. ED care transferred to CLEMENTINE Griffin pending cooperation of patient or Proxy contact <FLORENTIN Anderson - Last Filed: 01/15/22 20:55> MDM - Wound/Laceration Medical Records Attestation: I reviewed the patient's medical records. <Shawnee Cervantes CNP - Last Filed: 01/15/22 17:56> Lab Data Attestation: I reviewed the patient's lab results. <Shawnee Cervantes CNP - Last Filed: 01/15/22 17:56> Discharge Plan Discharge Clinical Impression: Chronic ulcer of right foot <Shawnee Cervantes CNP - Last Filed: 01/15/22 17:56> Patient Disposition: Still a Patient <Shawnee Cervantes CNP - Last Filed: 01/15/22 17:56> Prescriptions: No Action insulin aspart U-100 [Novolog Flexpen U-100 Insulin] 100 unit/mL (3 mL) insulin pen See Protocol subcut TIDAC Protocol: Insulin Correction Scale Less than or equal to 110 ---- Give (units): 0 111 to 150 Give (units): 0 151 to 200 Give (units): 0 201 to 250 Give (units): 2 251 to 300 Give (units): 4 301 to 350 Give (units): 6 Greater than 350 Give (units): 8 Call MD if Blood Glucose > : 400 insulin glargine [Lantus Solostar U-100 Insulin] 100 unit/mL (3 mL) insulin pen 12 unit subcut BEDTIME amlodipine 2.5 mg Tablet 5 mg PO DAILY Qty: 0 0RF Protocol: Hold for SBP< HOLD for SBP < : 90 aspirin 81 mg Tablet,Delayed Release (Dr/Ec) 81 mg PO DAILY Qty: 0 0RF calcium carbonate [Oyster Shell Calcium 500] 500 mg calcium (1,250 mg) Tablet 1,500 mg PO DAILY Qty: 0 0RF ondansetron HCl 4 mg tablet 4 mg PO Q6H PRN (Reason: nausea and vomiting) Qty: 10 0RF polyethylene glycol 3350 [Miralax] 17 gram/dose powder 17 g PO DAILY PRN (Reason: constipation) Qty: 119 0RF levofloxacin 500 mg tablet 500 mg PO DAILY <Shawnee Cervantes CNP - Last Filed: 01/15/22 17:56>
--- NOTE | 2022-01-15 17:03 | PC.NURSE ---
Dental Hygiene Instructor used to communicate with patient . patient currently admittedly refusing to have labs drawn or IV to . provider aware and at bedside . patient aware of possible complications that can happen with refusal of labs . patient aware he will need to sign AMA form . patient aware of plan of care .
--- NOTE | 2022-01-15 20:37 | PC.NURSE ---
PATIENT REFUSED LAB DRAW ON MULTIPLE ATTEMPTS
[2022-01-15] MEDS: cephALEXin 500 MG CAPSULE PO (23:42)
--- NOTE | 2022-01-16 00:35 | PC.NURSE ---
RN-RN report given to Hakeem - pt returning to 3rd floor.
== END 2022-01-16 00:36 | disposition skilled nursing facility (03) ==
PROVIDERS: Emergency Provider Emergency Medicine; PCP Internal Medicine Geriatric Medicine
DX: E11.621 Type 2 diabetes mellitus with foot ulcer (principal); L97.419 Non-pressure chronic ulcer of right heel and midfoot with unspecified severity; Z99.3 Dependence on wheelchair; Z79.899 Other long term (current) drug therapy; Z79.4 Long term (current) use of insulin
CPT/HCPCS: 73620; 99283; 99284

== ENCOUNTER → 2022-03-05 14:27 | Outpatient (BNVA) | payer MEDICARE, MEDICAID, SELFPAY | PROVIDERS: PCP Family Medicine; Visit Provider Surgery Vascular Surgery | DX: T87.89 Other complications of amputation stump (principal); I73.9 Peripheral vascular disease, unspecified | CPT/HCPCS: 99212 ==

== ENCOUNTER → 2022-07-21 14:18 | Outpatient (BNVA) | payer MEDICARE, MEDICAID, SELFPAY | PROVIDERS: PCP Physician Assistant Medical; Visit Provider Surgery Vascular Surgery | DX: E11.621 Type 2 diabetes mellitus with foot ulcer (principal); L97.419 Non-pressure chronic ulcer of right heel and midfoot with unspecified severity; I73.9 Peripheral vascular disease, unspecified | CPT/HCPCS: 99212 ==

== ENCOUNTER → 2022-09-01 14:40 | Outpatient (BNVA) | payer MEDICARE, MEDICAID, SELFPAY | PROVIDERS: PCP Physician Assistant Medical; Visit Provider Surgery Vascular Surgery | DX: L97.509 Non-pressure chronic ulcer of other part of unspecified foot with unspecified severity (principal); E08.621 Diabetes mellitus due to underlying condition with foot ulcer | CPT/HCPCS: 99212 ==

== ENCOUNTER 2023-01-10 09:18 | Inpatient (IN) | payer MEDICARE, MEDICAID, SELFPAY ==
--- NOTE | ~2023-01-10 | CT_ITS ---
Examination: CT GI bleed. CLINICAL INDICATION: Upper GI bleed. COMPARISON: CT abdomen pelvis 01/12/2022. TECHNIQUE: 5 mm thin axial and 2 mm thin sagittal coronal images of abdomen pelvis were obtained without, with 100 mL Omnipaque 350 and delayed two-minute images. DLP 1948. This CT examination was performed using dose optimization technique as appropriate, variously including the following: Automated exposure control Adjustment of MA and/or KV according to patient size(this includes techniques or standardized protocols for targeted exams where dose is matched to indication/reason for exam; extremities or head. Use of iterative reconstruction techniques. FINDINGS: Lung bases: There is no pleural effusion.There is minimal compressive atelectasis both lung bases. The heart size is normal. There is mild coronary artery calcifications. The liver, ducts and gallbladder: The liver is normal size, contour and density. No focal lesion seen. No radiopaque gallstones or wall thickening seen. No intrahepatic or extrahepatic ductal dilatation seen. Spleen: Unremarkable. Pancreas: The pancreas is small size but unremarkable. Adrenal glands: Unremarkable. Kidneys and ureter: Both kidneys are normal size, shape and position. There are vascular calcifications in bilateral renal hilum. No radiopaque renal calculi seen. There is bilateral moderate is significant hydroureteronephrosis secondary to bladder outlet obstruction. Bladder: The bladder is undistended with diffuse bladder wall thickening and irregularity likely bladder outlet obstruction. The prostate gland is mildly enlarged. Lymphovascular structures:The abdominal aorta is of normal caliber with mild atelectatic calcification. No new lesions seen. No retroperitoneal lymph nodes or mass seen. GI tract: There is oral contrast seen within the descending, colon and the rectum which makes it difficult to evaluate contrast extravasation. In these segments. There is moderate stool, diverticula and gas seen in the colon without distention. Following contrast there is no enhancement or active intraluminal extravasation seen in the stomach, duodenal bulb and the sweep. There is no free air or free fluid. Abdominal wall: There is no evidence of hernia. Small right inguinal hernia containing fat is noted. Pelvis: The prostate gland is significantly enlarged and heterogeneous likely cause of bladder outlet obstruction. Osseous structures: There is moderate ventral bridging osteophytes along the ventral dorsal lumbar and lumbar spine. Degenerative disc changes with posterior spondylosis L5-S1 disc level is noted. CT/CT gi bleed abd pel wo/w IVcon IMPRESSION: Limited exam as there is oral contrast seen within the entire colon. There is no extravasation of intraluminal contrast in the upper GI tract. Colonic diverticulosis without diverticulitis. Mild constipation. Bilateral moderate to significant hydroureteronephrosis from bladder outlet obstruction. There is moderate heterogeneous enlargement of prostate gland. Irregular thickened bladder wall from bladder outlet obstruction is noted.
--- NOTE | 2023-01-10 09:22 | ED.GENADULT ---
HPI - General Adult General Chief complaint: GI Bleed Stated complaint: VOMITING BLOOD STARTED AT 530 TODAY Time Seen by Provider: 01/10/23 09:21 Source: patient Mode of arrival: ambulatory Limitations: other (poor historian ) History of Present Illness HPI narrative: This is a 77 year old male history of CVA, dysphagia, hypertension, ENRIQUE, anemia, PAD, presenting to the emergency department with blood in vomit since around 0530 this am. According to EMS SNF states this has never happened before and patient was vomiting stephanie red blood since this am X 1 hasn't happened since then, only takes asa no other thinners. Patient tells me he is vomiting blood and this started after eating bad food he states they always feed me bad food there , reqeuesting shrimp cocktail upon his arrival to the emergency department. Not vomiting. Stating his lower abdomen hurts. Denies CP, sob, flank pain, headache, vision changes, and dizziness. Related Data Home Medications Medication Instructions Recorded Confirmed insulin aspart U-100 100 unit/mL See Protocol subcut TIDAC 09/26/21 09/26/21 (3 mL) subcutaneous pen (Novolog FlexPen U-100 Insulin aspart) insulin glargine 100 unit/mL (3 12 unit subcut BEDTIME 09/26/21 09/26/21 mL) subcutaneous pen (Lantus Solostar U-100 Insulin) levofloxacin 500 mg tablet 500 mg PO DAILY 10/14/21 Previous Rx's Medication Instructions Recorded amlodipine 2.5 mg tablet 5 mg PO DAILY #0 tabs 10/03/21 aspirin 81 mg tablet,delayed 81 mg PO DAILY #0 tabs 10/03/21 release calcium carbonate 500 mg calcium 1,500 mg (3 x 500 mg calcium 10/03/21 (1,250 mg) tablet (Oyster Shell (1,250 mg)) PO DAILY #0 tabs Calcium 500) ondansetron HCl 4 mg tablet 4 mg PO Q6H PRN nausea and 01/12/22 vomiting #10 tabs polyethylene glycol 3350 17 17 g PO DAILY PRN constipation 01/12/22 gram/dose oral powder (Miralax) #119 grams cephalexin 500 mg capsule 500 mg PO QID 10 days #40 caps 01/15/22 doxycycline hyclate 100 mg tablet 100 mg PO BID #20 tabs 01/15/22 Allergies Allergy/AdvReac Type Severity Reaction Status Date / Time No Known Allergies Allergy Verified 01/10/23 09:37 [No Known Allergies*] Review of Systems Review of Systems: Constitutional : No Weight loss, No Fever, No Chills, No Fatigue, No Malaise ENT/Mouth : No sore throat, No Rhinorrhea Eyes: No Eye Pain, No Swelling, No Redness Cardiovascular : No Chest Pain, No SOB, No Dyspnea on Exertion, No Orthopnea, No Edema, No Palpitations Respiratory : No Cough, No Sputum, No Wheezing Gastrointestinal : No Nausea, No Vomiting, No Diarrhea, No Constipation, No abdominal Pain, No Hematochezia, No Melena, + hematemisis Genitourinary : No Dysuria, No Urinary Frequency, No Hematuria, Musculoskeletal : No joint pain, No Myalgias, No Joint Swelling Skin : No Skin Lesions, No rash Neuro : No Weakness, No Numbness, No Dizziness, No Headache Psych : No Anxiety/Panic, No Depression All other systems reviewed and are negative Yes all other systems are reviewed and are negative [facility] Past Medical History Attestation statement: The following information was validated with the patient. 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 Candidiasis of penis Cholelithiasis Decubitus ulcer of right foot Diabetes mellitus, type 2 Diverticulosis Gaytan catheter in place Hiatal hernia Hydronephrosis Hyperlipidemia Hypertension PVD (peripheral vascular disease) Sepsis Severe sepsis Wheelchair dependence Surgical History H/O hernia repair Status post below-knee amputation of left lower extremity Social History Social History Household Members: Other 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 Housing: [facility] Do you presently have visiting nurse or other home services: No Alcohol intake: never Patient Tobacco Use Status: Never used Tobacco Second Hand Smoke Exposure: No Advance Directives: Yes Advance Directives on File: Yes Advance Directives Date on File: 09/25/21 service: No Current occupational status: retired Physical Exam ED Vital Signs: Vital Signs - 24 hr 10/15/23 09:35 01/10/23 13:15 01/10/23 14:23 Temperature 98.2 F 98.3 F 98.2 F Pulse Rate 110 H 105 H 104 H Respiratory Rate 18 18 19 Blood Pressure 154/73 H 144/84 H 135/77 Pulse Oximetry 98 98 97 Oxygen Delivery Method Room Air Room Air Room Air BMI result Body Mass Index 26.3 vss Appearance: Alert.? Oriented X3.? No acute distress.? Head: Normocephalic, atraumatic, no step-offs or deformities Eyes: Pupils equal, round and reactive to light.? Neck: Normal inspection.? Neck supple.? CVS: Normal heart rate and rhythm.? Pulses normal.? Respiratory: No respiratory distress.? Breath sounds normal.? Abdomen: Soft and slightly tender to lower abdomen.? Skin: Skin warm and dry.? Normal skin color.? Normal skin turgor.? Extremities: No lower extremity edema.? No calf ttp. Global weakness Neuro: Oriented X 3.? No motor deficit.? No sensory deficit. CN 2-12 intact Course Reevaluation(s) Reevaluation #1: CBC appears to be around patient's baseline with a normocytic anemia that is better than usual. Chemistry unremarkable. No episodes of hematemesis here in the department. Patient states he is feeling well. He states he is unsure of that was even blood. OBS negative unlikely lower GI bleed. GI bleeding study with limited exam as there was oral contrast seen within the entire colon unclear why patient had oral contrast, there is no extravasation of the intraluminal contrast in the upper GI tract, colonic diverticulosis without diverticulitis with mild constipation. Bilateral moderate to significant hydroureteronephrosis from bladder outlet obstruction there is moderate heterogeneous enlargement of the prostate gland. Irregular thickened bladder wall from bladder outlet obstruction is noted. Will obtain a urine at this time. Urine pending Time: 13:48 Reevaluation #2: Spoke to SNF who states has not had oral conrast however he does drink 2 pts of milk a day. Time: 14:22 Reevaluation #3: Discussed CT with both Ryan and GI. GI recommends keeping patient in house w/ repeat CBC and possible EGD tomorrow. ? valeria coombs vs ulcer. Will speak to hospitalist. Patient Agreeable Time: 14:38 Additional Reevaluation(s): I went to go speak with patient after he stated that he refused to stay in hospital he seems confused and paranoid he thinks that the [facility] facilities coming from has his phone and they are tapping his cellphone he also thinks the facility is poisoning him, he cannot tell me why I want to admit him he is unable to repeat my teach back, I am not sure patient is understanding the severity of this, appears to be extremely paranoid. Initially he was agreeable to stay, now he is hesitant. Hospitalist speaking to patient, we explained to him we are keeping him until we are sure he is clear. Will call his family and discuss this with them. [id number] Spoke to patients son who tells me he has a hx. of dementia and seems to be confused, he is agreeable w/ father staying. Reports his father has been refusing tx and he is concerned about his fluctuating mentation, and forgetfulness. He called his son and stated he was being poisoned by the SNF, hes afraid someone is going to kill him per son. He has been very paranoid. He has reported hearing voices and being struck by UV lights that are taking over him. This patient would benifit from a psych consult at some point. Medications Administered Discontinued Medications Generic Name Dose Route Start Last Admin Trade Name Marko PRN Reason Stop Dose Admin Iohexol 80 ml 01/10/23 12:10 01/10/23 12:11 Iohexol 350 Mg/Ml 75 Ml Infus..Btl IV 01/10/23 12:11 80 ml ONCE ONE Administration Ondansetron HCl 4 mg 01/10/23 09:23 01/10/23 09:50 Ondansetron Hcl 4 Mg/2 Ml Vial IVPUSH 01/10/23 09:24 4 mg ONCE ONE Administration Pantoprazole Sodium 40 mg 01/10/23 09:30 01/10/23 09:50 Pantoprazole Sodium 40 Mg/10 Ml Vial IVPUSH 01/10/23 09:31 40 mg ONCE ONE Administration Medical Decision Making Medical Decision Making [facility] Narrative: 933 77 year old male presents w/ lower abd paina nd hematemisis since about 529 today, coming from snf takes asa PE- w/ mild lower abd discomfort Concerns for upper gi bleed. Unlikely Valeria Coombs tear or varices (no hx of liver issues or hepatitis). Will rule out electrolyte abnormalities, anemia, uti vs cystitis. Plan-labs, urine, imaging Differential Diagnosis Differential Diagnoses: The differential diagnosis associated with the presentation includes Concerns for upper gi bleed. Unlikely Valeria Coombs tear or varices (no hx of liver issues or hepatitis). Will rule out electrolyte abnormalities, anemia, uti vs cystitis. Admission/Observation Consideration of admission/observation: Escalation of care including admission/observation considered likely Consult Healthcare Provider Management of the patient was discussed with: Mining Manager (GI) Lab Data MDM Lab Attestation statement: I reviewed the patient's lab results. 01/10/23 09:54 01/10/23 09:54 Labs: Lab Results 01/10/23 Range/Units 09:54 WBC 8.3 (4.8-10.8) X10*3/uL RBC 4.46 L (4.60-5.80) X10*6/uL Hgb 11.2 L (14.0-18.0) g/dl Hct 36.0 L (42.0-52.0) % MCV 80.7 (80.0-98.0) fL MCH 25.1 L (27.0-33.0) pg MCHC 31.1 (31.0-36.0) g/dl RDW 16.9 H (11.0-16.0) % Plt Count 350 D (160-400) X10*3/uL MPV 8.7 L (9.4-12.4) fL Immature Gran % (Auto) 0.4 (0.0-0.4) % Neut % (Auto) 87.5 H (45-73) % Lymph % (Auto) 8.1 L (20-40) % Nance % (Auto) 3.3 (2-11) % Eos % (Auto) 0.1 (0-4) % Baso % (Auto) 0.6 (0-2) % Lymph # (Auto) 0.7 L (1.2-4.9) X10*3/uL Nance # (Auto) 0.3 (0.1-1.2) X10*3/uL Eos # (Auto) 0.0 (0.0-0.4) X10*3/uL Baso # (Auto) 0.1 (0.0-0.2) X10*3/uL Abs Immat Gran (auto) 0.03 (0.00-0.03) X10*3/uL Absolute Neuts (auto) 7.3 (2.0-8.3) x10*3/uL Absolute Nucleated RBC 0.000 (0.0-0.012) X10*3/uL Nucleated RBC % (auto) 0.0 (0.0-0.2) /100WBC PT 12.0 (11.1-13.3) SEC INR 1.0 (0.9-1.1) Sodium 139 (135-145) mmol/L Potassium 4.0 (3.3-5.1) mmol/L Chloride 103 (96-108) mmol/L Carbon Dioxide 23 (22-29) mmol/L Anion Gap 17 (12-20) BUN 26 H (9-16) mg/dL Creatinine 0.83 (0.5-1.4) mg/dL Estim Creat Clear Calc 58.0 Estimated GFR > 60 Random Glucose 224 H (60-115) mg/dL Calcium 9.8 D (8.4-10.2) mg/dL Magnesium 1.8 (1.6-2.6) mg/dL Total Bilirubin 0.3 (0.0-1.0) mg/dL AST 11 (5-37) U/L ALT 12 (0-40) U/L Alkaline Phosphatase 106 (39-117) U/L Total Protein 7.7 (6.5-8.0) g/dL Albumin 3.5 (3.5-5.0) g/dL Stool Occult Blood NEGATIVE (NEGATIVE) Blood Type O Positive Antibody Screen NEGATIVE Independent Interpretation I performed an independent interpretation of an: CT Scan (CT/CT gi bleed abd pel wo/w IVcon IMPRESSION: Limited exam as there is oral contrast seen within the entire colon. There is no extravasation of intraluminal contrast in the upper GI tract. Colonic diverticulosis without diverticulitis. Mild constipation. Bilateral moderate to significant hydro) Radiology Impression Discussion of test interpretation with radiology: I have reviewed the radiologist's reading. External Record Review External record reviewed: Inpatient record, Office record, Outpatient record, Prior outpatient labs, Prior outpatient radiology, Primary care record and Outside ED record Critical Care Time Critical Care Time Critical Care Time: Yes Total Critical Care Time: 35 Attestation: I attest to this time spent taking care of the patient, obtaining history, physical, reviewing labs, imaging, speaking to my attending, speaking to specialist. Discharge Plan Discharge Clinical Impression: Hematemesis Patient Disposition: Admitted As Inpatient
[2023-01-10 09:35] VITALS: BP 154/73; PULSE 110; RESP 18; TEMP 36.8; O2SAT 98; BMI 26.3
[2023-01-10] MEDS: ondansetron HCL 4 MG/2 ML VIAL IVPUSH (09:50)
[2023-01-10] MEDS: Pantoprazole Sodium 40 MG/10 ML VIAL IVPUSH ×2 (09:50→18:14)
[2023-01-10 09:59] LABS: MANUAL DIFF FLAG NO
[2023-01-10 10:06] LABS: Basophils Absolute Auto 0.1 X10*3/uL (0.0-0.2); Basophils Percent Auto 0.6 % (0-2); Eosinophils Percent Auto 0.1 % (0-4); Hemoglobin 11.2 g/dl (14.0-18.0); Imm Gran Abs Auto 0.03 X10*3/uL (0.00-0.03); Imm Gran Pct Auto 0.4 % (0.0-0.4); Lymphocytes Absolute Auto 0.7 X10*3/uL (1.2-4.9); Lymphocytes Percent Auto 8.1 % (20-40); Mean Corpuscular HGB Conc 31.1 g/dl (31.0-36.0); Mean Corpuscular Hemoglobin 25.1 pg (27.0-33.0); Mean Corpuscular Volume 80.7 fL (80.0-98.0); Mean Platelet Volume 8.7 fL (9.4-12.4); Monocytes Absolute Auto 0.3 X10*3/uL (0.1-1.2); Monocytes Percent Auto 3.3 % (2-11); Neutrophils Absolute Auto 7.3 x10*3/uL (2.0-8.3); Neutrophils Percent Auto 87.5 % (45-73); Platelet Count 350 X10*3/uL (160-400); Red Blood Count 4.46 X10*6/uL (4.60-5.80); Red Cell Distribution Width 16.9 % (11.0-16.0); White Blood Count 8.3 X10*3/uL (4.8-10.8)
[2023-01-10 10:07] LABS: OBS Int Ctl Valid YES; OBS1 NEGATIVE (NEGATIVE)
[2023-01-10 11:19] LABS: Alanine Aminotransferase 12 U/L (0-40); Albumin Level 3.5 g/dL (3.5-5.0); Alkaline Phosphatase 106 U/L (39-117); Anion Gap 17 (12-20); Aspartate Amino Transferase 11 U/L (5-37); Bilirubin Total 0.3 mg/dL (0.0-1.0); Blood Urea Nitrogen 26 mg/dL (9-16); Calcium 9.8 mg/dL (8.4-10.2); Carbon Dioxide 23 mmol/L (22-29); Chloride 103 mmol/L (96-108); Estimated Glomerular Filt Rate > 60; Glucose Random 224 mg/dL (60-115); Magnesium 1.8 mg/dL (1.6-2.6); Sodium 139 mmol/L (135-145); Total Protein 7.7 g/dL (6.5-8.0)
[2023-01-10] MEDS: iohexoL 350 MG/ML 75 ML INFUS..BTL 80 ML IV (12:11)
[2023-01-10 13:15] VITALS: BP 144/84; PULSE 105; RESP 18; TEMP 36.8; O2SAT 98
[2023-01-10 14:23] VITALS: BP 135/77; PULSE 104; RESP 19; TEMP 36.8; O2SAT 97
--- NOTE | 2023-01-10 15:40 | PM.GICN ---
History of Present Illness Data of Consult Service Date: 01/10/23 Requesting physician: Ana Laura Roman Primary Care Provider: Tita Beaver PA-C HPI Reason for consult: UGI bleeding 77 year old north korean speaking male with history of CVA, dysphagia, hypertension, ENRIQUE, anemia, PAD, brought to [facility] ED on 01/10/23 from SNF after pt had a single episode of hematemesis around 0530 am today. According to EMS SNF stated patient was vomiting stephanie red blood since this am X 1 No further episodes since then or after arrival in the ER, Hx obtained with the help of an [facility] Package Collector, Jonna. Pt states he is being fed spoiled food at the [facility] - same food daily (like mashed potatoes) Pt denies heartburn, abdominal pain or a change in bowel habits. Pt denies past hx of PUD or GI bleeding He admits to wt loss of 40 lbs. Pt is on aspirin and no NSAIDS or anticoagulation Pt denied CP, sob, flank pain, headache, vision changes, and dizziness. Labs showed stable H & H 01/10/[address] SCAN SHOWED: IMPRESSION: Limited exam as there is oral contrast seen within the entire colon. There is no extravasation of intraluminal contrast in the upper GI tract. Colonic diverticulosis without diverticulitis. Mild constipation. Bilateral moderate to significant hydroureteronephrosis from bladder outlet obstruction. There is moderate heterogeneous enlargement of prostate gland. Irregular thickened bladder wall from bladder outlet obstruction is noted. Review of Systems Review of Systems: Constitutional : No Weight loss, No Fever, No Chills, No Fatigue, No Malaise ENT/Mouth : No sore throat, No Rhinorrhea Eyes: No Eye Pain, No Swelling, No Redness Cardiovascular : No Chest Pain, No SOB, No Dyspnea on Exertion, No Orthopnea, No Edema, No Palpitations Respiratory : No Cough, No Sputum, No Wheezing Gastrointestinal : No Nausea, No Vomiting, No Diarrhea, No Constipation, No abdominal Pain, No Hematochezia, No Melena, + hematemisis Genitourinary : No Dysuria, No Urinary Frequency, No Hematuria, Musculoskeletal : No joint pain, No Myalgias, No Joint Swelling Skin : No Skin Lesions, No rash Neuro : No Weakness, No Numbness, No Dizziness, No Headache Psych : No Anxiety/Panic, No Depression All other systems reviewed and are negative Yes all other systems are reviewed and are negative [facility] Past Medical History Medical History Decubitus ulcer of right foot Anemia Gaytan catheter in place 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 PVD (peripheral vascular disease) BPH w urinary obs/LUTS Diverticulosis Cholelithiasis Hydronephrosis Sepsis Candidiasis of penis Severe sepsis Hyperlipidemia Wheelchair dependence Hiatal hernia Asthma Arthritis Hypertension Diabetes mellitus, type 2 Surgical History Surgical History Status post below-knee amputation of left lower extremity H/O hernia repair Social History Social History Household Members: Other 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 Housing: [facility] Do you presently have visiting nurse or other home services: No Alcohol intake: never Patient Tobacco Use Status: Never used Tobacco Second Hand Smoke Exposure: No Use of substances other than those prescribed or required for medical reasons: No Advance Directives: Yes Advance Directives on File: Yes Advance Directives Date on File: 09/25/21 service: No Current occupational status: retired [email or web address] Allergies Allergy/AdvReac Type Severity Reaction Status Date / Time No Known Allergies Allergy Verified 01/10/23 09:37 [No Known Allergies*] Home Medications Medication Instructions Recorded Confirmed Last Taken Type acetaminophen 650 mg tablet 650 mg PO Q4H PRN Pain 01/10/23 01/10/23 Unknown History collagenase clostridium histo. 250 1 appl topical DAILY 01/10/23 01/10/23 Unknown History unit/gram topical ointment (Santyl) insulin lispro 100 unit/mL 1 sliding scale dose subcut 01/10/23 01/10/23 Unknown History subcutaneous solution (Humalog USEASDIRECTD U-100 Insulin) omeprazole 20 mg capsule,delayed 20 mg PO DAILY 01/10/23 01/10/23 Unknown History release Physical Exam Vital Signs: Vital Signs: Last Vital Signs Temp 98.2 F 01/10/23 14:23 Pulse 104 H 01/10/23 14:23 Resp 19 01/10/23 14:23 BP 135/77 01/10/23 14:23 Pulse Ox 97 01/10/23 14:23 O2 Del Method Room Air 01/10/23 14:23 BMI result Body Mass Index 26.3 Const: General: no acute distress Nutritional Appearance: overweight Orientation/consciousness: Other orientation findings (oriented to time, place and person with paranoid ideation) Limitations: language barrier HEENT: Head: Yes normal to inspection Ears: hearing grossly normal bilaterally Mouth: Normal oral and palatal mucosa present Eyes: Sclerae: sclerae normal Pupils: Equal, round and reactive pupils present Neck: Neck: Yes normal visual inspection Chest: Chest palpation & inspection: normal inspection of the chest Resp: Effort & Inspection: normal respiratory effort Auscultation: clear to auscultation bilaterally Cardio: Palpation: normal PMI Rate: regular rate Rhythm: regular rhythm Heart sounds: S1 normal heart sound present, S2 normal heart sound present and no murmurs GI: Palpation (GI): Soft to palpation, nontender and No hepatosplenomegaly present Auscultation: normal bowel sounds Rectal Exam - Male: Yes deferred Skin: General skin exam: no rashes or lesions noted Neuro: General: gait normal and moves all extremities Cranial nerves: Yes Equal, round and reactive pupils present Extrem: General: Yes other (left BKA, bootie over right foot) Psych: Appearance: grossly normal Mental Status: mental status grossly normal Results Labs 01/10/23 09:54 01/10/23 09:54 Labs: Short CBC 01/10/23 Range/Units 09:54 WBC 8.3 (4.8-10.8) X10*3/uL Hgb 11.2 L (14.0-18.0) g/dl Hct 36.0 L (42.0-52.0) % Plt Count 350 D (160-400) X10*3/uL BMP 01/10/23 09:54 Sodium 139 Potassium 4.0 Chloride 103 Carbon Dioxide 23 BUN 26 H Creatinine 0.83 Calcium 9.8 D Liver Function 01/10/23 Range/Units 09:54 Total Bilirubin 0.3 (0.0-1.0) mg/dL AST 11 (5-37) U/L ALT 12 (0-40) U/L Alkaline Phosphatase 106 (39-117) U/L Albumin 3.5 (3.5-5.0) g/dL Assessment and Plan (1) Hematemesis: Status: Acute Plan 77 year old north korean speaking male with history of CVA, dysphagia, hypertension, ENRIQUE, anemia, PAD, brought to [facility] ED on 01/10/23 from SNF after pt had a single episode of hematemesis around 0530 am today. No further episodes since then or after arrival in the ER, UGI bleeding likely due to PUD, erosive esophagitis or MW tear. RECOMMENDATIONS: 1. Agree with IV PPI 2. Regular diet today and NPO after midnight. 3. Further evaluation with EGD tomorrow. Discussed with patient's son and HCP, Alberto Kimble, who agreed to an EGD 01/11/23 ADDENDUM: Pt scheduled for an EGD, however, patient adamantly refused to have an EGD, ate and was unable to have the EGD. Given patient's stability and lack of continued hematemesis decision made to postpone procedure and continue conservative management with PPI. Patient was discharged back to half-way facility. Time Spent With Patient Time: Total time managing care of this patient today ____ minutes. Procedures Date of Service Date of Service: 01/21/23
[2023-01-10 15:58] VITALS: BP 127/81; PULSE 101; RESP 16; O2SAT 98
--- NOTE | 2023-01-10 16:04 | PM.IMHP ---
History of Present Illness Date of Service: 01/10/23 Attending physician on admission: Edis Lin Chief Complaint: hematemesis 77-year-old male with history of hypertension, insulin-dependent type 2 diabetes, peripheral vascular disease, chronic right foot ulcer, s/p left BKA , atherosclerosis, and asthma presents to the ED from [facility] where he resides for evaluation of multiple episodes of hematemesis. The patient is oriented x4 and tells me that since last night he has had several episodes of vomiting with bright red blood. No further vomiting since arrival to the hospital. However he also tells me that he was vomiting because staff at the nursing facility have been poisoning him. ED provider did discuss with son who notes that the patient does also have underlying dementia and has been increasingly forgetful in paranoid stating that people are poisoning him and trying to kill him. He also tells us that he needs to return to the facility because he left his other phone there and people have been tapping this phone. On arrival, patient is hemodynamically stable though is slightly tachycardic to 101 on admission, no hypotension. No leukocytosis, H/H consistent with baseline at 11.2/36.0%, MCV 80.7. Creatinine 0.83, BUN 26, electrolyte levels normal. Total bilirubin 0.3, AST 11, ALT 12. Stool occult blood negative. CT abdomen/pelvis is reported to be limited due to oral contrast within the entire colon however patient had IV contrast, not oral. There is colonic diverticulosis without diverticulitis and mild constipation as well as bilateral moderate to significant hydronephrosis from bladder outlet obstruction and heterogenous enlargement of the prostate gland. In the ED, received IV ppi, ondansetron. Seen by Gastroenterology recommending admission with EGD tomorrow. Patient making claims that he wishes to AMA. However discuss further with ED provider and patient re-evaluated. Patient has been educated on current diagnosis and concern for ongoing upper GI bleeding and is unable to understand the potential repercussions of not remaining in the hospital for further evaluation. Discussed with pt son and pt will be admitted. Review of Systems Review of Systems: General: No fevers, malaise, unintentional weight loss HEENT: No blurred vision, diplopia. No sore throat, nasal congestion, rhinorrhea, sinus pain, ear pain Cardiovascular: No chest pain, palpitations, or leg edema Respiratory: No shortness of breath, wheezing, cough GI: + vomiting, hematemesis. No abdominal pain, nausea, diarrhea, constipation, melena, hematochezia : No dysuria, hematuria, increased urinary frequency, decreased urinary output MSK: No myalgia, back pain Neuro: No headaches, weakness, paresthesias Skin: No rashes or lesions [facility] Medical History Decubitus ulcer of right foot Anemia Gaytan catheter in place Atherosclerosis of cabazon arteries of right leg with ulceration of heel and midfoot PVD (peripheral vascular disease) BPH w urinary obs/LUTS Diverticulosis Cholelithiasis Hydronephrosis Sepsis Candidiasis of penis Severe sepsis Hyperlipidemia Wheelchair dependence Hiatal hernia Asthma Arthritis Hypertension Diabetes mellitus, type 2 Surgical History Status post below-knee amputation of left lower extremity H/O hernia repair Social History Household Members: Other Household Members Other:: 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 Housing: Residential Do you presently have visiting nurse or other home services: No Alcohol intake: never Patient Tobacco Use Status: Never used Tobacco Second Hand Smoke Exposure: No Use of substances other than those prescribed or required for medical reasons: No Advance Directives: Yes Advance Directives on File: Yes Advance Directives Date on File: 09/25/21 service: No Current occupational status: retired Meds Allergies Allergy/AdvReac Type Severity Reaction Status Date / Time No Known Allergies Allergy Verified 01/10/23 09:37 [No Known Allergies*] Active Medications: Current Medications Acetaminophen (Acetaminophen 325 Mg Tablet) 650 mg PO Q6H PRN PRN Reason: Pain, Mild (Pain Scale 1-3) Dextrose (Dextrose 50 % 25 Gm/50 Ml Syringe) 25 gm IVPUSH Q15M PRN; Protocol PRN Reason: per Hypoglycemia Standing Ord. Docusate Sodium (Docusate Sodium 100 Mg Capsule) 100 mg PO DAILY PRN PRN Reason: Constipation Glucose (Glucose Gel 15 Gm Gel..Gram.) 15 gm PO Q15M PRN; Protocol PRN Reason: per Hypoglycemia Standing Ord. Insulin Human Lispro (Insulin Lispro 100 Unit/Ml 3 Ml Vial) 0 unit SUBCUT QIDACHS [facility]; Protocol Ondansetron HCl (Ondansetron Hcl 4 Mg/2 Ml Vial) 4 mg IVPUSH Q8H PRN PRN Reason: Nausea and Vomiting Sodium Chloride (0.9 % Sodium Chloride Flush 3 Ml Syringe) 3 ml IVFLUSH QSHIFT [facility] Home Medications Medication Instructions Recorded Confirmed Last Taken Type acetaminophen 650 mg tablet 650 mg PO Q4H PRN Pain 01/10/23 01/10/23 Unknown History collagenase clostridium histo. 250 1 appl topical DAILY 01/10/23 01/10/23 Unknown History unit/gram topical ointment (Santyl) insulin lispro 100 unit/mL 1 sliding scale dose subcut 01/10/23 01/10/23 Unknown History subcutaneous solution (Humalog USEASDIRECTD U-100 Insulin) omeprazole 20 mg capsule,delayed 20 mg PO DAILY 01/10/23 01/10/23 Unknown History release Physical Exam Vital Signs and Narrative: Vital Signs: Last Vital Signs Temp 98.2 F 01/10/23 14:23 Pulse 101 H 01/10/23 15:58 Resp 16 01/10/23 15:58 BP 127/81 01/10/23 15:58 Pulse Ox 98 01/10/23 15:58 O2 Del Method Room Air 01/10/23 15:58 BMI result Body Mass Index 26.3 Constitutional - Awake and Alert, No apparent distress Eyes - PERRLA, EOMI Cardiovascular - S1S2, RRR, No edema Respiratory - Normal lung expansion, Normal respiratory effort, No respiratory distress, CTA bilaterally Gastrointestinal - NT / ND; +BS; No rebound or guarding Extremities - no calf tenderness bilaterally, no swelling Skin - Warm/Dry Neurological - Alert & oriented x4 Psychological - Appropriate affect, paranoid Results Labs 01/10/23 09:54 01/10/23 09:54 Labs: Laboratory Results - last 24 hr 01/10/23 09:54 MCV 80.7 MCH 25.1 L MCHC 31.1 RDW 16.9 H Plt Count 350 D MPV 8.7 L Immature Gran % (Auto) 0.4 Neut % (Auto) 87.5 H Lymph % (Auto) 8.1 L [place] % (Auto) 3.3 Eos % (Auto) 0.1 Baso % (Auto) 0.6 Lymph # (Auto) 0.7 L [place] # (Auto) 0.3 Eos # (Auto) 0.0 Baso # (Auto) 0.1 Abs Immat Gran (auto) 0.03 Absolute Neuts (auto) 7.3 Absolute Nucleated RBC 0.000 Nucleated RBC % (auto) 0.0 PT 12.0 INR 1.0 Anion Gap 17 Estim Creat Clear Calc 58.0 Estimated GFR > 60 Random Glucose 224 H Calcium 9.8 D Magnesium 1.8 Total Bilirubin 0.3 AST 11 ALT 12 Alkaline Phosphatase 106 Total Protein 7.7 Albumin 3.5 Stool Occult Blood NEGATIVE Blood Type O Positive Antibody Screen NEGATIVE Imaging Radiologist's Impressions: Impressions Abdomen/Pelvis CT 01/10/23 12:23 IMPRESSION: Limited exam as there is oral contrast seen within the entire colon. There is no extravasation of intraluminal contrast in the upper GI tract. Colonic diverticulosis without diverticulitis. Mild constipation. Bilateral moderate to significant hydroureteronephrosis from bladder outlet obstruction. There is moderate heterogeneous enlargement of prostate gland. Irregular thickened bladder wall from bladder outlet obstruction is noted. Assessment and Plan (1) Hematemesis: Status: Acute Plan 77-year-old male with history of hypertension, insulin-dependent type 2 diabetes, peripheral vascular disease, chronic right foot ulcer, s/p left BKA , atherosclerosis, and asthma to be observed for upper GI bleed. # upper GI bleed -patient with multiple episodes of hematemesis, concern for Valeria-Coombs tear versus other upper GI bleed -no recurrent episodes since arrival to the ED -H/H stable with hemoglobin 11.2, repeat CBC now -diabetic diet, keep NPO after midnight -IV PPI -EGD tomorrow per Gastroenterology -gastroenterology consult -monitor on telemetry # insulin-dependent type 2 diabetes -Humalog on sliding scale -POC glucose -diabetic diet # hypertension -hold antihypertensives in setting of acute GI bleed # PVD -hold aspirin # CHRONIC RIGHT FOOT ULCER -related to peripheral vascular disease -[employer]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 Quality Stroke Does the patient have a stroke diagnosis?: No VTE Prior VTE?: No VTE Risk Level:: Medical - moderate - high VTE Device Contraindication: N/A - Device Ordered VTE Drug Contraindication: Treatment Not Indicated
--- NOTE | 2023-01-10 16:09 | PHA.MEDREC ---
Pharmacy Consult ? Medication Reconciliation Received List From [facility] in [place]. Per facility patient usually refuses all medications and only humalog sliding scale used at facility. Pharmacy has completed the medication reconciliation.
--- NOTE | 2023-01-10 16:16 | PC.NURSE ---
PT REFUSING BLOODWORK AT THIS TIME. PT CONTINUES TO ALTERNATE BETWEEN BEING AGREEABLE TO CARE, THEN QUICKLY REFUSING IT.
[2023-01-10] MEDS: Insulin Lispro 100 UNIT/ML 3 ML VIAL SUBCUT (18:01)
[2023-01-10 18:03] LABS: Glucose, Whole Blood 162 mg/dL (60-115)
[2023-01-10 20:29] VITALS: BP 130/69; PULSE 89; RESP 16; O2SAT 98
[2023-01-10 22:10] LABS: Glucose, Whole Blood 118 mg/dL (60-115)
[2023-01-11] MEDS: 0.9 % Sodium Chloride Flush 3 ML SYRINGE IVFLUSH ×2 (01:25→09:43)
[2023-01-11 07:11] LABS: Glucose, Whole Blood 108 mg/dL (60-115)
--- NOTE | 2023-01-11 07:16 | MHC.EDTECH ---
morning POC glucose taken and reported to RN, pt boosted and sat upright in bed with breakfast tray. call light placed within reach
--- NOTE | 2023-01-11 09:51 | HO.PM.IMPN ---
Subjective Subjective Date of Service: 01/11/23 Interval History: no futher hematemsesis Physical Exam Vital Signs: Vital Signs: Last Vital Signs Temp 98.2 F 01/10/23 14:23 Pulse 89 01/10/23 20:29 Resp 16 01/10/23 20:29 BP 130/69 01/10/23 20:29 Pulse Ox 98 01/10/23 20:29 O2 Del Method Room Air 01/10/23 20:29 BMI result Body Mass Index 26.3 Const: General: no acute distress Nutritional Appearance: overweight Orientation/consciousness: Other orientation findings (oriented to time, place and person with paranoid ideation) Limitations: language barrier HEENT: Head: Yes normal to inspection Ears: hearing grossly normal bilaterally Mouth: Normal oral and palatal mucosa present Eyes: Sclerae: sclerae normal Pupils: Equal, round and reactive pupils present Neck: Neck: Yes normal visual inspection Chest: Chest palpation & inspection: normal inspection of the chest Resp: Effort & Inspection: normal respiratory effort Auscultation: clear to auscultation bilaterally Cardio: Palpation: normal PMI Rate: regular rate Rhythm: regular rhythm Heart sounds: S1 normal heart sound present, S2 normal heart sound present and no murmurs GI: Palpation (GI): Soft to palpation, nontender and No hepatosplenomegaly present Auscultation: normal bowel sounds Rectal Exam - Male: Yes deferred Skin: General skin exam: no rashes or lesions noted Neuro: General: gait normal and moves all extremities Cranial nerves: Yes Equal, round and reactive pupils present Extrem: General: Yes other (left BKA, bootie over right foot) Psych: Appearance: grossly normal Mental Status: mental status grossly normal Objective Data Active Medications Acetaminophen (Acetaminophen 325 Mg Tablet) 650 mg PO Q6H PRN PRN Reason: Pain, Mild (Pain Scale 1-3) Dextrose (Dextrose 50 % 25 Gm/50 Ml Syringe) 25 gm IVPUSH Q15M PRN; Protocol PRN Reason: per Hypoglycemia Standing Ord. Docusate Sodium (Docusate Sodium 100 Mg Capsule) 100 mg PO DAILY PRN PRN Reason: Constipation Glucose (Glucose Gel 15 Gm Gel..Gram.) 15 gm PO Q15M PRN; Protocol PRN Reason: per Hypoglycemia Standing Ord. Insulin Human Lispro (Insulin Lispro 100 Unit/Ml 3 Ml Vial) 0 unit SUBCUT [facility]; Protocol Last Admin: 01/11/23 07:27 Dose: Not Given Documented By: BITA Non-Admin Reason: No Insulin Coverage Ondansetron HCl (Ondansetron Hcl 4 Mg/2 Ml Vial) 4 mg IVPUSH Q8H PRN PRN Reason: Nausea and Vomiting Pantoprazole Sodium (Pantoprazole Sodium 40 Mg/10 Ml Vial) 40 mg IVPUSH BID@0630,1630 [facility] Last Admin: 01/11/23 09:43 Dose: Not Given Documented By: BITA Non-Admin Reason: Patient Refused Polyethylene Glycol (Polyethylene Glycol 3350 17 Gm Powd.Pack) 17 gm PO DAILY PRN PRN Reason: constipation Sodium Chloride (0.9 % Sodium Chloride Flush 3 Ml Syringe) 3 ml IVFLUSH QSHIFT [facility] Last Admin: 01/11/23 09:43 Dose: 3 ml Documented By: BITA Labs 01/10/23 09:54 01/10/23 09:54 Labs: Laboratory Results - last 24 hr 01/10/23 01/10/23 01/10/23 09:54 17:56 22:07 MCV 80.7 MCH 25.1 L MCHC 31.1 RDW 16.9 H Plt Count 350 D MPV 8.7 L Immature Gran % (Auto) 0.4 Neut % (Auto) 87.5 H Lymph % (Auto) 8.1 L [place] % (Auto) 3.3 Eos % (Auto) 0.1 Baso % (Auto) 0.6 Lymph # (Auto) 0.7 L [place] # (Auto) 0.3 Eos # (Auto) 0.0 Baso # (Auto) 0.1 Abs Immat Gran (auto) 0.03 Absolute Neuts (auto) 7.3 Absolute Nucleated RBC 0.000 Nucleated RBC % (auto) 0.0 PT 12.0 INR 1.0 Anion Gap 17 Estim Creat Clear Calc 58.0 Estimated GFR > 60 POC Glucose 162 H 118 H Random Glucose 224 H Calcium 9.8 D Magnesium 1.8 Total Bilirubin 0.3 AST 11 ALT 12 Alkaline Phosphatase 106 Total Protein 7.7 Albumin 3.5 Stool Occult Blood NEGATIVE Blood Type O Positive Antibody Screen NEGATIVE 01/11/23 07:07 MCV MCH MCHC RDW Plt Count MPV Immature Gran % (Auto) Neut % (Auto) Lymph % (Auto) [place] % (Auto) Eos % (Auto) Baso % (Auto) Lymph # (Auto) [place] # (Auto) Eos # (Auto) Baso # (Auto) Abs Immat Gran (auto) Absolute Neuts (auto) Absolute Nucleated RBC Nucleated RBC % (auto) PT INR Anion Gap Estim Creat Clear Calc Estimated GFR POC Glucose 108 Random Glucose Calcium Magnesium Total Bilirubin AST ALT Alkaline Phosphatase Total Protein Albumin Stool Occult Blood Blood Type Antibody Screen Assessment and Plan (1) Hematemesis: Status: Acute Plan 77M PMH hypertension, diabetes, peripheral vascular disease, chronic foot ulcer status post left BKA, presented with hematemesis Hematemesis Hemoglobin stable Continue IV PPI, EGD today Diabetes Insulin Hypertension BP meds on hold in setting of acute bleed Peripheral vascular disease Holding aspirin DVT prophylaxis-mechanical due to GI bleed Full code reason for continued hospitalization:egd for hematemesis Time Spent With Patient Time: Total time managing care of this patient today ____ minutes. Quality Stroke Does the patient have a stroke diagnosis?: No VTE Prior VTE?: No VTE Risk Level:: Medical - moderate - high VTE Device Contraindication: N/A - Device Ordered VTE Drug Contraindication: Treatment Not Indicated
--- NOTE | 2023-01-11 10:53 | MHC.CM.PN ---
PT IS A LTC RESIDENT OF [facility] CM ATTEMPTED TO CONTACT PTS HCP, AMENA CLARK [phone] HE ANSWERED HOWEVER REQUIRED A PIPE LINE GAUGER CM OBTAINED A PIPE LINE GAUGER WHO ASSISTED WITH CALLING AMENA BACK, HE DID NOT ANSWER RETURN TO SNF REFERRAL SENT TO [facility] PT WILL REQUIRE BLS TRANSPORT
--- NOTE | 2023-01-11 12:08 | PC.NURSE ---
pt refused Protonix stated I dont take any meds I only take insulin, I don't want it . education given, pt still refused med.
[2023-01-11 13:32] LABS: Glucose, Whole Blood 158 mg/dL (60-115)
[2023-01-11] MEDS: Insulin Lispro 100 UNIT/ML 3 ML VIAL SUBCUT (13:53)
--- NOTE | 2023-01-11 14:18 | PM.DS ---
DS: Providers Provider Date of Service: 01/11/23 Date of admission: 01/11/23 13:43 Primary care physician: Tita Beaver PA-C Consults: 01/10/23 14:40 Consult to Gastroenterology Stat Consulting Provider: Ar Chew Reason for consultation: UGIB 01/10/23 15:59 Consult to Psychiatry Routine Consulting Provider: Psych Covering Reason for consultation: paranoia DS: Diagnosis Discharge Diagnosis (1) Hematemesis: Status: Acute DS: Summary Hospital Course Hospital Course: from initial hpi: 77-year-old male with history of hypertension, insulin-dependent type 2 diabetes, peripheral vascular disease, chronic right foot ulcer, s/p left BKA , atherosclerosis, and asthma presents to the ED from [facility] where he resides for evaluation of multiple episodes of hematemesis. The patient is oriented x4 and tells me that since last night he has had several episodes of vomiting with bright red blood. No further vomiting since arrival to the hospital. However he also tells me that he was vomiting because staff at the nursing facility have been poisoning him. ED provider did discuss with son who notes that the patient does also have underlying dementia and has been increasingly forgetful in paranoid stating that people are poisoning him and trying to kill him. He also tells us that he needs to return to the facility because he left his other phone there and people have been tapping this phone. On arrival, patient is hemodynamically stable though is slightly tachycardic to 101 on admission, no hypotension. No leukocytosis, H/H consistent with baseline at 11.2/36.0%, MCV 80.7. Creatinine 0.83, BUN 26, electrolyte levels normal. Total bilirubin 0.3, AST 11, ALT 12. Stool occult blood negative. CT abdomen/pelvis is reported to be limited due to oral contrast within the entire colon however patient had IV contrast, not oral. There is colonic diverticulosis without diverticulitis and mild constipation as well as bilateral moderate to significant hydronephrosis from bladder outlet obstruction and heterogenous enlargement of the prostate gland. In the ED, received IV ppi, ondansetron. Seen by Gastroenterology recommending admission with EGD tomorrow. Patient making claims that he wishes to AMA. However discuss further with ED provider and patient re-evaluated. Patient has been educated on current diagnosis and concern for ongoing upper GI bleeding and is unable to understand the potential repercussions of not remaining in the hospital for further evaluation. Discussed with pt son and pt will be admitted. hospital course: Patient was observed for hematemesis. He refused further labs, but had no further bleeding. Plan was for EGD, however, patient ate and was unable to undergo it. Given patient's stability and lack of continued hematemesis decision made to postpone procedure and continue conservative management with PPI. Patient will be discharged back to group home facility. For diabetes was continue insulin. For hypertension will be restarted on blood pressure meds. For peripheral vascular disease aspirin will be on hold for 1 week. Of note patient had hydronephrosis without ENRIQUE on CT scan, will start Flomax. he can follow up outpatient with Urology. He had no evidence of urinary retention. Time Spent with Patient Time attestation: Total time managing care of this patient today ____ minutes. Discharge coordination time: Greater than 30 minutes Quality: Safe Use of Opioids Does Pt have an Active Cancer Diagnosis on the Problem List?: No Quality: Stroke Does the patient have a stroke diagnosis?: No Physical Exam Vital Signs: Vital Signs: Last Vital Signs Temp 98.2 F 01/10/23 14:23 Pulse 89 01/10/23 20:29 Resp 16 01/10/23 20:29 BP 130/69 01/10/23 20:29 Pulse Ox 98 01/10/23 20:29 O2 Del Method Room Air 01/10/23 20:29 BMI result Body Mass Index 26.3 Const: General: no acute distress Nutritional Appearance: overweight Orientation/consciousness: Other orientation findings (oriented to time, place and person with paranoid ideation) Limitations: language barrier HEENT: Head: Yes normal to inspection Ears: hearing grossly normal bilaterally Mouth: Normal oral and palatal mucosa present Eyes: Sclerae: sclerae normal Pupils: Equal, round and reactive pupils present Neck: Neck: Yes normal visual inspection Chest: Chest palpation & inspection: normal inspection of the chest Resp: Effort & Inspection: normal respiratory effort Auscultation: clear to auscultation bilaterally Cardio: Palpation: normal PMI Rate: regular rate Rhythm: regular rhythm Heart sounds: S1 normal heart sound present, S2 normal heart sound present and no murmurs GI: Palpation (GI): Soft to palpation, nontender and No hepatosplenomegaly present Auscultation: normal bowel sounds Rectal Exam - Male: Yes deferred Skin: General skin exam: no rashes or lesions noted Neuro: General: gait normal and moves all extremities Cranial nerves: Yes Equal, round and reactive pupils present Extrem: General: Yes other (left BKA, bootie over right foot) Psych: Appearance: grossly normal Mental Status: mental status grossly normal DS: Data Data Completed and Pending Completed studies during hospitalization [Text1]: Procedures Detachment at Left Lower Leg, High, Open Approach (06/04/20) Detachment at Right 4th Toe, Complete, Open Approach (09/25/21) Detachment at Right 5th Toe, Complete, Open Approach (09/25/21) Dilation of Left Peroneal Artery using Drug-Coated Balloon, Percutaneous Approach (05/02/20) Dilation of Left Popliteal Artery using Drug-Coated Balloon, Percutaneous Approach (05/02/20) Excision of Left Foot Subcutaneous Tissue and Fascia, Open Approach (05/02/20) Excision of Right Foot Subcutaneous Tissue and Fascia, Open Approach (08/03/20) Excision of Right Foot Tendon, Open Approach (05/02/20) Plain Radiography of Aorta and Bilateral Lower Extremity Arteries using Other Contrast (09/25/21) Transfusion of Nonautologous Red Blood Cells into Peripheral Vein, Percutaneous Approach (06/04/20) Labs on day of discharge: Laboratory Results - last 24 hr 01/10/23 01/10/23 01/11/23 17:56 22:07 07:07 POC Glucose 162 H 118 H 108 01/11/23 13:29 POC Glucose 158 H Discharge Plan Discharge Anticipated Discharge Date/Time: 01/11/23 14:16 Patient Disposition: er [facility] Discharge Diagnosis: hematemesis Referrals: Tita Beaver PA-C [Primary Care Provider] - 1 Week Discharge Medications: New omeprazole 40 mg capsule,delayed release(DR/EC) 40 mg PO BID Qty: 60 0RF Continued polyethylene glycol 3350 [Miralax] 17 gram/dose powder 17 g PO DAILY PRN (Reason: constipation) Qty: 119 0RF acetaminophen 650 mg Tablet 650 mg PO Q4H PRN (Reason: Pain) omeprazole 20 mg Capsule,Delayed Release(Dr/Ec) 20 mg PO DAILY Santyl 250 unit/gram Ointment 1 appl TOPICAL DAILY insulin lispro [Humalog U-100 Insulin] 100 unit/mL Solution 1 sliding scale dose SUBCUT USEASDIRECTD Held aspirin 81 mg Tablet,Delayed Release (Dr/Ec) 81 mg PO DAILY Qty: 0 0RF Hold Instructions: Resume on 01/17/23. Discharge Orders: Discharge Order (Routine); Ordered 01/11/23 Ordered By: Edis Lin Diet: Advance to usual diet Activity on Discharge: As tolerated Stand Alone Forms: Patient Portal Discharge page Care Plan Goals: recovery Health Concerns: hematemesis Plan of Treatment: ppi Assessment: see above
--- NOTE | 2023-01-11 16:44 | P.CNPS_ITS ---
History of Present Illness Date of Service: 01/11/2023 Chief Complaint: UGIB Reason for Consult: paranoia in setting of dementia Requesting physician: Ana Laura Roman Discussed with referring provider: Yes Sources of Information: patient interviewed, chart reviewed and crisis/core team assessment reviewed HPI Narrative: Mr. Kimble is a 77 year-old male with x of Dementia. He was brought to ED due to hematemesis. Psychiatry consult due to pt presenting with more paranoia at home per son who is his HCP. Pt seen in ED. Pt reports he came here because he was vomiting blood. He reports he feels well now and wants to go. Pt explained that there is additional test GI is awaiting to determine further treatment, However, pt insists he is fine and would like to go back home. When asked about feeling worried that people are trying to harm him at facility were he resides, pt states there is a resident who brings women, all kind of women all day long. He reports he is worried that facility lets him do this and and worries that these are questionable women that he can't trust. He denies SI/HI. he is oriented to place, month and somewhat to situation, with some misinterpretation as to what additional testing needs to happen in order for him to be safely discharged back to the facility. No VH/AH. [facility] Medical History Decubitus ulcer of right foot Anemia Gaytan catheter in place Atherosclerosis of campo arteries of right leg with ulceration of heel and midfoot PVD (peripheral vascular disease) BPH w urinary obs/LUTS Diverticulosis Cholelithiasis Hydronephrosis Sepsis Candidiasis of penis Severe sepsis Hyperlipidemia Wheelchair dependence Hiatal hernia Asthma Arthritis Hypertension Diabetes mellitus, type 2 Surgical History Status post below-knee amputation of left lower extremity H/O hernia repair Diagnostics Vital Signs (24Hr): Vital Signs - 24 hr 01/10/23 20:29 Pulse Rate 89 Respiratory Rate 16 Blood Pressure 130/69 Pulse Oximetry 98 Oxygen Delivery Method Room Air BMI result Body Mass Index 26.3 Labs 01/10/23 09:54 01/10/23 09:54 Labs: Laboratory Results - last 48 hr 01/10/23 01/10/2323 09:54 17:56 22:07 WBC 8.3 RBC 4.46 L Hgb 11.2 L Hct 36.0 L MCV 80.7 MCH 25.1 L MCHC 31.1 RDW 16.9 H Plt Count 350 D MPV 8.7 L Immature Gran % (Auto) 0.4 Neut % (Auto) 87.5 H Lymph % (Auto) 8.1 L [place] % (Auto) 3.3 Eos % (Auto) 0.1 Baso % (Auto) 0.6 Lymph # (Auto) 0.7 L [place] # (Auto) 0.3 Eos # (Auto) 0.0 Baso # (Auto) 0.1 Abs Immat Gran (auto) 0.03 Absolute Neuts (auto) 7.3 Absolute Nucleated RBC 0.000 Nucleated RBC % (auto) 0.0 PT 12.0 INR 1.0 Sodium 139 Potassium 4.0 Chloride 103 Carbon Dioxide 23 Anion Gap 17 BUN 26 H Creatinine 0.83 Estim Creat Clear Calc 58.0 Estimated GFR > 60 POC Glucose 162 H 118 H Random Glucose 224 H Calcium 9.8 D Magnesium 1.8 Total Bilirubin 0.3 AST 11 ALT 12 Alkaline Phosphatase 106 Total Protein 7.7 Albumin 3.5 Stool Occult Blood NEGATIVE Blood Type O Positive Antibody Screen NEGATIVE 01/11/23 01/11/23 07:07 13:29 WBC RBC Hgb Hct MCV MCH MCHC RDW Plt Count MPV Immature Gran % (Auto) Neut % (Auto) Lymph % (Auto) [place] % (Auto) Eos % (Auto) Baso % (Auto) Lymph # (Auto) [place] # (Auto) Eos # (Auto) Baso # (Auto) Abs Immat Gran (auto) Absolute Neuts (auto) Absolute Nucleated RBC Nucleated RBC % (auto) PT INR Sodium Potassium Chloride Carbon Dioxide Anion Gap BUN Creatinine Estim Creat Clear Calc Estimated GFR POC Glucose 108 158 H Random Glucose Calcium Magnesium Total Bilirubin AST ALT Alkaline Phosphatase Total Protein Albumin Stool Occult Blood Blood Type Antibody Screen Imaging Radiology Impressions: ITS Impressions Abdomen/Pelvis CT 01/10/23 12:23 IMPRESSION: Limited exam as there is oral contrast seen within the entire colon. There is no extravasation of intraluminal contrast in the upper GI tract. Colonic diverticulosis without diverticulitis. Mild constipation. Bilateral moderate to significant hydroureteronephrosis from bladder outlet obstruction. There is moderate heterogeneous enlargement of prostate gland. Irregular thickened bladder wall from bladder outlet obstruction is noted. Mental Status Exam Mental Status Exam Narrative: Appearance: wearing hospital gown, in bed, in NAD behavior: cooperative Psychomotor: no agitation or retardation noted Speech: clear, normal rate/rhythm/volume, spontaneous TP: mostly linear TC: some suspiciousness about residents at [facility] Mood: okay' Affect: congruent SI: denies HI: denies VH/AH: no overt signs delusions: does appear to have paranoid delusions Insight/judgment: fair x 2. Memory/cog: alert, oriented x 3 but with some difficulty understanding additional testing recommended and reason for this Medications Allergies Allergies Allergy/AdvReac Type Severity Reaction Status Date / Time No Known Allergies Allergy Verified 01/10/23 09:37 [No Known Allergies*] Assessment & Plan Assessment & Plan (1) Major neurocognitive disorder due to vascular disease, with behavioral disturbance, moderate: Status: Acute Code(s): F01.B18 - Vascular dementia, moderate, with other behavioral disturbance Plan Mr. Kimble is a 77 year-old male with hx of dementia presenting more paranoid at facility were he resides. Pt with some difficulty understanding additional testing recommend prior to be medically cleared and send back to facility. Even thought pt presents with intact orientation, he does show some difficulty processing more complex information about his care lacking ability to show appreciation for risks versus benefits if he declines or accepts care. Pt may benefit from antipsychotic, which can be initiated in community as pt not at imminent safety risk to self or others due to delusions s/s to major neurcognitive disorder. Pt appears to have vascular type of dementia in which orientation tends to be intact but higher functions of the brain like executive function are impaired. PLAN 1. no need for inpatient level of care for delusions related to dementia. Treatment can take place in the community 2. his capacity to make medical decisions is limited when it comes to more complex information and his ability to show appreciation for risks versus benefits of treatment and his decision to accept or reject them. For instance- pt wants to leave AMA despite GI needing additional testing- he is not able to show understanding of this information and insists he is fine. Total time managing care of this patient today ____ minutes.
== END 2023-01-11 15:00 | disposition skilled nursing facility (03) | DRG 379 ==
LOC: HO.ED 14:43 → HO.EDOVER 16:04
PROVIDERS: Physician Assistant; Admitting Provider Physician Assistant; Emergency Provider Emergency Medicine; PCP Physician Assistant Medical; Visit Provider Internal Medicine
DX: K92.0 Hematemesis (principal); E11.51 Type 2 diabetes mellitus with diabetic peripheral angiopathy without gangrene; L97.519 Non-pressure chronic ulcer of other part of right foot with unspecified severity; I70.235 Atherosclerosis of native arteries of right leg with ulceration of other part of foot; F03.90 Unspecified dementia, unspecified severity, without behavioral disturbance, psychotic disturbance, mood disturbance, and anxiety; Z89.512 Acquired absence of left leg below knee; Z79.4 Long term (current) use of insulin; Z79.82 Long term (current) use of aspirin; Z79.899 Other long term (current) drug therapy
CPT/HCPCS: 36415; 74178; 80053; 82272; 82947; 83735; 85025; 85610; 86850; 86900; 86901; 99222; 99285; J2405; Q9967

== ENCOUNTER → 2023-01-10 15:54 | Outpatient (BNV) | payer MEDICARE, MEDICAID, SELFPAY | PROVIDERS: Admitting Provider Physician Assistant; Emergency Provider Emergency Medicine; PCP Physician Assistant Medical; Visit Provider Physician Assistant | DX: K92.0 Hematemesis (principal) | CPT/HCPCS: 99223; 99239 ==

== ENCOUNTER → 2023-01-11 13:43 | Outpatient (BNV) | payer MEDICARE, MEDICAID, SELFPAY | PROVIDERS: Admitting Provider Physician Assistant; Emergency Provider Emergency Medicine; PCP Physician Assistant Medical; Visit Provider Internal Medicine Gastroenterology | DX: K92.0 Hematemesis (principal) | CPT/HCPCS: 99232 ==

== ENCOUNTER → 2023-01-11 13:43 | Outpatient (BNV) | payer MEDICARE, MEDICAID, SELFPAY | PROVIDERS: Admitting Provider Physician Assistant; Emergency Provider Emergency Medicine; PCP Physician Assistant Medical; Visit Provider Social Worker | DX: F01.B18 Vascular dementia, moderate, with other behavioral disturbance (principal) | CPT/HCPCS: 99283 ==